=== PATIENT | female | born 1945 ===

== ENCOUNTER → 2020-01-03 12:50 | Outpatient (BNVA) | payer MEDICARE, SELFPAY | PROVIDERS: PCP Internal Medicine; Visit Provider Nurse Practitioner Family | DX: Z76.89 Persons encountering health services in other specified circumstances (principal) ==

== ENCOUNTER 2020-04-01 13:37 | Outpatient (REF) | payer MEDICARE, SELFPAY ==
[2020-04-01 14:48] LABS: Alanine Aminotransferase 14 U/L (0-31); Albumin Level 4.2 g/dL (3.5-5.0); Alkaline Phosphatase 107 U/L (39-117); Anion Gap 13 (12-20); Aspartate Amino Transferase 13 U/L (5-31); Bilirubin Total 0.5 mg/dL (0.0-1.0); Blood Urea Nitrogen 41 mg/dL (9-16); Calcium 8.8 mg/dL (8.4-10.2); Carbon Dioxide 25 mmol/L (22-29); Chloride 107 mmol/L (96-108); Cholesterol 135 mg/dL; Estimated Glomerular Filt Rate 29; Glucose Random 173 mg/dL (60-115); HDL Cholesterol 36 mg/dL; LDL Cholesterol Calculated 57 mg/dl; Potassium 5.2 mmol/L (3.3-5.1); Sodium 140 mmol/L (135-145); Total Protein 7.4 g/dL (6.5-8.0); Triglycerides 212 mg/dL
[2020-04-01 15:12] LABS: Estimated Average Glucose 143 mg/dL; Hemoglobin A1c % 6.6 %
== END 2020-04-01 13:38 | disposition home or self-care (01) ==
LOC: HO.LAB 13:37
PROVIDERS: PCP Internal Medicine; Visit Provider Internal Medicine
DX: E11.22 Type 2 diabetes mellitus with diabetic chronic kidney disease (principal); N18.9 Chronic kidney disease, unspecified; E78.2 Mixed hyperlipidemia; I15.1 Hypertension secondary to other renal disorders
CPT/HCPCS: 36415; 80053; 80061; 83036

== ENCOUNTER 2020-04-16 12:23 | Outpatient (REF) | payer MEDICARE, SELFPAY ==
--- NOTE | ~2020-04-16 | MM_ITS ---
EXAMINATION: MM SCREENING DIGITAL MAMMOGRAPHY, BILATERAL CLINICAL INFORMATION: Screening. Asymptomatic. The lifetime risk of breast cancer based on the Tyrer-Cuzick Model is 3%. COMPARISON: Mammography: 05/15/2018, 05/09/2017, 04/15/2016, 02/25/2015 TECHNIQUE: Digital mammography is performed in craniocaudal and mediolateral oblique views along with computer-aided detection (CAD). Additional right CC and right MLO views are provided. Exam is technically challenging, requiring 2 technologists for positioning. Patient in wheelchair. Exam tailored to patient capabilities. FINDINGS: The breasts are almost entirely fatty (ACR BI-RADS breast composition Category a). Background stromal and fibroglandular densities are stable. Probable dermal calcifications overlying upper right axilla and right axillary nodes similar to prior exams. No significant changes from prior studies. MM/MM screening mammo BI IMPRESSION: No mammographic evidence of malignancy. ASSESSMENT: BI-RADS 2: Benign RECOMMENDATION: Routine annual mammography screening. This patient's information was entered into a reminder system with a target due date for their next mammogram.
== END 2020-04-16 12:24 | disposition home or self-care (01) ==
LOC: HO.MAMMO 12:23
PROVIDERS: PCP Internal Medicine; Visit Provider Internal Medicine
DX: Z12.31 Encounter for screening mammogram for malignant neoplasm of breast (principal)
CPT/HCPCS: 77067

== ENCOUNTER 2020-06-17 11:20 | Outpatient (REF) | payer MEDICARE, SELFPAY ==
[2020-06-17 12:30] LABS: Estimated Average Glucose 148 mg/dL; Hemoglobin A1c % 6.8 %
[2020-06-17 12:38] LABS: Alanine Aminotransferase 11 U/L (0-31); Albumin Level 4.1 g/dL (3.5-5.0); Alkaline Phosphatase 103 U/L (39-117); Anion Gap 14 (12-20); Aspartate Amino Transferase 12 U/L (5-31); Bilirubin Total 0.4 mg/dL (0.0-1.0); Blood Urea Nitrogen 34 mg/dL (9-16); Calcium 8.9 mg/dL (8.4-10.2); Carbon Dioxide 23 mmol/L (22-29); Chloride 110 mmol/L (96-108); Estimated Glomerular Filt Rate 29; Glucose Random 160 mg/dL (60-115); Potassium 4.7 mmol/L (3.3-5.1); Sodium 142 mmol/L (135-145); Total Protein 7.1 g/dL (6.5-8.0)
== END 2020-06-17 11:21 | disposition home or self-care (01) ==
LOC: HO.LAB 11:20
PROVIDERS: Visit Provider Internal Medicine
DX: E11.22 Type 2 diabetes mellitus with diabetic chronic kidney disease (principal); I12.9 Hypertensive chronic kidney disease with stage 1 through stage 4 chronic kidney disease, or unspecified chronic kidney disease; N13.2 Hydronephrosis with renal and ureteral calculous obstruction; E78.2 Mixed hyperlipidemia
CPT/HCPCS: 36415; 80053; 83036

== ENCOUNTER → 2020-06-23 11:44 | Outpatient (BNVA) | payer MEDICARE, SELFPAY | PROVIDERS: PCP Internal Medicine; Visit Provider Urology | CPT/HCPCS: 99212 ==

== ENCOUNTER 2020-06-24 11:22 | Outpatient (REF) | payer MEDICARE, SELFPAY ==
[2020-06-24 12:29] LABS: Glucose Urine UA NEG (NEG); Leukocyte Esterase Urine 1+ (NEG); Nitrite Urine POS (NEG); PH 5.5 (5.0-8.0); Urine Blood NEG (NEG); Urine Ketones NEG (NEG); Urine Protein NEG (NEG-TRACE)
[2020-06-24 12:31] LABS: Appearance Urine HAZY; Color Urine YELLOW
[2020-06-24 13:08] LABS: Bacteria Urine 3+ /LPF; RBC Urine 0 /HPF (0); Squamous Epithelial Cell Urine 1+ /LPF
== END 2020-06-24 11:23 | disposition home or self-care (01) ==
LOC: HO.LNP 11:22
PROVIDERS: Visit Provider Urology
DX: R35.0 Frequency of micturition (principal)
CPT/HCPCS: 81001; 87086

== ENCOUNTER 2020-06-30 11:02 | Outpatient (REF) | payer MEDICARE, SELFPAY ==
[2020-06-30 11:19] LABS: Glucose Urine UA NEG (NEG); Leukocyte Esterase Urine 1+ (NEG); Nitrite Urine POS (NEG); Urine Blood NEG (NEG); Urine Ketones NEG (NEG); Urine Protein NEG (NEG-TRACE)
[2020-06-30 11:26] LABS: Appearance Urine HAZY; Color Urine YELLOW
[2020-06-30 11:47] LABS: Bacteria Urine 2+ /LPF; Mucus Urine TRACE /LPF; RBC Urine 0 /HPF (0); Squamous Epithelial Cell Urine TRACE /LPF
== END 2020-06-30 11:03 | disposition home or self-care (01) ==
LOC: HO.LNP 11:02
PROVIDERS: Visit Provider Urology
DX: R35.0 Frequency of micturition (principal)
CPT/HCPCS: 81001

== ENCOUNTER → 2020-07-09 10:25 | Outpatient (BNVA) | payer MEDICARE, SELFPAY | PROVIDERS: PCP Internal Medicine; Visit Provider Urology | DX: Z13.89 Encounter for screening for other disorder (principal) | CPT/HCPCS: 52000; 99212 ==

== ENCOUNTER 2020-08-25 13:31 | Outpatient (REF) | payer MEDICARE, SELFPAY ==
[2020-08-25 14:14] LABS: MANUAL DIFF FLAG NO
[2020-08-25 14:17] LABS: Basophils Percent Auto 0.3 % (0-2); Eosinophils Absolute Auto 0.1 X10*3/uL (0.0-0.4); Hematocrit 38.5 % (37-47); Hemoglobin 11.8 g/dl (12.0-16.0); Imm Gran Abs Auto 0.02 X10*3/uL (0.00-0.03); Imm Gran Pct Auto 0.3 % (0.0-0.4); Lymphocytes Absolute Auto 1.5 X10*3/uL (1.2-4.9); Lymphocytes Percent Auto 23.6 % (20-40); Mean Corpuscular HGB Conc 30.6 g/dl (31.0-35.0); Mean Corpuscular Hemoglobin 29.2 pg (27.0-33.0); Mean Corpuscular Volume 95.3 fL (80-98); Mean Platelet Volume 10.6 fL (9.4-12.3); Monocytes Absolute Auto 0.5 X10*3/uL (0.1-1.2); Monocytes Percent Auto 7.9 % (2-11); Neutrophils Absolute Auto 4.3 X10*3/uL (2.0-8.3); Neutrophils Percent Auto 65.9 % (45-73); Platelet Count 324 X10*3/uL (160-400); Red Blood Count 4.04 X10*6/uL (4.20-5.50); White Blood Count 6.5 X10*3/uL (4.8-10.8)
[2020-08-25 14:28] LABS: Estimated Average Glucose 163 mg/dL; Hemoglobin A1c % 7.3 %
[2020-08-25 14:40] LABS: Alanine Aminotransferase 15 U/L (0-31); Albumin Level 4.2 g/dL (3.5-5.0); Alkaline Phosphatase 123 U/L (39-117); Anion Gap 15 (12-20); Aspartate Amino Transferase 15 U/L (5-31); Bilirubin Total 0.4 mg/dL (0.0-1.0); Blood Urea Nitrogen 25 mg/dL (9-16); Calcium 9.5 mg/dL (8.4-10.2); Carbon Dioxide 27 mmol/L (22-29); Chloride 108 mmol/L (96-108); Estimated Glomerular Filt Rate 39; Glucose Random 164 mg/dL (60-115); Potassium 4.7 mmol/L (3.3-5.1); Sodium 145 mmol/L (135-145); Total Protein 7.5 g/dL (6.5-8.0)
== END 2020-08-25 13:32 | disposition home or self-care (01) ==
LOC: HO.LAB 13:31
PROVIDERS: PCP Internal Medicine; Visit Provider Internal Medicine
DX: E11.22 Type 2 diabetes mellitus with diabetic chronic kidney disease (principal); I12.9 Hypertensive chronic kidney disease with stage 1 through stage 4 chronic kidney disease, or unspecified chronic kidney disease; N18.32 Chronic kidney disease, stage 3b; E78.2 Mixed hyperlipidemia; G56.03 Carpal tunnel syndrome, bilateral upper limbs
CPT/HCPCS: 36415; 80053; 83036; 85025

== ENCOUNTER 2020-09-07 06:08 | Day surgery (SDC) | payer MEDICARE, MEDICAID, SELFPAY ==
[2020-08-24 10:39] VITALS: BMI 38.6
--- NOTE | 2020-09-02 11:56 | P.CONAN_ITS ---
Documented by User: Jenny Wang 09/02/20 11:58 HPI - Anesthesia Eval Consult details Narrative: 75yo F for Cystoscopy Botox Injection PCP cleared Cervical myelopathy - consider if intubating PMFSH Active Problems Active Problems: All Active Problems (Updated 08/24/20 @ 09:55 by Remedios Rodas) Frequency of micturition (Acute) Urgency incontinence (Acute) Past Medical History Medical History Anxiety and depression Arthritis Asthma Chronic pain Diabetes mellitus High cholesterol HTN (hypertension) Lateral malleolar fracture Limited mobility Myocardial infarction Urgency incontinence Family History Family History Father No problems noted. 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 If so, by whom?: No Are you DNR?: No Advance Directives: No Advance Directives Information Provided: No Advance Directives on File: No (? 2017) Recently lost weight without trying: No Eating poorly because of decreased appetite: No Nutrition Risks: No Nutritional Risk Patient : No Meds Allergies Allergy/AdvReac Type Severity Reaction Status Date / Time atorvastatin [ATORVASTATIN] Allergy Intermediate SWELLING Verified 08/24/20 09:36 morphine [MORPHINE] Allergy Intermediate RASH Verified 08/24/20 09:36 zolpidem [From AMBIEN] AdvReac Intermediate SLEEP WALKS Verified 08/24/20 09:36 Home Medications Medication Instructions Recorded Confirmed Last Taken Type amlodipine 2.5 mg tablet 2.5 mg PO DAILY 06/23/20 08/24/20 Unknown History metformin 850 mg tablet 850 mg PO BID 06/23/20 08/24/20 Unknown History quetiapine 100 mg tablet 100 mg PO BEDTIME 06/23/20 08/24/20 Unknown History albuterol sulfate [ProAir HFA] 1 inh INHALATION QID PRN 08/24/20 08/24/20 Unknown History fluticasone propionate [Flovent] 1 puff INHALATION BID 08/24/20 08/24/20 Unknown History gabapentin 600 mg PO BID 08/24/20 08/24/20 Unknown History glipizide 10 mg PO DAILY 08/24/20 08/24/20 Unknown History Exam Exam Date and Time: September 02, 2020 1156 Height,Weight and Vital Signs: Height 5 ft 3 in Weight 99 kg Pertinent Lab Results Pertinent Lab Results: Laboratory Tests 08/25/20 08/25/20 13:44 13:44 WBC 6.5 Hgb 11.8 L Hct 38.5 Plt Count 324 Sodium 145 Potassium 4.7 Chloride 108 Carbon Dioxide 27 BUN 25 H Creatinine 1.33 Assessment and Plan Assessment Anesthesia Assessment: Chart Reviewed Documented by User: Kerline Kwon 09/07/20 07:14 [facility] Past Medical History Medical History Anxiety and depression Arthritis Asthma Chronic pain Diabetes mellitus High cholesterol HTN (hypertension) Lateral malleolar fracture Limited mobility Myocardial infarction Urgency incontinence Family History Family History Father No problems noted. 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 If so, by whom?: No Are you DNR?: No Advance Directives: No Advance Directives Information Provided: No Advance Directives on File: No (? 2016) Recently lost weight without trying: No Eating poorly because of decreased appetite: No Nutrition Risks: No Nutritional Risk Patient : No Meds Allergies Allergy/AdvReac Type Severity Reaction Status Date / Time atorvastatin [ATORVASTATIN] Allergy Intermediate SWELLING Verified 08/24/20 09:36 morphine [MORPHINE] Allergy Intermediate RASH Verified 08/24/20 09:36 zolpidem [From AMBIEN] AdvReac Intermediate SLEEP WALKS Verified 08/24/20 09:36 Home Medications Medication Instructions Recorded Confirmed Last Taken Type amlodipine 2.5 mg tablet 2.5 mg PO DAILY 06/23/20 08/24/20 Unknown History metformin 850 mg tablet 850 mg PO BID 06/23/20 08/24/20 Unknown History quetiapine 100 mg tablet 100 mg PO BEDTIME 06/23/20 08/24/20 Unknown History albuterol sulfate [ProAir HFA] 1 inh INHALATION QID PRN 08/24/20 08/24/20 Unknown History fluticasone propionate [Flovent] 1 puff INHALATION BID 08/24/20 08/24/20 Unknown History gabapentin 600 mg PO BID 08/24/20 08/24/20 Unknown History glipizide 10 mg PO DAILY 08/24/20 08/24/20 Unknown History Exam Airway Mallampati Class: II TM Dist: >3cm Neck ROM: Full Assessment and Plan Assessment Anesthesia Assessment: Anesthesia Plan Discussed and Chart Reviewed Final Anesthetic Review NPO: Yes ASA Class: III Final Preanesthetic Review: No Changes in Pt Med Stat, Meds/Allgs Chart Reviewed, Consent Obtained/Reviewed and Anes Risks/Benef Reviewed Patient Risk: Intermediate Procedure Risk: Low Anesthetic Plan Anesthetic Plan: MAC: Disposition: Standard PACU
[2020-09-07 06:35] VITALS: BP 137/116; PULSE 62; RESP 18; TEMP 35.8; O2SAT 98
[2020-09-07 07:11] LABS: Glucose, Whole Blood 148 mg/dL (60-115)
--- NOTE | 2020-09-07 07:18 | MHC.SHP ---
Pre-Procedural Eval Section A Date of Service: 09/07/20 Section B Chief Complaint: Urge Incontinence Details of Present Illness: failed medical therapy Relevant Family History (Specify if Yes): No Relevant Social History: None Present Medications: see Short Stay Collaborative assessment Medical History: No relevant PMH History of Previous Operations: No relevant previous surgery Allergies: Allergies Allergy/AdvReac Type Severity Reaction Status Date / Time atorvastatin [ATORVASTATIN] Allergy Intermediate SWELLING Verified 08/24/20 09:36 morphine [MORPHINE] Allergy Intermediate RASH Verified 08/24/20 09:36 zolpidem [From AMBIEN] AdvReac Intermediate SLEEP WALKS Verified 08/24/20 09:36 Review of Systems Sugical H&P ROS: Negative: Constitution, Cardiovascular, Respiratory, Neurological, Psychiatric, Hem-Onc, Allergic/Immunologic, Gastrointestinal, Genitourinary, Musculoskeletal, Integumentary, Endocrine and Eyes/Ears/Nose/Throat Exam Surgical H&P Exam: Normal: HEENT, Normal: Heart, Normal: Lungs, Normal: Extremities, Normal: Abdomen, Normal: Skin and Normal: Neurological Plan Diagnosis/Plan: Unchanged (cysto Botox injection) I have reviewed the history and physical and performed a pertinent physical examination on my patient. No changes have occurred unless specified.
[2020-09-07] MEDS: Lactated Ringers 1,000 ML 50 ML IVCONT (07:24)
[2020-09-07] MEDS: levoFLOXacin 500 MG TABLET PO (07:24)
[2020-09-07 08:06] VITALS: BP 107/67; PULSE 68; RESP 14; TEMP 36.5; O2SAT 100
--- NOTE | 2020-09-07 08:08 | P.OP_ITS ---
Operative Note Operative Note Date of Service: 09/07/20 Narrative: PreOperative Diagnosis: Overactive bladder with failure of medications Post Operative Diagnosis: Overactive bladder with failure of medications Procedure: Cystoscopy with injection 100 units Botox intra detrusor muscle Surgeon: Dr Mayito Calhoun Anesthesia: Sedation Indications for procedure: Is a very pleasant 75-year-old female. Has persistent urgency and frequency. Has failed oral medications. At office cystoscopy has effective emptying with minimal urethral rotation on cough. For cystoscopy and Botox injection. Is aware of the risks and benefits particularly related to urinary retention and possible infection. Procedure: After informed consent was verified the patient was brought to the operating room and placed in a supine position. Anesthesia was administered per protocol. Cystoscopy performed with 22 Spanish cystoscope. Bladder was emptied of urine. Bladder was refilled. Using 100 units of Botox mixed in 10 cc of normal saline injections were placed at the back wall of the bladder. 0.5cc placed at each injection site. Injections were placed in a grid 5 across and for high. Injections were placed from the inferior to superior position. Trabeculations on the bladder wall with targeted for each injection site. Procedure was tolerated well. Patient was extubated and transferred in stable condition to the recovery area. Pathology: None Drains: None
[2020-09-07 08:11] VITALS: BP 157/84; PULSE 68; RESP 16; O2SAT 100
[2020-09-07 08:16] VITALS: BP 169/92; PULSE 70; O2SAT 100
[2020-09-07] MEDS: Acetaminophen 325 MG TABLET 650 MG PO (08:22)
[2020-09-07] MEDS: Phenazopyridine HCL 100 MG TABLET PO (08:23)
[2020-09-07 08:24] VITALS: BP 177/94; PULSE 79; RESP 16; O2SAT 99
[2020-09-07 08:39] VITALS: BP 107/67; PULSE 68; RESP 16; TEMP 36.5; O2SAT 99
== END 2020-09-07 09:00 | disposition home or self-care (01) ==
PROVIDERS: PCP Internal Medicine; Visit Provider Urology
PROC: 3E0K8GC Introduction of Other Therapeutic Substance into Genitourinary Tract, Via Natural or Artificial Opening Endoscopic (ICD-10-PCS; CPT 52287; principal; 2020-09-07 07:30)
DX: N39.41 Urge incontinence (principal); N32.81 Overactive bladder; I10 Essential (primary) hypertension; E11.9 Type 2 diabetes mellitus without complications; J45.909 Unspecified asthma, uncomplicated; I25.2 Old myocardial infarction; Z79.51 Long term (current) use of inhaled steroids; Z79.84 Long term (current) use of oral hypoglycemic drugs; Z79.899 Other long term (current) drug therapy; Z88.8 Allergy status to other drugs, medicaments and biological substances; Z87.891 Personal history of nicotine dependence; Z90.49 Acquired absence of other specified parts of digestive tract
CPT/HCPCS: 52287; 82947; J0585; J2250

== ENCOUNTER → 2020-09-22 12:46 | Outpatient (BNVA) | payer MEDICARE, SELFPAY | PROVIDERS: PCP Internal Medicine | DX: N39.41 Urge incontinence (principal); E11.9 Type 2 diabetes mellitus without complications; I10 Essential (primary) hypertension; E78.00 Pure hypercholesterolemia, unspecified; Z87.891 Personal history of nicotine dependence; Z99.3 Dependence on wheelchair; Z88.5 Allergy status to narcotic agent; Z88.8 Allergy status to other drugs, medicaments and biological substances | CPT/HCPCS: 51798; 99212 ==

== ENCOUNTER 2021-01-20 23:53 | Inpatient (IN) | payer MEDICARE, SELFPAY ==
--- NOTE | ~2021-01-20 | XR_ITS ---
EXAMINATION: XR BILATERAL HIPS WITH AP PELVIS CLINICAL INFORMATION: Multiple falls, weakness COMPARISON: None TECHNIQUE: AP and frog-leg lateral views of each hip and an AP view of the pelvis. FINDINGS: Alignment across the hips is anatomic with mild to moderate degenerative change bilaterally including acetabular spurring. No acute fracture is seen. Sacroiliac joints and pubic symphysis appear intact. Degenerative changes are noted in the lower lumbar spine. XR/XR hip BI w PEL1V IMPRESSION: No acute findings identified.
--- NOTE | ~2021-01-20 | CT_ITS ---
EXAMINATION: NONCONTRAST HEAD CT NONCONTRAST CERVICAL SPINE CT INDICATION INFORMATION: Multiple falls COMPARISON: 06/18/2018 TECHNIQUE: Separate noncontrast CT examinations of the head and cervical spine were performed. Coronal head CT images and coronal and sagittal cervical spine images were created at the technologist workstation. DLP: 753 mGy-cm DOSE LOWERING TECHNIQUES: This CT examination was performed using dose optimization techniques as appropriate, variously including the following: - Automated exposure control - Adjustment of mA and/or kV according to patient size (this includes techniques or standardized protocols for targeted exams were dose is matched to indication/reason for exam; i.e. extremities or head) - Use of iterative reconstruction technique FINDINGS: Head: Partially limited evaluation due to motion and streak artifact. There is no evidence of acute intracranial hemorrhage or territorial infarction. No abnormal mass-effect or midline shift is seen. Mehta to white matter differentiation is well preserved. No extra-axial fluid collections are identified. The ventricles are normal in size. There is no abnormal attenuation within the brain parenchyma. The osseous structures and soft tissues are normal. Partially opacified left mastoid tip air cells. The visualized portions of the paranasal sinuses are well-aerated. Cervical spine: There is degenerative change at the atlantodens articulation. Redemonstrated posterior spinal fusion hardware extending from C2-C6. Hardware appears intact. There is anatomic alignment of the vertebral bodies and posterior elements. Vertebral body heights are maintained. There is disc space narrowing throughout the cervical spine along with endplate osteophytes. No evidence of acute fracture. No prevertebral soft tissue swelling. Visualized portions of the lung apices are unremarkable. The thyroid gland is unremarkable. CT/CT cervical spine wo con IMPRESSION: 1. Head: Partially limited assessment due to artifact. No acute findings identified. 2. Cervical spine: No acute findings identified. Redemonstrated postoperative changes from spinal fusion.
[2021-01-21] VITALS (9 sets, daily range): BP systolic 101–173; BP diastolic 53–93; PULSE 52–112; RESP 15–20; TEMP 36.2–36.9; O2SAT 96–98; BMI 47.5
--- NOTE | 2021-01-21 | ECG_ITS ---
Test Reason : WEAKNESS Blood Pressure : / mmHG Vent. Rate : 107 BPM Atrial Rate : 000 BPM P-R Int : 000 ms QRS Dur : 084 ms QT Int : 314 ms P-R-T Axes : 000 028 037 degrees QTc Int : 419 ms Atrial fibrillation with rapid ventricular response Nonspecific T wave abnormality Abnormal ECG When compared with ECG of 10-JUN-2016 07:00, Atrial fibrillation has replaced Sinus rhythm Vent. rate has increased BY 43 BPM Referred By: Taty Thornton Electronically Signed By:Gilbert Chavarria
--- NOTE | 2021-01-21 00:27 | PC.NURSE ---
IV established, labs obtained, IVF infusing. POC reading ALEX x 2MD notified.
[2021-01-21 00:29] LABS: Glucose, Whole Blood > 600 mg/dL (60-115)
[2021-01-21 00:32] LABS: MANUAL DIFF FLAG NO
[2021-01-21 00:33] LABS: Basophils Percent Auto 0.4 % (0-2); Eosinophils Absolute Auto 0.1 X10*3/uL (0.0-0.4); Eosinophils Percent Auto 1.4 % (0-4); Hematocrit 39.9 % (37.0-47.0); Hemoglobin 12.8 g/dl (12.0-16.0); Imm Gran Abs Auto 0.02 X10*3/uL (0.00-0.03); Imm Gran Pct Auto 0.3 % (0.0-0.4); Lymphocytes Absolute Auto 1.1 X10*3/uL (1.2-4.9); Lymphocytes Percent Auto 13.7 % (20-40); Mean Corpuscular HGB Conc 32.1 g/dl (31.0-35.0); Mean Corpuscular Hemoglobin 28.7 pg (27.0-33.0); Mean Corpuscular Volume 89.5 fL (80.0-98.0); Mean Platelet Volume 11.3 fL (9.4-12.3); Monocytes Absolute Auto 0.6 X10*3/uL (0.1-1.2); Monocytes Percent Auto 7.5 % (2-11); Neutrophils Absolute Auto 6.1 x10*3/uL (2.0-8.3); Neutrophils Percent Auto 76.7 % (45-73); Platelet Count 265 X10*3/uL (160-400); Red Blood Count 4.46 X10*6/uL (4.20-5.50); Red Cell Distribution Width 13.9 % (11.0-16.0); White Blood Count 7.9 X10*3/uL (4.8-10.8)
--- NOTE | 2021-01-21 00:36 | ED.WEAKNESS ---
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 Family also reports increased lethargy and patient herself reports increased weakness and inability to adequately support herself on her legs. Patient states that she is not been good about taking her metformin and family endorses that patient had 3 high- carbohydrate drinks today. Related Data Home Medications Medication Instructions Recorded Confirmed amlodipine 2.5 mg tablet 2.5 mg PO DAILY 06/23/20 01/21/21 metformin 850 mg tablet 850 mg PO BID 06/23/20 01/21/21 quetiapine 100 mg tablet 100 mg PO BEDTIME 06/23/20 01/21/21 albuterol sulfate 90 mcg/actuation 1 inh INHALATION QID PRN 08/24/20 01/21/21 aerosol inhaler (ProAir HFA) fluticasone propionate 110 1 puff INHALATION BID 08/24/20 01/21/21 mcg/actuation HFA aerosol inhaler gabapentin 600 mg tablet 600 mg PO BID 08/24/20 01/21/21 glipizide 10 mg tablet 10 mg PO DAILY 08/24/20 01/21/21 aspirin 81 mg capsule 81 mg PO DAILY 01/21/21 01/21/21 lisinopril 20 1 tab PO DAILY 01/21/21 01/21/21 mg-hydrochlorothiazide 25 mg tablet Allergies Allergy/AdvReac Type Severity Reaction Status Date / Time atorvastatin [ATORVASTATIN] Allergy Intermediate SWELLING Verified 01/21/21 00:13 morphine [MORPHINE] Allergy Intermediate RASH Verified 01/21/21 00:13 zolpidem [From AMBIEN] AdvReac Intermediate SLEEP WALKS Verified 01/21/21 00:13 Review of Systems Review of Systems: Pertinent positives and negatives as stated in HPI 10 point review of systems is otherwise negative. PMFSH Past Medical History Source: nursing notes reviewed Medical History Anxiety and depression Arthritis Asthma Chronic pain Diabetes mellitus High cholesterol HTN (hypertension) Lateral malleolar fracture Limited mobility Myocardial infarction Urgency incontinence Surgical History H/O neck surgery History of cataract extraction History of heart artery stent Hx of cholecystectomy Hx of colonoscopy Family History Family History Father No problems noted. 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 GENERAL: Well developed, well nourished, in no acute distress. HEAD: Normocephalic/atraumatic EYES: PERRLA, EOMI OROPHARYNX: no oral lesions noted, posterior pharynx clear NECK: Supple, no adenopathy LUNGS: Normal breath sounds. No adventitious sounds or accessory muscle use. SpO2<96> CARDIOVASCULAR: Irregular and rhythm without noted murmurs, no JVD or lower extremity edema. ABDOMEN: Obese, Soft, non-tender, non-distended with bowel sounds. MUSCULOSKELETAL: No tenderness, deformities, or effusions noted on gross inspection. EXTREMITIES: No cyanosis, clubbing or edema. SKIN: Inspection of the skin reveals no rashes NEUROLOGIC: Alert and oriented x 4. Strength and sensation to light touch were grossly intact x 4, no pronator drift, strength although weakened is symmetrical, no focal deficits noted Course Course Course Narrative: 75-year-old female with history and clinical presentation consistent with suspected deconditioning, obvious hyperglycemia without evidence to suggest DKA, due to new atrial flutter and presenting symptoms will form CT scan of the head as well as imaging of the pelvis. [id number] score: 4. Patient has a history UTI and will evaluate for that as well as IV fluid resuscitation for hyperglycemia and trend point of care glucose values. Patient will be admitted for further evaluation of new onset atrial flutter with variable block of unknown duration. Review of remaining investigations positive for UTI for which patient received antibiotics, 2.5mg Lopressor were administered with good rate control and repeat EKG still demonstrates atrial fibrillation. Glucose continues to trend downward and patient will receive Lovenox for atrial fibrillation after discussion with inpatient hospitalist. Further of evaluation of patient's glucose levels demonstrates that she will require additional IVP insulin. This was discussed with both the inpatient hospitalist as well as with the auto air conditioning apprentice. Patient otherwise does not demonstrate evidence objectively or historically to support DKA or HHS. On re-evaluation patient is noted to have a point of care glucose of 304, re-discussed with auto air conditioning apprentice who agrees with admission to the floor. Reevaluation(s) Reevaluation #1: I discussed the case with the auto air conditioning apprentice who recommends to repeat 10 units of insulin IVP and re-evaluate in 1 hour. Time: 05:43 MDM - Weakness Lab Data Result diagrams: 01/21/21 00:25 01/21/21 05:02 Labs: Lab Results 01/21/21 01/21/21 01/21/21 Range/Units 00:00 00:25 00:25 WBC 7.9 (4.8-10.8) X10*3/uL RBC 4.46 (4.20-5.50) X10*6/uL Hgb 12.8 (12.0-16.0) g/dl Hct 39.9 (37.0-47.0) % MCV 89.5 (80.0-98.0) fL MCH 28.7 (27.0-33.0) pg MCHC 32.1 (31.0-35.0) g/dl RDW 13.9 (11.0-16.0) % Plt Count 265 (160-400) X10*3/uL MPV 11.3 (9.4-12.3) fL Immature Gran % (Auto) 0.3 (0.0-0.4) % Neut % (Auto) 76.7 H (45-73) % Lymph % (Auto) 13.7 L (20-40) % [place] % (Auto) 7.5 (2-11) % Eos % (Auto) 1.4 (0-4) % Baso % (Auto) 0.4 (0-2) % Lymph # (Auto) 1.1 L (1.2-4.9) X10*3/uL [place] # (Auto) 0.6 (0.1-1.2) X10*3/uL Eos # (Auto) 0.1 (0.0-0.4) X10*3/uL Baso # (Auto) 0.0 (0.0-0.2) X10*3/uL Abs Immat Gran (auto) 0.02 (0.00-0.03) X10*3/uL Absolute Neuts (auto) 6.1 (2.0-8.3) x10*3/uL Absolute Nucleated RBC 0.000 (0.0-0.012) X10*3/uL Nucleated RBC % (auto) 0.0 (0.0-0.2) /100WBC Sodium 126 L (135-145) mmol/L Potassium 5.1 (3.3-5.1) mmol/L Chloride 93 L (96-108) mmol/L Carbon Dioxide 19 L (22-29) mmol/L Anion Gap 19 (12-20) BUN 44 H (9-16) mg/dL Creatinine 2.78 H (0.5-1.4) mg/dL Estim Creat Clear Calc 21.9 Estimated GFR 17 POC Glucose > 600 H* (60-115) mg/dL Random Glucose 897 H* D (60-115) mg/dL Lactic Acid (0.5-2.0) mmol/L Calcium 8.8 D (8.4-10.2) mg/dL Total Bilirubin 0.3 (0.0-1.0) mg/dL AST 13 (5-31) U/L ALT 15 (0-31) U/L Alkaline Phosphatase 157 H D (39-117) U/L Troponin I High Sens (<3.5-17.0) ng/L B-Natriuretic Peptide (<100) pg/mL Total Protein 7.2 (6.5-8.0) g/dL Albumin 3.7 (3.5-5.0) g/dL Urine Color Urine Appearance Urine pH (5.0-8.0) Ur Specific [place] (1.005-1.025) Urine Protein (NEG-TRACE) MG/DL Urine Glucose (UA) (NEG) MG/DL Urine Ketones (NEG) MG/DL Urine Blood (NEG) Urine Nitrite (NEG) Ur Leukocyte Esterase (NEG) Urine RBC (0) /HPF Urine WBC (0-4) /HPF Ur Squamous Epith Cells /LPF Urine Bacteria /LPF Acetone, Qual Negative (Negative) COVID-19 (REE) (Negative) COVID-19 Clin Com 01/21/21 01/21/21 01/21/21 Range/Units 00:25 01:08 02:38 WBC (4.8-10.8) X10*3/uL RBC (4.20-5.50) X10*6/uL Hgb (12.0-16.0) g/dl Hct (37.0-47.0) % MCV (80.0-98.0) fL MCH (27.0-33.0) pg MCHC (31.0-35.0) g/dl RDW (11.0-16.0) % Plt Count (160-400) X10*3/uL MPV (9.4-12.3) fL Immature Gran % (Auto) (0.0-0.4) % Neut % (Auto) (45-73) % Lymph % (Auto) (20-40) % [place] % (Auto) (2-11) % Eos % (Auto) (0-4) % Baso % (Auto) (0-2) % Lymph # (Auto) (1.2-4.9) X10*3/uL [place] # (Auto) (0.1-1.2) X10*3/uL Eos # (Auto) (0.0-0.4) X10*3/uL Baso # (Auto) (0.0-0.2) X10*3/uL Abs Immat Gran (auto) (0.00-0.03) X10*3/uL Absolute Neuts (auto) (2.0-8.3) x10*3/uL Absolute Nucleated RBC (0.0-0.012) X10*3/uL Nucleated RBC % (auto) (0.0-0.2) /100WBC Sodium (135-145) mmol/L Potassium (3.3-5.1) mmol/L Chloride (96-108) mmol/L Carbon Dioxide (22-29) mmol/L Anion Gap (12-20) BUN (9-16) mg/dL Creatinine (0.5-1.4) mg/dL Estim Creat Clear Calc Estimated GFR POC Glucose (60-115) mg/dL Random Glucose (60-115) mg/dL Lactic Acid (0.5-2.0) mmol/L Calcium (8.4-10.2) mg/dL Total Bilirubin (0.0-1.0) mg/dL AST (5-31) U/L ALT (0-31) U/L Alkaline Phosphatase (39-117) U/L Troponin I High Sens 7.5 (<3.5-17.0) ng/L B-Natriuretic Peptide 31 (<100) pg/mL Total Protein (6.5-8.0) g/dL Albumin (3.5-5.0) g/dL Urine Color YELLOW Urine Appearance HAZY Urine pH 5.5 (5.0-8.0) Ur Specific [place] 1.010 (1.005-1.025) Urine Protein NEG (NEG-TRACE) MG/DL Urine Glucose (UA) >=1000 H (NEG) MG/DL Urine Ketones NEG (NEG) MG/DL Urine Blood TRACE (NEG) Urine Nitrite POS H (NEG) Ur Leukocyte Esterase 1+ H (NEG) Urine RBC 1-4 (0) /HPF Urine WBC 50-75 H (0-4) /HPF Ur Squamous Epith Cells 1+ /LPF Urine Bacteria 4+ /LPF Acetone, Qual (Negative) COVID-19 (REE) Negative (Negative) COVID-19 Clin Com See Note 01/21/21 01/21/21 01/21/21 Range/Units 02:57 03:12 03:59 WBC (4.8-10.8) X10*3/uL RBC (4.20-5.50) X10*6/uL Hgb (12.0-16.0) g/dl Hct (37.0-47.0) % MCV (80.0-98.0) fL MCH (27.0-33.0) pg MCHC (31.0-35.0) g/dl RDW (11.0-16.0) % Plt Count (160-400) X10*3/uL MPV (9.4-12.3) fL Immature Gran % (Auto) (0.0-0.4) % Neut % (Auto) (45-73) % Lymph % (Auto) (20-40) % [place] % (Auto) (2-11) % Eos % (Auto) (0-4) % Baso % (Auto) (0-2) % Lymph # (Auto) (1.2-4.9) X10*3/uL [place] # (Auto) (0.1-1.2) X10*3/uL Eos # (Auto) (0.0-0.4) X10*3/uL Baso # (Auto) (0.0-0.2) X10*3/uL Abs Immat Gran (auto) (0.00-0.03) X10*3/uL Absolute Neuts (auto) (2.0-8.3) x10*3/uL Absolute Nucleated RBC (0.0-0.012) X10*3/uL Nucleated RBC % (auto) (0.0-0.2) /100WBC Sodium 129 L (135-145) mmol/L Potassium 5.4 H (3.3-5.1) mmol/L Chloride 100 (96-108) mmol/L Carbon Dioxide 21 L (22-29) mmol/L Anion Gap 13 (12-20) BUN 40 H (9-16) mg/dL Creatinine 2.39 H (0.5-1.4) mg/dL Estim Creat Clear Calc 25.5 Estimated GFR 20 POC Glucose > 600 H* (60-115) mg/dL Random Glucose 734 H* (60-115) mg/dL Lactic Acid 1.6 (0.5-2.0) mmol/L Calcium 8.4 (8.4-10.2) mg/dL Total Bilirubin (0.0-1.0) mg/dL AST (5-31) U/L ALT (0-31) U/L Alkaline Phosphatase (39-117) U/L Troponin I High Sens (<3.5-17.0) ng/L B-Natriuretic Peptide (<100) pg/mL Total Protein (6.5-8.0) g/dL Albumin (3.5-5.0) g/dL Urine Color Urine Appearance Urine pH (5.0-8.0) Ur Specific [place] (1.005-1.025) Urine Protein (NEG-TRACE) MG/DL Urine Glucose (UA) (NEG) MG/DL Urine Ketones (NEG) MG/DL Urine Blood (NEG) Urine Nitrite (NEG) Ur Leukocyte Esterase (NEG) Urine RBC (0) /HPF Urine WBC (0-4) /HPF Ur Squamous Epith Cells /LPF Urine Bacteria /LPF Acetone, Qual (Negative) COVID-19 (REE) (Negative) COVID-19 Clin Com 01/21/21 01/21/21 01/21/21 Range/Units 04:07 05:00 05:02 WBC (4.8-10.8) X10*3/uL RBC (4.20-5.50) X10*6/uL Hgb (12.0-16.0) g/dl Hct (37.0-47.0) % MCV (80.0-98.0) fL MCH (27.0-33.0) pg MCHC (31.0-35.0) g/dl RDW (11.0-16.0) % Plt Count (160-400) X10*3/uL MPV (9.4-12.3) fL Immature Gran % (Auto) (0.0-0.4) % Neut % (Auto) (45-73) % Lymph % (Auto) (20-40) % [place] % (Auto) (2-11) % Eos % (Auto) (0-4) % Baso % (Auto) (0-2) % Lymph # (Auto) (1.2-4.9) X10*3/uL [place] # (Auto) (0.1-1.2) X10*3/uL Eos # (Auto) (0.0-0.4) X10*3/uL Baso # (Auto) (0.0-0.2) X10*3/uL Abs Immat Gran (auto) (0.00-0.03) X10*3/uL Absolute Neuts (auto) (2.0-8.3) x10*3/uL Absolute Nucleated RBC (0.0-0.012) X10*3/uL Nucleated RBC % (auto) (0.0-0.2) /100WBC Sodium 135 (135-145) mmol/L Potassium 4.4 (3.3-5.1) mmol/L Chloride 107 (96-108) mmol/L Carbon Dioxide 19 L (22-29) mmol/L Anion Gap 13 (12-20) BUN 37 H (9-16) mg/dL Creatinine 2.11 H (0.5-1.4) mg/dL Estim Creat Clear Calc 28.9 Estimated GFR 23 POC Glucose 545 H* 502 H* (60-115) mg/dL Random Glucose 589 H* (60-115) mg/dL Lactic Acid (0.5-2.0) mmol/L Calcium 8.0 L (8.4-10.2) mg/dL Total Bilirubin (0.0-1.0) mg/dL AST (5-31) U/L ALT (0-31) U/L Alkaline Phosphatase (39-117) U/L Troponin I High Sens (<3.5-17.0) ng/L B-Natriuretic Peptide (<100) pg/mL Total Protein (6.5-8.0) g/dL Albumin (3.5-5.0) g/dL Urine Color Urine Appearance Urine pH (5.0-8.0) Ur Specific [place] (1.005-1.025) Urine Protein (NEG-TRACE) MG/DL Urine Glucose (UA) (NEG) MG/DL Urine Ketones (NEG) MG/DL Urine Blood (NEG) Urine Nitrite (NEG) Ur Leukocyte Esterase (NEG) Urine RBC (0) /HPF Urine WBC (0-4) /HPF Ur Squamous Epith Cells /LPF Urine Bacteria /LPF Acetone, Qual (Negative) COVID-19 (REE) (Negative) COVID-19 Clin Com 01/21/21 Range/Units 07:35 WBC (4.8-10.8) X10*3/uL RBC (4.20-5.50) X10*6/uL Hgb (12.0-16.0) g/dl Hct (37.0-47.0) % MCV (80.0-98.0) fL MCH (27.0-33.0) pg MCHC (31.0-35.0) g/dl RDW (11.0-16.0) % Plt Count (160-400) X10*3/uL MPV (9.4-12.3) fL Immature Gran % (Auto) (0.0-0.4) % Neut % (Auto) (45-73) % Lymph % (Auto) (20-40) % [place] % (Auto) (2-11) % Eos % (Auto) (0-4) % Baso % (Auto) (0-2) % Lymph # (Auto) (1.2-4.9) X10*3/uL [place] # (Auto) (0.1-1.2) X10*3/uL Eos # (Auto) (0.0-0.4) X10*3/uL Baso # (Auto) (0.0-0.2) X10*3/uL Abs Immat Gran (auto) (0.00-0.03) X10*3/uL Absolute Neuts (auto) (2.0-8.3) x10*3/uL Absolute Nucleated RBC (0.0-0.012) X10*3/uL Nucleated RBC % (auto) (0.0-0.2) /100WBC Sodium (135-145) mmol/L Potassium (3.3-5.1) mmol/L Chloride (96-108) mmol/L Carbon Dioxide (22-29) mmol/L Anion Gap (12-20) BUN (9-16) mg/dL Creatinine (0.5-1.4) mg/dL Estim Creat Clear Calc Estimated GFR POC Glucose 304 H (60-115) mg/dL Random Glucose (60-115) mg/dL Lactic Acid (0.5-2.0) mmol/L Calcium (8.4-10.2) mg/dL Total Bilirubin (0.0-1.0) mg/dL AST (5-31) U/L ALT (0-31) U/L Alkaline Phosphatase (39-117) U/L Troponin I High Sens (<3.5-17.0) ng/L B-Natriuretic Peptide (<100) pg/mL Total Protein (6.5-8.0) g/dL Albumin (3.5-5.0) g/dL Urine Color Urine Appearance Urine pH (5.0-8.0) Ur Specific [place] (1.005-1.025) Urine Protein (NEG-TRACE) MG/DL Urine Glucose (UA) (NEG) MG/DL Urine Ketones (NEG) MG/DL Urine Blood (NEG) Urine Nitrite (NEG) Ur Leukocyte Esterase (NEG) Urine RBC (0) /HPF Urine WBC (0-4) /HPF Ur Squamous Epith Cells /LPF Urine Bacteria /LPF Acetone, Qual (Negative) COVID-19 (REE) (Negative) COVID-19 Clin Com ECG Data Attestation: I personally reviewed and interpreted this ECG as follows: Prior ECG tracings: available for review (06/10/2016) Interpretation: Atrial flutter with variable block, HR-107, QRS/QTC are within normal limits. 0433: Atrial fibrillation, HR-88, QRS/QTc wnl Critical Care Time Critical Care Time Critical Care Time: Yes Total Critical Care Time: 30 Attestation: I personally attest to this time spent taking care of the patient. Discharge Plan Discharge Clinical Impression: Hyperglycemia, Atrial flutter, LETHA (acute kidney injury), Multiple falls, Acute UTI Patient Disposition: Admitted As Inpatient
[2021-01-21 00:42] LABS: Acetone, serum QL Negative (Negative)
[2021-01-21] MEDS: 0.9 % Sodium Chloride 2,000 ML 999 ML IV ×2 (00:46→03:28)
[2021-01-21 00:54] LABS: Troponin-I High Sensitivity 7.5 ng/L (<3.5-17.0)
[2021-01-21 00:56] LABS: Alanine Aminotransferase 15 U/L (0-31); Albumin Level 3.7 g/dL (3.5-5.0); Alkaline Phosphatase 157 U/L (39-117); Anion Gap 19 (12-20); Aspartate Amino Transferase 13 U/L (5-31); Bilirubin Total 0.3 mg/dL (0.0-1.0); Blood Urea Nitrogen 44 mg/dL (9-16); Calcium 8.8 mg/dL (8.4-10.2); Carbon Dioxide 19 mmol/L (22-29); Chloride 93 mmol/L (96-108); Creatinine Clr Calc Pharmacy 21.9; Estimated Glomerular Filt Rate 17; Glucose Random 897 mg/dL (60-115); Potassium 5.1 mmol/L (3.3-5.1); Sodium 126 mmol/L (135-145); Total Protein 7.2 g/dL (6.5-8.0)
[2021-01-21 01:27] LABS: COVID-19 Test Negative (Negative); IDNOW Serial# 9DD0AD1C
--- NOTE | 2021-01-21 01:50 | PC.NURSE ---
PT having CT and xray performed at this time.
[2021-01-21 02:35] LABS: B Type Natriuretic Peptide 31 pg/mL (<100)
[2021-01-21 02:54] LABS: Appearance Urine HAZY; Color Urine YELLOW; Glucose Urine UA >=1000 MG/DL (NEG); Leukocyte Esterase Urine 1+ (NEG); Nitrite Urine POS (NEG); PH 5.5 (5.0-8.0); UACC Culture Trigger YES; Urine Blood TRACE (NEG); Urine Ketones NEG (NEG); Urine Protein NEG (NEG-TRACE)
[2021-01-21 03:00] LABS: Bacteria Urine 4+ /LPF; Squamous Epithelial Cell Urine 1+ /LPF; WBC Urine 50-75 /HPF (0-4)
[2021-01-21] MEDS: Metoprolol Tartrate 5 MG/5 ML VIAL 2.5 MG IVPUSH (03:27)
[2021-01-21] MEDS: Insulin Regular, Human 100 UNIT/ML 3 ML VIAL 12 UNIT IVPUSH (03:31)
[2021-01-21 03:46] LABS: Anion Gap 13 (12-20); Blood Urea Nitrogen 40 mg/dL (9-16); Calcium 8.4 mg/dL (8.4-10.2); Carbon Dioxide 21 mmol/L (22-29); Chloride 100 mmol/L (96-108); Creatinine Clr Calc Pharmacy 25.5; Estimated Glomerular Filt Rate 20; Potassium 5.4 mmol/L (3.3-5.1); Sodium 129 mmol/L (135-145)
[2021-01-21 03:57] LABS: Glucose Random 734 mg/dL (60-115)
[2021-01-21 04:08] LABS: Glucose, Whole Blood > 600 mg/dL (60-115)
[2021-01-21 04:11] LABS: Glucose, Whole Blood 545 mg/dL (60-115)
[2021-01-21 04:14] LABS: Lactic Acid 1.6 mmol/L (0.5-2.0)
[2021-01-21] MEDS: cefTRIAXone sodium 1 GM in 0.9 % Sodium Chloride 50 ML IV (04:18)
--- NOTE | 2021-01-21 04:27 | ECG_ITS ---
Test Reason : FALL Blood Pressure : / mmHG Vent. Rate : 088 BPM Atrial Rate : 000 BPM P-R Int : 000 ms QRS Dur : 076 ms QT Int : 382 ms P-R-T Axes : 000 037 069 degrees QTc Int : 462 ms Atrial fibrillation Nonspecific T wave abnormality Abnormal ECG When compared with ECG of 21-JAN-2021 00:50, No significant change was found Referred By: Taty Thornton Electronically Signed By:Gilbert Chavarria
[2021-01-21 05:05] LABS: Glucose, Whole Blood 502 mg/dL (60-115)
[2021-01-21] MEDS: Insulin Lispro 100 UNIT/ML 3 ML VIAL SUBCUT ×4 (05:27→21:41)
[2021-01-21 05:28] LABS: Anion Gap 13 (12-20); Blood Urea Nitrogen 37 mg/dL (9-16); Carbon Dioxide 19 mmol/L (22-29); Chloride 107 mmol/L (96-108); Creatinine Clr Calc Pharmacy 28.9; Estimated Glomerular Filt Rate 23; Glucose Random 589 mg/dL (60-115); Potassium 4.4 mmol/L (3.3-5.1); Sodium 135 mmol/L (135-145)
[2021-01-21] MEDS: Enoxaparin Sodium 120 MG/0.8 ML SYRINGE SUBCUT (06:23)
[2021-01-21] MEDS: Insulin Regular, Human 100 UNIT/ML 3 ML VIAL 10 UNIT IVPUSH (06:33)
--- NOTE | 2021-01-21 07:33 | PC.NURSE ---
Pt refusing bloodwork at this time. RN made aware.
[2021-01-21 07:38] LABS: Glucose, Whole Blood 304 mg/dL (60-115)
[2021-01-21 08:14] LABS: Glucose, Whole Blood > 600 mg/dL (60-115)
[2021-01-21 08:14] LABS: Glucose, Whole Blood > 600 mg/dL (60-115)
[2021-01-21] MEDS: Aspirin Enteric Coated 81 MG TABLET.DR PO (09:40)
[2021-01-21] MEDS: Gabapentin 600 MG TABLET PO ×2 (09:40→21:32)
--- NOTE | 2021-01-21 10:32 | PM.IMHP ---
History of Present Illness Date of Service: 01/21/21 Chief Complaint: Weakness and Falls This is a 75 yo F who is wheel chair bound with a PMH of DM, HTN, Urinary incontinence, Asthma, HLD, CAD s/p VA with stenting who presents to the hospital with complaints of multiple falls (3) over the last 1 week. Patient does speak some [place]i, but interperter services are used for the full history. She reports that has sustained 3 falls over the last 1 week, all of which have occurred in the same manner. She reports that she uses a power wheel chair and does transfer from chair to bed by herself. During this process, she frequently moves the wheel chair, by accident and ends up falling on her bottom. She denies any loss of consciousness. She denies any seizure type activity. She denies any current pain. In regards to her diabetes, she reports only being on oral treatment. She reports that she has not missed any doses of her metformin / glipizide. She does endorse however that she does not follow a diabetic diet and often has drinks with high sugar content. She also endorses chronic urinary incontinence, but more recently over the last several weeks she reports dysuria and cloudy urine. She denies any fevers or chills. Denies any flank pain. In the ED, her work up showed acute kidney injury (SCr 2.78) with a baseline around 1.3. Her blood glucose was 897 with a negative gap / acetone. She was also in new onset rapid a. fib and her UA was suggestive of UTI. A CT c-spine / head were negative for acute findings, as was hip/pelvic XR. She was given a dose of lovenox (for a. fib -- Chadsvasc score of 5), Multiple rounds of IV and sucbutaneous insulin, 2L IVF, 1 dose of rocephin , IV meotprolol. She had persistent hyperglycemia and LETHA and now will be admitted for further care. Review of Systems Review of Systems: negative except what is mentioned in the [facility] Medical History Anxiety and depression Arthritis Asthma Chronic pain Diabetes mellitus High cholesterol HTN (hypertension) Lateral malleolar fracture Limited mobility Myocardial infarction Urgency incontinence Family History Father No problems noted. Mother Diabetes High blood pressure Stomach cancer Surgical History H/O neck surgery History of cataract extraction History of heart artery stent Hx of cholecystectomy Hx of colonoscopy Social History Household Members: None Housing: Assisted Living Facility Are you a primary day care teacher to a significant other at home: No Do you presently have visiting nurse or other home services: Yes (ISAEL, SERGIO) Alcohol intake: current Alcohol intake frequency: does not drink Patient Tobacco Use Status: Former Tobacco user Quit Date: 2004 Tobacco use type: Cigarette Years Smoked: 30-40 years Second Hand Smoke Exposure: No Advance Directives: No Advance Directives Information Provided: No Meds Allergies Allergy/AdvReac Type Severity Reaction Status Date / Time atorvastatin [ATORVASTATIN] Allergy Intermediate SWELLING Verified 01/21/21 00:13 morphine [MORPHINE] Allergy Intermediate RASH Verified 01/21/21 00:13 zolpidem [From AMBIEN] AdvReac Intermediate SLEEP WALKS Verified 01/21/21 00:13 Active Medications: Current Medications Acetaminophen (Acetaminophen 325 Mg Tablet) 650 mg PO Q6H PRN PRN Reason: Pain, Mild (Pain Scale 1-3) Albuterol Sulfate (Albuterol Sulfate 90 Mcg 8 Gm Inhaler) 1 puff INHALE QID PRN PRN Reason: Wheezing Aspirin (Aspirin Enteric Coated 81 Mg Tablet.) 81 mg PO DAILY [facility] Last Admin: 01/21/21 09:40 Dose: 81 mg Documented by: Dextrose (Dextrose 50 % 25 Gm/50 Ml Vial) 25 gm IVPUSH Q15M PRN; Protocol PRN Reason: per Hypoglycemia Standing Ord. Gabapentin (Gabapentin 600 Mg Tablet) 600 mg PO BID [facility] Last Admin: 01/21/21 09:40 Dose: 600 mg Documented by: Glucose (Glucose Gel 15 Gm Gel..Gram.) 15 gm PO Q15M PRN; Protocol PRN Reason: per Hypoglycemia Standing Ord. Insulin Human Lispro (Insulin Lispro 100 Unit/Ml 3 Ml Vial) 0 unit SUBCUT QIDACHS [facility]; Protocol Sodium Chloride (0.9 % Sodium Chloride Flush 3 Ml Syringe) [facility] Home Medications Medication Instructions Recorded Confirmed Last Taken Type amlodipine 2.5 mg tablet 2.5 mg PO DAILY 06/23/20 01/21/21 Unknown History metformin 850 mg tablet 850 mg PO BID 06/23/20 01/21/21 01/19/21 10:00 History quetiapine 100 mg tablet 100 mg PO BEDTIME 06/23/20 01/21/21 Unknown History albuterol sulfate 90 mcg/actuation 1 inh INHALATION QID PRN 08/24/20 01/21/21 Unknown History aerosol inhaler (ProAir HFA) fluticasone propionate 110 1 puff INHALATION BID 08/24/20 01/21/21 01/20/21 13:00 History mcg/actuation HFA aerosol inhaler gabapentin 600 mg tablet 600 mg PO BID 08/24/20 01/21/21 01/20/21 09:00 History glipizide 10 mg tablet 10 mg PO DAILY 08/24/20 01/21/21 01/19/21 09:00 History aspirin 81 mg capsule 81 mg PO DAILY 01/21/21 01/21/21 Unknown History lisinopril 20 1 tab PO DAILY 01/21/21 01/21/21 Unknown History mg-hydrochlorothiazide 25 mg tablet Physical Exam Vital Signs and Narrative: Vital Signs: Last Vital Signs Temp 98.4 F 01/21/21 00:07 Pulse 81 01/21/21 06:18 Resp 15 01/21/21 06:18 BP 115/78 01/21/21 06:18 Pulse Ox 98 01/21/21 06:18 BMI result Body Mass Index 47.5 Const: Other: Constitutional - Awake and Alert, No apparent distress Eyes - PERRLA, EOMI Cardiovascular - S1S2, IRR, no LE edema or JVD Respiratory - Normal lung expansion, Normal respiratory effort, No respiratory distress, CTA bilaterally Gastrointestinal - NT / ND; +BS; No rebound or guarding - No CVA tenderness Extremities - no calf tenderness bilaterally, no swelling Musculoskeletal - Normal inspection Skin - Warm/Dry Neurological - Alert & oriented x3, No facial asymmetry, CN 2-12 in tact; B/L UE strenght NL; LLE 3/5; RLE 4/5 (unchanged per patient report) Psychological - Appropriate affect Results Labs CBC and Chem 7: 01/21/21 00:25 01/21/21 05:02 Labs: Laboratory Results - last 24 hr 01/21/21 01/21/21 01/21/21 00:00 00:01 00:25 MCV 89.5 MCH 28.7 MCHC 32.1 RDW 13.9 Plt Count 265 MPV 11.3 Immature Gran % (Auto) 0.3 Neut % (Auto) 76.7 H Lymph % (Auto) 13.7 L Faulk % (Auto) 7.5 Eos % (Auto) 1.4 Baso % (Auto) 0.4 Lymph # (Auto) 1.1 L Faulk # (Auto) 0.6 Eos # (Auto) 0.1 Baso # (Auto) 0.0 Abs Immat Gran (auto) 0.02 Absolute Neuts (auto) 6.1 Absolute Nucleated RBC 0.000 Nucleated RBC % (auto) 0.0 Anion Gap Estim Creat Clear Calc Estimated GFR POC Glucose > 600 H* > 600 H* Random Glucose Lactic Acid Calcium Total Bilirubin AST ALT Alkaline Phosphatase Troponin I High Sens B-Natriuretic Peptide Total Protein Albumin Urine Color Urine Appearance Urine pH Ur Specific [place] Urine Protein Urine Glucose (UA) Urine Ketones Urine Blood Urine Nitrite Ur Leukocyte Esterase Urine RBC Urine WBC Ur Squamous Epith Cells Urine Bacteria Acetone, Qual COVID-19 (REE) COVID-19 Clin Com 01/21/21 01/21/21 01/21/21 00:25 00:25 01:08 MCV MCH MCHC RDW Plt Count MPV Immature Gran % (Auto) Neut % (Auto) Lymph % (Auto) Faulk % (Auto) Eos % (Auto) Baso % (Auto) Lymph # (Auto) Faulk # (Auto) Eos # (Auto) Baso # (Auto) Abs Immat Gran (auto) Absolute Neuts (auto) Absolute Nucleated RBC Nucleated RBC % (auto) Anion Gap 19 Estim Creat Clear Calc 21.9 Estimated GFR 17 POC Glucose Random Glucose 897 H* D Lactic Acid Calcium 8.8 D Total Bilirubin 0.3 AST 13 ALT 15 Alkaline Phosphatase 157 H D Troponin I High Sens 7.5 B-Natriuretic Peptide 31 Total Protein 7.2 Albumin 3.7 Urine Color Urine Appearance Urine pH Ur Specific [place] Urine Protein Urine Glucose (UA) Urine Ketones Urine Blood Urine Nitrite Ur Leukocyte Esterase Urine RBC Urine WBC Ur Squamous Epith Cells Urine Bacteria Acetone, Qual Negative COVID-19 (REE) Negative COVID-19 Clin Com See Note 01/21/21 01/21/2101/21/21 02:38 02:57 02:58 MCV MCH MCHC RDW Plt Count MPV Immature Gran % (Auto) Neut % (Auto) Lymph % (Auto) Faulk % (Auto) Eos % (Auto) Baso % (Auto) Lymph # (Auto) Faulk # (Auto) Eos # (Auto) Baso # (Auto) Abs Immat Gran (auto) Absolute Neuts (auto) Absolute Nucleated RBC Nucleated RBC % (auto) Anion Gap Estim Creat Clear Calc Estimated GFR POC Glucose > 600 H* > 600 H* Random Glucose Lactic Acid Calcium Total Bilirubin AST ALT Alkaline Phosphatase Troponin I High Sens B-Natriuretic Peptide Total Protein Albumin Urine Color YELLOW Urine Appearance HAZY Urine pH 5.5 Ur Specific [place] 1.010 Urine Protein NEG Urine Glucose (UA) >=1000 H Urine Ketones NEG Urine Blood TRACE Urine Nitrite POS H Ur Leukocyte Esterase 1+ H Urine RBC 1-4 Urine WBC 50-75 H Ur Squamous Epith Cells 1+ Urine Bacteria 4+ Acetone, Qual COVID-19 (REE) COVID-19 [facility] 01/21/21 01/21/21 01/21/21 03:12 03:59 04:07 MCV MCH MCHC RDW Plt Count MPV Immature Gran % (Auto) Neut % (Auto) Lymph % (Auto) Faulk % (Auto) Eos % (Auto) Baso % (Auto) Lymph # (Auto) Faulk # (Auto) Eos # (Auto) Baso # (Auto) Abs Immat Gran (auto) Absolute Neuts (auto) Absolute Nucleated RBC Nucleated RBC % (auto) Anion Gap 13 Estim Creat Clear Calc 25.5 Estimated GFR 20 POC Glucose 545 H* Random Glucose 734 H* Lactic Acid 1.6 Calcium 8.4 Total Bilirubin AST ALT Alkaline Phosphatase Troponin I High Sens B-Natriuretic Peptide Total Protein Albumin Urine Color Urine Appearance Urine pH Ur Specific [place] Urine Protein Urine Glucose (UA) Urine Ketones Urine Blood Urine Nitrite Ur Leukocyte Esterase Urine RBC Urine WBC Ur Squamous Epith Cells Urine Bacteria Acetone, Qual COVID-19 (REE) COVID-19 Clin Com 01/21/21 01/21/21 01/21/21 05:00 05:02 07:35 MCV MCH MCHC RDW Plt Count MPV Immature Gran % (Auto) Neut % (Auto) Lymph % (Auto) Faulk % (Auto) Eos % (Auto) Baso % (Auto) Lymph # (Auto) Faulk # (Auto) Eos # (Auto) Baso # (Auto) Abs Immat Gran (auto) Absolute Neuts (auto) Absolute Nucleated RBC Nucleated RBC % (auto) Anion Gap 13 Estim Creat Clear Calc 28.9 Estimated GFR 23 POC Glucose 502 H* 304 H Random Glucose 589 H* Lactic Acid Calcium 8.0 L Total Bilirubin AST ALT Alkaline Phosphatase Troponin I High Sens B-Natriuretic Peptide Total Protein Albumin Urine Color Urine Appearance Urine pH Ur Specific [place] Urine Protein Urine Glucose (UA) Urine Ketones Urine Blood Urine Nitrite Ur Leukocyte Esterase Urine RBC Urine WBC Ur Squamous Epith Cells Urine Bacteria Acetone, Qual COVID-19 (REE) COVID-19 Clin Com Imaging Radiologist's Impressions: Impressions Cervical Spine CT 01/21/21 01:40 IMPRESSION: 1. Head: Partially limited assessment due to artifact. No acute findings identified. 2. Cervical spine: No acute findings identified. Redemonstrated postoperative changes from spinal fusion. Head CT 01/21/21 01:45 IMPRESSION: 1. Head: Partially limited assessment due to artifact. No acute findings identified. 2. Cervical spine: No acute findings identified. Redemonstrated postoperative changes from spinal fusion. Hip/Pelvis X-Ray 01/21/21 01:55 IMPRESSION: No acute findings identified. Assessment and Plan (1) LETHA (acute kidney injury): Status: Acute This is a 75 yo F with multiple medical problems who presents to the hospital after sustained mechanical falls over the last week. She is found to have LETHA, severe hyperglycemia, new onset a. fib and UTI. She will be admitted for further treatment. 1. Acute Kidney Injury Baseline SCr around 1.3, presented >2x elevation of 2.78 Likely pre-renal from dehydration secondary to severe hyperglycemia Received 2L IVF in the ED with minimal improvement in renal function; Continue LR @ 100 cc/hr Check CPK in light of her recent falls Monitor I/O If not improved by tomorrow, will check renal ultrasound / get nephrology on the case 2. Uncontrolled DM presented with POC >800; last chem shows glucose >500 Check POC now and QIDACHS Patient reports non-compliance with a diabetic diet Will check a HBA1C Hold oral meds 3. New-onset A. Fib initially rapid HR in the 120, but has responded to IV metoprolol start PO metoprolol this afternoon CHADSVASC score of 5 -- received 120mg of lovenox (1mg/kg); Start oral OAC tomorrow; D/w her and her daughter on the phone about risk v benefits. Both are in agreement to start anticoagulation 4. UTI UA positive and she reports dysuria / cloudy urine IV rocephin; follow culturews Patient does not have sepsis at this time 5. Hyponatremia (pseudo -- from hyperglycemia) and hyperK both improving monitor 6. CAD - s/p [facility] + Stenting continue asa / statin Betablocker to be added as above continue baseline meds once med rec completed and if appropriate. Full Code Quality Stroke Does the patient have a stroke diagnosis?: No VTE Prior VTE?: No VTE Risk Level:: Medical - moderate - high VTE Device Contraindication: Treatment Not Indicated VTE Drug Contraindication: N/A - Med Ordered
[2021-01-21 11:04] LABS: Hematocrit 37.9 % (37.0-47.0); Hemoglobin 12.3 g/dl (12.0-16.0); Mean Corpuscular HGB Conc 32.5 g/dl (31.0-35.0); Mean Corpuscular Hemoglobin 28.5 pg (27.0-33.0); Mean Corpuscular Volume 87.7 fL (80.0-98.0); Mean Platelet Volume 10.9 fL (9.4-12.3); Platelet Count 244 X10*3/uL (160-400); Red Blood Count 4.32 X10*6/uL (4.20-5.50); Red Cell Distribution Width 13.7 % (11.0-16.0); White Blood Count 8.7 X10*3/uL (4.8-10.8)
--- NOTE | 2021-01-21 11:15 | PHA.MEDREC ---
Pharmacy Consult ? Medication Reconciliation Pharmacy has completed the medication reconciliation.
[2021-01-21 11:19] LABS: Prothrombin Time 11.5 SEC (9.9-13.0)
[2021-01-21 11:22] LABS: Partial Thromboplastin Time 39.1 SEC (24.1-38.0)
[2021-01-21 11:45] LABS: Glucose, Whole Blood 341 mg/dL (60-115)
[2021-01-21] MEDS: Lactated Ringers 1,000 ML 100 ML IVCONT ×2 (12:44→22:05)
[2021-01-21 14:50] LABS: Estimated Average Glucose 266 mg/dL; Hemoglobin A1c % 10.9 %
[2021-01-21 17:57] LABS: Glucose, Whole Blood 410 mg/dL (60-115)
--- NOTE | 2021-01-21 18:18 | MHC.CM.PN ---
Addendum entered by Heidi Nieto 01/21/21 18:27: No referrals placed pending hospital course. Original Note: CM met with admitted patient with bed assignment pending. A&Ox3. air quality chemist used as pt is Citizen [place] speaking only. IMM reviewed and signed per protocol 01/21/21@ 1805. Copy given and to medical records. HCP on file. HCP Batool Woodard ([phone]). Pt lives alone.Has CRA services through [employer]/granddaughter. Pt is W/C bound and has an electric W/C. Also has DM supplies at home. Pt is fully vaccinated with IntooBR. PCP is Dr. Phelan. D/C plan is home with continued services and / VNA services for DM education/medication management. Pt will need BLS transportation home. CM to follow for d/c needs.
[2021-01-21 21:33] LABS: Glucose, Whole Blood 413 mg/dL (60-115)
[2021-01-21] MEDS: 0.9 % Sodium Chloride Flush 3 ML SYRINGE IVFLUSH (22:10)
[2021-01-21 22:27] LABS: Glucose, Whole Blood 418 mg/dL (60-115)
[2021-01-22] VITALS (7 sets, daily range): BP systolic 131–145; BP diastolic 82–101; PULSE 74–102; RESP 17–19; TEMP 36.2–37.2; O2SAT 97–99
--- NOTE | 2021-01-22 01:59 | CONS_ITS ---
DATE OF SERVICE: REASON FOR CONSULTATION: I was called to see this patient to assist in the management of acute kidney injury. HISTORY OF PRESENT ILLNESS: To summarize, Shweta is a 75-year-old woman with a history of longstanding diabetes mellitus, stage 3 chronic kidney disease, baseline creatinine is around 1.3 mg/dL. She has history of urinary incontinence. She comes to the hospital with a chief complaint of weakness and falls and she has had some weakness in her right leg. At the time of admission, she was found to have mild hyperkalemia with hyponatremia and uncontrolled blood sugars. Serum creatinine was more than 2.8. She was given IV fluids and the serum creatinine is slightly improved. The potassium was normalized. This consultation was requested for management of the chronic kidney disease as well. PAST MEDICAL HISTORY: Ongoing medical problems include history of obesity, asthma, anxiety, chronic back pain, diabetes mellitus, hypertension, chronic kidney disease stage 3, history of NC, urinary incontinence. FAMILY HISTORY: Noncontributory to this admission. SURGICAL HISTORY: Includes neck surgery, cataract extraction, coronary artery stent placement, cholecystectomy, and colonoscopy. SOCIAL HISTORY: Lives in assisted living. No history of smoking or alcohol abuse at present. History of smoking in the past. MEDICATIONS: At time of admission include gabapentin 600 mg b.i.d., aspirin, albuterol, acetaminophen, lisinopril/hydrochlorothiazide 20/25 one a day, glipizide, fluticasone, albuterol, metformin, amlodipine 2.5 mg. ALLERGIES: SHE IS ALLERGIC TO ATORVASTATIN, MORPHINE, AND ZOLPIDEM. REVIEW OF SYSTEMS: Positive for frequent falls. No headache, nausea, vomiting. No abdominal pain, diarrhea, constipation. No dysuria, urgency. She has incontinence. No fever. No rash. All other systems were reviewed and negative. Family was at the bedside. PHYSICAL EXAMINATION: GENERAL: On examination, Shweta is an elderly woman. She is obese, comfortable, not in any distress. NECK: Supple. No JVD. LUNGS: Air entry equal. No rales. HEART: S1, S2 heard. No gallop or rub. ABDOMEN: Soft, nontender. Bowel sounds heard. NEUROLOGIC: Alert, awake, oriented. No asterixis. EXTREMITIES: No significant edema. No rash. No clubbing. VITAL SIGNS: Blood pressure was 115/78, pulse is 81, temperature 98. LABORATORY DATA: Sodium 135, potassium 4.4, CO2 of 19, BUN 37, creatinine 2.1, blood sugar 589. Urinalysis showed glycosuria with nitrites, no rbc's in blood, no protein by dipstick. Hemoglobin 12.3, platelets 244, WBC 8.7. IMPRESSION: 1. A 75-year-old woman with diabetes mellitus, hypertension, and chronic kidney disease, presents with fall and acute kidney injury with hyperkalemia and uncontrolled diabetes mellitus with hyponatremia. 2. Acute kidney injury is most likely due to hypoperfusion from the use of AIME inhibitors and diuretic and in the setting of hyperglycemia. 3. Hyperkalemia due to acute kidney injury and use of AIME inhibitor. 4. Hyponatremia due to the combination of the use of hydrochlorothiazide, which decreases free water clearance. Also, she may have pseudohyponatremia due to elevated blood sugar as well. RECOMMENDATION: To hold lisinopril/hydrochlorothiazide for the time being, cautiously hydrated with normal saline. Optimize blood sugar. The potassium has normalized. We will monitor the potassium closely along with a total CO2, if the CO2 drops into 18, I would add sodium bicarbonate tablets. Serum sodium is normalized. The dose of gabapentin needs to be reduced. We will be happy to follow along with the team. Alberto Salgado MD BPA/MODL / [id number]
[2021-01-22] MEDS: cefTRIAXone sodium 1 GM in 0.9 % Sodium Chloride 50 ML IV (04:52)
[2021-01-22] MEDS: Acetaminophen 325 MG TABLET 650 MG PO ×2 (04:53→15:35)
[2021-01-22 06:22] LABS: Anion Gap 14 (12-20); Blood Urea Nitrogen 31 mg/dL (9-16); Calcium 9.1 mg/dL (8.4-10.2); Carbon Dioxide 19 mmol/L (22-29); Chloride 110 mmol/L (96-108); Creatinine Clr Calc Pharmacy 35.3; Estimated Glomerular Filt Rate 29; Glucose Random 370 mg/dL (60-115); Potassium 4.9 mmol/L (3.3-5.1); Sodium 138 mmol/L (135-145)
[2021-01-22] MEDS: Insulin Lispro 100 UNIT/ML 3 ML VIAL SUBCUT ×7 (06:29→20:51)
--- NOTE | 2021-01-22 06:29 | MHC.PIE ---
p; lab glucose 370 i; dr smith notified; new order give early dose humalog per ss now e; humalog 10u given per ss. will cont to monitor
[2021-01-22 07:28] LABS: Glucose, Whole Blood 342 mg/dL (60-115)
--- NOTE | 2021-01-22 07:30 | CA_ITS ---
Transthoracic Echocardiogram Patient (Last, First, Middle): Shweta Woodard, Gender: Female Date of : 1945 Age: 75 Procedure Date: 01/22/2021 Procedure Type: Transthoracic Echocardiogram Location: [facility] [place] Height: 157.48 cm Weight: 117.94 kg BSA: 2.14 m2 Heart Rate: bpm BP: 131 / 89 mmHg Surveyor Geophysical Prospecting: RAMAKRISHNA Referring MD: Aldo Mantilla MD Symptoms: new onset a. fib Study Quality: Fair Conclusions: - Normal left ventricular size and systolic function. - Normal right ventricular cavity size and systolic function. Findings Left Ventricle Normal left ventricular size and systolic function. There is mildly increased left ventricular wall thickness. The visually estimated ejection fraction is between 55-60%. There is no evidence of regional wall motion abnormalities. Diastolic function is indeterminate on the basis of available data. Right Ventricle Normal right ventricular cavity size and systolic function. Atria Both atria are normal in size. Aortic Valve There is a normal trileaflet aortic valve. There is no aortic valve stenosis. There is no aortic valve regurgitation. Mitral Valve Normal mitral valve structure and function. There is no mitral valve regurgitation. There is no mitral valve stenosis. Pulmonic Valve The pulmonic valve is likely normal. Tricuspid Valve Normal tricuspid valve structure and function. There is trace tricuspid valve regurgitation. Normal right atrial pressure. There is no evidence of pulmonary hypertension. Great Vessels All visible segments of the aorta are normal in size. The visualized portions of the pulmonary artery and branches are normal. Venous The inferior vena cava is normal in size and collapses greater than 50% with inspiration. Pericardium/Pleural There is no evidence of pericardial effusion. Measurements 2D Linear Measurements IVSd: 1.15 0.6-0.9/0.6-1.0 cm LVIDd: 4.30 3.9-5.3/4.2-5.9 cm LVIDd Index: 2.01 2.4-3.2/2.2-3.1 cm/m2 LVIDs: 3.32 2.0-3.6 cm LVPWd: 1.01 0.7-1.1 cm Ao Root: 3.10 2.1-3.5 cm LA Diam: 3.00 2.7-3.8/3.0-4.0 cm LAIDs Index: 1.40 1.5-2.3 cm/m2 LV Mass: 197.68 67-162/88-224 g LV Mass Index: 92.37 43-95/49-115 g/m2 LVOT Diam: 2.00 3.0+(-)1.3 cm 2D Systolic Function EF 4C: 44.90 >55% EF 2C: 49.20 >55% EF BiP: 45.70 >55% Aortic Valve AoV Pk Davey: 1.32 AoV Mn Davey: 0.96 AoV VTI: 0.20 AoV Pk Grad: 7.00 Aov Mn Grad: 4.00 WILLIE Cont.VTI: 2.56 LVOT LVOT Pk Davey: 0.90 LVOT Mn Davey: 0.59 LVOT VTI: 0.17 LVOT Pk Grad: 3.00 LVOT Mn Grad: 2.00 LVOT Diam: 2.00 LVOT Area: 3.14 Tricuspid Valve TR Pk Davey: 2.09 TR Pk Grad: 17.00 RA Press: 8.00 RVSP: 25.00 Great Vessels Aorta Ao Root-2D: 3.10 2.0-3.7 cm Ao Asc: 3.20 2.1-3.4 cm Updated in Other Vendor System with Status of Final Gilbert Chavarria MD electronically signed on 01/22/2021 10:49:19 PM with status of Final
[2021-01-22] MEDS: Aspirin Enteric Coated 81 MG TABLET.DR PO (09:27)
[2021-01-22] MEDS: Lactated Ringers 1,000 ML 100 ML IVCONT (09:27)
[2021-01-22] MEDS: Gabapentin 600 MG TABLET PO ×2 (09:27→20:50)
[2021-01-22] MEDS: Metoprolol Tartrate 25 MG TABLET PO ×3 (09:27→20:50)
[2021-01-22] MEDS: Insulin Glargine,Hum.rec.anlog 100 UNIT/ML 10 ML VIAL 15 UNIT SUBCUT (09:28)
--- NOTE | 2021-01-22 10:05 | P.PNIM_ITS ---
Subjective Subjective Date of Service: 01/22/21 Interval History: seen and examined this AM reports feeling less weak denies cp or sob, no palp Review of Systems negative except interval history Physical Exam Vital Signs: Vital Signs: Last Vital Signs Temp 98.1 F 01/22/21 07:18 Pulse 102 H 01/22/21 07:18 Resp 18 01/22/21 07:18 BP 145/92 H 01/22/21 07:18 Pulse Ox 98 01/22/21 07:18 BMI result Body Mass Index 47.5 Const: Other: General - no acute distress, appears comfortable Cardiovascular - irr, slightly tachycardic Lungs - normal respiratory effort, clear to auscultation bilaterally, no wheezing Abdomen - soft, nontender, no rebound or guarding Extremities - no edema bilaterally Neuro - awake and alert, no focal deficits Objective Data Active Medications Acetaminophen (Acetaminophen 325 Mg Tablet) 650 mg PO Q6H PRN PRN Reason: Pain, Mild (Pain Scale 1-3) Last Admin: 01/22/21 04:53 Dose: 650 mg Documented by: CASSANDRA Albuterol Sulfate (Albuterol Sulfate 90 Mcg 8 Gm Inhaler) 1 puff INHALE QID PRN PRN Reason: Wheezing Aspirin (Aspirin Enteric Coated 81 Mg Tablet.Dr) 81 mg PO DAILY [facility] Last Admin: 01/22/21 09:27 Dose: 81 mg Documented by: VIDHYA Dextrose (Dextrose 50 % 25 Gm/50 Ml Vial) 25 gm IVPUSH Q15M PRN; Protocol PRN Reason: per Hypoglycemia Standing Ord. Gabapentin (Gabapentin 600 Mg Tablet) 600 mg PO BID [facility] Last Admin: 01/22/21 09:27 Dose: 600 mg Documented by: VIDHYA Glucose (Glucose Gel 15 Gm Gel..Gram.) 15 gm PO Q15M PRN; Protocol PRN Reason: per Hypoglycemia Standing Ord. Lactated Ringer's (Lr) 1,000 mls @ 100 mls/hr IVCONT .Q10H [facility] Last Admin: 01/22/21 09:27 Dose: 100 mls/hr Documented by: VIDHYA Ceftriaxone Sodium 1 gm/ (Sodium Chloride) 50 mls @ 100 mls/hr IV Q24H [facility] Last Infusion: 01/22/21 05:30 Dose: 0 mls/hr Documented by: CASSANDRA Insulin Glargine (Insulin Glargine,Hum.Rec.Anlog 100 Unit/Ml 10 Ml Vial) 15 unit SUBCUT DAILY [facility] Last Admin: 01/22/21 09:28 Dose: 15 unit Documented by: VIDHYA Insulin Human Lispro (Insulin Lispro 100 Unit/Ml 3 Ml Vial) 0 unit SUBCUT QIDACHS [facility]; Protocol Last Admin: 01/22/21 06:29 Dose: 10 unit Documented by: CASSANDRA Insulin Human Lispro (Insulin Lispro 100 Unit/Ml 3 Ml Vial) 4 unit SUBCUT QIDACHS [facility]; Protocol Metoprolol Tartrate (Metoprolol Tartrate 25 Mg Tablet) 25 mg PO Q6H [facility]; P rotocol Last Admin: 01/22/21 09:27 Dose: 25 mg Documented by: VIDHYA Pharmacy Consult (Consult Rx Perform Med Rec) 1 each MISCELLANE ONCE PRN PRN Reason: Consult order Sodium Chloride (0.9 % Sodium Chloride Flush 3 Ml Syringe) 3 ml IVFLUSH QSHIFT [facility] Last Admin: 01/22/21 07:27 Dose: Not Given Documented by: VIDHYA Non-Admin Reason: IV Running Labs CBC & Chem 7: 01/21/21 10:57 01/22/21 05:21 Labs: Laboratory Results - last 24 hr 01/21/21 01/21/21 01/21/21 00:25 05:02 10:57 MCV 87.7 MCH 28.5 MCHC 32.5 RDW 13.7 Plt Count 244 MPV 10.9 Absolute Nucleated RBC 0.000 Nucleated RBC % (auto) 0.0 PT INR APTT Anion Gap Estim Creat Clear Calc Estimated GFR POC Glucose Random Glucose Estimat Average Glucose 266 Hemoglobin A1c % 10.9 Calcium Total Creatine Kinase 138 01/21/21 01/21/21 01/21/21 10:57 11:38 17:53 MCV MCH MCHC RDW Plt Count MPV Absolute Nucleated RBC Nucleated RBC % (auto) PT 11.5 INR 1.0 APTT 39.1 H Anion Gap Estim Creat Clear Calc Estimated GFR POC Glucose 341 H 410 H* Random Glucose Estimat Average Glucose Hemoglobin A1c % Calcium Total Creatine Kinase 01/21/21 01/21/21 01/22/21 21:29 22:08 05:21 MCV MCH MCHC RDW Plt Count MPV Absolute Nucleated RBC Nucleated RBC % (auto) PT INR APTT Anion Gap 14 Estim Creat Clear Calc 35.3 Estimated GFR 29 POC Glucose 413 H* 418 H* Random Glucose 370 H* Estimat Average Glucose Hemoglobin A1c % Calcium 9.1 D Total Creatine Kinase 01/22/21 07:13 MCV MCH MCHC RDW Plt Count MPV Absolute Nucleated RBC Nucleated RBC % (auto) PT INR APTT Anion Gap Estim Creat Clear Calc Estimated GFR POC Glucose 342 H Random Glucose Estimat Average Glucose Hemoglobin A1c % Calcium Total Creatine Kinase Microbiology Microbiology Results: Microbiology 01/21/21 03:59 Blood Culture - Preliminary Blood - Venous No growth after 24 hours. 01/21/21 03:59 Blood Culture - Preliminary Blood - Venous Prelim: GPC Gram Stain only Assessment and Plan (1) LETHA (acute kidney injury): Status: Acute Assessment and Plan: This is a 75 yo F with multiple medical problems who presents to the hospital a fter sustained mechanical falls over the last week. She is found to have LETHA, severe hyperglycemia, new onset a. fib and UTI. She will be admitted for further treatment. 1. Acute Kidney Injury on CKD3 Improving slowly hold IVF today, receive >5L already hold AIME / HCTZ 2. Uncontrolled DM remains uncontrolled with sugars >3-400 range continue sliding scale, add 4 units schduled + lantus 15 units daily on oral at home, but her A1C >10; may need insulin upon d/c 3. New-onset A. Fib rates remain 100+ on monitor metorpolol 25mg qid start oral anti-coagulation -- Eliquis 5mg bid 4. UTI rocephin urine pending blood cx - 1/2 positive (GPC) -- likely contaminant 5. Hyponatremia (pseudo? -- from hyperglycemia) and hyperK resolved 6. CAD - s/p [place] + Stenting continue asa / statin Beta-lanette to be added as above Full Code DVT pptx, Eliquis Quality Stroke Does the patient have a stroke diagnosis?: No VTE Prior VTE?: No VTE Risk Level:: Medical - moderate - high VTE Device Contraindication: Treatment Not Indicated VTE Drug Contraindication: N/A - Med Ordered
--- NOTE | 2021-01-22 10:56 | PM.PNNEP ---
Subjective Subjective Date of Service: 02/13/21 Interval history: Events noted Physical Exam Vital Signs: Vital Signs: Last Vital Signs Temp 98.1 F 01/22/21 07:18 Pulse 102 H 01/22/21 07:18 Resp 18 01/22/21 07:18 BP 145/92 H 01/22/21 07:18 Pulse Ox 98 01/22/21 07:18 BMI result Body Mass Index 47.5 Const: Other: General - no acute distress, appears comfortable Cardiovascular - irr, slightly tachycardic Lungs - normal respiratory effort, clear to auscultation bilaterally, no wheezing Abdomen - soft, nontender, no rebound or guarding Extremities - no edema bilaterally Neuro - awake and alert, no focal deficits Objective Data Labs CBC & Chem 7: 01/21/21 10:57 01/24/21 08:38 Labs: Laboratory Results - last 24 hr 01/21/21 01/21/21 01/21/21 00:25 05:02 10:57 WBC 8.7 RBC 4.32 Hgb 12.3 Hct 37.9 MCV 87.7 MCH 28.5 MCHC 32.5 RDW 13.7 Plt Count 244 MPV 10.9 Absolute Nucleated RBC 0.000 Nucleated RBC % (auto) 0.0 PT INR APTT Sodium Potassium Chloride Carbon Dioxide Anion Gap BUN Creatinine Estim Creat Clear Calc Estimated GFR POC Glucose Random Glucose Estimat Average Glucose 266 Hemoglobin A1c % 10.9 Calcium Total Creatine Kinase 138 01/21/21 01/21/21 01/21/21 10:57 11:38 17:53 WBC RBC Hgb Hct MCV MCH MCHC RDW Plt Count MPV Absolute Nucleated RBC Nucleated RBC % (auto) PT 11.5 INR 1.0 APTT 39.1 H Sodium Potassium Chloride Carbon Dioxide Anion Gap BUN Creatinine Estim Creat Clear Calc Estimated GFR POC Glucose 341 H 410 H* Random Glucose Estimat Average Glucose Hemoglobin A1c % Calcium Total Creatine Kinase 01/21/21 01/21/21 01/22/21 21:29 22:08 05:21 WBC RBC Hgb Hct MCV MCH MCHC RDW Plt Count MPV Absolute Nucleated RBC Nucleated RBC % (auto) PT INR APTT Sodium 138 Potassium 4.9 Chloride 110 H Carbon Dioxide 19 L Anion Gap 14 BUN 31 H Creatinine 1.73 H Estim Creat Clear Calc 35.3 Estimated GFR 29 POC Glucose 413 H* 418 H* Random Glucose 370 H* Estimat Average Glucose Hemoglobin A1c % Calcium 9.1 D Total Creatine Kinase 01/22/21 07:13 WBC RBC Hgb Hct MCV MCH MCHC RDW Plt Count MPV Absolute Nucleated RBC Nucleated RBC % (auto) PT INR APTT Sodium Potassium Chloride Carbon Dioxide Anion Gap BUN Creatinine Estim Creat Clear Calc Estimated GFR POC Glucose 342 H Random Glucose Estimat Average Glucose Hemoglobin A1c % Calcium Total Creatine Kinase Microbiology Microbiology Results: Microbiology 01/21/21 Unknown Urine Catheterized - [facility] Catheter Urine Culture - Preliminary Gram negative tanisha 01/21/21 03:59 Blood - Venous Blood Culture - Preliminary No growth after 24 hours. 01/21/21 03:59 Blood - Venous Blood Culture - Preliminary Prelim: GPC Gram Stain only Procedures Date of Service Date of Service: 01/22/21 Assessment & Plan Assessment and plan (1) LETHA (acute kidney injury): Status: Acute Assessment and Plan: LETHA superimposed on CKD Cr is trending down Keep I > O Optimize pl Glucose Pseudohyponatremia- resolving Continue to hold HCTZ K normalized Mild acidosis If tCO2 < 17, would add PO Bicarb Time Spent With Patient Time: Total time spent is greater than 50% in coordination of care (as documented) at patient's floor/unit and/or counseling patient: Time with patient: 15 - 24 minutes Progress Note: Quality Stroke Does the patient have a stroke diagnosis?: No
[2021-01-22 11:14] LABS: Glucose, Whole Blood 362 mg/dL (60-115)
[2021-01-22] MEDS: Apixaban 5 MG TABLET PO ×2 (11:48→20:50)
--- NOTE | 2021-01-22 13:49 | MHC.CLN ---
NUTRITION INCREASED CALORIES OF DIET TO 1500 KCAL. DIET=DIABETIC 1500 KCAL.
--- NOTE | 2021-01-22 14:02 | MHC.CM.PN ---
nurse care connector note electronic medical record reviewed. met with patient and her daughter/hcp herminia morirs [phone] she speaks Lebanese and her mother only speaks french , imm was given 01/21/21 while in the er health care proxy on file patient lives home alone .but family lives close by and takes turns visiting her throughout the day , she is active with [facility] 27 hours am weekly/19 hours weely nightime. patient has commode and wheelchair bound/electric wheelchair. she lives in handicap apartement. 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
[2021-01-22] MEDS: 0.9 % Sodium Chloride Flush 3 ML SYRINGE IVFLUSH ×2 (15:32→20:51)
[2021-01-22 15:59] LABS: Glucose, Whole Blood 244 mg/dL (60-115)
[2021-01-22 20:51] LABS: Glucose, Whole Blood 220 mg/dL (60-115)
[2021-01-23] VITALS (10 sets, daily range): BP systolic 119–174; BP diastolic 67–102; PULSE 66–82; RESP 16–18; TEMP 36–36.8; O2SAT 96–98
[2021-01-23] MEDS: Metoprolol Tartrate 25 MG TABLET PO ×4 (01:22→20:36)
[2021-01-23 01:32] LABS: Glucose, Whole Blood 208 mg/dL (60-115)
[2021-01-23] MEDS: cefTRIAXone sodium 1 GM in 0.9 % Sodium Chloride 50 ML IV (05:33)
[2021-01-23 07:56] LABS: Glucose, Whole Blood 258 mg/dL (60-115)
[2021-01-23] MEDS: Insulin Lispro 100 UNIT/ML 3 ML VIAL SUBCUT ×8 (08:23→20:36)
[2021-01-23] MEDS: Aspirin Enteric Coated 81 MG TABLET.DR PO (08:24)
[2021-01-23] MEDS: Gabapentin 600 MG TABLET PO ×2 (08:24→20:37)
[2021-01-23] MEDS: Apixaban 5 MG TABLET PO ×2 (08:24→20:37)
[2021-01-23] MEDS: polyethylene glycoL 3350 17 GM POWD.PACK PO (08:24)
[2021-01-23] MEDS: Insulin Glargine,Hum.rec.anlog 100 UNIT/ML 10 ML VIAL 15 UNIT SUBCUT (08:24)
[2021-01-23] MEDS: 0.9 % Sodium Chloride Flush 3 ML SYRINGE IVFLUSH ×3 (08:35→20:37)
--- NOTE | 2021-01-23 09:31 | HO.PM.IMPN ---
Subjective Subjective Date of Service: 01/23/21 Interval History: F/u LETHA, UTI--feels better Review of Systems no fever, no chills, no dysuria Physical Exam Vital Signs: Vital Signs: Last Vital Signs Temp 98.2 F 01/23/21 07:20 Pulse 71 01/23/21 07:20 Resp 18 01/23/21 07:20 BP 120/67 01/23/21 07:20 Pulse Ox 97 01/23/21 07:20 BMI result Body Mass Index 47.5 Const: Other: General: AO X 3, no acute distress Resp: CTA bilateral CVS: S1,S2,RRR GI: +BS, NT, no distention Skin: No rash Neuro: motor grossly intact Psych: appropriate affect Objective Data Active Medications Acetaminophen (Acetaminophen 325 Mg Tablet) 650 mg PO Q6H PRN PRN Reason: Pain, Mild (Pain Scale 1-3) Last Admin: 01/22/21 15:35 Dose: 650 mg Documented by: VIDHYA Albuterol Sulfate (Albuterol Sulfate 90 Mcg 8 Gm Inhaler) 1 puff INHALE QID PRN PRN Reason: Wheezing Apixaban (Apixaban 5 Mg Tablet) 5 mg PO BID [facility] Last Admin: 01/23/21 08:24 Dose: 5 mg Documented by: LASHAY Aspirin (Aspirin Enteric Coated 81 Mg Tablet.) 81 mg PO DAILY [facility] Last Admin: 01/23/21 08:24 Dose: 81 mg Documented by: LASHAY Dextrose (Dextrose 50 % 25 Gm/50 Ml Vial) 25 gm IVPUSH Q15M PRN; Protocol PRN Reason: per Hypoglycemia Standing Ord. Gabapentin (Gabapentin 600 Mg Tablet) 600 mg PO BID [facility] Last Admin: 01/23/21 08:24 Dose: 600 mg Documented by: LASHAY Glucose (Glucose Gel 15 Gm Gel..Gram.) 15 gm PO Q15M PRN; Protocol PRN Reason: per Hypoglycemia Standing Ord. Ceftriaxone Sodium 1 gm/ (Sodium Chloride) 50 mls @ 100 mls/hr IV Q24H [facility] Last Infusion: 01/23/21 06:22 Dose: 0 mls/hr Documented by: CHARLES Insulin Glargine (Insulin Glargine,Hum.Rec.Anlog 100 Unit/Ml 10 Ml Vial) 15 unit SUBCUT DAILY [facility] Last Admin: 01/23/21 08:24 Dose: 15 unit Documented by: LASHAY Insulin Human Lispro (Insulin Lispro 100 Unit/Ml 3 Ml Vial) 0 unit SUBCUT QIDACHS [facility]; Protocol Last Admin: 01/23/21 08:24 Dose: 6 unit Documented by: LASHAY Insulin Human Lispro (Insulin Lispro 100 Unit/Ml 3 Ml Vial) 4 unit SUBCUT QIDACHS [facility]; Protocol Last Admin: 01/23/21 08:23 Dose: 4 unit Documented by: LASHAY Metoprolol Tartrate (Metoprolol Tartrate 25 Mg Tablet) 25 mg PO Q6H [facility]; Protocol Last Admin: 01/23/21 08:24 Dose: 25 mg Documented by: LASHAY Pharmacy Consult (Consult Rx Perform Med Rec) 1 each MISCELLANE ONCE PRN PRN Reason: Consult order Polyethylene Glycol (Polyethylene Glycol 3350 17 Gm Powd.Pack) 17 gm PO DAILY [facility] Last Admin: 01/23/21 08:24 Dose: 17 gm Documented by: LASHAY Sodium Chloride (0.9 % Sodium Chloride Flush 3 Ml Syringe) 3 ml IVFLUSH QSHIFT [facility] Last Admin: 01/23/21 08:35 Dose: 3 ml Documented by: LASHAY Labs CBC & Chem 7: 01/21/21 10:57 01/22/21 05:21 Labs: Laboratory Results - last 24 hr 01/22/21 01/22/21 01/22/21 11:00 15:26 20:44 POC Glucose 362 H* 244 H 220 H 01/23/21 01/23/21 01:26 07:18 POC Glucose 208 H 258 H Microbiology Microbiology Results: Microbiology 01/21/21 Unknown Urine Culture - Preliminary Urine Catheterized - [facility] Catheter Klebsiella pneumoniae 01/21/21 03:59 Blood Culture - Preliminary Blood - Venous No growth after 48 hours. Assessment and Plan (1) Atrial flutter: Status: Acute (2) LETHA (acute kidney injury): Status: Acute (3) Multiple falls: Status: Acute Assessment and Plan: 75 yo F with multiple medical problems who presents to the hospital after sustained mechanical falls over the last week. She is found to have LETHA, severe hyperglycemia, new onset a. fib and UTI. She will be admitted for further treatment. 1. Acute Kidney Injury on CKD3 Improving slowly, check labs today 2. Uncontrolled DM--better. remains uncontrolled with sugars >3-400 range continue sliding scale, add 4 units schduled + lantus 15 units daily on oral at home, but her A1C >10; may need insulin upon d/c 3. New-onset A. Fib--rate is controlled now. continue Metoprolol, and Eliquis for stroke prevention 4. UTI--culture = Klebsiela P., no sensitivity blood cx - 1/2 positive (GPC) -- likely contaminant 5. Hyponatremia (pseudo? -- from hyperglycemia) and hyperK resolved 6. CAD - s/p [place] + Stenting continue asa / statin Beta-lanette to be added as above Full Code DVT pptx, Eliquis possibly home later today Quality Stroke Does the patient have a stroke diagnosis?: No VTE Prior VTE?: No VTE Risk Level:: Medical - moderate - high VTE Device Contraindication: Treatment Not Indicated VTE Drug Contraindication: N/A - Med Ordered
--- NOTE | 2021-01-23 10:49 | PM.PNNEP ---
Subjective Subjective Date of Service: 02/16/21 Interval history: Events noted Physical Exam Vital Signs: Vital Signs: Last Vital Signs Temp 98.2 F 01/23/21 07:20 Pulse 71 01/23/21 07:20 Resp 18 01/23/21 07:20 BP 120/67 01/23/21 07:20 Pulse Ox 97 01/23/21 07:20 BMI result Body Mass Index 47.5 Const: Other: General - no acute distress, appears comfortable Cardiovascular - irr, slightly tachycardic Lungs - normal respiratory effort, clear to auscultation bilaterally, no wheezing Abdomen - soft, nontender, no rebound or guarding Extremities - no edema bilaterally Neuro - awake and alert, no focal deficits Objective Data Labs CBC & Chem 7: 01/21/21 10:57 01/24/21 08:38 Labs: Laboratory Results - last 24 hr 01/22/21 01/22/21 01/22/21 11:00 15:26 20:44 POC Glucose 362 H* 244 H 220 H 01/23/21 01/23/21 01:26 07:18 POC Glucose 208 H 258 H Microbiology Microbiology Results: Microbiology 01/21/21 Unknown Urine Catheterized - [facility] Catheter Urine Culture - Preliminary Klebsiella pneumoniae 01/21/21 03:59 Blood - Venous Blood Culture - Preliminary No growth after 48 hours. 01/21/21 03:59 Blood - Venous Blood Culture - Preliminary Prelim: GPC Gram Stain only Procedures Date of Service Date of Service: 01/23/21 Assessment & Plan Assessment and plan (1) LETHA (acute kidney injury): Status: Acute Assessment and Plan: LETHA superimposed on CKD Cr is trending down Keep I > O Optimize pl Glucose Pseudohyponatremia- resolving Continue to hold HCTZ K normalized Mild acidosis If tCO2 < 17, would add PO Bicarb OK to DC Shall arrange for OP follow up Time Spent With Patient Time: Total time spent is greater than 50% in coordination of care (as documented) at patient's floor/unit and/or counseling patient: Time with patient: 15 - 24 minutes Progress Note: Quality Stroke Does the patient have a stroke diagnosis?: No
[2021-01-23 11:31] LABS: Anion Gap 13 (12-20); Blood Urea Nitrogen 31 mg/dL (9-16); Calcium 8.9 mg/dL (8.4-10.2); Carbon Dioxide 22 mmol/L (22-29); Chloride 109 mmol/L (96-108); Creatinine Clr Calc Pharmacy 37.2; Estimated Glomerular Filt Rate 31; Glucose Random 331 mg/dL (60-115); Potassium 4.6 mmol/L (3.3-5.1); Sodium 139 mmol/L (135-145)
[2021-01-23 11:48] LABS: Glucose, Whole Blood 305 mg/dL (60-115)
[2021-01-23 16:05] LABS: Glucose, Whole Blood 242 mg/dL (60-115)
[2021-01-23 20:09] LABS: Glucose, Whole Blood 275 mg/dL (60-115)
[2021-01-24] VITALS (7 sets, daily range): BP systolic 119–169; BP diastolic 73–100; PULSE 57–80; RESP 16–18; TEMP 36.1–36.6; O2SAT 96–99
[2021-01-24] MEDS: Metoprolol Tartrate 25 MG TABLET PO ×3 (01:58→20:36)
[2021-01-24] MEDS: cefTRIAXone sodium 1 GM in 0.9 % Sodium Chloride 50 ML IV (05:39)
[2021-01-24 07:47] LABS: Glucose, Whole Blood 203 mg/dL (60-115)
[2021-01-24] MEDS: Insulin Glargine,Hum.rec.anlog 100 UNIT/ML 10 ML VIAL 15 UNIT SUBCUT (08:21)
[2021-01-24] MEDS: Aspirin Enteric Coated 81 MG TABLET.DR PO (08:22)
[2021-01-24] MEDS: Insulin Lispro 100 UNIT/ML 3 ML VIAL SUBCUT ×8 (08:22→20:50)
[2021-01-24] MEDS: Apixaban 5 MG TABLET PO ×2 (08:25→20:37)
[2021-01-24] MEDS: 0.9 % Sodium Chloride Flush 3 ML SYRINGE IVFLUSH ×3 (08:26→20:38)
[2021-01-24] MEDS: polyethylene glycoL 3350 17 GM POWD.PACK PO (08:26)
[2021-01-24 09:05] LABS: Anion Gap 14 (12-20); Blood Urea Nitrogen 32 mg/dL (9-16); Calcium 9.1 mg/dL (8.4-10.2); Carbon Dioxide 23 mmol/L (22-29); Chloride 108 mmol/L (96-108); Creatinine Clr Calc Pharmacy 39.6; Estimated Glomerular Filt Rate 33; Glucose Random 226 mg/dL (60-115); Potassium 4.8 mmol/L (3.3-5.1); Sodium 140 mmol/L (135-145)
--- NOTE | 2021-01-24 09:07 | P.PNIM_ITS ---
Subjective Subjective Date of Service: 01/24/21 Interval History: Seen in f/u for UTI, reports not feeling well, Urine culture is showing ESBL + Klebsiela Review of Systems no fever, no chills, no dysuria Physical Exam Vital Signs: Vital Signs: Last Vital Signs Temp 97.9 F 01/24/21 07:21 Pulse 73 01/24/21 07:21 Resp 18 01/24/21 07:21 BP 169/78 H 01/24/21 07:21 Pulse Ox 96 01/24/21 07:21 BMI result Body Mass Index 47.5 Const: Other: General - no acute distress, appears comfortable Cardiovascular - irr, slightly tachycardic Lungs - normal respiratory effort, clear to auscultation bilaterally, no wheezing Abdomen - soft, nontender, no rebound or guarding Extremities - no edema bilaterally Neuro - awake and alert, no focal deficits Objective Data Active Medications Acetaminophen (Acetaminophen 325 Mg Tablet) 650 mg PO Q6H PRN PRN Reason: Pain, Mild (Pain Scale 1-3) Last Admin: 01/22/21 15:35 Dose: 650 mg Documented by: VIDHYA Albuterol Sulfate (Albuterol Sulfate 90 Mcg 8 Gm Inhaler) 1 puff INHALE QID PRN PRN Reason: Wheezing Apixaban (Apixaban 5 Mg Tablet) [address] [facility] Last Admin: 01/24/21 08:25 Dose: 5 mg Documented by: LASHAY Aspirin (Aspirin Enteric Coated 81 Mg Tablet.) [address] [facility] Last Admin: 01/24/21 08:22 Dose: 81 mg Documented by: LASHAY Dextrose (Dextrose 50 % 25 Gm/50 Ml Vial) 25 gm IVPUSH Q15M PRN; Protocol PRN Reason: per Hypoglycemia Standing Ord. Gabapentin (Gabapentin 600 Mg Tablet) [address] [facility] Last Admin: 01/23/21 20:37 Dose: 600 mg Documented by: CHARLES Glucose (Glucose Gel 15 Gm Gel..Gram.) 15 gm PO Q15M PRN; Protocol PRN Reason: per Hypoglycemia Standing Ord. Ceftriaxone Sodium 1 gm/ (Sodium Chloride) 50 mls @ 100 mls/hr IV Q24H [facility] Last Infusion: 01/24/21 06:11 Dose: 0 mls/hr Documented by: CHARLES Insulin Glargine (Insulin Glargine,Hum.Rec.Anlog 100 Unit/Ml 10 Ml Vial) [address] [facility] Last Admin: 01/24/21 08:21 Dose: 15 unit Documented by: LASHAY Insulin Human Lispro (Insulin Lispro 100 Unit/Ml 3 Ml Vial) [address] [facility]; Protocol Last Admin: 01/24/21 08:22 Dose: 4 unit Documented by: LASHAY Insulin Human Lispro (Insulin Lispro 100 Unit/Ml 3 Ml Vial) [address] [facility]; Protocol Last Admin: 01/24/21 08:23 Dose: 4 unit Documented by: LASHAY Metoprolol Tartrate (Metoprolol Tartrate 25 Mg Tablet) [address] [facility]; Protocol Last Admin: 01/24/21 08:25 Dose: 25 mg Documented by: LASHAY Pharmacy Consult (Consult Rx Perform Med Rec) 1 each MISCELLANE ONCE PRN PRN Reason: Consult order Polyethylene Glycol (Polyethylene Glycol 3350 17 Gm Powd.Pack) [address] [facility] Last Admin: 01/24/21 08:26 Dose: 17 gm Documented by: LASHAY Sodium Chloride (0.9 % Sodium Chloride Flush 3 Ml Syringe) [address] [facility] Last Admin: 01/24/21 08:26 Dose: 3 ml Documented by: LASHAY Labs CBC & Chem 7: 01/21/21 10:57 01/24/21 08:38 Labs: Laboratory Results - last 24 hr 01/23/21 01/23/21 01/23/21 11:00 11:17 15:42 Anion Gap 13 Estim Creat Clear Calc 37.2 Estimated GFR 31 POC Glucose 305 H 242 H Random Glucose 331 H Calcium 8.9 01/23/21 01/24/21 01/24/21 20:01 07:18 08:38 Anion Gap 14 Estim Creat Clear Calc 39.6 Estimated GFR 33 POC Glucose 275 H 203 H Random Glucose 226 H Calcium 9.1 Microbiology Microbiology Results: Microbiology 01/21/21 Unknown Urine Culture - Final Urine Catheterized - [facility] Catheter Klebsiella pneumoniae 01/21/21 03:59 Blood Culture - Final Blood - Venous Coag negative Staphylococcus 01/21/21 03:59 Blood Culture - Preliminary Blood - Venous No growth after 48 hours. Assessment and Plan (1) Atrial flutter: Status: Acute (2) LETHA (acute kidney injury): Status: Acute (3) Multiple falls: Status: Acute Assessment and Plan: 75 yo F with multiple medical problems who presents to the hospital after sustained mechanical falls over the last week. She is found to have LETHA, severe hyperglycemia, new onset a. fib and UTI. She will be admitted for further treatment. 1. Acute Kidney Injury on CKD3 creatinine continue to improve 2. Uncontrolled DM--better. remains uncontrolled with sugars >3-400 range continue sliding scale, add 4 units schduled + lantus 15 units daily on oral at home, but her A1C >10; may need insulin upon d/c 3. New-onset A. Fib--rate is controlled now. continue Metoprolol, and Eliquis for stroke prevention 4. UTI--culture = Klebsiela P., ESBL + -Change Abx to Ertapenem blood cx - 1/2 positive (GPC) coag neg staph-- likely contaminant 5. Hyponatremia (pseudo? -- from hyperglycemia) and hyperK resolved 6. CAD - s/p [place] + Stenting continue asa / statin Beta-lanette to be added as above Full Code DVT pptx, Eliquis possibly home later today Quality Stroke Does the patient have a stroke diagnosis?: No VTE Prior VTE?: No VTE Risk Level:: Medical - moderate - high VTE Device Contraindication: Treatment Not Indicated VTE Drug Contraindication: N/A - Med Ordered
[2021-01-24] MEDS: Gabapentin 600 MG TABLET PO ×2 (09:17→20:37)
--- NOTE | 2021-01-24 11:40 | PM.PNNEP ---
Subjective Subjective Date of Service: 01/24/21 Interval history: Seen in f/u for UTI, reports not feeling well, Urine culture is showing ESBL + Klebsiela Physical Exam Vital Signs: Vital Signs: Last Vital Signs Temp 97.7 F 01/24/21 11:26 Pulse 57 01/24/21 11:26 Resp 18 01/24/21 11:26 BP 119/76 01/24/21 11:26 Pulse Ox 99 01/24/21 11:26 BMI result Body Mass Index 47.5 Const: Other: General - no acute distress, appears comfortable Cardiovascular - irr, slightly tachycardic Lungs - normal respiratory effort, clear to auscultation bilaterally, no wheezing Abdomen - soft, nontender, no rebound or guarding Extremities - no edema bilaterally Neuro - awake and alert, no focal deficits Objective Data Labs CBC & Chem 7: 01/21/21 10:57 01/24/21 08:38 Labs: Laboratory Results - last 24 hr 01/23/21 01/23/21 01/23/21 11:17 15:42 20:01 Sodium Potassium Chloride Carbon Dioxide Anion Gap BUN Creatinine Estim Creat Clear Calc Estimated GFR POC Glucose 305 H 242 H 275 H Random Glucose Calcium 01/24/21 01/24/21 07:18 08:38 Sodium 140 Potassium 4.8 Chloride 108 Carbon Dioxide 23 Anion Gap 14 BUN 32 H Creatinine 1.54 H Estim Creat Clear Calc 39.6 Estimated GFR 33 POC Glucose 203 H Random Glucose 226 H Calcium 9.1 Microbiology Microbiology Results: Microbiology 01/21/21 Unknown Urine Catheterized - [facility] Catheter Urine Culture - Final Klebsiella pneumoniae 01/21/21 03:59 Blood - Venous Blood Culture - Final Coag negative Staphylococcus 01/21/21 03:59 Blood - Venous Blood Culture - Preliminary No growth after 48 hours. Procedures Date of Service Date of Service: 01/24/21 Assessment & Plan Assessment and plan (1) LETHA (acute kidney injury): Status: Acute Assessment and Plan: LETHA superimposed on CKD Cr is trending down Keep I > O Optimize pl Glucose Pseudohyponatremia- resolved Continue to hold HCTZ K normalized Mild acidosis - resolved OK to DC Shall arrange for OP follow up Time Spent With Patient Time: Total time spent is greater than 50% in coordination of care (as documented) at patient's floor/unit and/or counseling patient: Progress Note: Quality Stroke Does the patient have a stroke diagnosis?: No
[2021-01-24 11:53] LABS: Glucose, Whole Blood 217 mg/dL (60-115)
--- NOTE | 2021-01-24 14:13 | HE.PHANOTE ---
approved continuing doses of meropenem. Jennifer Corado PharmD BCPS
[2021-01-24 16:09] LABS: Glucose, Whole Blood 171 mg/dL (60-115)
[2021-01-24 20:28] LABS: Glucose, Whole Blood 199 mg/dL (60-115)
[2021-01-24] MEDS: Acetaminophen 325 MG TABLET 650 MG PO (20:36)
[2021-01-25] VITALS (9 sets, daily range): BP systolic 115–179; BP diastolic 66–86; PULSE 58–82; RESP 17–20; TEMP 36.3–37; O2SAT 96–100
[2021-01-25 07:29] LABS: Glucose, Whole Blood 191 mg/dL (60-115)
[2021-01-25] MEDS: Insulin Lispro 100 UNIT/ML 3 ML VIAL SUBCUT ×7 (07:43→21:21)
[2021-01-25] MEDS: Aspirin Enteric Coated 81 MG TABLET.DR PO (07:43)
[2021-01-25] MEDS: 0.9 % Sodium Chloride Flush 3 ML SYRINGE IVFLUSH ×2 (07:44→15:41)
[2021-01-25] MEDS: Metoprolol Tartrate 25 MG TABLET PO ×3 (07:44→21:20)
[2021-01-25] MEDS: Apixaban 5 MG TABLET PO ×2 (07:44→21:20)
[2021-01-25] MEDS: Gabapentin 600 MG TABLET PO ×2 (07:44→21:20)
[2021-01-25] MEDS: lisinopriL 20 MG TABLET PO (08:35)
[2021-01-25] MEDS: hydroCHLOROthiazide 25 MG TABLET PO (08:35)
[2021-01-25] MEDS: glipiZIDE XL 2.5 MG TAB.ER.24 PO (08:35)
[2021-01-25] MEDS: Insulin Glargine,Hum.rec.anlog 100 UNIT/ML 10 ML VIAL 15 UNIT SUBCUT (08:36)
[2021-01-25] MEDS: FLUoxetine HCl 20 MG CAPSULE PO (08:36)
--- NOTE | 2021-01-25 10:09 | P.PNIM_ITS ---
Subjective Subjective Date of Service: 01/25/21 Interval History: Seen in f/u for ESBL +, resistant UTI, feels better Review of Systems no fever, no chills, no dysuria Physical Exam Vital Signs: Vital Signs: Last Vital Signs Temp 97.8 F 01/25/21 07:12 Pulse 82 01/25/21 07:12 Resp 20 01/25/21 07:12 BP 172/86 H 01/25/21 07:12 Pulse Ox 96 01/25/21 07:12 BMI result Body Mass Index 47.5 Const: Other: General - no acute distress, appears comfortable Cardiovascular - irr, slightly tachycardic Lungs - normal respiratory effort, clear to auscultation bilaterally, no wheezing Abdomen - soft, nontender, no rebound or guarding Extremities - no edema bilaterally Neuro - awake and alert, no focal deficits Objective Data Active Medications Acetaminophen (Acetaminophen 325 Mg Tablet) 650 mg PO Q6H PRN PRN Reason: Pain, Mild (Pain Scale 1-3) Last Admin: 01/24/21 20:36 Dose: 650 mg Documented by: CHARLES Albuterol Sulfate (Albuterol Sulfate 90 Mcg 8 Gm Inhaler) 1 puff INHALE QID PRN PRN Reason: Wheezing Apixaban (Apixaban 5 Mg Tablet) 5 mg PO BID [facility] Last Admin: 01/25/21 07:44 Dose: 5 mg Documented by: VIDHYA Aspirin (Aspirin Enteric Coated 81 Mg Tablet.Dr) 81 mg PO DAILY [facility] Last Admin: 01/25/21 07:43 Dose: 81 mg Documented by: VIDHYA Dextrose (Dextrose 50 % 25 Gm/50 Ml Vial) 25 gm IVPUSH Q15M PRN; Protocol PRN Reason: per Hypoglycemia Standing Ord. Fluoxetine HCl (Fluoxetine Hcl 20 Mg Capsule) 20 mg PO DAILY [facility] Last Admin: 01/25/21 08:36 Dose: 20 mg Documented by: JOSE Fluticasone Propionate (Fluticasone Propionate 100 Mcg Blst.W.Dev) 1 puff INHALE RBID [facility] Gabapentin (Gabapentin 600 Mg Tablet) 600 mg PO BID [facility] Last Admin: 01/25/21 07:44 Dose: 600 mg Documented by: VIDHYA Glipizide (Glipizide Xl 2.5 Mg Tab.Er.24) 2.5 mg PO DAILY [facility] Last Admin: 01/25/21 08:35 Dose: 2.5 mg Documented by: JOSE Glucose (Glucose Gel 15 Gm Gel..Gram.) 15 gm PO Q15M PRN; Protocol PRN Reason: per Hypoglycemia Standing Ord. Hydrochlorothiazide (Hydrochlorothiazide 25 Mg Tablet) 25 mg PO DAILY [facility] Last Admin: 01/25/21 08:35 Dose: 25 mg Documented by: JOSE Meropenem 1 gm/ Sodium (Chloride) 100 mls @ 100 mls/hr IV Q12H [facility] Last Infusion: 01/24/21 23:50 Dose: 0 mls/hr Documented by: ODRISMalka Insulin Glargine (Insulin Glargine,Hum.Rec.Anlog 100 Unit/Ml 10 Ml Vial) 15 unit SUBCUT DAILY [facility] Last Admin: 01/25/21 08:36 Dose: 15 unit Documented by: JOSE Insulin Human Lispro (Insulin Lispro 100 Unit/Ml 3 Ml Vial) 0 unit SUBCUT QIDAS [facility]; Protocol Last Admin: 01/25/21 07:43 Dose: 2 unit Documented by: VIDHYA Insulin Human Lispro (Insulin Lispro 100 Unit/Ml 3 Ml Vial) 4 unit SUBCUT QIDAS [facility]; Protocol Last Admin: 01/25/21 07:43 Dose: 4 unit Documented by: VIDHYA Lisinopril (Lisinopril 20 Mg Tablet) 20 mg PO DAILY [facility] Last Admin: 01/25/21 08:35 Dose: 20 mg Documented by: JOSE Metoprolol Tartrate (Metoprolol Tartrate 25 Mg Tablet) 25 mg PO Q6H [facility]; Protocol Last Admin: 01/25/21 07:44 Dose: 25 mg Documented by: VIDHYA Pharmacy Consult (Consult Rx Perform Med Rec) 1 each MISCELLANE ONCE PRN PRN Reason: Consult order Polyethylene Glycol (Polyethylene Glycol 3350 17 Gm Powd.Pack) 17 gm PO DAILY [facility] Last Admin: 01/24/21 08:26 Dose: 17 gm Documented by: LASHAY Sodium Chloride (0.9 % Sodium Chloride Flush 3 Ml Syringe) 3 ml IVFLUSH QSHIFT [facility] Last Admin: 01/25/21 07:44 Dose: 3 ml Documented by: VIDHYA Labs CBC & Chem 7: 01/21/21 10:57 01/24/21 08:38 Labs: Laboratory Results - last 24 hr 01/24/21 01/24/21 01/24/21 11:25 16:02 20:20 POC Glucose 217 H 171 H 199 H 01/25/21 07:10 POC Glucose 191 H Microbiology Microbiology Results: Microbiology 01/21/21 Unknown Urine Culture - Final Urine Catheterized - [facility] Catheter Klebsiella pneumoniae Assessment and Plan (1) Multiple falls: Status: Acute Assessment and Plan: 75 yo F with multiple medical problems who presents to the hospital after sustained mechanical falls over the last week. She is found to have LETHA, severe hyperglycemia, new onset a. fib and UTI. She will be admitted for further treatment. 1. Acute Kidney Injury on CKD3 creatinine continue to improve, Cr back to baseline 2.Diabetes--better controlled FBS 191, increase Lantus to 20, SSI and 4 unts of pre meal insulin A1C > 10, probably need insulin at home if can administer 3. New-onset A. Fib--rate is controlled now. continue Metoprolol, and Eliquis for stroke prevention 4. UTI--culture = Klebsiela P., ESBL + -Change Abx to Meropenem, ID consult blood cx - 1/2 positive (GPC) coag neg staph-- likely contaminant 5. Hyponatremia (pseudo? -- from hyperglycemia) and hyperK resolved 6. CAD - s/p AL + Stenting continue asa / statin Beta-lanette to be added as above Full Code DVT pptx, Eliquis Dispo: pending ID advise on Abx choice and duration and might need a mid line or picc line Quality Stroke Does the patient have a stroke diagnosis?: No VTE Prior VTE?: No VTE Risk Level:: Medical - moderate - high VTE Device Contraindication: Treatment Not Indicated VTE Drug Contraindication: N/A - Med Ordered
[2021-01-25 11:36] LABS: Glucose, Whole Blood 233 mg/dL (60-115)
--- NOTE | 2021-01-25 11:40 | MHC.CM.PN ---
Addendum entered by Harriett Bhagat RN 01/25/21 15:07: CM MET W/PT AND SPOKE W/DTR EDY MARCUS [phone] OVER FACE TIME, PT AND DTR HAD NO PREFERENCES FOR [facility] OR [facility] AND ARE AGREEABLE TO REFERRALS, [facility] ALREADY FOLLOWING AND REFERRAL SENT TO [facility], REPEAT BC'S TO BE DRAWN TODAY AND ANTIC PICC/MID LINE TO BE PLACED MONDAY AFTERNOON AT [facility]. CM WILL CONT TO FOLLOW D/C NEEDS. Original Note: EMR REVIEWED, PER HOSPITALIST PT WILL HAVE NEED ID CONSULT AND IV ABX AT HOME, PT DOES WANT TO D/C HOME AND NOT TO STR.
[2021-01-25 16:46] LABS: Glucose, Whole Blood 136 mg/dL (60-115)
--- NOTE | 2021-01-25 17:03 | HO.MIDLINE_ITS ---
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 Using ultrasound guidance, [RIGHT BASILIC] vein access was obtained ON FIRST ATTEMPT BY THIS RN. A SINGLE LUMEN, NON-PASV ([id number]) MIDLINE WAS POSITIONED. The procedure was performed in [RM. 272]. Ultrasound was used to document vein patency and for needle entry. A formal ultrasound picture was recorded. [employer] has released the line for use and it is currently dressed with a StatLock, Tegaderm, and CHG disc. Verification has been performed for blood return and line patency. Arm Circumference: [37CM] Equipment: [Dymant POWERGLIDE PRO MIDLINE] Catheter Type: [SINGLE LUMEN,NON-PASV, ([id number]] Lot #: [[id number]]
--- NOTE | 2021-01-25 17:03 | PM.PNNEP ---
Subjective Subjective Date of Service: 01/25/21 Interval history: Seen in f/u for ESBL +, LETHA on CKD , resistant UTI; Feels improved Physical Exam Vital Signs: Vital Signs: Last Vital Signs Temp 98.2 F 01/25/21 15:38 Pulse 64 01/25/21 15:38 Resp 18 01/25/21 15:38 BP 115/77 01/25/21 15:38 Pulse Ox 97 01/25/21 15:38 BMI result Body Mass Index 47.5 Const: General: comfortable Eyes: EOM: EOMs intact bilaterally Neck: Neck: Yes supple Resp: Auscultation: diminished lung sounds Cardio: Jugular venous distension: no JVD GI: Palpation (GI): Soft to palpation Neuro: General: moves all extremities Objective Data Labs CBC & Chem 7: 01/21/21 10:57 01/24/21 08:38 Labs: Laboratory Results - last 24 hr 01/24/21 01/25/21 01/25/21 20:20 07:10 11:15 POC Glucose 199 H 191 H 233 H 01/25/21 15:43 POC Glucose 136 H Microbiology Microbiology Results: Microbiology 01/21/21 Unknown Urine Catheterized - [facility] Catheter Urine Culture - Final Klebsiella pneumoniae 01/21/21 03:59 Blood - Venous Blood Culture - Final Coag negative Staphylococcus 01/21/21 03:59 Blood - Venous Blood Culture - Preliminary No growth after 48 hours. Procedures Date of Service Date of Service: 01/25/21 Assessment & Plan Assessment and plan (1) LETHA (acute kidney injury): Status: Acute Assessment and Plan: LETHA superimposed on CKD Renal functions improved to baseline Continue current supportive care Can have PICC line if needed Shall arrange for OP follow up Time Spent With Patient Time: Total time spent is greater than 50% in coordination of care (as documented) at patient's floor/unit and/or counseling patient: Progress Note: Quality Stroke Does the patient have a stroke diagnosis?: No
[2021-01-25] MEDS: Fluticasone Propionate 100 MCG BLST.W.DEV 1 PUFF INHALE (20:08)
[2021-01-25 20:21] LABS: Glucose, Whole Blood 308 mg/dL (60-115)
[2021-01-26] VITALS: BP 128/61; PULSE 57; RESP 17; TEMP 36.9; O2SAT 96
[2021-01-26 04:00] VITALS: BP 163/91; PULSE 66; RESP 17; TEMP 36.3; O2SAT 96
[2021-01-26 07:12] VITALS: BP 120/65; PULSE 65; RESP 17; TEMP 36.6; O2SAT 99
[2021-01-26 07:49] LABS: Glucose, Whole Blood 175 mg/dL (60-115)
[2021-01-26] MEDS: glipiZIDE XL 2.5 MG TAB.ER.24 PO (08:20)
[2021-01-26] MEDS: hydroCHLOROthiazide 25 MG TABLET PO (08:20)
[2021-01-26] MEDS: Gabapentin 600 MG TABLET PO (08:20)
[2021-01-26] MEDS: Metoprolol Tartrate 25 MG TABLET PO ×2 (08:20→14:06)
[2021-01-26] MEDS: Aspirin Enteric Coated 81 MG TABLET.DR PO (08:20)
[2021-01-26] MEDS: Apixaban 5 MG TABLET PO (08:20)
[2021-01-26] MEDS: lisinopriL 20 MG TABLET PO (08:20)
[2021-01-26] MEDS: FLUoxetine HCl 20 MG CAPSULE PO (08:20)
[2021-01-26] MEDS: polyethylene glycoL 3350 17 GM POWD.PACK PO (08:21)
[2021-01-26] MEDS: Insulin Lispro 100 UNIT/ML 3 ML VIAL SUBCUT ×4 (08:21→11:40)
[2021-01-26] MEDS: 0.9 % Sodium Chloride Flush 3 ML SYRINGE IVFLUSH ×2 (08:22→15:32)
[2021-01-26] MEDS: Insulin Glargine,Hum.rec.anlog 100 UNIT/ML 10 ML VIAL 15 UNIT SUBCUT (09:58)
[2021-01-26 11:24] VITALS: BP 125/90; PULSE 59; RESP 18; TEMP 36.3; O2SAT 97
[2021-01-26 11:31] LABS: Glucose, Whole Blood 173 mg/dL (60-115)
--- NOTE | 2021-01-26 11:47 | PM.PNNEP ---
Subjective Subjective Date of Service: 01/26/21 Interval history: Seen in f/u for ESBL +, LETHA on CKD , resistant UTI; Feels improved Physical Exam Vital Signs: Vital Signs: Last Vital Signs Temp 97.4 F 01/26/21 11:24 Pulse 59 01/26/21 11:24 Resp 18 01/26/21 11:24 BP 125/90 H 01/26/21 11:24 Pulse Ox 97 01/26/21 11:24 BMI result Body Mass Index 47.5 Const: General: no acute distress Eyes: EOM: EOMs intact bilaterally Neck: Neck: Yes supple Resp: Auscultation: diminished lung sounds Cardio: Rate: regular rate GI: Palpation (GI): Soft to palpation Neuro: General: moves all extremities Objective Data Labs CBC & Chem 7: 01/21/21 10:57 01/24/21 08:38 Labs: Laboratory Results - last 24 hr 01/25/21 01/25/21 01/26/21 15:43 20:02 07:10 POC Glucose 136 H 308 H 175 H 01/26/21 11:24 POC Glucose 173 H Microbiology Microbiology Results: Microbiology 01/21/21 03:59 Blood - Venous Blood Culture - Final No growth after 5 days. 01/21/21 Unknown Urine Catheterized - [facility] Catheter Urine Culture - Final Klebsiella pneumoniae 01/21/21 03:59 Blood - Venous Blood Culture - Final Coag negative Staphylococcus Procedures Date of Service Date of Service: 01/26/21 Assessment & Plan Assessment and plan (1) LETHA (acute kidney injury): Status: Acute Assessment and Plan: LETHA superimposed on CKD Renal functions improved to baseline/stable Continue current supportive care Can have PICC line if needed Shall arrange for OP follow up when D/Abel Time Spent With Patient Time: Total time spent is greater than 50% in coordination of care (as documented) at patient's floor/unit and/or counseling patient: Progress Note: Quality Stroke Does the patient have a stroke diagnosis?: No
--- NOTE | 2021-01-26 11:54 | HO.PM.IMPN ---
Subjective Subjective Date of Service: 01/26/21 Interval History: bacteremia Review of Systems Denies any chest pain shortness of breath or fever or chills or abdominal pain Physical Exam Vital Signs: Vital Signs: Last Vital Signs Temp 97.4 F 01/26/21 11:24 Pulse 59 01/26/21 11:24 Resp 18 01/26/21 11:24 BP 125/90 H 01/26/21 11:24 Pulse Ox 97 01/26/21 11:24 BMI result Body Mass Index 47.5 Objective Data Active Medications Acetaminophen (Acetaminophen 325 Mg Tablet) 650 mg PO Q6H PRN PRN Reason: Pain, Mild (Pain Scale 1-3) Last Admin: 01/24/21 20:36 Dose: 650 mg Documented by: CHARLES Albuterol Sulfate (Albuterol Sulfate 90 Mcg 8 Gm Inhaler) 1 puff INHALE QID PRN PRN Reason: Wheezing Apixaban (Apixaban 5 Mg Tablet) 5 mg PO BID [facility]CLUDE 234 BEDS AT THE [facility] Last Admin: 01/26/21 08:20 Dose: 5 mg Documented by: CARMELLA Aspirin (Aspirin Enteric Coated 81 Mg Tablet.Dr) 81 mg PO DAILY [facility]S [facility]CLUDE 234 BEDS AT THE [facility] Last Admin: 01/26/21 08:20 Dose: 81 mg Documented by: CARMELLA Dextrose (Dextrose 50 % 25 Gm/50 Ml Vial) 25 gm IVPUSH Q15M PRN; Protocol PRN Reason: per Hypoglycemia Standing Ord. Fluoxetine HCl (Fluoxetine Hcl 20 Mg Capsule) 20 mg PO DAILY [facility]CLUDE 234 BEDS AT THE [facility] Last Admin: 01/26/21 08:20 Dose: 20 mg Documented by: CARMELLA Fluticasone Propionate (Fluticasone Propionate 100 Mcg Blst.W.Dev) 1 puff INHALE RBID COUNTS INCLUDE 234 BEDS AT THE [facility] Last Admin: 01/26/21 08:10 Dose: Not Given Documented by: ULRICC Non-Admin Reason: Patient Refused Gabapentin (Gabapentin 600 Mg Tablet) 600 mg PO BID [facility]S [facility]CLUDE 234 BEDS AT THE [facility] Last Admin: 01/26/21 08:20 Dose: 600 mg Documented by: CARMELLA Glipizide (Glipizide Xl 2.5 Mg Tab.Er.24) 2.5 mg PO DAILY [facility]CLUDE 234 BEDS AT THE [facility] Last Admin: 01/26/21 08:20 Dose: 2.5 mg Documented by: CARMELLA Glucose (Glucose Gel 15 Gm Gel..Gram.) 15 gm PO Q15M PRN; Protocol PRN Reason: per Hypoglycemia Standing Ord. Hydrochlorothiazide (Hydrochlorothiazide 25 Mg Tablet) 25 mg PO DAILY [facility]CLUDE 234 BEDS AT [facility] Last Admin: 01/26/21 08:20 Dose: 25 mg Documented by: CARMELLA Meropenem 1 gm/ Sodium (Chloride) 100 mls @ 100 mls/hr IV Q12H [facility]S [facility]CLUDE 234 BEDS AT THE [facility] Last Admin: 01/26/21 11:39 Dose: 100 mls/hr Documented by: CARMELLA Insulin Glargine (Insulin Glargine,Hum.Rec.Anlog 100 Unit/Ml 10 Ml Vial) 15 unit SUBCUT DAILY [facility]CLUDE 234 BEDS AT THE [facility] Last Admin: 01/26/21 09:58 Dose: 15 unit Documented by: CARMELLA Insulin Human Lispro (Insulin Lispro 100 Unit/Ml 3 Ml Vial) 0 unit SUBCUT QIDAS COUNTS INCLUDE 234 BEDS AT THE [facility]; Protocol Last Admin: 01/26/21 11:39 Dose: 2 unit Documented by: CARMELLA Insulin Human Lispro (Insulin Lispro 100 Unit/Ml 3 Ml Vial) 4 unit SUBCUT QIDACHS COUNTS INCLUDE 234 BEDS AT THE [facility]; Protocol Last Admin: 01/26/21 11:40 Dose: 4 unit Documented by: CARMELLA Lisinopril (Lisinopril 20 Mg Tablet) 20 mg PO DAILY [facility]CLUDE 234 BEDS AT [facility] Last Admin: 01/26/21 08:20 Dose: 20 mg Documented by: CARMELLA Metoprolol Tartrate (Metoprolol Tartrate 25 Mg Tablet) 25 mg PO Q6H [facility]S [facility]CLUDE 234 BEDS AT [facility]; Protocol Last Admin: 01/26/21 08:20 Dose: 25 mg Documented by: CARMELLA Pharmacy Consult (Consult Rx Perform Med Rec) 1 each MISCELLANE ONCE PRN PRN Reason: Consult order Polyethylene Glycol (Polyethylene Glycol 3350 17 Gm Powd.Pack) 17 gm PO DAILY [facility]S INCLUDE 234 BEDS AT THE [facility] Last Admin: 01/26/21 08:21 Dose: 17 gm Documented by: CARMELLA Sodium Chloride (0.9 % Sodium Chloride Flush 3 Ml Syringe) 3 ml IVFLUSH QSHIFT COUNTS INCLUDE 234 BEDS AT THE [facility] Last Admin: 01/26/21 08:22 Dose: 3 ml Documented by: CARMELLA Labs CBC & Chem 7: 01/21/21 10:57 01/24/21 08:38 Labs: Laboratory Results - last 24 hr 01/25/21 01/25/21 01/26/21 15:43 20:02 07:10 POC Glucose 136 H 308 H 175 H 01/26/21 11:24 POC Glucose 173 H Microbiology Microbiology Results: Microbiology 01/21/21 03:59 Blood Culture - Final Blood - Venous No growth after 5 days. Assessment and Plan Assessment and Plan: 75 yo F with multiple medical problems who presents to the hospital after sustained mechanical falls over the last week. She is found to have LETHA, severe hyperglycemia, new onset a. fib and UTI. She will be admitted for further treatment. 1. Acute Kidney Injury on CKD3 ?creatinine continue to improve, Cr back to baseline 2.Diabetes--better controlled FBS 191, increase Lantus to 20, SSI and 4 unts of pre meal insulin A1C > 10, probably need insulin at home if can administer 3. New-onset A. Fib--rate is controlled now. continue Metoprolol, and Eliquis for stroke prevention 4. UTI--culture = Klebsiela P., ESBL + on meropenem 01/24, ID consult blood cx - 1/2 positive (GPC) coag neg staph-- likely contaminant 5. Hyponatremia (pseudo? -- from hyperglycemia) and hyperK resolved 6. 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 Quality Stroke Does the patient have a stroke diagnosis?: No VTE Prior VTE?: No VTE Risk Level:: Medical - moderate - high VTE Device Contraindication: Treatment Not Indicated VTE Drug Contraindication: N/A - Med Ordered
--- NOTE | 2021-01-26 12:56 | W.PM.IDCN ---
History of Present Illness Data of Consult Service Date: 01/25/21 Requesting physician: Tavon Daigle Primary Care Provider: Unknown Physician HPI Reason for consult: dyuria She presents to hospital with weakness post falls at home. She has dysuria as well as some pelvic discomfort She has been eating. She has ESBL Klebsiella in urine Review of Systems Review of Systems: Yes all other systems are reviewed and are negative PMFSH Past Medical History Medical History Anxiety and depression Arthritis Asthma Chronic pain Diabetes mellitus High cholesterol HTN (hypertension) Lateral malleolar fracture Limited mobility Myocardial infarction Urgency incontinence Family History Family History Father No problems noted. Mother Diabetes High blood pressure Stomach cancer Surgical History Surgical History H/O neck surgery History of cataract extraction History of heart artery stent Hx of cholecystectomy Hx of colonoscopy Social History Social History Household Members: Family Housing: Apartment Are you a primary spiritual care coordinator to a significant other at home: No Do you presently have visiting nurse or other home services: Yes (granddaughter (cleaning machine operator), nursing services) Alcohol intake: current Alcohol intake frequency: does not drink Patient Tobacco Use Status: Former Tobacco user Quit Date: 2004 Tobacco use type: Cigarette Years Smoked: 30-40 years Second Hand Smoke Exposure: No service: No Current occupational status: disabled Meds Allergies Allergy/AdvReac Type Severity Reaction Status Date / Time atorvastatin [ATORVASTATIN] Allergy Intermediate SWELLING Verified 01/21/21 00:13 morphine [MORPHINE] Allergy Intermediate RASH Verified 01/21/21 00:13 zolpidem [From AMBIEN] AdvReac Intermediate SLEEP WALKS Verified 01/21/21 00:13 Active Medications: Current Medications Acetaminophen (Acetaminophen 325 Mg Tablet) 650 mg PO Q6H PRN PRN Reason: Pain, Mild (Pain Scale 1-3) Last Admin: 01/24/21 20:36 Dose: 650 mg Documented by: Albuterol Sulfate (Albuterol Sulfate 90 Mcg 8 Gm Inhaler) 1 puff INHALE QID PRN PRN Reason: Wheezing Apixaban (Apixaban 5 Mg Tablet) 5 mg PO BID [facility] Last Admin: 01/26/21 08:20 Dose: 5 mg Documented by: Aspirin (Aspirin Enteric Coated 81 Mg Tablet.) 81 mg PO DAILY [facility] Last Admin: 01/26/21 08:20 Dose: 81 mg Documented by: Dextrose (Dextrose 50 % 25 Gm/50 Ml Vial) 25 gm IVPUSH Q15M PRN; Protocol PRN Reason: per Hypoglycemia Standing Ord. Fluoxetine HCl (Fluoxetine Hcl 20 Mg Capsule) 20 mg PO DAILY [facility] Last Admin: 01/26/21 08:20 Dose: 20 mg Documented by: Fluticasone Propionate (Fluticasone Propionate 100 Mcg Blst.W.Dev) 1 puff INHALE RBID [facility] Last Admin: 01/26/21 08:10 Dose: Not Given Documented by: Gabapentin (Gabapentin 600 Mg Tablet) 600 mg PO BID [facility] Last Admin: 01/26/21 08:20 Dose: 600 mg Documented by: Glipizide (Glipizide Xl 2.5 Mg Tab.Er.24) 2.5 mg PO DAILY [facility] Last Admin: 01/26/21 08:20 Dose: 2.5 mg Documented by: Glucose (Glucose Gel 15 Gm Gel..Gram.) 15 gm PO Q15M PRN; Protocol PRN Reason: per Hypoglycemia Standing Ord. Hydrochlorothiazide (Hydrochlorothiazide 25 Mg Tablet) 25 mg PO DAILY [facility] Last Admin: 01/26/21 08:20 Dose: 25 mg Documented by: Meropenem 1 gm/ Sodium (Chloride) 100 mls @ 100 mls/hr IV Q12H [facility] Last Admin: 01/26/21 11:39 Dose: 100 mls/hr Documented by: Insulin Glargine (Insulin Glargine,Hum.Rec.Anlog 100 Unit/Ml 10 Ml Vial) 15 unit SUBCUT DAILY [facility] Last Admin: 01/26/21 09:58 Dose: 15 unit Documented by: Insulin Human Lispro (Insulin Lispro 100 Unit/Ml 3 Ml Vial) 0 unit SUBCUT QIDACHS [facility]; Protocol Last Admin: 01/26/21 11:39 Dose: 2 unit Documented by: Insulin Human Lispro (Insulin Lispro 100 Unit/Ml 3 Ml Vial) 4 unit SUBCUT QIDACHS [facility]; Protocol Last Admin: 01/26/21 11:40 Dose: 4 unit Documented by: Lisinopril (Lisinopril 20 Mg Tablet) 20 mg PO DAILY [facility] Last Admin: 01/26/21 08:20 Dose: 20 mg Documented by: Metoprolol Tartrate (Metoprolol Tartrate 25 Mg Tablet) 25 mg PO Q6H [facility]; Protocol Last Admin: 01/26/21 08:20 Dose: 25 mg Documented by: Pharmacy Consult (Consult Rx Perform Med Rec) 1 each MISCELLANE ONCE PRN PRN Reason: Consult order Polyethylene Glycol (Polyethylene Glycol 3350 17 Gm Powd.Pack) 17 gm PO DAILY [facility] Last Admin: 01/26/21 08:21 Dose: 17 gm Documented by: Sodium Chloride (0.9 % Sodium Chloride Flush 3 Ml Syringe) 3 ml IVFLUSH QSHIFT [facility] Last Admin: 01/26/21 08:22 Dose: 3 ml Documented by: Home Medications Medication Instructions Recorded Confirmed Last Taken Type amlodipine 2.5 mg tablet 2.5 mg PO DAILY 06/23/20 01/21/21 Unknown History metformin 850 mg tablet 850 mg PO BID 06/23/20 01/21/21 01/19/21 10:00 History quetiapine 100 mg tablet 100 mg PO BEDTIME 06/23/20 01/21/21 Unknown History albuterol sulfate 90 mcg/actuation 1 inh INHALATION QID PRN 08/24/20 01/21/21 Unknown History aerosol inhaler (ProAir HFA) fluticasone propionate 110 1 puff INHALATION BID 08/24/20 01/21/21 01/20/21 13:00 History mcg/actuation HFA aerosol inhaler gabapentin 600 mg tablet 600 mg PO BID 08/24/20 01/21/21 01/20/21 09:00 History aspirin 81 mg capsule 81 mg PO DAILY 01/21/21 01/21/21 Unknown History fluoxetine 20 mg capsule 1 cap PO DAILY 01/21/21 01/21/21 Unknown History glipizide 2.5 mg tablet, extended 1 tab PO DAILY 01/21/21 01/21/21 01/19/21 History release 24 hr lisinopril 20 1 tab PO DAILY 01/21/21 01/21/21 Unknown History mg-hydrochlorothiazide 25 mg tablet Physical Exam Vital Signs: Vital Signs: Last Vital Signs Temp 97.4 F 01/26/21 11:24 Pulse 59 01/26/21 11:24 Resp 18 01/26/21 11:24 BP 125/90 H 01/26/21 11:24 Pulse Ox 97 01/26/21 11:24 BMI result Body Mass Index 47.5 Const: General: cooperative Eyes: General: appearance normal, both eyes and all related structures Resp: Effort & Inspection: normal respiratory effort Cardio: Rate: regular rate Rhythm: regular rhythm GI: Palpation (GI): Soft to palpation and nontender : General: Yes no CVA tenderness Back/Spine/Pelvis: Back: no CVA tenderness Skin: General skin exam: no rashes or lesions noted Extrem: General: Yes normal to inspection Results Labs CBC & Chem 7: 01/21/21 10:57 01/24/21 08:38 Microbiology Microbiology Results: Microbiology 01/21/21 03:59 Blood - Venous Blood Culture - Final No growth after 5 days. 01/21/21 Unknown Urine Catheterized - Solis Catheter Urine Culture - Final Klebsiella pneumoniae 01/21/21 03:59 Blood - Venous Blood Culture - Final Coag negative Staphylococcus Assessment and Plan (1) Multiple falls: Status: Acute (2) Acute UTI: Status: Acute ESBL Klebsiella She was symptomatic and there are limited antibacterial options Would give 10 days Ertapenem .5 g daily total Midline may be used
--- NOTE | 2021-01-26 13:11 | P.CDIC_ITS ---
CDI Concurrent Query Documentation Clarification: PHYSICIAN'S DOCUMENTATION REQUEST Date of Query: 01/26/21 1311 Patient Name: Shweta Woodard Admit Date: 01/21/21 Dear Doctor, A review of the medical record indicates additional documentation may be needed. Please review below and update the documentation accordingly. Clinical Indicators: Height: [] 5'2 Weight: [] 117.934 kg BMI: [] 47.6 Other Clinical Notes Supporting Significance of the BMI: Risk Factors/Clinical Indicators/Treatments If possible, please provide an associated diagnosis related to the abnormal BMI, such as: For a BMI >= 40: * Overweight * Obesity * Due to excess calories * Drug induced * Due to other cause * Severe or Morbid Obesity * With alveolar hypoventilation * Without alveolar hypoventilation Or: * BMI is not significant * Other (please specify) * Unable to determine Use of terms such as suspected, likely, concern for, or probable (associated with a specific diagnosis that is being evaluated, monitored, or treated as if it exists) are acceptable and can be coded in the inpatient setting, when documented at the time of discharge. Thank you, Blossom Klien RN Extension: [phone] Please use your independent medical judgment in providing your response. THIS QUERY IS PART OF THE PERMANENT MEDICAL RECORD Provider Response: Other Other Diagnosis: morbid obesity
--- NOTE | 2021-01-26 14:28 | P.DS_ITS ---
DS: Providers Provider Date of Service: 01/26/21 Date of admission: 01/21/21 09:58 Primary care physician: Unknown Physician Consults: 01/21/21 04:21 Consult to Nephrology Routine Consulting Provider: Piter Novoa Reason for consultation: LETHA 01/24/21 09:59 Consult to Infectious Diseases Routine Consulting Provider: Vicky Gant Reason for consultation: esbl+ organism Has provider been notified: Yes 01/25/21 07:32 Consult to Infectious Diseases Routine Consulting Provider: Vicky Gant Reason for consultation: resistant ESBL klebsiela in urine DS: Diagnosis Discharge Diagnosis (1) Multiple falls: Status: Acute (2) Acute UTI: Status: Acute (3) Hyperglycemia: Status: Acute DS: Summary Hospital Course Hospital Course: 75 yo F who is wheel chair bound with a PMH of DM, HTN, Urinary incontinence, Asthma, HLD, CAD s/p AR with stenting who presents to the hospital with complaints of multiple falls (3) over the last 1 week. Patient does speak some Italian, but interperter services are used for the full history. She reports that has sustained 3 falls over the last 1 week, all of which have occurred in the same manner. She reports that she uses a power wheel chair and does transfer from chair to bed by herself. During this process, she frequently moves the wheel chair, by accident and ends up falling on her bottom. She denies any loss of consciousness. She denies any seizure type activity. She denies any current pain. In regards to her diabetes, she reports only being on oral treatment. She reports that she has not missed any doses of her metformin / glipizide. She does endorse however that she does not follow a diabetic diet and often has drinks with high sugar content. She also endorses chronic urinary incontinence, but more recently over the last several weeks she reports dysuria and cloudy urine. She denies any fevers or chills. Denies any flank pain. In the ED, her work up showed acute kidney injury (SCr 2.78) with a baseline around 1.3. Her blood glucose was 897 with a negative gap / acetone. She was also in new onset rapid a. fib and her UA was suggestive of UTI. A CT c-spine / head were negative for acute findings, as was hip/pelvic XR. She was given a dose of lovenox (for a. fib -- Chadsvasc score of 5), Multiple rounds of IV and sucbutaneous insulin, 2L IVF, 1 dose of rocephin , IV meotprolol. She had persistent hyperglycemia and LETHA and now will be admitted for further care. Hospital course: patient came to the hospital because of fall and has found to have LETHA, AFib and UTI and patient also had uncontrolled diabetes mellitus:: dm:Patient was started on Lantus for diabetic control-seems fs in range 170- 200's -continue lantus and home meds. new AFib : on metoprolol and added Eliquis. UTI- found to have ESBL ( resistant bacteria)- PICC line placed patient will need ertapenem iv - please complete the course of antibiotic, monitor CBC, BMP, LFT while on antibiotics. blood cx - 1/2 positive (GPC) coag neg staph-- likely contaminant. letha improved With IV hydration and UTI And hyperglycemia management: his renal function seems to be near baseline, monitor BMP outpatient with PCP and further management outpatient as per PCP and Nephro. Above management discussed with the patient in detail length she understand and in agreement with the above plan, time spent 50 minutes and 50% time spent on counseling. Significant findings: As above. Procedures performed: None. Treatment and response: As above. Complications: None. Time Spent with Patient Time attestation: Total time spent providing and/or coordinating discharge services: Discharge coordination time: Greater than 30 minutes Quality: Stroke Does the patient have a stroke diagnosis?: No Physical Exam Vital Signs: Vital Signs: Last Vital Signs Temp 97.4 F 01/26/21 11:24 Pulse 59 01/26/21 11:24 Resp 18 01/26/21 11:24 BP 125/90 H 01/26/21 11:24 Pulse Ox 97 01/26/21 11:24 BMI result Body Mass Index 47.5 Physical exam: Appearance: Alert.? Oriented X3.? not in distress.? Eyes: Pupils equal, round and reactive to light.? Sclera nonicteric.? ENT: Pharynx normal.? Moist mucous membranes. cvs: rrr, [id number] , no murmur res: clear to auscultation ,no rhonchii or wheezing abd: no rebound or guarding ,nt, bs present. ext pulses present , no cyanosis ,Gait well balanced well coordinated. neuro: axo3 , nonfocal. DS: Data Data Completed and Pending Labs on day of discharge: Laboratory Results - last 24 hr 01/25/21 01/25/21 01/26/21 15:43 20:02 07:10 POC Glucose 136 H 308 H 175 H 01/26/21 11:24 POC Glucose 173 H Additional Comments Additional comments: ?01/21/21 03:59 Blood Culture - Final ?Blood - Venous ?? No growth after 5 days. hip xray:IMPRESSION: No acute findings identified. Ct head:IMPRESSION: 1.? Head: Partially limited assessment due to artifact. No acute findings identified. 2.? Cervical spine: No acute findings identified. Redemonstrated postoperative changes from spinal fusion. Discharge Plan Discharge Patient Disposition: Home Health Service Discharge Diagnosis: esbl uti, uncontrolled diabetes, LETHA on ckd, new onset AFib. Referrals: [facility] [Other] - 1 Day ([facility] WILL DELIVER IV ANTIBIOTICS, PLEASE CALL [phone] WITH ANY CONCERNS. ) [facility] [Outside] - 1 Day (IV ANTIBIOTIC/ PICC LINE MANAGEMENT. ) Physician,Unknown J [Primary Care Provider] - 1 Week Discharge Medications: New ertapenem [Invanz] 1 gram Recon Soln 0.5 g IV DAILY Qty: 9 RF: 0 Eliquis 5 mg Tablet 5 mg PO BID Qty: 60 RF: 0 Lantus Solostar U-100 Insulin 100 unit/mL (3 mL) insulin pen 15 unit subcut QAM Qty: 15 RF: 0 metoprolol tartrate 25 mg Tablet 50 mg PO BID Qty: 60 RF: 0 insulin lispro [Humalog KwikPen Insulin] 100 unit/mL insulin pen 2 unit subcut TID Qty: 15 RF: 0 (DME) lancets [FreeStyle Lancets] 28 gauge misc See Rx Instructions .ROUTE .MEDSUPPLY Qty: 100 RF: 0 (DME) FreeStyle Lite Strips Strip See Rx Instructions .Route Qty: 100 RF: 0 (DME) pen needle, diabetic [Pen Needle] 32 gauge x 5/32 needle See Rx Instructions .Route Qty: 50 RF: 0 alcohol swabs [Alcohol Pads] Pads, Medicated 1 pad topical TID-QID PRN (Reason: dm) Qty: 100 RF: 0 Continued gabapentin 600 mg Tablet 600 mg PO BID RF: 0 albuterol sulfate [ProAir HFA] 90 mcg/actuation Hfa Aerosol Inhaler 1 inh INHALATION QID PRN (Reason: Wheezing) RF: 0 fluticasone propionate 110 mcg/actuation Hfa Aerosol Inhaler 1 puff INHALATION BID RF: 0 lisinopril-hydrochlorothiazide 20-25 mg tablet 1 tab PO DAILY RF: 0 aspirin 81 mg Capsule 81 mg PO DAILY RF: 0 fluoxetine 20 mg capsule 1 cap PO DAILY RF: 0 glipizide 2.5 mg tablet extended release 24 hr 1 tab PO DAILY RF: 0 Discontinued amlodipine 2.5 mg tablet 2.5 mg PO DAILY RF: 0 Discharge Orders: Discharge Order (Routine); Ordered 01/26/21 Ordered By: Thiago Garcia Diet: advance to usual diet Activity on Discharge: As tolerated Stand Alone Forms: Patient Portal Discharge page Care Plan Goals: patient came to the hospital because of fall and has found to have LETHA, AFib and UTI and patient also had uncontrolled diabetes mellitus:: Patient was started on Lantus for diabetic control, also AFib : on metoprolol and added Eliquis. UTI- found to have ESBL ( resistant bacteria)- PICC line placed patient will need ertapenem iv - please complete the course of antibiotic, monitor CBC, BMP, LFT while on antibiotics. blood cx - 1/2 positive (GPC) coag neg staph-- likely contaminant. Health Concerns: as above. Plan of Treatment: as above. Assessment: as above. Discharge Date/Time: 01/26/21 16:20
--- NOTE | 2021-01-26 14:43 | MHC.CM.PN ---
PT DISCHARGING HOME W/HVNA FOR NEW ELIQUIS, NEW INSULIN AND IV ABX, PT HAS [facility] FOR IV ABX, FAMILY AT BEDSIDE AND WILL TRANSPORT.
[2021-01-26] MEDS: Ertapenem Sodium 0.5 GM in 0.9 % Sodium Chloride 50 ML IV (15:29)
--- NOTE | 2021-01-26 15:38 | W.MHC.F2F ---
Service Date Service Date: 01/26/21 Encounter Date of encounter: 01/26/21 Encounter: KOKO, AFib and UTI and patient also had uncontrolled diabetes mellitus Reasons for Services Reason for senior living: administration of IV, SQ, or IM injection, diabetic teaching, monitoring of unstable blood sugar, medication management, medication treatment and teach disease management MD Overseeing Care: Janet Phelan Homebound: Leaving the home is medically contraindicated at this time without the asist of a device and/or another person due th the listed conditions above and below. Homebound supporting statement: patient had multiple comorbidities, Koko on CKD, Uncontrolled diabetes, UTI, new onset AFib, will be on long-term IV antibiotic, need help to going to appointments. Certification: Based on the above findings, I certify that this patient is confined to the home and needs intermittent senior living care, physical therapy and/or speech therapy, or continues to need occupational therapy. The patient is under my care, and I have initiated the establishment of the plan of care. The patient will be followed by a physician who will periodically review the plan of care.
== END 2021-01-26 16:20 | disposition home health service (06) | DRG 683 ==
LOC: HO.ED 01-21 08:06 → HO.EDOVER 01-21 10:32 → HO.S3 01-21 19:10
PROVIDERS: Internal Medicine; Student in an Organized Health Care Education/Training Program; Admitting Provider Family Medicine; Emergency Provider Emergency Medicine; PCP Internal Medicine; Visit Provider Internal Medicine
DX: N17.9 Acute kidney failure, unspecified (principal); N39.0 Urinary tract infection, site not specified; Z16.12 Extended spectrum beta lactamase (ESBL) resistance; Z68.42 Body mass index [BMI] 45.0-49.9, adult; I12.9 Hypertensive chronic kidney disease with stage 1 through stage 4 chronic kidney disease, or unspecified chronic kidney disease; N18.30 Chronic kidney disease, stage 3 unspecified; E11.22 Type 2 diabetes mellitus with diabetic chronic kidney disease; E11.65 Type 2 diabetes mellitus with hyperglycemia; R29.6 Repeated falls; Z91.81 History of falling; Z20.822 Contact with and (suspected) exposure to COVID-19; Z23 Encounter for immunization; Z99.3 Dependence on wheelchair; E86.0 Dehydration; I48.91 Unspecified atrial fibrillation; B96.1 Klebsiella pneumoniae [K. pneumoniae] as the cause of diseases classified elsewhere; E66.01 Morbid (severe) obesity due to excess calories; I25.10 Atherosclerotic heart disease of native coronary artery without angina pectoris; I25.2 Old myocardial infarction; Z87.891 Personal history of nicotine dependence; Z91.14 Patient's other noncompliance with medication regimen; Z88.5 Allergy status to narcotic agent; Z79.51 Long term (current) use of inhaled steroids; Z79.01 Long term (current) use of anticoagulants; Z79.899 Other long term (current) drug therapy
CPT/HCPCS: 36410; 36415; 70450; 72125; 73521; 80048; 80053; 81001; 82009; 82550; 82947; 83036; 83605; 83880; 84484; 85025; 85027; 85610; 85730; 87040; 87086; 87088; 87147; 87186; 87205; 87635; 90686; 93005; 93306; 96361; 96365; 96372; 96375; 96376; 99285; J0696; J1335; J1650; J2185

== ENCOUNTER 2021-02-01 14:33 | Outpatient (REF) | payer MEDICARE, SELFPAY ==
[2021-02-01 14:37] LABS: MANUAL DIFF FLAG NO
[2021-02-01 14:41] LABS: Basophils Percent Auto 0.5 % (0-2); Eosinophils Absolute Auto 0.2 X10*3/uL (0.0-0.4); Eosinophils Percent Auto 2.3 % (0-4); Hematocrit 38.4 % (37.0-47.0); Hemoglobin 11.6 g/dl (12.0-16.0); Imm Gran Abs Auto 0.02 X10*3/uL (0.00-0.03); Imm Gran Pct Auto 0.3 % (0.0-0.4); Lymphocytes Absolute Auto 2.3 X10*3/uL (1.2-4.9); Lymphocytes Percent Auto 29.3 % (20-40); Mean Corpuscular HGB Conc 30.2 g/dl (31.0-35.0); Mean Corpuscular Hemoglobin 28.6 pg (27.0-33.0); Mean Corpuscular Volume 94.6 fL (80.0-98.0); Mean Platelet Volume 11.7 fL (9.4-12.3); Monocytes Absolute Auto 0.6 X10*3/uL (0.1-1.2); Monocytes Percent Auto 7.3 % (2-11); Neutrophils Absolute Auto 4.8 x10*3/uL (2.0-8.3); Neutrophils Percent Auto 60.3 % (45-73); Platelet Count 361 X10*3/uL (160-400); Red Blood Count 4.06 X10*6/uL (4.20-5.50); Red Cell Distribution Width 14.5 % (11.0-16.0); White Blood Count 7.9 X10*3/uL (4.8-10.8)
[2021-02-01 15:25] LABS: Alanine Aminotransferase 20 U/L (0-31); Albumin Level 3.5 g/dL (3.5-5.0); Alkaline Phosphatase 101 U/L (39-117); Anion Gap 15 (12-20); Aspartate Amino Transferase 17 U/L (5-31); Bilirubin Direct < 0.2 mg/dL (0.0-0.5); Bilirubin Total 0.3 mg/dL (0.0-1.0); Blood Urea Nitrogen 52 mg/dL (9-16); Calcium 8.6 mg/dL (8.4-10.2); Carbon Dioxide 24 mmol/L (22-29); Chloride 106 mmol/L (96-108); Estimated Glomerular Filt Rate 13; Glucose Random 181 mg/dL (60-115); Sodium 140 mmol/L (135-145); Total Protein 6.7 g/dL (6.5-8.0)
== END 2021-02-01 14:34 | disposition home or self-care (01) ==
LOC: HO.LNP 14:33
PROVIDERS: Visit Provider Internal Medicine
DX: N39.0 Urinary tract infection, site not specified (principal); B96.1 Klebsiella pneumoniae [K. pneumoniae] as the cause of diseases classified elsewhere; Z79.2 Long term (current) use of antibiotics
CPT/HCPCS: 80048; 80076; 85025

== ENCOUNTER 2021-03-09 11:24 | Outpatient (REF) | payer MEDICARE, SELFPAY ==
[2021-03-09 11:57] LABS: MANUAL DIFF FLAG NO
[2021-03-09 12:20] LABS: Basophils Percent Auto 0.5 % (0-2); Eosinophils Absolute Auto 0.2 X10*3/uL (0.0-0.4); Eosinophils Percent Auto 2.6 % (0-4); Hematocrit 39.3 % (37.0-47.0); Hemoglobin 12.1 g/dl (12.0-16.0); Imm Gran Abs Auto 0.01 X10*3/uL (0.00-0.03); Imm Gran Pct Auto 0.2 % (0.0-0.4); Lymphocytes Percent Auto 29.5 % (20-40); Mean Corpuscular HGB Conc 30.8 g/dl (31.0-35.0); Mean Corpuscular Hemoglobin 28.8 pg (27.0-33.0); Mean Corpuscular Volume 93.6 fL (80.0-98.0); Mean Platelet Volume 10.8 fL (9.4-12.3); Monocytes Absolute Auto 0.5 X10*3/uL (0.1-1.2); Monocytes Percent Auto 7.3 % (2-11); Neutrophils Percent Auto 59.9 % (45-73); Platelet Count 294 X10*3/uL (160-400); Red Cell Distribution Width 13.5 % (11.0-16.0); White Blood Count 6.6 X10*3/uL (4.8-10.8)
[2021-03-09 12:30] LABS: Estimated Average Glucose 192 mg/dL; Hemoglobin A1c % 8.3 %
[2021-03-09 12:53] LABS: Alanine Aminotransferase 14 U/L (0-31); Albumin Level 3.9 g/dL (3.5-5.0); Alkaline Phosphatase 90 U/L (39-117); Anion Gap 14 (12-20); Aspartate Amino Transferase 14 U/L (5-31); Bilirubin Total 0.3 mg/dL (0.0-1.0); Blood Urea Nitrogen 47 mg/dL (9-16); Calcium 9.1 mg/dL (8.4-10.2); Carbon Dioxide 22 mmol/L (22-29); Chloride 111 mmol/L (96-108); Cholesterol 231 mg/dL; Estimated Glomerular Filt Rate 24; Glucose Random 114 mg/dL (60-115); HDL Cholesterol 30 mg/dL; LDL Cholesterol Calculated 157 mg/dl; Potassium 4.5 mmol/L (3.3-5.1); Sodium 142 mmol/L (135-145); Total Protein 7.1 g/dL (6.5-8.0); Triglycerides 224 mg/dL
== END 2021-03-09 11:25 | disposition home or self-care (01) ==
LOC: HO.LAB 11:24
PROVIDERS: PCP Internal Medicine; Visit Provider Internal Medicine
DX: Z00.01 Encounter for general adult medical examination with abnormal findings (principal); E11.29 Type 2 diabetes mellitus with other diabetic kidney complication; E78.00 Pure hypercholesterolemia, unspecified; H81.399 Other peripheral vertigo, unspecified ear; M50.03 Cervical disc disorder with myelopathy, cervicothoracic region
CPT/HCPCS: 36415; 80053; 80061; 83036; 85025

== ENCOUNTER → 2021-03-24 12:49 | Outpatient (BNVA) | payer MEDICARE, SELFPAY | PROVIDERS: Visit Provider Urology | DX: N39.41 Urge incontinence (principal); N39.0 Urinary tract infection, site not specified; R35.0 Frequency of micturition | CPT/HCPCS: 51798; 99212 ==

== ENCOUNTER 2021-04-19 09:08 | Day surgery (SDC) | payer MEDICARE, SELFPAY ==
[2021-04-19 09:46] VITALS: BP 112/54; PULSE 86; RESP 19; TEMP 36.1; O2SAT 96; BMI 40.0
[2021-04-19 09:54] LABS: Glucose, Whole Blood 128 mg/dL (60-115)
--- NOTE | 2021-04-19 10:20 | P.HPSUR_ITS ---
Pre-Procedural Eval Section A Date of Service: 04/19/21 The patient is an INPATIENT: No Changes since office visit: No Cold of Flu in the past 2 weeks, No New Medical Problems, No Changes in Medication and No Patient answered all questions The History & Physical has been completed within 30 days and I have reviewed it.: No Section B Chief Complaint: urge incontinence Details of Present Illness: overactive bladder non responsive to oral medications Relevant Family History (Specify if Yes): No Relevant Social History: None Present Medications: see Short Stay Collaborative assessment Medical History: No relevant PMH History of Previous Operations: No relevant previous surgery Allergies: Allergies Allergy/AdvReac Type Severity Reaction Status Date / Time atorvastatin [ATORVASTATIN] Allergy Intermediate SWELLING Verified 04/13/21 15:29 morphine [MORPHINE] Allergy Intermediate RASH Verified 04/13/21 15:29 zolpidem [From AMBIEN] AdvReac Intermediate SLEEP WALKS Verified 04/13/21 15:29 Review of Systems Sugical H&P ROS: Negative: Constitution, Cardiovascular, Respiratory, Neurological, Psychiatric, Hem-Onc, Allergic/Immunologic, Gastrointestinal, Gen itourinary, Musculoskeletal, Integumentary, Endocrine and Eyes/Ears/Nose/Throat Exam Surgical H&P Exam: Normal: HEENT, Normal: Heart, Normal: Lungs, Normal: Extremities, Normal: Abdomen, Normal: Skin and Normal: Neurological Plan Diagnosis/Plan: Unchanged ( Botox bladder injections) I have reviewed the history and physical and performed a pertinent physical examination on my patient. No changes have occurred unless specified.
--- NOTE | 2021-04-19 11:30 | P.CONAN_ITS ---
HPI - Anesthesia Eval Consult details Narrative: 75yo female patient for Cystoscopy, botox injection PMFSH Active Problems Active Problems: All Active Problems (Updated 04/13/21 @ 15:35 by Remedios Rodas RN) Frequency of micturition (Acute) LETHA (acute kidney injury) (Acute) Acute UTI (Acute) Chronic UTI (urinary tract infection) (Acute) Urgency incontinence (Acute) Eliquis- last dose 04/18/21 H/o aflutter/afib Past Medical History Medical History Anxiety and depression Arthritis Asthma Atrial flutter Chronic pain Diabetes mellitus High cholesterol HTN (hypertension) Hyperglycemia Lateral malleolar fracture Limited mobility Multiple falls Myocardial infarction On anticoagulant therapy On beta lanette at home Urgency incontinence Family History Family History Father No problems noted. Mother Diabetes High blood pressure Stomach cancer Family history of problems with anesthesia: No Surgical History Surgical History H/O neck surgery History of cataract extraction History of cystoscopy History of heart artery stent Hx of cholecystectomy Hx of colonoscopy History of Problems with Anesthesia: No Social History Social History Household Members: Family Housing: Apartment Are you a primary inpatient care manager rn to a significant other at home: No Do you presently have visiting nurse or other home services: Yes (granddaughter (patient manager), nursing services) Alcohol intake: current Alcohol intake frequency: does not drink Patient Tobacco Use Status: Former Tobacco user Quit Date: 2004 Tobacco use type: Cigarette Years Smoked: 30-40 years Second Hand Smoke Exposure: No Use of substances other than those prescribed or required for medical reasons: No Are you DNR?: No Advance Directives: No Advance Directives Information Provided: Yes Nutrition Risks: No Nutritional Risk service: No Current occupational status: disabled Meds Allergies Allergy/AdvReac Type Severity Reaction Status Date / Time atorvastatin [ATORVASTATIN] Allergy Intermediate SWELLING Verified 04/13/21 15:29 morphine [MORPHINE] Allergy Intermediate RASH Verified 04/13/21 15:29 zolpidem [From AMBIEN] AdvReac Intermediate SLEEP WALKS Verified 04/13/21 15:29 Active Medications: Current Medications Botulinum Toxin Type A (Onabotulinumtoxina 100 Unit Vial) 100 unit INTRADETRU ONCE ONE Stop: 04/19/21 11:31 Home Medications Medication Instructions Recorded Confirmed Last Taken Type metformin 850 mg tablet 850 mg PO BID 06/23/20 04/13/21 01/19/21 10:00 History quetiapine 100 mg tablet 100 mg PO BEDTIME 06/23/20 04/13/21 Unknown History albuterol sulfate 90 mcg/actuation 1 inh INHALATION QID PRN 08/24/20 04/13/21 Unknown History aerosol inhaler (ProAir HFA) fluticasone propionate 110 1 puff INHALATION BID 08/24/20 04/13/21 01/20/21 13:00 History mcg/actuation HFA aerosol inhaler gabapentin 600 mg tablet 600 mg PO BID 08/24/20 04/13/21 01/20/21 09:00 History aspirin 81 mg capsule 81 mg PO DAILY 01/21/21 04/13/21 04/15/21 History fluoxetine 20 mg capsule 1 cap PO DAILY 01/21/21 04/13/21 Unknown History glipizide 2.5 mg tablet, extended 1 tab PO DAILY 01/21/21 04/13/21 01/19/21 History release 24 hr lisinopril 20 1 tab PO DAILY 01/21/21 04/13/21 Unknown History mg-hydrochlorothiazide 25 mg tablet lancing device with lancets kit #1 ea 03/24/21 Unknown History ([employer] Delica Lanc Device) Exam Exam Date and Time: April 19, 2021 1130 Height,Weight and Vital Signs: Height 5 ft 3 in Weight 102.512 kg Last Vital Signs Temp 97 F 04/19/21 09:46 Pulse 86 04/19/21 09:46 Resp 19 04/19/21 09:46 BP 112/54 L 04/19/21 09:46 Pulse Ox 96 04/19/21 09:46 Pertinent Lab Results Pertinent Lab Results: Laboratory Tests 04/19/21 09:50 POC Glucose 128 H Narrative Narrative: Procedure Date:? 01/22/2021 Procedure Type:? Transthoracic Echocardiogram Symptoms:? new onset a. fib ? Conclusions: - Normal left ventricular size and systolic function.? - Normal right ventricular cavity size and systolic function.? ? Findings Left Ventricle Normal left ventricular size and systolic function. There is mildly increased left ventricular wall thickness.? The visually estimated ejection fraction is between 55-60%.? There is no evidence of regional wall motion abnormalities. Diastolic function is indeterminate on the basis of available data. Airway Mallampati Class: III TM Dist: >3cm Neck ROM: Full Heart: RRR Lungs: CTAB Assessment and Plan Assessment Anesthesia Assessment: Anesthesia Plan Discussed and Chart Reviewed Final Anesthetic Review Family History of Problems with Anesthesia: No History of Problems with Anesthesia: No NPO: Yes ASA Class: III Final Preanesthetic Review: No Changes in Pt Med Stat, Meds/Allgs Chart Reviewed, Consent Obtained/Reviewed and Anes Risks/Benef Reviewed Patient Risk: Intermediate Procedure Risk: Low Assessment/Block/Sedation in SS: Assess/Block/Sedation-SS Anesthetic Plan Anesthetic Plan: GA and MAC: Disposition: Standard PACU
[2021-04-19] MEDS: 0.9 % Sodium Chloride 1,000 ML 50 ML IVCONT (11:38)
--- NOTE | 2021-04-19 12:22 | W.PM.OPN ---
Operative Note Operative Note Date of Service: 04/19/21 Narrative: PreOperative Diagnosis: Overactive bladder with failure of medications Post Operative Diagnosis: Overactive bladder with failure of medications Procedure: Cystoscopy with injection 100 units Botox intra detrusor muscle Surgeon: Dr Mayito Calhoun Anesthesia: Sedation Indications for procedure: Is a very pleasant 75-year-old female. Has persistent urgency and frequency. Has failed oral medications. At office cystoscopy has effective emptying with minimal urethral rotation on cough. For cystoscopy and Botox injection. Is aware of the risks and benefits particularly related to urinary retention and possible infection. - prior ESBL urinary tract infection. Gentamicin given as perioperative control. poorly controlled diabetes HbA1c 8.3 Procedure: After informed consent was verified the patient was brought to the operating room and placed in a supine position. Anesthesia was administered per protocol. Cystoscopy performed with 22 [place] cystoscope. Bladder was emptied of urine. Bladder was refilled. Using 100 units of Botox mixed in 10 cc of normal saline injections were placed at the back wall of the bladder. 0.5cc placed at each injection site. Injections were placed in a grid 5 across and for high. Injections were placed from the inferior to superior position. Trabeculations on the bladder wall with targeted for each injection site. Procedure was tolerated well. Patient was extubated and transferred in stable condition to the recovery area. Pathology: None Drains: None
[2021-04-19 12:27] VITALS: BP 110/65; PULSE 67; RESP 14; TEMP 36.3; O2SAT 97
[2021-04-19] MEDS: Gentamicin Sulfate/NaCl 80 MG/100 ML PIGGYBACK 100 MG IV (12:30)
[2021-04-19 12:32] VITALS: BP 118/40; PULSE 60; RESP 16; O2SAT 97
[2021-04-19] MEDS: Acetaminophen 325 MG TABLET 650 MG PO (12:33)
[2021-04-19] MEDS: Phenazopyridine HCL 100 MG TABLET PO (12:33)
[2021-04-19 12:37] VITALS: BP 114/64; PULSE 60; RESP 17; O2SAT 97
[2021-04-19 12:42] VITALS: BP 108/62; PULSE 62; RESP 16; O2SAT 97
[2021-04-19 12:57] VITALS: BP 114/48; PULSE 57; RESP 16; O2SAT 97
== END 2021-04-19 13:20 | disposition home or self-care (01) ==
PROVIDERS: PCP Internal Medicine; Visit Provider Urology
PROC: 3E0K8GC Introduction of Other Therapeutic Substance into Genitourinary Tract, Via Natural or Artificial Opening Endoscopic (ICD-10-PCS; CPT 52287; principal; 2021-04-19 11:20)
DX: N39.41 Urge incontinence (principal); R35.0 Frequency of micturition; N39.0 Urinary tract infection, site not specified; N32.81 Overactive bladder; N36.2 Urethral caruncle; N95.2 Postmenopausal atrophic vaginitis; J45.909 Unspecified asthma, uncomplicated; I48.92 Unspecified atrial flutter; I10 Essential (primary) hypertension; E78.00 Pure hypercholesterolemia, unspecified; E11.9 Type 2 diabetes mellitus without complications; Z79.4 Long term (current) use of insulin; Z79.01 Long term (current) use of anticoagulants; Z79.899 Other long term (current) drug therapy; Z88.0 Allergy status to penicillin; Z91.81 History of falling; Z90.49 Acquired absence of other specified parts of digestive tract; Z87.891 Personal history of nicotine dependence
CPT/HCPCS: 52287; 82947; J0585; J1580; J1956; J3010

== ENCOUNTER 2021-04-28 14:23 | Outpatient (REF) | payer MEDICARE, SELFPAY ==
--- NOTE | ~2021-04-28 | MM_ITS ---
EXAMINATION: MM SCREENING DIGITAL BREAST TOMOSYNTHESIS, BILATERAL CLINICAL INFORMATION: Screening. Asymptomatic. The lifetime risk of breast cancer based on the Tyrer-Cuzick Model is 5%. COMPARISON: Mammography: 04/16/2020, 05/15/2018, 05/09/2017 TECHNIQUE: Digital breast tomosynthesis is performed in both the craniocaudal and mediolateral oblique views along with computer-aided detection (CAD). Synthesized 2D images are generated from the tomosynthesis. Additional left MLO x2 and additional right MLO views are provided. FINDINGS: The breasts are almost entirely fatty (ACR BI-RADS breast composition Category a). There are no significant masses, abnormal calcifications, or other abnormalities. Parenchymal pattern is similar to prior studies. No developing density or architectural abnormality. There are MM/MM tomosynthesis screening BI IMPRESSION: No mammographic evidence of malignancy. ASSESSMENT: BI-RADS 1: Negative RECOMMENDATION: Routine annual mammography screening. This patient's information was entered into a reminder system with a target due date for their next mammogram.
== END 2021-04-28 14:24 | disposition home or self-care (01) ==
LOC: HO.MAMMO 14:23
PROVIDERS: PCP Internal Medicine; Visit Provider Internal Medicine
DX: Z12.31 Encounter for screening mammogram for malignant neoplasm of breast (principal)
CPT/HCPCS: 77063; 77067

== ENCOUNTER 2021-05-05 19:11 | Emergency (ER) | payer MEDICARE, SELFPAY ==
[2021-05-05 19:46] VITALS: BP 135/88; PULSE 59; RESP 19; TEMP 36.1; O2SAT 95; BMI 36.4
[2021-05-05 20:04] LABS: MANUAL DIFF FLAG NO
[2021-05-05 20:07] LABS: Basophils Absolute Auto 0.1 X10*3/uL (0.0-0.2); Basophils Percent Auto 0.5 % (0-2); Eosinophils Absolute Auto 0.2 X10*3/uL (0.0-0.4); Eosinophils Percent Auto 1.5 % (0-4); Hematocrit 40.6 % (37.0-47.0); Imm Gran Abs Auto 0.05 X10*3/uL (0.00-0.03); Imm Gran Pct Auto 0.5 % (0.0-0.4); Lymphocytes Absolute Auto 1.8 X10*3/uL (1.2-4.9); Mean Corpuscular Hemoglobin 29.1 pg (27.0-33.0); Mean Corpuscular Volume 90.8 fL (80.0-98.0); Mean Platelet Volume 10.4 fL (9.4-12.3); Monocytes Percent Auto 9.7 % (2-11); Neutrophils Absolute Auto 7.5 x10*3/uL (2.0-8.3); Neutrophils Percent Auto 70.8 % (45-73); Platelet Count 331 X10*3/uL (160-400); Red Blood Count 4.47 X10*6/uL (4.20-5.50); Red Cell Distribution Width 13.4 % (11.0-16.0); White Blood Count 10.6 X10*3/uL (4.8-10.8)
[2021-05-05 20:20] LABS: Anion Gap 15 (12-20); Blood Urea Nitrogen 34 mg/dL (9-16); Calcium 8.9 mg/dL (8.4-10.2); Carbon Dioxide 24 mmol/L (22-29); Chloride 107 mmol/L (96-108); Creatinine Clr Calc Pharmacy 35.6; Estimated Glomerular Filt Rate 31; Glucose Fasting 107 mg/dL (60-99); Potassium 4.7 mmol/L (3.3-5.1); Sodium 141 mmol/L (135-145)
[2021-05-05 22:30] LABS: Appearance Urine CLOUDY; Color Urine YELLOW; Glucose Urine UA NEG (NEG); Leukocyte Esterase Urine 3+ (NEG); Nitrite Urine NEG (NEG); Specific Gravity - Urine 1.025 (1.005-1.025); UACC Culture Trigger YES; Urine Blood TRACE (NEG); Urine Ketones 5 MG/DL (NEG); Urine Protein NEG (NEG-TRACE)
[2021-05-05 22:41] LABS: Bacteria Urine 1+ /LPF; RBC Urine 0-2 /HPF (0); Squamous Epithelial Cell Urine 1+ /LPF
--- NOTE | 2021-05-05 22:49 | ED.GENADULT ---
HPI - General Adult General Chief complaint: Back Pain/Injury Stated complaint: kidney pain Time Seen by Provider: 05/05/21 22:05 Source: patient Mode of arrival: wheelchair Limitations: no limitations History of Present Illness HPI narrative: Patient comes to the emergency room complaining of 2 days of bilateral back pain, cloudy urine, dysuria. Denies hematuria. Patient denies fever or chills. Denies nausea vomiting or diarrhea. Related Data Home Medications Medication Instructions Recorded Confirmed metformin 850 mg tablet 850 mg PO BID 06/23/20 04/13/21 quetiapine 100 mg tablet 100 mg PO BEDTIME 06/23/20 04/13/21 albuterol sulfate 90 mcg/actuation 1 inh INHALATION QID PRN 08/24/20 04/13/21 aerosol inhaler (ProAir HFA) fluticasone propionate 110 1 puff INHALATION BID 08/24/20 04/13/21 mcg/actuation HFA aerosol inhaler gabapentin 600 mg tablet 600 mg PO BID 08/24/20 04/13/21 aspirin 81 mg capsule 81 mg PO DAILY 01/21/21 04/13/21 fluoxetine 20 mg capsule 1 cap PO DAILY 01/21/21 04/13/21 glipizide 2.5 mg tablet, extended 1 tab PO DAILY 01/21/21 04/13/21 release 24 hr lisinopril 20 1 tab PO DAILY 01/21/21 04/13/21 mg-hydrochlorothiazide 25 mg tablet lancing device with lancets kit #1 ea 03/24/21 (Rebituch Delica Lanc Device) Previous Rx's Medication Instructions Recorded alcohol swabs (Alcohol Pads) 1 pad TOPICAL TID-QID PRN #100 ea 01/26/21 apixaban 5 mg tablet (Eliquis) 5 mg PO BID #60 tab 01/26/21 blood sugar diagnostic (FreeStyle #100 ea 01/26/21 Lite Strips) ertapenem 1 gram solution for 0.5 g IV DAILY #9 ea 01/26/21 injection (Invanz) insulin glargine 100 unit/mL (3 15 unit (0.15 mL) SUBCUT QAM #15 ml 01/26/21 mL) subcutaneous pen (Lantus Solostar U-100 Insulin) insulin lispro 100 unit/mL 2 unit (0.02 mL) SUBCUT TID #15 ml 01/26/21 subcutaneous pen (Humalog KwikPen (U-100) Insulin) lancets 28 gauge (FreeStyle #100 ea 01/26/21 Lancets) metoprolol tartrate 25 mg tablet 50 mg PO BID #60 tab 01/26/21 pen needle, diabetic 32 gauge x #50 ea 01/26/21 (Pen Needle) estradiol See Rx Instructions .ROUTE 3XW 30 03/24/21 Days #42.5 g sulfamethoxazole 800 1 tab PO BID 5 Days #10 tab 03/24/21 mg-trimethoprim 160 mg tablet (Bactrim DS) methenamine hippurate 1 gram 1 g PO ONCE 90 Days #90 tab 04/19/21 tablet (Hiprex) cefpodoxime 200 mg tablet 200 mg PO BID 10 Days #20 tab 05/05/21 phenazopyridine 100 mg tablet 100 mg PO TID #6 tab 05/05/21 Allergies Allergy/AdvReac Type Severity Reaction Status Date / Time atorvastatin [ATORVASTATIN] Allergy Intermediate SWELLING Verified 04/13/21 15:29 morphine [MORPHINE] Allergy Intermediate RASH Verified 04/13/21 15:29 zolpidem [From AMBIEN] AdvReac Intermediate SLEEP WALKS Verified 04/13/21 15:29 Review of Systems Review of Systems: Constitutional : No Weight loss, No Fever, No Chills, No Night Sweats, No Fatigue, No Malaise ENT/Mouth : No Hearing loss, No Ear Pain, No Nasal Congestion, No Sinus Pain, No Hoarseness, No sore throat, No Rhinorrhea, No Swallowing Difficulty Eyes: No Eye Pain, No Swelling, No Redness, No Foreign Body, No Discharge, No Vision Changes Cardiovascular : No Chest Pain, No SOB, No Dyspnea on Exertion, No Orthopnea, No Edema, No Palpitations Respiratory : No Cough, No Sputum, No Wheezing, No Smoke Exposure, No Dyspnea Gastrointestinal : No Nausea, No Vomiting, No Diarrhea, No Constipation, No abdominal Pain, No Hematochezia, No Melena Genitourinary : no irregular bleeding, complaining of dysuria and cloudy urine, complaining also of Urinary Frequency, No Hematuria, No Urinary Incontinence, No Urgency, complaining of mild bilateral Flank Pain, No Urinary Flow Changes, No Hesitancy Musculoskeletal : No joint pain, No Myalgias, No Joint Swelling Skin : No Skin Lesions, No rash Neuro : No Weakness, No Numbness, No Paresthesias, No Loss of Consciousness, No Dizziness, No Headache Psych : No Anxiety/Panic, No Depression, No SI/HI/AH/VH, No Social Issues, Heme/Lymph: No Bruising, No Bleeding,No Lymphadenopathy Endocrine : No Polyuria, No Polydipsia, No Temperature Intolerance [facility] Past Medical History Medical History Anxiety and depression Arthritis Asthma Atrial flutter Chronic pain Diabetes mellitus High cholesterol HTN (hypertension) Hyperglycemia Lateral malleolar fracture Limited mobility Multiple falls Myocardial infarction On anticoagulant therapy On beta lanette at home Urgency incontinence Surgical History H/O neck surgery History of cataract extraction History of cystoscopy History of heart artery stent Hx of cholecystectomy Hx of colonoscopy Family History Family History Father No problems noted. Mother Diabetes High blood pressure Stomach cancer Social History Social History Household Members: Family Housing: Apartment Are you a primary skin care specialist to a significant other at home: No Do you presently have visiting nurse or other home services: Yes (granddaughter (licensed practical nurse instructor), nursing services) Alcohol intake: current Alcohol intake frequency: does not drink Patient Tobacco Use Status: Former Tobacco user Quit Date: 2004 Tobacco use type: Cigarette Years Smoked: 30-40 years Second Hand Smoke Exposure: No Advance Directives: No Advance Directives Information Provided: Yes service: No Current occupational status: disabled Physical Exam ED Vital Signs: Vital Signs - 24 hr 05/05/21 19:46 Temperature 97 F Pulse Rate 59 Respiratory Rate 19 Blood Pressure 135/88 Pulse Oximetry 95 BMI result Body Mass Index 36.4 Const Other: Appearance: Alert. Oriented X3. No acute distress. Well-appearing Eyes: Pupils equal, round and reactive to light. ENT: Pharynx normal. Neck: Normal inspection. Neck supple. No lymph nodes noted. No crepitus CVS: Normal heart rate and rhythm. Pulses normal. Normal S1 and S2 Respiratory: No respiratory distress. Breath sounds normal. No Wheezing. No rales Abdomen: Soft and nontender. No rigidity. No distention. Back: Pain in the upper, middle and lower back, also CVA (diffuse back pain) Skin: Skin warm and dry. Normal skin color. Normal skin turgor. Extremities: No lower extremity edema. No Lacerations. No Rash Neuro: Oriented X 3. No motor deficit. No sensory deficit. Moving all extremities. No slurred speech. CN 2 through 12 grossly intact Psych: calm, cooperative, normal affect Course Course Course Narrative: Patient's physical exam is inconclusive, patient has diffuse back pain which is chronic, occasionally seems to have CVA tenderness. Given the patient has a UTI, will go ahead and treat for pyelonephritis. Patient is well-appearing, no fever or chills, no white blood cell count elevation, normal blood pressure. At this time, sepsis is not suspected. Patient was given 1 dose of IM ceftriaxone with lidocaine in the emergency room. Patient will continue p.o. treatment at home. I discussed with the patient that if she does not have any symptomatic improvement within the next 24 hours or if she has any new symptoms, she needs to return to the emergency room and likely be admitted Patient's creatinine is 1.64, which is a baseline Medical Decision Making Lab Data Result diagrams: 05/05/21 20:00 05/05/21 20:00 Labs: Lab Results 05/05/21 05/05/21 05/05/21 Range/Units 20:00 20:00 22:16 WBC 10.6 (4.8-10.8) X10*3/uL RBC 4.47 (4.20-5.50) X10*6/uL Hgb 13.0 (12.0-16.0) g/dl Hct 40.6 (37.0-47.0) % MCV 90.8 (80.0-98.0) fL MCH 29.1 (27.0-33.0) pg MCHC 32.0 (31.0-35.0) g/dl RDW 13.4 (11.0-16.0) % Plt Count 331 (160-400) X10*3/uL MPV 10.4 (9.4-12.3) fL Immature Gran % (Auto) 0.5 H (0.0-0.4) % Neut % (Auto) 70.8 (45-73) % Lymph % (Auto) 17.0 L (20-40) % [place] % (Auto) 9.7 (2-11) % Eos % (Auto) 1.5 (0-4) % Baso % (Auto) 0.5 (0-2) % Lymph # (Auto) 1.8 (1.2-4.9) X10*3/uL [place] # (Auto) 1.0 (0.1-1.2) X10*3/uL Eos # (Auto) 0.2 (0.0-0.4) X10*3/uL Baso # (Auto) 0.1 (0.0-0.2) X10*3/uL Abs Immat Gran (auto) 0.05 H (0.00-0.03) X10*3/uL Absolute Neuts (auto) 7.5 (2.0-8.3) x10*3/uL Absolute Nucleated RBC 0.000 (0.0-0.012) X10*3/uL Nucleated RBC % (auto) 0.0 (0.0-0.2) /100WBC Sodium 141 (135-145) mmol/L Potassium 4.7 (3.3-5.1) mmol/L Chloride 107 (96-108) mmol/L Carbon Dioxide 24 (22-29) mmol/L Anion Gap 15 (12-20) BUN 34 H (9-16) mg/dL Creatinine 1.64 H (0.5-1.4) mg/dL Estim Creat Clear Calc 35.6 Estimated GFR 31 Fasting Glucose 107 H (60-99) mg/dL Calcium 8.9 (8.4-10.2) mg/dL Urine Color YELLOW Urine Appearance CLOUDY Urine pH 6.0 (5.0-8.0) Ur Specific [place] 1.025 (1.005-1.025) Urine Protein NEG (NEG-TRACE) MG/DL Urine Glucose (UA) NEG (NEG) MG/DL Urine Ketones 5 (NEG) MG/DL Urine Blood TRACE (NEG) Urine Nitrite NEG (NEG) Ur Leukocyte Esterase 3+ H (NEG) Urine RBC 0-2 (0) /HPF Urine WBC 15-29 H (0-4) /HPF Ur Squamous Epith Cells 1+ /LPF Urine Bacteria 1+ /LPF Urine Yeast 2+ /HPF Discharge Plan Discharge Clinical Impression: Pyelonephritis Patient Disposition: Home, Self-Care Instructions: Kidney Infection (ED) Additional Instructions: Please follow-up with your primary care physician tomorrow. If you have any worsening or new symptoms, please return to the emergency room or call 911 Prescriptions: New cefpodoxime 200 mg tablet 200 mg PO BID 10 Days Qty: 20 0RF Rx Instructions: must administer with a meal/food phenazopyridine 100 mg tablet 100 mg PO TID Qty: 6 0RF No Action gabapentin 600 mg Tablet 600 mg PO BID 0RF albuterol sulfate [ProAir HFA] 90 mcg/actuation Hfa Aerosol Inhaler 1 inh INHALATION QID PRN (Reason: Wheezing) 0RF fluticasone propionate 110 mcg/actuation Hfa Aerosol Inhaler 1 puff INHALATION BID 0RF lisinopril-hydrochlorothiazide 20-25 mg tablet 1 tab PO DAILY 0RF aspirin 81 mg Capsule 81 mg PO DAILY 0RF fluoxetine 20 mg capsule 1 cap PO DAILY 0RF glipizide 2.5 mg tablet extended release 24 hr 1 tab PO DAILY 0RF ertapenem [Invanz] 1 gram Recon Soln 0.5 g IV DAILY Qty: 9 0RF Eliquis 5 mg Tablet 5 mg PO BID Qty: 60 0RF Lantus Solostar U-100 Insulin 100 unit/mL (3 mL) insulin pen 15 unit subcut QAM Qty: 15 0RF metoprolol tartrate 25 mg Tablet 50 mg PO BID Qty: 60 0RF Protocol: Hold for SBP/HR < HOLD for SBP < : 90 HOLD for HR < : 60 insulin lispro [Humalog KwikPen Insulin] 100 unit/mL insulin pen 2 unit subcut TID Qty: 15 0RF (DME) lancets [FreeStyle Lancets] 28 gauge misc See Rx Instructions .ROUTE .MEDSUPPLY Qty: 100 0RF Rx Instructions: As directed (DME) FreeStyle Lite Strips Strip See Rx Instructions .Route Qty: 100 0RF Rx Instructions: As directed (DME) pen needle, diabetic [Pen Needle] 32 gauge x 5/32 needle See Rx Instructions .Route Qty: 50 0RF Rx Instructions: As directed alcohol swabs [Alcohol Pads] Pads, Medicated 1 pad topical TID-QID PRN (Reason: dm) Qty: 100 0RF methenamine hippurate [Hiprex] 1 gram tablet 1 g PO ONCE 90 Days Qty: 90 1RF (DME) lancing device with lancets [[employer] Lanc Device] Kit See Rx Instructions ea .ROUTE .MEDSUPPLY Qty: 1 0RF Rx Instructions: As directed estradiol 0.01 % (0.1 mg/gram) cream See Rx Instructions .Route 3XW 30 Days Qty: 42.5 2RF Rx Instructions: pea-sized to urethra 3 times a week sulfamethoxazole-trimethoprim [Bactrim DS] 800-160 mg tablet 1 tab PO BID 5 Days Qty: 10 0RF Rx Instructions: Start medication 2 days before procedure and carry on for 2 days after procedure metformin 850 mg tablet 850 mg PO BID 0RF Hold Instructions: Resume on 02/02/21. Please repeat BMP before starting metformin. quetiapine 100 mg tablet 100 mg PO BEDTIME 0RF
[2021-05-05] MEDS: cefTRIAXone sodium 1 GM, Lidocaine HCl 1 % MPF 2.1 ML IM (22:58)
[2021-05-05] MEDS: Phenazopyridine HCL 100 MG TABLET PO (22:59)
== END 2021-05-05 23:06 | disposition home or self-care (01) ==
PROVIDERS: Emergency Provider Emergency Medicine
DX: N10 Acute pyelonephritis (principal); M54.50 Low back pain, unspecified; F17.210 Nicotine dependence, cigarettes, uncomplicated; Z71.6 Tobacco abuse counseling; Z79.899 Other long term (current) drug therapy
CPT/HCPCS: 36415; 80048; 81001; 85025; 87086; 87088; 96372; 99283; 99284; J0696

== ENCOUNTER → 2021-06-14 08:31 | Day surgery (SDC) | payer OTHER, SELFPAY ==
[2021-06-08 14:54] VITALS: BMI 38.7
--- NOTE | 2021-06-11 08:33 | HO.ANESPROP2 ---
Documented by User: Jenny Wang NP 06/11/21 08:36 HPI - Anesthesia Eval Consult details Narrative: 75yo F for Colonoscopy Eliquis for afib/flutter s/p cysto botox 04/2021 with TIVA PMFSH Active Problems Active Problems: All Active Problems (Updated 05/06/21 @ 00:01 by Background Daemon) Frequency of micturition (Acute) LETHA (acute kidney injury) (Acute) Acute UTI (Acute) Chronic UTI (urinary tract infection) (Acute) Urgency incontinence (Acute) Past Medical History Medical History Anxiety and depression Arthritis Asthma Atrial flutter Chronic pain Diabetes mellitus High cholesterol HTN (hypertension) Hyperglycemia Lateral malleolar fracture Limited mobility Multiple falls Myocardial infarction On anticoagulant therapy On beta lanette at home Urgency incontinence Family History Family History Father No problems noted. Mother Diabetes High blood pressure Stomach cancer Family history of problems with anesthesia: No Surgical History Surgical History H/O neck surgery History of cataract extraction History of cystoscopy History of heart artery stent Hx of cholecystectomy Hx of colonoscopy History of Problems with Anesthesia: No Social History Social History Household Members: Family Housing: Apartment Are you a primary field care advocate to a significant other at home: No Do you presently have visiting nurse or other home services: Yes ([employer] days 10-2 and nights 11-2) Alcohol intake: current Alcohol intake frequency: does not drink Patient Tobacco Use Status: Former Tobacco user Quit Date: 2004 Tobacco use type: Cigarette Years Smoked: 30-40 years Second Hand Smoke Exposure: No Have you been hit, kicked, punched, or otherwise hurt by someone within the past year? If so, by whom?: No Are you DNR?: No Advance Directives: No Advance Directives Information Provided: Yes Advance Directives on File: No service: No Current occupational status: disabled Meds Allergies Allergy/AdvReac Type Severity Reaction Status Date / Time atorvastatin [ATORVASTATIN] Allergy Intermediate SWELLING Verified 06/08/21 14:52 morphine [MORPHINE] Allergy Intermediate RASH Verified 06/08/21 14:52 zolpidem [From AMBIEN] AdvReac Intermediate SLEEP WALKS Verified 06/08/21 14:52 Home Medications Medication Instructions Recorded Confirmed Last Taken Type metformin 850 mg tablet 850 mg PO BID 06/23/20 04/13/21 01/19/21 10:00 History quetiapine 100 mg tablet 100 mg PO BEDTIME 06/23/20 06/08/21 Unknown History albuterol sulfate 90 mcg/actuation 1 inh INHALATION QID PRN 08/24/20 06/08/21 Unknown History aerosol inhaler (ProAir HFA) fluticasone propionate 110 1 puff INHALATION BID 08/24/20 06/08/21 01/20/21 13:00 History mcg/actuation HFA aerosol inhaler gabapentin 600 mg tablet 600 mg PO BID 08/24/20 06/08/21 01/20/21 09:00 History aspirin 81 mg capsule 81 mg PO DAILY 01/21/21 06/08/21 04/15/21 History fluoxetine 20 mg capsule 1 cap PO DAILY 01/21/21 06/08/21 Unknown History glipizide 2.5 mg tablet, extended 1 tab PO DAILY 01/21/21 06/08/21 01/19/21 History release 24 hr lisinopril 20 1 tab PO DAILY 01/21/21 06/08/21 Unknown History mg-hydrochlorothiazide 25 mg tablet lancing device with lancets kit #1 ea 03/24/21 Unknown History ([employer] DelCS-Keys Lanc Device) Exam Exam Date and Time: June 11, 2021 0833 Height,Weight and Vital Signs: Height 5 ft 3 in Weight 99.337 kg Narrative Narrative: EKG 01/2021 Vent. Rate : 088 BPM ? ? Atrial Rate : 000 BPM ?? P-R Int : 000 ms? QRS Dur : 076 ms ? ? QT Int : 382 ms ? ? ? P-R-T Axes : 000 037 069 degrees ?? QTc Int : 462 ms ? Atrial fibrillation Nonspecific T wave abnormality Abnormal ECG When compared with ECG of 21-JAN-2021 00:50, No significant change was found ECHO 01/2021 Conclusions: - Normal left ventricular size and systolic function.? - Normal right ventricular cavity size and systolic function.? ? Assessment and Plan Assessment Anesthesia Assessment: Chart Reviewed Final Anesthetic Review Family History of Problems with Anesthesia: No History of Problems with Anesthesia: No Documented by User: Eric العراقي MD 06/14/21 08:54 PMF Past Medical History Medical History Anxiety and depression Arthritis Asthma Atrial flutter Chronic pain Diabetes mellitus High cholesterol HTN (hypertension) Hyperglycemia Lateral malleolar fracture Limited mobility Multiple falls Myocardial infarction On anticoagulant therapy On beta lanette at home Urgency incontinence Family History Family History Father No problems noted. Mother Diabetes High blood pressure Stomach cancer Surgical History Surgical History H/O neck surgery History of cataract extraction History of cystoscopy History of heart artery stent Hx of cholecystectomy Hx of colonoscopy Social History Social History Household Members: Family Housing: Apartment Are you a primary field care advocate to a significant other at home: No Do you presently have visiting nurse or other home services: Yes ([employer] days 10-2 and nights 11-2) Alcohol intake: current Alcohol intake frequency: does not drink Patient Tobacco Use Status: Former Tobacco user Quit Date: 2004 Tobacco use type: Cigarette Years Smoked: 30-40 years Second Hand Smoke Exposure: No Have you been hit, kicked, punched, or otherwise hurt by someone within the past year? If so, by whom?: No Are you DNR?: No Advance Directives: No Advance Directives Information Provided: Yes Advance Directives on File: No service: No Current occupational status: disabled Meds Allergies Allergy/AdvReac Type Severity Reaction Status Date / Time atorvastatin [ATORVASTATIN] Allergy Intermediate SWELLING Verified 06/08/21 14:52 morphine [MORPHINE] Allergy Intermediate RASH Verified 06/08/21 14:52 zolpidem [From AMBIEN] AdvReac Intermediate SLEEP WALKS Verified 06/08/21 14:52 Home Medications Medication Instructions Recorded Confirmed Last Taken Type metformin 850 mg tablet 850 mg PO BID 06/23/20 04/13/21 01/19/21 10:00 History quetiapine 100 mg tablet 100 mg PO BEDTIME 06/23/20 06/08/21 Unknown History albuterol sulfate 90 mcg/actuation 1 inh INHALATION QID PRN 08/24/20 06/08/21 Unknown History aerosol inhaler (ProAir HFA) fluticasone propionate 110 1 puff INHALATION BID 08/24/20 06/08/21 01/20/21 13:00 History mcg/actuation HFA aerosol inhaler gabapentin 600 mg tablet 600 mg PO BID 08/24/20 06/08/21 01/20/21 09:00 History aspirin 81 mg capsule 81 mg PO DAILY 01/21/21 06/08/21 04/15/21 History fluoxetine 20 mg capsule 1 cap PO DAILY 01/21/21 06/08/21 Unknown History glipizide 2.5 mg tablet, extended 1 tab PO DAILY 01/21/21 06/08/21 01/19/21 History release 24 hr lisinopril 20 1 tab PO DAILY 01/21/21 06/08/21 Unknown History mg-hydrochlorothiazide 25 mg tablet lancing device with lancets kit #1 ea 03/24/21 Unknown History ([employer] DelCS-Keys Lanc Device) Exam Airway Mallampati Class: III TM Dist: >3cm Neck ROM: Full Loose/Missing/Broken Teeth: Yes (missing all upper teeth aand all lower back teeth) Heart: [id number] Lungs: cta b/l Assessment and Plan Assessment Anesthesia Assessment: Anesthesia Plan Discussed Final Anesthetic Review NPO: Yes ASA Class: III Final Preanesthetic Review: No Changes in Pt Med Stat, Meds/Allgs Chart Reviewed, Consent Obtained/Reviewed and Anes Risks/Benef Reviewed Patient Risk: Intermediate Procedure Risk: Intermediate Assessment/Block/Sedation in SS: Assess/Block/Sedation-SS Anesthetic Plan Anesthetic Plan: MAC: and Agree w/ Assess. and Plan Disposition: Standard PACU
[2021-06-14 08:47] VITALS: BP 134/63; PULSE 81; RESP 16; TEMP 36.1; O2SAT 97
[2021-06-14] MEDS: Lactated Ringers 1,000 ML 100 ML IVCONT (08:58)
[2021-06-14 09:01] LABS: Glucose, Whole Blood 130 mg/dL (60-115)
--- NOTE | 2021-06-14 09:21 | PC.NURSE ---
Addendum entered by Elizabeth Quiles RN 06/14/21 10:09: pt transported to ER with all belongings. Dr. Reis on phone with pt daughter. Report given to EDELMIRA Barlow RN. Addendum entered by Elizabeth Quiles RN 06/14/21 09:47: 12 lead EKG showing AFIB RVR. Dr العراقي gave MD report to ER. pt being transfered to ER for AFIB RVR rate control. Original Note: pt noted to have NSR with HR 80's upon arrival initial assessment. this rn noticed alarm on tele monitor showing increased HR 120-150's AFIB. pt has hx of AFIB on Eliquis held for 3 days per patient. pt resting comfortable in stretcher denies any chest pain, palpitations or light headedness/dizziness. pt states i feel fine . Dr. العراقي notified orders received for 12 lead EKG.
--- NOTE | 2021-06-14 09:25 | ECG_ITS ---
Test Reason : rhythm check Blood Pressure : / mmHG Vent. Rate : 129 BPM Atrial Rate : 000 BPM P-R Int : 000 ms QRS Dur : 066 ms QT Int : 298 ms P-R-T Axes : 000 041 -40 degrees QTc Int : 436 ms Atrial fibrillation with rapid ventricular response Nonspecific ST and T wave abnormality Abnormal ECG When compared with ECG of 21-JAN-2021 04:33, Non-specific change in ST segment in Inferior leads ST now depressed in Anterior leads Nonspecific T wave abnormality no longer evident in Lateral leads Referred By: Eric العراقي Electronically Signed By:LALIT RODRIGUEZ MD
== END ==
PROVIDERS: Visit Provider Internal Medicine
DX: Z12.11 Encounter for screening for malignant neoplasm of colon (principal); Z53.09 Procedure and treatment not carried out because of other contraindication; R94.31 Abnormal electrocardiogram [ECG] [EKG]; E11.9 Type 2 diabetes mellitus without complications; Z79.4 Long term (current) use of insulin
CPT/HCPCS: 82947; 93005

== ENCOUNTER 2021-06-14 10:08 | Emergency (ER) | payer OTHER, SELFPAY ==
--- NOTE | ~2021-06-14 | XR_ITS ---
EXAMINATION: XR CHEST CLINICAL INFORMATION: Atrial fibrillation COMPARISON: Previous chest x-ray June 2018 TECHNIQUE: Frontal view of the chest was obtained. FINDINGS: The cardiac silhouette is enlarged but stable. Hilar and mediastinal contours are unremarkable. The lungs are clear. There is no pleural effusion or pneumothorax. There are degenerative changes of the spine. There are postsurgical changes to the cervical spine. XR/XR chest 1V IMPRESSION: Stable enlargement of the cardiac silhouette. No evidence for acute disease in the chest.
[2021-06-14 10:10] VITALS: BP 125/73; PULSE 110; RESP 18; TEMP 37.1; O2SAT 100; BMI 48.4
--- NOTE | 2021-06-14 10:32 | ED_ITS ---
HPI - Arrhythmia/Palpitations General Chief Complaint: Arrhythmia/Palpitations Stated Complaint: Afib Time Seen by Provider: 06/14/21 10:24 Source: patient Mode of arrival: wheelchair Limitations: no limitations History of Present Illness HPI narrative: Patient comes to the emergency room from short-stay surgery. Patient was supposed to have a colonoscopy today. They sent the patient to the emergency room because patient was in AFib with RVR. Patient states that she is asymptomatic, patient does not have any palpitations, no shortness of breath, no chest pain. Patient states that she has not taking any of her medications for the last 3 days because she was instructed to do so by GI according to the heraclio ent. Patient usually takes metoprolol. Related Data Home Medications Medication Instructions Recorded Confirmed metformin 850 mg tablet 850 mg PO BID 06/23/20 04/13/21 quetiapine 100 mg tablet 100 mg PO BEDTIME 06/23/20 06/08/21 albuterol sulfate 90 mcg/actuation 1 inh INHALATION QID PRN 08/24/20 06/08/21 aerosol inhaler (ProAir HFA) fluticasone propionate 110 1 puff INHALATION BID 08/24/20 06/08/21 mcg/actuation HFA aerosol inhaler gabapentin 600 mg tablet 600 mg PO BID 08/24/20 06/08/21 aspirin 81 mg capsule 81 mg PO DAILY 01/21/21 06/08/21 fluoxetine 20 mg capsule 1 cap PO DAILY 01/21/21 06/08/21 glipizide 2.5 mg tablet, extended 1 tab PO DAILY 01/21/21 06/08/21 release 24 hr lisinopril 20 1 tab PO DAILY 01/21/21 06/08/21 mg-hydrochlorothiazide 25 mg tablet lancing device with lancets kit #1 ea 03/24/21 ([employer] Lanc Device) Previous Rx's Medication Instructions Recorded alcohol swabs (Alcohol Pads) 1 pad TOPICAL TID-QID PRN #100 ea 01/26/21 apixaban 5 mg tablet (Eliquis) 5 mg PO BID #60 tab 01/26/21 blood sugar diagnostic (FreeStyle #100 ea 01/26/21 Lite Strips) ertapenem 1 gram solution for 0.5 g IV DAILY #9 ea 01/26/21 injection (Invanz) insulin glargine 100 unit/mL (3 15 unit (0.15 mL) SUBCUT QAM #15 ml 01/26/21 mL) subcutaneous pen (Lantus Solostar U-100 Insulin) insulin lispro 100 unit/mL 2 unit (0.02 mL) SUBCUT TID #15 ml 01/26/21 subcutaneous pen (Humalog KwikPen (U-100) Insulin) lancets 28 gauge (FreeStyle #100 ea 01/26/21 Lancets) metoprolol tartrate 25 mg tablet 50 mg PO BID #60 tab 01/26/21 pen needle, diabetic 32 gauge x #50 ea 01/26/21 (Pen Needle) estradiol See Rx Instructions .ROUTE 3XW 30 03/24/21 Days #42.5 g sulfamethoxazole 800 1 tab PO BID 5 Days #10 tab 03/24/21 mg-trimethoprim 160 mg tablet (Bactrim DS) methenamine hippurate 1 gram 1 g PO ONCE 90 Days #90 tab 04/19/21 tablet (Hiprex) cefpodoxime 200 mg tablet 200 mg PO BID 10 Days #20 tab 05/05/21 phenazopyridine 100 mg tablet 100 mg PO TID #6 tab 05/05/21 Allergies Allergy/AdvReac Type Severity Reaction Status Date / Time atorvastatin [ATORVASTATIN] Allergy Intermediate SWELLING Verified 06/08/21 14:52 morphine [MORPHINE] Allergy Intermediate RASH Verified 06/08/21 14:52 zolpidem [From AMBIEN] AdvReac Intermediate SLEEP WALKS Verified 06/08/21 14:52 Review of Systems Review of Systems: Constitutional : No Weight loss, No Fever, No Chills, No Night Sweats, No Fatigue, No Malaise ENT/Mouth : No Hearing loss, No Ear Pain, No Nasal Congestion, No Sinus Pain, No Hoarseness, No sore throat, No Rhinorrhea, No Swallowing Difficulty Eyes: No Eye Pain, No Swelling, No Redness, No Foreign Body, No Discharge, No Vision Changes Cardiovascular : No Chest Pain, No SOB, No Dyspnea on Exertion, No Orthopnea, No Edema, No Palpitations Respiratory : No Cough, No Sputum, No Wheezing, No Smoke Exposure, No Dyspnea Gastrointestinal : No Nausea, No Vomiting, No Diarrhea, No Constipation, No abdominal Pain, No Hematochezia, No Melena Genitourinary : no irregular bleeding, No Dysuria, No Urinary Frequency, No Hematuria, No Urinary Incontinence, No Urgency, No Flank Pain, No Urinary Flow Changes, No Hesitancy Musculoskeletal : No joint pain, No Myalgias, No Joint Swelling Skin : No Skin Lesions, No rash Neuro : No Weakness, No Numbness, No Paresthesias, No Loss of Consciousness, No Dizziness, No Headache Psych : No Anxiety/Panic, No Depression, No SI/HI/AH/VH, No Social Issues, Heme/Lymph: No Bruising, No Bleeding,No Lymphadenopathy Endocrine : No Polyuria, No Polydipsia, No Temperature Intolerance [facility] Past Medical History Medical History Anxiety and depression Arthritis Asthma Atrial flutter Chronic pain Diabetes mellitus High cholesterol HTN (hypertension) Hyperglycemia Lateral malleolar fracture Limited mobility Multiple falls Myocardial infarction On anticoagulant therapy On beta lanette at home Urgency incontinence Surgical History H/O neck surgery History of cataract extraction History of cystoscopy History of heart artery stent Hx of cholecystectomy Hx of colonoscopy Family History Family History Father No problems noted. Mother Diabetes High blood pressure Stomach cancer Social History Social History Household Members: Family Housing: Apartment Are you a primary campground caretaker to a significant other at home: No Do you presently have visiting nurse or other home services: Yes ([employer] days 10- 2 and nights 11-2) Alcohol intake: current Alcohol intake frequency: does not drink Patient Tobacco Use Status: Former Tobacco user Quit Date: 2004 Tobacco use type: Cigarette Years Smoked: 30-40 years Second Hand Smoke Exposure: No Advance Directives: No Advance Directives Information Provided: No service: No Current occupational status: disabled Physical Exam Vital Signs: Vital Signs: Last Vital Signs Temp 97.8 F 06/14/21 12:58 Pulse 71 06/14/21 12:58 Resp 14 06/14/21 12:58 BP 160/64 H 06/14/21 12:58 Pulse Ox 97 06/14/21 12:58 BMI result Body Mass Index 48.4 Const: Other: Appearance: Alert. Oriented X3. No acute distress. Well appearing Eyes: Pupils equal, round and reactive to light. ENT: Pharynx normal. Neck: Normal inspection. Neck supple. No lymph nodes noted. No crepitus CVS: Irregularly regular, heart rate approximately 110, Pulses normal. Normal S1 and S2 Respiratory: No respiratory distress. Breath sounds normal. No Wheezing. No rales Abdomen: Soft and nontender. No rigidity. No distention. Skin: Skin warm and dry. Normal skin color. Normal skin turgor. Extremities: No lower extremity edema. No Lacerations. No Rash Neuro: Oriented X 3. No motor deficit. No sensory deficit. Moving all extremities. No slurred speech. CN 2 through 12 grossly intact Psych: calm, cooperative, normal affect Course Course Course Narrative: Patient has been metoprolol for 3 days. Patient will be given 2.5 mg of IV metoprolol. Labs pending. Patient is asymptomatic Patient's heart rate improved to 71, blood pressure 160/64. Troponin x2 negative. Patient is asymptomatic, has good p.o. intake. Patient asked to restart taking her normal medications. She needs to reschedule her colonoscopy with GI. MDM - Arrhythmia/Palpitations Lab Data Result diagrams: 06/14/21 10:47 06/14/21 10:47 Labs: Lab Results 06/14/21 06/14/21 06/14/21 Range/Units 10:47 10:47 10:47 WBC 9.7 (4.8-10.8) X10*3/uL RBC 4.50 (4.20-5.50) X10*6/uL Hgb 12.8 (12.0-16.0) g/dl Hct 41.1 (37.0-47.0) % MCV 91.3 (80.0-98.0) fL MCH 28.4 (27.0-33.0) pg MCHC 31.1 (31.0-35.0) g/dl RDW 13.6 (11.0-16.0) % Plt Count 334 (160-400) X10*3/uL MPV 10.0 (9.4-12.3) fL Immature Gran % (Auto) 0.3 (0.0-0.4) % Neut % (Auto) 72.6 (45-73) % Lymph % (Auto) 16.7 L (20-40) % Griggs % (Auto) 8.7 (2-11) % Eos % (Auto) 1.4 (0-4) % Baso % (Auto) 0.3 (0-2) % Lymph # (Auto) 1.6 (1.2-4.9) X10*3/uL Griggs # (Auto) 0.9 (0.1-1.2) X10*3/uL Eos # (Auto) 0.1 (0.0-0.4) X10*3/uL Baso # (Auto) 0.0 (0.0-0.2) X10*3/uL Abs Immat Gran (auto) 0.03 (0.00-0.03) X10*3/uL Absolute Neuts (auto) 7.1 (2.0-8.3) x10*3/uL Absolute Nucleated RBC 0.000 (0.0-0.012) X10*3/uL Nucleated RBC % (auto) 0.0 (0.0-0.2) /100WBC Sodium 143 (135-145) mmol/L Potassium 4.4 (3.3-5.1) mmol/L Chloride 110 H (96-108) mmol/L Carbon Dioxide 23 (22-29) mmol/L Anion Gap 14 (12-20) BUN 23 H (9-16) mg/dL Creatinine 1.52 H (0.5-1.4) mg/dL Estim Creat Clear Calc 36.1 Estimated GFR 34 Random Glucose 115 (60-115) mg/dL Calcium 9.0 (8.4-10.2) mg/dL Total Bilirubin 0.8 (0.0-1.0) mg/dL Direct Bilirubin 0.2 (0.0-0.5) mg/dL AST 13 (5-31) U/L ALT 12 (0-31) U/L Alkaline Phosphatase 104 (39-117) U/L Troponin I High Sens 17.6 H D (<3.5-17.0) ng/L B-Natriuretic Peptide 311 H (<100) pg/mL Total Protein 7.2 (6.5-8.0) g/dL Albumin 3.7 (3.5-5.0) g/dL 05/02/22 Range/Units 13:02 WBC (4.8-10.8) X10*3/uL RBC (4.20-5.50) X10*6/uL Hgb (12.0-16.0) g/dl Hct (37.0-47.0) % MCV (80.0-98.0) fL MCH (27.0-33.0) pg MCHC (31.0-35.0) g/dl RDW (11.0-16.0) % Plt Count (160-400) X10*3/uL MPV (9.4-12.3) fL Immature Gran % (Auto) (0.0-0.4) % Neut % (Auto) (45-73) % Lymph % (Auto) (20-40) % Griggs % (Auto) (2-11) % Eos % (Auto) (0-4) % Baso % (Auto) (0-2) % Lymph # (Auto) (1.2-4.9) X10*3/uL Griggs # (Auto) (0.1-1.2) X10*3/uL Eos # (Auto) (0.0-0.4) X10*3/uL Baso # (Auto) (0.0-0.2) X10*3/uL Abs Immat Gran (auto) (0.00-0.03) X10*3/uL Absolute Neuts (auto) (2.0-8.3) x10*3/uL Absolute Nucleated RBC (0.0-0.012) X10*3/uL Nucleated RBC % (auto) (0.0-0.2) /100WBC Sodium (135-145) mmol/L Potassium (3.3-5.1) mmol/L Chloride (96-108) mmol/L Carbon Dioxide (22-29) mmol/L Anion Gap (12-20) BUN (9-16) mg/dL Creatinine (0.5-1.4) mg/dL Estim Creat Clear Calc Estimated GFR Random Glucose (60-115) mg/dL Calcium (8.4-10.2) mg/dL Total Bilirubin (0.0-1.0) mg/dL Direct Bilirubin (0.0-0.5) mg/dL AST (5-31) U/L ALT (0-31) U/L Alkaline Phosphatase (39-117) U/L Troponin I High Sens 14.6 (<3.5-17.0) ng/L B-Natriuretic Peptide (<100) pg/mL Total Protein (6.5-8.0) g/dL Albumin (3.5-5.0) g/dL Imaging Data Chest x-ray: Radiologist's impression: The cardiac silhouette is enlarged but stable. Hilar and mediastinal contours are unremarkable. The lungs are clear. There is no pleural effusion or pneumothorax. There are degenerative changes of the spine. There are postsurgical changes to the cervical spine. XR/XR chest 1V IMPRESSION: Stable enlargement of the cardiac silhouette. No evidence for acute disease in the chest. Discharge Plan Discharge Clinical Impression: Atrial fibrillation with RVR Patient Disposition: Home, Self-Care Instructions: A-fib (Atrial Fibrillation) (ED) Additional Instructions: Please follow-up with your primary care physician tomorrow. 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 If you have any worsening or new symptoms, please return to the emergency room or call 911 Prescriptions: No Action gabapentin 600 mg Tablet 600 mg PO BID 0RF albuterol sulfate [ProAir HFA] 90 mcg/actuation Hfa Aerosol Inhaler 1 inh INHALATION QID PRN (Reason: Wheezing) 0RF fluticasone propionate 110 mcg/actuation Hfa Aerosol Inhaler 1 puff INHALATION BID 0RF cefpodoxime 200 mg tablet 200 mg PO BID 10 Days Qty: 20 0RF Rx Instructions: must administer with a meal/food phenazopyridine 100 mg tablet 100 mg PO TID Qty: 6 0RF lisinopril-hydrochlorothiazide 20-25 mg tablet 1 tab PO DAILY 0RF aspirin 81 mg Capsule 81 mg PO DAILY 0RF fluoxetine 20 mg capsule 1 cap PO DAILY 0RF glipizide 2.5 mg tablet extended release 24 hr 1 tab PO DAILY 0RF ertapenem [Invanz] 1 gram Recon Soln 0.5 g IV DAILY Qty: 9 0RF Eliquis 5 mg Tablet 5 mg PO BID Qty: 60 0RF Lantus Solostar U-100 Insulin 100 unit/mL (3 mL) insulin pen 15 unit subcut QAM Qty: 15 0RF metoprolol tartrate 25 mg Tablet 50 mg PO BID Qty: 60 0RF Protocol: Hold for SBP/HR < HOLD for SBP < : 90 HOLD for HR < : 60 insulin lispro [Humalog KwikPen Insulin] 100 unit/mL insulin pen 2 unit subcut TID Qty: 15 0RF (DME) lancets [FreeStyle Lancets] 28 gauge misc See Rx Instructions .ROUTE .MEDSUPPLY Qty: 100 0RF Rx Instructions: As directed (DME) FreeStyle Lite Strips Strip See Rx Instructions .Route Qty: 100 0RF Rx Instructions: As directed (DME) pen needle, diabetic [Pen Needle] 32 gauge x 5/32 needle See Rx Instructions .Route Qty: 50 0RF Rx Instructions: As directed alcohol swabs [Alcohol Pads] Pads, Medicated 1 pad topical TID-QID PRN (Reason: dm) Qty: 100 0RF methenamine hippurate [Hiprex] 1 gram tablet 1 g PO ONCE 90 Days Qty: 90 1RF (DME) lancing device with lancets [[employer] Lanc Device] Kit See Rx Instructions ea .ROUTE .MEDSUPPLY Qty: 1 0RF Rx Instructions: As directed estradiol 0.01 % (0.1 mg/gram) cream See Rx Instructions .Route 3XW 30 Days Qty: 42.5 2RF Rx Instructions: pea-sized to urethra 3 times a week sulfamethoxazole-trimethoprim [Bactrim DS] 800-160 mg tablet 1 tab PO BID 5 Days Qty: 10 0RF Rx Instructions: Start medication 2 days before procedure and carry on for 2 days after procedure metformin 850 mg tablet 850 mg PO BID 0RF Hold Instructions: Resume on 02/02/21. Please repeat BMP before starting metformin. quetiapine 100 mg tablet 100 mg PO BEDTIME 0RF
[2021-06-14] MEDS: Metoprolol Tartrate 5 MG/5 ML VIAL 2.5 MG IVPUSH (10:48)
[2021-06-14 10:53] LABS: MANUAL DIFF FLAG NO
[2021-06-14 10:58] LABS: Basophils Percent Auto 0.3 % (0-2); Eosinophils Absolute Auto 0.1 X10*3/uL (0.0-0.4); Eosinophils Percent Auto 1.4 % (0-4); Hematocrit 41.1 % (37.0-47.0); Hemoglobin 12.8 g/dl (12.0-16.0); Imm Gran Abs Auto 0.03 X10*3/uL (0.00-0.03); Imm Gran Pct Auto 0.3 % (0.0-0.4); Lymphocytes Absolute Auto 1.6 X10*3/uL (1.2-4.9); Lymphocytes Percent Auto 16.7 % (20-40); Mean Corpuscular HGB Conc 31.1 g/dl (31.0-35.0); Mean Corpuscular Hemoglobin 28.4 pg (27.0-33.0); Mean Corpuscular Volume 91.3 fL (80.0-98.0); Monocytes Absolute Auto 0.9 X10*3/uL (0.1-1.2); Monocytes Percent Auto 8.7 % (2-11); Neutrophils Absolute Auto 7.1 x10*3/uL (2.0-8.3); Neutrophils Percent Auto 72.6 % (45-73); Platelet Count 334 X10*3/uL (160-400); Red Cell Distribution Width 13.6 % (11.0-16.0); White Blood Count 9.7 X10*3/uL (4.8-10.8)
[2021-06-14 11:11] LABS: Alanine Aminotransferase 12 U/L (0-31); Albumin Level 3.7 g/dL (3.5-5.0); Alkaline Phosphatase 104 U/L (39-117); Anion Gap 14 (12-20); Aspartate Amino Transferase 13 U/L (5-31); Bilirubin Direct 0.2 mg/dL (0.0-0.5); Bilirubin Total 0.8 mg/dL (0.0-1.0); Blood Urea Nitrogen 23 mg/dL (9-16); Carbon Dioxide 23 mmol/L (22-29); Chloride 110 mmol/L (96-108); Creatinine Clr Calc Pharmacy 36.1; Estimated Glomerular Filt Rate 34; Glucose Random 115 mg/dL (60-115); Potassium 4.4 mmol/L (3.3-5.1); Sodium 143 mmol/L (135-145); Total Protein 7.2 g/dL (6.5-8.0)
[2021-06-14 11:15] LABS: B Type Natriuretic Peptide 311 pg/mL (<100); Troponin-I High Sensitivity 17.6 ng/L (<3.5-17.0)
[2021-06-14 11:29] VITALS: BP 142/74; PULSE 67; RESP 15; TEMP 36.7; O2SAT 98
[2021-06-14 12:58] VITALS: BP 160/64; PULSE 71; RESP 14; TEMP 36.6; O2SAT 97
[2021-06-14 13:39] LABS: Troponin-I High Sensitivity 14.6 ng/L (<3.5-17.0)
--- NOTE | 2021-06-14 14:18 | ECG_ITS ---
Test Reason : ARRHYTHMIA Blood Pressure : / mmHG Vent. Rate : 115 BPM Atrial Rate : 000 BPM P-R Int : 000 ms QRS Dur : 066 ms QT Int : 344 ms P-R-T Axes : 000 036 -18 degrees QTc Int : 475 ms Atrial fibrillation with rapid ventricular response Low voltage QRS Nonspecific ST and T wave abnormality Abnormal ECG When compared to the previous EKG of No significant changes seen Referred By: Sunshine Quiroz Electronically Signed By:LALIT RODRIGUEZ MD
== END 2021-06-14 14:22 | disposition home or self-care (01) ==
PROVIDERS: Emergency Provider Emergency Medicine
DX: I48.20 Chronic atrial fibrillation, unspecified (principal); R00.2 Palpitations; E11.9 Type 2 diabetes mellitus without complications; R06.02 Shortness of breath; Z79.4 Long term (current) use of insulin; Z79.899 Other long term (current) drug therapy; Z87.891 Personal history of nicotine dependence; Z79.01 Long term (current) use of anticoagulants; Z79.82 Long term (current) use of aspirin
CPT/HCPCS: 36415; 71045; 80048; 80076; 83880; 84484; 85025; 93005; 96374; 99284

== ENCOUNTER 2021-07-15 10:42 | Inpatient (IN) | payer OTHER, SELFPAY ==
[2021-07-15] VITALS (15 sets, daily range): BP systolic 71–147; BP diastolic 20–104; PULSE 61–116; RESP 16–20; TEMP 36.4–36.8; O2SAT 96–98; BMI 35.5
--- NOTE | ~2021-07-15 | CT_ITS ---
EXAMINATION: CT HEAD WITHOUT CONTRAST CLINICAL INFORMATION: Sudden onset dizziness extremity weakness right upper extremity weakness COMPARISON: CT head from 01/21/2021 TECHNIQUE: Contiguous axial imaging was performed from the skull base to vertex without intravenous administration of contrast. This CT examination was performed using dose optimization techniques as appropriate, variously including the following: *Automated exposure control *Adjustment of mA and/or kV according to patient size (this includes techniques or standardized protocols for targeted exams where dose is matched to indication/reason for exam; i.e. extremities or head) *Use of iterative reconstruction technique DLP: 1415 mGy-cm FINDINGS: There is no evidence of acute intracranial hemorrhage or territorial infarction. Chronic white matter small vessel ischemic changes. No abnormal mass effect or midline shift is seen. Mehta to white matter differentiation is well preserved. No extra-axial fluid collections are identified. The ventricles are normal in size. There is no abnormal attenuation within the brain parenchyma. The osseous structures and soft tissues are normal. The mastoid air cells and visualized portions of the paranasal sinuses are well aerated. CT/CT cervical spine wo con IMPRESSION: 1. No acute intracranial pathology. 2. Chronic white matter small vessel ischemic changes. EXAMINATION: Noncontrast CT scan of the cervical spine. INDICATION: Sudden onset dizziness extremity weakness right upper extremity weakness COMPARISON: CT cervical spine from 01/21/2021 TECHNIQUE: Helical, multidetector axial images were obtained from the occiput to the upper thorax. Coronal and sagittal reformats of the cervical spine were provided for interpretation. DLP: 1415 mGy-cm FINDINGS: No acute fractures or dislocations of the cervical spine are seen. Status post posterior spinal fusion of C2-C6 with intact spinal hardware. Straightening of normal cervical curvature. Ossification along the posterior spinous ligament. Moderate multilevel degenerative changes. Anatomic alignment and positioning of the vertebral bodies and posterior elements is noted. The atlantoaxial joint and craniovertebral articulations are normal without evidence of subluxation. There is no prevertebral soft tissue swelling. The thyroid gland and visualized portions of the lung apices and mediastinum are unremarkable. IMPRESSION: 1. No acute visible fracture or dislocation. 2. Status post posterior spinal fusion of C2-C6 with intact spinal hardware. 3. Straightening of normal cervical curvature. 4. Ossification along the posterior spinous ligament. 5. Moderate multilevel degenerative changes.
--- NOTE | ~2021-07-15 | XR_ITS ---
EXAMINATION: XR CHEST CLINICAL INFORMATION: Chest pain COMPARISON: 06/14/2021 TECHNIQUE: Frontal view of the chest was obtained. FINDINGS: The lungs are well expanded. There is no focal consolidation, edema, or effusion. No pneumothorax. The cardiomediastinal silhouette is within normal limits. No acute osseous abnormality. Degenerative changes of the shoulders. XR/XR chest 1V IMPRESSION: The visualized lungs are clear.
--- NOTE | ~2021-07-15 | XR_ITS ---
EXAMINATION: XR SHOULDER, RIGHT CLINICAL INFORMATION: Right shoulder pain with decreased range of motion COMPARISON: None TECHNIQUE: Three views of the right shoulder. FINDINGS: No fracture or dislocation. The glenohumeral joint is well aligned with mild degenerative change. Moderate hypertrophic degenerative changes of the acromioclavicular joint with subacromial spurring. The visualized lung is clear. The visualized ribs are intact. Partially visualized cervical fusion hardware. XR/XR shoulder RT min 2V IMPRESSION: No acute abnormality. Degenerative changes.
--- NOTE | ~2021-07-15 | US_ITS ---
EXAMINATION: US RETROPERITONEAL LIMITED (RENAL ONLY) CLINICAL INFORMATION: LETHA. COMPARISON: None TECHNIQUE: Multiple 2-D grayscale and color Doppler ultrasound images of the kidneys were obtained. FINDINGS: RIGHT KIDNEY: 11.7 x 6.0 x 5.4 cm (SAG x AP x TRV). Mild to moderate right hydronephrosis. A circumscribed hypoechoic partially exophytic lesion is seen in the upper pole measuring 4.7 x 4.3 x 4.0 cm. Color Doppler showed no abnormal vascular flow. LEFT KIDNEY: 10.7 x 6.1 x 4.8 cm (SAG x AP x TRV). Mild to moderate left hydronephrosis. Small interpolar hypoechoic interpolar focus measures 1.5 cm. Color Doppler showed no abnormal vascular flow. US/US renal BI IMPRESSION: 1. Mild to moderate hydronephrosis bilaterally. A causative abnormality is not identified on this study. 2. Hypoechoic foci in the kidneys bilaterally are nonspecific but demonstrate overall benign features. These could represent cysts. Given these findings, a CT urogram is recommended.
--- NOTE | 2021-07-15 11:34 | ECG_ITS ---
Test Reason : CHEST PAIN Blood Pressure : / mmHG Vent. Rate : 111 BPM Atrial Rate : 000 BPM P-R Int : 000 ms QRS Dur : 084 ms QT Int : 342 ms P-R-T Axes : 000 028 -09 degrees QTc Int : 465 ms Atrial fibrillation with rapid ventricular response Low voltage QRS Nonspecific T wave abnormality Abnormal ECG When compared with ECG of 14-JUN-2021 10:23, No significant change was found Referred By: Cass Pollack Electronically Signed By:LALIT RODRIGUEZ MD
--- NOTE | 2021-07-15 11:41 | ED_ITS ---
HPI - General Adult General Chief complaint: General Medical Stated complaint: WEAKNESS,R SHOULDER PAIN,NO INJURY Time Seen by Provider: 07/15/21 11:07 Source: patient, family and EMS Mode of arrival: EMS History of Present Illness HPI narrative: 76-year-old female wheelchair-bound with past medical history of anxiety, depression, asthma, AFib on Eliquis, diabetes, hyperlipidemia, hypertension, [place], brought in by ambulance for sudden onset room spinning dizziness around 9AM. Patient reports associated right neck and RUE pain/tingling, CP, SOB, bilateral LE weakness and slowed speech. Daughter reports chronic LE weakness however wor sen baseline. Denies falls/injury or trauma, vision change/loss, headache, abdominal pain, nausea/vomiting/diarrhea Patient is poor historian Onset (ago): hour(s) Related Data Home Medications Medication Instructions Recorded Confirmed albuterol sulfate 90 mcg/actuation 1 inh INHALATION QID PRN 08/24/20 07/15/21 aerosol inhaler (ProAir HFA) fluticasone propionate 110 1 puff INHALATION BID 08/24/20 07/15/21 mcg/actuation HFA aerosol inhaler gabapentin 600 mg tablet 600 mg PO BEDTIME 08/24/20 07/15/21 aspirin 81 mg capsule 81 mg PO DAILY 01/21/21 07/15/21 fluoxetine 20 mg capsule 1 cap PO DAILY 01/21/21 07/15/21 lisinopril 20 1 tab PO DAILY 01/21/21 07/15/21 mg-hydrochlorothiazide 25 mg tablet lancing device with lancets kit #1 ea 03/24/21 07/15/21 (Oneuch Delica Lanc Device) acetaminophen 325 mg tablet 650 mg PO Q6H PRN 07/15/21 07/15/21 gabapentin 400 mg capsule 1 cap PO TID 07/15/21 07/15/21 ibuprofen 200 mg tablet 400 mg PO Q6H PRN 07/15/21 07/15/21 insulin lispro 100 unit/mL 8 unit SUBCUT TIDAC 07/15/21 07/15/21 subcutaneous pen (Humalog KwikPen (U-100) Insulin) metoprolol tartrate 25 mg tablet 25 mg PO BID 07/15/21 07/15/21 quetiapine 300 mg tablet 300 mg PO BEDTIME 07/15/21 07/15/21 venlafaxine 37.5 mg 1 cap PO DAILY 07/15/21 07/15/21 capsule,extended release 24 hr venlafaxine 75 mg capsule,extended 1 cap PO DAILY 07/15/21 07/15/21 release 24 hr Previous Rx's Medication Instructions Recorded apixaban 5 mg tablet (Eliquis) 5 mg PO BID #60 tab 01/26/21 blood sugar diagnostic (FreeStyle #100 ea 01/26/21 Lite Strips) lancets 28 gauge (FreeStyle #100 ea 01/26/21 Lancets) pen needle, diabetic 32 gauge x #50 ea 01/26/2132 (Pen Needle) estradiol See Rx Instructions .ROUTE 3XW 30 03/24/21 Days #42.5 g methenamine hippurate 1 gram 1 g PO ONCE 90 Days #90 tab 04/19/21 tablet (Hiprex) Allergies Allergy/AdvReac Type Severity Reaction Status Date / Time atorvastatin [ATORVASTATIN] Allergy Intermediate SWELLING Verified 06/08/21 14:52 morphine [MORPHINE] Allergy Intermediate RASH Verified 06/08/21 14:52 zolpidem [From AMBIEN] AdvReac Intermediate SLEEP WALKS Verified 06/08/21 14:52 Review of Systems Review of Systems: Constitutional: No Fever, No Chills,No Fatigue, No Malaise ENT/Mouth:No Ear Pain, No Nasal Congestion, No Sinus Pain, No sore throat, No Rhinorrhea, No Swallowing Difficulty Eyes: No Eye Pain, No Swelling, No Redness, No Vision Changes Cardiovascular: + Chest Pain, + SOB, No Dyspnea on Exertion, No Orthopnea, No Edema, No Palpitations Respiratory: No Cough, No Sputum, No Dyspnea Gastrointestinal: No Nausea, No Vomiting, No Diarrhea, No Constipation, No Abdominal pain Genitourinary:No Dysuria, No Urinary Frequency, No Hematuria, No Urinary Incontinence/retention, No Urgency, No Flank Pain Musculoskeletal: + joint pain, No Myalgias, No Joint Swelling Skin: No Skin Lesions, No rash Neuro: + Weakness, No Numbness, + Paresthesias, No Loss of Consciousness, + Dizziness, No Headache Yes all other systems are reviewed and are negative Neurologic: Reports Abnormal speech present PMFSH Past Medical History Attestation statement: The following information was validated with the patient. Medical History Anxiety and depression Arthritis Asthma Atrial flutter Chronic pain Diabetes mellitus High cholesterol HTN (hypertension) Hyperglycemia Lateral malleolar fracture Limited mobility Multiple falls Myocardial infarction On anticoagulant therapy On beta lanette at home Urgency incontinence Surgical History H/O neck surgery History of cataract extraction History of cystoscopy History of heart artery stent Hx of cholecystectomy Hx of colonoscopy Family History Family History Father No problems noted. 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) Alcohol intake: current Alcohol intake frequency: does not drink Patient Tobacco Use Status: Former Tobacco user Quit Date: 2004 Tobacco use type: Cigarette Years Smoked: 30-40 years Second Hand Smoke Exposure: No Advance Directives: No Advance Directives Information Provided: No service: No Current occupational status: disabled Physical Exam ED Vital Signs: Vital Signs - 24 hr 07/15/21 11:03 07/15/21 12:35 07/15/21 12:53 Temperature 98 F Pulse Rate 112 H 116 H 100 Respiratory Rate 17 19 17 Blood Pressure 122/104 H 91/64 107/80 Pulse Oximetry 97 97 98 07/15/21 13:03 07/15/21 13:05 07/15/21 13:30 Temperature Pulse Rate 95 99 66 Respiratory Rate 17 Blood Pressure 96/68 106/75 121/68 Pulse Oximetry BMI result Body Mass Index 35.5 Const General: cooperative and no acute distress Orientation/consciousness: patient oriented x3 Limitations: no limitations HENMT Head: Yes normal to inspection and Yes atraumatic Ears: hearing grossly normal bilaterally General nose exam: Normal external nose present Face and sinus: Yes normal facial exam Mouth: Normal oral and palatal mucosa present Throat: Yes posterior oropharynx normal and Yes tonsils normal Eyes General: appearance normal, both eyes and all related structures Pupils: Equal, round and reactive pupils present EOM: EOMs intact bilaterally Neck Other: No midline cervical spinous tenderness. Right-sided paraspinal and right-sided trapezius muscle tenderness to palpation. Limited ROM of neck secondary to pain Neck: Yes normal visual inspection and Yes no meningeal signs Chest Chest palpation & inspection: normal inspection of the chest Resp Effort & Inspection: normal respiratory effort and no respiratory distress Auscultation: clear to auscultation bilaterally, no rales, no rhonchi and no wheezes Cardio Rate: regular rate and tachycardic Rhythm: abnormal rhythm Heart sounds: S1 normal heart sound present and S2 normal heart sound present GI Inspection: Yes normal to inspection Palpation (GI): Soft to palpation, nontender, no guarding and not rigid General: Yes no CVA tenderness Back/Spine/Pelvis Back: no CVA tenderness Skin Rashes: no rashes Wounds: no wounds Neuro Other: Slight weakness appreciated to RUE (most likely related to pain) +bilateral LE weakness/decresed ROM daughter reports this is acute on chronic/worse than baseline) General: patient oriented x3, tone normal, no meningeal signs and CN's II-XI intact bilaterally Cranial nerves: Yes Equal, round and reactive pupils present, Yes Bilaterally intact EOM present and Yes Nystagmus not present Speech: Abnormal speech present other (slowed) Gait exam (Neuro): Normal gait present Extrem Other: + right shoulder tender to palpation. Decreased ROM 2nd pain. Neurovascular intact distally. General: Yes normal to inspection Course Course Course Narrative: XR shoulder RT min 2V IMPRESSION: No acute abnormality. Degenerative changes. XR chest 1V IMPRESSION: The visualized lungs are clear. -mild leukocytosis of 11.3, + acute on chronic renal failure with a BUN of 69, creatinine of 3.68 >> likely from dehydration which suspected this is also contributing to dizziness -glucose is 211, no anion gap. Initial troponin 11.9 (has had elevated priors) > will obtain [address] head/brain wo con IMPRESSION: 1.? No acute intracranial pathology. 2.? Chronic white matter small vessel ischemic changes. CT cervical spine wo con IMPRESSION: 1.? No acute visible fracture or dislocation. 2.? Status post posterior spinal fusion of C2-C6 with intact spinal hardware. 3.? Straightening of normal cervical curvature. 4.? Ossification along the posterior spinous ligament. 5.? Moderate multilevel degenerative changes. -1249--heart rate bouncing between 103-113, BP soft > holding IV metoprolol at this time until can increase BP -1329--patient now in normal sinus rhythm, BP stable, heart rate in the 60s will obtain repeat EKG > patient admitted for further management Reevaluation(s) Reevaluation #1: Will repeat EKG normal sinus rhythm at a rate of 73. Pr interval 154. QTC 456. Low-voltage QRS. No STEMI Time: 13:35 Medical Decision Making MDM Narrative Medical decision making narrative: 76-year-old female wheelchair-bound with past medical history of anxiety, depression, asthma, AFib on Eliquis, diabetes, hyperlipidemia, hypertension, [place], brought in by ambulance for sudden onset room spinning dizziness around 9AM. Patient is poor historian. Patient reports associated right neck and RUE pain/tingling, CP, SOB, bilateral LE weakness and slowed speech. On exam hypertensive, tachycardic, EKG showing AFib w/RVR, lungs CTA, no midline cervical tenderness, right-sided paraspinal and right shoulder tenderness noted with decreased ROM to our UE secondary to pain/? Weakness. Bilateral LE weakness noted (acute on chronic). Concern for CVA vs ACS vs BPPV vs orthostasis vs metabolic/infectious etiologies. Lower concern for large vessel cervical occlusion/cervical dissection. Low concern for severe sepsis, tachycardia from arrhythmia Patient is not a candidate for tPA as is already on Eliquis Plan: EKG, labs, UA, CXR, head/C-spine CT, orthostatics, anticipated admission Medical Records Medical records reviewed: Yes I reviewed the patient's medical records. Lab Data Lab results reviewed: Yes I reviewed the patient's lab results. Result diagrams: 07/15/21 11:53 07/15/21 11:53 Labs: Lab Results 07/15/21 07/15/21 07/15/21 Range/Units 11:53 11:53 11:53 WBC 11.3 H (4.8-10.8) X10*3/uL RBC 4.81 (4.20-5.50) X10*6/uL Hgb 13.6 (12.0-16.0) g/dl Hct 43.8 (37.0-47.0) % MCV 91.1 (80.0-98.0) fL MCH 28.3 (27.0-33.0) pg MCHC 31.1 (31.0-35.0) g/dl RDW 13.7 (11.0-16.0) % Plt Count 319 (160-400) X10*3/uL MPV 10.4 (9.4-12.3) fL Immature Gran % (Auto) 0.4 (0.0-0.4) % Neut % (Auto) 73.8 H (45-73) % Lymph % (Auto) 17.4 L (20-40) % Glades % (Auto) 7.4 (2-11) % Eos % (Auto) 0.6 (0-4) % Baso % (Auto) 0.4 (0-2) % Lymph # (Auto) 2.0 (1.2-4.9) X10*3/uL Glades # (Auto) 0.8 (0.1-1.2) X10*3/uL Eos # (Auto) 0.1 (0.0-0.4) X10*3/uL Baso # (Auto) 0.1 (0.0-0.2) X10*3/uL Abs Immat Gran (auto) 0.05 H (0.00-0.03) X10*3/uL Absolute Neuts (auto) 8.3 (2.0-8.3) x10*3/uL Absolute Nucleated RBC 0.000 (0.0-0.012) X10*3/uL Nucleated RBC % (auto) 0.0 (0.0-0.2) /100WBC PT 15.5 H (9.9-13.0) SEC INR 1.4 H (0.9-1.1) APTT 39.9 H (24.1-38.0) SEC Sodium 139 (135-145) mmol/L Potassium 4.8 (3.3-5.1) mmol/L Chloride 104 (96-108) mmol/L Carbon Dioxide 21 L (22-29) mmol/L Anion Gap 19 (12-20) BUN 69 H D (9-16) mg/dL Creatinine 3.68 H (0.5-1.4) mg/dL Estim Creat Clear Calc 16.0 Estimated GFR 12 Random Glucose 211 H (60-115) mg/dL Calcium 8.7 (8.4-10.2) mg/dL Magnesium 2.5 (1.6-2.6) mg/dL Total Bilirubin 0.5 (0.0-1.0) mg/dL Direct Bilirubin 0.2 (0.0-0.5) mg/dL AST 9 (5-31) U/L ALT 10 (0-31) U/L Alkaline Phosphatase 95 (39-117) U/L Troponin I High Sens (<3.5-17.0) ng/L Total Protein 8.0 (6.5-8.0) g/dL Albumin 3.9 (3.5-5.0) g/dL COVID-19 (REE) (Negative) COVID-19 Clin Com 07/15/21 07/15/21 Range/Units 11:53 11:53 WBC (4.8-10.8) X10*3/uL RBC (4.20-5.50) X10*6/uL Hgb (12.0-16.0) g/dl Hct (37.0-47.0) % MCV (80.0-98.0) fL MCH (27.0-33.0) pg MCHC (31.0-35.0) g/dl RDW (11.0-16.0) % Plt Count (160-400) X10*3/uL MPV (9.4-12.3) fL Immature Gran % (Auto) (0.0-0.4) % Neut % (Auto) (45-73) % Lymph % (Auto) (20-40) % Glades % (Auto) (2-11) % Eos % (Auto) (0-4) % Baso % (Auto) (0-2) % Lymph # (Auto) (1.2-4.9) X10*3/uL Glades # (Auto) (0.1-1.2) X10*3/uL Eos # (Auto) (0.0-0.4) X10*3/uL Baso # (Auto) (0.0-0.2) X10*3/uL Abs Immat Gran (auto) (0.00-0.03) X10*3/uL Absolute Neuts (auto) (2.0-8.3) x10*3/uL Absolute Nucleated RBC (0.0-0.012) X10*3/uL Nucleated RBC % (auto) (0.0-0.2) /100WBC PT (9.9-13.0) SEC INR (0.9-1.1) APTT (24.1-38.0) SEC Sodium (135-145) mmol/L Potassium (3.3-5.1) mmol/L Chloride (96-108) mmol/L Carbon Dioxide (22-29) mmol/L Anion Gap (12-20) BUN (9-16) mg/dL Creatinine (0.5-1.4) mg/dL Estim Creat Clear Calc Estimated GFR Random Glucose (60-115) mg/dL Calcium (8.4-10.2) mg/dL Magnesium (1.6-2.6) mg/dL Total Bilirubin (0.0-1.0) mg/dL Direct Bilirubin (0.0-0.5) mg/dL AST (5-31) U/L ALT (0-31) U/L Alkaline Phosphatase (39-117) U/L Troponin I High Sens 11.9 (<3.5-17.0) ng/L Total Protein (6.5-8.0) g/dL Albumin (3.5-5.0) g/dL COVID-19 (REE) Negative (Negative) COVID-19 Clin Com See Note ECG Data Attestation: I personally reviewed and interpreted this ECG as follows: Prior ECG tracings: available for review Interpretation: EKG showing AFib with RVR at a rate of 111. QTC 465. No STEMI. Discharge Plan Discharge Clinical Impression: LETHA (acute kidney injury) Patient Disposition: Admitted As Inpatient
[2021-07-15 12:00] LABS: MANUAL DIFF FLAG NO
[2021-07-15 12:03] LABS: Basophils Absolute Auto 0.1 X10*3/uL (0.0-0.2); Basophils Percent Auto 0.4 % (0-2); Eosinophils Absolute Auto 0.1 X10*3/uL (0.0-0.4); Eosinophils Percent Auto 0.6 % (0-4); Hematocrit 43.8 % (37.0-47.0); Hemoglobin 13.6 g/dl (12.0-16.0); Imm Gran Abs Auto 0.05 X10*3/uL (0.00-0.03); Imm Gran Pct Auto 0.4 % (0.0-0.4); Lymphocytes Percent Auto 17.4 % (20-40); Mean Corpuscular HGB Conc 31.1 g/dl (31.0-35.0); Mean Corpuscular Hemoglobin 28.3 pg (27.0-33.0); Mean Corpuscular Volume 91.1 fL (80.0-98.0); Mean Platelet Volume 10.4 fL (9.4-12.3); Monocytes Absolute Auto 0.8 X10*3/uL (0.1-1.2); Monocytes Percent Auto 7.4 % (2-11); Neutrophils Absolute Auto 8.3 x10*3/uL (2.0-8.3); Neutrophils Percent Auto 73.8 % (45-73); Platelet Count 319 X10*3/uL (160-400); Red Blood Count 4.81 X10*6/uL (4.20-5.50); Red Cell Distribution Width 13.7 % (11.0-16.0); White Blood Count 11.3 X10*3/uL (4.8-10.8)
[2021-07-15 12:06] LABS: INTERNATIONAL NORM RATIO 1.4 (0.9-1.1); Prothrombin Time 15.5 SEC (9.9-13.0)
[2021-07-15 12:09] LABS: Partial Thromboplastin Time 39.9 SEC (24.1-38.0)
[2021-07-15] MEDS: 0.9 % Sodium Chloride 1,000 ML 999 ML IV ×2 (12:09→15:53)
[2021-07-15 12:23] LABS: Troponin-I High Sensitivity 11.9 ng/L (<3.5-17.0)
[2021-07-15 12:25] LABS: COVID-19 Test Negative (Negative); IDNOW Serial# 9DB6401D
[2021-07-15 12:26] LABS: Alanine Aminotransferase 10 U/L (0-31); Albumin Level 3.9 g/dL (3.5-5.0); Alkaline Phosphatase 95 U/L (39-117); Anion Gap 19 (12-20); Aspartate Amino Transferase 9 U/L (5-31); Bilirubin Direct 0.2 mg/dL (0.0-0.5); Bilirubin Total 0.5 mg/dL (0.0-1.0); Blood Urea Nitrogen 69 mg/dL (9-16); Calcium 8.7 mg/dL (8.4-10.2); Carbon Dioxide 21 mmol/L (22-29); Chloride 104 mmol/L (96-108); Estimated Glomerular Filt Rate 12; Glucose Random 211 mg/dL (60-115); Magnesium 2.5 mg/dL (1.6-2.6); Potassium 4.8 mmol/L (3.3-5.1); Sodium 139 mmol/L (135-145)
[2021-07-15] MEDS: Meclizine HCl 25 MG TABLET PO (12:34)
--- NOTE | 2021-07-15 12:37 | PC.NURSE ---
passed swallow eval, medicated as ordered, lopressor held due to bp, basilia aware, afib on monitor, nad
--- NOTE | 2021-07-15 12:41 | PHA.MEDREC ---
Pharmacy Consult ? Medication Reconciliation Pharmacy has completed the medication reconciliation. Patient reports taking Trulicity at home however there is no claim history. She reports she no longer takes Lantus. She reports using Humalog 8 units TID. She no longer takes any PO diabetes medications include metformin and glipizide. Patient also reported using venlafaxine PRN, however I left in the medication list as MARY CARMEN daily how it is prescribed. Azalea Fisher, PharmD
--- NOTE | 2021-07-15 13:29 | ECG_ITS ---
Test Reason : CHEST PAIN Blood Pressure : / mmHG Vent. Rate : 073 BPM Atrial Rate : 073 BPM P-R Int : 154 ms QRS Dur : 072 ms QT Int : 414 ms P-R-T Axes : 066 020 009 degrees QTc Int : 456 ms Normal sinus rhythm Low voltage QRS Nonspecific T wave abnormality Abnormal ECG When compared with ECG of 15-JUL-2021 11:08, Sinus rhythm has replaced Atrial fibrillation Vent. rate has decreased BY 38 BPM Nonspecific T wave abnormality now evident in Lateral leads Referred By: Cass Pollack Electronically Signed By:LALIT RODRIGUEZ MD
--- NOTE | 2021-07-15 14:30 | P.HPHOSP_ITS ---
History of Present Illness Date of Service: 07/15/21 Attending physician on admission: Kimberly Luu Chief Complaint: Dizziness 76-year-old female wheelchair-bound due to chronic lower extremity weakness with past medical history of atrial fibrillation on Eliquis, diabetes mellitus on insulin, hyperlipidemia, hypertension, chronic kidney disease, coronary artery disease woke up this morning was doing fine border tried helping her from wheelchair to the bathroom when she developed significant dizziness and felt as if she is standing and going to fall down daughter reassured that you are sitting but since patient continued to have feeling of dizziness and falling down daughter called the EMS, patient also complaned of right sided neck pain with radiation to right anterior chest and right upper extremity without recent fall or excessive use, she denied associated speech impairment no vision loss no headache, no associated nausea vomiting diarrhea, no urinary symptoms of urgency and frequency on arrival to the emergency room patient was noted to be in transient AFib with RVR and spontaneously converted to normal sinus rhythm without treatment patient orthostatic studies are within normal range, she was noted to have few low blood pressure readings, oxygenation is stable 98% on room air, initial ekg showed atrial fibrillation with ventricular rate in 1 teens, repeat EKG showed normal sinus rhythm, troponin normal , WBC 11.3 stable hemoglobin hematocrit and platelet count, creatinine 3.68, with last creatinine 06/14/2021 of 1.52 patient received 2 L of IV fluid in the emergency room currently feeling better denies dizziness, right arm and neck pain has also significantly improved patient will be admitted to [facility] for close monitoring and treatment of acute on chronic kidney disease stage 3. Review of Systems Review of Systems: General no headache , dizziness resolved, no fever chills. CVS no chest pain, no palpitation. Respiratory no cough, no sob. Gastrointestinal no nausea no vomiting, no abdominal pain no urinary urgency, no frequency chronic incontinence wear diapers Musculoskeletal chronic lower extremity weakness Yes all other systems are reviewed and are negative [facility] Medical History (Updated 07/15/21 @ 14:42 by Kimberly Luu MD) Anxiety and depression Arthritis Asthma Atrial flutter Chronic kidney disease, stage 3 Chronic pain Diabetes mellitus High cholesterol HTN (hypertension) Hyperglycemia Lateral malleolar fracture Limited mobility Multiple falls Myocardial infarction On anticoagulant therapy On beta lanette at home Urgency incontinence Family History Father No problems noted. Mother Diabetes High blood pressure Stomach cancer Surgical History H/O neck surgery History of cataract extraction History of cystoscopy History of heart artery stent Hx of cholecystectomy Hx of colonoscopy Social History Household Members: Family Housing: Apartment Are you a primary health care attorney to a significant other at home: No Do you presently have visiting nurse or other home services: Yes ([employer] days 10- 2 and nights 11-2) Alcohol intake: current Alcohol intake frequency: does not drink Patient Tobacco Use Status: Former Tobacco user Quit Date: 2004 Tobacco use type: Cigarette Years Smoked: 30-40 years Second Hand Smoke Exposure: No Advance Directives: No Advance Directives Information Provided: No service: No Current occupational status: disabled Meds Allergies Allergy/AdvReac Type Severity Reaction Status Date / Time atorvastatin [ATORVASTATIN] Allergy Intermediate SWELLING Verified 06/08/21 14:52 morphine [MORPHINE] Allergy Intermediate RASH Verified 06/08/21 14:52 zolpidem [From AMBIEN] AdvReac Intermediate SLEEP WALKS Verified 06/08/21 14:52 Active Medications: Current Medications Albuterol Sulfate (Albuterol Sulfate 90 Mcg 8 Gm Inhaler) 1 puff INHALE QID PRN PRN Reason: Wheezing Apixaban (Apixaban 5 Mg Tablet) 5 mg PO BID [facility] Aspirin (Aspirin Enteric Coated 81 Mg Tablet.Dr) 81 mg PO DAILY [facility] Fluoxetine HCl (Fluoxetine Hcl 20 Mg Capsule) 20 mg PO DAILY [facility] Fluticasone Propionate (Fluticasone Propionate 100 Mcg Blst.W.Dev) 1 puff INHALE RBID [facility] Gabapentin (Gabapentin 400 Mg Capsule) 400 mg PO TID [facility] Gabapentin (Gabapentin 600 Mg Tablet) 600 mg PO BEDTIME [facility] Metoprolol Tartrate (Metoprolol Tartrate 25 Mg Tablet) 25 mg PO BID [facility]; Protocol Pharmacy Consult (Consult Rx Perform Med Rec) 1 each MISCELLANE ONCE PRN PRN Reason: Consult order Quetiapine Fumarate (Quetiapine Fumarate 300 Mg Tablet) 300 mg PO BEDTIME [facility] Venlafaxine HCl (Venlafaxine Hcl Er 37.5 Mg Cap.Er.24h) 37.5 mg PO DAILY [facility] Venlafaxine HCl (Venlafaxine Hcl Er 75 Mg Cap.Er.24h) 75 mg PO DAILY [facility] Home Medications Medication Instructions Recorded Confirmed Last Taken Type albuterol sulfate 90 mcg/actuation 1 inh INHALATION QID PRN 08/24/20 07/15/21 07/14/21 History aerosol inhaler (ProAir HFA) fluticasone propionate 110 1 puff INHALATION BID 08/24/20 07/15/21 07/14/21 History mcg/actuation HFA aerosol inhaler gabapentin 600 mg tablet 600 mg PO BEDTIME 08/24/20 07/15/21 07/14/21 History aspirin 81 mg capsule 81 mg PO DAILY 01/21/21 07/15/21 07/14/21 History fluoxetine 20 mg capsule 1 cap PO DAILY 01/21/21 07/15/21 07/14/21 History lisinopril 20 1 tab PO DAILY 01/21/21 07/15/21 07/14/21 History mg-hydrochlorothiazide 25 mg tablet lancing device with lancets kit #1 ea 03/24/21 07/15/21 Unknown History (OneTouch Delica Lanc Device) acetaminophen 325 mg tablet 650 mg PO Q6H PRN 07/15/21 07/15/21 Unknown History gabapentin 400 mg capsule 1 cap PO TID 07/15/21 07/15/21 07/14/21 History ibuprofen 200 mg tablet 400 mg PO Q6H PRN 07/15/21 07/15/21 Unknown History insulin lispro 100 unit/mL 8 unit SUBCUT TIDAC 07/15/21 07/15/21 07/14/21 History subcutaneous pen (Humalog KwikPen (U-100) Insulin) metoprolol tartrate 25 mg tablet 25 mg PO BID 07/15/21 07/15/21 07/14/21 History quetiapine 300 mg tablet 300 mg PO BEDTIME 07/15/21 07/15/21 07/14/21 History venlafaxine 37.5 mg 1 cap PO DAILY 07/15/21 07/15/21 07/14/21 History capsule,extended release 24 hr venlafaxine 75 mg capsule,extended 1 cap PO DAILY 07/15/21 07/15/21 07/14/21 History release 24 hr Physical Exam Vital Signs and Narrative: Vital Signs: Last Vital Signs Temp 98 F 07/15/21 11:03 Pulse 66 07/15/21 13:30 Resp 17 07/15/21 13:30 BP 121/68 07/15/21 13:30 Pulse Ox 98 07/15/21 12:53 BMI result Body Mass Index 35.5 Const: Other: Constitutional - A wake and Alert, No apparent distress Eyes -? PERRLA, E ANAMARIA Neck no JVD Ca rdiovascular -?reg ular rate rhythm Respiratory - christine r to auscultation, Normal respirator y effort, No respi ratory distress Ga strointestinal -no n tender bowel sherine nds audible,No [place] ound or guarding G U - No CVA tendern ess Extremities - no calf tenderness bilaterally, no s welling Musculoske letal - right shou lder normal examin ation, no bruise l imited range of mo tion due to pain S kin - Warm/Dry Erik rological -? Alert & oriented x3,B/L UE strenght NL; l ower extremity 4/5 (unchanged per pa tient report) Psyc hological - Approp riate affect Results Labs CBC and Chem 7: 07/15/21 11:53 07/15/21 11:53 Labs: Laboratory Results - last 24 hr 07/15/21 07/15/21 07/15/21 11:53 11:53 11:53 MCV 91.1 MCH 28.3 MCHC 31.1 RDW 13.7 Plt Count 319 MPV 10.4 Immature Gran % (Auto) 0.4 Neut % (Auto) 73.8 H Lymph % (Auto) 17.4 L Russell % (Auto) 7.4 Eos % (Auto) 0.6 Baso % (Auto) 0.4 Lymph # (Auto) 2.0 Russell # (Auto) 0.8 Eos # (Auto) 0.1 Baso # (Auto) 0.1 Abs Immat Gran (auto) 0.05 H Absolute Neuts (auto) 8.3 Absolute Nucleated RBC 0.000 Nucleated RBC % (auto) 0.0 PT 15.5 H INR 1.4 H APTT 39.9 H Anion Gap 19 Estim Creat Clear Calc 16.0 Estimated GFR 12 Random Glucose 211 H Calcium 8.7 Magnesium 2.5 Total Bilirubin 0.5 Direct Bilirubin 0.2 AST 9 ALT 10 Alkaline Phosphatase 95 Troponin I High Sens Total Protein 8.0 Albumin 3.9 COVID-19 (REE) COVID-19 Clin Com 07/15/21 07/15/21 11:53 11:53 MCV MCH MCHC RDW Plt Count MPV Immature Gran % (Auto) Neut % (Auto) Lymph % (Auto) Russell % (Auto) Eos % (Auto) Baso % (Auto) Lymph # (Auto) Russell # (Auto) Eos # (Auto) Baso # (Auto) Abs Immat Gran (auto) Absolute Neuts (auto) Absolute Nucleated RBC Nucleated RBC % (auto) PT INR APTT Anion Gap Estim Creat Clear Calc Estimated GFR Random Glucose Calcium Magnesium Total Bilirubin Direct Bilirubin AST ALT Alkaline Phosphatase Troponin I High Sens 11.9 Total Protein Albumin COVID-19 (REE) Negative COVID-19 Clin Com See Note Imaging Radiologist's Impressions: Impressions Chest X-Ray 07/15/21 12:05 IMPRESSION: The visualized lungs are clear. Shoulder X-Ray 07/15/21 12:05 IMPRESSION: No acute abnormality. Degenerative changes. Cervical Spine CT 07/15/21 12:11 IMPRESSION: 1. No acute intracranial pathology. 2. Chronic white matter small vessel ischemic changes. EXAMINATION: Noncontrast CT scan of the cervical spine. INDICATION: Sudden onset dizziness extremity weakness right upper extremity weakness COMPARISON: CT cervical spine from 01/21/2021 TECHNIQUE: Helical, multidetector axial images were obtained from the occiput to the upper thorax. Coronal and sagittal reformats of the cervical spine were provided for interpretation. DLP: 1415 mGy-cm FINDINGS: No acute fractures or dislocations of the cervical spine are seen. Status post posterior spinal fusion of C2-C6 with intact spinal hardware. Straightening of normal cervical curvature. Ossification along the posterior spinous ligament. Moderate multilevel degenerative changes. Anatomic alignment and positioning of the vertebral bodies and posterior elements is noted. The atlantoaxial joint and craniovertebral articulations are normal without evidence of subluxation. There is no prevertebral soft tissue swelling. The thyroid gland and visualized portions of the lung apices and mediastinum are unremarkable. IMPRESSION: 1. No acute visible fracture or dislocation. 2. Status post posterior spinal fusion of C2-C6 with intact spinal hardware. 3. Straightening of normal cervical curvature. 4. Ossification along the posterior spinous ligament. 5. Moderate multilevel degenerative changes. Head CT 07/15/21 12:11 IMPRESSION: 1. No acute intracranial pathology. 2. Chronic white matter small vessel ischemic changes. EXAMINATION: Noncontrast CT scan of the cervical spine. INDICATION: Sudden onset dizziness extremity weakness right upper extremity weakness COMPARISON: CT cervical spine from 01/21/2021 TECHNIQUE: Helical, multidetector axial images were obtained from the occiput to the upper thorax. Coronal and sagittal reformats of the cervical spine were provided for interpretation. DLP: 1415 mGy-cm FINDINGS: No acute fractures or dislocations of the cervical spine are seen. Status post posterior spinal fusion of C2-C6 with intact spinal hardware. Straightening of normal cervical curvature. Ossification along the posterior spinous ligament. Moderate multilevel degenerative changes. Anatomic alignment and positioning of the vertebral bodies and posterior elements is noted. The atlantoaxial joint and craniovertebral articulations are normal without evidence of subluxation. There is no prevertebral soft tissue swelling. The thyroid gland and visualized portions of the lung apices and mediastinum are unremarkable. IMPRESSION: 1. No acute visible fracture or dislocation. 2. Status post posterior spinal fusion of C2-C6 with intact spinal hardware. 3. Straightening of normal cervical curvature. 4. Ossification along the posterior spinous ligament. 5. Moderate multilevel degenerative changes. Assessment and Plan (1) LETHA (acute kidney injury): Status: Acute (2) Dizziness: Status: Acute Plan 75 yo F with multiple medical problems who presents to the hospital after sustained mechanical falls over the last week. She is found to have LETHA, severe hyperglycemia, new onset a. fib and UTI. She will be admitted for further treatment. # Acute Kidney Injury Baseline SCr around 1.52, presented with creatinine of 3.68 Likely related to use of NSAIDs and combination of lisinopril/hydrochlorothiazide/low blood pressure, no acute fluid loss Received 2L IVF in the ED Continue LR @ 100 cc/hr Hold nephrotoxins, hold lisinopril and hydrochlorothiazide Follow BMP, history of urinary incontinence, obtain renal ultrasound rule out obstruction obtain nephrology consult /Monitor I/O # Paroxysmal atrial fibrillation initially rapid HR in the 100 range spontaneously converted to normal sinus rhythm Tele monitor,if recurrent obtain cardiology consult Continue metoprolol and Eliquis chads vascular score of 5 # dizziness resolved likely due to hypotension, AFib RVR orthostatic studies benign follow clinical course, CT head showed no acute intracranial pathology Chronic lower extremity weakness wheelchair-bound # right sided neck right shoulder and arm pain and tingling CT cervical spine showed no acute visible fractures or dislocation is status post spinal fusion C2 through C6 with intact spinal hardware Pain significantly improved use Tylenol as needed. # diabetes mellitus on pre meal insulin, blood sugar 211, will place on diabetic diet insulin sliding scale and follow blood sugars. #. CAD - s/p MA + Stenting No left-sided chest pain, normal troponin, EKG showed no ischemic change continue asa / statin and beta-lanette # depression continue home medication venlafaxine and Seroquel # code status Full Code # DVT prophylaxis on Eliquis Patient will need two in-patient night hospitalization due to acute on chronic kidney disease stage 3 , dizziness, AFib with RVR requiring further workup and treatment. Quality Stroke Does the patient have a stroke diagnosis?: No VTE Prior VTE?: No VTE Risk Level:: Medical - moderate - high VTE Device Contraindication: Treatment Not Indicated VTE Drug Contraindication: N/A - Med Ordered
[2021-07-15 15:11] LABS: Troponin-I High Sensitivity 9.7 ng/L (<3.5-17.0)
[2021-07-15] MEDS: Gabapentin 400 MG CAPSULE PO ×2 (15:58→20:06)
[2021-07-15 16:43] LABS: Glucose, Whole Blood 215 mg/dL (60-115)
[2021-07-15 17:41] LABS: Appearance Urine CLOUDY; Color Urine YELLOW; Glucose Urine UA NEG (NEG); Leukocyte Esterase Urine 3+ (NEG); Nitrite Urine NEG (NEG); UACC Culture Trigger YES; Urine Blood 2+ (NEG); Urine Ketones NEG (NEG); Urine Protein 1+ MG/DL (NEG-TRACE)
--- NOTE | 2021-07-15 17:49 | PC.NURSE ---
Patient alert and oriented x 3. Uzbek speaking patient. Patient does not walk, wheel chair bound. Patient denies any chest pain, sob, and dizziness. Patient bladder scanned for 492cc in bladder. Patient did not have the urge to void Dr. Luu notified and ordered a Solis catheter after renal ultrasound. Solis placed yellow cloudy urine. Urine culture sent. Called [facility]en to give report being transferred to overflow room 10.
[2021-07-15 17:50] LABS: Bacteria Urine 4+ /LPF; Squamous Epithelial Cell Urine 1+ /LPF
[2021-07-15] MEDS: Lactated Ringers 1,000 ML 80 ML IVCONT (18:42)
[2021-07-15] MEDS: cefTRIAXone sodium 1 GM in 0.9 % Sodium Chloride 50 ML IV (18:46)
[2021-07-15] MEDS: Gabapentin 600 MG TABLET PO (20:06)
[2021-07-15] MEDS: QUEtiapine Fumarate 300 MG TABLET PO (20:06)
[2021-07-15] MEDS: Apixaban 5 MG TABLET PO (20:06)
[2021-07-15 20:12] LABS: Glucose, Whole Blood 201 mg/dL (60-115)
[2021-07-15] MEDS: Insulin Lispro 100 UNIT/ML 3 ML VIAL SUBCUT (20:23)
[2021-07-15] MEDS: Metoprolol Tartrate 25 MG TABLET PO (21:38)
[2021-07-15] MEDS: 0.9 % Sodium Chloride Flush 3 ML SYRINGE IVFLUSH (23:56)
[2021-07-16] VITALS (7 sets, daily range): BP systolic 112–129; BP diastolic 57–92; PULSE 62–77; RESP 17–20; TEMP 36.2–37; O2SAT 92–99
[2021-07-16 06:29] LABS: Anion Gap 16 (12-20); Blood Urea Nitrogen 66 mg/dL (9-16); Calcium 8.4 mg/dL (8.4-10.2); Carbon Dioxide 20 mmol/L (22-29); Chloride 109 mmol/L (96-108); Creatinine Clr Calc Pharmacy 23.8; Estimated Glomerular Filt Rate 19; Glucose Random 166 mg/dL (60-115); Potassium 4.8 mmol/L (3.3-5.1); Sodium 140 mmol/L (135-145)
[2021-07-16 07:41] LABS: Glucose, Whole Blood 155 mg/dL (60-115)
[2021-07-16] MEDS: Insulin Lispro 100 UNIT/ML 3 ML VIAL SUBCUT ×3 (09:07→21:24)
[2021-07-16] MEDS: Metoprolol Tartrate 25 MG TABLET PO ×2 (09:10→21:24)
[2021-07-16] MEDS: FLUoxetine HCl 20 MG CAPSULE PO (09:10)
[2021-07-16] MEDS: Apixaban 5 MG TABLET PO ×2 (09:10→21:24)
[2021-07-16] MEDS: Venlafaxine HCl ER 75 MG CAP.ER.24H PO (09:10)
[2021-07-16] MEDS: Gabapentin 400 MG CAPSULE PO ×3 (09:10→21:24)
[2021-07-16] MEDS: Lactated Ringers 1,000 ML 80 ML IVCONT (09:11)
[2021-07-16] MEDS: Venlafaxine HCl ER 37.5 MG CAP.ER.24H PO (09:11)
[2021-07-16] MEDS: Aspirin Enteric Coated 81 MG TABLET.DR PO (09:11)
--- NOTE | 2021-07-16 10:09 | MHC.CM.PN ---
CM ATTEMPTED TO MEET W/PT HOWEVER PT SOUNDLY SLEEPING, CM TO REVISIT LATER IN SHIFT.
[2021-07-16 11:29] LABS: Glucose, Whole Blood 196 mg/dL (60-115)
--- NOTE | 2021-07-16 12:01 | P.PNIM_ITS ---
Subjective Subjective Date of Service: 07/16/21 Interval History: Feeling better this morning, has chronic urinary frequency and urgency being followed by Dr. Calhoun as outpatient, denies dizziness, no fevers, no chills, no other acute issues overnight Solis catheter with clear urine. Review of Systems [employer] no headache no dizziness CVS no chest pain, no palpitation Respiratory no cough, no sputum production Review of Systems: Yes all other systems are reviewed and are negative Physical Exam Vital Signs: Vital Signs: Last Vital Signs Temp 97.1 F 07/16/21 11:14 Pulse 62 07/16/21 11:14 Resp 18 07/16/21 11:14 BP 123/57 L 07/16/21 11:14 Pulse Ox 92 07/16/21 11:14 BMI result Body Mass Index 35.5 Const: Other: General awake alert x3,no acute distress. Neck no JVD. CVS regular rate rhythm, Respiratory lungs clear to auscultation, no respiratory distress, no wheeze, no rhonchi. Gastrointestinal abdomen soft, nontender, bowel sounds audible Extremities no edema. Back no CVA tenderness Neuro nonfocal Skin no rash Psych appropriate affect Objective Data Active Medications Acetaminophen (Acetaminophen 325 Mg Tablet) 650 mg PO Q6H PRN PRN Reason: Pain, Mild (Pain Scale 1-3) Albuterol Sulfate (Albuterol Sulfate 90 Mcg 8 Gm Inhaler) 1 puff INHALE QID PRN PRN Reason: Wheezing Apixaban (Apixaban 5 Mg Tablet) 5 mg PO BID [facility] Last Admin: 07/16/21 09:10 Dose: 5 mg Documented by: CARMELLA Aspirin (Aspirin Enteric Coated 81 Mg Tablet.) 81 mg PO DAILY [facility] Last Admin: 07/16/21 09:11 Dose: 81 mg Documented by: CARMELLA Dextrose (Dextrose 50 % 25 Gm/50 Ml Syringe) 25 gm IVPUSH Q15M PRN; Protocol PRN Reason: per Hypoglycemia Standing Ord. Fluoxetine HCl (Fluoxetine Hcl 20 Mg Capsule) 20 mg PO DAILY [facility] Last Admin: 07/16/21 09:10 Dose: 20 mg Documented by: CARMELLA Fluticasone Propionate (Fluticasone Propionate 100 Mcg Blst.W.Dev) 1 puff INH JORDY RBID [facility] Last Admin: 07/16/21 07:56 Dose: Not Given Documented by: LIV Non-Admin Reason: Med Not Available Gabapentin (Gabapentin 400 Mg Capsule) 400 mg PO TID [facility] Last Admin: 07/16/21 09:10 Dose: 400 mg Documented by: CARMELLA Gabapentin (Gabapentin 600 Mg Tablet) 600 mg PO BEDTIME [facility] Last Admin: 07/15/21 20:06 Dose: 600 mg Documented by: RUFINA Glucose (Glucose Gel 15 Gm Gel..Gram.) 15 gm PO Q15M PRN; Protocol PRN Reason: per Hypoglycemia Standing Ord. Ceftriaxone Sodium 1 gm/ (Sodium Chloride) 50 mls @ 100 mls/hr IV Q24H [facility] Last Infusion: 07/15/21 20:06 Dose: 0 mls/hr Documented by: RUFINA Lactated Ringer's (Lr) 1,000 mls @ 80 mls/hr IVCONT .[id number] [facility] Last Admin: 07/16/21 09:11 Dose: 80 mls/hr Documented by: CARMELLA Insulin Human Lispro (Insulin Lispro 100 Unit/Ml 3 Ml Vial) 0 unit SUBCUT QIDACHS [facility]; Protocol Last Admin: 07/16/21 11:41 Dose: 2 unit Documented by: CARMELLA Melatonin (Melatonin 3 Mg Tablet) 3 mg PO BEDTIME PRN PRN Reason: Insomnia Metoprolol Tartrate (Metoprolol Tartrate 25 Mg Tablet) 25 mg PO BID [facility]; Protocol Last Admin: 07/16/21 09:10 Dose: 25 mg Documented by: CARMELLA Ondansetron HCl (Ondansetron Hcl 4 Mg/2 Ml Vial) 4 mg IVPUSH Q8H PRN PRN Reason: Nausea and Vomiting Pharmacy Consult (Consult Rx Perform Med Rec) 1 each MISCELLANE ONCE PRN PRN Reason: Consult order Quetiapine Fumarate (Quetiapine Fumarate 300 Mg Tablet) 300 mg PO BEDTIME [facility] Last Admin: 07/15/21 20:06 Dose: 300 mg Documented by: RUFINA Sodium Chloride (0.9 % Sodium Chloride Flush 3 Ml Syringe) 3 ml IVFLUSH QSHIFT [facility] Last Admin: 07/16/21 09:10 Dose: Not Given Documented by: CARMELLA Non-Admin Reason: IV Running Venlafaxine HCl (Venlafaxine Hcl Er 37.5 Mg Cap.Er.24h) 37.5 mg PO DAILY [facility] Last Admin: 07/16/21 09:11 Dose: 37.5 mg Documented by: CARMELLA Venlafaxine HCl (Venlafaxine Hcl Er 75 Mg Cap.Er.24h) 75 mg PO DAILY [facility] Last Admin: 07/16/21 09:10 Dose: 75 mg Documented by: CARMELLA Labs CBC & Chem 7: 07/15/21 11:53 07/16/21 05:49 Labs: Laboratory Results - last 24 hr 07/15/21 07/15/21 07/15/21 11:53 11:53 11:53 MCV 91.1 MCH 28.3 MCHC 31.1 RDW 13.7 Plt Count 319 MPV 10.4 Immature Gran % (Auto) 0.4 Neut % (Auto) 73.8 H Lymph % (Auto) 17.4 L Oliver % (Auto) 7.4 Eos % (Auto) 0.6 Baso % (Auto) 0.4 Lymph # (Auto) 2.0 Oliver # (Auto) 0.8 Eos # (Auto) 0.1 Baso # (Auto) 0.1 Abs Immat Gran (auto) 0.05 H Absolute Neuts (auto) 8.3 Absolute Nucleated RBC 0.000 Nucleated RBC % (auto) 0.0 PT 15.5 H INR 1.4 H APTT 39.9 H Anion Gap 19 Estim Creat Clear Calc 16.0 Estimated GFR 12 POC Glucose Random Glucose 211 H Calcium 8.7 Magnesium 2.5 Total Bilirubin 0.5 Direct Bilirubin 0.2 AST 9 ALT 10 Alkaline Phosphatase 95 Troponin I High Sens Total Protein 8.0 Albumin 3.9 Urine Color Urine Appearance Urine pH Ur Specific [place] Urine Protein Urine Glucose (UA) Urine Ketones Urine Blood Urine Nitrite Ur Leukocyte Esterase Urine RBC Urine WBC Ur Squamous Epith Cells Urine Bacteria COVID-19 (REE) COVID-19 Clin Com 07/15/21 07/15/21 07/15/21 11:53 11:53 14:45 MCV MCH MCHC RDW Plt Count MPV Immature Gran % (Auto) Neut % (Auto) Lymph % (Auto) Oliver % (Auto) Eos % (Auto) Baso % (Auto) Lymph # (Auto) Oliver # (Auto) Eos # (Auto) Baso # (Auto) Abs Immat Gran (auto) Absolute Neuts (auto) Absolute Nucleated RBC Nucleated RBC % (auto) PT INR APTT Anion Gap Estim Creat Clear Calc Estimated GFR POC Glucose Random Glucose Calcium Magnesium Total Bilirubin Direct Bilirubin AST ALT Alkaline Phosphatase Troponin I High Sens 11.9 9.7 Total Protein Albumin Urine Color Urine Appearance Urine pH Ur Specific [place] Urine Protein Urine Glucose (UA) Urine Ketones Urine Blood Urine Nitrite Ur Leukocyte Esterase Urine RBC Urine WBC Ur Squamous Epith Cells Urine Bacteria COVID-19 (REE) Negative COVID-19 Clin Com See Note 07/15/21 07/15/21 07/15/21 16:28 17:31 20:09 MCV MCH MCHC RDW Plt Count MPV Immature Gran % (Auto) Neut % (Auto) Lymph % (Auto) Oliver % (Auto) Eos % (Auto) Baso % (Auto) Lymph # (Auto) Oliver # (Auto) Eos # (Auto) Baso # (Auto) Abs Immat Gran (auto) Absolute Neuts (auto) Absolute Nucleated RBC Nucleated RBC % (auto) PT INR APTT Anion Gap Estim Creat Clear Calc Estimated GFR POC Glucose 215 H 201 H Random Glucose Calcium Magnesium Total Bilirubin Direct Bilirubin AST ALT Alkaline Phosphatase Troponin I High Sens Total Protein Albumin Urine Color YELLOW Urine Appearance CLOUDY Urine pH 6.0 Ur Specific [place] 1.020 Urine Protein 1+ H Urine Glucose (UA) NEG Urine Ketones NEG Urine Blood 2+ H Urine Nitrite NEG Ur Leukocyte Esterase 3+ H Urine RBC 5-9 H Urine WBC 76-150 H Ur Squamous Epith Cells 1+ Urine Bacteria 4+ COVID-19 (REE) COVID-19 Clin Com 07/16/21 07/16/21 07/16/21 05:49 07:16 11:18 MCV MCH MCHC RDW Plt Count MPV Immature Gran % (Auto) Neut % (Auto) Lymph % (Auto) [place] % (Auto) Eos % (Auto) Baso % (Auto) Lymph # (Auto) Oliver # (Auto) Eos # (Auto) Baso # (Auto) Abs Immat Gran (auto) Absolute Neuts (auto) Absolute Nucleated RBC Nucleated RBC % (auto) PT INR APTT Anion Gap 16 Estim Creat Clear Calc 23.8 Estimated GFR 19 POC Glucose 155 H 196 H Random Glucose 166 H Calcium 8.4 Magnesium Total Bilirubin Direct Bilirubin AST ALT Alkaline Phosphatase Troponin I High Sens Total Protein Albumin Urine Color Urine Appearance Urine pH Ur Specific [place] Urine Protein Urine Glucose (UA) Urine Ketones Urine Blood Urine Nitrite Ur Leukocyte Esterase Urine RBC Urine WBC Ur Squamous Epith Cells Urine Bacteria COVID-19 (REE) COVID-19 Clin Com Microbiology Microbiology Results: Microbiology 07/15/21 17:43 Urine Culture - Preliminary Urine Catheterized - Solis Catheter Gram negative tanisha Assessment and Plan (1) Dizziness: Status: Acute (2) LETHA (acute kidney injury): Status: Acute (3) Acute UTI: Status: Acute Plan 75 yo F with multiple medical problems who presents to the hospital after an episode of dizziness, right neck , right anterior chest and arm pain she is found to have LETHA, severe hyperglycemia, new onset a. fib and UTI. She will be admitted for further treatment. # Acute on chronic kidney disease stage 3 Improving, creatinine down from 3.68 to 2.47, baseline creatinine 1.5 Likely related to renal obstruction, Renal ultrasound showed bilateral hydronephrosis/recent use of NSAIDs, on lisinopril and hydrochlorothiazide Solis catheter placed bladder scan 492 Will DC IV fluid continue Solis catheter at [place] Hold nephrotoxins, hold lisinopril and hydrochlorothiazide Follow BMP, obtain nephrology and Uro consult # UTI Noted to have significant urinary retention with difficulty voiding UA sig nificantly positive urine culture growing Gram-negative rods continue IV ceftriaxone follow final urine culture # Paroxysmal atrial fibrillation initially rapid HR in the 100 range spontaneously converted to normal sinus rhythm Continue metoprolol and Eliquis chads vascular score of 5, no recurrent episodes # dizziness resolved likely due to hypotension, AFib RVR, and UTI ?orthostatic studies benign follow clinical course, CT head showed no acute intracranial pathology ?Chronic lower extremity weakness wheelchair-bound # right sided neck right shoulder and arm pain and tingling CT cervical spine showed no acute visible fractures or dislocation is status post spinal fusion C2 through C6 with intact spinal hardware Pain improved use Tylenol as needed. # diabetes mellitus on pre meal insulin, blood sugar < 200, continue diabetic diet, insulin sliding scale and follow blood sugars. #. CAD - s/p VT + Stenting No left-sided chest pain, normal troponin, EKG showed no ischemic change continue asa / statin and beta-lanette # depression continue home medication venlafaxine and Seroquel # obesity weight reduction recommended # code status? Full Code # DVT prophylaxis on Eliquis Patient will need continued inpatient hospitalization due to acute on chronic kidney disease stage 3 , urinary retention, waiting for nephrology and Urology follow up . Quality Stroke Does the patient have a stroke diagnosis?: No VTE Prior VTE?: No VTE Risk Level:: Medical - moderate - high VTE Device Contraindication: Treatment Not Indicated VTE Drug Contraindication: N/A - Med Ordered
[2021-07-16 16:03] LABS: Glucose, Whole Blood 121 mg/dL (60-115)
--- NOTE | 2021-07-16 16:42 | PM.PNNEP ---
Subjective Subjective Date of Service: 07/16/21 Physical Exam Vital Signs: Vital Signs: Last Vital Signs Temp 97.1 F 07/16/21 11:14 Pulse 62 07/16/21 11:14 Resp 18 07/16/21 11:14 BP 123/57 L 07/16/21 11:14 Pulse Ox 92 07/16/21 11:14 BMI result Body Mass Index 35.5 Objective Data Labs CBC & Chem 7: 07/15/21 11:53 07/16/21 05:49 Labs: Laboratory Results - last 24 hr 07/15/21 07/15/21 07/15/21 16:28 17:31 20:09 Sodium Potassium Chloride Carbon Dioxide Anion Gap BUN Creatinine Estim Creat Clear Calc Estimated GFR POC Glucose 215 H 201 H Random Glucose Calcium Urine Color YELLOW Urine Appearance CLOUDY Urine pH 6.0 Ur Specific [place] 1.020 Urine Protein 1+ H Urine Glucose (UA) NEG Urine Ketones NEG Urine Blood 2+ H Urine Nitrite NEG Ur Leukocyte Esterase 3+ H Urine RBC 5-9 H Urine WBC 76-150 H Ur Squamous Epith Cells 1+ Urine Bacteria 4+ 07/16/21 07/16/21 07/16/21 05:49 07:16 11:18 Sodium 140 Potassium 4.8 Chloride 109 H Carbon Dioxide 20 L Anion Gap 16 BUN 66 H Creatinine 2.47 H Estim Creat Clear Calc 23.8 Estimated GFR 19 POC Glucose 155 H 196 H Random Glucose 166 H Calcium 8.4 Urine Color Urine Appearance Urine pH Ur Specific [place] Urine Protein Urine Glucose (UA) Urine Ketones Urine Blood Urine Nitrite Ur Leukocyte Esterase Urine RBC Urine WBC Ur Squamous Epith Cells Urine Bacteria 07/16/21 15:57 Sodium Potassium Chloride Carbon Dioxide Anion Gap BUN Creatinine Estim Creat Clear Calc Estimated GFR POC Glucose 121 H Random Glucose Calcium Urine Color Urine Appearance Urine pH Ur Specific [place] Urine Protein Urine Glucose (UA) Urine Ketones Urine Blood Urine Nitrite Ur Leukocyte Esterase Urine RBC Urine WBC Ur Squamous Epith Cells Urine Bacteria Microbiology Microbiology Results: Microbiology 07/15/21 17:43 Urine Catheterized - Solis Catheter Urine Culture - Preliminary Gram negative tanisha Assessment & Plan Time Spent With Patient Time: Total time spent is greater than 50% in coordination of care (as documented) at patient's floor/unit and/or counseling patient: Progress Note: Quality Stroke Does the patient have a stroke diagnosis?: No
--- NOTE | 2021-07-16 16:43 | PM.CNNEP ---
History of Present Illness Reason for Consult Consult date: 07/16/21 Reason for consult: LETHA Chief Complaint Chief complaint: Acute on chronic Kidney Disease Stage I History of Present Illness Narrative: 76-year-old female with past medical history of atrial fibrillation on Eliquis, diabetes mellitus on insulin, hyperlipidemia, hypertension, chronic kidney disease, and coronary artery disease who presented to [facility] for dizziness, near fall, and right sided neck pain with radiation the chest. In the ED, the patient was noted to be in transient AFib with RVR and spontaneously converted to normal sinus rhythm without treatment patient orthostatic studies are within normal range, she was noted to have few low blood pressure readings, oxygenation is stable 98% on room air, initial ekg showed atrial fibrillation with ventricular rate in 1 teens, repeat EKG showed normal sinus rhythm, troponin normal , WBC 11.3 stable hemoglobin hematocrit and platelet count, creatinine 3.68, with last creatinine 06/14/2021 of 1.52 patient received 2 L of IV fluid. ROS otherwise negative. Review of Systems Constitutional: Reports as per [facility] Past Medical History Medical History (Updated 07/15/21 @ 14:42 by Kimberly Luu MD) Anxiety and depression Arthritis Asthma Atrial flutter Chronic kidney disease, stage 3 Chronic pain Diabetes mellitus High cholesterol HTN (hypertension) Hyperglycemia Lateral malleolar fracture Limited mobility Multiple falls Myocardial infarction On anticoagulant therapy On beta lanette at home Urgency incontinence Family History Family History Father No problems noted. Mother Diabetes High blood pressure Stomach cancer Surgical History Surgical History H/O neck surgery History of cataract extraction History of cystoscopy History of heart artery stent Hx of cholecystectomy Hx of colonoscopy Social History Social History Household Members: None Housing: Apartment Are you a primary date night caregiver to a significant other at home: No Do you presently have visiting nurse or other home services: Yes Alcohol intake: current Alcohol intake frequency: does not drink Patient Tobacco Use Status: Former Tobacco user Quit Date: 2004 Tobacco use type: Cigarette Years Smoked: 30-40 years Second Hand Smoke Exposure: No service: No Current occupational status: disabled Meds Allergies Allergy/AdvReac Type Severity Reaction Status Date / Time atorvastatin [ATORVASTATIN] Allergy Intermediate SWELLING Verified 06/08/21 14:52 morphine [MORPHINE] Allergy Intermediate RASH Verified 06/08/21 14:52 zolpidem [From AMBIEN] AdvReac Intermediate SLEEP WALKS Verified 06/08/21 14:52 Active Medications: Current Medications Acetaminophen (Acetaminophen 325 Mg Tablet) 650 mg PO Q6H PRN PRN Reason: Pain, Mild (Pain Scale 1-3) Albuterol Sulfate (Albuterol Sulfate 90 Mcg 8 Gm Inhaler) 1 puff INHALE QID PRN PRN Reason: Wheezing Apixaban (Apixaban 5 Mg Tablet) 5 mg PO BID [facility] Last Admin: 07/16/21 09:10 Dose: 5 mg Documented by: Aspirin (Aspirin Enteric Coated 81 Mg Tablet.) 81 mg PO DAILY [facility] Last Admin: 07/16/21 09:11 Dose: 81 mg Documented by: Dextrose (Dextrose 50 % 25 Gm/50 Ml Syringe) 25 gm IVPUSH Q15M PRN; Protocol PRN Reason: per Hypoglycemia Standing Ord. Fluoxetine HCl (Fluoxetine Hcl 20 Mg Capsule) 20 mg PO DAILY [facility] Last Admin: 07/16/21 09:10 Dose: 20 mg Documented by: Fluticasone Propionate (Fluticasone Propionate 100 Mcg Blst.W.Dev) 1 puff INHALE RBID [facility] Last Admin: 07/16/21 07:56 Dose: Not Given Documented by: Gabapentin (Gabapentin 400 Mg Capsule) 400 mg PO TID [facility] Last Admin: 07/16/21 14:45 Dose: 400 mg Documented by: Gabapentin (Gabapentin 600 Mg Tablet) 600 mg PO BEDTIME [facility] Last Admin: 07/15/21 20:06 Dose: 600 mg Documented by: Glucose (Glucose Gel 15 Gm Gel..Gram.) 15 gm PO Q15M PRN; Protocol PRN Reason: per Hypoglycemia Standing Ord. Ceftriaxone Sodium 1 gm/ (Sodium Chloride) 50 mls @ 100 mls/hr IV Q24H [facility] Last Infusion: 07/15/21 20:06 Dose: Infused Documented by: Insulin Human Lispro (Insulin Lispro 100 Unit/Ml 3 Ml Vial) 0 unit SUBCUT QIDACHS [facility]; Protocol Last Admin: 07/16/21 11:41 Dose: 2 unit Documented by: Melatonin (Melatonin 3 Mg Tablet) 3 mg PO BEDTIME PRN PRN Reason: Insomnia Metoprolol Tartrate (Metoprolol Tartrate 25 Mg Tablet) 25 mg PO BID [facility]; Protocol Last Admin: 07/16/21 09:10 Dose: 25 mg Documented by: Ondansetron HCl (Ondansetron Hcl 4 Mg/2 Ml Vial) 4 mg IVPUSH Q8H PRN PRN Reason: Nausea and Vomiting Pharmacy Consult (Consult Rx Perform Med Rec) 1 each MISCELLANE ONCE PRN PRN Reason: Consult order Quetiapine Fumarate (Quetiapine Fumarate 300 Mg Tablet) 300 mg PO BEDTIME [facility] Last Admin: 07/15/21 20:06 Dose: 300 mg Documented by: Sodium Chloride (0.9 % Sodium Chloride Flush 3 Ml Syringe) 3 ml IVFLUSH QSHIFT [facility] Last Admin: 07/16/21 09:10 Dose: Not Given Documented by: Venlafaxine HCl (Venlafaxine Hcl Er 37.5 Mg Cap.Er.24h) 37.5 mg PO DAILY [facility] Last Admin: 07/16/21 09:11 Dose: 37.5 mg Documented by: Venlafaxine HCl (Venlafaxine Hcl Er 75 Mg Cap.Er.24h) 75 mg PO DAILY [facility] Last Admin: 07/16/21 09:10 Dose: 75 mg Documented by: Home Medications Medication Instructions Recorded Confirmed Last Taken Type albuterol sulfate 90 mcg/actuation 1 inh INHALATION QID PRN 08/24/20 07/15/21 07/14/21 History aerosol inhaler (ProAir HFA) fluticasone propionate 110 1 puff INHALATION BID 08/24/20 07/15/21 07/14/21 History mcg/actuation HFA aerosol inhaler gabapentin 600 mg tablet 600 mg PO BEDTIME 08/24/20 07/15/21 07/14/21 History aspirin 81 mg capsule 81 mg PO DAILY 01/21/21 07/15/21 07/14/21 History fluoxetine 20 mg capsule 1 cap PO DAILY 01/21/21 07/15/21 07/14/21 History lisinopril 20 1 tab PO DAILY 01/21/21 07/15/21 07/14/21 History mg-hydrochlorothiazide 25 mg tablet lancing device with lancets kit #1 ea 03/24/21 07/15/21 Unknown [facility] acetaminophen 325 mg tablet 650 mg PO Q6H PRN 07/15/21 07/15/21 Unknown History gabapentin 400 mg capsule 1 cap PO TID 07/15/21 07/15/21 07/14/21 History ibuprofen 200 mg tablet 400 mg PO Q6H PRN 07/15/21 07/15/21 Unknown History insulin lispro 100 unit/mL 8 unit SUBCUT TIDAC 07/15/21 07/15/21 07/14/21 History subcutaneous pen (Humalog KwikPen (U-100) Insulin) metoprolol tartrate 25 mg tablet 25 mg PO BID 07/15/21 07/15/21 07/14/21 History quetiapine 300 mg tablet 300 mg PO BEDTIME 07/15/21 07/15/21 07/14/21 History venlafaxine 37.5 mg 1 cap PO DAILY 07/15/21 07/15/21 07/14/21 History capsule,extended release 24 hr venlafaxine 75 mg capsule,extended 1 cap PO DAILY 07/15/21 07/15/21 07/14/21 History release 24 hr Physical Exam Vital Signs: Last Vital Signs Temp 97.1 F 07/16/21 11:14 Pulse 62 07/16/21 11:14 Resp 18 07/16/21 11:14 BP 123/57 L 07/16/21 11:14 Pulse Ox 92 07/16/21 11:14 BMI result Body Mass Index 35.5 Const General: no acute distress HEENT Head: Yes normocephalic Neck Neck: Yes no JVD Resp Auscultation: clear to auscultation bilaterally Cardio Jugular venous distension: no JVD Rate: regular rate Rhythm: regular rhythm Heart sounds: S1 normal heart sound present and S2 normal heart sound present GI Auscultation: normal bowel sounds Neuro General: tone normal and moves all extremities Extrem General: Yes no clubbing, cyanosis or edema Results Lab Results Result Diagrams: 07/15/21 11:53 07/16/21 05:49 Lab results: Chemistry 07/15/21 07/16/21 11:53 05:49 Sodium 139 140 Potassium 4.8 4.8 Carbon Dioxide 21 L 20 L BUN 69 H D 66 H Creatinine 3.68 H 2.47 H Calcium 8.7 8.4 Hematology 07/15/21 11:53 WBC 11.3 H Hgb 13.6 Plt Count 319 Urinalysis 07/15/21 17:31 Urine Color YELLOW Urine Appearance CLOUDY Urine pH 6.0 Ur Specific [place] 1.020 Urine Protein 1+ H Urine Glucose (UA) NEG Urine Ketones NEG Urine Blood 2+ H Urine Nitrite NEG Ur Leukocyte Esterase 3+ H Urine RBC 5-9 H Urine WBC 76-150 H Ur Squamous Epith Cells 1+ Assessment and Plan (1) LETHA (acute kidney injury): Status: Acute Plan #) LETHA, non-oliguric CKD at BL likely ~ 1.5-1.6 mg/dL Noted improvement. Urine studies added. Monitor uop. bladder scan q shift for retention Reported 5 days of nsaid use along with lisinopril-hctz combination pill. Renal US with mild to mod hydro b/l Suggest Urology be made aware. May be able to follow as outpatient. Avoidance of acei/arb, nsaids, IV contrast, renal dosing abx Nephrology will follow along with you. Thank you for this consult. Procedures Date of Service Date of Service: 07/16/21
[2021-07-16] MEDS: 0.9 % Sodium Chloride Flush 3 ML SYRINGE IVFLUSH (16:49)
[2021-07-16] MEDS: cefTRIAXone sodium 1 GM in 0.9 % Sodium Chloride 50 ML IV (19:35)
[2021-07-16] MEDS: Albuterol Sulfate 90 MCG 8 GM INHALER 1 PUFF INHALE (20:21)
[2021-07-16] MEDS: Fluticasone Propionate 100 MCG BLST.W.DEV 1 PUFF INHALE (20:21)
[2021-07-16 20:34] LABS: Glucose, Whole Blood 151 mg/dL (60-115)
[2021-07-16] MEDS: Gabapentin 600 MG TABLET PO (21:24)
[2021-07-16] MEDS: QUEtiapine Fumarate 300 MG TABLET PO (21:24)
[2021-07-17] VITALS (7 sets, daily range): BP systolic 100–133; BP diastolic 56–77; PULSE 57–89; RESP 17–19; TEMP 36.1–37; O2SAT 96–98
[2021-07-17] MEDS: 0.9 % Sodium Chloride Flush 3 ML SYRINGE IVFLUSH ×3 (01:03→16:50)
[2021-07-17 06:08] LABS: Hematocrit 35.2 % (37.0-47.0); Hemoglobin 10.8 g/dl (12.0-16.0); Mean Corpuscular HGB Conc 30.7 g/dl (31.0-35.0); Mean Corpuscular Hemoglobin 28.4 pg (27.0-33.0); Mean Corpuscular Volume 92.6 fL (80.0-98.0); Mean Platelet Volume 10.9 fL (9.4-12.3); Platelet Count 294 X10*3/uL (160-400); Red Cell Distribution Width 13.9 % (11.0-16.0); White Blood Count 8.7 X10*3/uL (4.8-10.8)
[2021-07-17 06:42] LABS: Anion Gap 15 (12-20); Blood Urea Nitrogen 65 mg/dL (9-16); Calcium 8.3 mg/dL (8.4-10.2); Carbon Dioxide 20 mmol/L (22-29); Chloride 109 mmol/L (96-108); Creatinine Clr Calc Pharmacy 28.8; Estimated Glomerular Filt Rate 24; Glucose Random 164 mg/dL (60-115); Potassium 5.1 mmol/L (3.3-5.1); Sodium 139 mmol/L (135-145)
[2021-07-17] MEDS: Fluticasone Propionate 100 MCG BLST.W.DEV 1 PUFF INHALE ×2 (07:51→20:43)
[2021-07-17] MEDS: Albuterol Sulfate 90 MCG 8 GM INHALER 1 PUFF INHALE (07:52)
[2021-07-17 07:53] LABS: Glucose, Whole Blood 141 mg/dL (60-115)
--- NOTE | 2021-07-17 09:48 | MHC.CM.PN ---
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 PT REPORTS SHE WOUYLD LIKE A NEW VNA AND USED TO HAVE ONE BUT THEY NO LONGER COME TO SEE HER. PFIZER X2, PCP IS [facility] AND PT GIVEN EDUCATIOON ON HCP HOWEVER IS CURRENTLY DECLINING SHE IS UNABLE TO DECIDE ON WHICH OF HER CHILDREN/GCHILDEN SHE WOULD CHOSE. D/C PLAN: HOME W/NEW VNA AND RESUMP OF FAMILY SUPPORT AND [employer] [facility] HRS, PT REPORTS FAMILY CAN TRANSPORT
[2021-07-17] MEDS: Venlafaxine HCl ER 75 MG CAP.ER.24H PO (10:24)
[2021-07-17] MEDS: Gabapentin 400 MG CAPSULE PO ×3 (10:24→21:11)
[2021-07-17] MEDS: Venlafaxine HCl ER 37.5 MG CAP.ER.24H PO (10:24)
[2021-07-17] MEDS: FLUoxetine HCl 20 MG CAPSULE PO (10:24)
[2021-07-17] MEDS: Metoprolol Tartrate 25 MG TABLET PO ×2 (10:24→21:11)
[2021-07-17] MEDS: Aspirin Enteric Coated 81 MG TABLET.DR PO (10:24)
[2021-07-17 11:36] LABS: Glucose, Whole Blood 138 mg/dL (60-115)
--- NOTE | 2021-07-17 12:44 | HO.PM.IMPN ---
Subjective Subjective Date of Service: 07/18/21 Interval History: feeling better denies dizziness, no fevers, no chills denies epigastric pain, no hematemesis, no melena, Belcher catheter with clear urine no acute issues overnight, noted to have drop in hematocrit this morning from 43.8-35.2 patient asymptomatic with no chest pain, no shortness of breath, no palpitation Review of Systems Review of Systems: Yes all other systems are reviewed and are negative Physical Exam Vital Signs: Vital Signs: Last Vital Signs Temp 97.0 F 07/17/21 07:39 Pulse 74 07/17/21 07:53 Resp 18 07/17/21 07:53 BP 131/69 07/17/21 07:39 Pulse Ox 98 07/17/21 07:39 BMI result Body Mass Index 35.5 Const: Other: General awake alert x3,no acute distress.? Neck? no JVD. CVS? regular rate rhythm, Respiratory lungs clear to auscultation, no respiratory distress, no wheeze, no rhonchi. Gastrointestinal abdomen soft, obese, nontender, bowel sounds audible Extremities no? edema. Back no CVA tenderness Neuro nonfocal Skin no rash Psych appropriate affect Objective Data Active Medications Acetaminophen (Acetaminophen 325 Mg Tablet) 650 mg PO Q6H PRN PRN Reason: Pain, Mild (Pain Scale 1-3) Albuterol Sulfate (Albuterol Sulfate 90 Mcg 8 Gm Inhaler) 1 puff INHALE QID PRN PRN Reason: Wheezing Last Admin: 07/17/21 07:52 Dose: 1 puff Documented by: LIV Aspirin (Aspirin Enteric Coated 81 Mg Tablet.) 81 mg PO DAILY [facility] Last Admin: 07/17/21 10:24 Dose: 81 mg Documented by: CARMELLA Dextrose (Dextrose 50 % 25 Gm/50 Ml Syringe) 25 gm IVPUSH Q15M PRN; Protocol PRN Reason: per Hypoglycemia Standing Ord. Fluoxetine HCl (Fluoxetine Hcl 20 Mg Capsule) 20 mg PO DAILY [facility] Last Admin: 07/17/21 10:24 Dose: 20 mg Documented by: CARMELLA Fluticasone Propionate (Fluticasone Propionate 100 Mcg Blst.W.Dev) 1 puff INHALE RBID [facility] Last Admin: 07/17/21 07:51 Dose: 1 puff Documented by: LIV Gabapentin (Gabapentin 400 Mg Capsule) 400 mg PO TID [facility] Last Admin: 07/17/21 10:24 Dose: 400 mg Documented by: CARMELLA Gabapentin (Gabapentin 600 Mg Tablet) 600 mg PO BEDTIME [facility] Last Admin: 07/16/21 21:24 Dose: 600 mg Documented by: PUMA Glucose (Glucose Gel 15 Gm Gel..Gram.) 15 gm PO Q15M PRN; Protocol PRN Reason: per Hypoglycemia Standing Ord. Ceftriaxone Sodium 1 gm/ (Sodium Chloride) 50 mls @ 100 mls/hr IV Q24H [facility] Last Infusion: 07/16/21 20:52 Dose: 0 mls/hr Documented by: PUMA Insulin Human Lispro (Insulin Lispro 100 Unit/Ml 3 Ml Vial) 0 unit SUBCUT QIDACHS [facility]; Protocol Last Admin: 07/17/21 12:01 Dose: Not Given Documented by: CARMELLA Non-Admin Reason: No Insulin Coverage Melatonin (Melatonin 3 Mg Tablet) 3 mg PO BEDTIME PRN PRN Reason: Insomnia Metoprolol Tartrate (Metoprolol Tartrate 25 Mg Tablet) 25 mg PO BID [facility]; Protocol Last Admin: 07/17/21 10:24 Dose: 25 mg Documented by: CARMELLA Ondansetron HCl (Ondansetron Hcl 4 Mg/2 Ml Vial) 4 mg IVPUSH Q8H PRN PRN Reason: Nausea and Vomiting Pharmacy Consult (Consult Rx Perform Med Rec) 1 each MISCELLANE ONCE PRN PRN Reason: Consult order Quetiapine Fumarate (Quetiapine Fumarate 300 Mg Tablet) 300 mg PO BEDTIME [facility] Last Admin: 07/16/21 21:24 Dose: 300 mg Documented by: PUMA Sodium Chloride (0.9 % Sodium Chloride Flush 3 Ml Syringe) 3 ml IVFLUSH QSHIFT [facility] Last Admin: 07/17/21 10:25 Dose: 3 ml Documented by: CARMELLA Venlafaxine HCl (Venlafaxine Hcl Er 37.5 Mg Cap.Er.24h) 37.5 mg PO DAILY [facility] Last Admin: 07/17/21 10:24 Dose: 37.5 mg Documented by: CARMELLA Venlafaxine HCl (Venlafaxine Hcl Er 75 Mg Cap.Er.24h) 75 mg PO DAILY [facility] Last Admin: 07/17/21 10:24 Dose: 75 mg Documented by: CARMELLA Labs CBC & Chem 7: 07/17/21 13:04 07/17/21 05:01 Labs: Laboratory Results - last 24 hr 07/16/21 07/16/21 07/17/21 15:57 20:27 05:01 MCV 92.6 MCH 28.4 MCHC 30.7 L RDW 13.9 Plt Count 294 MPV 10.9 Absolute Nucleated RBC 0.000 Nucleated RBC % (auto) 0.0 Anion Gap Estim Creat Clear Calc Estimated GFR POC Glucose 121 H 151 H Random Glucose Calcium 07/17/21 07/17/21 07/17/21 05:01 07:40 11:27 MCV MCH MCHC RDW Plt Count MPV Absolute Nucleated RBC Nucleated RBC % (auto) Anion Gap 15 Estim Creat Clear Calc 28.8 Estimated GFR 24 POC Glucose 141 H 138 H Random Glucose 164 H Calcium 8.3 L Microbiology Microbiology Results: Microbiology 07/15/21 17:43 Urine Culture - Final Urine Catheterized - Belcher Catheter Escherichia coli Assessment and Plan (1) Dizziness: Status: Acute (2) LETHA (acute kidney injury): Status: Acute (3) Acute UTI: Status: Acute Plan 75 yo F with multiple medical problems who presents to the hospital after an episode of dizziness, right neck , right anterior chest and arm pain she is found to have LETHA, severe hyperglycemia, new onset a. fib and UTI. She will be admitted for further treatment. # Acute on chronic kidney disease stage 3 Improving, creatinine down from 3.68 to 2.04, baseline creatinine 1.5 Likely related to renal obstruction,use of nsiad and arb , since Renal ultrasound showed bilateral hydronephrosis and elevated bladder scan,belcher placed dc NSAIDs, /dc lisinopril and hydrochlorothiazide added flomax Follow BMP, Nephro note appreciated, outpatient urology follow-up patient noted to have drop in hematocrit, no hematemesis or melena noted,no significant drop since baseline 38,likely dilutional will repeat CBC, check stool guaiacs further workup depending on repeat labs. # UTI UA significantly positive urine culture grew E coli sensitive to ceftriaxone day 3/7, ESBL negative, continue IV ceftriaxone and change to by mouth Ceftin 2.5 mg b.i.d. for total 7 days # Paroxysmal atrial fibrillation initially rapid HR in the 100 range spontaneously converted to normal sinus rhythm Continue metoprolol and Eliquis chads vascular score of 5, no recurrent episodes # dizziness resolved likely due to hypotension, AFib RVR, and UTI ?orthostatic studies benign follow clinical course, CT head showed no acute intracranial pathology ?Chronic lower extremity weakness wheelchair-bound # right sided neck right shoulder and arm pain and tingling CT cervical spine showed no acute visible fractures or dislocation is status post spinal fusion C2 through C6 with intact spinal hardware Pain improved use Tylenol as needed. # diabetes mellitus on pre meal insulin, blood sugar < 200, continue diabetic diet, insulin sliding scale and follow blood sugars. #. CAD - s/p DE + Stenting No left-sided chest pain, normal troponin, EKG showed no ischemic change continue asa / statin and beta-lanette # depression continue home medication venlafaxine and Seroquel # obesity weight reduction recommended # code status? Full Code # DVT prophylaxis on Eliquis Patient will need continued inpatient hospitalization due to acute on chronic kidney disease stage 3 , urinary retention, drop in hematocrit requiring further workup and treatment, Quality Stroke Does the patient have a stroke diagnosis?: No VTE Prior VTE?: No VTE Risk Level:: Medical - moderate - high VTE Device Contraindication: Treatment Not Indicated VTE Drug Contraindication: N/A - Med Ordered
[2021-07-17 13:18] LABS: Hematocrit 36.6 % (37.0-47.0); Mean Corpuscular HGB Conc 30.1 g/dl (31.0-35.0); Mean Corpuscular Hemoglobin 28.6 pg (27.0-33.0); Mean Corpuscular Volume 95.1 fL (80.0-98.0); Mean Platelet Volume 10.5 fL (9.4-12.3); Platelet Count 303 X10*3/uL (160-400); Red Blood Count 3.85 X10*6/uL (4.20-5.50)
[2021-07-17] MEDS: Lactulose 20 GM/30 ML SOLUTION 10 GM PO (13:58)
[2021-07-17 16:16] LABS: Glucose, Whole Blood 104 mg/dL (60-115)
[2021-07-17] MEDS: cefTRIAXone sodium 1 GM in 0.9 % Sodium Chloride 50 ML IV (17:47)
[2021-07-17 20:14] LABS: Glucose, Whole Blood 151 mg/dL (60-115)
--- NOTE | 2021-07-17 20:14 | P.PNNP_ITS ---
Subjective Subjective Date of Service: 07/17/21 Interval history: CHart Reviewed. events noted. Physical Exam Vital Signs: Vital Signs: Last Vital Signs Temp 98.3 F 07/17/21 19:12 Pulse 67 07/17/21 19:12 Resp 18 07/17/21 19:12 BP 133/60 07/17/21 19:12 Pulse Ox 98 07/17/21 19:12 BMI result Body Mass Index 35.5 Const: General: comfortable and no acute distress Orientation/con sciousness: patient oriented x3 HEENT: Head: Yes normocephalic Neck: Neck: Yes no JVD Resp: Auscultation: clear to auscultation bilaterally Cardio: Jugular venous distension: no JVD Rate: regular rate Rhythm: regular rhythm Heart sounds: S1 normal heart sound present and S2 normal heart sound present GI: Percussion: Yes normal to percussion Auscultation: normal bowel sounds Neuro: General: patient oriented x3 Extrem: General: Yes no joint enlargement and Yes no clubbing, cyanosis or edema Objective Data Labs CBC & Chem 7: 07/17/21 13:04 07/17/21 05:01 Labs: Laboratory Results - last 24 hr 07/16/21 07/17/21 07/17/21 20:27 05:01 05:01 WBC 8.7 RBC 3.80 L D Hgb 10.8 L D Hct 35.2 L MCV 92.6 MCH 28.4 MCHC 30.7 L RDW 13.9 Plt Count 294 MPV 10.9 Absolute Nucleated RBC 0.000 Nucleated RBC % (auto) 0.0 Sodium 139 Potassium 5.1 Chloride 109 H Carbon Dioxide 20 L Anion Gap 15 BUN 65 H Creatinine 2.04 H Estim Creat Clear Calc 28.8 Estimated GFR 24 POC Glucose 151 H Random Glucose 164 H Calcium 8.3 L 07/17/21 07/17/21 07/17/21 07:40 11:27 13:04 WBC 8.0 RBC 3.85 L Hgb 11.0 L Hct 36.6 L MCV 95.1 MCH 28.6 MCHC 30.1 L RDW 14.0 Plt Count 303 MPV 10.5 Absolute Nucleated RBC 0.000 Nucleated RBC % (auto) 0.0 Sodium Potassium Chloride Carbon Dioxide Anion Gap BUN Creatinine Estim Creat Clear Calc Estimated GFR POC Glucose 141 H 138 H Random Glucose Calcium 07/17/21 16:07 WBC RBC Hgb Hct MCV MCH MCHC RDW Plt Count MPV Absolute Nucleated RBC Nucleated RBC % (auto) Sodium Potassium Chloride Carbon Dioxide Anion Gap BUN Creatinine Estim Creat Clear Calc Estimated GFR POC Glucose 104 Random Glucose Calcium Microbiology Microbiology Results: Microbiology 07/15/21 17:43 Urine Catheterized - [facility]is Catheter Urine Culture - Final Escherichia coli Procedures Date of Service Date of Service: 07/17/21 Assessment & Plan Assessment and plan (1) LETHA (acute kidney injury): Status: Acute Plan #) LETHA, non-oliguric CKD at BL likely ~ 1.5-1.6 mg/dL S-Cr continues to improve. Monitor uop. bladder scan q shift for retention Reported 5 days of nsaid use along with lisinopril-hctz combination pill. Renal US with mild to mod hydro b/l Avoidance of acei/arb, nsaids, IV contrast, renal dosing abx Nephrology will follow along with you. Thank you for this consult. Time Spent With Patient Time: Total time spent is greater than 50% in coordination of care (as documented) at patient's floor/unit and/or counseling patient: Progress Note: Quality Stroke Does the patient have a stroke diagnosis?: No
[2021-07-17] MEDS: Insulin Lispro 100 UNIT/ML 3 ML VIAL SUBCUT (21:10)
[2021-07-17] MEDS: QUEtiapine Fumarate 300 MG TABLET PO (21:11)
[2021-07-17] MEDS: Gabapentin 600 MG TABLET PO (21:11)
[2021-07-18] MEDS: 0.9 % Sodium Chloride Flush 3 ML SYRINGE IVFLUSH ×2 (00:11→08:07)
[2021-07-18 03:38] VITALS: BP 105/60; PULSE 68; RESP 17; TEMP 36.3; O2SAT 98
[2021-07-18] MEDS: Fluticasone Propionate 100 MCG BLST.W.DEV 1 PUFF INHALE (07:27)
[2021-07-18 07:28] VITALS: BP 108/62; PULSE 56; RESP 20; TEMP 36.4; O2SAT 98
[2021-07-18 07:41] LABS: Glucose, Whole Blood 134 mg/dL (60-115)
[2021-07-18] MEDS: FLUoxetine HCl 20 MG CAPSULE PO (08:06)
[2021-07-18] MEDS: Metoprolol Tartrate 25 MG TABLET PO (08:06)
[2021-07-18] MEDS: Aspirin Enteric Coated 81 MG TABLET.DR PO (08:07)
[2021-07-18] MEDS: Gabapentin 400 MG CAPSULE PO (08:07)
[2021-07-18] MEDS: Venlafaxine HCl ER 37.5 MG CAP.ER.24H PO (08:07)
[2021-07-18] MEDS: Docusate Sodium 100 MG CAPSULE 200 MG PO (08:07)
[2021-07-18] MEDS: Venlafaxine HCl ER 75 MG CAP.ER.24H PO (08:07)
--- NOTE | 2021-07-18 09:58 | P.DS_ITS ---
DS: Providers Provider Date of Service: 07/18/21 Date of admission: 07/15/21 14:28 Primary care physician: Unknown Physician Consults: 07/16/21 07:46 Consult to Nephrology Routine Consulting Provider: Wesley Contreras Reason for consultation: letha on ckd stage 3 Has provider been notified: No 07/16/21 10:25 Consult to Urology Routine Consulting Provider: Mayito Calhoun Reason for consultation: b/l hydronephrosis/retention Has provider been notified: No DS: Diagnosis Discharge Diagnosis (1) Dizziness: Status: Acute (2) LETHA (acute kidney injury): Status: Acute (3) Acute UTI: Status: Acute DS: Summary Hospital Course Hospital Course: history of presenting illness Chief Complaint: Dizziness 76-year-old female wheelchair-bound due to chronic lower extremity weakness with past medical history of atrial fibrillation on Eliquis, diabetes mellitus on insulin, hyperlipidemia, hypertension, chronic kidney disease, coronary artery disease woke up this morning was doing fine border tried helping her from wheelchair to the bathroom when she developed significant dizziness and felt as if she is standing and going to fall down daughter reassured that you are sitting but since patient continued to have feeling of dizziness and falling down daughter called the EMS, patient also complaned of right sided neck pain with radiation to right anterior chest and right upper extremity without recent fall or excessive use, she denied associated speech impairment no vision loss no headache, no associated nausea vomiting diarrhea, no urinary symptoms of urgency and frequency on arrival to the emergency room patient was noted to be in transient AFib with RVR and spontaneously converted to normal sinus rhythm without treatment patient orthostatic studies are within normal range, she was noted to have few low blood pressure readings, oxygenation is stable? 98% on room air, initial ekg showed atrial fibrillation with ventricular rate in 1 teens, repeat EKG showed normal sinus rhythm, troponin? normal , WBC 11.3 stable hemoglobin hematocrit and platelet count, creatinine 3.68, with last creatinine 06/14/2021 of 1.52 patient received 2 L of IV fluid in the emergency room currently feeling better denies dizziness, right arm and neck pain has also significantly improved patient will be admitted to [facility] for close monitoring and treatment of acute on chronic kidney disease stage 3. hospital course 75 yo F with multiple medical problems who presents to the hospital after an episode of dizziness, right neck , right anterior chest and arm pain she is found to have LETHA, severe hyperglycemia, new onset a. fib and UTI. She will be admitted for further treatment. # Acute on chronic kidney disease stage 3, patient noted to have creatinine of 3.68 on admission with baseline creatinine 1.5, letha likely related to renal obstruction,use of nsiad and arb ,? since Renal ultrasound showed bilateral hydronephrosis and elevated bladder scan,belcher placed and patient started on Flomax, NSAIDs, lisinopril and hydrochlorothiazide were discontinued creatinine is trending down patient seen by Nephrology they agree with above treatment plan patient has been instructed to continue Belcher catheter for 2 weeks and have outpatient follow-up with Dr. Calhoun, noted to have mild drop in hematocrit likel y dilutional, recommend outpatient CBC and BMP follow up in 1 week, recommend Nephrology follow-up in 1-2 weeks # UTI patient presented with weakness and nausea had no urinary symptoms however noted to significantly positive UA, urine culture? grew E coli ESBL negative,sensitive to cephalosporin patient treated with IV ceftriaxone now being discharged on mouth Ceftin 2.5 mg b.i.d. for total 7 days # Paroxysmal atrial fibrillation initially rapid HR in the 100 range spontaneously converted to normal sinus rhythm,Continue metoprolol and Eliquis chads vascular score of 5, no recurrent episodes # dizziness ?resolved likely due to hypotension, AFib RVR, and UTI,?orthostatic studies benign follow clinical course, CT head showed no acute intracranial pathology,?Chronic lower extremity weakness wheelchair-bound # right sided neck right shoulder and arm pain and tingling CT cervical spine showed no acute visible fractures or dislocation is status post spinal fusion C2 through C6 with intact spinal hardware Pain improved use Tylenol as needed. # diabetes mellitus on pre meal insulin, blood sugar < 200, continue diabetic diet, #. CAD - s/p ID + Stenting No left-sided chest pain, normal troponin, EKG showed no ischemic change continue asa / statin and beta-lanette # depression continue home medication venlafaxine and Seroquel # obesity weight reduction recommended Time Spent with Patient Time attestation: Total time spent providing and/or coordinating discharge services: Discharge coordination time: Greater than 30 minutes Quality: Safe Use of Opioids Does Pt have an Active Cancer Diagnosis on the Problem List?: No Quality: Stroke Does the patient have a stroke diagnosis?: No Physical Exam Vital Signs: Vital Signs: Last Vital Signs Temp 97.5 F 07/18/21 07:28 Pulse 56 07/18/21 07:28 Resp 20 07/18/21 07:28 BP 108/62 07/18/21 07:28 Pulse Ox 98 07/18/21 07:28 BMI result Body Mass Index 35.5 Const: Other: General awake alert x3,no acute distress.? Neck? no JVD. CVS? regular rate rhythm, Respiratory lungs clear to auscultation, no respiratory distress, no wheeze, no rhonchi. Gastrointestinal abdomen soft, obese, nontender, bowel sounds audible Extremities no? edema. Back no CVA tenderness Neuro nonfocal Skin no rash Psych appropriate affect DS: Data Data Completed and Pending Completed studies during hospitalization [Text1]: Procedures Insertion of Infusion Device into Right Basilic Vein, Percutaneous Approach (01/21/21) Labs on day of discharge: Laboratory Results - last 24 hr 07/17/21 07/17/21 07/17/21 11:27 13:04 16:07 WBC 8.0 RBC 3.85 L Hgb 11.0 L Hct 36.6 L MCV 95.1 MCH 28.6 MCHC 30.1 L RDW 14.0 Plt Count 303 MPV 10.5 Absolute Nucleated RBC 0.000 Nucleated RBC % (auto) 0.0 POC Glucose 138 H 104 07/17/21 07/18/21 20:06 07:26 WBC RBC Hgb Hct MCV MCH MCHC RDW Plt Count MPV Absolute Nucleated RBC Nucleated RBC % (auto) POC Glucose 151 H 134 H Discharge Plan Discharge Patient Disposition: Home Health Service Discharge Diagnosis: Urinary tract infection acute on chronic kidney disease stage 3 dizziness right anterior chest and neck pain Referrals: Physician,Unknown J [Primary Care Provider] - 1 Week Discharge Medications: New tamsulosin 0.4 mg Capsule 0.4 mg PO DAILY Qty: 30 0RF cefuroxime axetil 250 mg tablet 250 mg PO BID Qty: 7 0RF Continued gabapentin 600 mg Tablet 600 mg PO BEDTIME 0RF albuterol sulfate [ProAir HFA] 90 mcg/actuation Hfa Aerosol Inhaler 1 inh INHALATION QID PRN (Reason: Wheezing) 0RF fluticasone propionate 110 mcg/actuation Hfa Aerosol Inhaler 1 puff INHALATION BID 0RF venlafaxine 37.5 mg capsule,extended release 24hr 1 cap PO DAILY 0RF venlafaxine 75 mg capsule,extended release 24hr 1 cap PO DAILY 0RF quetiapine 300 mg tablet 300 mg PO BEDTIME 0RF gabapentin 400 mg capsule 1 cap PO TID 0RF Rx Instructions: take pm dose with 600 mg tablet metoprolol tartrate 25 mg tablet 25 mg PO BID 0RF Protocol: Hold for SBP/HR < HOLD for SBP < : 90 HOLD for HR < : 60 acetaminophen 325 mg Tablet 650 mg PO Q6H PRN (Reason: Pain) 0RF aspirin 81 mg Capsule 81 mg PO DAILY 0RF fluoxetine 20 mg capsule 1 cap PO DAILY 0RF Eliquis 5 mg Tablet 5 mg PO BID Qty: 60 0RF (DME) lancets [FreeStyle Lancets] 28 gauge misc See Rx Instructions .ROUTE .MEDSUPPLY Qty: 100 0RF Rx Instructions: As directed (DME) FreeStyle Lite Strips Strip See Rx Instructions .Route Qty: 100 0RF Rx Instructions: As directed (DME) pen needle, diabetic [Pen Needle] 32 gauge x 5/32 needle See Rx Instructions .Route Qty: 50 0RF Rx Instructions: As directed methenamine hippurate [Hiprex] 1 gram tablet 1 g PO ONCE 90 Days Qty: 90 1RF (DME) lancing device with lancets [BodBot Lanc Device] Kit See Rx Instructions ea .ROUTE .MEDSUPPLY Qty: 1 0RF Rx Instructions: As directed estradiol 0.01 % (0.1 mg/gram) cream See Rx Instructions .Route 3XW 30 Days Qty: 42.5 2RF Rx Instructions: pea-sized to urethra 3 times a week Changed insulin lispro [Humalog KwikPen Insulin] 100 unit/mL insulin pen 6 unit subcut TIDAC Qty: 0 0RF Discontinued ibuprofen 200 mg Tablet 400 mg PO Q6H PRN (Reason: Pain) 0RF lisinopril-hydrochlorothiazide 20-25 mg tablet 1 tab PO DAILY 0RF Discharge Orders: Discharge Order (Routine); Ordered 07/18/21 Ordered By: Kimberly Luu Diet: diabetic diet Activity on Discharge: As tolerated Stand Alone Forms: Patient Portal Discharge page Other Ambulatory Orders: Basic Metabolic Panel Fasting (Routine) Timeframe: 1 Week Facility: [facility] - Location: Laboratory Ordered By: Kimberly Luu Complete Blood Count no Diff (Routine) Timeframe: 1 Week Facility: [facility] - Location: Laboratory Ordered By: Kimberly Luu Care Plan Goals: acute kidney injury, creatinine improving do not use Advil Motrin or NSAIDs stop using lisinopril, take Ceftin twice daily as prescribed for urine infection continue Belcher catheter and follow-up with Dr. Calhoun check BMP and CBC in 1 week Health Concerns: diabetes mellitus follow diabetic diet dose of insulin reduced to 6 units pre meals Plan of Treatment: outpatient follow-up with urologist Dr. Calhoun in 2 weeks, call to make appointment follow up with primary care physician in 1-2 weeks, follow up with primary Manager Gaming Assessment: as per discharge summary
[2021-07-18] MEDS: Tamsulosin HCL 0.4 MG CAPSULE PO (10:05)
[2021-07-18] MEDS: Apixaban 5 MG TABLET PO (10:06)
[2021-07-18 10:29] LABS: Anion Gap 16 (12-20); Blood Urea Nitrogen 64 mg/dL (9-16); Calcium 8.4 mg/dL (8.4-10.2); Carbon Dioxide 21 mmol/L (22-29); Chloride 109 mmol/L (96-108); Creatinine Clr Calc Pharmacy 30.8; Estimated Glomerular Filt Rate 26; Glucose Random 187 mg/dL (60-115); Potassium 4.8 mmol/L (3.3-5.1); Sodium 141 mmol/L (135-145)
== END 2021-07-18 11:30 | disposition home health service (06) | DRG 309 ==
LOC: HO.ED 13:32 → HO.EDOVER 14:35 → HO.S3 22:22
PROVIDERS: Physician Assistant; Admitting Provider Hospitalist; Emergency Provider Emergency Medicine; PCP Internal Medicine; Visit Provider Hospitalist
DX: I48.0 Paroxysmal atrial fibrillation (principal); N17.9 Acute kidney failure, unspecified; N39.0 Urinary tract infection, site not specified; N13.6 Pyonephrosis; I12.9 Hypertensive chronic kidney disease with stage 1 through stage 4 chronic kidney disease, or unspecified chronic kidney disease; N18.30 Chronic kidney disease, stage 3 unspecified; E11.22 Type 2 diabetes mellitus with diabetic chronic kidney disease; F41.9 Anxiety disorder, unspecified; F32.A Depression, unspecified; J45.909 Unspecified asthma, uncomplicated; E66.9 Obesity, unspecified; Z68.35 Body mass index [BMI] 35.0-35.9, adult; Z95.5 Presence of coronary angioplasty implant and graft; Z99.3 Dependence on wheelchair; I25.10 Atherosclerotic heart disease of native coronary artery without angina pectoris; E11.65 Type 2 diabetes mellitus with hyperglycemia; R33.9 Retention of urine, unspecified; Z20.822 Contact with and (suspected) exposure to COVID-19; I25.2 Old myocardial infarction; Z88.5 Allergy status to narcotic agent; Z88.8 Allergy status to other drugs, medicaments and biological substances; Z79.4 Long term (current) use of insulin; Z79.01 Long term (current) use of anticoagulants; Z79.82 Long term (current) use of aspirin; Z79.899 Other long term (current) drug therapy
CPT/HCPCS: 36415; 70450; 71045; 72125; 73030; 76775; 80048; 80076; 81001; 82947; 83735; 84484; 85025; 85027; 85610; 85730; 87086; 87088; 87186; 87635; 93005; 94640; 96360; 96361; 99285; C1758; J0696

== ENCOUNTER 2021-07-28 12:19 | Outpatient (REF) | payer OTHER, SELFPAY ==
[2021-07-28 13:51] LABS: Hematocrit 40.3 % (37.0-47.0); Hemoglobin 12.1 g/dl (12.0-16.0); Mean Corpuscular Hemoglobin 28.1 pg (27.0-33.0); Mean Corpuscular Volume 93.5 fL (80.0-98.0); Platelet Count 353 X10*3/uL (160-400); Red Blood Count 4.31 X10*6/uL (4.20-5.50); Red Cell Distribution Width 13.4 % (11.0-16.0); White Blood Count 7.4 X10*3/uL (4.8-10.8)
[2021-07-28 14:20] LABS: Anion Gap 13 (12-20); Blood Urea Nitrogen 33 mg/dL (9-16); Calcium 8.7 mg/dL (8.4-10.2); Carbon Dioxide 25 mmol/L (22-29); Chloride 107 mmol/L (96-108); Estimated Glomerular Filt Rate 33; Glucose Random 198 mg/dL (60-115); Potassium 5.2 mmol/L (3.3-5.1); Sodium 140 mmol/L (135-145)
== END 2021-07-28 12:20 | disposition home or self-care (01) ==
LOC: HO.HMGCLNP 12:19
PROVIDERS: Visit Provider Internal Medicine
DX: N17.9 Acute kidney failure, unspecified (principal); R42 Dizziness and giddiness
CPT/HCPCS: 80048; 85027

== ENCOUNTER → 2021-09-29 10:37 | Outpatient (BNVA) | payer OTHER, SELFPAY | PROVIDERS: PCP Internal Medicine; Referring Provider Internal Medicine; Visit Provider Internal Medicine | DX: I48.0 Paroxysmal atrial fibrillation (principal); E11.8 Type 2 diabetes mellitus with unspecified complications; I25.2 Old myocardial infarction; Z79.01 Long term (current) use of anticoagulants; Z79.899 Other long term (current) drug therapy | CPT/HCPCS: 99202 ==

== ENCOUNTER 2021-10-06 13:31 | Outpatient (REF) | payer OTHER, SELFPAY ==
[2021-10-06 13:55] LABS: MANUAL DIFF FLAG NO
[2021-10-06 15:07] LABS: Basophils Percent Auto 0.3 % (0-2); Eosinophils Absolute Auto 0.2 X10*3/uL (0.0-0.4); Eosinophils Percent Auto 1.5 % (0-4); Hematocrit 34.4 % (37.0-47.0); Hemoglobin 10.5 g/dl (12.0-16.0); Imm Gran Abs Auto 0.08 X10*3/uL (0.00-0.03); Imm Gran Pct Auto 0.7 % (0.0-0.4); Mean Corpuscular HGB Conc 30.5 g/dl (31.0-35.0); Mean Corpuscular Hemoglobin 27.2 pg (27.0-33.0); Mean Corpuscular Volume 89.1 fL (80.0-98.0); Mean Platelet Volume 10.3 fL (9.4-12.3); Monocytes Absolute Auto 0.6 X10*3/uL (0.1-1.2); Monocytes Percent Auto 5.2 % (2-11); Neutrophils Absolute Auto 8.8 x10*3/uL (2.0-8.3); Neutrophils Percent Auto 75.3 % (45-73); Platelet Count 488 X10*3/uL (160-400); Red Blood Count 3.86 X10*6/uL (4.20-5.50); Red Cell Distribution Width 14.1 % (11.0-16.0); White Blood Count 11.7 X10*3/uL (4.8-10.8)
[2021-10-06 16:59] LABS: Albumin Level 3.4 g/dL (3.5-5.0); Anion Gap 22 (12-20); Blood Urea Nitrogen 75 mg/dL (9-16); Calcium 8.1 mg/dL (8.4-10.2); Carbon Dioxide 17 mmol/L (22-29); Chloride 105 mmol/L (96-108); Estimated Glomerular Filt Rate 9; Magnesium 2.2 mg/dL (1.6-2.6); Potassium 5.3 mmol/L (3.3-5.1); Sodium 139 mmol/L (135-145)
[2021-10-07 16:13] LABS: Calcium (PTHI) 8.1 mg/dL (8.6-10.4); PTHI 251 pg/mL (16-77)
== END 2021-10-06 13:32 | disposition home or self-care (01) ==
LOC: HO.LAB 13:31
PROVIDERS: Absent Provider Internal Medicine; PCP Internal Medicine; Visit Provider Internal Medicine Nephrology
DX: I12.9 Hypertensive chronic kidney disease with stage 1 through stage 4 chronic kidney disease, or unspecified chronic kidney disease (principal); N18.32 Chronic kidney disease, stage 3b; E11.22 Type 2 diabetes mellitus with diabetic chronic kidney disease; R80.1 Persistent proteinuria, unspecified
CPT/HCPCS: 36415; 80051; 82040; 82306; 82310; 82565; 83735; 83970; 84100; 84520; 85025

== ENCOUNTER 2021-10-07 15:09 | Emergency (ER) | payer OTHER, SELFPAY ==
[2021-10-07 15:40] VITALS: BP 110/51; PULSE 54; RESP 16; TEMP 37; O2SAT 98; BMI 36.6
== END 2021-10-07 17:53 | disposition left against medical advice (07) ==
PROVIDERS: Emergency Provider Emergency Medicine; PCP Internal Medicine
DX: R94.4 Abnormal results of kidney function studies (principal)
CPT/HCPCS: 99281

== ENCOUNTER 2021-10-11 11:30 | Inpatient (IN) | payer OTHER, SELFPAY ==
--- NOTE | ~2021-10-11 | CT_ITS ---
EXAMINATION: CT ABDOMEN AND PELVIS WITHOUT CONTRAST CLINICAL INFORMATION: fozia r/o obstructive . COMPARISON: 06/09/2016. TECHNIQUE: Multidetector volumetric imaging was performed from the superior aspect of the liver through the pubic symphysis without contrast per renal stone protocol. Sagittal and coronal reformatted images were obtained on the technologist workstation. This CT examination was performed using dose optimization techniques as appropriate, variously including the following: *Automated exposure control *Adjustment of mA and/or kV according to patient size (this includes techniques or standardized protocols for targeted exams where dose is matched to indication/reason for exam; i.e. extremities or head) *Use of iterative reconstruction technique DLP: 883 mGy-cm. FINDINGS: LUNG BASES: Mild dependent airspace changes likely due to atelectasis LIVER, GALLBLADDER, BILIARY TREE: The non-contrast liver is normal in size, shape, and attenuation. No focal hepatic lesion or biliary ductal dilatation is present. Gallbladder surgically absent PANCREAS: Unremarkable. SPLEEN: Unremarkable. ADRENAL GLANDS: Unremarkable. KIDNEYS AND URETERS: Bilateral hydronephrosis and hydroureter is seen within both tortuous dilated ureters extending up to the bladder. No renal or ureteric calculi. There is also a 4.7 cm partially exophytic cyst off of the lateral midpole of the right kidney. BLADDER: There is mild diffuse bladder wall thickening which could be seen in the setting of underlying cystitis or possibly neurogenic bladder. Correlation with urinalysis would be recommended. GASTROINTESTINAL TRACT: Moderate amount of stool seen throughout the colon. No colonic wall thickening or pericolonic inflammatory changes. Visualized small bowel unremarkable. Stomach is decompressed. ABDOMINAL WALL: No significant hernia is appreciated. LYMPHOVASCULAR STRUCTURES: Vascular calcification within the aorta iliac system. No bulky adenopathy. PELVIC VISCERA: Likely tiny amount of nonspecific air within the vaginal fornix OSSEUS STRUCTURES: Degenerative changes in the spine CT/CT abdomen pelvis wo con IMPRESSION: Bilateral hydronephrosis and hydroureter. The tortuous dilated ureters are extending up to a mildly distended bladder. Bladder demonstrates diffuse wall thickening for the degree of distention. Underlying cystitis could have this appearance. Neurogenic bladder possible as well. Correlation with urinalysis recommended..
[2021-10-11 12:01] VITALS: BP 109/58; PULSE 95; RESP 18; TEMP 36.9; O2SAT 97; BMI 38.7
[2021-10-11 12:18] LABS: MANUAL DIFF FLAG NO
[2021-10-11 12:20] LABS: Basophils Absolute Auto 0.1 X10*3/uL (0.0-0.2); Basophils Percent Auto 0.5 % (0-2); Eosinophils Absolute Auto 0.2 X10*3/uL (0.0-0.4); Eosinophils Percent Auto 1.9 % (0-4); Hemoglobin 11.1 g/dl (12.0-16.0); Imm Gran Abs Auto 0.04 X10*3/uL (0.00-0.03); Imm Gran Pct Auto 0.4 % (0.0-0.4); Lymphocytes Absolute Auto 1.6 X10*3/uL (1.2-4.9); Lymphocytes Percent Auto 16.7 % (20-40); Mean Corpuscular HGB Conc 30.8 g/dl (31.0-35.0); Mean Corpuscular Hemoglobin 27.5 pg (27.0-33.0); Mean Corpuscular Volume 89.3 fL (80.0-98.0); Mean Platelet Volume 9.9 fL (9.4-12.3); Monocytes Absolute Auto 0.9 X10*3/uL (0.1-1.2); Monocytes Percent Auto 9.8 % (2-11); Neutrophils Absolute Auto 6.6 x10*3/uL (2.0-8.3); Neutrophils Percent Auto 70.7 % (45-73); Platelet Count 484 X10*3/uL (160-400); Red Blood Count 4.03 X10*6/uL (4.20-5.50); White Blood Count 9.3 X10*3/uL (4.8-10.8)
[2021-10-11 12:33] LABS: COVID-19 Test Negative (Negative); IDNOW Serial# 16C4AD1C
[2021-10-11 12:39] LABS: Alanine Aminotransferase 8 U/L (0-31); Albumin Level 3.6 g/dL (3.5-5.0); Alkaline Phosphatase 95 U/L (39-117); Anion Gap 19 (12-20); Aspartate Amino Transferase 9 U/L (5-31); Bilirubin Direct 0.2 mg/dL (0.0-0.5); Bilirubin Total 0.4 mg/dL (0.0-1.0); Blood Urea Nitrogen 71 mg/dL (9-16); Calcium 8.5 mg/dL (8.4-10.2); Carbon Dioxide 19 mmol/L (22-29); Chloride 110 mmol/L (96-108); Creatinine Clr Calc Pharmacy 17.4; Estimated Glomerular Filt Rate 14; Glucose Random 170 mg/dL (60-115); Potassium 4.8 mmol/L (3.3-5.1); Sodium 143 mmol/L (135-145); Total Protein 8.2 g/dL (6.5-8.0)
--- NOTE | 2021-10-11 17:03 | ED_ITS ---
HPI - Abdominal Pain General Chief Complaint: Abdominal Pain Stated Complaint: Acute kidney inj sent by Time Seen by Provider: 10/11/21 14:50 Source: patient and family Mode of arrival: ambulatory History of Present Illness HPI narrative: Patient is 76 years old with history of chronic leg weakness, atrial fibrillation on Eliquis, diabetes on insulin, hyperlipidemia, hypertension, his coronary disease, CKD stage 3 sent by PCP for worsening of the renal functions. Patient been feeling weak does not have any taste feels tired had labs done on 10/06 which shows BUN/creatinine of 75/4.74 previous one on 07/28 was 33/1.5. Patient denies any use of NSAID or any new medication no abdominal pain feel nauseated no vomiting or diarrhea feels constipated Related Data Home Medications Medication Instructions Recorded Confirmed aspirin 81 mg capsule 81 mg PO DAILY 01/21/21 10/11/21 lancing device with lancets kit #1 ea 03/24/21 09/29/21 ([employer] Lancing Device kit) metoprolol tartrate 25 mg tablet 25 mg PO BID 07/15/21 10/11/21 quetiapine 300 mg tablet 150 mg PO BEDTIME PRN Insomnia 07/15/21 10/11/21 venlafaxine 37.5 mg 37.5 mg PO DAILY 09/29/21 10/11/21 capsule,extended release 24 hr gabapentin 400 mg capsule 1 cap PO TID 10/11/21 10/11/21 gabapentin 600 mg tablet 1 tab PO BEDTIME 10/11/21 10/11/21 insulin glargine 100 unit/mL (3 15 unit subcut BEDTIME 10/11/21 10/11/21 mL) subcutaneous pen (Lantus Solostar U-100 Insulin) lisinopril 20 1 tab PO DAILY 10/11/21 10/11/21 mg-hydrochlorothiazide 25 mg tablet Previous Rx's Medication Instructions Recorded apixaban 5 mg tablet (Eliquis) 5 mg PO BID #60 tabs 01/26/21 blood sugar diagnostic (FreeStyle #100 ea 01/26/21 Lite Strips) lancets 28 gauge (FreeStyle #100 ea 01/26/21 Lancets) pen needle, diabetic 32 gauge x #50 ea 01/26/21 (Pen Needle) estradiol 0.01% (0.1 mg/gram) See Rx Instructions .Route 3XW 30 03/24/21 vaginal cream days #42.5 grams insulin lispro 100 unit/mL 6 unit (0.06 mL) subcut TIDAC #0 mL 07/18/21 subcutaneous pen (Humalog KwikPen (U-100) Insulin) Allergies Allergy/AdvReac Type Severity Reaction Status Date / Time atorvastatin [ATORVASTATIN] Allergy Intermediate SWELLING Verified 09/29/21 11:00 morphine [MORPHINE] Allergy Intermediate RASH Verified 09/29/21 11:00 zolpidem [From AMBIEN] AdvReac Intermediate SLEEP WALKS Verified 09/29/21 11:00 Review of Systems Review of Systems Yes all other systems are reviewed and are negative PMFSH Past Medical History Medical History Anxiety and depression Arthritis Asthma Atrial flutter Chronic kidney disease, stage 3 Chronic pain Diabetes mellitus High cholesterol HTN (hypertension) Hyperglycemia Lateral malleolar fracture Limited mobility Multiple falls Myocardial infarction On anticoagulant therapy On beta lanette at home Urgency incontinence Surgical History H/O neck surgery History of cataract extraction History of cystoscopy History of heart artery stent Hx of cholecystectomy Hx of colonoscopy Family History Family History Father No problems noted. Mother Diabetes High blood pressure Stomach cancer Social History Social History Household Members: None Housing: Apartment Are you a primary critical care nurse specialist to a significant other at home: No Do you presently have visiting nurse or other home services: Yes Alcohol intake: current Alcohol intake frequency: does not drink Patient Tobacco Use Status: Former Tobacco user Quit Date: 2004 Tobacco use type: Cigarette Years Smoked: 30-40 years Second Hand Smoke Exposure: No Use of substances other than those prescribed or required for medical reasons: No Are you made to feel afraid or neglected: No Advance Directives: No Advance Directives Information Provided: No Advance Directives on File: No Do you have thoughts of harming others: None Do you have a plan to hurt others: No Plan Recently lost weight without trying: No Nutrition Risks: No Nutritional Risk Patient : No : No Poor oral hygiene: No service: No Current occupational status: disabled Physical Exam ED Vital Signs: Vital Signs - 24 hr 10/11/21 12:01 10/11/21 17:21 10/11/21 19:52 Temperature 98.5 F 97.9 F 97.9 F Pulse Rate 95 50 64 Respiratory Rate 18 16 Blood Pressure 109/58 L 92/55 L 130/101 H Pulse Oximetry 97 97 99 Oxygen Delivery Method Room Air Room Air Room Air BMI result Body Mass Index 38.7 Appearance: Alert. Oriented X3. No acute distress. Eyes: PERRLA, No Nystagmus pallor++ ENT: Pharynx normal. Oral Mucosa moist Neck: Normal inspection. Neck supple. CVS: Normal heart rate and rhythm. Pulses normal. Respiratory: No respiratory distress. Equal air entry bilateral, no whee zing/rales/rhonchi Abdomen: Soft and nontender. Bowel sounds are present, no mass palpable, no CVA tenderness Skin: Skin warm and dry. Normal skin color. Normal skin turgor. Extremities: No lower extremity edema. No calf tenderness Neuro: Oriented X 3. No motor deficit. No sensory deficit.No cerebellar signs , cranial nerves II-XII intact MDM - Abdominal Pain MDM Narrative Medical decision making narrative: Patient's LETHA etiology not very clear likely prerenal will admit patient for IV hydration watched closely BUN/creatinine also patient has UTI has bilateral hydronephrosis but bladder is not distended will give patient IV Rocephin patient has no signs of sepsis Medical Records Attestation: I reviewed the patient's medical records. Lab Data Attestation: I reviewed the patient's lab results. Result diagrams: 10/11/21 12:13 10/11/21 12:13 Labs: Lab Results 10/11/21 10/11/21 10/11/21 Range/Units 12:13 12:13 12:13 WBC 9.3 (4.8-10.8) X10*3/uL RBC 4.03 L (4.20-5.50) X10*6/uL Hgb 11.1 L (12.0-16.0) g/dl Hct 36.0 L (37.0-47.0) % MCV 89.3 (80.0-98.0) fL MCH 27.5 (27.0-33.0) pg MCHC 30.8 L (31.0-35.0) g/dl RDW 14.0 (11.0-16.0) % Plt Count 484 H (160-400) X10*3/uL MPV 9.9 (9.4-12.3) fL Immature Gran % (Auto) 0.4 (0.0-0.4) % Neut % (Auto) 70.7 (45-73) % Lymph % (Auto) 16.7 L (20-40) % [place] % (Auto) 9.8 (2-11) % Eos % (Auto) 1.9 (0-4) % Baso % (Auto) 0.5 (0-2) % Lymph # (Auto) 1.6 (1.2-4.9) X10*3/uL [place] # (Auto) 0.9 (0.1-1.2) X10*3/uL Eos # (Auto) 0.2 (0.0-0.4) X10*3/uL Baso # (Auto) 0.1 (0.0-0.2) X10*3/uL Abs Immat Gran (auto) 0.04 H (0.00-0.03) X10*3/uL Absolute Neuts (auto) 6.6 (2.0-8.3) x10*3/uL Absolute Nucleated RBC 0.000 (0.0-0.012) X10*3/uL Nucleated RBC % (auto) 0.0 (0.0-0.2) /100WBC Sodium 143 (135-145) mmol/L Potassium 4.8 (3.3-5.1) mmol/L Chloride 110 H (96-108) mmol/L Carbon Dioxide 19 L (22-29) mmol/L Anion Gap 19 (12-20) BUN 71 H (9-16) mg/dL Creatinine 3.17 H (0.5-1.4) mg/dL Estim Creat Clear Calc 17.4 Estimated GFR 14 Random Glucose 170 H (60-115) mg/dL Calcium 8.5 (8.4-10.2) mg/dL Total Bilirubin 0.4 (0.0-1.0) mg/dL Direct Bilirubin 0.2 (0.0-0.5) mg/dL AST 9 (5-31) U/L ALT 8 (0-31) U/L Alkaline Phosphatase 95 (39-117) U/L Total Protein 8.2 H (6.5-8.0) g/dL Albumin 3.6 (3.5-5.0) g/dL Urine Color Urine Appearance Urine pH (5.0-8.0) Ur Specific [place] (1.005-1.025) Urine Protein (Neg-Trace) mg/dL Urine Glucose (UA) (Negative) mg/dL Urine Ketones (Negative) mg/dL Urine Blood (Negative) Urine Nitrite (Negative) Ur Leukocyte Esterase (Negative) Urine RBC (0-2) /HPF Urine WBC (0-5) /HPF Ur Squamous Epith Cells (0-2) /HPF Urine Bacteria (None Seen) Hyaline Casts (0-2) /LPF COVID-19 (REE) Negative (Negative) COVID-19 Clin Com See Note 10/11/21 Range/Units 17:05 WBC (4.8-10.8) X10*3/uL RBC (4.20-5.50) X10*6/uL Hgb (12.0-16.0) g/dl Hct (37.0-47.0) % MCV (80.0-98.0) fL MCH (27.0-33.0) pg MCHC (31.0-35.0) g/dl RDW (11.0-16.0) % Plt Count (160-400) X10*3/uL MPV (9.4-12.3) fL Immature Gran % (Auto) (0.0-0.4) % Neut % (Auto) (45-73) % Lymph % (Auto) (20-40) % [place] % (Auto) (2-11) % Eos % (Auto) (0-4) % Baso % (Auto) (0-2) % Lymph # (Auto) (1.2-4.9) X10*3/uL [place] # (Auto) (0.1-1.2) X10*3/uL Eos # (Auto) (0.0-0.4) X10*3/uL Baso # (Auto) (0.0-0.2) X10*3/uL Abs Immat Gran (auto) (0.00-0.03) X10*3/uL Absolute Neuts (auto) (2.0-8.3) x10*3/uL Absolute Nucleated RBC (0.0-0.012) X10*3/uL Nucleated RBC % (auto) (0.0-0.2) /100WBC Sodium (135-145) mmol/L Potassium (3.3-5.1) mmol/L Chloride (96-108) mmol/L Carbon Dioxide (22-29) mmol/L Anion Gap (12-20) BUN (9-16) mg/dL Creatinine (0.5-1.4) mg/dL Estim Creat Clear Calc Estimated GFR Random Glucose (60-115) mg/dL Calcium (8.4-10.2) mg/dL Total Bilirubin (0.0-1.0) mg/dL Direct Bilirubin (0.0-0.5) mg/dL AST (5-31) U/L ALT (0-31) U/L Alkaline Phosphatase (39-117) U/L Total Protein (6.5-8.0) g/dL Albumin (3.5-5.0) g/dL Urine Color Yellow Urine Appearance Turbid Urine pH 8.0 (5.0-8.0) Ur Specific [place] 1.010 (1.005-1.025) Urine Protein 100 (2+) H (Neg-Trace) mg/dL Urine Glucose (UA) Negative (Negative) mg/dL Urine Ketones Negative (Negative) mg/dL Urine Blood Moderate (2+) H (Negative) Urine Nitrite Negative (Negative) Ur Leukocyte Esterase Large (3+) H (Negative) Urine RBC 6-10 H (0-2) /HPF Urine WBC >50 H (0-5) /HPF Ur Squamous Epith Cells 0-2 (0-2) /HPF Urine Bacteria 4+ (None Seen) Hyaline Casts 3-5 (0-2) /LPF COVID-19 (REE) (Negative) COVID-19 Clin Com Discharge Plan Discharge Clinical Impression: Acute UTI, LETHA (acute kidney injury) Patient Disposition: Admitted As Inpatient Discharge Date/Time: 10/12/21 00:24
[2021-10-11 17:18] LABS: Appearance Urine Turbid; Color Urine Yellow; Glucose Urine UA Negative (Negative); Leukocyte Esterase Urine Large (3+) (Negative); Nitrite Urine Negative (Negative); Urine Blood Moderate (2+) (Negative); Urine Ketones Negative (Negative); Urine Protein 100 (2+) mg/dL (Neg-Trace)
[2021-10-11 17:21] VITALS: BP 92/55; PULSE 50; RESP 16; TEMP 36.6; O2SAT 97
[2021-10-11 17:23] LABS: Bacteria Urine 4+ (None Seen); Squamous Epithelial Cell Urine 0-2 /HPF (0-2); UACC Culture Trigger YES; WBC Urine >50 /HPF (0-5)
--- NOTE | 2021-10-11 18:40 | PHA.MEDREC ---
Pharmacy Consult ? Medication Reconciliation Pharmacy has completed the medication reconciliation. Spoke to patient and family
[2021-10-11] MEDS: 0.9 % Sodium Chloride 1,000 ML 999 ML IV (18:45)
[2021-10-11 19:52] VITALS: BP 130/101; PULSE 64; TEMP 36.6; O2SAT 99
--- NOTE | 2021-10-11 20:59 | PC.NURSE ---
verbal order per hospitalist low potassium diet. pt may eat.
--- NOTE | 2021-10-11 21:23 | PM.IMHP ---
History of Present Illness Date of Service: 10/11/21 Chief Complaint: Right flank pain 76-year-old female with a past medical history of hypertension, hyperlipidemia, diabetes, CAD, CKD, chronic bilateral leg weakness, history of cervical spine [id number]; urge incontinence, anxiety, depression, arthritis, chronic pain syndrome; presented to the hospital today with a chief complaint of abdominal pain. Patient reported that she has been having right flank pain for the past 4-5 days. Mentions that she has pain on urination. Denies any blood in the urine. Denies any fever chills cough or sputum production. Mentioned that she had seen her PCP who did routine labs and noted to have elevated creatinine subsequent lasted to go to the ER for further evaluation. Mentions that she has limited mobility, wheelchair bound-attributes to her cervical spine surgery. Denies any chest pain or palpitations. Denies any nausea vomiting or diarrhea. Review of all other systems is negative except mentioned above ER course: Per ER team patient noted to have abnormal urinalysis consistent UTI; creatinine elevated to 4.7 compared to her baseline of 1.5-1.9. CT abdomen showed hydronephrosis/hydroureter/distended bladder/cystitis. Ordered Solis catheter. Admitted to the hospital for further management PMFSH Medical History Anxiety and depression Arthritis Asthma Atrial flutter Chronic kidney disease, stage 3 Chronic pain Diabetes mellitus High cholesterol HTN (hypertension) Hyperglycemia Lateral malleolar fracture Limited mobility Multiple falls Myocardial infarction On anticoagulant therapy On beta lanette at home Urgency incontinence Family History Father No problems noted. Mother Diabetes High blood pressure Stomach cancer Surgical History H/O neck surgery History of cataract extraction History of cystoscopy History of heart artery stent Hx of cholecystectomy Hx of colonoscopy Social History Household Members: None Housing: Apartment Are you a primary director of patient care to a significant other at home: No Do you presently have visiting nurse or other home services: Yes Alcohol intake: current Alcohol intake frequency: does not drink Patient Tobacco Use Status: Former Tobacco user Quit Date: 2004 Tobacco use type: Cigarette Years Smoked: 30-40 years Second Hand Smoke Exposure: No Advance Directives: No Advance Directives Information Provided: No service: No Current occupational status: disabled Meds Allergies Allergy/AdvReac Type Severity Reaction Status Date / Time atorvastatin [ATORVASTATIN] Allergy Intermediate SWELLING Verified 09/29/21 11:00 morphine [MORPHINE] Allergy Intermediate RASH Verified 09/29/21 11:00 zolpidem [From AMBIEN] AdvReac Intermediate SLEEP WALKS Verified 09/29/21 11:00 Active Medications: Current Medications Acetaminophen (Acetaminophen 325 Mg Tablet) 650 mg PO Q6H PRN PRN Reason: Pain, Mild (Pain Scale 1-3) Apixaban (Apixaban 5 Mg Tablet) 5 mg PO BID REPLACED BY [facility] Aspirin (Aspirin Enteric Coated 81 Mg Tablet.Dr) 81 mg PO DAILY REPLACED BY [facility] Dextrose (Dextrose 50 % 25 Gm/50 Ml Syringe) 25 gm IVPUSH Q15M PRN; Protocol PRN Reason: per Hypoglycemia Standing Ord. Gabapentin (Gabapentin 300 Mg Capsule) 300 mg PO TID REPLACED BY [facility] Glucose (Glucose Gel 15 Gm Gel..Gram.) 15 gm PO Q15M PRN; Protocol PRN Reason: per Hypoglycemia Standing Ord. Heparin Sodium (Porcine) (Heparin Sodium,Porcine 5,000 Unit/Ml Vial) 5,000 unit SUBCUT Q8H REPLACED BY [facility] Hydromorphone HCl (Hydromorphone Hcl 0.5 Mg/0.5 Ml Syringe) 0.5 mg IVPUSH Q4H PRN; Protocol PRN Reason: Pain, Severe (Pain Scale 7-10) Sodium Chloride (Ns) 1,000 mls @ 100 mls/hr IVCONT .Q10H REPLACED BY [facility] Ceftriaxone Sodium 1 gm/ (Sodium Chloride) 50 mls @ 100 mls/hr IV Q24H REPLACED BY [facility] Insulin Human Lispro (Insulin Lispro 100 Unit/Ml 3 Ml Vial) 0 unit SUBCUT QIDACHS REPLACED BY [facility]; Protocol Melatonin (Melatonin 3 Mg Tablet) 6 mg PO BEDTIME PRN PRN Reason: Insomnia Metoprolol Tartrate (Metoprolol Tartrate 25 Mg Tablet) 25 mg PO BID REPLACED BY [facility]; Protocol Quetiapine Fumarate (Quetiapine Fumarate 50 Mg Tablet) 150 mg PO BEDTIME PRN PRN Reason: Insomnia Senna (Sennosides 8.6 Mg Tablet) 17.2 mg PO BEDTIME PRN PRN Reason: Constipation Sodium Chloride (0.9 % Sodium Chloride Flush 3 Ml Syringe) 3 ml IVFLUSH QSHIFT MARY CARMEN Venlafaxine HCl (Venlafaxine Hcl Er 37.5 Mg Cap.Er.24h) mg PO DAILY REPLACED BY [facility] Home Medications Medication Instructions Recorded Confirmed Last Taken Type aspirin 81 mg capsule 81 mg PO DAILY 01/21/21 10/11/21 10/11/21 History lancing device with lancets kit #1 ea 03/24/21 09/29/21 Unknown History [facility]) metoprolol tartrate 25 mg tablet 25 mg PO BID 07/15/21 10/11/21 10/11/21 History quetiapine 300 mg tablet 150 mg PO BEDTIME PRN Insomnia 07/15/21 10/11/21 10/11/21 History venlafaxine 37.5 mg 37.5 mg PO DAILY 09/29/21 10/11/21 10/11/21 History capsule,extended release 24 hr gabapentin 400 mg capsule 1 cap PO TID 10/11/21 10/11/21 10/11/21 History gabapentin 600 mg tablet 1 tab PO BEDTIME 10/11/21 10/11/21 10/10/21 History insulin glargine 100 unit/mL (3 15 unit subcut BEDTIME 10/11/21 10/11/21 10/10/21 History mL) subcutaneous pen (Lantus Solostar U-100 Insulin) lisinopril 20 1 tab PO DAILY 10/11/21 10/11/21 10/11/21 History mg-hydrochlorothiazide 25 mg tablet Physical Exam Vital Signs and Narrative: Vital Signs: Last Vital Signs Temp 97.9 F 10/11/21 19:52 Pulse 64 10/11/21 19:52 Resp 16 10/11/21 17:21 BP 130/101 H 10/11/21 19:52 Pulse Ox 99 10/11/21 19:52 O2 Del Method 10/11/21 19:52 BMI result Body Mass Index 38.7 Gen: Appears be in no acute distress HEENT: NCAT, Moist mucosa. Pulmonary: Vesicular breath sounds, fair air entry CVS: Normal S1-S2 Abdomen: BS+, Soft, tender in the right flank, CVA tenderness positive on the right side Extremities: Warm well perfused Neuro: Alert and awake. Results Labs CBC and Chem 7: 10/11/21 12:13 10/11/21 12:13 Labs: Laboratory Results - last 24 hr 10/11/21 10/11/21 10/11/21 12:13 12:13 12:13 MCV 89.3 MCH 27.5 MCHC 30.8 L RDW 14.0 Plt Count 484 H MPV 9.9 Immature Gran % (Auto) 0.4 Neut % (Auto) 70.7 Lymph % (Auto) 16.7 L [place] % (Auto) 9.8 Eos % (Auto) 1.9 Baso % (Auto) 0.5 Lymph # (Auto) 1.6 [place] # (Auto) 0.9 Eos # (Auto) 0.2 Baso # (Auto) 0.1 Abs Immat Gran (auto) 0.04 H Absolute Neuts (auto) 6.6 Absolute Nucleated RBC 0.000 Nucleated RBC % (auto) 0.0 Anion Gap 19 Estim Creat Clear Calc 17.4 Estimated GFR 14 Random Glucose 170 H Calcium 8.5 Total Bilirubin 0.4 Direct Bilirubin 0.2 AST 9 ALT 8 Alkaline Phosphatase 95 Total Protein 8.2 H Albumin 3.6 Urine Color Urine Appearance Urine pH Ur Specific [place] Urine Protein Urine Glucose (UA) Urine Ketones Urine Blood Urine Nitrite Ur Leukocyte Esterase Urine RBC Urine WBC Ur Squamous Epith Cells Urine Bacteria Hyaline Casts COVID-19 (REE) Negative COVID-19 Clin Com See Note 10/11/21 17:05 MCV MCH MCHC RDW Plt Count MPV Immature Gran % (Auto) Neut % (Auto) Lymph % (Auto) [place] % (Auto) Eos % (Auto) Baso % (Auto) Lymph # (Auto) [place] # (Auto) Eos # (Auto) Baso # (Auto) Abs Immat Gran (auto) Absolute Neuts (auto) Absolute Nucleated RBC Nucleated RBC % (auto) Anion Gap Estim Creat Clear Calc Estimated GFR Random Glucose Calcium Total Bilirubin Direct Bilirubin AST ALT Alkaline Phosphatase Total Protein Albumin Urine Color Yellow Urine Appearance Turbid Urine pH 8.0 Ur Specific [place] 1.010 Urine Protein 100 (2+) H Urine Glucose (UA) Negative Urine Ketones Negative Urine Blood Moderate (2+) H Urine Nitrite Negative Ur Leukocyte Esterase Large (3+) H Urine RBC 6-10 H Urine WBC >50 H Ur Squamous Epith Cells 0-2 Urine Bacteria 4+ Hyaline Casts 3-5 COVID-19 (REE) COVID-19 Clin Com Imaging Radiologist's Impressions: Impressions Abdomen/Pelvis CT 10/11/21 20:34 IMPRESSION: Bilateral hydronephrosis and hydroureter. The tortuous dilated ureters are extending up to a mildly distended bladder. Bladder demonstrates diffuse wall thickening for the degree of distention. Underlying cystitis could have this appearance. Neurogenic bladder possible as well. Correlation with urinalysis recommended.. Assessment and Plan (1) Type 2 diabetes mellitus with unspecified complications: Status: Acute (2) Acute UTI: Status: Acute (3) Hydronephrosis: Status: Acute (4) LETHA (acute kidney injury): Status: Acute Plan 76-year-old female with a past medical history of hypertension, hyperlipidemia, diabetes, CAD, CKD, chronic bilateral leg weakness, history of cervical spine [id number]; urge incontinence, anxiety, depression, arthritis, chronic pain syndrome; presented to the hospital today with a chief complaint of abdominal pain. Noted to have following conditions UTI: Concern for pyelonephritis. Continue ceftriaxone. Follow up cultures. Hydronephrosis/hydroureter/distended bladder: Patient has a history of neurogenic bladder. Will request for Solis catheter to placed. Urology consult LETHA: Likely postrenal. Solis catheter placed. Avoid nephrotoxins. Renally dose home medications. Nephrology consult. Patient's baseline creatinine is around 1.5-1.9. Chronic medical conditions: History of neuropathy: Patient's home gabapentin reduced to 300 mg t.i.d..(patient was on gabapentin 4 mg t.i.d. plus gabapentin 600 mg at bedtime.) History of diabetes: Hold home insulin regimen for now. Insulin sliding scale for now. History of CAD: Continue home aspirin History of AFib: Continue home Eliquis. Rate controlled. Continue metoprolol History of depression: Continue home Seroquel, venlafaxine DVT prophylaxis: Patient on Eliquis Code status: Full code Quality Stroke Does the patient have a stroke diagnosis?: No VTE Prior VTE?: No VTE Risk Level:: Medical - moderate - high VTE Device Contraindication: Treatment Not Indicated VTE Drug Contraindication: N/A - Med Ordered
--- NOTE | 2021-10-11 22:16 | MHC.CM.PN ---
Pt sleeping with covers over head. Unable to meet with patient at this time for CM D/C planning. CM will follow when pt awake.
[2021-10-11] MEDS: 0.9 % Sodium Chloride 1,000 ML 100 ML IVCONT (22:47)
[2021-10-11] MEDS: cefTRIAXone sodium 1 GM in 0.9 % Sodium Chloride 50 ML IV (22:47)
[2021-10-11 23:48] VITALS: BP 129/103; PULSE 69; RESP 16; TEMP 36.5; O2SAT 99
--- NOTE | 2021-10-11 23:55 | PC.NURSE ---
Patient incontinent urine. cleaned up, linen changed, clothing changed
--- NOTE | 2021-10-11 23:59 | PC.NURSE ---
Report to Surekha VELA prior to transfer to floor
[2021-10-12] VITALS (8 sets, daily range): BP systolic 129–184; BP diastolic 58–92; PULSE 58–105; RESP 16–18; TEMP 36–37; O2SAT 96–100; BMI 38.7
[2021-10-12] MEDS: Metoprolol Tartrate 25 MG TABLET PO ×2 (04:19→19:45)
[2021-10-12] MEDS: HYDROmorphone HCl 0.5 MG/0.5 ML SYRINGE IVPUSH ×2 (04:20→15:24)
[2021-10-12] MEDS: Acetaminophen 325 MG TABLET 650 MG PO (04:20)
[2021-10-12 06:27] LABS: MANUAL DIFF FLAG NO
[2021-10-12 06:33] LABS: Basophils Absolute Auto 0.1 X10*3/uL (0.0-0.2); Basophils Percent Auto 0.5 % (0-2); Eosinophils Absolute Auto 0.2 X10*3/uL (0.0-0.4); Eosinophils Percent Auto 1.3 % (0-4); Hematocrit 36.8 % (37.0-47.0); Hemoglobin 11.2 g/dl (12.0-16.0); Imm Gran Abs Auto 0.05 X10*3/uL (0.00-0.03); Imm Gran Pct Auto 0.4 % (0.0-0.4); Lymphocytes Absolute Auto 1.3 X10*3/uL (1.2-4.9); Lymphocytes Percent Auto 11.1 % (20-40); Mean Corpuscular HGB Conc 30.4 g/dl (31.0-35.0); Mean Corpuscular Hemoglobin 27.6 pg (27.0-33.0); Mean Corpuscular Volume 90.6 fL (80.0-98.0); Mean Platelet Volume 10.5 fL (9.4-12.3); Monocytes Percent Auto 8.7 % (2-11); Neutrophils Absolute Auto 8.8 x10*3/uL (2.0-8.3); Platelet Count 482 X10*3/uL (160-400); Red Blood Count 4.06 X10*6/uL (4.20-5.50); White Blood Count 11.3 X10*3/uL (4.8-10.8)
[2021-10-12 06:45] LABS: Anion Gap 17 (12-20); Blood Urea Nitrogen 61 mg/dL (9-16); Calcium 8.3 mg/dL (8.4-10.2); Carbon Dioxide 19 mmol/L (22-29); Chloride 111 mmol/L (96-108); Creatinine Clr Calc Pharmacy 21.2; Estimated Glomerular Filt Rate 18; Glucose Random 194 mg/dL (60-115); Potassium 5.1 mmol/L (3.3-5.1); Sodium 142 mmol/L (135-145)
[2021-10-12 07:35] LABS: Glucose, Whole Blood 170 mg/dL (60-115)
[2021-10-12] MEDS: Venlafaxine HCl ER 37.5 MG CAP.ER.24H PO (09:20)
[2021-10-12] MEDS: Apixaban 5 MG TABLET PO ×2 (09:20→19:45)
[2021-10-12] MEDS: Gabapentin 300 MG CAPSULE PO ×3 (09:20→19:45)
[2021-10-12] MEDS: Aspirin Enteric Coated 81 MG TABLET.DR PO (09:20)
[2021-10-12] MEDS: Insulin Lispro 100 UNIT/ML 3 ML VIAL SUBCUT ×2 (09:21→11:53)
[2021-10-12] MEDS: 0.9 % Sodium Chloride 1,000 ML 100 ML IVCONT ×2 (09:22→19:30)
[2021-10-12 11:29] LABS: Glucose, Whole Blood 221 mg/dL (60-115)
--- NOTE | 2021-10-12 11:47 | MHC.CM.PN ---
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 SHE RECEIVES 18 HOURS WEEKLY FOR DAY/EVENING AND 14 WEEKLY NIGHT HOURS. SHE AMBULATES WITH A POWER CHAIR. ALFREDO NORMAN'D X2 ABDULAZIZ, PCP: LENNY BASILIO, WILL GO HOME USING HER POWERCHAIR WITH FINISH[employer] TAILOR APPRENTICE SUPERVISION. PT EDUCATED ON HCP, DECLINED TO COMPLETE ON AT THIS TIME. D/C PLAN: HOME RESUME FINISHER TAILOR APPRENTICE SERVICES
--- NOTE | 2021-10-12 14:53 | P.PNIM_ITS ---
Subjective Subjective Date of Service: 10/12/21 Interval History: Feels tired, abdominal discomfort and dysuria resolved, tolerating diet no nausea no vomiting or diarrhea, no fevers no chills, granddaughter at bedside inform the patient Solis catheter was removed by Urology at that time she was doing fine with no urinary urgency frequency and had no voiding issues up until few days ago. Review of Systems Review of Systems: Yes all other systems are reviewed and are negative Physical Exam Vital Signs: Vital Signs: Last Vital Signs Temp 96.8 F 10/12/21 11:39 Pulse 60 10/12/21 11:39 Resp 16 10/12/21 11:39 BP 146/65 H 10/12/21 11:39 Pulse Ox 96 10/12/21 11:39 O2 Del Method 10/12/21 11:39 BMI result Body Mass Index 38.7 Const: Other: General awake alert x3,no acute distress.? Neck? no JVD. CVS? regular rate rhythm, Respiratory lungs clear to auscultation, no respiratory distress, no wheeze, no rhonchi. Gastrointestinal abdomen soft, obese, nontender, bowel sounds audible Extremities no? edema. Back no CVA tenderness Neuro nonfocal Skin no rash Psych appropriate affect Objective Data Active Medications Acetaminophen (Acetaminophen 325 Mg Tablet) 650 mg PO Q6H PRN PRN Reason: Pain, Mild (Pain Scale 1-3) Last Admin: 10/12/21 04:20 Dose: 650 mg Documented By: CLARA Apixaban (Apixaban 5 Mg Tablet) 5 mg PO BID [facility] Last Admin: 10/12/21 09:20 Dose: 5 mg Documented By: AQUILES Aspirin (Aspirin Enteric Coated 81 Mg Tablet.) 81 mg PO DAILY [facility] Last Admin: 10/12/21 09:20 Dose: 81 mg Documented By: AQUILES Dextrose (Dextrose 50 % 25 Gm/50 Ml Syringe) 25 gm IVPUSH Q15M PRN; Protocol PRN Reason: per Hypoglycemia Standing Ord. Gabapentin (Gabapentin 300 Mg Capsule) 300 mg PO TID [facility] Last Admin: 10/12/21 09:20 Dose: 300 mg Documented By: AQUILES Glucose (Glucose Gel 15 Gm Gel..Gram.) 15 gm PO Q15M PRN; Protocol PRN Reason: per Hypoglycemia Standing Ord. Hydromorphone HCl (Hydromorphone Hcl 0.5 Mg/0.5 Ml Syringe) 0.5 mg IVPUSH Q4H PRN; Protocol PRN Reason: Pain, Severe (Pain Scale 7-10) Last Admin: 10/12/21 04:20 Dose: 0.5 mg Documented By: CLARA Sodium Chloride (Ns) 1,000 mls @ 100 mls/hr IVCONT .Q10H [facility] Last Admin: 10/12/21 09:22 Dose: 100 mls/hr Documented By: AQUILES Ceftriaxone Sodium 1 gm/ (Sodium Chloride) 50 mls @ 100 mls/hr IV Q24H [facility] Last Infusion: 10/11/21 23:22 Dose: 0 mls/hr Documented By: LUCA Insulin Human Lispro (Insulin Lispro 100 Unit/Ml 3 Ml Vial) 0 unit SUBCUT QIDACHS [facility]; Protocol Last Admin: 10/12/21 11:53 Dose: 4 unit Documented By: AQUILES Melatonin (Melatonin 3 Mg Tablet) 6 mg PO BEDTIME PRN PRN Reason: Insomnia Metoprolol Tartrate (Metoprolol Tartrate 25 Mg Tablet) 25 mg PO BID [facility]; Protocol Last Admin: 10/12/21 04:19 Dose: 25 mg Documented By: CLARA Quetiapine Fumarate (Quetiapine Fumarate 50 Mg Tablet) 150 mg PO BEDTIME PRN PRN Reason: Insomnia Senna (Sennosides 8.6 Mg Tablet) 17.2 mg PO BEDTIME PRN PRN Reason: Constipation Sodium Chloride (0.9 % Sodium Chloride Flush 3 Ml Syringe) 3 ml IVFLUSH QSHIFT [facility] Last Admin: 10/12/21 09:21 Dose: Not Given Documented By: AQUILES Non-Admin Reason: IV Running Venlafaxine HCl (Venlafaxine Hcl Er 37.5 Mg Cap.Er.24h) 37.5 mg PO DAILY [facility] Last Admin: 10/12/21 09:20 Dose: 37.5 mg Documented By: AQUILES Labs CBC & Chem 7: 10/12/21 05:30 10/12/21 05:30 Labs: Laboratory Results - last 24 hr 10/11/21 10/12/21 10/12/21 17:05 05:30 05:30 MCV 90.6 MCH 27.6 MCHC 30.4 L RDW 14.0 Plt Count 482 H MPV 10.5 Immature Gran % (Auto) 0.4 Neut % (Auto) 78.0 H Lymph % (Auto) 11.1 L [place] % (Auto) 8.7 Eos % (Auto) 1.3 Baso % (Auto) 0.5 Lymph # (Auto) 1.3 [place] # (Auto) 1.0 Eos # (Auto) 0.2 Baso # (Auto) 0.1 Abs Immat Gran (auto) 0.05 H Absolute Neuts (auto) 8.8 H Absolute Nucleated RBC 0.000 Nucleated RBC % (auto) 0.0 Anion Gap 17 Estim Creat Clear Calc 21.2 Estimated GFR 18 POC Glucose Random Glucose 194 H Calcium 8.3 L Urine Color Yellow Urine Appearance Turbid Urine pH 8.0 Ur Specific Kevin 1.010 Urine Protein 100 (2+) H Urine Glucose (UA) Negative Urine Ketones Negative Urine Blood Moderate (2+) H Urine Nitrite Negative Ur Leukocyte Esterase Large (3+) H Urine RBC 6-10 H Urine WBC >50 H Ur Squamous Epith Cells 0-2 Urine Bacteria 4+ Hyaline Casts 3-5 10/12/21 10/12/21 07:30 11:17 MCV MCH MCHC RDW Plt Count MPV Immature Gran % (Auto) Neut % (Auto) Lymph % (Auto) [place] % (Auto) Eos % (Auto) Baso % (Auto) Lymph # (Auto) [place] # (Auto) Eos # (Auto) Baso # (Auto) Abs Immat Gran (auto) Absolute Neuts (auto) Absolute Nucleated RBC Nucleated RBC % (auto) Anion Gap Estim Creat Clear Calc Estimated GFR POC Glucose 170 H 221 H Random Glucose Calcium Urine Color Urine Appearance Urine pH Ur Specific Kevin Urine Protein Urine Glucose (UA) Urine Ketones Urine Blood Urine Nitrite Ur Leukocyte Esterase Urine RBC Urine WBC Ur Squamous Epith Cells Urine Bacteria Hyaline Casts Microbiology Microbiology Results: Microbiology 10/11/21 18:09 Urine Culture - Preliminary Urine clean catch - Urine medina top Gram negative tanisha Assessment and Plan (1) LETHA (acute kidney injury): Status: Acute (2) Hydronephrosis: Status: Acute (3) History of myocardial infarction: Status: Acute (4) Type 2 diabetes mellitus with unspecified complications: Status: Acute (5) Paroxysmal atrial fibrillation: Status: Acute Plan 76-year-old female with a past medical history of hypertension, hyperlipidemia, diabetes, CAD, CKD, chronic bilateral leg weakness, history of cervical spine [id number]; urge incontinence, anxiety, depression, arthritis, chronic pain syndrome; presented to the hospital today with a chief complaint of abdominal pain and dysuria.? Acute UTI:? And no fevers chills no evidence of sepsis, continue IV ceftriaxone, urine culture growing Gram-negative tanisha, will follow final urine culture cultures. Bilateral Hydronephrosis/hydroureter/distended bladder:? Patient has a history of neurogenic bladder, recently seen by Urology and Solis catheter removed,.? Will request for Solis catheter to placed.? Urology consult LETHA: Likely postrenal , however renal function improving without Solis catheter, will continue to follow if renal function remains elevated will place Solis catheter, avoid nephrotoxins.? Renally dose home medications.? Patient's baseline creatinine is around 1.5-1.9. Await nephro and urology input, question need treatment for neurogenic bladder Chronic medical conditions: History of neuropathy:? Patient's home gabapentin reduced to 300 mg t.i.d. History of diabetes:? Hold home insulin regimen for now, continue Insulin sliding scale and diabetic diet History of CAD: Continue home aspirin, statin and beta-lanette History of paroxysmal AFib: Continue home Eliquis, chads vascular score of 5,rate controlled,continue metoprolol. History of depression:? Continue home Seroquel, and venlafaxine DVT prophylaxis:?Eliquis Code status: Full code Patient will need continued inpatient hospitalization for acute renal injury requiring further workup as well as acute UTI on IV antibiotic Quality Stroke Does the patient have a stroke diagnosis?: No VTE Prior VTE?: No VTE Risk Level:: Medical - moderate - high VTE Device Contraindication: Treatment Not Indicated VTE Drug Contraindication: N/A - Med Ordered
[2021-10-12 15:29] LABS: Glucose, Whole Blood 157 mg/dL (60-115)
--- NOTE | 2021-10-12 19:03 | P.CONNP_ITS ---
History of Present Illness Reason for Consult Consult date: 10/12/21 Reason for consult: LETHA Chief Complaint Chief complaint: UTI History of Present Illness Narrative: 76-year-old female with CKD, chronic bilateral leg weakness presented to the hospital with abdominal pain.?she has been having right flank pain for the past 4-5 days.? Mentions that she has pain on urination.? Denies any blood in the urine.? Denies any fever chills cough or sputum production.?PCP who did routine labs and noted to have elevated creatinine subsequent lasted to go to the ER for further evaluation.?Denies any nausea vomiting or diarrhea.? Nephrology has been consulted to assist in her clinical care during her current hospital stay Review of Systems Review of Systems Yes all other systems are reviewed and are negative PMFSH Past Medical History Medical History Anxiety and depression Arthritis Asthma Atrial flutter Chronic kidney disease, stage 3 Chronic pain Diabetes mellitus High cholesterol HTN (hypertension) Hyperglycemia Lateral malleolar fracture Limited mobility Multiple falls Myocardial infarction On anticoagulant therapy On beta lanette at home Urgency incontinence Family History Family History Father No problems noted. Mother Diabetes High blood pressure Stomach cancer Surgical History Surgical History H/O neck surgery History of cataract extraction History of cystoscopy History of heart artery stent Hx of cholecystectomy Hx of colonoscopy Social History Social History Household Members: None Housing: Apartment Are you a primary disabilities caregiver to a significant other at home: No Do you presently have visiting nurse or other home services: Yes Alcohol intake: current Alcohol intake frequency: does not drink Patient Tobacco Use Status: Former Tobacco user Quit Date: 2004 Tobacco use type: Cigarette Years Smoked: 30-40 years Second Hand Smoke Exposure: No Use of substances other than those prescribed or required for medical reasons: No Are you made to feel afraid or neglected: No Advance Directives: No Advance Directives Information Provided: No Advance Directives on File: No Do you have thoughts of harming others: None Do you have a plan to hurt others: No Plan Recently lost weight without trying: No Nutrition Risks: No Nutritional Risk Patient : No : No Poor oral hygiene: No service: No Current occupational status: disabled Meds Allergies Allergy/AdvReac Type Severity Reaction Status Date / Time atorvastatin [ATORVASTATIN] Allergy Intermediate SWELLING Verified 09/29/21 11:00 morphine [MORPHINE] Allergy Intermediate RASH Verified 09/29/21 11:00 zolpidem [From AMBIEN] AdvReac Intermediate SLEEP WALKS Verified 09/29/21 11:00 Active Medications: Current Medications Acetaminophen (Acetaminophen 325 Mg Tablet) 650 mg PO Q6H PRN PRN Reason: Pain, Mild (Pain Scale 1-3) Last Admin: 10/12/21 04:20 Dose: 650 mg Apixaban (Apixaban 5 Mg Tablet) 5 mg PO BID [facility] Last Admin: 10/12/21 09:20 Dose: 5 mg Aspirin (Aspirin Enteric Coated 81 Mg Tablet.Dr) 81 mg PO DAILY [facility] Last Admin: 10/12/21 09:20 Dose: 81 mg Dextrose (Dextrose 50 % 25 Gm/50 Ml Syringe) 25 gm IVPUSH Q15M PRN; Protocol PRN Reason: per Hypoglycemia Standing Ord. Gabapentin (Gabapentin 300 Mg Capsule) 300 mg PO TID [facility] Last Admin: 10/12/21 15:24 Dose: 300 mg Glucose (Glucose Gel 15 Gm Gel..Gram.) 15 gm PO Q15M PRN; Protocol PRN Reason: per Hypoglycemia Standing Ord. Hydromorphone HCl (Hydromorphone Hcl 0.5 Mg/0.5 Ml Syringe) 0.5 mg IVPUSH Q4H PRN; Protocol PRN Reason: Pain, Severe (Pain Scale 7-10) Last Admin: 10/12/21 15:24 Dose: 0.5 mg Sodium Chloride (Ns) 1,000 mls @ 100 mls/hr IVCONT .Q10H [facility] Last Admin: 10/12/21 09:22 Dose: 100 mls/hr Ceftriaxone Sodium 1 gm/ (Sodium Chloride) 50 mls @ 100 mls/hr IV Q24H [facility] Last Infusion: 10/11/21 23:22 Dose: Infused Insulin Human Lispro (Insulin Lispro 100 Unit/Ml 3 Ml Vial) 0 unit SUBCUT QIDACHS [facility]; Protocol Last Admin: 10/12/21 17:19 Dose: Not Given Melatonin (Melatonin 3 Mg Tablet) 6 mg PO BEDTIME PRN PRN Reason: Insomnia Metoprolol Tartrate (Metoprolol Tartrate 25 Mg Tablet) 25 mg PO BID [facility]; Protocol Last Admin: 10/12/21 04:19 Dose: 25 mg Quetiapine Fumarate (Quetiapine Fumarate 50 Mg Tablet) 150 mg PO BEDTIME PRN PRN Reason: Insomnia Senna (Sennosides 8.6 Mg Tablet) 17.2 mg PO BEDTIME PRN PRN Reason: Constipation Sodium Chloride (0.9 % Sodium Chloride Flush 3 Ml Syringe) 3 ml IVFLUSH QSHIFT [facility] Last Admin: 10/12/21 15:25 Dose: Not Given Venlafaxine HCl (Venlafaxine Hcl Er 37.5 Mg Cap.Er.24h) 37.5 mg PO DAILY [facility] Last Admin: 10/12/21 09:20 Dose: 37.5 mg Home Medications Medication Instructions Recorded Confirmed Last Taken Type aspirin 81 mg capsule 81 mg PO DAILY 01/21/21 10/11/21 10/11/21 History lancing device with lancets kit #1 ea 03/24/21 09/29/21 Unknown History ([facility] Lancing Device kit) metoprolol tartrate 25 mg tablet 25 mg PO BID 07/15/21 10/11/21 10/11/21 History quetiapine 300 mg tablet 150 mg PO BEDTIME PRN Insomnia 07/15/21 10/11/21 10/11/21 History venlafaxine 37.5 mg 37.5 mg PO DAILY 09/29/21 10/11/21 10/11/21 History capsule,extended release 24 hr gabapentin 400 mg capsule 1 cap PO TID 10/11/21 10/11/21 10/11/21 History gabapentin 600 mg tablet 1 tab PO BEDTIME 10/11/21 10/11/21 10/10/21 History insulin glargine 100 unit/mL (3 15 unit subcut BEDTIME 10/11/21 10/11/21 2 History mL) subcutaneous pen (Lantus Solostar U-100 Insulin) lisinopril 20 1 tab PO DAILY 10/11/21 10/11/21 10/11/21 History mg-hydrochlorothiazide 25 mg tablet Physical Exam Vital Signs: Last Vital Signs Temp 97.8 F 10/12/21 15:26 Pulse 64 10/12/21 15:26 Resp 18 10/12/21 15:26 BP 152/62 H 10/12/21 15:26 Pulse Ox 96 10/12/21 15:26 O2 Del Method 10/12/21 15:26 BMI result Body Mass Index 38.7 Const General: no acute distress Eyes EOM: EOMs intact bilaterally Neck Neck: Yes supple Resp Auscultation: diminished lung sounds Cardio Rate: regular rate GI Palpation (GI): Soft to palpation Skin General skin exam: no rashes or lesions noted Results Lab Results Result Diagrams: 10/12/21 05:30 10/12/21 05:30 Lab results: Chemistry 10/11/21 10/12/21 12:13 05:30 Sodium 143 142 Potassium 4.8 5.1 Carbon Dioxide 19 L 19 L BUN 71 H 61 H Creatinine 3.17 H 2.62 H Calcium 8.5 8.3 L Hematology 10/11/21 10/12/21 12:13 05:30 WBC 9.3 11.3 H Hgb 11.1 L 11.2 L Plt Count 484 H 482 H Urinalysis 10/11/21 17:05 Urine Color Yellow Urine Appearance Turbid Urine pH 8.0 Ur Specific [place] 1.010 Urine Protein 100 (2+) H Urine Glucose (UA) Negative Urine Ketones Negative Urine Blood Moderate (2+) H Urine Nitrite Negative Ur Leukocyte Esterase Large (3+) H Urine RBC 6-10 H Urine WBC >50 H Ur Squamous Epith Cells 0-2 Hyaline Casts 3-5 Assessment and Plan (1) LETHA (acute kidney injury): Status: Acute Plan LETHA multifactorial- Has B/L hydro + increased cytokines from sepsis Urology consult; Urine drained. Renal function improving Getting antibiotics; Has CKD 3 b at baseline Continue current supportive care for now; Labs AM Procedures Date of Service Date of Service: 10/12/21
[2021-10-12 19:29] LABS: Glucose, Whole Blood 145 mg/dL (60-115)
--- NOTE | 2021-10-12 19:56 | PC.NURSE ---
Per Dr Jones and Dr Luu, belcher catheter reinserted at 1745 for urinary retention and overflow incontinence. Belcher drained initially about 400ml of milky urine with white sediment, noted to be slighly pink at first. made aware.
[2021-10-12] MEDS: cefTRIAXone sodium 1 GM in 0.9 % Sodium Chloride 50 ML IV (21:39)
[2021-10-12] MEDS: 0.9 % Sodium Chloride Flush 3 ML SYRINGE IVFLUSH (21:44)
[2021-10-13 03:36] VITALS: BP 162/68; PULSE 67; RESP 18; TEMP 36.6; O2SAT 96
[2021-10-13 06:47] LABS: Hematocrit 34.9 % (37.0-47.0); Hemoglobin 10.4 g/dl (12.0-16.0); Mean Corpuscular HGB Conc 29.8 g/dl (31.0-35.0); Mean Corpuscular Hemoglobin 27.7 pg (27.0-33.0); Mean Corpuscular Volume 93.1 fL (80.0-98.0); Mean Platelet Volume 11.7 fL (9.4-12.3); Platelet Count 269 X10*3/uL (160-400); Red Blood Count 3.75 X10*6/uL (4.20-5.50); Red Cell Distribution Width 14.2 % (11.0-16.0); White Blood Count 7.5 X10*3/uL (4.8-10.8)
[2021-10-13 07:08] VITALS: BP 163/75; PULSE 76; RESP 18; TEMP 37.1; O2SAT 97
[2021-10-13 07:30] LABS: Glucose, Whole Blood 130 mg/dL (60-115)
[2021-10-13] MEDS: Gabapentin 300 MG CAPSULE PO ×3 (08:29→22:13)
[2021-10-13] MEDS: Venlafaxine HCl ER 37.5 MG CAP.ER.24H PO (08:29)
[2021-10-13] MEDS: Apixaban 5 MG TABLET PO ×2 (08:29→22:13)
[2021-10-13] MEDS: Metoprolol Tartrate 25 MG TABLET PO ×2 (08:29→22:13)
[2021-10-13] MEDS: Aspirin Enteric Coated 81 MG TABLET.DR PO (08:29)
[2021-10-13] MEDS: 0.9 % Sodium Chloride Flush 3 ML SYRINGE IVFLUSH ×3 (08:30→23:34)
[2021-10-13] MEDS: 0.9 % Sodium Chloride 1,000 ML 100 ML IVCONT (08:35)
[2021-10-13 09:13] LABS: Anion Gap 14 (12-20); Blood Urea Nitrogen 50 mg/dL (9-16); Calcium 8.2 mg/dL (8.4-10.2); Carbon Dioxide 20 mmol/L (22-29); Chloride 114 mmol/L (96-108); Creatinine Clr Calc Pharmacy 25.8; Estimated Glomerular Filt Rate 23; Glucose Random 148 mg/dL (60-115); Potassium 5.1 mmol/L (3.3-5.1); Sodium 143 mmol/L (135-145)
--- NOTE | 2021-10-13 09:59 | HO.PM.IMPN ---
Subjective Subjective Date of Service: 10/13/21 Interval History: Offers no acute complaints denies abdominal pain, denies nausea, vomiting, no urinary symptoms, Solis catheter with clear yellow urine, no acute overnight events. History obtained via wood heel flap trimmer Review of Systems [employer] no headache no dizziness CVS no chest pain GI no nausea, no vomiting Review of Systems: Yes all other systems are reviewed and are negative Physical Exam Vital Signs: Vital Signs: Last Vital Signs Temp 98.8 F 10/13/21 07:08 Pulse 76 10/13/21 07:08 Resp 18 10/13/21 07:08 BP 163/75 H 10/13/21 07:08 Pulse Ox 97 10/13/21 07:08 O2 Del Method 10/13/21 07:08 BMI result Body Mass Index 38.7 Const: Other: General awake alert x3,no acute distress.? Neck? no JVD. CVS? regular rate rhythm, Respiratory lungs clear to auscultation, no respiratory distress, no wheeze, no rhonchi. Gastrointestinal abdomen soft, obese, nontender, bowel sounds audible Extremities no? edema. Back no CVA tenderness Neuro nonfocal Skin no rash Psych appropriate affect Objective Data Active Medications Acetaminophen (Acetaminophen 325 Mg Tablet) 650 mg PO Q6H PRN PRN Reason: Pain, Mild (Pain Scale 1-3) Last Admin: 10/12/21 04:20 Dose: 650 mg Documented By: CLARA Apixaban (Apixaban 5 Mg Tablet) 5 mg PO BID [facility] Last Admin: 10/13/21 08:29 Dose: 5 mg Documented By: JOSIE Aspirin (Aspirin Enteric Coated 81 Mg Tablet.) 81 mg PO DAILY [facility] Last Admin: 10/13/21 08:29 Dose: 81 mg Documented By: JOSIE Dextrose (Dextrose 50 % 25 Gm/50 Ml Syringe) 25 gm IVPUSH Q15M PRN; Protocol PRN Reason: per Hypoglycemia Standing Ord. Gabapentin (Gabapentin 300 Mg Capsule) 300 mg PO TID [facility] Last Admin: 10/13/21 08:29 Dose: 300 mg Documented By: JOSIE Glucose (Glucose Gel 15 Gm Gel..Gram.) 15 gm PO Q15M PRN; Protocol PRN Reason: per Hypoglycemia Standing Ord. Hydromorphone HCl (Hydromorphone Hcl 0.5 Mg/0.5 Ml Syringe) 0.5 mg IVPUSH Q4H PRN; Protocol PRN Reason: Pain, Severe (Pain Scale 7-10) Last Admin: 10/12/21 15:24 Dose: 0.5 mg Documented By: AQUILES Sodium Chloride (Ns) 1,000 mls @ 100 mls/hr IVCONT .Q10H [facility] Last Admin: 10/13/21 08:35 Dose: 100 mls/hr Documented By: JOSIE Ceftriaxone Sodium 1 gm/ (Sodium Chloride) 50 mls @ 100 mls/hr IV Q24H [facility] Last Infusion: 10/12/21 22:09 Dose: 0 mls/hr Documented By: PARAS Insulin Human Lispro (Insulin Lispro 100 Unit/Ml 3 Ml Vial) 0 unit SUBCUT QIDACHS [facility]; Protocol Last Admin: 10/13/21 07:56 Dose: Not Given Documented By: JOSIE Non-Admin Reason: No Insulin Coverage Melatonin (Melatonin 3 Mg Tablet) 6 mg PO BEDTIME PRN PRN Reason: Insomnia Metoprolol Tartrate (Metoprolol Tartrate 25 Mg Tablet) 25 mg PO BID [facility]; Protocol Last Admin: 10/13/21 08:29 Dose: 25 mg Documented By: JOSIE Quetiapine Fumarate (Quetiapine Fumarate 50 Mg Tablet) 150 mg PO BEDTIME PRN PRN Reason: Insomnia Senna (Sennosides 8.6 Mg Tablet) 17.2 mg PO BEDTIME PRN PRN Reason: Constipation Sodium Chloride (0.9 % Sodium Chloride Flush 3 Ml Syringe) 3 ml IVFLUSH QSHIFT [facility] Last Admin: 10/13/21 08:30 Dose: 3 ml Documented By: JOSIE Venlafaxine HCl (Venlafaxine Hcl Er 37.5 Mg Cap.Er.24h) 37.5 mg PO DAILY [facility] Last Admin: 10/13/21 08:29 Dose: 37.5 mg Documented By: JOSIE Labs CBC & Chem 7: 10/13/21 05:34 10/13/21 08:09 Labs: Laboratory Results - last 24 hr 10/12/21 10/12/21 10/12/21 11:17 15:15 19:22 MCV MCH MCHC RDW Plt Count MPV Absolute Nucleated RBC Nucleated RBC % (auto) Anion Gap Estim Creat Clear Calc Estimated GFR POC Glucose 221 H 157 H 145 H Random Glucose Calcium 10/13/21 10/13/21 10/13/21 05:34 07:11 08:09 MCV 93.1 MCH 27.7 MCHC 29.8 L RDW 14.2 Plt Count 269 D MPV 11.7 Absolute Nucleated RBC 0.000 Nucleated RBC % (auto) 0.0 Anion Gap 14 Estim Creat Clear Calc 25.8 Estimated GFR 23 POC Glucose 130 H Random Glucose 148 H Calcium 8.2 L Microbiology Microbiology Results: Microbiology 10/11/21 18:09 Urine Culture - Final Urine clean catch - Urine medina top Pluralibacter gergoviae Assessment and Plan (1) LETHA (acute kidney injury): Status: Acute (2) Hydronephrosis: Status: Acute (3) History of myocardial infarction: Status: Acute (4) Type 2 diabetes mellitus with unspecified complications: Status: Acute (5) Paroxysmal atrial fibrillation: Status: Acute Plan 76-year-old female with a past medical history of hypertension, hyperlipidemia, diabetes, CAD, CKD, chronic bilateral leg weakness, history of cervical spine [id number]; urge incontinence, anxiety, depression, arthritis, chronic pain syndrome; presented to the hospital today with a chief complaint of abdominal pain and dysuria.? Acute UTI:? Feeling better no overnight fevers chills, continue IV ceftriaxone day 2, urine culture growing Gram-negative rods Bilateral Hydronephrosis/hydroureter/distended bladder:? Patient has a history of neurogenic bladder, recently seen by Urology as outpatient and Solis catheter was removed. Solis catheter replaced now, creatinine trending down, seen by Urology, will discuss further treatment plan with uro. LETHA: Likely postrenal and due to infection, will DC IV fluid creat trending down, 2.4 today,, continue Solis catheter,avoid nephrotoxins.? Renally dose home medications.? Patient's baseline creatinine is around 1.5-1.9. Being followed by Urology and Nephrology Chronic medical conditions: History of neuropathy:? Dose of gabapentin reduced to 300 mg t.i.d. History of diabetes:? Stable blood sugars, continue Insulin sliding scale and diabetic diet History of CAD: No chest pain, no shortness of breath, Continue aspirin, statin and beta-lanette History of paroxysmal AFib: Continue home Eliquis, chads vascular score of 5,continue metoprolol. History of depression:? Continue home Seroquel, and venlafaxine DVT prophylaxis:?Eliquis Code status: Full code Patient will need continued inpatient hospitalization for acute renal injury requiring further workup as well as acute UTI on IV antibiotic Quality Stroke Does the patient have a stroke diagnosis?: No VTE Prior VTE?: No VTE Risk Level:: Medical - moderate - high VTE Device Contraindication: Treatment Not Indicated VTE Drug Contraindication: N/A - Med Ordered
[2021-10-13 10:42] VITALS: BP 153/70; PULSE 60; RESP 18; TEMP 36.9; O2SAT 98
[2021-10-13 11:13] LABS: Glucose, Whole Blood 160 mg/dL (60-115)
--- NOTE | 2021-10-13 13:50 | MHC.CM.PN ---
PER ROUNDS DISCUSSION, PATIENT IS NOT YET MEDICALLY READY FOR DISCHARGE TODAY R/T ACUTE RENAL INJURY REQUIRING FURTHER TESTING; ALSO ACUTE UTI REQUIRING IV ANTIBIOTICS. 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 CM WILL CONTINUE TO FOLLOW FOR DISCHARG NEEDS.
--- NOTE | 2021-10-13 14:54 | PM.PNNEP ---
Subjective Subjective Date of Service: 10/13/21 Interval history: Seen AM. No new complaints Physical Exam Vital Signs: Vital Signs: Last Vital Signs Temp 98.5 F 10/13/21 10:42 Pulse 60 10/13/21 10:42 Resp 18 10/13/21 10:42 BP 153/70 H 10/13/21 10:42 Pulse Ox 98 10/13/21 10:42 O2 Del Method 10/13/21 10:42 BMI result Body Mass Index 38.7 Const: General: comfortable Orientation/consciousness: patient oriented x3 Eyes: EOM: EOMs intact bilaterally Neck: Neck: Yes supple Resp: Auscultation: diminished lung sounds Cardio: Rate: regular rate GI: Palpation (GI): Soft to palpation Neuro: General: patient oriented x3 Objective Data Labs CBC & Chem 7: 10/13/21 05:34 10/13/21 08:09 Labs: Laboratory Results - last 24 hr 10/12/21 10/12/21 10/13/21 15:15 19:22 05:34 WBC 7.5 RBC 3.75 L Hgb 10.4 L Hct 34.9 L MCV 93.1 MCH 27.7 MCHC 29.8 L RDW 14.2 Plt Count 269 D MPV 11.7 Absolute Nucleated RBC 0.000 Nucleated RBC % (auto) 0.0 Sodium Potassium Chloride Carbon Dioxide Anion Gap BUN Creatinine Estim Creat Clear Calc Estimated GFR POC Glucose 157 H 145 H Random Glucose Calcium 10/13/21 10/13/21 10/13/21 07:11 08:09 10:52 WBC RBC Hgb Hct MCV MCH MCHC RDW Plt Count MPV Absolute Nucleated RBC Nucleated RBC % (auto) Sodium 143 Potassium 5.1 Chloride 114 H Carbon Dioxide 20 L Anion Gap 14 BUN 50 H Creatinine 2.14 H Estim Creat Clear Calc 25.8 Estimated GFR 23 POC Glucose 130 H 160 H Random Glucose 148 H Calcium 8.2 L Microbiology Microbiology Results: Microbiology 10/11/21 18:09 Urine clean catch - Urine medina top Urine Culture - Final Pluralibacter gergoviae Procedures Date of Service Date of Service: 10/13/21 Assessment & Plan Assessment and plan (1) LETHA (acute kidney injury): Status: Acute Assessment and Plan: LETHA multifactorial- Has B/L hydro + increased cytokines from sepsis Urine drained. Renal function improving Getting antibiotics; Has CKD 3 b at baseline Continue current supportive care for now; Labs AM Time Spent With Patient Time: Total time spent is greater than 50% in coordination of care (as documented) at patient's floor/unit and/or counseling patient: Progress Note: Quality Stroke Does the patient have a stroke diagnosis?: No
[2021-10-13 15:37] VITALS: BP 169/76; PULSE 60; RESP 18; TEMP 36.1; O2SAT 97
[2021-10-13 16:13] LABS: Glucose, Whole Blood 130 mg/dL (60-115)
[2021-10-13 20:00] VITALS: BP 142/67; PULSE 68; RESP 18; TEMP 36.4; O2SAT 98
[2021-10-13 20:43] LABS: Glucose, Whole Blood 131 mg/dL (60-115)
[2021-10-13] MEDS: cefTRIAXone sodium 1 GM in 0.9 % Sodium Chloride 50 ML IV (22:13)
[2021-10-13 23:43] VITALS: BP 134/87; PULSE 95; RESP 16; TEMP 37.2; O2SAT 95
[2021-10-14 03:15] VITALS: BP 145/92; PULSE 60; RESP 14; TEMP 37.1; O2SAT 96
[2021-10-14] MEDS: Acetaminophen 325 MG TABLET 650 MG PO (03:42)
[2021-10-14 07:19] VITALS: BP 156/80; PULSE 93; RESP 17; TEMP 36.6; O2SAT 92
[2021-10-14 07:21] LABS: Anion Gap 15 (12-20); Blood Urea Nitrogen 45 mg/dL (9-16); Calcium 8.5 mg/dL (8.4-10.2); Carbon Dioxide 20 mmol/L (22-29); Chloride 113 mmol/L (96-108); Creatinine Clr Calc Pharmacy 28.2; Estimated Glomerular Filt Rate 25; Glucose Random 156 mg/dL (60-115); Potassium 5.1 mmol/L (3.3-5.1); Sodium 143 mmol/L (135-145)
[2021-10-14 07:21] LABS: Glucose, Whole Blood 196 mg/dL (60-115)
[2021-10-14] MEDS: 0.9 % Sodium Chloride Flush 3 ML SYRINGE IVFLUSH ×2 (07:39→16:13)
[2021-10-14] MEDS: Insulin Lispro 100 UNIT/ML 3 ML VIAL SUBCUT ×3 (07:39→16:13)
[2021-10-14] MEDS: Aspirin Enteric Coated 81 MG TABLET.DR PO (07:40)
[2021-10-14] MEDS: Metoprolol Tartrate 25 MG TABLET PO (07:40)
[2021-10-14] MEDS: Apixaban 5 MG TABLET PO (07:40)
[2021-10-14] MEDS: Venlafaxine HCl ER 37.5 MG CAP.ER.24H PO (07:40)
[2021-10-14] MEDS: Gabapentin 300 MG CAPSULE PO ×2 (07:40→16:12)
--- NOTE | 2021-10-14 08:45 | P.CNUR_ITS ---
History of Present Illness Consult details Consult date: 10/14/21 Narrative: Consulting plan hydronephrosis Shweta is Armenian-speaking female well known to Urology Prior Botox for overactive bladder Appears to have had urinary retention with physiologic bilateral hydronephrosis Recommend Solis catheter Creatinine at presentation 4.7 Has fallen with catheter May use catheter plug in order to improve management Catheter should be removed by Urology Review of Systems Constitutional: Constitutional: Reports as per HPI and Reports no additional constitutional complaints Cardiovascular: Cardiovascular: Reports as per HPI and Reports no additional cardiovascular complaints Respiratory: Respiratory: Reports as per HPI and Reports no additional respiratory complaints Gastrointestinal: Gastrointestinal: Reports as per HPI and Reports no additional gastrointestinal complaints Genitourinary: Genitourinary: Reports as per HPI Musculoskeletal: Musculoskeletal: Reports no additional musculoskeletal complaints and Reports as per HPI Neurologic: Reports system reviewed and no additional complaints, except as documented and Reports as per HPI PMF Past Medical History Medical History Anxiety and depression Arthritis Asthma Atrial flutter Chronic kidney disease, stage 3 Chronic pain Diabetes mellitus High cholesterol HTN (hypertension) Hyperglycemia Lateral malleolar fracture Limited mobility Multiple falls Myocardial infarction On anticoagulant therapy On beta lanette at home Urgency incontinence Family History Family History Father No problems noted. Mother Diabetes High blood pressure Stomach cancer Surgical History Surgical History H/O neck surgery History of cataract extraction History of cystoscopy History of heart artery stent Hx of cholecystectomy Hx of colonoscopy Social History Social History Household Members: None Housing: Apartment Are you a primary director critical care to a significant other at home: No Do you presently have visiting nurse or other home services: Yes Alcohol intake: current Alcohol intake frequency: does not drink Patient Tobacco Use Status: Former Tobacco user Quit Date: 2004 Tobacco use type: Cigarette Years Smoked: 30-40 years Second Hand Smoke Exposure: No Use of substances other than those prescribed or required for medical reasons: No Currently Displaying Signs/Symptoms of Drug Intoxication Withdrawal: No Are you made to feel afraid or neglected: No Advance Directives: No Advance Directives Information Provided: No Advance Directives on File: No Do you have thoughts of harming others: None Do you have a plan to hurt others: No Plan Recently lost weight without trying: No Nutrition Risks: No Nutritional Risk Patient : No : No Poor oral hygiene: No service: No Current occupational status: disabled Meds Allergies Allergy/AdvReac Type Severity Reaction Status Date / Time atorvastatin [ATORVASTATIN] Allergy Intermediate SWELLING Verified 09/29/21 11:00 morphine [MORPHINE] Allergy Intermediate RASH Verified 09/29/21 11:00 zolpidem [From AMBIEN] AdvReac Intermediate SLEEP WALKS Verified 09/29/21 11:00 Active Medications: Current Medications Acetaminophen (Acetaminophen 325 Mg Tablet) 650 mg PO Q6H PRN PRN Reason: Pain, Mild (Pain Scale 1-3) Last Admin: 10/14/21 03:42 Dose: 650 mg Apixaban (Apixaban 5 Mg Tablet) 5 mg PO BID [facility] Last Admin: 10/14/21 07:40 Dose: 5 mg Aspirin (Aspirin Enteric Coated 81 Mg Tablet.) 81 mg PO DAILY [facility] Last Admin: 10/14/21 07:40 Dose: 81 mg Dextrose (Dextrose 50 % 25 Gm/50 Ml Syringe) 25 gm IVPUSH Q15M PRN; Protocol PRN Reason: per Hypoglycemia Standing Ord. Gabapentin (Gabapentin 300 Mg Capsule) 300 mg PO TID [facility] Last Admin: 10/14/21 07:40 Dose: 300 mg Glucose (Glucose Gel 15 Gm Gel..Gram.) 15 gm PO Q15M PRN; Protocol PRN Reason: per Hypoglycemia Standing Ord. Ceftriaxone Sodium 1 gm/ (Sodium Chloride) 50 mls @ 100 mls/hr IV Q24H [facility] Last Infusion: 10/13/21 22:49 Dose: Infused Insulin Human Lispro (Insulin Lispro 100 Unit/Ml 3 Ml Vial) 0 unit SUBCUT QIDACHS [facility]; Protocol Last Admin: 10/14/21 07:39 Dose: 2 unit Melatonin (Melatonin 3 Mg Tablet) 6 mg PO BEDTIME PRN PRN Reason: Insomnia Metoprolol Tartrate (Metoprolol Tartrate 25 Mg Tablet) 25 mg PO BID [facility]; Protocol Last Admin: 10/14/21 07:40 Dose: 25 mg Quetiapine Fumarate (Quetiapine Fumarate 50 Mg Tablet) 150 mg PO BEDTIME PRN PRN Reason: Insomnia Senna (Sennosides 8.6 Mg Tablet) 17.2 mg PO BEDTIME PRN PRN Reason: Constipation Sodium Chloride (0.9 % Sodium Chloride Flush 3 Ml Syringe) 3 ml IVFLUSH QSHIFT [facility] Last Admin: 10/14/21 07:39 Dose: 3 ml Venlafaxine HCl (Venlafaxine Hcl Er 37.5 Mg Cap.Er.24h) 37.5 mg PO DAILY [facility] Last Admin: 10/14/21 07:40 Dose: 37.5 mg Home Medications Medication Instructions Recorded Confirmed Last Taken Type aspirin 81 mg capsule 81 mg PO DAILY 01/21/21 10/11/21 10/11/21 History lancing device with lancets kit #1 ea 03/24/21 09/29/21 Unknown [facility] metoprolol tartrate 25 mg tablet 25 mg PO BID 07/15/21 10/11/21 10/11/21 History quetiapine 300 mg tablet 150 mg PO BEDTIME PRN Insomnia 07/15/21 10/11/21 10/11/21 History venlafaxine 37.5 mg 37.5 mg PO DAILY 09/29/21 10/11/21 10/11/21 History capsule,extended release 24 hr gabapentin 400 mg capsule 1 cap PO TID 10/11/21 10/11/21 10/11/21 History gabapentin 600 mg tablet 1 tab PO BEDTIME 10/11/21 10/11/21 10/10/21 History insulin glargine 100 unit/mL (3 15 unit subcut BEDTIME 10/11/21 10/11/21 2 History mL) subcutaneous pen (Lantus Solostar U-100 Insulin) lisinopril 20 1 tab PO DAILY 10/11/21 10/11/21 10/11/21 History mg-hydrochlorothiazide 25 mg tablet Physical Exam Vital Signs: Vital Signs: Last Vital Signs Temp 97.8 F 10/14/21 07:19 Pulse 93 10/14/21 07:19 Resp 17 10/14/21 07:19 BP 156/80 H 10/14/21 07:19 Pulse Ox 92 10/14/21 07:19 O2 Del Method 10/14/21 07:19 BMI result Body Mass Index 38.7 Const: General: cooperative, healthy appearing, comfortable and no acute distress Orientation/consciousness: patient oriented x3 HEENT: Face and sinus: Yes normal facial exam Mouth: moist mucous membranes Neck: Neck: Yes normal visual inspection, Yes full ROM and Yes trachea midline Chest: Chest palpation & inspection: normal inspection of the chest Resp: Effort & Inspection: normal respiratory effort, able to speak in complete sentences and no respiratory distress GI: Inspection: Yes normal to inspection Back/Spine/Pelvis: Cervical Spine: normal cervical lordosis Thoracic/Lumbar Spine: thoracic and lumbar spine normal to inspection Skin: General skin exam: no rashes or lesions noted Neuro: General: patient oriented x3, tone normal and moves all extremities Extrem: General: Yes normal to inspection and Yes capillary refill normal Results Labs Result diagrams: 10/13/21 05:34 10/14/21 05:58 Labs: Abnormal lab results 10/13/21 10/13/21 10/13/21 Range/Units 08:09 10:52 15:45 Chloride 114 H (96-108) mmol/L Carbon Dioxide 20 L (22-29) mmol/L BUN 50 H (9-16) mg/dL Creatinine 2.14 H (0.5-1.4) mg/dL POC Glucose 160 H 130 H (60-115) mg/dL Random Glucose 148 H (60-115) mg/dL Calcium 8.2 L (8.4-10.2) mg/dL 10/13/21 10/14/21 10/14/21 Range/Units 20:27 05:58 07:10 Chloride 113 H (96-108) mmol/L Carbon Dioxide 20 L (22-29) mmol/L BUN 45 H (9-16) mg/dL Creatinine 1.96 H (0.5-1.4) mg/dL POC Glucose 131 H 196 H (60-115) mg/dL Random Glucose 156 H (60-115) mg/dL Calcium (8.4-10.2) mg/dL BMP 10/13/21 10/14/21 08:09 05:58 Sodium 143 143 Potassium 5.1 5.1 Chloride 114 H 113 H Carbon Dioxide 20 L 20 L BUN 50 H 45 H Creatinine 2.14 H 1.96 H Calcium 8.2 L 8.5 Urine 10/11/21 Range/Units 17:05 Urine Color Yellow Urine Appearance Turbid Urine pH 8.0 (5.0-8.0) Ur Specific [place] 1.010 (1.005-1.025) Urine Protein 100 (2+) H (Neg-Trace) mg/dL Urine Glucose (UA) Negative (Negative) mg/dL All other labs normal. Assessment and Plan (1) Hydronephrosis: Status: Acute (2) Urinary retention with incomplete bladder emptying: Status: Acute Plan Solis catheter in place with catheter cap Procedures Date of Service Date of Service: 10/12/21
[2021-10-14 11:14] VITALS: BP 134/78; PULSE 80; RESP 18; TEMP 36.2; O2SAT 97
--- NOTE | 2021-10-14 11:18 | PM.PNNEP ---
Subjective Subjective Date of Service: 10/14/21 Interval history: Renal function improving. Urology seen. No new complaints Physical Exam Vital Signs: Vital Signs: Last Vital Signs Temp 97.2 F 10/14/21 11:14 Pulse 80 10/14/21 11:14 Resp 18 10/14/21 11:14 BP 134/78 10/14/21 11:14 Pulse Ox 97 10/14/21 11:14 O2 Del Method 10/14/21 11:14 BMI result Body Mass Index 38.7 Const: General: comfortable Orientation/consciousness: patient oriented x3 Eyes: EOM: EOMs intact bilaterally Neck: Neck: Yes supple Resp: Auscultation: diminished lung sounds Cardio: Rate: regular rate GI: Palpation (GI): Soft to palpation Neuro: General: patient oriented x3 Objective Data Labs CBC & Chem 7: 10/13/21 05:34 10/14/21 05:58 Labs: Laboratory Results - last 24 hr 10/13/21 10/13/21 10/14/21 15:45 20:27 05:58 Sodium 143 Potassium 5.1 Chloride 113 H Carbon Dioxide 20 L Anion Gap 15 BUN 45 H Creatinine 1.96 H Estim Creat Clear Calc 28.2 Estimated GFR 25 POC Glucose 130 H 131 H Random Glucose 156 H Calcium 8.5 10/14/21 07:10 Sodium Potassium Chloride Carbon Dioxide Anion Gap BUN Creatinine Estim Creat Clear Calc Estimated GFR POC Glucose 196 H Random Glucose Calcium Microbiology Microbiology Results: Microbiology 10/11/21 18:09 Urine clean catch - Urine medina top Urine Culture - Final Pluralibacter gergoviae Procedures Date of Service Date of Service: 10/14/21 Assessment & Plan Assessment and plan (1) LETHA (acute kidney injury): Status: Acute Assessment and Plan: LETHA multifactorial- Has B/L hydro + increased cytokines from sepsis Urine drained. Renal function improving Getting antibiotics; Has CKD 3 b at baseline Continue current supportive care for now Time Spent With Patient Time: Total time spent is greater than 50% in coordination of care (as documented) at patient's floor/unit and/or counseling patient: Progress Note: Quality Stroke Does the patient have a stroke diagnosis?: No
[2021-10-14 11:30] LABS: Glucose, Whole Blood 159 mg/dL (60-115)
[2021-10-14 15:37] VITALS: BP 133/80; PULSE 82; RESP 19; TEMP 36.1; O2SAT 98
[2021-10-14 16:01] LABS: Glucose, Whole Blood 216 mg/dL (60-115)
--- NOTE | 2021-10-14 16:09 | P.DS_ITS ---
DS: Providers Provider Date of Service: 10/14/21 Date of admission: 10/11/21 21:18 Primary care physician: Janet Phelan MD Consults: 10/11/21 21:17 Consult to Nephrology Routine Consulting Provider: Piter Novoa Reason for consultation: LETHA 10/11/21 21:23 Consult to Urology Routine Consulting Provider: Mayito Lopez Reason for consultation: Hydronephrosis/hydroureter/UTI DS: Diagnosis Discharge Diagnosis (1) LETHA (acute kidney injury): Status: Acute DS: Summary Hospital Course Hospital Course: Date of Service: 10/11/21 Chief Complaint: Right flank pain 76-year-old female with a past medical history of hypertension, hyperlipidemia, diabetes, CAD, CKD, chronic bilateral leg weakness, history of cervical spine [id number]; urge incontinence, anxiety, depression, arthritis, chronic pain syndrome; presented to the hospital today with a chief complaint of abdominal pain.? Patient reported that she has been having right flank pain for the past 4-5 days.? Mentions that she has pain on urination.? Denies any blood in the urine.? Denies any fever chills cough or sputum production.? Mentioned that she had seen her PCP who did routine labs and noted to have elevated creatinine subsequent lasted to go to the ER for further evaluation.? Mentions that she has limited mobility, wheelchair bound-attributes to her cervical spine surgery.? Denies any chest pain or palpitations.? Denies any nausea vomiting or diarrhea.? Review of all other systems is negative except mentioned above ER course: Per ER team patient noted to have abnormal urinalysis consistent UTI; creatinine elevated to 4.7 compared to her baseline of 1.5-1.9.? CT abdomen showed hydronephrosis/hydroureter/distended bladder/cystitis.? Ordered Solis catheter.? Admitted to the hospital for further management Hospital course 76-year-old female with a past medical history of hypertension, hyperlipidemia, diabetes, CAD, CKD, chronic bilateral leg weakness, history of cervical spine [id number]; urge incontinence, anxiety, depression, arthritis, chronic pain syndrome; presented to the hospital today with a chief complaint of abdominal pain and dysuria and diagnosed to have acute kidney injury with bilateral hydronephrosis/hydroureter and distended bladder Solis catheter was replaced, gradually creatinine trended down patient was evaluated by Urology they recommend to discharge patient home with Solis catheter with outpatient urology follow up, patient was also diagnosed to have UTI urine culture grew pluralibacter gregoviae patient treated with IV ceftriaxone, now being disch arged home on by mouth ceftriaxone?. Chronic medical conditions: History of neuropathy:? Continue gabapentin History of diabetes:? Stable blood sugars, continue Insulin sliding scale and diabetic diet History of CAD:Continue aspirin, statin and beta-lanette History of paroxysmal AFib: Continue home Eliquis, chads vascular score of 5,continue metoprolol. History of depression:? Continue Seroquel, and venlafaxine Time Spent with Patient Time attestation: Total time spent providing and/or coordinating discharge services: Discharge coordination time: Greater than 30 minutes Quality: Safe Use of Opioids Does Pt have an Active Cancer Diagnosis on the Problem List?: No Quality: Stroke Does the patient have a stroke diagnosis?: No Physical Exam Vital Signs: Vital Signs: Last Vital Signs Temp 97.0 F 10/14/21 15:37 Pulse 82 10/14/21 15:37 Resp 19 10/14/21 15:37 BP 133/80 10/14/21 15:37 Pulse Ox 98 10/14/21 15:37 O2 Del Method 10/14/21 15:37 BMI result Body Mass Index 38.7 Const: Other: General awake alert x3,no acute distress.? Neck? no JVD. CVS? regular rate rhythm, Respiratory lungs clear to auscultation, no respiratory distress, no wheeze, no rhonchi. Gastrointestinal abdomen soft, obese, nontender, bowel sounds audible Extremities no? edema. Back no CVA tenderness Neuro nonfocal Skin no rash Psych appropriate affect DS: Data Data Completed and Pending Completed studies during hospitalization [Text1]: Procedures Insertion of Infusion Device into Right Basilic Vein, Percutaneous Approach (11/03) Labs on day of discharge: Laboratory Results - last 24 hr 10/13/21 10/13/21 10/14/21 15:45 20:27 05:58 Sodium 143 Potassium 5.1 Chloride 113 H Carbon Dioxide 20 L Anion Gap 15 BUN 45 H Creatinine 1.96 H Estim Creat Clear Calc 28.2 Estimated GFR 25 POC Glucose 130 H 131 H Random Glucose 156 H Calcium 8.5 10/14/21 10/14/2110/14/22 07:10 11:16 15:40 Sodium Potassium Chloride Carbon Dioxide Anion Gap BUN Creatinine Estim Creat Clear Calc Estimated GFR POC Glucose 196 H 159 H 216 H Random Glucose Calcium Discharge Plan Discharge Patient Disposition: Home Health Service Discharge Diagnosis: Acute on chronic kidney disease stage 3 UTI Bilateral hydronephrosis/hydroureter Diabetes mellitus on insulin Referrals: Brittney KIRKLAND [Outside] - 1 Week Janet Phelan MD [Primary Care Provider] - 1 Week Discharge Medications: New cefuroxime axetil 250 mg Tablet 250 mg PO Q12H Qty: 14 0RF amlodipine [Norvasc] 5 mg tablet 5 mg PO DAILY Qty: 30 0RF Continued quetiapine 300 mg tablet 150 mg PO BEDTIME PRN (Reason: Insomnia) Rx Instructions: MRX1 metoprolol tartrate 25 mg tablet 25 mg PO BID Protocol: Hold for SBP/HR < HOLD for SBP < : 90 HOLD for HR < : 60 insulin lispro [Humalog KwikPen Insulin] 100 unit/mL insulin pen 6 unit subcut TIDAC Qty: 0 0RF venlafaxine 37.5 mg capsule,extended release 24hr 37.5 mg PO DAILY gabapentin 600 mg tablet 1 tab PO BEDTIME Rx Instructions: TOTAL NIGHT DOSE 1000 gabapentin 400 mg capsule 1 cap PO TID Rx Instructions: BEDTIME TOTAL DOSE 1000MG insulin glargine [Lantus Solostar U-100 Insulin] 100 unit/mL (3 mL) insulin pen 15 unit subcut BEDTIME aspirin 81 mg Capsule 81 mg PO DAILY Eliquis 5 mg Tablet 5 mg PO BID Qty: 60 0RF (DME) lancets [FreeStyle Lancets] 28 gauge misc See Rx Instructions .ROUTE .MEDSUPPLY Qty: 100 0RF Rx Instructions: As directed (DME) FreeStyle Lite Strips Strip See Rx Instructions .Route Qty: 100 0RF Rx Instructions: As directed (DME) pen needle, diabetic [Pen Needle] 32 gauge x 5/32 needle See Rx Instructions .Route Qty: 50 0RF Rx Instructions: As directed (DME) lancing device with lancets [SoStupid.comTouch Delica Lanc Device] Kit See Rx Instructions .ROUTE .MEDSUPPLY Qty: 1 Rx Instructions: As directed estradiol 0.01 % (0.1 mg/gram) cream See Rx Instructions .Route 3XW 30 Days Qty: 42.5 2RF Rx Instructions: pea-sized to urethra 3 times a week Discontinued lisinopril-hydrochlorothiazide 20-25 mg tablet 1 tab PO DAILY Discharge Orders: Discharge Order (Routine); Ordered 10/14/21 Ordered By: Kimberly Luu Diet: Diabetic diet Activity on Discharge: As tolerated Stand Alone Forms: Patient Portal Discharge page Other Ambulatory Orders: Basic Metabolic Panel (Routine) Timeframe: [id number] Facility: [facility] - Location: Laboratory Ordered By: Kimberly Luu Care Plan Goals: Continue Solis catheter to be removed by Urology, follow diabetic diet, May flush Solis cath with 60 cc sterile water as needed for increased sediment or blockage may change Solis cath as needed with size of Solis in case it get dislodge and routine every 4 weeks Health Concerns: stop lisinopril/hydrochlorothiazide take Norvasc 5 mg daily for hypertension Plan of Treatment: Outpatient follow-up with Dr. Mayito lopez on 11/11 at 09:00 voiding trial Follow-up with Nephrology in 1-2 weeks, call to make appointment Assessment: As per discharge summary Discharge Date/Time: 10/14/21 17:16
--- NOTE | 2021-10-14 16:09 | MHC.CM.PN ---
PATIENT HAS BEEN MEDICALLY CLEARED FOR DISCHARGE TODAY; DISCHARGE DISPOSITION IS HOME WITH SERVICES/ [facility] WILL PROVIDE CARE. PATIENT WILL SECURE TRANSPORTATION HOME.
--- NOTE | 2021-10-14 16:11 | W.MHC.F2F ---
Service Date Service Date: 10/14/21 Encounter Date of encounter: 10/14/21 Reasons for Services Signs and symptoms assessed: Solis catheter/urinary retention UTI/blood pressure monitor Reason for senior care: diabetic teaching and GI/ assessment Homebound: Leaving the home is medically contraindicated at this time without the asist of a device and/or another person due th the listed conditions above and below. Reason homebound: bedbound/chairbound Certification: Based on the above findings, I certify that this patient is confined to the home and needs intermittent senior care care, physical therapy and/or speech therapy, or continues to need occupational therapy. The patient is under my care, and I have initiated the establishment of the plan of care. The patient will be followed by a physician who will periodically review the plan of care.
== END 2021-10-14 17:16 | disposition home health service (06) | DRG 690 ==
LOC: HO.ED 17:05 → HO.EDOVER 21:32 → HO.S3 23:35 → HO.IMC 10-14 16:08 → HO.S3 10-14 16:18
PROVIDERS: Admitting Provider Hospitalist; Emergency Provider Internal Medicine; PCP Internal Medicine; Visit Provider Hospitalist
DX: N13.6 Pyonephrosis (principal); N17.9 Acute kidney failure, unspecified; F41.9 Anxiety disorder, unspecified; F32.A Depression, unspecified; I12.9 Hypertensive chronic kidney disease with stage 1 through stage 4 chronic kidney disease, or unspecified chronic kidney disease; E11.22 Type 2 diabetes mellitus with diabetic chronic kidney disease; I48.0 Paroxysmal atrial fibrillation; N18.32 Chronic kidney disease, stage 3b; E11.40 Type 2 diabetes mellitus with diabetic neuropathy, unspecified; N31.9 Neuromuscular dysfunction of bladder, unspecified; E78.5 Hyperlipidemia, unspecified; M19.90 Unspecified osteoarthritis, unspecified site; R33.9 Retention of urine, unspecified; G89.4 Chronic pain syndrome; I25.10 Atherosclerotic heart disease of native coronary artery without angina pectoris; Z20.822 Contact with and (suspected) exposure to COVID-19; Z99.3 Dependence on wheelchair; I25.2 Old myocardial infarction; Z87.891 Personal history of nicotine dependence; Z88.5 Allergy status to narcotic agent; Z88.8 Allergy status to other drugs, medicaments and biological substances; Z79.4 Long term (current) use of insulin; Z79.01 Long term (current) use of anticoagulants; Z79.82 Long term (current) use of aspirin; Z79.899 Other long term (current) drug therapy
CPT/HCPCS: 36415; 74176; 80048; 80053; 81001; 82248; 82947; 85025; 85027; 87086; 87088; 87186; 87635; 99285; C1758; J0696; J1170

== ENCOUNTER → 2021-10-19 09:24 | Outpatient (REF) | payer OTHER, SELFPAY ==
--- NOTE | ~2021-10-19 | NM_ITS ---
Lexiscan Myocardial perfusion study Indication: Chest pain, assess for coronary disease and ischemia Technique: The patient was brought in for a Lexiscan perfusion study on 10/19/2021 and was injected 0.4 mg of Lexiscan intravenously. Within a minute of this injection 35 mCi of sestamibi was given intravenously. Images were obtained using the SPECT gamma camera interlaced with the gating device. Images were obtained in supine position. Resting perfusion study was performed on 10/21/2021. Patient was administered 35 mCi of sestamibi intravenously at rest. Images were then obtained in supine position. Total DLP 141mGy-cm. Images were processed with the software and compared side to side in short axis, horizontal long axis and vertical long axis views. Findings: Raw acquisition reviewed. The stress perfusion study showed diminished tracer uptake along the lateral wall; basal anterior wall as well as basal anteroseptal wall. There is improvement with CT attenuation correction and hence could all be from soft tissue attenuation artifact. The gated study shows normal LV systolic function with calculated LVEF of 62%. LV cavity is normal in size. The gated study shows normal wall thickening and contraction of segments. Resting study shows no significant perfusion abnormality. Gating at rest reveals normal wall motion with ejection fraction at 66%. The findings are consistent with reversible perfusion defect in the lateral wall; basal anterior, basal anteroseptal wall. Improvement with CT attenuation correction suggestive of diaphragmatic attenuation artifact NM/NM cardiolite stress test Impression: 1. Myocardial perfusion imaging study shows no clear evidence of any ischemia or infarction. Likely normal myocardial perfusion. 2. Gated LVEF is 62% during stress and 66% during rest. 3. Transient ischemic dilatation not present. EKG component of the test reported separately.
--- NOTE | 2021-10-19 09:26 | HM_ITS ---
conclusion: 1. Patient was monitored for total period of 3 days and 11 hours 2. Baseline rhythm is normal sinus rhythm with average heart of 61 beats per minute 3. Intermittent episodes of atrial fibrillation with longest episode lasting 13 hours and 50 minutes, with a total burden of 21%. However there is noted artifact during some portion of the time min she is recorded to be in atrial fibrillation. 4. Frequent short episodes of supra tachycardia with longest episode lasting 5 beats 5. Total of 8959 PACs accounting for 2.77% of total beats accounting for frequent PACs 6. No patient reported events MTDD
--- NOTE | 2021-10-19 09:26 | CA_ITS ---
Acquisition Time: 2021-10-19 09:53:31 Total Exercise Time: 00:02:00 Test Indications: Chest Pain Medications: Protocol: LEXISCAN Max HR: 077 BPM 52% of Pred: 146 BPM Max BP: 112/060 mmHG Max Work Load: 1.0 METS Pharmacological stress test with Lexiscan injection, while sitting and kicking her legs, withreport of fatigue, without anginal symptoms, with isolated PACs, in trigeminy and bigeminy pattern, with normotensive response to injection, with nondiagnostic EKG for ischemia. In recovery she reported significant fatigue that was treated with Aminophylline 75mg IVP to revese Lexiscan with resolution of symptom. Nuclear images pending. Test reviewed with Dr Chavarria Referred By: Mitchell Monterroso Overread By: RODOLFO SHEIKH
== END ==
LOC: HO.CARD 09:24
PROVIDERS: Visit Provider Internal Medicine
DX: I25.2 Old myocardial infarction (principal); I48.0 Paroxysmal atrial fibrillation; R00.2 Palpitations; E11.8 Type 2 diabetes mellitus with unspecified complications
CPT/HCPCS: 78452; 93017; 93242; A9500; J0280; J2785

== ENCOUNTER 2021-10-20 15:22 | Outpatient (REF) | payer OTHER, SELFPAY ==
[2021-10-20 15:53] LABS: Anion Gap 16 (12-20); Blood Urea Nitrogen 46 mg/dL (9-16); Calcium 8.4 mg/dL (8.4-10.2); Carbon Dioxide 22 mmol/L (22-29); Chloride 109 mmol/L (96-108); Estimated Glomerular Filt Rate 20; Glucose Random 209 mg/dL (60-115); Potassium 4.8 mmol/L (3.3-5.1); Sodium 142 mmol/L (135-145)
== END 2021-10-20 15:23 | disposition home or self-care (01) ==
LOC: HO.HVNA 15:22
PROVIDERS: Visit Provider Internal Medicine
DX: N39.0 Urinary tract infection, site not specified (principal)
CPT/HCPCS: 36415; 80048

== ENCOUNTER 2021-11-03 09:21 | Day surgery (SDC) | payer OTHER, SELFPAY ==
[2021-10-29 14:47] VITALS: BMI 38.9
[2021-11-03 09:50] LABS: Glucose, Whole Blood 113 mg/dL (60-115)
[2021-11-03 09:56] VITALS: BP 131/89; PULSE 79; RESP 16; TEMP 36.3; O2SAT 98
--- NOTE | 2021-11-03 10:46 | P.CONAN_ITS ---
HPI - Anesthesia Eval Consult details Narrative: colonoscopy [facility] Active Problems Active Problems: All Active Problems (Updated 10/22/21 @ 00:03 by Background Landon) Urinary retention with incomplete bladder emptying (Acute) Frequency of micturition (Acute) Acute UTI (Acute) Chronic UTI (urinary tract infection) (Acute) Urgency incontinence (Acute) Past Medical History Medical History Anxiety and depression Arthritis Asthma Atrial flutter Chronic kidney disease, stage 3 Chronic pain Diabetes mellitus High cholesterol HTN (hypertension) Hyperglycemia Lateral malleolar fracture Limited mobility Multiple falls Myocardial infarction On anticoagulant therapy On beta lanette at home Urgency incontinence Family History Family History Father No problems noted. Mother Diabetes High blood pressure Stomach cancer Family history of problems with anesthesia: No Surgical History Surgical History H/O neck surgery History of cataract extraction History of cystoscopy History of heart artery stent Hx of cholecystectomy Hx of colonoscopy History of Problems with Anesthesia: No Social History Social History Household Members: None Housing: Apartment Are you a primary rn care transition to a significant other at home: No Do you presently have visiting nurse or other home services: Yes ([employer] daily) Alcohol intake: current Alcohol intake frequency: does not drink Patient Tobacco Use Status: Former Tobacco user Quit Date: 2005 Tobacco use type: Cigarette Years Smoked: 30-40 years Second Hand Smoke Exposure: No Have you been hit, kicked, punched, or otherwise hurt by someone within the past year? If so, by whom?: No Are you DNR?: No Advance Directives: No Advance Directives Information Provided: Yes Advance Directives on File: No Recently lost weight without trying: No service: No Current occupational status: disabled Meds Allergies Allergy/AdvReac Type Severity Reaction Status Date / Time atorvastatin [ATORVASTATIN] Allergy Intermediate SWELLING Verified 11/03/21 09:34 morphine [MORPHINE] Allergy Intermediate RASH Verified 11/03/21 09:34 zolpidem [From AMBIEN] AdvReac Intermediate SLEEP WALKS Verified 11/03/21 09:34 Active Medications: Current Medications Sodium Biphosphate/Sodium Phosphate (Sodium Phosphate,Box Elder-Dibasic 133 Ml Enema) 133 ml [place] ONCE PRN PRN Reason: Poor Colonoscopy Prep Results Home Medications Medication Instructions Recorded Confirmed Last Taken Type aspirin 81 mg capsule 81 mg PO DAILY 01/21/21 11/03/21 10/29/21 History lancing device with lancets kit #1 ea 03/24/21 09/29/21 Unknown History ([facility] Lancing [facility]) metoprolol tartrate 25 mg tablet 25 mg PO BID 07/15/21 10/29/21 11/03/21 08:15 History quetiapine 300 mg tablet 150 mg PO BEDTIME PRN Insomnia 07/15/21 10/29/21 10/11/21 History venlafaxine 37.5 mg 37.5 mg PO DAILY 09/29/21 10/29/21 10/11/21 History capsule,extended release 24 hr gabapentin 400 mg capsule 1 cap PO TID 10/11/21 10/11/21 10/11/21 History gabapentin 600 mg tablet 1 tab PO BEDTIME 10/11/21 10/29/21 10/10/21 History insulin glargine 100 unit/mL (3 15 unit subcut BEDTIME 10/11/21 11/03/21 11/02/21 19:00 History mL) subcutaneous pen (Lantus Solostar U-100 Insulin) duloxetine 30 mg capsule,delayed 1 cap PO DAILY 10/29/21 10/29/21 11/03/21 08:15 History release lisinopril 20 1 tab PO DAILY 10/29/21 10/29/21 Unknown History mg-hydrochlorothiazide 25 mg tablet Exam Exam Date and Time: November 03, 2021 1046 Height,Weight and Vital Signs: Height 5 ft 3 in Weight 99.79 kg Last Vital Signs Temp 97.3 F 11/03/21 09:56 Pulse 79 11/03/21 09:56 Resp 16 11/03/21 09:56 BP 131/89 11/03/21 09:56 Pulse Ox 98 11/03/21 09:56 O2 Del Method 11/03/21 09:56 Pertinent Lab Results Pertinent Lab Results: Laboratory Tests 11/03/21 09:46 POC Glucose 113 Airway Mallampati Class: II TM Dist: <=3cm Neck ROM: Full Partial: Upper Loose/Missing/Broken Teeth: Yes Heart: ok Lungs: ok Assessment and Plan Final Anesthetic Review Family History of Problems with Anesthesia: No History of Problems with Anesthesia: No NPO: Yes ASA Class: IV Final Preanesthetic Review: No Changes in Pt Med Stat, Meds/Allgs Chart Reviewed, Consent Obtained/Reviewed and Anes Risks/Benef Reviewed Patient Risk: High Procedure Risk: Low Anesthetic Plan Anesthetic Plan: MAC: and Agree w/ Assess. and Plan Disposition: Standard PACU
[2021-11-03] MEDS: Lactated Ringers 1,000 ML 100 ML IVCONT (10:54)
[2021-11-03 12:00] VITALS: BP 128/68; PULSE 62; RESP 16; TEMP 37.1; O2SAT 98
--- NOTE | 2021-11-03 12:01 | P.BOP_ITS ---
Brief Operative Note Date of Service: 11/03/21 Pre-op diagnosis: Screening Post-op diagnosis: other (Diverticulosis, Limited prep) Procedure: Colonoscopy to the cecum Surgeon: Gamal Reis Anesthesia: MAC Was an Mechanism Inspector used for this Procedure?: No Estimated blood loss (mL): 0 Pathology: none sent Condition: stable Disposition: PACU
[2021-11-03 12:15] VITALS: BP 144/79; PULSE 54; RESP 16; O2SAT 98
[2021-11-03 12:28] VITALS: BP 153/75; PULSE 54; RESP 16; TEMP 36.8; O2SAT 98
--- NOTE | 2021-11-05 09:25 | OP_ITS ---
SURGEON: Gamal Reis MD INDICATIONS: The patient presents for followup of personal history of tubular adenoma of the colon and colorectal cancer screening. Full consent has been obtained from her for that, including risks of bleeding and perforation. PREOPERATIVE DIAGNOSIS: Colorectal cancer screening and personal history of tubular adenoma of the colon. POSTOPERATIVE DIAGNOSIS: PROCEDURE PERFORMED: Colonoscopy to the cecum. ESTIMATED BLOOD LOSS: COMPLICATIONS: ANESTHESIA: Monitored anesthesia care. ASSISTANTS: SPECIMENS: POSTOPERATIVE DIAGNOSES: Colorectal cancer screening and personal history of tubular adenoma of the colon, diverticulosis, internal hemorrhoids, limited prep. DESCRIPTION OF PROCEDURE: The patient was placed in the left lateral decubitus position. The digital rectal exam revealed no abnormalities. The Olympus video pediatric colonoscope was entered into the rectum and advanced to the cecum. Advancement to the cecum was difficult due to a poor prep despite her having done the two-day preparation. There was a lot of liquid dark stool and some solid stool as well. However, once in the cecum, I did identify a cecal pouch with appendiceal orifice and a normal-appearing ileocecal valve. The cecum was actually well visualized and appeared normal. The scope was then slowly withdrawn assessing all mucosal surfaces carefully. Preparation was quite limited in various parts of the colon. I did spend considerable time trying to find her previously placed submucosal ink ac in the transverse colon from the site of her previous polypectomy, but due to the poor prep, I was not able to see them. I did not see any sign of residual polyp either, but obviously with a poor prep, things could have been missed. I did not visualize any polyps, colitis, nor angiodysplasia. There was a mild amount of sigmoid diverticulosis. In the rectum, the scope was retroflexed visualizing internal hemorrhoids, but no other pathology. The rectal mucosa was visualized and appeared normal. Scope was straightened and withdrawn from the patient. She tolerated the procedure well and was returned to the recovery area in stable condition. IMPRESSION: 1. Diverticulosis. 2. Internal hemorrhoids. 3. Limited prep. PLAN: At this point, given her age and medical issues, and the difficulty with the bowel prep in obtaining a good clean out despite having done a 2 day prep, I would be inclined to hold off on any further colonoscopies and observe things. She was advised to resume her Eliquis and aspirin today. She will be seen in followup in the office to review this with her family as well. MD MICAELA Ferguson/HERIBERTO / [id number]
== END 2021-11-03 13:51 | disposition home or self-care (01) ==
PROVIDERS: PCP Internal Medicine; Visit Provider Internal Medicine
PROC: 0DJD8ZZ Inspection of Lower Intestinal Tract, Via Natural or Artificial Opening Endoscopic (ICD-10-PCS; CPT 45378; principal; 2021-11-03 10:40)
DX: Z12.11 Encounter for screening for malignant neoplasm of colon (principal); Z86.010 Personal history of colon polyps; Z80.0 Family history of malignant neoplasm of digestive organs; K57.30 Diverticulosis of large intestine without perforation or abscess without bleeding; K64.8 Other hemorrhoids; K59.00 Constipation, unspecified; I48.91 Unspecified atrial fibrillation; E11.22 Type 2 diabetes mellitus with diabetic chronic kidney disease; I12.9 Hypertensive chronic kidney disease with stage 1 through stage 4 chronic kidney disease, or unspecified chronic kidney disease; N18.30 Chronic kidney disease, stage 3 unspecified; I25.10 Atherosclerotic heart disease of native coronary artery without angina pectoris; Z79.4 Long term (current) use of insulin; Z79.01 Long term (current) use of anticoagulants; Z79.82 Long term (current) use of aspirin; Z88.8 Allergy status to other drugs, medicaments and biological substances; Z90.49 Acquired absence of other specified parts of digestive tract; Z79.899 Other long term (current) drug therapy; Z87.891 Personal history of nicotine dependence
CPT/HCPCS: G0105; 82947

== ENCOUNTER → 2021-11-11 08:34 | Outpatient (BNVA) | payer OTHER, SELFPAY | PROVIDERS: PCP Internal Medicine; Visit Provider Urology | DX: R33.9 Retention of urine, unspecified (principal) | CPT/HCPCS: 51798 ==

== ENCOUNTER 2021-11-23 09:45 | Outpatient (REF) | payer OTHER, SELFPAY ==
[2021-11-23 10:11] LABS: MANUAL DIFF FLAG NO
[2021-11-23 10:33] LABS: Basophils Absolute Auto 0.1 X10*3/uL (0.0-0.2); Basophils Percent Auto 0.7 % (0-2); Eosinophils Absolute Auto 0.2 X10*3/uL (0.0-0.4); Eosinophils Percent Auto 2.7 % (0-4); Hematocrit 35.2 % (37.0-47.0); Hemoglobin 10.9 g/dl (12.0-16.0); Imm Gran Abs Auto 0.04 X10*3/uL (0.00-0.03); Imm Gran Pct Auto 0.5 % (0.0-0.4); Lymphocytes Absolute Auto 2.2 X10*3/uL (1.2-4.9); Mean Corpuscular Hemoglobin 28.7 pg (27.0-33.0); Mean Corpuscular Volume 92.6 fL (80.0-98.0); Mean Platelet Volume 10.7 fL (9.4-12.3); Monocytes Absolute Auto 0.6 X10*3/uL (0.1-1.2); Monocytes Percent Auto 6.8 % (2-11); Neutrophils Absolute Auto 5.6 x10*3/uL (2.0-8.3); Neutrophils Percent Auto 64.3 % (45-73); Platelet Count 336 X10*3/uL (160-400); Red Cell Distribution Width 14.9 % (11.0-16.0); White Blood Count 8.6 X10*3/uL (4.8-10.8)
[2021-11-23 11:14] LABS: Albumin Level 3.5 g/dL (3.5-5.0); Anion Gap 15 (12-20); Blood Urea Nitrogen 28 mg/dL (9-16); Calcium 8.3 mg/dL (8.4-10.2); Carbon Dioxide 21 mmol/L (22-29); Chloride 110 mmol/L (96-108); Estimated Glomerular Filt Rate 30; Magnesium 1.9 mg/dL (1.6-2.6); Phosphorus 3.3 mg/dL (2.7-4.5); Potassium 4.8 mmol/L (3.3-5.1); Sodium 141 mmol/L (135-145)
[2021-11-23 11:53] LABS: Appearance Urine Turbid; Color Urine Yellow; Glucose Urine UA Negative (Negative); Leukocyte Esterase Urine Large (3+) (Negative); Nitrite Urine Negative (Negative); Specific Gravity - Urine 1.015 (1.005-1.025); UMIC TRIGGER UA YES; Urine Blood Large (3+) (Negative); Urine Ketones Negative (Negative); Urine Protein 100 (2+) mg/dL (Neg-Trace)
[2021-11-23 12:10] LABS: Bacteria Urine 4+ (None Seen); RBC Urine >20 /HPF (0-2); WBC Clumps Urine Present; WBC Urine >50 /HPF (0-5)
[2021-11-23 12:15] LABS: Creatinine Urine 70.91 mg/dL; Protein/Creatinine Ratio, Ur 1.26 (<0.2); Total Protein Urine Random 89 mg/dL (<12)
[2021-11-24 11:32] LABS: Calcium (PTHI) 8.3 mg/dL (8.6-10.4); PTHI 129 pg/mL (16-77)
== END 2021-11-23 09:46 | disposition home or self-care (01) ==
LOC: HO.LAB 09:45
PROVIDERS: PCP Internal Medicine; Visit Provider Internal Medicine Nephrology
DX: I12.9 Hypertensive chronic kidney disease with stage 1 through stage 4 chronic kidney disease, or unspecified chronic kidney disease (principal); E11.22 Type 2 diabetes mellitus with diabetic chronic kidney disease; N18.4 Chronic kidney disease, stage 4 (severe); R80.1 Persistent proteinuria, unspecified
CPT/HCPCS: 36415; 80051; 81001; 82040; 82310; 82565; 83735; 83970; 84100; 84156; 84520; 85025; 87086

== ENCOUNTER → 2021-11-30 13:31 | Outpatient (BNVA) | payer OTHER, SELFPAY | PROVIDERS: PCP Internal Medicine; Referring Provider Internal Medicine; Visit Provider Nurse Practitioner Family | DX: I48.0 Paroxysmal atrial fibrillation (principal); I25.2 Old myocardial infarction; I10 Essential (primary) hypertension; E78.00 Pure hypercholesterolemia, unspecified | CPT/HCPCS: 99212 ==

== ENCOUNTER 2021-12-20 13:10 | Outpatient (REF) | payer OTHER, SELFPAY ==
[2021-12-20 15:01] LABS: Appearance Urine Turbid; Color Urine Yellow; Glucose Urine UA Negative (Negative); Leukocyte Esterase Urine Large (3+) (Negative); Nitrite Urine Positive (Negative); Specific Gravity - Urine 1.015 (1.005-1.025); UMIC TRIGGER UA YES; Urine Blood Moderate (2+) (Negative); Urine Ketones Negative (Negative); Urine Protein 100 (2+) mg/dL (Neg-Trace)
[2021-12-20 15:04] LABS: Bacteria Urine 4+ (None Seen); WBC Urine >50 /HPF (0-5)
== END 2021-12-20 13:11 | disposition home or self-care (01) ==
LOC: HO.LAB 13:10
PROVIDERS: PCP Internal Medicine; Visit Provider Urology
DX: N39.0 Urinary tract infection, site not specified (principal)
CPT/HCPCS: 81001; 87086; 87088; 87186

== ENCOUNTER → 2021-12-24 09:48 | Outpatient (BNVA) | payer OTHER, SELFPAY | PROVIDERS: PCP Internal Medicine; Visit Provider Urology | DX: N39.0 Urinary tract infection, site not specified (principal) | CPT/HCPCS: Q3014 ==

== ENCOUNTER 2022-01-11 08:49 | Inpatient (IN) | payer OTHER, SELFPAY ==
[2022-01-11] VITALS (8 sets, daily range): BP systolic 96–134; BP diastolic 40–81; PULSE 54–67; RESP 11–20; TEMP 35.8–35.9; O2SAT 96–99; BMI 37.8
--- NOTE | ~2022-01-11 | XR_ITS ---
EXAMINATION: BILATERAL KNEE AND CHEST WITH RIBS CLINICAL INFORMATION: Fall. Pain COMPARISON: None TECHNIQUE: 4 views each knee. Chest with bilateral RIBS 4 views. FINDINGS: Left knee: There is loss of medial and patellofemoral compartment joint space with periarticular spurring. No abnormal joint effusion seen. There are no loose bodies. There is no acute fracture or dislocation seen. The soft tissues are normal. Right knee: There is mild loss of tricompartment joint space with mild periarticular spurring. Mild suprapatellar joint effusion seen. There are no loose bodies or bony erosive changes. No acute fracture or dislocation. Chest with bilateral RIBS: The lungs are hypoexpanded but clear. The heart size and perivascular is normal. Multiple views of bilateral ribs reveal no visible acute fracture or lytic process. There is moderate spondylosis seen throughout dorsal spine. There are surgical sutures in the right upper quadrant from previous intervention. XR/XR knee RT 4V IMPRESSION: Degenerative arthritic changes bilateral knee. There is mild suprapatellar joint effusion right knee. No visible acute fracture or dislocation in either knee. Unremarkable chest exam. There is no visible rib fracture on either side.
--- NOTE | ~2022-01-11 | XR_ITS ---
EXAMINATION: BILATERAL KNEE AND CHEST WITH RIBS CLINICAL INFORMATION: Fall. Pain COMPARISON: None TECHNIQUE: 4 views each knee. Chest with bilateral RIBS 4 views. FINDINGS: Left knee: There is loss of medial and patellofemoral compartment joint space with periarticular spurring. No abnormal joint effusion seen. There are no loose bodies. There is no acute fracture or dislocation seen. The soft tissues are normal. Right knee: There is mild loss of tricompartment joint space with mild periarticular spurring. Mild suprapatellar joint effusion seen. There are no loose bodies or bony erosive changes. No acute fracture or dislocation. Chest with bilateral RIBS: The lungs are hypoexpanded but clear. The heart size and perivascular is normal. Multiple views of bilateral ribs reveal no visible acute fracture or lytic process. There is moderate spondylosis seen throughout dorsal spine. There are surgical sutures in the right upper quadrant from previous intervention. XR/XR knee LT 4V IMPRESSION: Degenerative arthritic changes bilateral knee. There is mild suprapatellar joint effusion right knee. No visible acute fracture or dislocation in either knee. Unremarkable chest exam. There is no visible rib fracture on either side.
--- NOTE | ~2022-01-11 | CT_ITS ---
EXAMINATION: CT ABDOMEN AND PELVIS WITHOUT CONTRAST CLINICAL INFORMATION: Acute on chronic kidney injury. Hydronephrosis/obstruction. COMPARISON: CT abdomen pelvis 10/11/2021 TECHNIQUE: Multidetector volumetric imaging was performed from the superior aspect of the liver through the pubic symphysis. Sagittal and coronal reformatted images were obtained on the technologist's workstation. This CT examination was performed using dose optimization techniques as appropriate, variously including the following: *Automated exposure control *Adjustment of mA and/or kV according to patient size (this includes techniques or standardized protocols for targeted exams where dose is matched to indication/reason for exam; i.e. extremities or head) *Use of iterative reconstruction technique DLP: 1004 mGy-cm FINDINGS: LUNG BASES: Minimal bibasilar atelectasis. Extensive three-vessel coronary artery vascular calcifications. LIVER, GALLBLADDER, AND BILIARY TREE: The liver is normal in size, shape, and attenuation. No focal hepatic lesion or biliary ductal dilatation is present. Status post cholecystectomy. PANCREAS: Unremarkable. SPLEEN: Unremarkable. ADRENAL GLANDS: Unremarkable. KIDNEYS AND URETERS: Moderate left and mild to moderate right hydronephrosis and bilateral ureterectasis to the level of the UVJ. The degree of hydronephrosis. Sella improved since prior 20 11/02/2021. No radiodense urinary tract calculi. 4.8 cm benign-appearing right upper pole exophytic renal cyst. Unchanged small subcentimeter exophytic left mid pole renal lesion, likely small cyst but too small to reliably characterize. No perinephric collections. BLADDER: Diffusely thick-walled. Limited distention. GASTROINTESTINAL TRACT: No dilated bowel loops. No bowel wall thickening. Moderate amount of formed stool within the colon. Normal and axilla. A couple small lipoma is noted and portion of duodenum measuring approximately 1 cm in size, unchanged. No ascites or free air. ABDOMINAL WALL: Small fat-containing umbilical hernia. LYMPH NODES: No lymphadenopathy. VASCULAR: Normal caliber abdominal aorta. Moderate vascular calcifications. PELVIC VISCERA: Unremarkable. Gynecologic structures are grossly unremarkable limited assessment. No free pelvic fluid. OSSEOUS STRUCTURES: No acute fracture or suspicious osseous lesion. Multilevel degenerative disc disease in lumbar facet arthrosis. CT/CT abdomen pelvis wo IV con IMPRESSION: 1. Bilateral hydroureteronephrosis as above. The degree of hydronephrosis. Overall improved since 10/11/2021. 2. Diffusely thick-walled urinary bladder. Correlate clinically with signs or symptoms of cystitis or chronic bladder dysfunction. 3. No radiodense urinary tract calculi. 4. Additional ancillary findings, as described.
--- NOTE | ~2022-01-11 | XR_ITS ---
EXAMINATION: BILATERAL KNEE AND CHEST WITH RIBS CLINICAL INFORMATION: Fall. Pain COMPARISON: None TECHNIQUE: 4 views each knee. Chest with bilateral RIBS 4 views. FINDINGS: Left knee: There is loss of medial and patellofemoral compartment joint space with periarticular spurring. No abnormal joint effusion seen. There are no loose bodies. There is no acute fracture or dislocation seen. The soft tissues are normal. Right knee: There is mild loss of tricompartment joint space with mild periarticular spurring. Mild suprapatellar joint effusion seen. There are no loose bodies or bony erosive changes. No acute fracture or dislocation. Chest with bilateral RIBS: The lungs are hypoexpanded but clear. The heart size and perivascular is normal. Multiple views of bilateral ribs reveal no visible acute fracture or lytic process. There is moderate spondylosis seen throughout dorsal spine. There are surgical sutures in the right upper quadrant from previous intervention. XR/XR ribs BI min 4V w CXR1V IMPRESSION: Degenerative arthritic changes bilateral knee. There is mild suprapatellar joint effusion right knee. No visible acute fracture or dislocation in either knee. Unremarkable chest exam. There is no visible rib fracture on either side.
--- NOTE | ~2022-01-11 | CT_ITS ---
EXAMINATION: CT BRAIN AND CT CERVICAL SPINE WITHOUT CONTRAST. CLINICAL INFORMATION: Fall. COMPARISON: None TECHNIQUE: 5 mm thin axial and reformatted 2 mm thin sagittal and coronal images of brain were obtained without contrast. Subsequently 3 mm thin axial and reformatted 2 mm thin sagittal and coronal images of cervical spine were obtained. DLP [id number] examination was performed using dose optimization technique as appropriate, variously including the following: Automated exposure control Adjustment of MA and/or KV according to patient size(this includes techniques or standardized protocols for targeted exams where dose is matched to indication/reason for exam; extremities or head. Use of iterative reconstruction techniques. FINDINGS: Brain: There is no acute intra-axial, extra-axial bleed, masses, collection or midline shift. There is no acute infarction evolution. There is no edema. The lateral ventricles are symmetrical in size and configurations without enlargement. Bone windows reveal no calvarial abnormality. Bilateral paranasal sinuses and mastoid air cells are well-aerated. There is no scalp soft tissue abnormality. Bilateral paranasal sinuses and mastoid air cells are well-aerated. Cervical spine: There is mild straightening of cervical lordosis. There are large posterior bony/osteophyte/posterior ligament ossification extending from C2 through C6 vertebra causing spinal canal stenosis. These vertebral levels are fused posteriorly with bilateral lamina screws and interconnecting rods and partial laminectomies for expansion of spinal canal. No focal or discrete fracture or lytic process seen. Mild degenerative changes of C1-C2 disc level and mild ventral spondylosis mid to lower spine is noted. No acute fractures seen. The prevertebral soft tissues are normal. The lung apices are clear CT/CT cervical spine wo IV con IMPRESSION: No acute intracranial process seen. Partial laminectomy from C2 through C6 vertebra stabilized with bilateral posterior hardware. There is a large osteophyte posterior ossification calcification from C2 to C6 vertebra causing spinal canal stenosis. There is no acute fracture or subluxation seen.
--- NOTE | 2022-01-11 09:12 | ED.GENADULT ---
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 Patient complaining of bilateral knee pain. Per patient had ? fall 2 days ago, has been slurring speech x2 days which is increasingly worse with also noted confusion and leaning on right side. patient reports mild headache and right-sided rib pain. Denies fever, vision change, CP/ SOB, abdominal pain, nausea/ vomiting, pedal edema. Onset (ago): day(s) Related Data Home Medications Medication Instructions Recorded Confirmed aspirin 81 mg capsule 81 mg PO DAILY 01/21/21 11/30/21 lancing device with lancets kit #1 ea 03/24/21 11/30/21 (Healthy Humans Lancing Device kit) metoprolol tartrate 25 mg tablet 25 mg PO BID 07/15/21 11/30/21 quetiapine 300 mg tablet 150 mg PO BEDTIME PRN Insomnia 07/15/21 11/30/21 venlafaxine 37.5 mg 37.5 mg PO DAILY 09/29/21 11/30/21 capsule,extended release 24 hr insulin glargine 100 unit/mL (3 15 unit subcut BEDTIME 10/11/21 01/11/22 mL) subcutaneous pen (Lantus Solostar U-100 Insulin) lisinopril 20 1 tab PO DAILY 10/29/21 11/30/21 mg-hydrochlorothiazide 25 mg tablet albuterol sulfate 90 mcg/actuation 2 puff inhalation QID PRN 11/30/21 11/30/21 aerosol inhaler duloxetine 30 mg capsule,delayed 30 mg PO DAILY 11/30/21 11/30/21 release ferrous sulfate 325 mg (65 mg 325 mg PO DAILY 11/30/21 11/30/21 iron) tablet fluoxetine 20 mg capsule 20 mg PO DAILY 11/30/21 11/30/21 gabapentin 400 mg capsule 400 mg PO TID 11/30/21 11/30/21 ciprofloxacin 0.3 %-dexamethasone 4 drp otic (ears) BID 01/11/22 0.1 % ear drops,suspension gabapentin 600 mg tablet 1 tab PO BEDTIME 01/11/22 sulfamethoxazole 800 1 tab PO BID 01/11/22 01/11/22 mg-trimethoprim 160 mg tablet Previous Rx's Medication Instructions Recorded apixaban 5 mg tablet (Eliquis) 5 mg PO BID #60 tabs 01/26/21 blood sugar diagnostic (FreeStyle #100 ea 01/26/21 Lite Strips) lancets 28 gauge (FreeStyle #100 ea 01/26/21 Lancets) pen needle, diabetic 32 gauge x #50 ea 01/26/21 (Pen Needle) insulin lispro 100 unit/mL 6 unit (0.06 mL) subcut TIDAC #0 mL 07/18/21 subcutaneous pen (Humalog KwikPen (U-100) Insulin) amlodipine 5 mg tablet (Norvasc) 5 mg PO DAILY #30 tabs 10/14/21 estradiol 0.01% (0.1 mg/gram) See Rx Instructions .Route 3XW 30 12/24/21 vaginal cream days #42.5 grams ezetimibe 10 mg tablet 10 mg PO DAILY #90 tabs 12/24/21 Allergies Allergy/AdvReac Type Severity Reaction Status Date / Time atorvastatin [ATORVASTATIN] Allergy Intermediate SWELLING Verified 11/30/21 14:19 morphine [MORPHINE] Allergy Intermediate RASH Verified 11/30/21 14:19 zolpidem [From AMBIEN] AdvReac Intermediate SLEEP WALKS Verified 11/30/21 14:19 Review of Systems Review of Systems: Constitutional: No Fever, No Chills, No Fatigue, No Malaise ENT/Mouth: No Ear Pain, No sore throat, No Rhinorrhea, No Swallowing Difficulty Eyes: No Eye Pain, No Swelling, No Redness, No Vision Changes Cardiovascular: No Chest Pain, No SOB, No Edema, No Palpitations Respiratory: No Cough, No Sputum, No Wheezing, No Smoke Exposure, No Dyspnea Gastrointestinal: No Nausea, No Vomiting, No Diarrhea, No Constipation, No Abdominal pain Genitourinary: No Dysuria, No Urinary Frequency, No Hematuria, No Urinary Incontinence/retention, No Flank Pain Musculoskeletal: + joint pain, No Myalgias, No Joint Swelling Skin: No Skin Lesions, No rash Neuro: No Weakness, No Numbness, No Paresthesias, No Loss of Consciousness, No Dizziness, + Headache, +confusion, +slurred speech Yes all other systems are reviewed and are negative Constitutional: Constitutional: Reports as per HPI Neurologic: Reports Abnormal speech present (slow) [facility] Past Medical History Attestation statement: The following information was validated with the patient. Medical History Anxiety and depression Arthritis Asthma Atrial flutter Chronic kidney disease, stage 3 Chronic pain Diabetes mellitus High cholesterol History of myocardial infarction HTN (hypertension) Hyperglycemia Lateral malleolar fracture Limited mobility Multiple falls Myocardial infarction On anticoagulant therapy On beta lanette at home Paroxysmal atrial fibrillation Type 2 diabetes mellitus with unspecified complications Urgency incontinence Surgical History H/O neck surgery History of cataract extraction History of cystoscopy History of heart artery stent Hx of cholecystectomy Hx of colonoscopy Family History Family History Father No problems noted. Mother Diabetes High blood pressure Stomach cancer Social History Social History Household Members: None Housing: Apartment Are you a primary transition of care specialist to a significant other at home: No Do you presently have visiting nurse or other home services: Yes ([employer] daily) Alcohol intake: current Alcohol intake frequency: does not drink Patient Tobacco Use Status: Former Tobacco user Quit Date: 2005 Tobacco use type: Cigarette Years Smoked: 30-40 years Smoked in Last 30 Days: No Second Hand Smoke Exposure: No Use of substances other than those prescribed or required for medical reasons: No Advance Directives: No Advance Directives Information Provided: Yes service: No Current occupational status: disabled Physical Exam ED Vital Signs: Vital Signs - 24 hr 01/11/22 09:07 01/11/22 11:11 01/11/22 12:07 Temperature 96.4 F L Pulse Rate 67 59 54 Respiratory Rate 18 20 11 L Blood Pressure 119/56 L 118/50 L 106/46 L Pulse Oximetry 97 97 99 Oxygen Delivery Method Room Air Room Air Room Air 01/11/22 13:30 01/11/22 16:21 Temperature Pulse Rate 58 57 Respiratory Rate 13 12 Blood Pressure 113/61 118/55 L Pulse Oximetry 99 98 Oxygen Delivery Method Room Air Room Air BMI result Body Mass Index 37.8 Const Other: +slurred speech General: cooperative, no acute distress, alert and awake Orientation/consciousness: patient oriented x3 Limitations: no limitations HENMT Head: Yes normal to inspection, Yes atraumatic, No Roman's sign and No raccoon eyes Ears: hearing grossly normal bilaterally General nose exam: Normal external nose present Face and sinus: Yes normal facial exam Throat: Yes posterior oropharynx normal, Yes tonsils normal and Yes uvula midline Eyes General: appearance normal, both eyes and all related structures Pupils: Equal, round and reactive pupils present EOM: EOMs intact bilaterally Neck Other: No midline cervical spinous tenderness Neck: Yes normal visual inspection and Yes no meningeal signs Chest Other: + right posterior lateral chest wall Chest palpation & inspection: normal inspection of the chest, no crepitus and tenderness Resp Effort & Inspection: normal respiratory effort and no respiratory distress Auscultation: clear to auscultation bilaterally, no crackles, no rales, no rhonchi and no wheezes Cardio Rate: regular rate Heart sounds: S1 normal heart sound present and S2 normal heart sound present GI Inspection: Yes normal to inspection Palpation (GI): Soft to palpation, nontender, no guarding and not rigid General: Yes no CVA tenderness Back/Spine/Pelvis Other: No midline thoracic/lumbar spinous tenderness/step-off or deformity Back: no CVA tenderness Skin Rashes: no rashes Wounds: no wounds Neuro General: patient oriented x3, tone normal, moves all extremities, no meningeal signs and CN's II-XI intact bilaterally Cranial nerves: Yes Equal, round and reactive pupils present Speech: Abnormal speech present (slow) slurred Gait exam (Neuro): Normal gait present Motor exam (neuro): 5/5 motor strength present throughout, Pronator motor function not present and no tremor noted Romberg Test: Negative Extrem Other: + bilateral knees without noted deformity, both tender to palpation, ROM to lower extremities chronically inhibited. Pulses intact General: Yes normal to inspection Course Course Course Narrative: -1200--No leukocytosis. H&H stable. Potassium elevated to 7.6. No EKG changes > lokelma, IV calcium, and albuterol ordered. - LETHA on CKD with a BUN of 76 and creatinine of 5.2. CPK 1210. Still low suspicion for severe sepsis, no evidence of infection at this time, will bladder scan to rule out retention and obtain CT AP - initial troponin 7.2 > will obtain 3 hour repeat -1223-- When bladder scan attempted patient was actively urinating, urine sick and odorous, suspect infection. Will straight cath for UA and initiate Rocephin IV empirically. Still low suspicion for severe sepsis -1311-- UA appears chronically infected. Is also contaminated. XR knee LT 4V/XR knee RT 4V/XR ribs BI min 4V w CXR1V IMPRESSION: Degenerative arthritic changes bilateral knee. There is mild suprapatellar joint effusion right knee. No visible acute fracture or dislocation in either knee. ? Unremarkable chest exam. ? There is no visible rib fracture on either side. CT head/brain wo IV con/CT cervical spine wo IV con IMPRESSION: No acute intracranial process seen. ? Partial laminectomy from C2 through C6 vertebra stabilized with bilateral posterior hardware. There is a large osteophyte posterior ossification calcification from C2 to C6 vertebra causing spinal canal stenosis. There is no acute fracture or subluxation seen.? 1511--CT abdomen pelvis wo IV con IMPRESSION: 1.? Bilateral hydroureteronephrosis as above. The degree of hydronephrosis. Overall improved since 10/11/2021. 2.? Diffusely thick-walled urinary bladder. Correlate clinically with signs or symptoms of cystitis or chronic bladder dysfunction. 3.? No radiodense urinary tract calculi. 4.? Additional ancillary findings, as described. >> will place Solis catheter -1540-- repeat BMP with mild improvement of potassium to 6.5 and LETHA with a BUN of 71 and creatinine of 4.81. Nephrology paged [phone]-- spoke with Nephrology, Dr. Zavaleta recommended another round of Lokelma, insulin/ dextrose, albuterol, and repeat potassium in 2 hours. Patient admitted for further management Medications Administered Discontinued Medications Generic Name Dose Route Start Last Admin Trade Name Freq PRN Reason Stop Dose Admin Albuterol Sulfate 2.5 mg/ 5 mg 01/11/22 11:57 01/11/22 12:43 Albuterol Sulfate 2.5 mg INHALE 01/11/22 11:58 5 mg ONCE ONE Administration Sodium Chloride 1,000 mls @ 999 mls/hr 01/11/22 12:00 01/11/22 14:25 Ns IV 01/11/22 13:00 Infused .Q1H1M MARY CARMEN Infusion Calcium Gluconate 1 gm in 50 mls @ 50 mls/hr 01/11/22 11:57 01/11/22 13:28 Calcium Gluconate IV 01/11/22 12:56 Infused ONCE ONE Infusion Ceftriaxone Sodium 1 gm/ 50 mls @ 100 mls/hr 01/11/22 12:22 01/11/22 14:25 Sodium Chloride IV 01/11/22 12:51 Infused ONCE ONE Infusion Sodium Chloride 1,000 mls @ 999 mls/hr 01/11/22 13:15 01/11/22 14:25 Ns IV 01/11/22 14:15 999 mls/hr .Q1H1M MARY CARMEN Administration Insulin Human Lispro 5 unit 01/11/22 15:35 01/11/22 16:10 Insulin Lispro 100 Unit/Ml 3 Ml Vial SUBCUT 01/11/22 15:36 5 unit ONCE ONE Administration Sodium Zirconium Cyclosilicate 10 gm 01/11/22 11:57 01/11/22 12:08 Sodium Zirconium Cyclosilicate 10 Gm Powd.Pack PO 01/11/22 11:58 10 gm ONCE ONE Administration Medical Decision Making MDM Narrative Medical decision making narrative: 76-year-old female with a past medical history of chronic leg weakness wheelchair-bound, AFib on Eliquis, diabetes on insulin, HLD, HTN, CAD, CKD, 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 Patient complaining of bilateral knee pain. Per patient had ? fall 2 days ago, has been slurring speech x2 days which is increasingly worse with also noted confusion and leaning on right side. on exam vital signs stable, NAD, nontoxic appearing, physical exam as above with noted starts close speech, A&O x3, bilateral knee and right rib tenderness, abdomen soft/nontender. Concern for subacute CVA vs ICH vs fracture vs metabolic/infectious etiology plan: EKG, labs, UA, CXR, head/ C-spine CT, anticipated admission Medical Records Medical records reviewed: Yes I reviewed the patient's medical records. Lab Data Lab results reviewed: Yes I reviewed the patient's lab results. Result diagrams: 01/11/22 11:08 01/11/22 14:55 Labs: Lab Results 01/11/22 01/11/22 01/11/22 Range/Units 10:03 11:08 11:08 WBC 9.1 (4.8-10.8) X10*3/uL RBC 3.79 L (4.20-5.50) X10*6/uL Hgb 10.8 L (12.0-16.0) g/dl Hct 35.8 L (37.0-47.0) % MCV 94.5 (80.0-98.0) fL MCH 28.5 (27.0-33.0) pg MCHC 30.2 L (31.0-35.0) g/dl RDW 15.7 (11.0-16.0) % Plt Count 352 (160-400) X10*3/uL MPV 9.7 (9.4-12.3) fL Immature Gran % (Auto) 0.4 (0.0-0.4) % Neut % (Auto) 66.3 (45-73) % Lymph % (Auto) 20.0 (20-40) % Forest % (Auto) 9.7 (2-11) % Eos % (Auto) 3.3 (0-4) % Baso % (Auto) 0.3 (0-2) % Lymph # (Auto) 1.8 (1.2-4.9) X10*3/uL Forest # (Auto) 0.9 (0.1-1.2) X10*3/uL Eos # (Auto) 0.3 (0.0-0.4) X10*3/uL Baso # (Auto) 0.0 (0.0-0.2) X10*3/uL Abs Immat Gran (auto) 0.04 H (0.00-0.03) X10*3/uL Absolute Neuts (auto) 6.0 (2.0-8.3) x10*3/uL Absolute Nucleated RBC 0.000 (0.0-0.012) X10*3/uL Nucleated RBC % (auto) 0.0 (0.0-0.2) /100WBC PT (10.0-13.1) SEC INR (0.9-1.1) APTT (26.0-36.4) SEC Sodium 138 (135-145) mmol/L Potassium 7.6 H* D (3.3-5.1) mmol/L Chloride 109 H (96-108) mmol/L Carbon Dioxide 17 L (22-29) mmol/L Anion Gap 20 (12-20) BUN 76 H D (9-16) mg/dL Creatinine 5.20 H* (0.5-1.4) mg/dL Estim Creat Clear Calc 10.9 Estimated GFR 8 POC Glucose 152 H (60-115) mg/dL Random Glucose 168 H (60-115) mg/dL Calcium 8.3 L (8.4-10.2) mg/dL Magnesium 2.5 (1.6-2.6) mg/dL Total Bilirubin 0.3 (0.0-1.0) mg/dL Direct Bilirubin < 0.2 (0.0-0.5) mg/dL AST 19 D (5-31) U/L ALT 10 (0-31) U/L Alkaline Phosphatase 109 (39-117) U/L Total Creatine Kinase (26-140) U/L Troponin I High Sens (<3.5-17.0) ng/L B-Natriuretic Peptide (<100) pg/mL Total Protein 7.9 (6.5-8.0) g/dL Albumin 3.6 (3.5-5.0) g/dL Urine Color Urine Appearance Urine pH (5.0-9.0) Ur Specific Sandy (1.005-1.025) Urine Protein (Neg-Trace) mg/dL Urine Glucose (UA) (Negative) mg/dL Urine Ketones (Negative) mg/dL Urine Blood (Negative) Urine Nitrite (Negative) Ur Leukocyte Esterase (Negative) Urine RBC (0-2) /HPF Urine WBC (0-5) /HPF Ur Squamous Epith Cells (0-2) /HPF Urine Bacteria (None Seen) Hyaline Casts (0-2) /LPF COVID-19 (REE) (Negative) COVID-19 Clin Com Influenza Type A (ANGEL) (Negative) Influenza Type B (ANGEL) (Negative) Influenza A & B Note 01/11/22 01/11/22 01/11/22 Range/Units 11:08 11:08 11:08 WBC (4.8-10.8) X10*3/uL RBC (4.20-5.50) X10*6/uL Hgb (12.0-16.0) g/dl Hct (37.0-47.0) % MCV (80.0-98.0) fL MCH (27.0-33.0) pg MCHC (31.0-35.0) g/dl RDW (11.0-16.0) % Plt Count (160-400) X10*3/uL MPV (9.4-12.3) fL Immature Gran % (Auto) (0.0-0.4) % Neut % (Auto) (45-73) % Lymph % (Auto) (20-40) % Forest % (Auto) (2-11) % Eos % (Auto) (0-4) % Baso % (Auto) (0-2) % Lymph # (Auto) (1.2-4.9) X10*3/uL Forest # (Auto) (0.1-1.2) X10*3/uL Eos # (Auto) (0.0-0.4) X10*3/uL Baso # (Auto) (0.0-0.2) X10*3/uL Abs Immat Gran (auto) (0.00-0.03) X10*3/uL Absolute Neuts (auto) (2.0-8.3) x10*3/uL Absolute Nucleated RBC (0.0-0.012) X10*3/uL Nucleated RBC % (auto) (0.0-0.2) /100WBC PT 18.9 H (10.0-13.1) SEC INR 1.6 H (0.9-1.1) APTT 37.6 H (26.0-36.4) SEC Sodium (135-145) mmol/L Potassium (3.3-5.1) mmol/L Chloride (96-108) mmol/L Carbon Dioxide (22-29) mmol/L Anion Gap (12-20) BUN (9-16) mg/dL Creatinine (0.5-1.4) mg/dL Estim Creat Clear Calc Estimated GFR POC Glucose (60-115) mg/dL Random Glucose (60-115) mg/dL Calcium (8.4-10.2) mg/dL Magnesium (1.6-2.6) mg/dL Total Bilirubin (0.0-1.0) mg/dL Direct Bilirubin (0.0-0.5) mg/dL AST (5-31) U/L ALT (0-31) U/L Alkaline Phosphatase (39-117) U/L Total Creatine Kinase (26-140) U/L Troponin I High Sens 7.2 (<3.5-17.0) ng/L B-Natriuretic Peptide 91 (<100) pg/mL Total Protein (6.5-8.0) g/dL Albumin (3.5-5.0) g/dL Urine Color Urine Appearance Urine pH (5.0-9.0) Ur Specific Sandy (1.005-1.025) Urine Protein (Neg-Trace) mg/dL Urine Glucose (UA) (Negative) mg/dL Urine Ketones (Negative) mg/dL Urine Blood (Negative) Urine Nitrite (Negative) Ur Leukocyte Esterase (Negative) Urine RBC (0-2) /HPF Urine WBC (0-5) /HPF Ur Squamous Epith Cells (0-2) /HPF Urine Bacteria (None Seen) Hyaline Casts (0-2) /LPF COVID-19 (REE) (Negative) COVID-19 Clin Com Influenza Type A (ANGEL) (Negative) Influenza Type B (ANGEL) (Negative) Influenza A & B Note 01/11/22 01/11/22 01/11/22 Range/Units 11:08 11:08 11:08 WBC (4.8-10.8) X10*3/uL RBC (4.20-5.50) X10*6/uL Hgb (12.0-16.0) g/dl Hct (37.0-47.0) % MCV (80.0-98.0) fL MCH (27.0-33.0) pg MCHC (31.0-35.0) g/dl RDW (11.0-16.0) % Plt Count (160-400) X10*3/uL MPV (9.4-12.3) fL Immature Gran % (Auto) (0.0-0.4) % Neut % (Auto) (45-73) % Lymph % (Auto) (20-40) % Forest % (Auto) (2-11) % Eos % (Auto) (0-4) % Baso % (Auto) (0-2) % Lymph # (Auto) (1.2-4.9) X10*3/uL Forest # (Auto) (0.1-1.2) X10*3/uL Eos # (Auto) (0.0-0.4) X10*3/uL Baso # (Auto) (0.0-0.2) X10*3/uL Abs Immat Gran (auto) (0.00-0.03) X10*3/uL Absolute Neuts (auto) (2.0-8.3) x10*3/uL Absolute Nucleated RBC (0.0-0.012) X10*3/uL Nucleated RBC % (auto) (0.0-0.2) /100WBC PT (10.0-13.1) SEC INR (0.9-1.1) APTT (26.0-36.4) SEC Sodium (135-145) mmol/L Potassium (3.3-5.1) mmol/L Chloride (96-108) mmol/L Carbon Dioxide (22-29) mmol/L Anion Gap (12-20) BUN (9-16) mg/dL Creatinine (0.5-1.4) mg/dL Estim Creat Clear Calc Estimated GFR POC Glucose (60-115) mg/dL Random Glucose (60-115) mg/dL Calcium (8.4-10.2) mg/dL Magnesium (1.6-2.6) mg/dL Total Bilirubin (0.0-1.0) mg/dL Direct Bilirubin (0.0-0.5) mg/dL AST (5-31) U/L ALT (0-31) U/L Alkaline Phosphatase (39-117) U/L Total Creatine Kinase 1210 H D (26-140) U/L Troponin I High Sens (<3.5-17.0) ng/L B-Natriuretic Peptide (<100) pg/mL Total Protein (6.5-8.0) g/dL Albumin (3.5-5.0) g/dL Urine Color Urine Appearance Urine pH (5.0-9.0) Ur Specific Sandy (1.005-1.025) Urine Protein (Neg-Trace) mg/dL Urine Glucose (UA) (Negative) mg/dL Urine Ketones (Negative) mg/dL Urine Blood (Negative) Urine Nitrite (Negative) Ur Leukocyte Esterase (Negative) Urine RBC (0-2) /HPF Urine WBC (0-5) /HPF Ur Squamous Epith Cells (0-2) /HPF Urine Bacteria (None Seen) Hyaline Casts (0-2) /LPF COVID-19 (REE) Negative (Negative) COVID-19 Clin Com See Note Influenza Type A (ANGEL) Negative (Negative) Influenza Type B (ANGEL) Negative (Negative) Influenza A & B Note See Note 01/11/22 01/11/22 01/11/22 Range/Units 12:37 14:55 14:55 WBC (4.8-10.8) X10*3/uL RBC (4.20-5.50) X10*6/uL Hgb (12.0-16.0) g/dl Hct (37.0-47.0) % MCV (80.0-98.0) fL MCH (27.0-33.0) pg MCHC (31.0-35.0) g/dl RDW (11.0-16.0) % Plt Count (160-400) X10*3/uL MPV (9.4-12.3) fL Immature Gran % (Auto) (0.0-0.4) % Neut % (Auto) (45-73) % Lymph % (Auto) (20-40) % Forest % (Auto) (2-11) % Eos % (Auto) (0-4) % Baso % (Auto) (0-2) % Lymph # (Auto) (1.2-4.9) X10*3/uL Forest # (Auto) (0.1-1.2) X10*3/uL Eos # (Auto) (0.0-0.4) X10*3/uL Baso # (Auto) (0.0-0.2) X10*3/uL Abs Immat Gran (auto) (0.00-0.03) X10*3/uL Absolute Neuts (auto) (2.0-8.3) x10*3/uL Absolute Nucleated RBC (0.0-0.012) X10*3/uL Nucleated RBC % (auto) (0.0-0.2) /100WBC PT (10.0-13.1) SEC INR (0.9-1.1) APTT (26.0-36.4) SEC Sodium 137 (135-145) mmol/L Potassium 6.5 H* (3.3-5.1) mmol/L Chloride 110 H (96-108) mmol/L Carbon Dioxide 18 L (22-29) mmol/L Anion Gap 16 (12-20) BUN 71 H (9-16) mg/dL Creatinine 4.81 H* (0.5-1.4) mg/dL Estim Creat Clear Calc 11.7 Estimated GFR 9 POC Glucose (60-115) mg/dL Random Glucose 146 H (60-115) mg/dL Calcium 8.1 L (8.4-10.2) mg/dL Magnesium (1.6-2.6) mg/dL Total Bilirubin (0.0-1.0) mg/dL Direct Bilirubin (0.0-0.5) mg/dL AST (5-31) U/L ALT (0-31) U/L Alkaline Phosphatase (39-117) U/L Total Creatine Kinase (26-140) U/L Troponin I High Sens 8.2 (<3.5-17.0) ng/L B-Natriuretic Peptide (<100) pg/mL Total Protein (6.5-8.0) g/dL Albumin (3.5-5.0) g/dL Urine Color Dark Yellow Urine Appearance Turbid Urine pH 7.0 (5.0-9.0) Ur Specific Sandy 1.020 (1.005-1.025) Urine Protein 300 (3+) H (Neg-Trace) mg/dL Urine Glucose (UA) Negative (Negative) mg/dL Urine Ketones Negative (Negative) mg/dL Urine Blood Moderate (2+) H (Negative) Urine Nitrite Negative (Negative) Ur Leukocyte Esterase Large (3+) H (Negative) Urine RBC 11-20 H (0-2) /HPF Urine WBC >50 H (0-5) /HPF Ur Squamous Epith Cells 6-10 (0-2) /HPF Urine Bacteria 4+ (None Seen) Hyaline Casts 0-2 (0-2) /LPF COVID-19 (REE) (Negative) COVID-19 Clin Com Influenza Type A (ANGEL) (Negative) Influenza Type B (ANGEL) (Negative) Influenza A & B Note 01/11/22 Range/Units 15:42 WBC (4.8-10.8) X10*3/uL RBC (4.20-5.50) X10*6/uL Hgb (12.0-16.0) g/dl Hct (37.0-47.0) % MCV (80.0-98.0) fL MCH (27.0-33.0) pg MCHC (31.0-35.0) g/dl RDW (11.0-16.0) % Plt Count (160-400) X10*3/uL MPV (9.4-12.3) fL Immature Gran % (Auto) (0.0-0.4) % Neut % (Auto) (45-73) % Lymph % (Auto) (20-40) % Forest % (Auto) (2-11) % Eos % (Auto) (0-4) % Baso % (Auto) (0-2) % Lymph # (Auto) (1.2-4.9) X10*3/uL Forest # (Auto) (0.1-1.2) X10*3/uL Eos # (Auto) (0.0-0.4) X10*3/uL Baso # (Auto) (0.0-0.2) X10*3/uL Abs Immat Gran (auto) (0.00-0.03) X10*3/uL Absolute Neuts (auto) (2.0-8.3) x10*3/uL Absolute Nucleated RBC (0.0-0.012) X10*3/uL Nucleated RBC % (auto) (0.0-0.2) /100WBC PT (10.0-13.1) SEC INR (0.9-1.1) APTT (26.0-36.4) SEC Sodium (135-145) mmol/L Potassium (3.3-5.1) mmol/L Chloride (96-108) mmol/L Carbon Dioxide (22-29) mmol/L Anion Gap (12-20) BUN (9-16) mg/dL Creatinine (0.5-1.4) mg/dL Estim Creat Clear Calc Estimated GFR POC Glucose 131 H (60-115) mg/dL Random Glucose (60-115) mg/dL Calcium (8.4-10.2) mg/dL Magnesium (1.6-2.6) mg/dL Total Bilirubin (0.0-1.0) mg/dL Direct Bilirubin (0.0-0.5) mg/dL AST (5-31) U/L ALT (0-31) U/L Alkaline Phosphatase (39-117) U/L Total Creatine Kinase (26-140) U/L Troponin I High Sens (<3.5-17.0) ng/L B-Natriuretic Peptide (<100) pg/mL Total Protein (6.5-8.0) g/dL Albumin (3.5-5.0) g/dL Urine Color Urine Appearance Urine pH (5.0-9.0) Ur Specific Sandy (1.005-1.025) Urine Protein (Neg-Trace) mg/dL Urine Glucose (UA) (Negative) mg/dL Urine Ketones (Negative) mg/dL Urine Blood (Negative) Urine Nitrite (Negative) Ur Leukocyte Esterase (Negative) Urine RBC (0-2) /HPF Urine WBC (0-5) /HPF Ur Squamous Epith Cells (0-2) /HPF Urine Bacteria (None Seen) Hyaline Casts (0-2) /LPF COVID-19 (REE) (Negative) COVID-19 Clin Com Influenza Type A (ANGEL) (Negative) Influenza Type B (ANGEL) (Negative) Influenza A & B Note ECG Data Attestation: I personally reviewed and interpreted this ECG as follows: Interpretation: EKG normal sinus rhythm at a rate of 60. Low-voltage QRS. QTC 456. No STEMI. Critical Care Time Critical Care Time Critical Care Time: Yes Total Critical Care Time: 45 Attestation: I have personally provided critical care time exclusive of time spent on separately billable procedures. Time includes review of lab data, radiology results, discussion with consultants, and monitoring for potential decompensation. Intervention performed as documented. Discharge Plan Discharge Clinical Impression: Acute kidney injury superimposed on CKD, Acute hyperkalemia, Acute UTI, Hydroureteronephrosis Patient Disposition: Admitted As Inpatient
--- NOTE | 2022-01-11 09:34 | ECG_ITS ---
Test Reason : FALL Blood Pressure : / mmHG Vent. Rate : 060 BPM Atrial Rate : 060 BPM P-R Int : 166 ms QRS Dur : 076 ms QT Int : 456 ms P-R-T Axes : 030 033 048 degrees QTc Int : 456 ms Normal sinus rhythm Low voltage QRS QT has lengthened Borderline ECG When compared with ECG of 15-JUL-2021 13:25, Nonspecific T wave abnormality no longer evident in Inferior leads Nonspecific T wave abnormality no longer evident in Anterolateral leads Referred By: Cass Pollack Electronically Signed By:SILVA MOYA MD
--- NOTE | 2022-01-11 09:45 | PC.NURSE ---
pt reports that this morning she was getting out of bed and her legs got weak and she fell. she reports hitting her head, no loc. she stated that her 9y old grandson witnessed her fall. c/o full body ache, denies headache/dizziness. information obtained via staff auditor.
[2022-01-11 10:06] LABS: Glucose, Whole Blood 152 mg/dL (60-115)
--- NOTE | 2022-01-11 11:14 | PC.NURSE ---
Daughter reports pt had fall 2 days ago and found on floor this morning. Worsening weakness, drowsiness with slurred speech over past week. Pt noted with weakness on exam to upper right side and slurred speech. Sinus liya on tele. Breathing even/unlabored. Skin normal for ethnicity, warm and dry. IV established, labs sent. Awaits CT scan.
[2022-01-11 11:16] LABS: MANUAL DIFF FLAG NO
[2022-01-11 11:17] LABS: Basophils Percent Auto 0.3 % (0-2); Eosinophils Absolute Auto 0.3 X10*3/uL (0.0-0.4); Eosinophils Percent Auto 3.3 % (0-4); Hematocrit 35.8 % (37.0-47.0); Hemoglobin 10.8 g/dl (12.0-16.0); Imm Gran Abs Auto 0.04 X10*3/uL (0.00-0.03); Imm Gran Pct Auto 0.4 % (0.0-0.4); Lymphocytes Absolute Auto 1.8 X10*3/uL (1.2-4.9); Mean Corpuscular HGB Conc 30.2 g/dl (31.0-35.0); Mean Corpuscular Hemoglobin 28.5 pg (27.0-33.0); Mean Corpuscular Volume 94.5 fL (80.0-98.0); Mean Platelet Volume 9.7 fL (9.4-12.3); Monocytes Absolute Auto 0.9 X10*3/uL (0.1-1.2); Monocytes Percent Auto 9.7 % (2-11); Neutrophils Percent Auto 66.3 % (45-73); Platelet Count 352 X10*3/uL (160-400); Red Blood Count 3.79 X10*6/uL (4.20-5.50); Red Cell Distribution Width 15.7 % (11.0-16.0); White Blood Count 9.1 X10*3/uL (4.8-10.8)
[2022-01-11 11:22] LABS: INTERNATIONAL NORM RATIO 1.6 (0.9-1.1); Prothrombin Time 18.9 SEC (10.0-13.1)
[2022-01-11 11:25] LABS: Partial Thromboplastin Time 37.6 SEC (26.0-36.4)
[2022-01-11 11:37] LABS: COVID-19 Test Negative (Negative); IDNOW Serial# 16C4AD1C; IDNOW Serial# 9DB6401D; Influenza A Negative (Negative); Influenza B2 Negative (Negative)
[2022-01-11 11:39] LABS: B Type Natriuretic Peptide 91 pg/mL (<100); Troponin-I High Sensitivity 7.2 ng/L (<3.5-17.0)
[2022-01-11 11:48] LABS: Alanine Aminotransferase 10 U/L (0-31); Albumin Level 3.6 g/dL (3.5-5.0); Alkaline Phosphatase 109 U/L (39-117); Anion Gap 20 (12-20); Aspartate Amino Transferase 19 U/L (5-31); Bilirubin Direct < 0.2 mg/dL (0.0-0.5); Bilirubin Total 0.3 mg/dL (0.0-1.0); Blood Urea Nitrogen 76 mg/dL (9-16); Calcium 8.3 mg/dL (8.4-10.2); Carbon Dioxide 17 mmol/L (22-29); Chloride 109 mmol/L (96-108); Creatinine Clr Calc Pharmacy 10.9; Estimated Glomerular Filt Rate 8; Glucose Random 168 mg/dL (60-115); Magnesium 2.5 mg/dL (1.6-2.6); Potassium 7.6 mmol/L (3.3-5.1); Sodium 138 mmol/L (135-145); Total Protein 7.9 g/dL (6.5-8.0)
[2022-01-11] MEDS: Sodium Zirconium Cyclosilicate 10 GM POWD.PACK PO ×2 (12:08→16:57)
[2022-01-11] MEDS: Calcium Gluconate/NaCl,Iso-Osm 1 GM/50 ML PLAST..BAG IV (12:09)
[2022-01-11] MEDS: 0.9 % Sodium Chloride 1,000 ML 999 ML IV ×2 (12:10→14:25)
[2022-01-11 12:43] LABS: Appearance Urine Turbid; Color Urine Dark Yellow; Glucose Urine UA Negative (Negative); Leukocyte Esterase Urine Large (3+) (Negative); Nitrite Urine Negative (Negative); UMIC TRIGGER UACC YES; Urine Blood Moderate (2+) (Negative); Urine Ketones Negative (Negative); Urine Protein 300 (3+) mg/dL (Neg-Trace)
[2022-01-11] MEDS: Albuterol Sulfate 2.5 MG, Albuterol Sulfate (0.083%) 2.5 MG 5 MG INHALE ×2 (12:43→17:59)
[2022-01-11 13:06] LABS: Bacteria Urine 4+ (None Seen); Hyaline Casts Urine 0-2 /LPF (0-2); UACC Culture Trigger YES; WBC Urine >50 /HPF (0-5)
[2022-01-11] MEDS: cefTRIAXone sodium 1 GM in 0.9 % Sodium Chloride 50 ML IV (13:29)
[2022-01-11 15:35] LABS: Anion Gap 16 (12-20); Blood Urea Nitrogen 71 mg/dL (9-16); Calcium 8.1 mg/dL (8.4-10.2); Carbon Dioxide 18 mmol/L (22-29); Chloride 110 mmol/L (96-108); Creatinine Clr Calc Pharmacy 11.7; Estimated Glomerular Filt Rate 9; Glucose Random 146 mg/dL (60-115); Potassium 6.5 mmol/L (3.3-5.1); Sodium 137 mmol/L (135-145)
[2022-01-11 15:37] LABS: Troponin-I High Sensitivity 8.2 ng/L (<3.5-17.0)
[2022-01-11 15:46] LABS: Glucose, Whole Blood 131 mg/dL (60-115)
[2022-01-11] MEDS: Insulin Lispro 100 UNIT/ML 3 ML VIAL SUBCUT ×3 (16:10→21:02)
[2022-01-11] MEDS: Dextrose 50 % 25 GM/50 ML SYRINGE IVPUSH (16:57)
--- NOTE | 2022-01-11 17:00 | PC.NURSE ---
Pt given multiple meds for K+ shift as charted. Solis inserted per order per Cass CHERRY, urine dark,odorous and thick. Pt appears more alert than on arrival but continues to fall asleep easily. Dr Luu at bedside for evaluation. Apple juice initially given with Humalog 5 units, second dose, Dextrose amp given as ordered. IV positional, fluids continue to infuse
--- NOTE | 2022-01-11 17:35 | PM.IMHP ---
History of Present Illness Date of Service: 01/11/22 Attending physician on admission: Kimberly Luu Chief Complaint: fall/ confusion 76-year-old female patient with past medical history significant for hypertension, hyperlipidemia, diabetes mellitus on insulin, coronary artery disease, chronic bilateral leg weakness on motorized chair, history of cervical spine surgery, history of anxiety depression, chronic pain syndrome, history of chronic kidney disease with history of bilateral hydronephrosis / hydroureter and distended bladder recently discharged from [facility] on October 14 after being treated for obstructive uropathy was discharged home on indwelling Solis catheter however had a follow-up with Dr. Calhoun Solis catheter was removed patient was given 1 week course of Bactrim on 12/27 for possible UTI, patient was brought into [facility] since she fell from motorized chair when she was trying to move from bed to chair daughter denies any head injury, patient has been noted to be confused with thick speech in last few days, she has had few falls in last couple weeks, patient denies fever chills she denies chest pain, no shortness of breath no cough, no headache, no dizziness, no nausea no vomiting no abdominal pain no diarrhea patient denies urinary urgency or frequency, workup in the emergency room showed a normal CT head, C-spine x-ray showed partial laminectomy from C2 through C6 vertebra large osteophyte C2-C6 vertebra causing spinal canal stenosis no acute fractures, CT abdomen and pelvis showed bilateral hydroureteronephrosis improved from before, diffusely thick-walled urinary bladder, no radiodense urinary tract calculi labs showed potassium of 7.6, creatinine 5.2 with recent creatinine of 1.67 on November 23, UA grossly positive, patient received IV fluid, IV antibiotic, Lokelma, DC 50 and insulin potassium improved to 6.5 patient is now being admitted to [facility] due to acute on chronic renal failure, hyperkalemia, and mental status change. Review of Systems Review of Systems: General no headache, 5no dizziness no fever chills. CVS no chest pain, no palpitation. Respiratory no cough no sob. Gastrointestinal no nausea no vomiting, no abdominal pain Yes all other systems are reviewed and are negative PMFSH Medical History Anxiety and depression Arthritis Asthma Atrial flutter Chronic kidney disease, stage 3 Chronic pain Diabetes mellitus High cholesterol History of myocardial infarction HTN (hypertension) Hyperglycemia Lateral malleolar fracture Limited mobility Multiple falls Myocardial infarction On anticoagulant therapy On beta lanette at home Paroxysmal atrial fibrillation Type 2 diabetes mellitus with unspecified complications Urgency incontinence Family History Father No problems noted. Mother Diabetes High blood pressure Stomach cancer Surgical History H/O neck surgery History of cataract extraction History of cystoscopy History of heart artery stent Hx of cholecystectomy Hx of colonoscopy Social History Household Members: None Housing: Apartment Are you a primary managed care analyst to a significant other at home: No Do you presently have visiting nurse or other home services: Yes Alcohol intake: current Alcohol intake frequency: does not drink Patient Tobacco Use Status: Former Tobacco user Quit Date: 2005 Tobacco use type: Cigarette Years Smoked: 30-40 years Smoked in Last 30 Days: No Second Hand Smoke Exposure: No Use of substances other than those prescribed or required for medical reasons: No Have you been hit, kicked, punched, or otherwise hurt by someone within the past year? If so, by whom?: No Do you feel safe in your current relationship?: No Is there a partner from a previous relationship who is making you feel unsafe now?: No Are you made to feel afraid or neglected: No Advance Directives: No Advance Directives Information Provided: Yes Do you have thoughts of harming others: None Do you have a plan to hurt others: No Plan Recently lost weight without trying: No Eating poorly because of decreased appetite: No Nutrition Risks: No Nutritional Risk Patient : No : No Poor oral hygiene: No service: No Current occupational status: disabled Meds Allergies Allergy/AdvReac Type Severity Reaction Status Date / Time atorvastatin [ATORVASTATIN] Allergy Intermediate SWELLING Verified 11/30/21 14:19 morphine [MORPHINE] Allergy Intermediate RASH Verified 11/30/21 14:19 zolpidem [From AMBIEN] AdvReac Intermediate SLEEP WALKS Verified 11/30/21 14:19 Active Medications: Current Medications Acetaminophen (Acetaminophen 325 Mg Tablet) 650 mg PO Q6H PRN PRN Reason: Pain, Mild (Pain Scale 1-3) Dextrose (Dextrose 50 % 25 Gm/50 Ml Syringe) 25 gm IVPUSH Q15M PRN; Protocol PRN Reason: per Hypoglycemia Standing Ord. Glucose (Glucose Gel 15 Gm Gel..Gram.) 15 gm PO Q15M PRN; Protocol PRN Reason: per Hypoglycemia Standing Ord. Sodium Chloride (Ns) 1,000 mls @ 100 mls/hr IVCONT .Q10H [facility] Insulin Human Lispro (Insulin Lispro 100 Unit/Ml 3 Ml Vial) 0 unit SUBCUT QIDACHS [facility]; Protocol Ondansetron HCl (Ondansetron Hcl 4 Mg/2 Ml Vial) 4 mg IVPUSH Q8H PRN PRN Reason: Nausea and Vomiting Pharmacy Consult (Consult Rx Perform Med Rec) 1 each MISCELLANE ONCE PRN PRN Reason: Consult order Sodium Chloride (0.9 % Sodium Chloride Flush 3 Ml Syringe) 3 ml IVFLUSH QSHIFT [facility] Home Medications Medication Instructions Recorded Confirmed Last Taken Type aspirin 81 mg capsule 81 mg PO DAILY 01/21/21 11/30/21 10/29/21 History lancing device with lancets kit #1 ea 03/24/21 11/30/21 Unknown History (Jiglu Lancing Device kit) metoprolol tartrate 25 mg tablet 25 mg PO BID 07/15/21 01/11/22 11/03/21 08:15 History quetiapine 300 mg tablet 150 mg PO BEDTIME PRN Insomnia 07/15/21 01/11/22 10/11/21 History insulin glargine 100 unit/mL (3 15 unit subcut BEDTIME 10/11/21 01/11/22 01/10/22 History mL) subcutaneous pen (Lantus Solostar U-100 Insulin) lisinopril 20 1 tab PO DAILY 10/29/21 11/30/21 Unknown History mg-hydrochlorothiazide 25 mg tablet albuterol sulfate 90 mcg/actuation 2 puff inhalation QID PRN 11/30/21 01/11/22 Unknown History aerosol inhaler Respiratory Distress duloxetine 30 mg capsule,delayed 30 mg PO DAILY 11/30/21 11/30/21 Unknown History release ferrous sulfate 325 mg (65 mg 325 mg PO DAILY 11/30/21 11/30/21 Unknown History iron) tablet fluoxetine 20 mg capsule 20 mg PO DAILY 11/30/21 01/11/22 Unknown History gabapentin 400 mg capsule 400 mg PO TID 11/30/21 01/11/22 Unknown History ciprofloxacin 0.3 %-dexamethasone 4 drp otic (ears) BID 01/11/22 Unknown History 0.1 % ear drops,suspension gabapentin 600 mg tablet 1 tab PO BEDTIME 01/11/22 01/11/22 Unknown History sulfamethoxazole 800 1 tab PO BID 01/11/22 01/11/22 01/11/22 History mg-trimethoprim 160 mg tablet Physical Exam Vital Signs and Narrative: Vital Signs: Last Vital Signs Temp 96.4 F L 01/11/22 09:07 Pulse 57 01/11/22 16:21 Resp 12 01/11/22 16:21 BP 118/55 L 01/11/22 16:21 Pulse Ox 98 01/11/22 16:21 O2 Del Method 01/11/22 16:21 BMI result Body Mass Index 37.8 Const: Other: General awake alert x3,no acute distress. HEENT pupil equal round reactive to light and accommodation anicteric sclera? Neck? no JVD. CVS? regular rate rhythm, Respiratory lungs clear to auscultation, no respiratory distress, no wheeze, no rhonchi. Gastrointestinal abdomen soft, obese, nontender, bowel sounds audible Extremities no? edema. Back no CVA tenderness Neuro nonfocal, thick speech, patient awake alert x3 answering questions appropriately, face symmetrical, decrease sensation and strength lower extremity chronic, no pronator drift Skin no rash Psych appropriate affect Results Labs CBC and Chem 7: 01/11/22 11:08 01/12/22 07:50 Labs: Laboratory Results - last 24 hr 01/11/22 01/11/22 01/11/22 10:03 11:08 11:08 MCV 94.5 MCH 28.5 MCHC 30.2 L RDW 15.7 Plt Count 352 MPV 9.7 Immature Gran % (Auto) 0.4 Neut % (Auto) 66.3 Lymph % (Auto) 20.0 [place] % (Auto) 9.7 Eos % (Auto) 3.3 Baso % (Auto) 0.3 Lymph # (Auto) 1.8 [place] # (Auto) 0.9 Eos # (Auto) 0.3 Baso # (Auto) 0.0 Abs Immat Gran (auto) 0.04 H Absolute Neuts (auto) 6.0 Absolute Nucleated RBC 0.000 Nucleated RBC % (auto) 0.0 PT INR APTT Anion Gap 20 Estim Creat Clear Calc 10.9 Estimated GFR 8 POC Glucose 152 H Random Glucose 168 H Calcium 8.3 L Magnesium 2.5 Total Bilirubin 0.3 Direct Bilirubin < 0.2 AST 19 D ALT 10 Alkaline Phosphatase 109 Total Creatine Kinase Troponin I High Sens B-Natriuretic Peptide Total Protein 7.9 Albumin 3.6 Urine Color Urine Appearance Urine pH Ur Specific [place] Urine Protein Urine Glucose (UA) Urine Ketones Urine Blood Urine Nitrite Ur Leukocyte Esterase Urine RBC Urine WBC Ur Squamous Epith Cells Urine Bacteria Hyaline Casts COVID-19 (REE) COVID-19 Clin Com Influenza Type A (ANGEL) Influenza Type B (ANGEL) Influenza A & B Note 01/11/22 01/11/22 01/11/22 11:08 11:08 11:08 MCV MCH MCHC RDW Plt Count MPV Immature Gran % (Auto) Neut % (Auto) Lymph % (Auto) [place] % (Auto) Eos % (Auto) Baso % (Auto) Lymph # (Auto) [place] # (Auto) Eos # (Auto) Baso # (Auto) Abs Immat Gran (auto) Absolute Neuts (auto) Absolute Nucleated RBC Nucleated RBC % (auto) PT 18.9 H INR 1.6 H APTT 37.6 H Anion Gap Estim Creat Clear Calc Estimated GFR POC Glucose Random Glucose Calcium Magnesium Total Bilirubin Direct Bilirubin AST ALT Alkaline Phosphatase Total Creatine Kinase Troponin I High Sens 7.2 B-Natriuretic Peptide 91 Total Protein Albumin Urine Color Urine Appearance Urine pH Ur Specific [place] Urine Protein Urine Glucose (UA) Urine Ketones Urine Blood Urine Nitrite Ur Leukocyte Esterase Urine RBC Urine WBC Ur Squamous Epith Cells Urine Bacteria Hyaline Casts COVID-19 (REE) COVID-19 Clin Com Influenza Type A (ANGEL) Influenza Type B (ANGEL) Influenza A & B Note 01/11/22 01/11/22 01/11/22 11:08 11:08 11:08 MCV MCH MCHC RDW Plt Count MPV Immature Gran % (Auto) Neut % (Auto) Lymph % (Auto) [place] % (Auto) Eos % (Auto) Baso % (Auto) Lymph # (Auto) [place] # (Auto) Eos # (Auto) Baso # (Auto) Abs Immat Gran (auto) Absolute Neuts (auto) Absolute Nucleated RBC Nucleated RBC % (auto) PT INR APTT Anion Gap Estim Creat Clear Calc Estimated GFR POC Glucose Random Glucose Calcium Magnesium Total Bilirubin Direct Bilirubin AST ALT Alkaline Phosphatase Total Creatine Kinase 1210 H D Troponin I High Sens B-Natriuretic Peptide Total Protein Albumin Urine Color Urine Appearance Urine pH Ur Specific [place] Urine Protein Urine Glucose (UA) Urine Ketones Urine Blood Urine Nitrite Ur Leukocyte Esterase Urine RBC Urine WBC Ur Squamous Epith Cells Urine Bacteria Hyaline Casts COVID-19 (REE) Negative COVID-19 Clin Com See Note Influenza Type A (ANGEL) Negative Influenza Type B (ANGEL) Negative Influenza A & B Note See Note 01/11/22 01/11/22 01/11/22 12:37 14:55 14:55 MCV MCH MCHC RDW Plt Count MPV Immature Gran % (Auto) Neut % (Auto) Lymph % (Auto) [place] % (Auto) Eos % (Auto) Baso % (Auto) Lymph # (Auto) [place] # (Auto) Eos # (Auto) Baso # (Auto) Abs Immat Gran (auto) Absolute Neuts (auto) Absolute Nucleated RBC Nucleated RBC % (auto) PT INR APTT Anion Gap 16 Estim Creat Clear Calc 11.7 Estimated GFR 9 POC Glucose Random Glucose 146 H Calcium 8.1 L Magnesium Total Bilirubin Direct Bilirubin AST ALT Alkaline Phosphatase Total Creatine Kinase Troponin I High Sens 8.2 B-Natriuretic Peptide Total Protein Albumin Urine Color Dark Yellow Urine Appearance Turbid Urine pH 7.0 Ur Specific [place] 1.020 Urine Protein 300 (3+) H Urine Glucose (UA) Negative Urine Ketones Negative Urine Blood Moderate (2+) H Urine Nitrite Negative Ur Leukocyte Esterase Large (3+) H Urine RBC 11-20 H Urine WBC >50 H Ur Squamous Epith Cells 6-10 Urine Bacteria 4+ Hyaline Casts 0-2 COVID-19 (REE) COVID-19 Clin Com Influenza Type A (ANGEL) Influenza Type B (ANGEL) Influenza A & B Note 01/11/22 15:42 MCV MCH MCHC RDW Plt Count MPV Immature Gran % (Auto) Neut % (Auto) Lymph % (Auto) [place] % (Auto) Eos % (Auto) Baso % (Auto) Lymph # (Auto) [place] # (Auto) Eos # (Auto) Baso # (Auto) Abs Immat Gran (auto) Absolute Neuts (auto) Absolute Nucleated RBC Nucleated RBC % (auto) PT INR APTT Anion Gap Estim Creat Clear Calc Estimated GFR POC Glucose 131 H Random Glucose Calcium Magnesium Total Bilirubin Direct Bilirubin AST ALT Alkaline Phosphatase Total Creatine Kinase Troponin I High Sens B-Natriuretic Peptide Total Protein Albumin Urine Color Urine Appearance Urine pH Ur Specific [place] Urine Protein Urine Glucose (UA) Urine Ketones Urine Blood Urine Nitrite Ur Leukocyte Esterase Urine RBC Urine WBC Ur Squamous Epith Cells Urine Bacteria Hyaline Casts COVID-19 (REE) COVID-19 Clin Com Influenza Type A (ANGEL) Influenza Type B (ANGEL) Influenza A & B Note Imaging Radiologist's Impressions: Impressions Knee X-Ray 01/11/22 10:22 IMPRESSION: Degenerative arthritic changes bilateral knee. There is mild suprapatellar joint effusion right knee. No visible acute fracture or dislocation in either knee. Unremarkable chest exam. There is no visible rib fracture on either side. Knee X-Ray 01/11/22 10:22 IMPRESSION: Degenerative arthritic changes bilateral knee. There is mild suprapatellar joint effusion right knee. No visible acute fracture or dislocation in either knee. Unremarkable chest exam. There is no visible rib fracture on either side. Ribs w/Chest X-Ray 01/11/22 10:30 IMPRESSION: Degenerative arthritic changes bilateral knee. There is mild suprapatellar joint effusion right knee. No visible acute fracture or dislocation in either knee. Unremarkable chest exam. There is no visible rib fracture on either side. Cervical Spine CT 01/11/22 11:33 IMPRESSION: No acute intracranial process seen. Partial laminectomy from C2 through C6 vertebra stabilized with bilateral posterior hardware. There is a large osteophyte posterior ossification calcification from C2 to C6 vertebra causing spinal canal stenosis. There is no acute fracture or subluxation seen. Head CT 01/11/22 11:33 IMPRESSION: No acute intracranial process seen. Partial laminectomy from C2 through C6 vertebra stabilized with bilateral posterior hardware. There is a large osteophyte posterior ossification calcification from C2 to C6 vertebra causing spinal canal stenosis. There is no acute fracture or subluxation seen. Abdomen/Pelvis CT 01/11/22 14:15 IMPRESSION: 1. Bilateral hydroureteronephrosis as above. The degree of hydronephrosis. Overall improved since 10/11/2021. 2. Diffusely thick-walled urinary bladder. Correlate clinically with signs or symptoms of cystitis or chronic bladder dysfunction. 3. No radiodense urinary tract calculi. 4. Additional ancillary findings, as described. Assessment and Plan (1) Acute kidney injury superimposed on CKD: Status: Acute (2) Acute hyperkalemia: Status: Acute (3) HTN (hypertension): Status: Acute (4) Acute UTI: Status: Acute Plan 76-year-old female patient with a past medical history of hypertension, hyperlipidemia, diabetes, CAD, CKD, chronic bilateral leg weakness, history of cervical spine [id number]; urge incontinence, anxiety, depression, arthritis, chronic pain syndrome; presented to the hospital today after mechanical fall, also with confusion and speech impairment of few days duration. acute toxic metabolic encephalopathy likely due do acute kidney injury, hyperkalemia and possible UTI CT head negative confusion resolved answering questions appropriately/ thick speech likely due to Neurontin will treat infection and correct electrolyte abnormality,all meds renally dose acute on chronic kidney disease stage 3 with hyperkalemia likely due to recent use of Bactrim,juan and due to obstructive uropathy continue IV fluid, Solis catheter, hold nephrotoxins including lisinopril received multiple doses of Lokelma, insulin with D50 and calcium gluconate in ED repeat Lokelma follow BMP consult Nephrology mechanical fall patient is wheelchair-bound acute UTI follow urine culture , IV ceftriaxone elevated CPK likely due to recurrent fall will treat with IV fluids and follow CK History of neuropathy: will resume Neurontin renally dosed? History of diabetes on insulin will place on Insulin sliding scale and diabetic diet History of CAD: Continue home aspirin, statin and beta-lanette History of paroxysmal AFib: Continue home Eliquis, chads vascular score of 5,rate controlled,continue metoprolol. History of depression:?will resume home meds Seroquel, and venlafaxine DVT prophylaxis:?Eliquis Code status: Full code Patient will need 2 night inpatient stay for acute renal injury requiring IV fluids and frequent lab monitoring. Quality Stroke Does the patient have a stroke diagnosis?: No VTE Prior VTE?: No VTE Risk Level:: Medical - moderate - high VTE Device Contraindication: Treatment Not Indicated VTE Drug Contraindication: N/A - Med Ordered
[2022-01-11 17:51] LABS: Glucose, Whole Blood 233 mg/dL (60-115)
[2022-01-11] MEDS: 0.9 % Sodium Chloride 1,000 ML 100 ML IVCONT (18:13)
[2022-01-11 19:53] LABS: Anion Gap 17 (12-20); Blood Urea Nitrogen 70 mg/dL (9-16); Calcium 7.9 mg/dL (8.4-10.2); Carbon Dioxide 16 mmol/L (22-29); Chloride 112 mmol/L (96-108); Creatinine Clr Calc Pharmacy 12.2; Estimated Glomerular Filt Rate 9; Glucose Random 202 mg/dL (60-115); Potassium 5.3 mmol/L (3.3-5.1); Sodium 140 mmol/L (135-145)
--- NOTE | 2022-01-11 20:24 | PHA.MEDREC ---
MED REC COMPLETE, TALKED TO PATIENTS DAUGHTER AND SHE SAYS THE ONLY MEDS THE PATIENT IS ACTUALLY TAKING ARE THE BOTTLES SHE HAD ON HER. I CONFIRMED ALL THESE MEDS. THERE IS MORE MEDICATION THAT WAS RECENTLY FILLED FOR PATIENT IT IS UNCLEAR WHY SHE IS NOT TAKING THESE Pharmacy Consult ? Medication Reconciliation Pharmacy has completed the medication reconciliation.
[2022-01-11 20:57] LABS: Glucose, Whole Blood 171 mg/dL (60-115)
[2022-01-12] MEDS: 0.9 % Sodium Chloride Flush 3 ML SYRINGE IVFLUSH ×3 (00:21→20:16)
[2022-01-12] MEDS: Acetaminophen 325 MG TABLET 650 MG PO (00:26)
[2022-01-12 04:00] VITALS: BP 140/60; PULSE 64; RESP 20; TEMP 35.8; O2SAT 99
[2022-01-12] MEDS: 0.9 % Sodium Chloride 1,000 ML 100 ML IVCONT ×2 (06:25→17:10)
[2022-01-12 07:39] LABS: Glucose, Whole Blood 141 mg/dL (60-115)
[2022-01-12 07:54] VITALS: BP 138/66; PULSE 67; RESP 16; TEMP 36; O2SAT 99
[2022-01-12] MEDS: FLUoxetine HCl 20 MG CAPSULE PO (08:43)
[2022-01-12] MEDS: Metoprolol Tartrate 25 MG TABLET PO ×2 (08:43→20:14)
[2022-01-12] MEDS: Apixaban 5 MG TABLET PO (08:43)
[2022-01-12 09:13] LABS: Blood Urea Nitrogen 68 mg/dL (9-16); Calcium 8.1 mg/dL (8.4-10.2); Glucose Random 154 mg/dL (60-115)
[2022-01-12 09:15] LABS: Anion Gap 20 (12-20); Carbon Dioxide 17 mmol/L (22-29); Chloride 111 mmol/L (96-108); Creatinine Clr Calc Pharmacy 13.4; Estimated Glomerular Filt Rate 10; Potassium 6.5 mmol/L (3.3-5.1); Sodium 141 mmol/L (135-145)
[2022-01-12] MEDS: Sodium Zirconium Cyclosilicate 10 GM POWD.PACK PO ×3 (11:07→18:35)
[2022-01-12 11:24] VITALS: BP 149/63; PULSE 62; RESP 12; TEMP 35.9; O2SAT 98
[2022-01-12 11:34] LABS: Glucose, Whole Blood 149 mg/dL (60-115)
--- NOTE | 2022-01-12 11:39 | P.CONNP_ITS ---
History of Present Illness Reason for Consult Consult date: 01/12/22 Reason for consult: hyperkalemia Chief Complaint Chief complaint: SLIDE OOB,LEG/NECK/HEAD PAIN,+CCOLLAR History of Present Illness Narrative: 76-year-old female patient with past medical history significant for hypertension, hyperlipidemia, diabetes mellitus on insulin, coronary artery disease, chronic bilateral leg weakness on motorized chair, history of cervical spine surgery, history of anxiety depression, chronic pain syndrome, history of chronic kidney disease with history of bilateral hydronephrosis / hydroureter and distended bladder recently discharged from [facility] on October 14 after being treated for obstructive uropathy was discharged home on indwelling Rodriguez catheter however had a follow-up with Dr. Calhoun Rodriguez catheter was removed patient was given 1 week course of Bactrim on 12/27 for possible UTI, patient wa s brought into [facility] since she fell from motorized chair when she was trying to move from bed to chair? daughter denies any head injury, patient has been noted to be confused with thick speech in last few days, she has had few falls in last couple weeks, patient denies fever chills she denies chest pain, no shortness of breath no cough, no headache, no dizziness, no nausea no vomiting no abdominal pain no diarrhea patient denies urinary urgency or frequency, workup in the emergency room showed a normal CT head, C-spine x-ray showed partial laminectomy from C2 through C6 vertebra large osteophyte C2-C6 vertebra causing spinal canal stenosis no acute fractures, CT abdomen and pelvis showed bilateral hydroureteronephrosis improved from before, diffusely thick- walled urinary bladder, no radiodense urinary tract calculi labs showed potassium of 7.6, creatinine 5.2 with recent creatinine of 1.67 on November 23, UA grossly positive, patient? received IV fluid, IV antibiotic, Lokelma, DC 50 and insulin? potassium improved to 6.5 patient is now being admitted to [facility] due to acute on chronic renal failure, hyperkalemia,? and mental status change. She was given Bactrim as out patient Hyperkalemia was treated medically in ER Review of Systems Review of Systems General no headache, 5no dizziness no fever chills. CVS no chest pain, no palpitation. Respiratory no cough no sob. Gastrointestinal no nausea no vomiting, no abdominal pain Yes all other systems are reviewed and are negative Constitutional: Reports as per HPI Reports Abnormal speech present (slow) [facility] Past Medical History Medical History Anxiety and depression Arthritis Asthma Atrial flutter Chronic kidney disease, stage 3 Chronic pain Diabetes mellitus High cholesterol History of myocardial infarction HTN (hypertension) Hyperglycemia Lateral malleolar fracture Limited mobility Multiple falls Myocardial infarction On anticoagulant therapy On beta lanette at home Paroxysmal atrial fibrillation Type 2 diabetes mellitus with unspecified complications Urgency incontinence Family History Family History Father No problems noted. Mother Diabetes High blood pressure Stomach cancer Surgical History Surgical History H/O neck surgery History of cataract extraction History of cystoscopy History of heart artery stent Hx of cholecystectomy Hx of colonoscopy Social History Social History Household Members: None Housing: Apartment Are you a primary critical care cns to a significant other at home: No Do you presently have visiting nurse or other home services: Yes Alcohol intake: current Alcohol intake frequency: does not drink Patient Tobacco Use Status: Former Tobacco user Quit Date: 2005 Tobacco use type: Cigarette Years Smoked: 30-40 years Smoked in Last 30 Days: No Second Hand Smoke Exposure: No Use of substances other than those prescribed or required for medical reasons: No Currently Displaying Signs/Symptoms of Drug Intoxication Withdrawal: No Have you been hit, kicked, punched, or otherwise hurt by someone within the past year? If so, by whom?: No Do you feel safe in your current relationship?: No Is there a partner from a previous relationship who is making you feel unsafe now?: No Are you made to feel afraid or neglected: No Advance Directives: No Advance Directives Information Provided: Yes Do you have thoughts of harming others: None Do you have a plan to hurt others: No Plan Recently lost weight without trying: No Eating poorly because of decreased appetite: No Nutrition Risks: No Nutritional Risk Patient : No : No Poor oral hygiene: No service: No Current occupational status: disabled Meds Allergies Allergy/AdvReac Type Severity Reaction Status Date / Time atorvastatin [ATORVASTATIN] Allergy Intermediate SWELLING Verified 11/30/21 14:19 morphine [MORPHINE] Allergy Intermediate RASH Verified 11/30/21 14:19 zolpidem [From AMBIEN] AdvReac Intermediate SLEEP WALKS Verified 11/30/21 14:19 Active Medications: Current Medications Acetaminophen (Acetaminophen 325 Mg Tablet) 650 mg PO Q6H PRN PRN Reason: Pain, Mild (Pain Scale 1-3) Last Admin: 01/12/22 00:26 Dose: 650 mg Albuterol Sulfate (Albuterol Sulfate 90 Mcg 8 Gm Inhaler) 2 puff INHALE RQID PRN PRN Reason: Respiratory Distress Apixaban (Apixaban 5 Mg Tablet) 5 mg PO BID [facility] Last Admin: 01/12/22 08:43 Dose: 5 mg Dextrose (Dextrose 50 % 25 Gm/50 Ml Syringe) 25 gm IVPUSH Q15M PRN; Protocol PRN Reason: per Hypoglycemia Standing Ord. Fluoxetine HCl (Fluoxetine Hcl 20 Mg Capsule) 20 mg PO DAILY [facility] Last Admin: 01/12/22 08:43 Dose: 20 mg Glucose (Glucose Gel 15 Gm Gel..Gram.) 15 gm PO Q15M PRN; Protocol PRN Reason: per Hypoglycemia Standing Ord. Sodium Chloride (Ns) 1,000 mls @ 100 mls/hr IVCONT .Q10H [facility] Last Admin: 01/12/22 06:25 Dose: 100 mls/hr Ceftriaxone Sodium 1 gm/ (Sodium Chloride) 50 mls @ 100 mls/hr IV Q24H [facility] Insulin Human Lispro (Insulin Lispro 100 Unit/Ml 3 Ml Vial) 0 unit SUBCUT QIDACHS [facility]; Protocol Last Admin: 01/12/22 08:36 Dose: Not Given Metoprolol Tartrate (Metoprolol Tartrate 25 Mg Tablet) 25 mg PO BID [facility]; P rotocol Last Admin: 01/12/22 08:43 Dose: 25 mg Ondansetron HCl (Ondansetron Hcl 4 Mg/2 Ml Vial) 4 mg IVPUSH Q8H PRN PRN Reason: Nausea and Vomiting Pharmacy Consult (Consult Rx Perform Med Rec) 1 each MISCELLANE ONCE PRN PRN Reason: Consult order Quetiapine Fumarate (Quetiapine Fumarate 50 Mg Tablet) 150 mg PO BEDTIME PRN PRN Reason: Insomnia Sodium Chloride (0.9 % Sodium Chloride Flush 3 Ml Syringe) 3 ml IVFLUSH QSHIFT [facility] Last Admin: 01/12/22 08:44 Dose: 3 ml Home Medications Medication Instructions Recorded Confirmed Last Taken Type aspirin 81 mg capsule 81 mg PO DAILY 01/21/21 11/30/21 10/29/21 History lancing device with lancets kit #1 ea 03/24/21 11/30/21 Unknown History (Fabian Jonas Lancing Device kit) metoprolol tartrate 25 mg tablet 25 mg PO BID 07/15/21 01/11/22 11/03/21 08:15 History quetiapine 300 mg tablet 150 mg PO BEDTIME PRN Insomnia 07/15/21 01/11/22 10/11/21 History insulin glargine 100 unit/mL (3 15 unit subcut BEDTIME 10/11/21 01/11/22 01/10/22 History mL) subcutaneous pen (Lantus Solostar U-100 Insulin) lisinopril 20 1 tab PO DAILY 10/29/21 11/30/21 Unknown History mg-hydrochlorothiazide 25 mg tablet albuterol sulfate 90 mcg/actuation 2 puff inhalation QID PRN 11/30/21 01/11/22 Unknown History aerosol inhaler Respiratory Distress duloxetine 30 mg capsule,delayed 30 mg PO DAILY 11/30/21 11/30/21 Unknown History release ferrous sulfate 325 mg (65 mg 325 mg PO DAILY 11/30/21 11/30/21 Unknown History iron) tablet fluoxetine 20 mg capsule 20 mg PO DAILY 11/30/21 01/11/22 Unknown History gabapentin 400 mg capsule 400 mg PO TID 11/30/21 01/11/22 Unknown History ciprofloxacin 0.3 %-dexamethasone 4 drp otic (ears) BID 01/11/22 Unknown History 0.1 % ear drops,suspension gabapentin 600 mg tablet 1 tab PO BEDTIME 01/11/22 01/11/22 Unknown History sulfamethoxazole 800 1 tab PO BID 01/11/22 01/11/22 01/11/22 History mg-trimethoprim 160 mg tablet Physical Exam Vital Signs: Last Vital Signs Temp 96.7 F L 01/12/22 11:24 Pulse 62 01/12/22 11:24 Resp 12 01/12/22 11:24 BP 149/63 H 01/12/22 11:24 Pulse Ox 98 01/12/22 11:24 O2 Del Method 01/12/22 11:24 BMI result Body Mass Index 37.8 Const Other: General awake alert x3,no acute distress. HEENT pupil equal round reactive to light and accommodation anicteric sclera? Neck? no JVD. CVS? regular rate rhythm, Respiratory lungs clear to auscultation, no respiratory distress, no wheeze, no rhonchi. Gastrointestinal abdomen soft, obese, nontender, bowel sounds audible Extremities no? edema. Back no CVA tenderness Neuro nonfocal, thick speech, patient awake alert x3 answering questions appropriately, face symmetrical, decrease sensation and strength lower extremity chronic, no pronator drift Skin no rash Psych appropriate affect General: cooperative, healthy appearing, no acute distress, alert and awake Orientation/consciousness: patient oriented x3 Limitations: no limitations HEENT Head: Yes normal to inspection, Yes atraumatic, No Roman's sign and No raccoon eyes Ears: hearing grossly normal bilaterally General nose exam: Normal external nose present Face and sinus: Yes normal facial exam Throat: Yes posterior oropharynx normal, Yes tonsils normal and Yes uvula midline Eyes General: appearance normal, both eyes and all related structures Pupils: Equal, round and reactive pupils present EOM: EOMs intact bilaterally Neck Neck: Yes normal visual inspection and Yes no meningeal signs Chest Chest palpation & inspection: normal inspection of the chest, no crepitus and tenderness Resp Effort & Inspection: normal respiratory effort and no respiratory distress Auscultation: clear to auscultation bilaterally, no crackles, no rales, no rhonchi and no wheezes Cardio Rate: regular rate Heart sounds: S1 normal heart sound present and S2 normal heart sound present GI Inspection: Yes normal to inspection Palpation (GI): Soft to palpation, nontender, no guarding and not rigid General: Yes no CVA tenderness Back/Spine/Pelvis Back: no CVA tenderness Skin Rashes: no rashes Wounds: no wounds Neuro General: patient oriented x3, tone normal, moves all extremities, no meningeal signs and CN's II-XI intact bilaterally Cranial nerves: Yes Equal, round and reactive pupils present Speech: Abnormal speech present (slow) slurred Gait exam (Neuro): Normal gait present Motor exam (neuro): 5/5 motor strength present throughout, Pronator motor function not present and no tremor noted Romberg Test: Negative Extrem General: Yes normal to inspection Results Lab Results Result Diagrams: 01/11/22 11:08 01/13/22 06:02 Lab results: Chemistry 01/11/22 01/11/22 01/11/22 11:08 14:55 19:14 Sodium 138 137 140 Potassium 7.6 H* D 6.5 H* 5.3 H Carbon Dioxide 17 L 18 L 16 L BUN 76 H D 71 H 70 H Creatinine 5.20 H* 4.81 H* 4.61 H* Calcium 8.3 L 8.1 L 7.9 L 01/12/22 07:50 Sodium 141 Potassium 6.5 H* D Carbon Dioxide 17 L BUN 68 H Creatinine 4.21 H* Calcium 8.1 L Hematology 01/11/22 11:08 WBC 9.1 Hgb 10.8 L Plt Count 352 Urinalysis 01/11/22 12:37 Urine Color Dark Yellow Urine Appearance Turbid Urine pH 7.0 Ur Specific Hartley 1.020 Urine Protein 300 (3+) H Urine Glucose (UA) Negative Urine Ketones Negative Urine Blood Moderate (2+) H Urine Nitrite Negative Ur Leukocyte Esterase Large (3+) H Urine RBC 11-20 H Urine WBC >50 H Ur Squamous Epith Cells 6-10 Hyaline Casts 0-2 Assessment and Plan (1) Acute kidney injury superimposed on CKD: Status: Acute (2) Acute hyperkalemia: Status: Acute (3) HTN (hypertension): Status: Acute (4) Acute UTI: Status: Acute Plan LETHA superimposed on CKD Severe Hyperkalemia Hyperkalemia due to Use of Bactrim in a setting of severe CKD No EKG changes Treat medically with Lokelma Keep RODRIGUEZ Keep I > O Avoid bactrim Lisinopril No indication for dialysis unless K is resistant to medical treatment Mild Rhabdo - elevated CPK likely due to recurrent fall will treat with IV fluids and follow CK Procedures Date of Service Date of Service: 01/12/22
--- NOTE | 2022-01-12 13:02 | MHC.CM.PN ---
pt lives alone has heat treatment technician and an rn that visits thru her ins she has her own ride home
--- NOTE | 2022-01-12 13:16 | HO.PM.IMPN ---
Subjective Subjective Date of Service: 01/12/22 Interval History: patient feeling better this morning is speech is clear, denies chest pain, no lightheadedness, no dizziness, denies nausea, vomiting, or abdominal pain, no acute issues overnight, receiving IV fluid tolerating diet. Review of Systems Review of Systems: Yes all other systems are reviewed and are negative Physical Exam Vital Signs: Vital Signs: Last Vital Signs Temp 96.7 F L 01/12/22 11:24 Pulse 62 01/12/22 11:24 Resp 12 01/12/22 11:24 BP 149/63 H 01/12/22 11:24 Pulse Ox 98 01/12/22 11:24 O2 Del Method 01/12/22 11:24 BMI result Body Mass Index 37.8 Const: Other: General awake alert x3,no acute distress.? Neck? no JVD. CVS? regular rate rhythm, Respiratory lungs clear to auscultation, no respiratory distress, no wheeze, no rhonchi. Gastrointestinal abdomen soft, obese, nontender, bowel sounds audible Extremities no edema. Skin no rash neuro clear speech, cranial nerve 2-12 intact Psych appropriate affect Objective Data Active Medications Acetaminophen (Acetaminophen 325 Mg Tablet) 650 mg PO Q6H PRN PRN Reason: Pain, Mild (Pain Scale 1-3) Last Admin: 01/12/22 00:26 Dose: 650 mg Documented By: BALDEMAR Albuterol Sulfate (Albuterol Sulfate 90 Mcg 8 Gm Inhaler) 2 puff INHALE RQID PRN PRN Reason: Respiratory Distress Apixaban (Apixaban 5 Mg Tablet) 5 mg PO BID [facility] Last Admin: 01/12/22 08:43 Dose: 5 mg Documented By: JAYRO Dextrose (Dextrose 50 % 25 Gm/50 Ml Syringe) 25 gm IVPUSH Q15M PRN; Protocol PRN Reason: per Hypoglycemia Standing Ord. Fluoxetine HCl (Fluoxetine Hcl 20 Mg Capsule) 20 mg PO DAILY [facility] Last Admin: 01/12/22 08:43 Dose: 20 mg Documented By: JAYRO Glucose (Glucose Gel 15 Gm Gel..Gram.) 15 gm PO Q15M PRN; Protocol PRN Reason: per Hypoglycemia Standing Ord. Sodium Chloride (Ns) 1,000 mls @ 100 mls/hr IVCONT .Q10H [facility] Last Admin: 01/12/22 06:25 Dose: 100 mls/hr Documented By: BALDEMAR Ceftriaxone Sodium 1 gm/ (Sodium Chloride) 50 mls @ 100 mls/hr IV Q24H [facility] Insulin Human Lispro (Insulin Lispro 100 Unit/Ml 3 Ml Vial) 0 unit SUBCUT QIDACHS [facility]; Protocol Last Admin: 01/12/22 13:10 Dose: Not Given Documented By: JAYRO Non-Admin Reason: No Insulin Coverage Metoprolol Tartrate (Metoprolol Tartrate 25 Mg Tablet) 25 mg PO BID [facility]; Protocol Last Admin: 01/12/22 08:43 Dose: 25 mg Documented By: JAYRO Ondansetron HCl (Ondansetron Hcl 4 Mg/2 Ml Vial) 4 mg IVPUSH Q8H PRN PRN Reason: Nausea and Vomiting Pharmacy Consult (Consult Rx Perform Med Rec) 1 each MISCELLANE ONCE PRN PRN Reason: Consult order Quetiapine Fumarate (Quetiapine Fumarate 50 Mg Tablet) 150 mg PO BEDTIME PRN PRN Reason: Insomnia Sodium Chloride (0.9 % Sodium Chloride Flush 3 Ml Syringe) 3 ml IVFLUSH QSHIFT [facility] Last Admin: 01/12/22 08:44 Dose: 3 ml Documented By: JARYO Labs CBC & Chem 7: 01/11/22 11:08 01/12/22 07:50 Labs: Laboratory Results - last 24 hr 01/11/22 01/11/22 01/11/22 14:55 14:55 15:42 Anion Gap 16 Estim Creat Clear Calc 11.7 Estimated GFR 9 POC Glucose 131 H Random Glucose 146 H Calcium 8.1 L Total Creatine Kinase Troponin I High Sens 8.2 01/11/22 01/11/22 01/11/22 17:47 19:14 20:52 Anion Gap 17 Estim Creat Clear Calc 12.2 Estimated GFR 9 POC Glucose 233 H 171 H Random Glucose 202 H Calcium 7.9 L Total Creatine Kinase Troponin I High Sens 01/12/22 01/12/22 01/12/22 07:32 07:50 11:23 Anion Gap 20 Estim Creat Clear Calc 13.4 Estimated GFR 10 POC Glucose 141 H 149 H Random Glucose 154 H Calcium 8.1 L Total Creatine Kinase 2552 H Troponin I High Sens Microbiology Microbiology Results: Microbiology 01/11/22 00:00 Urine Culture - Preliminary Urine clean catch - Urine medina top Gram negative tanisha Assessment and Plan (1) Acute kidney injury superimposed on CKD: Status: Acute (2) Acute hyperkalemia: Status: Acute Plan 76-year-old female patient with a past medical history of hypertension, hyperlipidemia, diabetes, CAD, CKD, chronic bilateral leg weakness, history of cervical spine [id number]; urge incontinence, anxiety, depression, arthritis, chronic pain syndrome; presented to the hospital today? after mechanical fall, also with confusion and speech impairment of few days duration. ?acute toxic metabolic encephalopathy likely due do acute kidney injury, hyperkalemia and possible UTI resolved, speech normalized ?CT head negative ?treat infection and correct? electrolyte abnormality,all meds renally dose ?acute on chronic kidney disease stage 3 with hyperkalemia ?likely due to recent use of Bactrim,juan and due to obstructive uropathy ?continue IV fluid, Solis catheter, hold nephrotoxins including lisinopril ?potassium remains elevated 6.5 today,?repeat Lokelvt follow BMP case discussed Dr. Salgado he agrees with above management ?mechanical fall patient is wheelchair-bound ?acute UTI ?IV ceftriaxone day 2, urine culture growing Gram-negative rods ? elevated CPK likely due to recurrent fall CK bumped to 2552 cont. IV fluids and follow CK History of neuropathy: will resume Neurontin renally dosed?, patient is on high dose of Neurontin at home likely causing side effects with underlying renal disease History of diabetes on insulin? blood sugars stable, continue Insulin sliding scale and diabetic diet History of CAD: Continue home aspirin, zetia and beta-lanette History of paroxysmal AFib: Continue home Eliquis, chads vascular score of 5,rate controlled,continue metoprolol. History of depression:?will resume home meds Seroquel, and fluoxetein DVT prophylaxis:?Eliquis Code status: Full code Patient will need? continued inpatient stay for acute renal injury? requiring IV fluids and frequent lab monitoring. Quality Stroke Does the patient have a stroke diagnosis?: No VTE Prior VTE?: No VTE Risk Level:: Medical - moderate - high VTE Device Contraindication: Treatment Not Indicated VTE Drug Contraindication: N/A - Med Ordered
[2022-01-12] MEDS: cefTRIAXone sodium 1 GM in 0.9 % Sodium Chloride 50 ML IV (14:12)
[2022-01-12 15:42] VITALS: BP 136/80; PULSE 62; RESP 17; TEMP 36.5; O2SAT 99
[2022-01-12 16:32] LABS: Glucose, Whole Blood 104 mg/dL (60-115)
[2022-01-12 17:49] LABS: Anion Gap 15 (12-20); Blood Urea Nitrogen 61 mg/dL (9-16); Calcium 7.9 mg/dL (8.4-10.2); Carbon Dioxide 20 mmol/L (22-29); Chloride 111 mmol/L (96-108); Creatinine Clr Calc Pharmacy 16.2; Estimated Glomerular Filt Rate 13; Glucose Random 120 mg/dL (60-115); Potassium 6.4 mmol/L (3.3-5.1); Sodium 140 mmol/L (135-145)
[2022-01-12 20:00] VITALS: BP 173/82; PULSE 65; RESP 17; TEMP 36.3; O2SAT 96
[2022-01-12] MEDS: Gabapentin 300 MG CAPSULE PO (20:14)
[2022-01-12 20:45] LABS: Glucose, Whole Blood 124 mg/dL (60-115)
[2022-01-12 23:04] VITALS: BP 157/76; PULSE 63; RESP 17; TEMP 36.1; O2SAT 96
[2022-01-13 03:23] VITALS: BP 153/82; PULSE 70; RESP 20; TEMP 36.4; O2SAT 96
[2022-01-13] MEDS: 0.9 % Sodium Chloride 1,000 ML 100 ML IVCONT (04:47)
[2022-01-13 07:08] VITALS: BP 145/82; PULSE 66; RESP 17; TEMP 36.2; O2SAT 97
[2022-01-13 07:32] LABS: Anion Gap 13 (12-20); Blood Urea Nitrogen 57 mg/dL (9-16); Calcium 8.1 mg/dL (8.4-10.2); Carbon Dioxide 19 mmol/L (22-29); Chloride 113 mmol/L (96-108); Creatinine Clr Calc Pharmacy 20.7; Estimated Glomerular Filt Rate 17; Glucose Random 120 mg/dL (60-115); Potassium 5.7 mmol/L (3.3-5.1); Sodium 139 mmol/L (135-145)
[2022-01-13 07:37] LABS: Glucose, Whole Blood 112 mg/dL (60-115)
[2022-01-13] MEDS: Acetaminophen 325 MG TABLET 650 MG PO (08:05)
[2022-01-13] MEDS: FLUoxetine HCl 20 MG CAPSULE PO (08:05)
[2022-01-13] MEDS: 0.9 % Sodium Chloride Flush 3 ML SYRINGE IVFLUSH ×2 (08:07→21:21)
[2022-01-13] MEDS: Metoprolol Tartrate 25 MG TABLET PO ×2 (08:07→20:12)
[2022-01-13 10:49] VITALS: BP 140/82; PULSE 77; RESP 17; TEMP 36.6; O2SAT 97
[2022-01-13 11:12] LABS: Glucose, Whole Blood 127 mg/dL (60-115)
--- NOTE | 2022-01-13 11:17 | PM.PNNEP ---
Subjective Subjective Date of Service: 01/24/22 Interval history: Events noted Feels better Physical Exam Vital Signs: Vital Signs: Last Vital Signs Temp 97.8 F 01/13/22 10:49 Pulse 77 01/13/22 10:49 Resp 17 01/13/22 10:49 BP 140/82 H 01/13/22 10:49 Pulse Ox 97 01/13/22 10:49 O2 Del Method 01/13/22 10:49 BMI result Body Mass Index 37.8 Const: Other: General awake alert x3,no acute distress. HEENT pupil equal round reactive to light and accommodation anicteric sclera? Neck? no JVD. CVS? regular rate rhythm, Respiratory lungs clear to auscultation, no respiratory distress, no wheeze, no rhonchi. Gastrointestinal abdomen soft, obese, nontender, bowel sounds audible Extremities no? edema. Back no CVA tenderness Neuro nonfocal, thick speech, patient awake alert x3 answering questions appropriately, face symmetrical, decrease sensation and strength lower extremity chronic, no pronator drift Skin no rash Psych appropriate affect Objective Data Labs CBC & Chem 7: 01/14/22 05:53 01/15/22 06:14 Labs: Laboratory Results - last 24 hr 01/12/22 01/12/22 01/12/22 11:23 16:24 17:04 Sodium 140 Potassium 6.4 H* Chloride 111 H Carbon Dioxide 20 L Anion Gap 15 BUN 61 H Creatinine 3.48 H Estim Creat Clear Calc 16.2 Estimated GFR 13 POC Glucose 149 H 104 Random Glucose 120 H Calcium 7.9 L 01/12/22 01/13/22 01/13/22 20:33 06:02 07:12 Sodium 139 Potassium 5.7 H Chloride 113 H Carbon Dioxide 19 L Anion Gap 13 BUN 57 H Creatinine 2.73 H Estim Creat Clear Calc 20.7 Estimated GFR 17 POC Glucose 124 H 112 Random Glucose 120 H Calcium 8.1 L 01/13/22 11:00 Sodium Potassium Chloride Carbon Dioxide Anion Gap BUN Creatinine Estim Creat Clear Calc Estimated GFR POC Glucose 127 H Random Glucose Calcium Microbiology Microbiology Results: Microbiology 01/11/22 00:00 Urine clean catch - Urine [facility] top Urine Culture - Preliminary Citrobacter freundii Procedures Date of Service Date of Service: 01/13/22 Assessment & Plan Assessment and plan (1) Acute kidney injury superimposed on CKD: Status: Resolved (2) Acute hyperkalemia: Status: Acute (3) HTN (hypertension): Status: Inactive (4) Acute UTI: Status: Acute Plan LETHA superimposed on CKD Severe Hyperkalemia Hyperkalemia due to Use of Bactrim in a setting of severe CKD No EKG changes Treat medically with Lokelma Added another dose of Lokelma today Keep RODRIGUEZ Keep I > O Avoid bactrim Lisinopril No indication for dialysis unless K is resistant to medical treatment Mild Rhabdo - elevated CPK likely due to recurrent fall will treat with IV fluids and follow CK LETHA - resolving Cr 4.21 down to 2.73 Keep I > O Time Spent With Patient Time: Total time spent is greater than 50% in coordination of care (as documented) at patient's floor/unit and/or counseling patient: Progress Note: Quality Stroke Does the patient have a stroke diagnosis?: No
[2022-01-13] MEDS: Sodium Zirconium Cyclosilicate 10 GM POWD.PACK PO (11:47)
--- NOTE | 2022-01-13 11:53 | HO.PM.IMPN ---
Subjective Subjective Date of Service: 01/13/22 Interval History: Complaining of right leg pain since last night, otherwise offers no other complaints of chest pain shortness of breath, no fevers no chills during conversation noted to have spasm right lower leg patient screamed with pain but that went away within couple minutes, tolerating diet no nausea no vomiting no abdominal pain, no diarrhea. Review of Systems Review of Systems: Yes all other systems are reviewed and are negative Physical Exam Vital Signs: Vital Signs: Last Vital Signs Temp 97.8 F 01/13/22 10:49 Pulse 77 01/13/22 10:49 Resp 17 01/13/22 10:49 BP 140/82 H 01/13/22 10:49 Pulse Ox 97 01/13/22 10:49 O2 Del Method 01/13/22 10:49 BMI result Body Mass Index 37.8 Const: Other: General awake alert x3,no acute distress.? Neck? no JVD. CVS? regular rate rhythm, Respiratory lungs clear to auscultation, no respiratory distress, no wheeze, no rhonchi. Gastrointestinal abdomen soft, obese, nontender, bowel sounds audible Extremities no edema. Skin no rash neuro clear speech, cranial nerve 2-12 intact, lower extremities decreased strength bilaterally Psych appropriate affect Objective Data Active Medications Acetaminophen (Acetaminophen 325 Mg Tablet) 650 mg PO Q6H PRN PRN Reason: Pain, Mild (Pain Scale 1-3) Last Admin: 01/13/22 08:05 Dose: 650 mg Documented By: SOCORRO Albuterol Sulfate (Albuterol Sulfate 90 Mcg 8 Gm Inhaler) 2 puff INHALE RQID PRN PRN Reason: Respiratory Distress Apixaban (Apixaban 5 Mg Tablet) 5 mg PO BID [facility] Last Admin: 01/12/22 08:43 Dose: 5 mg Documented By: JAYRO Dextrose (Dextrose 50 % 25 Gm/50 Ml Syringe) 25 gm IVPUSH Q15M PRN; Protocol PRN Reason: per Hypoglycemia Standing Ord. Fluoxetine HCl (Fluoxetine Hcl 20 Mg Capsule) 20 mg PO DAILY [facility] Last Admin: 01/13/22 08:05 Dose: 20 mg Documented By: SOCORRO Gabapentin (Gabapentin 300 Mg Capsule) 300 mg PO BEDTIME [facility] Last Admin: 01/12/22 20:14 Dose: 300 mg Documented By: HO.KIRBYKA Glucose (Glucose Gel 15 Gm Gel..Gram.) 15 gm PO Q15M PRN; Protocol PRN Reason: per Hypoglycemia Standing Ord. Sodium Chloride (Ns) 1,000 mls @ 100 mls/hr IVCONT .Q10H [facility] Last Admin: 01/13/22 08:10 Dose: Not Given Documented By: SOCORRO Non-Admin Reason: IV Running Ceftriaxone Sodium 1 gm/ (Sodium Chloride) 50 mls @ 100 mls/hr IV Q24H [facility] Last Infusion: 01/12/22 14:42 Dose: 100 mls/hr Documented By: FOSTEKR Insulin Human Lispro (Insulin Lispro 100 Unit/Ml 3 Ml Vial) 0 unit SUBCUT QIDACHS [facility]; Protocol Last Admin: 01/13/22 11:30 Dose: Not Given Documented By: SOCORRO Non-Admin Reason: No Insulin Coverage Metoprolol Tartrate (Metoprolol Tartrate 25 Mg Tablet) 25 mg PO BID [facility]; Protocol Last Admin: 01/13/22 08:07 Dose: 25 mg Documented By: SOCORRO Ondansetron HCl (Ondansetron Hcl 4 Mg/2 Ml Vial) 4 mg IVPUSH Q8H PRN PRN Reason: Nausea and Vomiting Pharmacy Consult (Consult Rx Perform Med Rec) 1 each MISCELLANE ONCE PRN PRN Reason: Consult order Quetiapine Fumarate (Quetiapine Fumarate 50 Mg Tablet) 150 mg PO BEDTIME PRN PRN Reason: Insomnia Sodium Chloride (0.9 % Sodium Chloride Flush 3 Ml Syringe) 3 ml IVFLUSH QSHIFT [facility] Last Admin: 01/13/22 08:07 Dose: 3 ml Documented By: SOCORRO Labs CBC & Chem 7: 01/11/22 11:08 01/13/22 06:02 Labs: Laboratory Results - last 24 hr 01/12/22 01/12/22 01/12/22 16:24 17:04 20:33 Anion Gap 15 Estim Creat Clear Calc 16.2 Estimated GFR 13 POC Glucose 104 124 H Random Glucose 120 H Calcium 7.9 L 01/13/22 01/13/22 01/13/22 06:02 07:12 11:00 Anion Gap 13 Estim Creat Clear Calc 20.7 Estimated GFR 17 POC Glucose 112 127 H Random Glucose 120 H Calcium 8.1 L Microbiology Microbiology Results: Microbiology 01/11/22 00:00 Urine Culture - Preliminary Urine clean catch - Urine [facility] top Citrobacter freundii Assessment and Plan (1) Acute kidney injury superimposed on CKD: Status: Acute (2) Acute hyperkalemia: Status: Acute Plan 76-year-old female patient with a past medical history of hypertension, hyperlipidemia, diabetes, CAD, CKD, chronic bilateral leg weakness, history of cervical spine [id number]; urge incontinence, anxiety, depression, arthritis, chronic pain syndrome; presented to the hospital today? after mechanical fall, also with confusion and speech impairment of few days duration. ?acute toxic metabolic encephalopathy likely due do acute kidney injury, hyperkalemia and possible UTI resolved, speech normalized ?CT head negative. Or ?treat infection and correct? electrolyte abnormality,all meds renally dose ?acute on chronic kidney disease stage 3 with hyperkalemia ?likely due to recent use of Bactrim,juan and due to obstructive uropathy ?continue IV fluid, Solis catheter, hold nephrotoxins including lisinopril /hctz ? Patient not taking it at home. ?potassium improved to 5.7 today,?repeat Lokelma 10 mg x 1 follow BMP case discussed Dr. Salgado he agrees with above management ?mechanical fall patient is wheelchair-bound ?acute UTI ?IV ceftriaxone day 3, urine culture grew Citrobacter greater than 100,000 follow sensitivities elevated CPK likely due to recurrent [place] 25[place] cont. IV fluids and follow CK History of neuropathy: Placed on Neurontin renally dosed?, patient is on high dose of Neurontin at home likely causing side effects with underlying renal disease History of diabetes on insulin? blood sugars stable, continue Insulin sliding scale and diabetic diet History of CAD: Continue beta-lanette, patient has script of zetia and aspirin but not taking it at home. History of paroxysmal AFib: Continue home Eliquis, chads vascular score of 5,rate controlled,continue metoprolol. History of depression:?cont. home meds Seroquel prn, and fluoxetine DVT prophylaxis:?Eliquis Code status: Full code Patient will need? continued inpatient stay for acute renal injury? requiring IV fluids and frequent lab monitoring. Quality Stroke Does the patient have a stroke diagnosis?: No VTE Prior VTE?: No VTE Risk Level:: Medical - moderate - high VTE Device Contraindication: Treatment Not Indicated VTE Drug Contraindication: N/A - Med Ordered
[2022-01-13] MEDS: cefTRIAXone sodium 1 GM in 0.9 % Sodium Chloride 50 ML IV (14:18)
[2022-01-13 15:30] VITALS: BP 177/79; PULSE 60; RESP 17; TEMP 36.5; O2SAT 98
[2022-01-13 15:40] LABS: Glucose, Whole Blood 119 mg/dL (60-115)
[2022-01-13] MEDS: oxyCODONE HCl Immed Release 5 MG TABLET PO (15:53)
[2022-01-13 19:49] VITALS: BP 139/89; PULSE 66; RESP 17; TEMP 36.8; O2SAT 94
[2022-01-13 19:55] LABS: Glucose, Whole Blood 151 mg/dL (60-115)
[2022-01-13] MEDS: Gabapentin 300 MG CAPSULE PO (20:12)
[2022-01-13] MEDS: Insulin Lispro 100 UNIT/ML 3 ML VIAL SUBCUT (20:13)
[2022-01-13] MEDS: Nystatin Powder 15 GM BOTTLE 1 APPL TOPICAL (20:17)
[2022-01-13 23:34] VITALS: BP 198/84; PULSE 58; RESP 20; TEMP 36.1; O2SAT 99
[2022-01-14 03:12] VITALS: BP 154/78; PULSE 63; RESP 20; TEMP 36.2; O2SAT 96
[2022-01-14 06:22] LABS: Hematocrit 35.3 % (37.0-47.0); Hemoglobin 10.5 g/dl (12.0-16.0); Mean Corpuscular HGB Conc 29.7 g/dl (31.0-35.0); Mean Corpuscular Hemoglobin 28.3 pg (27.0-33.0); Mean Corpuscular Volume 95.1 fL (80.0-98.0); Mean Platelet Volume 9.9 fL (9.4-12.3); Platelet Count 344 X10*3/uL (160-400); Red Blood Count 3.71 X10*6/uL (4.20-5.50); Red Cell Distribution Width 15.5 % (11.0-16.0); White Blood Count 6.4 X10*3/uL (4.8-10.8)
[2022-01-14 06:37] LABS: Anion Gap 12 (12-20); Blood Urea Nitrogen 43 mg/dL (9-16); Calcium 8.2 mg/dL (8.4-10.2); Carbon Dioxide 20 mmol/L (22-29); Chloride 111 mmol/L (96-108); Creatinine Clr Calc Pharmacy 27.7; Estimated Glomerular Filt Rate 24; Glucose Random 112 mg/dL (60-115); Potassium 5.5 mmol/L (3.3-5.1); Sodium 137 mmol/L (135-145)
[2022-01-14 06:58] VITALS: BP 142/74; PULSE 66; RESP 17; TEMP 36.8; O2SAT 94
[2022-01-14 07:31] LABS: Glucose, Whole Blood 113 mg/dL (60-115)
[2022-01-14] MEDS: 0.9 % Sodium Chloride Flush 3 ML SYRINGE IVFLUSH ×3 (09:51→22:06)
[2022-01-14] MEDS: Sodium Zirconium Cyclosilicate 10 GM POWD.PACK PO (09:51)
[2022-01-14] MEDS: FLUoxetine HCl 20 MG CAPSULE PO (09:51)
[2022-01-14] MEDS: Acetaminophen 325 MG TABLET 650 MG PO (09:54)
[2022-01-14] MEDS: amLODIPine Besylate 5 MG TABLET PO (09:55)
[2022-01-14] MEDS: Metoprolol Tartrate 25 MG TABLET PO ×2 (09:55→22:00)
[2022-01-14] MEDS: Nystatin Powder 15 GM BOTTLE 1 APPL TOPICAL ×2 (10:02→22:08)
[2022-01-14 11:11] VITALS: BP 138/78; PULSE 75; RESP 16; TEMP 36.7; O2SAT 96
[2022-01-14 11:25] LABS: Glucose, Whole Blood 128 mg/dL (60-115)
--- NOTE | 2022-01-14 12:48 | P.PNIM_ITS ---
Subjective Subjective Date of Service: 01/14/22 Interval History: complaining of bilateral shoulder pain and stiffness, also complaining of right leg pain, all symptoms after her fall, no confusion, denies fever chills no other acute issues, tolerating by mouth no nausea no vomiting no abdominal pain, no diarrhea. Review of Systems respiratory no cough, no shortness of breath CVS no chest pain, no palpitation Skin right lower extremity bruises Review of Systems: Yes all other systems are reviewed and are negative Physical Exam Vital Signs: Vital Signs: Last Vital Signs Temp 98.0 F 01/14/22 11:11 Pulse 75 01/14/22 11:11 Resp 16 01/14/22 11:11 BP 138/78 01/14/22 11:11 Pulse Ox 96 01/14/22 11:11 O2 Del Method 01/14/22 11:11 BMI result Body Mass Index 37.8 Const: Other: General awake alert x3,no acute distress.? Neck? no JVD. CVS? regular rate rhythm, Respiratory lungs clear to auscultation, no respiratory distress, no wheeze, no rhonchi. Gastrointestinal abdomen soft, obese, nontender, bowel sounds audible Extremities no? edema/ right lower extremity ecchymosis noticeable today. Back no CVA tenderness Neuro nonfocal, speech clear both shoulders good range of motion but limited due to pain Psych appropriate affect Objective Data Active Medications Acetaminophen (Acetaminophen 325 Mg Tablet) 650 mg PO Q6H PRN PRN Reason: Pain, Mild (Pain Scale 1-3) Last Admin: 01/14/22 09:54 Dose: 650 mg Documented By: JAYRO Albuterol Sulfate (Albuterol Sulfate 90 Mcg 8 Gm Inhaler) 2 puff INHALE RQID PRN PRN Reason: Respiratory Distress Amlodipine Besylate (Amlodipine Besylate 5 Mg Tablet) 5 mg PO DAILY [facility]; Protocol Last Admin: 01/14/22 09:55 Dose: 5 mg Documented By: JAYRO Apixaban (Apixaban 5 Mg Tablet) 5 mg PO BID [facility] Last Admin: 01/12/22 08:43 Dose: 5 mg Documented By: JAYRO Dextrose (Dextrose 50 % 25 Gm/50 Ml Syringe) 25 gm IVPUSH Q15M PRN; Protocol PRN Reason: per Hypoglycemia Standing Ord. Fluoxetine HCl (Fluoxetine Hcl 20 Mg Capsule) 20 mg PO DAILY [facility] Last Admin: 01/14/22 09:51 Dose: 20 mg Documented By: JAYRO Gabapentin (Gabapentin 300 Mg Capsule) 300 mg PO BEDTIME [facility] Last Admin: 01/13/22 20:12 Dose: 300 mg Documented By: PAVITHRA Glucose (Glucose Gel 15 Gm Gel..Gram.) 15 gm PO Q15M PRN; Protocol PRN Reason: per Hypoglycemia Standing Ord. Ceftriaxone Sodium 1 gm/ (Sodium Chloride) 50 mls @ 100 mls/hr IV Q24H [facility] Last Infusion: 01/13/22 15:08 Dose: 0 mls/hr Documented By: SOCORRO Insulin Human Lispro (Insulin Lispro 100 Unit/Ml 3 Ml Vial) 0 unit SUBCUT QIDACHS [facility]; Protocol Last Admin: 01/14/22 11:29 Dose: Not Given Documented By: JAYRO Non-Admin Reason: No Insulin Coverage Metoprolol Tartrate (Metoprolol Tartrate 25 Mg Tablet) 25 mg PO BID [facility]; P rotocol Last Admin: 01/14/22 09:55 Dose: 25 mg Documented By: JAYRO Nystatin (Nystatin Powder 15 Gm Bottle) 1 appl TOPICAL BID [facility]; Protocol Last Admin: 01/14/22 10:02 Dose: 1 appl Documented By: JAYRO Ondansetron HCl (Ondansetron Hcl 4 Mg/2 Ml Vial) 4 mg IVPUSH Q8H PRN PRN Reason: Nausea and Vomiting Oxycodone HCl (Oxycodone Hcl Immed Release 5 Mg Tablet) 5 mg PO Q6H PRN PRN Reason: Pain, Severe (Pain Scale 7-10) Last Admin: 01/13/22 15:53 Dose: 5 mg Documented By: SOCORRO Pharmacy Consult (Consult Rx Perform Med Rec) 1 each MISCELLANE ONCE PRN PRN Reason: Consult order Quetiapine Fumarate (Quetiapine Fumarate 50 Mg Tablet) 150 mg PO BEDTIME PRN PRN Reason: Insomnia Sodium Chloride (0.9 % Sodium Chloride Flush 3 Ml Syringe) 3 ml IVFLUSH QSHIFT [facility] Last Admin: 01/14/22 09:51 Dose: 3 ml Documented By: JAYRO Labs CBC & Chem 7: 01/14/22 05:53 01/14/22 05:53 Labs: Laboratory Results - last 24 hr 01/13/22 01/13/22 01/14/22 15:36 19:52 05:53 MCV 95.1 MCH 28.3 MCHC 29.7 L RDW 15.5 Plt Count 344 MPV 9.9 Absolute Nucleated RBC 0.000 Nucleated RBC % (auto) 0.0 Anion Gap Estim Creat Clear Calc Estimated GFR POC Glucose 119 H 151 H Random Glucose Calcium 01/14/22 01/14/22 01/14/22 05:53 07:06 11:06 MCV MCH MCHC RDW Plt Count MPV Absolute Nucleated RBC Nucleated RBC % (auto) Anion Gap 12 Estim Creat Clear Calc 27.7 Estimated GFR 24 POC Glucose 113 128 H Random Glucose 112 Calcium 8.2 L Microbiology Microbiology Results: Microbiology 01/11/22 00:00 Urine Culture - Preliminary Urine clean catch - Urine [facility] top Citrobacter freundii Assessment and Plan (1) Acute kidney injury superimposed on CKD: Status: Acute (2) Acute hyperkalemia: Status: Acute Plan 76-year-old female patient with a past medical history of hypertension, hyperlipidemia, diabetes, CAD, CKD, chronic bilateral leg weakness, history of cervical spine [id number]; urge incontinence, anxiety, depression, arthritis, chronic pain syndrome; presented to the hospital today? after mechanical fall, also with confusion and speech impairment of few days duration. ?acute toxic metabolic encephalopathy likely due do acute kidney injury, hyperkalemia and possible UTI resolved, speech normalized ?CT head negative. ?treat infection and correct? electrolyte abnormality,all meds renally dose ?acute on chronic kidney disease stage 3 with hyperkalemia ?likely due to recent use of Bactrim,juan and due to obstructive uropathy ?on IV fluid, Solis catheter, hold nephrotoxins including lisinopril /hctz ? Patient not taking it at home. ?potassium improved to 5.5 today,?repeat Lokelma 10 mg x 1 follow BMP, creati nine improved to 2 close to baseline, will DC IV fluid case discussed Dr. Salgado he agrees with above management recommend outpatient follow-up with Urology ?mechanical fall patient is wheelchair-bound ?acute UTI ?IV ceftriaxone day 4, urine culture grew Citrobacter greater than 100,000 switch to by mouth Ceftin total 7 days since has Solis catheter elevated CPK likely due [place] [address] cont. IV fluids and follow CK History of neuropathy: Placed on Neurontin renally dosed?, patient is on high dose of Neurontin at home likely causing side effects with underlying renal dise ase History of diabetes on insulin? blood sugars stable, continue Insulin sliding scale and diabetic diet History of CAD: Continue beta-lanette, patient has script of zetia and aspirin but not taking it at home. History of paroxysmal AFib: Continue home Eliquis, chads vascular score of 5,rate controlled,continue metoprolol. hypertension added Norvasc since lisinopril was held blood pressure improved History of depression:?cont. home meds Seroquel prn, and fluoxetine DVT prophylaxis:?Eliquis Code status: Full code Patient will need? continued inpatient stay for acute renal injury? requiring IV fluids and frequent lab monitoring. Quality Stroke Does the patient have a stroke diagnosis?: No VTE Prior VTE?: No VTE Risk Level:: Medical - moderate - high VTE Device Contraindication: Treatment Not Indicated VTE Drug Contraindication: N/A - Med Ordered
--- NOTE | 2022-01-14 14:31 | P.CDIC_ITS ---
CDI Concurrent Query Documentation Clarification: PHYSICIAN'S DOCUMENTATION REQUEST Date of Query: 01/14/22 1431 Patient Name: Shewta Woodard Admit Date: 01/11/22 Dear Doctor, A review of the medical record indicates additional documentation may be needed. Please review below and update the documentation accordingly. Clinical Indicators: Is there a diagnosis that correlates with the findings below: Risk Factors/Clinical Indicators/Treatments BMI: 37.8 HEIGHT: 5ft 4in WEIGHT: 99.79kg Other indicators: - abdomen obese per provider notes -PMH: hyperlipidemia & HTN If possible, please provide an associated diagnosis related to the abnormal BMI, such as: BMI: * Obesity * Due to excess calories * Drug induced * Due to other cause * Severe or Morbid Obesity * With alveolar hypoventilation * Without alveolar hypoventilation Or: * BMI is not significant * Other (please specify) * Unable to determine Use of terms such as suspected, likely, concern for, or probable (associated with a specific diagnosis that is being evaluated, monitored, or treated as if it exists) are acceptable and can be coded in the inpatient setting, when documented at the time of discharge. Thank you, Miranda Gutierres MS, RN, CCRN Extension: [phone] Please use your independent medical judgment in providing your response. THIS QUERY IS PART OF THE PERMANENT MEDICAL RECORD Provider Response: Other Other Diagnosis: see note
--- NOTE | 2022-01-14 15:15 | MHC.CM.PN ---
per rounds pt not ready for dc will be here over the weekend
[2022-01-14 15:46] VITALS: BP 138/62; PULSE 57; RESP 18; TEMP 36.7; O2SAT 99
[2022-01-14 15:55] LABS: Glucose, Whole Blood 154 mg/dL (60-115)
--- NOTE | 2022-01-14 15:59 | PM.PNNEP ---
Subjective Subjective Date of Service: 02/04/22 Interval history: complaining of bilateral shoulder pain and stiffness, also complaining of right leg pain, all symptoms after her fall, no confusion, denies fever chills no other acute issues, tolerating by mouth no nausea no vomiting no abdominal pain, no diarrhea. Physical Exam Vital Signs: Vital Signs: Last Vital Signs Temp 98.0 F 01/14/22 15:46 Pulse 57 01/14/22 15:46 Resp 18 01/14/22 15:46 BP 138/62 01/14/22 15:46 Pulse Ox 99 01/14/22 15:46 O2 Del Method 01/14/22 15:46 BMI result Body Mass Index 37.8 Objective Data Labs CBC & Chem 7: 01/14/22 05:53 01/15/22 06:14 Labs: Laboratory Results - last 24 hr 01/13/22 01/14/22 01/14/22 19:52 05:53 05:53 WBC 6.4 RBC 3.71 L Hgb 10.5 L Hct 35.3 L MCV 95.1 MCH 28.3 MCHC 29.7 L RDW 15.5 Plt Count 344 MPV 9.9 Absolute Nucleated RBC 0.000 Nucleated RBC % (auto) 0.0 Sodium 137 Potassium 5.5 H Chloride 111 H Carbon Dioxide 20 L Anion Gap 12 BUN 43 H Creatinine 2.04 H Estim Creat Clear Calc 27.7 Estimated GFR 24 POC Glucose 151 H Random Glucose 112 Calcium 8.2 L 01/14/22 01/14/22 01/14/22 07:06 11:06 15:51 WBC RBC Hgb Hct MCV MCH MCHC RDW Plt Count MPV Absolute Nucleated RBC Nucleated RBC % (auto) Sodium Potassium Chloride Carbon Dioxide Anion Gap BUN Creatinine Estim Creat Clear Calc Estimated GFR POC Glucose 113 128 H 154 H Random Glucose Calcium Microbiology Microbiology Results: Microbiology 01/11/22 00:00 Urine clean catch - Urine [facility] top Urine Culture - Final Citrobacter freundii Procedures Date of Service Date of Service: 02/04/22 Assessment & Plan Assessment and plan (1) Acute kidney injury superimposed on CKD: Status: Resolved (2) Acute hyperkalemia: Status: Acute Plan LETHA superimposed on CKD Severe Hyperkalemia Hyperkalemia due to Use of Bactrim in a setting of severe CKD No EKG changes Treat medically with Lokelma Keep I > O Avoid bactrim Lisinopril ? Mild Rhabdo - elevated CPK LETHA - resolving Low K diet CAn be d/c'd I will arrange for out pt follow up Keep I > O Time Spent With Patient Time: Total time spent is greater than 50% in coordination of care (as documented) at patient's floor/unit and/or counseling patient: Progress Note: Quality Stroke Does the patient have a stroke diagnosis?: No
[2022-01-14] MEDS: Insulin Lispro 100 UNIT/ML 3 ML VIAL SUBCUT (16:25)
[2022-01-14 19:05] VITALS: BP 172/80; PULSE 62; RESP 14; TEMP 36.8; O2SAT 96
[2022-01-14 19:30] LABS: Glucose, Whole Blood 136 mg/dL (60-115)
[2022-01-14] MEDS: Gabapentin 300 MG CAPSULE PO (22:00)
[2022-01-14] MEDS: Apixaban 5 MG TABLET PO (22:00)
[2022-01-14 23:48] VITALS: BP 173/75; PULSE 63; RESP 14; TEMP 36.9; O2SAT 97
[2022-01-15] MEDS: Acetaminophen 325 MG TABLET 650 MG PO (02:52)
[2022-01-15 03:04] VITALS: BP 160/77; PULSE 58; RESP 16; TEMP 36.8; O2SAT 95
[2022-01-15 07:26] LABS: Glucose, Whole Blood 153 mg/dL (60-115)
[2022-01-15 07:45] VITALS: PULSE 64; RESP 20; TEMP 36.5
[2022-01-15 07:51] LABS: Anion Gap 11 (12-20); Blood Urea Nitrogen 34 mg/dL (9-16); Calcium 8.7 mg/dL (8.4-10.2); Carbon Dioxide 22 mmol/L (22-29); Chloride 111 mmol/L (96-108); Creatinine Clr Calc Pharmacy 34.5; Estimated Glomerular Filt Rate 31; Glucose Random 125 mg/dL (60-115); Potassium 5.3 mmol/L (3.3-5.1); Sodium 139 mmol/L (135-145)
[2022-01-15] MEDS: 0.9 % Sodium Chloride Flush 3 ML SYRINGE IVFLUSH (09:07)
[2022-01-15] MEDS: Insulin Lispro 100 UNIT/ML 3 ML VIAL SUBCUT (09:07)
[2022-01-15] MEDS: FLUoxetine HCl 20 MG CAPSULE PO (09:08)
[2022-01-15] MEDS: Apixaban 5 MG TABLET PO (09:08)
[2022-01-15] MEDS: amLODIPine Besylate 5 MG TABLET PO (09:08)
[2022-01-15] MEDS: Metoprolol Tartrate 25 MG TABLET PO (09:08)
[2022-01-15] MEDS: Sodium Zirconium Cyclosilicate 10 GM POWD.PACK PO (09:08)
[2022-01-15] MEDS: Nystatin Powder 15 GM BOTTLE 1 APPL TOPICAL (09:09)
[2022-01-15 11:09] LABS: Glucose, Whole Blood 133 mg/dL (60-115)
[2022-01-15 12:00] VITALS: PULSE 60; RESP 16; TEMP 36.7; O2SAT 98
--- NOTE | 2022-01-15 14:02 | PM.PNNEP ---
Subjective Subjective Date of Service: 01/15/22 Interval history: No major issues, tolerating by mouth no nausea no vomiting no abdominal pain, no diarrha. Physical Exam Vital Signs: Vital Signs: Last Vital Signs Temp 98.1 F 01/15/22 12:00 Pulse 60 01/15/22 12:00 Resp 16 01/15/22 12:00 BP 160/77 H 01/15/22 03:04 Pulse Ox 98 01/15/22 12:00 O2 Del Method 01/15/22 12:00 BMI result Body Mass Index 37.8 Const: General: cooperative and no acute distress HEENT: Head: Yes normal to inspection Mouth: Normal oral and palatal mucosa present Eyes: General: appearance normal, both eyes and all related structures Pupils: Equal, round and reactive pupils present Neck: Neck: Yes full ROM Resp: Effort & Inspection: normal respiratory effort Cardio: Jugular venous distension: no JVD Heart sounds: S1 normal heart sound present and S2 normal heart sound present GI: Inspection: Yes distended Palpation (GI): Soft to palpation Auscultation: normal bowel sounds Neuro: Cranial nerves: Yes Equal, round and reactive pupils present Extrem: General: Yes normal to inspection Objective Data Labs CBC & Chem 7: 01/14/22 05:53 01/15/22 06:14 Labs: Laboratory Results - last 24 hr 01/14/22 01/14/22 01/15/22 15:51 19:13 06:14 Sodium 139 Potassium 5.3 H Chloride 111 H Carbon Dioxide 22 Anion Gap 11 L BUN 34 H Creatinine 1.64 H Estim Creat Clear Calc 34.5 Estimated GFR 31 POC Glucose 154 H 136 H Random Glucose 125 H Calcium 8.7 D Total Creatine Kinase 673 H 01/15/22 01/15/22 07:16 10:56 Sodium Potassium Chloride Carbon Dioxide Anion Gap BUN Creatinine Estim Creat Clear Calc Estimated GFR POC Glucose 153 H 133 H Random Glucose Calcium Total Creatine Kinase Microbiology Microbiology Results: Microbiology 01/11/22 00:00 Urine clean catch - Urine [facility] top Urine Culture - Final Citrobacter freundii Procedures Date of Service Date of Service: 01/15/22 Assessment & Plan Assessment and plan (1) Acute kidney injury superimposed on CKD: Status: Acute (2) Acute hyperkalemia: Status: Acute Plan LETHA superimposed on CKD Severe Hyperkalemia Hyperkalemia due to Use of Bactrim in a setting of severe CKD No EKG changes Treat medically with Lokelma Keep I > O Avoid bactrim Lisinopril ? Mild Rhabdo - elevated CPK LETHA - resolving Low K diet CAn be d/c'd I will arrange for out pt follow up Keep I > O Time Spent With Patient Time: Total time spent is greater than 50% in coordination of care (as documented) at patient's floor/unit and/or counseling patient: Progress Note: Quality Stroke Does the patient have a stroke diagnosis?: No
--- NOTE | 2022-01-15 14:32 | P.DS_ITS ---
DS: Providers Provider Date of Service: 01/16/22 Date of admission: 01/11/22 17:28 Primary care physician: Janet Phelan MD Consults: 01/11/22 17:34 Consult to Nephrology Routine Consulting Provider: Wesley Contreras Reason for consultation: fozia/hyperkalemia Has provider been notified: No DS: Diagnosis Discharge Diagnosis (1) Acute kidney injury superimposed on CKD: Status: Acute (2) Acute hyperkalemia: Status: Acute DS: Summary Hospital Course Hospital Course: Date of Service: 01/11/22 Attending physician on admission: Kimberly Luu Chief Complaint:? fall/ confusion 76-year-old female patient with past medical history significant for hypertension, hyperlipidemia, diabetes mellitus on insulin, coronary artery disease, chronic bilateral leg weakness on motorized chair, history of cervical spine surgery, history of anxiety depression, chronic pain syndrome, history of chronic kidney disease with history of bilateral hydronephrosis / hydroureter and distended bladder recently discharged from [facility] on October 14 after being treated for obstructive uropathy was discharged home on indwelling Belcher catheter however had a follow-up with Dr. Calhoun Belcher catheter was removed patient was given 1 week course of Bactrim on 12/27 for possible UTI, patient was brought into [facility] since she fell from motorized chair when she was trying to move from bed to chair? daughter denies any head injury, patient has been noted to be confused with thick speech in last few days, she has had few falls in last couple weeks, patient denies fever chills she denies chest pain, no shortness of breath no cough, no headache, no dizziness, no nausea no vomiting no abdominal pain no diarrhea patient denies urinary urgency or frequency, workup in the emergency room showed a normal CT head, C-spine x-ray showed partial laminectomy from C2 through C6 vertebra large osteophyte C2-C6 vertebra causing spinal canal stenosis no acute fractures, CT abdomen and pelvis showed bilateral hydroureteronephrosis improved from before, diffusely thick- walled urinary bladder, no radiodense urinary tract calculi labs showed potassium of 7.6, creatinine 5.2 with recent creatinine of 1.67 on November 23, UA grossly positive, patient? received IV fluid, IV antibiotic, Lokelma, DC 50 and insulin? potassium improved to 6.5 patient is now being admitted to [facility] due to acute on chronic renal failure, hyperkalemia,? and mental status change. hospital course 76-year-old female patient with a past medical history of hypertension, hyp erlipidemia, diabetes, CAD, CKD, chronic bilateral leg weakness, history of cervical spine [id number]; urge incontinence, anxiety, depression, arthritis, chronic pain syndrome; presented to the hospital today? after mechanical fall, also with confusion and speech impairment of few days duration. ?acute toxic metabolic encephalopathy likely due do acute kidney injury, hyperkalemia and possible UTI,?resolved, speech normalized,?CT head negative.? ?acute on chronic kidney disease stage 3 with hyperkalemia ?likely due to recent use of Bactrim,juan and due to obstructive uropathy belcher cath recently removed, patient placed on Belcher catheter treated with IV fluids, lisinopril and hydrochlorothiazide were held, renal function improved to baseline, in regard to hyperkalemia patient treated with frequent dosages of Lokelma potassium down to 5.3 patient has been recommended low-potassium diet, lisinopril discontinued recommend outpatient follow-up with Nephrology repeat BMP next week. ?mechanical fall patient is wheelchair-bound, will arrange for home VNA and PT services to assist with [id number] transfers. ?acute UTI ?urine culture grew Citrobacter greater than 100,000? resistant to Ceftin therefore will discharge patient home on Levaquin 250 mg by mouth daily for 7 days. elevated CPK/ rhabdo likely due to recurrent falls, patient treated with IV fluid CPK improved. History of neuropathy:? Placed on Neurontin renally dosed?, patient is on high dose of Neurontin at home likely causing side effects with underlying renal disease recommend to review meds with PCP. History of diabetes on insulin? blood sugars stable, continue Insulin sliding scale and diabetic diet recommend to continue low-dose Lantus and Humalog at home. History of CAD: Continue? beta-lanette, patient has script of zetia and aspirin but ? not taking it at home, spoke with daughter she is not aware of patient's home meds. History of paroxysmal AFib: Continue home Eliquis, chads vascular score of 5,rate controlled,continue metoprolol. hypertension added Norvasc since lisinopril was held blood pressure improved, continue metoprolol and hydrochlorothiazide History of depression:?cont. home meds Seroquel prn, and fluoxetine Time Spent with Patient Time attestation: Total time spent providing and/or coordinating discharge services: Discharge coordination time: Greater than 30 minutes Quality: Safe Use of Opioids Does Pt have an Active Cancer Diagnosis on the Problem List?: No Quality: Stroke Does the patient have a stroke diagnosis?: No Physical Exam Vital Signs: Vital Signs: Last Vital Signs Temp 98.1 F 01/15/22 12:00 Pulse 60 01/15/22 12:00 Resp 16 01/15/22 12:00 BP 160/77 H 01/15/22 03:04 Pulse Ox 98 01/15/22 12:00 O2 Del Method 01/15/22 12:00 BMI result Body Mass Index 37.8 Const: Other: General awake alert x3,no acute distress.? Neck? no JVD. CVS? regular rate rhythm, Respiratory lungs clear to auscultation, no respiratory distress, no wheeze, no rhonchi. Gastrointestinal abdomen soft, obese, nontender, bowel sounds audible Extremities no? edema/ right lower extremity? ecchymosis mid leg and thigh Back no CVA tenderness Neuro nonfocal, speech clear both shoulders good range of motion but limited due to pain Psych appropriate affect DS: Data Data Completed and Pending Completed studies during hospitalization [Text1]: Procedures Insertion of Infusion Device into Right Basilic Vein, Percutaneous Approach (01/21/21) Labs on day of discharge: Laboratory Results - last 24 hr 01/14/22 01/14/22 01/15/22 15:51 19:13 06:14 Sodium 139 Potassium 5.3 H Chloride 111 H Carbon Dioxide 22 Anion Gap 11 L BUN 34 H Creatinine 1.64 H Estim Creat Clear Calc 34.5 Estimated GFR 31 POC Glucose 154 H 136 H Random Glucose 125 H Calcium 8.7 D Total Creatine Kinase 673 H 01/15/22 01/15/22 07:16 10:56 Sodium Potassium Chloride Carbon Dioxide Anion Gap BUN Creatinine Estim Creat Clear Calc Estimated GFR POC Glucose 153 H 133 H Random Glucose Calcium Total Creatine Kinase Discharge Plan Discharge Anticipated Discharge Date/Time: 01/15/22 13:56 Patient Disposition: Home Health Service Discharge Diagnosis: acute toxic metabolic encephalopathy acute on chronic kidney disease stage 3 hyperkalemia UTI elevated CPK Referrals: Brittney KIRKLAND [Outside] - 1 Week Janet Phelan MD [Primary Care Provider] - 1 Week Discharge Medications: New amlodipine 5 mg Tablet 5 mg PO DAILY Qty: 30 0RF Protocol: Hold for SBP< HOLD for SBP < : 90 levofloxacin 250 mg tablet 250 mg PO DAILY Qty: 7 0RF Continued ezetimibe 10 mg tablet 10 mg PO DAILY Qty: 90 3RF quetiapine 300 mg tablet 150 mg PO BEDTIME PRN (Reason: Insomnia) Rx Instructions: MRX1 metoprolol tartrate 25 mg tablet 25 mg PO BID Protocol: Hold for SBP/HR < HOLD for SBP < : 90 HOLD for HR < : 60 Eliquis 5 mg Tablet 5 mg PO BID Qty: 60 0RF (DME) lancets [FreeStyle Lancets] 28 gauge misc See Rx Instructions .ROUTE .MEDSUPPLY Qty: 100 0RF Rx Instructions: As directed (DME) FreeStyle Lite Strips Strip See Rx Instructions .Route Qty: 100 0RF Rx Instructions: As directed (DME) pen needle, diabetic [Pen Needle] 32 gauge x 5/32 needle See Rx Instructions .Route Qty: 50 0RF Rx Instructions: As directed duloxetine 30 mg capsule,delayed release(DR/EC) 30 mg PO DAILY gabapentin 600 mg tablet 1 tab PO BEDTIME (DME) lancing device with lancets [[employer] Delica Lanc Device] Kit See Rx Instructions .ROUTE .MEDSUPPLY Qty: 1 Rx Instructions: As directed fluoxetine 20 mg capsule 20 mg PO DAILY albuterol sulfate 90 mcg/actuation HFA aerosol inhaler 2 puff inhalation QID PRN (Reason: Respiratory Distress) ferrous sulfate 325 mg (65 mg iron) tablet 325 mg PO DAILY estradiol 0.01 % (0.1 mg/gram) cream See Rx Instructions .Route 3XW 30 Days Qty: 42.5 2RF Rx Instructions: pea-sized to urethra 3 times a week Changed insulin glargine [Lantus Solostar U-100 Insulin] 100 unit/mL (3 mL) insulin pen 10 unit subcut BEDTIME Qty: 15 0RF insulin lispro [Humalog KwikPen Insulin] 100 unit/mL insulin pen 4 unit subcut TIDAC Qty: 4 0RF Discontinued gabapentin 400 mg capsule 400 mg PO TID Rx Instructions: BEDTIME TOTAL DOSE 1000MG aspirin 81 mg Capsule 81 mg PO DAILY lisinopril-hydrochlorothiazide 20-25 mg tablet 1 tab PO DAILY ciprofloxacin-dexamethasone 0.3-0.1 % drops,suspension 4 drp otic (ears) BID sulfamethoxazole-trimethoprim 800-160 mg tablet 1 tab PO BID Rx Instructions: ORDERED 12/27/21 FOR 7 DAYS, PATIENT STILL HAS PILLS IN HER BOTTLE Discharge Orders: Discharge Order (Routine); Ordered 01/15/22 Ordered By: Kimberly Luu Diet: Diabetic diet Activity on Discharge: As tolerated Stand Alone Forms: Patient Portal Discharge page Other Ambulatory Orders: Basic Metabolic Panel (Routine) Timeframe: 3 Days Facility: [facility] - Location: Laboratory Ordered By: Kimberly Luu Care Plan Goals: acute kidney injury resolved take low-potassium diet, stop lisinopril and hydrochlorothiazide, stop Bactrim, stop aspirin take by mouth Levaquin 250 mg by mouth daily as prescribed you are being discharged home with VNA and PT services follow diabetic diet monitor blood sugars, if noted to have low blood sugars before meals to not take Humalog insulin stop gabapentin 400 mg t.i.d. continue Belcher catheter Health Concerns: take all medications as prescribed Plan of Treatment: outpatient follow-up with primary care physician, review all baseline medications, follow-up with Dr. Mayito Calhoun from Urology call to make an appointment in next 1-2 weeks, outpatient follow up with Nephrology Assessment: as above Discharge Date/Time: 01/15/22 16:41
[2022-01-15] MEDS: levoFLOXacin 500 MG TABLET PO (15:37)
--- NOTE | 2022-01-15 16:12 | MHC.CM.PN ---
Patient has been medically cleared for dc to home today, with services. A referral was made to [facility], who has been notified of today's dc. CM went to room 452 to deliver IMM and Patient had already left the hospital.
--- NOTE | 2022-01-15 16:37 | PC.NURSE ---
Pt d/c home, denies chest pain, headache, SOB or dizzness. Pt was accompany by her daughter and hospital staff. Pt use W/C to ambulate out of hospital. Pt took all her belonging.
== END 2022-01-15 16:41 | disposition home health service (06) | DRG 683 ==
LOC: HO.ED 12:25 → HO.EDOVER 17:48 → HO.IMC 19:38
PROVIDERS: Physician Assistant; Admitting Provider Hospitalist; Emergency Provider Emergency Medicine; PCP Internal Medicine; Visit Provider Hospitalist
DX: N17.9 Acute kidney failure, unspecified (principal); M62.82 Rhabdomyolysis; N13.6 Pyonephrosis; E11.42 Type 2 diabetes mellitus with diabetic polyneuropathy; I12.9 Hypertensive chronic kidney disease with stage 1 through stage 4 chronic kidney disease, or unspecified chronic kidney disease; N18.30 Chronic kidney disease, stage 3 unspecified; E11.22 Type 2 diabetes mellitus with diabetic chronic kidney disease; E78.00 Pure hypercholesterolemia, unspecified; I48.0 Paroxysmal atrial fibrillation; I25.10 Atherosclerotic heart disease of native coronary artery without angina pectoris; E87.5 Hyperkalemia; F32.A Depression, unspecified; R29.6 Repeated falls; T36.8X5A Adverse effect of other systemic antibiotics, initial encounter; Z91.81 History of falling; Z20.822 Contact with and (suspected) exposure to COVID-19; Z99.3 Dependence on wheelchair; Z87.891 Personal history of nicotine dependence; Z88.5 Allergy status to narcotic agent; Z79.4 Long term (current) use of insulin; Z79.01 Long term (current) use of anticoagulants; Z79.899 Other long term (current) drug therapy
CPT/HCPCS: 36415; 70450; 71111; 72125; 73564; 74176; 80048; 80076; 81001; 82550; 82947; 83735; 83880; 84484; 85025; 85027; 85610; 85730; 87086; 87088; 87186; 87502; 87635; 93005; 94640; 99285; C1758; J0610; J0696

== ENCOUNTER 2022-01-21 12:22 | Outpatient (REF) | payer OTHER, SELFPAY ==
[2022-01-21 13:53] LABS: Anion Gap 15 (12-20); Blood Urea Nitrogen 29 mg/dL (9-16); Calcium 9.1 mg/dL (8.4-10.2); Carbon Dioxide 21 mmol/L (22-29); Chloride 110 mmol/L (96-108); Estimated Glomerular Filt Rate 27; Glucose Random 178 mg/dL (60-115); Potassium 4.6 mmol/L (3.3-5.1); Sodium 141 mmol/L (135-145)
== END 2022-01-21 12:23 | disposition home or self-care (01) ==
LOC: HO.HVNA 12:22
PROVIDERS: Visit Provider Internal Medicine
DX: N17.9 Acute kidney failure, unspecified (principal)
CPT/HCPCS: 36415; 80048

== ENCOUNTER 2022-02-21 12:43 | Outpatient (REF) | payer OTHER, SELFPAY ==
--- NOTE | ~2022-02-21 | XR_ITS ---
EXAMINATION: XR SHOULDER, LEFT CLINICAL INFORMATION: Left shoulder pain status post fall. COMPARISON: None TECHNIQUE: AP external rotation, Grashey, scapular Y, and axillary views of the left shoulder. FINDINGS: Mild to moderate left glenohumeral and acromioclavicular degenerative joint changes are seen. Mild calcification is seen at the insertion of the rotator cuff at the greater tuberosity. The visualized left ribs are intact. The soft tissues are unremarkable. XR/XR shoulder LT min 2V IMPRESSION: Mild to moderate degenerative joint changes as detailed above without overt acute abnormality.
== END 2022-02-21 12:44 | disposition home or self-care (01) ==
LOC: HO.XRAY 12:43
PROVIDERS: PCP Internal Medicine; Visit Provider Internal Medicine
DX: M25.512 Pain in left shoulder (principal); Z91.81 History of falling
CPT/HCPCS: 73030

== ENCOUNTER → 2022-03-11 14:14 | Outpatient (BNVA) | payer OTHER, SELFPAY | PROVIDERS: PCP Internal Medicine; Visit Provider Nurse Practitioner Family | DX: R33.9 Retention of urine, unspecified (principal); R35.0 Frequency of micturition; N39.0 Urinary tract infection, site not specified; N39.42 Incontinence without sensory awareness | CPT/HCPCS: 99212 ==

== ENCOUNTER 2022-03-19 12:35 | Outpatient (REF) | payer OTHER, SELFPAY ==
[2022-03-19 12:44] LABS: Appearance Urine Clear; Color Urine Yellow; Glucose Urine UA Negative (Negative); Leukocyte Esterase Urine Moderate (2+) (Negative); Nitrite Urine Negative (Negative); Specific Gravity - Urine 1.015 (1.005-1.025); UMIC TRIGGER UA YES; Urine Blood Small (1+) (Negative); Urine Ketones Negative (Negative); Urine Protein 30 (1+) mg/dL (Neg-Trace)
[2022-03-19 13:09] LABS: Bacteria Urine Trace (None Seen); Hyaline Casts Urine 0-2 /LPF (0-2); Squamous Epithelial Cell Urine 0-2 /HPF (0-2); WBC Urine 21-50 /HPF (0-5)
== END 2022-03-19 12:36 | disposition home or self-care (01) ==
LOC: HO.HVNA 12:35
PROVIDERS: Hospitalist; Nurse Practitioner Family; Visit Provider Urology
DX: N31.9 Neuromuscular dysfunction of bladder, unspecified (principal); E78.00 Pure hypercholesterolemia, unspecified; I10 Essential (primary) hypertension; I25.2 Old myocardial infarction; N17.9 Acute kidney failure, unspecified; R42 Dizziness and giddiness
CPT/HCPCS: 81001; 87086

== ENCOUNTER 2022-04-10 00:28 | Inpatient (IN) | payer OTHER, SELFPAY ==
[2022-04-10] VITALS (37 sets, daily range): BP systolic 68–160; BP diastolic 23–76; PULSE 53–84; RESP 10–24; TEMP 34–36.1; O2SAT 95–100; BMI 31.7; BMI 44.0; BMI 45.9
--- NOTE | ~2022-04-10 | XR_ITS ---
EXAMINATION: XR CHEST CLINICAL INFORMATION: Orogastric tube COMPARISON: Chest radiograph earlier today at 1:29 PM TECHNIQUE: Frontal view of the chest was obtained. FINDINGS: An enteral tube is present with its tip in the stomach. The previously seen loop in the distal esophagus is no longer present. The ET tube is 4 cm above the stalin. Right IJ catheter with tip in proximal SVC. Left IJ catheter with tip at the innominate SVC junction. The heart is again noted to be enlarged. Bibasilar atelectasis is present. XR/XR chest 1V IMPRESSION: The enteral tube now has its tip in the stomach. Other tubes and catheters as described above.
--- NOTE | ~2022-04-10 | XR_ITS ---
EXAMINATION: XR chest 1V CLINICAL INFORMATION: Reason for Exam s/p philipp placement COMPARISON: Prior study same day earlier TECHNIQUE: XR chest 1V Tubes and lines: Endotracheal tube tip is about 3 cm from stalin. Gastric tube passing below the diaphragm, the tip excluded from film margin. There is another tube projecting over the mediastinum coming from the abdomen with its tip projecting over the mid esophagus. Right IJ central line catheter tip projecting over the SVC. Left IJ central line catheter tip projecting over the SVC. Lungs and pleura: Redemonstration of mild bibasilar atelectasis. Mild pulmonary interstitial opacification unchanged. Heart and mediastinum: Heart and mediastinum are widened however this is exaggerated by AP technique unchanged.. Bones/soft tissue: Skeletal structures included are normal for patient's age. XR/XR chest 1V IMPRESSION: * 1. Left IJ central line catheter tip projecting over the SVC. No pneumothorax. * 2. Endotracheal tube, gastric tube and left IJ central line catheter remain in place. * 3. Redemonstration of mild bibasilar atelectasis and mild pulmonary interstitial opacification. * 4. Widened mediastinum exaggerated by AP technique. * 5. There is a tube projecting over the lower mediastinum the tip of which at the level of mid esophagus, cannot entirely rule out the possibility that the gastric tube is looping in the stomach and reentering the esophagus. ATTENTION TO FOLLOW-UP X-RAY OF THE ABDOMEN RECOMMENDED. (Referring physician staff is being called, to be alerted of the above findings and recommendations.) AJ
--- NOTE | ~2022-04-10 | CT_ITS ---
EXAMINATION: CT ABDOMEN AND PELVIS WITHOUT CONTRAST CLINICAL INFORMATION: Diffuse abdominal pain COMPARISON: 01/11/2022 TECHNIQUE: Multidetector volumetric imaging was performed from the superior aspect of the liver through the pubic symphysis. Sagittal and coronal reformatted images were obtained on the technologist's workstation. This CT examination was performed using dose optimization techniques as appropriate, variously including the following: *Automated exposure control *Adjustment of mA and/or kV according to patient size (this includes techniques or standardized protocols for targeted exams where dose is matched to indication/reason for exam; i.e. extremities or head) *Use of iterative reconstruction technique DLP: 1760 mGy-cm FINDINGS: LUNG BASES: Mild subsegmental atelectasis. LIVER, GALLBLADDER, AND BILIARY TREE: The liver is normal in size, shape, and attenuation. No focal hepatic lesion or biliary ductal dilatation is identified. Patient is status post cholecystectomy. PANCREAS: Unremarkable. SPLEEN: Unremarkable. ADRENAL GLANDS: Unremarkable. KIDNEYS AND URETERS: No hydronephrosis or obstructing calculus bilaterally. Bilateral renal hypodensities measuring up to approximately 4.6 cm on the right, favoring cysts; no follow-up recommended. BLADDER: Decompressed with Solis catheter. GASTROINTESTINAL TRACT: No convincing evidence for bowel obstruction. Large amount of stool is present in the colon. No significant bowel wall thickening is seen. The appendix is unremarkable. No free fluid or free air is seen. ABDOMINAL WALL: No significant hernia is appreciated. Of note, the entire anterior abdominal wall is not able to be included on this exam due to patient body habitus. LYMPH NODES: Normal. VASCULAR: Moderate atherosclerotic calcification. PELVIC VISCERA: Patient is status post hysterectomy. OSSEOUS STRUCTURES: Degenerative changes are noted in the spine. CT/CT abdomen pelvis wo IV con IMPRESSION: Large amount of stool throughout the colon. No convincing evidence for bowel obstruction. Of note, the entire anterior abdominal wall is not able to be included on this exam due to patient body habitus.
--- NOTE | ~2022-04-10 | XR_ITS ---
EXAMINATION: CR CHEST CLINICAL INFORMATION: Central line placement. Second image after readjustment. COMPARISON: Chest x-ray dated 01/11/2022. TECHNIQUE: AP supine portable view of the chest was performed 10:43 AM with subsequent repeat AP supine portable view of the chest obtained at 10:46 AM and after readjustment. FINDINGS: On the initial image obtained, right mainstem intubation with the endotracheal tube is noted. On repeat view obtained after adjustment, the endotracheal tube tip projects approximately 3.7 cm above the level of the stalin. Enteric tube courses into the abdomen with tip not included. Mediastinal drain is seen in the midline extending to mid chest level. Right jugular central venous line is in the upper SVC. EKG leads overlie the chest. Low cervical spine fusion hardware partially included. Cardiomediastinal silhouette is enlarged and indistinct, partly related to technique and partly due to mild left basilar subsegmental atelectasis. There is some mild linear atelectasis in the right lung base. Central vascular congestion is noted. No overt pulmonary edema or pneumothorax. Multilevel moderate vertebral spondylosis in the thoracic and lumbar spine. XR/XR chest 1V IMPRESSION: 1. Endotracheal tube tip projects approximately 3.7 cm above the level of the stalin. 2. Enteric tube courses into the abdomen with tip not included. 3. Right jugular central venous line tip in upper SVC. 4. Mild bibasilar subsegmental atelectasis.
--- NOTE | 2022-04-10 00:44 | ECG_ITS ---
Test Reason : CHEST PAIN Blood Pressure : / mmHG Vent. Rate : 053 BPM Atrial Rate : 053 BPM P-R Int : 174 ms QRS Dur : 078 ms QT Int : 464 ms P-R-T Axes : 073 043 010 degrees QTc Int : 435 ms Sinus bradycardia with Premature atrial complexes Otherwise normal ECG When compared with ECG of 11-JAN-2022 10:47, Premature atrial complexes are now Present Referred By: Sunshine Quiroz Electronically Signed By:SHORTY BUSTILLOS
--- NOTE | 2022-04-10 00:54 | ED_ITS ---
HPI - Abdominal Pain General Chief Complaint: Abdominal Pain Stated Complaint: abd pain Time Seen by Provider: 04/10/22 00:34 Source: patient and EMS Mode of arrival: EMS Limitations: altered mental status and other (Patient's symptoms confused, altered) History of Present Illness HPI narrative: Patient comes to the emergency room complaining of bilateral lower quadrant pain. Patient states it has been going on for approximately 14 days. Patient denies fever chills. Patient called 911. Reviewing patient's Related Data Home Medications Medication Instructions Recorded Confirmed lancing device with lancets kit #1 ea 03/24/21 03/13/22 ([employer] Lancing Device kit) metoprolol tartrate 25 mg tablet 25 mg PO BID 07/15/21 03/13/22 quetiapine 300 mg tablet 150 mg PO BEDTIME PRN Insomnia 07/15/21 03/13/22 albuterol sulfate 90 mcg/actuation 2 puff inhalation QID PRN 11/30/21 03/13/22 aerosol inhaler Respiratory Distress duloxetine 30 mg capsule,delayed 30 mg PO DAILY 11/30/21 03/13/22 release ferrous sulfate 325 mg (65 mg 325 mg PO DAILY 11/30/21 03/13/22 iron) tablet fluoxetine 20 mg capsule 20 mg PO DAILY 11/30/21 03/13/22 gabapentin 600 mg tablet 1 tab PO BEDTIME 01/11/22 03/13/22 Previous Rx's Medication Instructions Recorded apixaban 5 mg tablet (Eliquis) 5 mg PO BID #60 tabs 01/26/21 blood sugar diagnostic (FreeStyle #100 ea 01/26/21 Lite Strips) lancets 28 gauge (FreeStyle #100 ea 01/26/21 Lancets) pen needle, diabetic 32 gauge x #50 ea 01/26/21 (Pen Needle) ezetimibe 10 mg tablet 10 mg PO DAILY #90 tabs 12/24/21 amlodipine 5 mg tablet 5 mg PO DAILY #30 tabs 01/15/22 insulin glargine 100 unit/mL (3 10 unit (0.1 mL) subcut BEDTIME 01/15/22 mL) subcutaneous pen (Lantus #15 mL Solostar U-100 Insulin) insulin lispro 100 unit/mL 4 unit (0.04 mL) subcut TIDAC #4 mL 01/15/22 subcutaneous pen (Humalog KwikPen (U-100) Insulin) levofloxacin 250 mg tablet 250 mg PO DAILY #7 tabs 01/15/22 sulfamethoxazole 800 1 tab PO BID UTI 7 days #14 tabs 03/21/22 mg-trimethoprim 160 mg tablet (Bactrim DS) sulfamethoxazole 800 1 tab PO .COMPLEX 30 days #30 tabs 03/23/22 mg-trimethoprim 160 mg tablet (Bactrim DS) Allergies Allergy/AdvReac Type Severity Reaction Status Date / Time atorvastatin [ATORVASTATIN] Allergy Intermediate SWELLING Verified 03/13/22 20:4 8 morphine [MORPHINE] Allergy Intermediate RASH Verified 03/13/22 20:48 zolpidem [From AMBIEN] AdvReac Intermediate SLEEP WALKS Verified 03/13/22 20:48 Review of Systems Review of Systems Patient complaining of bilateral lower quadrant pain. Patient unable to give much history due to current medical condition, encephalopathy. Yes Unobtainable due to mental condition PMFSH Past Medical History Medical History Anxiety and depression Arthritis Asthma Atrial flutter Chronic kidney disease, stage 3 Chronic pain Diabetes mellitus High cholesterol History of myocardial infarction HTN (hypertension) Hyperglycemia Lateral malleolar fracture Limited mobility Multiple falls Myocardial infarction On anticoagulant therapy On beta lanette at home Paroxysmal atrial fibrillation Type 2 diabetes mellitus with unspecified complications Urgency incontinence Surgical History H/O neck surgery History of cataract extraction History of cystoscopy History of heart artery stent Hx of cholecystectomy Hx of colonoscopy Family History Family History Father No problems noted. Mother Diabetes High blood pressure Stomach cancer Social History Social History Household Members: None Housing: Apartment Are you a primary child care team lead to a significant other at home: No Do you presently have visiting nurse or other home services: Yes Alcohol intake: current Alcohol intake frequency: does not drink Patient Tobacco Use Status: Former Tobacco user Quit Date: 2005 Tobacco use type: Cigarette Years Smoked: 30-40 years Smoked in Last 30 Days: No Second Hand Smoke Exposure: No Use of substances other than those prescribed or required for medical reasons: No Advance Directives: No service: No Current occupational status: disabled Physical Exam ED Vital Signs: Vital Signs - 24 hr 04/10/22 01:10 04/10/22 02:10 04/10/22 02:52 Temperature 95.6 F L Pulse Rate Respiratory Rate Blood Pressure 71/23 L 106/59 L 111/76 Pulse Oximetry Oxygen Delivery Method 04/10/22 03:10 04/10/22 02:10 04/10/22 02:52 Temperature Pulse Rate 53 59 Respiratory Rate Blood Pressure 108/54 L Pulse Oximetry Oxygen Delivery Method 04/10/22 03:10 04/10/22 04:13 04/10/22 04:54 Temperature 94.0 F L Pulse Rate 63 60 58 Respiratory Rate 10 L 13 Blood Pressure 111/57 L 93/53 L Pulse Oximetry 98 98 Oxygen Delivery Method Room Air Room Air BMI result Body Mass Index 31.7 Const Other: Appearance: Alert x1. Altered mental status Eyes: Pupils equal, round and reactive to light. ENT: Pharynx normal. Neck: Normal inspection. Neck supple. No lymph nodes noted. No crepitus CVS: Normal heart rate and rhythm. Pulses normal. Normal S1 and S2 Respiratory: No respiratory distress. Breath sounds normal. No Wheezing. No rales Abdomen: Soft , distended diffusely, tender to palpation in lower quadrants and suprapubic area, Solis catheter in place, has a foul UTI like smell Skin: Skin cold to touch Extremities: Bilateral pitting edema No Lacerations. No Rash Neuro: Oriented X 1. Moves all extremities, unable to participate in cranial nerve assessment Psych: calm, confused Course Course Course Narrative: -on initial vitals when the patient arrived, patient's rectal temperature 95.6 degrees. Blood pressure in the mid 70s. Patient known to be prone to UTIs, has chronic indwelling catheter. -patient being treated empirically for UTI, reviewing patient's microbiology/sensitivity charts, patient is sensitive to Levaquin, patient receiving 30 mL/kilogram based on an ideal weight of 55 kg, patient is obese -all of patient's labs and imaging are pending - Medical Decision Making Medical Decision Making MDM Narrative: -patient's EKG shows sinus bradycardia, heart rate 53, no ST segment depression or elevation, no T-wave inversion, no peak T-wave, QTC 435 -patient is likely bradycardic secondary to hypothermia -patient's rectal temperature 95.6, patient currently on a Danielle Hugger -patient has hyperkalemia, patient has history of previous episodes of hyperkalemia -patient receiving D50 , 50 mg, 10 units of insulin, calcium gluconate IV, Lokelma, albuterol lab -EKG does not show peaked T-waves -urinalysis is pending -patient already received fluids and Levaquin -CT scan does not show any acute obstruction -initial blood pressure 71/23, improved to 104 systolic after 1 L of IV fluids, rest of fluid still running. 03:02, blood pressure 111/76 -I discussed the patient with Dr. Garcia, patient being admitted -05:05, lactic acid improved to 4.9. -with respiratory to obtain an arterial blood gas. Unfortunately, they were unable to get the 1st time, patient states that she does not want to have him attempt a 2nd time. Differential Diagnosis Differential Diagnoses: The differential diagnosis associated with the presentation includes (UTI, sepsis, metabolic encephalopathy) Admission/Observation Consideration of admission/observation: Escalation of care including admission/observation considered Consult Healthcare Provider Management of the patient was discussed with: Hospitalist Lab Data MDM Lab Attestation statement: I reviewed the patient's lab results. 04/10/22 01:06 04/10/22 01:06 Labs: Lab Results 04/10/22 04/10/22 04/10/22 Range/Units 01:05 01:05 01:05 WBC (4.8-10.8) X10*3/uL RBC (4.20-5.50) X10*6/uL Hgb (12.0-16.0) g/dl Hct (37.0-47.0) % MCV (80.0-98.0) fL MCH (27.0-33.0) pg MCHC (31.0-35.0) g/dl RDW (11.0-16.0) % Plt Count (160-400) X10*3/uL MPV (9.4-12.3) fL Immature Gran % (Auto) (0.0-0.4) % Neut % (Auto) (45-73) % Lymph % (Auto) (20-40) % [place] % (Auto) (2-11) % Eos % (Auto) (0-4) % Baso % (Auto) (0-2) % Lymph # (Auto) (1.2-4.9) X10*3/uL [place] # (Auto) (0.1-1.2) X10*3/uL Eos # (Auto) (0.0-0.4) X10*3/uL Baso # (Auto) (0.0-0.2) X10*3/uL Abs Immat Gran (auto) (0.00-0.03) X10*3/uL Absolute Neuts (auto) (2.0-8.3) x10*3/uL Absolute Nucleated RBC (0.0-0.012) X10*3/uL Nucleated RBC % (auto) (0.0-0.2) /100WBC PT 17.6 H (10.0-13.1) SEC INR 1.5 H (0.9-1.1) Sodium (135-145) mmol/L Potassium (3.3-5.1) mmol/L Chloride (96-108) mmol/L Carbon Dioxide (22-29) mmol/L Anion Gap (12-20) BUN (9-16) mg/dL Creatinine (0.5-1.4) mg/dL Estim Creat Clear Calc Estimated GFR Random Glucose (60-115) mg/dL Lactic Acid 1.1 (0.5-2.0) mmol/L Calcium (8.4-10.2) mg/dL Total Bilirubin (0.0-1.0) mg/dL Direct Bilirubin (0.0-0.5) mg/dL AST (5-31) U/L ALT (0-31) U/L Alkaline Phosphatase (39-117) U/L Troponin I High Sens (<3.5-17.0) ng/L Total Protein (6.5-8.0) g/dL Albumin (3.5-5.0) g/dL Urine Color Urine Appearance Urine pH (5.0-9.0) Ur Specific [place] (1.005-1.025) Urine Protein (Neg-Trace) mg/dL Urine Glucose (UA) (Negative) mg/dL Urine Ketones (Negative) mg/dL Urine Blood (Negative) Urine Nitrite (Negative) Ur Leukocyte Esterase (Negative) Urine RBC (0-2) /HPF Urine WBC (0-5) /HPF Ur Squamous Epith Cells (0-2) /HPF Urine Bacteria (None Seen) Hyaline Casts (0-2) /LPF COVID-19 (REE) Negative (Negative) COVID-19 Clin Com See Note 04/10/22 04/10/22 04/10/22 Range/Units 01:06 01:06 01:06 WBC 6.5 (4.8-10.8) X10*3/uL RBC 3.38 L (4.20-5.50) X10*6/uL Hgb 9.9 L (12.0-16.0) g/dl Hct 32.7 L (37.0-47.0) % MCV 96.7 (80.0-98.0) fL MCH 29.3 (27.0-33.0) pg MCHC 30.3 L (31.0-35.0) g/dl RDW 16.2 H (11.0-16.0) % Plt Count 358 (160-400) X10*3/uL MPV 10.0 (9.4-12.3) fL Immature Gran % (Auto) 0.5 H (0.0-0.4) % Neut % (Auto) 75.2 H (45-73) % Lymph % (Auto) 15.5 L (20-40) % [place] % (Auto) 6.3 (2-11) % Eos % (Auto) 2.0 (0-4) % Baso % (Auto) 0.5 (0-2) % Lymph # (Auto) 1.0 L (1.2-4.9) X10*3/uL [place] # (Auto) 0.4 (0.1-1.2) X10*3/uL Eos # (Auto) 0.1 (0.0-0.4) X10*3/uL Baso # (Auto) 0.0 (0.0-0.2) X10*3/uL Abs Immat Gran (auto) 0.03 (0.00-0.03) X10*3/uL Absolute Neuts (auto) 4.9 (2.0-8.3) x10*3/uL Absolute Nucleated RBC 0.000 (0.0-0.012) X10*3/uL Nucleated RBC % (auto) 0.0 (0.0-0.2) /100WBC PT (10.0-13.1) SEC INR (0.9-1.1) Sodium 140 (135-145) mmol/L Potassium 7.1 H* D (3.3-5.1) mmol/L Chloride 112 H (96-108) mmol/L Carbon Dioxide 17 L (22-29) mmol/L Anion Gap 18 (12-20) BUN 72 H (9-16) mg/dL Creatinine 4.57 H* (0.5-1.4) mg/dL Estim Creat Clear Calc 11.3 Estimated GFR 9 Random Glucose 138 H (60-115) mg/dL Lactic Acid (0.5-2.0) mmol/L Calcium 7.6 L D (8.4-10.2) mg/dL Total Bilirubin 0.3 (0.0-1.0) mg/dL Direct Bilirubin < 0.2 (0.0-0.5) mg/dL AST 16 (5-31) U/L ALT 14 (0-31) U/L Alkaline Phosphatase 121 H (39-117) U/L Troponin I High Sens 6.1 (<3.5-17.0) ng/L Total Protein 7.6 (6.5-8.0) g/dL Albumin 4.0 (3.5-5.0) g/dL Urine Color Urine Appearance Urine pH (5.0-9.0) Ur Specific [place] (1.005-1.025) Urine Protein (Neg-Trace) mg/dL Urine Glucose (UA) (Negative) mg/dL Urine Ketones (Negative) mg/dL Urine Blood (Negative) Urine Nitrite (Negative) Ur Leukocyte Esterase (Negative) Urine RBC (0-2) /HPF Urine WBC (0-5) /HPF Ur Squamous Epith Cells (0-2) /HPF Urine Bacteria (None Seen) Hyaline Casts (0-2) /LPF COVID-19 (REE) (Negative) COVID-19 Clin Com 04/10/22 04/10/22 Range/Units 01:48 04:24 WBC (4.8-10.8) X10*3/uL RBC (4.20-5.50) X10*6/uL Hgb (12.0-16.0) g/dl Hct (37.0-47.0) % MCV (80.0-98.0) fL MCH (27.0-33.0) pg MCHC (31.0-35.0) g/dl RDW (11.0-16.0) % Plt Count (160-400) X10*3/uL MPV (9.4-12.3) fL Immature Gran % (Auto) (0.0-0.4) % Neut % (Auto) (45-73) % Lymph % (Auto) (20-40) % [place] % (Auto) (2-11) % Eos % (Auto) (0-4) % Baso % (Auto) (0-2) % Lymph # (Auto) (1.2-4.9) X10*3/uL [place] # (Auto) (0.1-1.2) X10*3/uL Eos # (Auto) (0.0-0.4) X10*3/uL Baso # (Auto) (0.0-0.2) X10*3/uL Abs Immat Gran (auto) (0.00-0.03) X10*3/uL Absolute Neuts (auto) (2.0-8.3) x10*3/uL Absolute Nucleated RBC (0.0-0.012) X10*3/uL Nucleated RBC % (auto) (0.0-0.2) /100WBC PT (10.0-13.1) SEC INR (0.9-1.1) Sodium 141 (135-145) mmol/L Potassium 6.6 H* (3.3-5.1) mmol/L Chloride 116 H (96-108) mmol/L Carbon Dioxide 15 L (22-29) mmol/L Anion Gap 17 (12-20) BUN 70 H (9-16) mg/dL Creatinine 4.29 H* (0.5-1.4) mg/dL Estim Creat Clear Calc 12.0 Estimated GFR 10 Random Glucose 165 H (60-115) mg/dL Lactic Acid (0.5-2.0) mmol/L Calcium 7.4 L (8.4-10.2) mg/dL Total Bilirubin (0.0-1.0) mg/dL Direct Bilirubin (0.0-0.5) mg/dL AST (5-31) U/L ALT (0-31) U/L Alkaline Phosphatase (39-117) U/L Troponin I High Sens (<3.5-17.0) ng/L Total Protein (6.5-8.0) g/dL Albumin (3.5-5.0) g/dL Urine Color Yellow Urine Appearance Turbid Urine pH 6.0 (5.0-9.0) Ur Specific [place] 1.020 (1.005-1.025) Urine Protein 100 (2+) H (Neg-Trace) mg/dL Urine Glucose (UA) Negative (Negative) mg/dL Urine Ketones Negative (Negative) mg/dL Urine Blood Large (3+) H (Negative) Urine Nitrite Negative (Negative) Ur Leukocyte Esterase Large (3+) H (Negative) Urine RBC >20 H (0-2) /HPF Urine WBC >50 H (0-5) /HPF Ur Squamous Epith Cells 6-10 (0-2) /HPF Urine Bacteria 4+ (None Seen) Hyaline Casts 11-20 (0-2) /LPF COVID-19 (REE) (Negative) COVID-19 Clin Com Independent Interpretation I performed an independent interpretation of an: CT Scan (By CT scan of the abdomen to position: Large amount of stool present, no air-fluid levels) Radiology Impression Discussion of test interpretation with radiology: I have reviewed the radiologist's reading. Radiologist Impression: FINDINGS: LUNG BASES: Mild subsegmental atelectasis.? LIVER, GALLBLADDER, AND BILIARY TREE: The liver is normal in size, shape, and attenuation. No focal hepatic lesion or biliary ductal dilatation is identified. Patient is status post cholecystectomy.? PANCREAS: Unremarkable.? SPLEEN: Unremarkable.? ADRENAL GLANDS: Unremarkable.? KIDNEYS AND URETERS: No hydronephrosis or obstructing calculus bilaterally. Bilateral renal hypodensities measuring up to approximately 4.6 cm on the right, favoring cysts; no follow-up recommended. BLADDER: Decompressed with Solis catheter.? GASTROINTESTINAL TRACT: No convincing evidence for bowel obstruction. Large amount of stool is present in the colon. No significant bowel wall thickening is seen. The appendix is unremarkable. No free fluid or free air is seen. ABDOMINAL WALL: No significant hernia is appreciated. Of note, the entire anterior abdominal wall is not able to be included on this exam due to patient body habitus. LYMPH NODES: Normal. VASCULAR: Moderate atherosclerotic calcification. PELVIC VISCERA: Patient is status post hysterectomy.? OSSEOUS STRUCTURES: Degenerative changes are noted in the spine.? CT/CT abdomen pelvis wo IV con IMPRESSION: Large amount of stool throughout the colon. No convincing evidence for bowel obstruction. Of note, the entire anterior abdominal wall is not able to be included on this exam due to patient body habitus. ? Medications Administered Discontinued Medications Generic Name Dose Route Start Last Admin Trade Name Freq PRN Reason Stop Dose Admin Acetaminophen 650 mg 04/10/22 02:16 04/10/22 03:27 Acetaminophen 325 Mg Tablet PO 04/10/22 02:17 Not Given ONCE ONE Acetaminophen 975 mg 04/10/22 02:30 04/10/22 02:34 Acetaminophen 325 Mg Tablet PO 04/10/22 02:31 975 mg ONCE ONE Administration Albuterol Sulfate 5 mg 04/10/22 01:39 04/10/22 02:08 Albuterol Sulfate (0.083%) 2.5 Mg/3 Ml Vial.Neb INHALE 04/10/22 01:40 5 mg ONCE ONE Administration Dextrose 50 gm 04/10/22 01:36 04/10/22 02:37 Dextrose 50 % 25 Gm/50 Ml Syringe IVPUSH 04/10/22 01:37 50 gm ONCE ONE Administration Sodium Chloride 1,000 mls @ 999 mls/hr 04/10/22 00:44 04/10/22 04:01 Ns IVCONT 04/10/22 01:44 Infused .Q1H1M ONE Infusion Sodium Chloride 1,000 mls @ 999 mls/hr 04/10/22 00:56 04/10/22 04:02 Ns IVCONT 04/10/22 01:56 Infused .Q1H1M ONE Infusion Levofloxacin 750 mg in 150 mls @ 100 mls/hr 04/10/22 00:57 04/10/22 03:27 Levaquin IV 04/10/22 02:26 Infused ONCE ONE Infusion Calcium Gluconate 2 gm in 100 mls @ 50 mls/hr 04/10/22 01:36 04/10/22 03:27 Calcium Gluconate IV 04/10/22 03:35 Infused ONCE ONE Infusion Insulin Human Regular 10 unit 04/10/22 01:36 04/10/22 02:32 Insulin Regular, Human 100 Unit/Ml 3 Ml Vial IVPUSH 04/10/22 01:37 10 unit ONCE ONE Administration Sodium Zirconium Cyclosilicate 10 gm 04/10/22 01:39 04/10/22 02:33 Sodium Zirconium Cyclosilicate 10 Gm Powd.Pack PO 04/10/22 01:40 10 gm ONCE ONE Administration Critical Care Time Critical Care Time Critical Care Time: Yes Total Critical Care Time: 75 Attestation: I have personally provided critical care time. Time includes review of lab data, radiology results, discussion with consultants, and monitoring for potential decompensation. Intervention performed as documented. Discharge Plan Discharge Clinical Impression: Encephalopathy, Acute UTI, Acute hyperkalemia, LETHA (acute kidney injury) Prescriptions: No Action ezetimibe 10 mg tablet 10 mg PO DAILY Qty: 90 3RF sulfamethoxazole-trimethoprim [Bactrim DS] 800-160 mg tablet 1 tab PO BID 7 Days Qty: 14 0RF sulfamethoxazole-trimethoprim [Bactrim DS] 800-160 mg tablet 1 tab PO .COMPLEX 30 Days Qty: 30 1RF Rx Instructions: 1 tab orally on days of catheter change; quetiapine 300 mg tablet 150 mg PO BEDTIME PRN (Reason: Insomnia) Rx Instructions: MRX1 metoprolol tartrate 25 mg tablet 25 mg PO BID Protocol: Hold for SBP/HR < HOLD for SBP < : 90 HOLD for HR < : 60 Eliquis 5 mg Tablet 5 mg PO BID Qty: 60 0RF (DME) lancets [FreeStyle Lancets] 28 gauge misc See Rx Instructions .ROUTE .MEDSUPPLY Qty: 100 0RF Rx Instructions: As directed (DME) FreeStyle Lite Strips Strip See Rx Instructions .Route Qty: 100 0RF Rx Instructions: As directed (DME) pen needle, diabetic [Pen Needle] 32 gauge x 5/32 needle See Rx Instructions .Route Qty: 50 0RF Rx Instructions: As directed duloxetine 30 mg capsule,delayed release(DR/EC) 30 mg PO DAILY gabapentin 600 mg tablet 1 tab PO BEDTIME amlodipine 5 mg Tablet 5 mg PO DAILY Qty: 30 0RF Protocol: Hold for SBP< HOLD for SBP < : 90 levofloxacin 250 mg tablet 250 mg PO DAILY Qty: 7 0RF insulin glargine [Lantus Solostar U-100 Insulin] 100 unit/mL (3 mL) insulin pen 10 unit subcut BEDTIME Qty: 15 0RF insulin lispro [Humalog KwikPen Insulin] 100 unit/mL insulin pen 4 unit subcut TIDAC Qty: 4 0RF (DME) lancing device with lancets [[employer] Lanc Device] Kit See Rx Instructions .ROUTE .MEDSUPPLY Qty: 1 Rx Instructions: As directed fluoxetine 20 mg capsule 20 mg PO DAILY albuterol sulfate 90 mcg/actuation HFA aerosol inhaler 2 puff inhalation QID PRN (Reason: Respiratory Distress) ferrous sulfate 325 mg (65 mg iron) tablet 325 mg PO DAILY
[2022-04-10] MEDS: levoFLOXacin/D5W 750 MG/150 ML PIGGYBACK 100 MG IV (01:09)
[2022-04-10] MEDS: 0.9 % Sodium Chloride 1,000 ML 999 ML IVCONT ×2 (01:09)
[2022-04-10 01:13] LABS: MANUAL DIFF FLAG NO
[2022-04-10 01:14] LABS: Basophils Percent Auto 0.5 % (0-2); Eosinophils Absolute Auto 0.1 X10*3/uL (0.0-0.4); Hematocrit 32.7 % (37.0-47.0); Hemoglobin 9.9 g/dl (12.0-16.0); Imm Gran Abs Auto 0.03 X10*3/uL (0.00-0.03); Imm Gran Pct Auto 0.5 % (0.0-0.4); Lymphocytes Percent Auto 15.5 % (20-40); Mean Corpuscular HGB Conc 30.3 g/dl (31.0-35.0); Mean Corpuscular Hemoglobin 29.3 pg (27.0-33.0); Mean Corpuscular Volume 96.7 fL (80.0-98.0); Monocytes Absolute Auto 0.4 X10*3/uL (0.1-1.2); Monocytes Percent Auto 6.3 % (2-11); Neutrophils Absolute Auto 4.9 x10*3/uL (2.0-8.3); Neutrophils Percent Auto 75.2 % (45-73); Platelet Count 358 X10*3/uL (160-400); Red Blood Count 3.38 X10*6/uL (4.20-5.50); Red Cell Distribution Width 16.2 % (11.0-16.0); White Blood Count 6.5 X10*3/uL (4.8-10.8)
[2022-04-10 01:19] LABS: INTERNATIONAL NORM RATIO 1.5 (0.9-1.1); Prothrombin Time 17.6 SEC (10.0-13.1)
[2022-04-10 01:26] LABS: COVID-19 Test Negative (Negative); IDNOW Serial# 6674DD1D; Lactic Acid 1.1 mmol/L (0.5-2.0)
[2022-04-10 01:35] LABS: Troponin-I High Sensitivity 6.1 ng/L (<3.5-17.0)
[2022-04-10 01:36] LABS: Alanine Aminotransferase 14 U/L (0-31); Alkaline Phosphatase 121 U/L (39-117); Anion Gap 18 (12-20); Aspartate Amino Transferase 16 U/L (5-31); Bilirubin Direct < 0.2 mg/dL (0.0-0.5); Bilirubin Total 0.3 mg/dL (0.0-1.0); Blood Urea Nitrogen 72 mg/dL (9-16); Calcium 7.6 mg/dL (8.4-10.2); Carbon Dioxide 17 mmol/L (22-29); Chloride 112 mmol/L (96-108); Creatinine Clr Calc Pharmacy 11.3; Estimated Glomerular Filt Rate 9; Glucose Random 138 mg/dL (60-115); Potassium 7.1 mmol/L (3.3-5.1); Sodium 140 mmol/L (135-145); Total Protein 7.6 g/dL (6.5-8.0)
[2022-04-10 01:54] LABS: Appearance Urine Turbid; Color Urine Yellow; Glucose Urine UA Negative (Negative); Leukocyte Esterase Urine Large (3+) (Negative); Nitrite Urine Negative (Negative); UMIC TRIGGER UACC YES; Urine Blood Large (3+) (Negative); Urine Ketones Negative (Negative); Urine Protein 100 (2+) mg/dL (Neg-Trace)
[2022-04-10 02:05] LABS: Bacteria Urine 4+ (None Seen); RBC Urine >20 /HPF (0-2); UACC Culture Trigger YES; WBC Urine >50 /HPF (0-5)
[2022-04-10] MEDS: Albuterol Sulfate (0.083%) 2.5 MG/3 ML VIAL.NEB 5 MG INHALE (02:08)
[2022-04-10] MEDS: Insulin Regular, Human 100 UNIT/ML 3 ML VIAL 10 UNIT IVPUSH (02:32)
[2022-04-10] MEDS: Calcium Gluconate/NaCl,Iso-Osm 2 GM/100 ML PLAST..BAG IV (02:33)
[2022-04-10] MEDS: Sodium Zirconium Cyclosilicate 10 GM POWD.PACK PO ×2 (02:33→06:37)
[2022-04-10] MEDS: Acetaminophen 325 MG TABLET 975 MG PO (02:34)
[2022-04-10] MEDS: Dextrose 50 % 25 GM/50 ML SYRINGE IVPUSH ×2 (02:37→05:28)
--- NOTE | 2022-04-10 03:29 | PC.NURSE ---
Pt arrived via EMS aox3. Speech is not clear. Unsure if unclear speech is at baseline. Answers questions appropriately. Rectal temp on arrival 95.6F with systolic BP 75. O2 sat 96% RA. Abd hard and distended. Pt reports abd pain that radiates up into the left chest/shoulder area. Pt arrived with belcher catheter in place. Dark, cloudy yellow urine with foul odor in urine collection bag noted. Sepsis protocol initiated. 20 G IV line established on the left AC. Cultures drawn and sent. Antibiotics and fluids started as ordered. Pt tolerated well with systolic BP improvement to 108. Second IV line established with 20G on R AC. Danielle huggers initiated. Pt transferred to a hospital bed to improve comfort. MD and respiratory at bedside. Will continue to monitor.
[2022-04-10 05:04] LABS: Anion Gap 17 (12-20); Blood Urea Nitrogen 70 mg/dL (9-16); Calcium 7.4 mg/dL (8.4-10.2); Carbon Dioxide 15 mmol/L (22-29); Chloride 116 mmol/L (96-108); Estimated Glomerular Filt Rate 10; Glucose Random 165 mg/dL (60-115); Potassium 6.6 mmol/L (3.3-5.1); Sodium 141 mmol/L (135-145)
[2022-04-10] MEDS: Albuterol Sulfate (0.083%) 2.5 MG/3 ML VIAL.NEB 10 MG INHALE (05:17)
[2022-04-10] MEDS: Insulin Regular, Human 100 UNIT/ML 3 ML VIAL IVPUSH (05:28)
--- NOTE | 2022-04-10 06:06 | PM.IMHP ---
History of Present Illness Date of Service: 04/10/22 [facility] Medical History Anxiety and depression Arthritis Asthma Atrial flutter Chronic kidney disease, stage 3 Chronic pain Diabetes mellitus High cholesterol History of myocardial infarction HTN (hypertension) Hyperglycemia Lateral malleolar fracture Limited mobility Multiple falls Myocardial infarction On anticoagulant therapy On beta lanette at home Paroxysmal atrial fibrillation Type 2 diabetes mellitus with unspecified complications Urgency incontinence Family History Father No problems noted. Mother Diabetes High blood pressure Stomach cancer Surgical History H/O neck surgery History of cataract extraction History of cystoscopy History of heart artery stent Hx of cholecystectomy Hx of colonoscopy Social History Household Members: None Housing: Apartment Are you a primary healthcare financial analyst to a significant other at home: No Do you presently have visiting nurse or other home services: Yes Alcohol intake: current Alcohol intake frequency: does not drink Patient Tobacco Use Status: Former Tobacco user Quit Date: 2005 Tobacco use type: Cigarette Years Smoked: 30-40 years Smoked in Last 30 Days: No Second Hand Smoke Exposure: No Use of substances other than those prescribed or required for medical reasons: No Advance Directives: No service: No Current occupational status: disabled Meds Allergies Allergy/AdvReac Type Severity Reaction Status Date / Time atorvastatin [ATORVASTATIN] Allergy Intermediate SWELLING Verified 03/13/22 20:48 morphine [MORPHINE] Allergy Intermediate RASH Verified 03/13/22 20:48 zolpidem [From AMBIEN] AdvReac Intermediate SLEEP WALKS Verified 03/13/22 20:48 Home Medications Medication Instructions Recorded Confirmed Last Taken Type lancing device with lancets kit #1 ea 03/24/21 03/13/22 Unknown History ([employer] Lancing Device kit) metoprolol tartrate 25 mg tablet 25 mg PO BID 07/15/21 03/13/22 11/03/21 08:15 History quetiapine 300 mg tablet 150 mg PO BEDTIME PRN Insomnia 07/15/21 03/13/22 10/11/21 History albuterol sulfate 90 mcg/actuation 2 puff inhalation QID PRN 11/30/21 03/13/22 Unknown History aerosol inhaler Respiratory Distress duloxetine 30 mg capsule,delayed 30 mg PO DAILY 11/30/21 03/13/22 Unknown History release ferrous sulfate 325 mg (65 mg 325 mg PO DAILY 11/30/21 03/13/22 Unknown History iron) tablet fluoxetine 20 mg capsule 20 mg PO DAILY 11/30/21 03/13/22 Unknown History gabapentin 600 mg tablet 1 tab PO BEDTIME 01/11/22 03/13/22 Unknown History Physical Exam Vital Signs and Narrative: Vital Signs: Last Vital Signs Temp 94.0 F L 04/10/22 04:13 Pulse 56 04/10/22 05:17 Resp 18 04/10/22 05:17 BP 93/53 L 04/10/22 04:54 Pulse Ox 98 04/10/22 04:54 O2 Del Method 04/10/22 04:54 BMI result Body Mass Index 31.7 Results Labs 04/10/22 01:06 04/10/22 04:24 Labs: Laboratory Results - last 24 hr 04/10/22 04/10/22 04/10/22 01:05 01:05 01:05 MCV MCH MCHC RDW Plt Count MPV Immature Gran % (Auto) Neut % (Auto) Lymph % (Auto) [place] % (Auto) Eos % (Auto) Baso % (Auto) Lymph # (Auto) [place] # (Auto) Eos # (Auto) Baso # (Auto) Abs Immat Gran (auto) Absolute Neuts (auto) Absolute Nucleated RBC Nucleated RBC % (auto) PT 17.6 H INR 1.5 H Anion Gap Estim Creat Clear Calc Estimated GFR Random Glucose Lactic Acid 1.1 Calcium Total Bilirubin Direct Bilirubin AST ALT Alkaline Phosphatase Troponin I High Sens Total Protein Albumin Urine Color Urine Appearance Urine pH Ur Specific [place] Urine Protein Urine Glucose (UA) Urine Ketones Urine Blood Urine Nitrite Ur Leukocyte Esterase Urine RBC Urine WBC Ur Squamous Epith Cells Urine Bacteria Hyaline Casts COVID-19 (REE) Negative COVID-19 Clin Com See Note 04/10/22 04/10/22 04/10/22 01:06 01:06 01:06 MCV 96.7 MCH 29.3 MCHC 30.3 L RDW 16.2 H Plt Count 358 MPV 10.0 Immature Gran % (Auto) 0.5 H Neut % (Auto) 75.2 H Lymph % (Auto) 15.5 L [place] % (Auto) 6.3 Eos % (Auto) 2.0 Baso % (Auto) 0.5 Lymph # (Auto) 1.0 L [place] # (Auto) 0.4 Eos # (Auto) 0.1 Baso # (Auto) 0.0 Abs Immat Gran (auto) 0.03 Absolute Neuts (auto) 4.9 Absolute Nucleated RBC 0.000 Nucleated RBC % (auto) 0.0 PT INR Anion Gap 18 Estim Creat Clear Calc 11.3 Estimated GFR 9 Random Glucose 138 H Lactic Acid Calcium 7.6 L D Total Bilirubin 0.3 Direct Bilirubin < 0.2 AST 16 ALT 14 Alkaline Phosphatase 121 H Troponin I High Sens 6.1 Total Protein 7.6 Albumin 4.0 Urine Color Urine Appearance Urine pH Ur Specific [place] Urine Protein Urine Glucose (UA) Urine Ketones Urine Blood Urine Nitrite Ur Leukocyte Esterase Urine RBC Urine WBC Ur Squamous Epith Cells Urine Bacteria Hyaline Casts COVID-19 (REE) COVID-19 [employer] Com 04/10/22 04/10/22 01:48 04:24 MCV MCH MCHC RDW Plt Count MPV Immature Gran % (Auto) Neut % (Auto) Lymph % (Auto) [place] % (Auto) Eos % (Auto) Baso % (Auto) Lymph # (Auto) [place] # (Auto) Eos # (Auto) Baso # (Auto) Abs Immat Gran (auto) Absolute Neuts (auto) Absolute Nucleated RBC Nucleated RBC % (auto) PT INR Anion Gap 17 Estim Creat Clear Calc 12.0 Estimated GFR 10 Random Glucose 165 H Lactic Acid Calcium 7.4 L Total Bilirubin Direct Bilirubin AST ALT Alkaline Phosphatase Troponin I High Sens Total Protein Albumin Urine Color Yellow Urine Appearance Turbid Urine pH 6.0 Ur Specific [place] 1.020 Urine Protein 100 (2+) H Urine Glucose (UA) Negative Urine Ketones Negative Urine Blood Large (3+) H Urine Nitrite Negative Ur Leukocyte Esterase Large (3+) H Urine RBC >20 H Urine WBC >50 H Ur Squamous Epith Cells 6-10 Urine Bacteria 4+ Hyaline Casts 11-20 COVID-19 (REE) COVID-19 Clin Com Imaging Radiologist's Impressions: Impressions Abdomen/Pelvis CT 04/10/22 01:42 IMPRESSION: Large amount of stool throughout the colon. No convincing evidence for bowel obstruction. Of note, the entire anterior abdominal wall is not able to be included on this exam due to patient body habitus. Assessment and Plan Time Spent With Patient Time: Total time managing care of this patient today ____ minutes. Quality VTE VTE Risk Level:: Medical - moderate - high VTE Device Contraindication: Treatment Not Indicated VTE Drug Contraindication: N/A - Med Ordered
[2022-04-10] MEDS: Lactated Ringers 1,000 ML 100 ML IVCONT (06:37)
--- NOTE | 2022-04-10 06:54 | PC.NURSE ---
Med req completed
[2022-04-10 07:57] LABS: Anion Gap 17 (12-20); Blood Urea Nitrogen 70 mg/dL (9-16); Calcium 7.2 mg/dL (8.4-10.2); Carbon Dioxide 14 mmol/L (22-29); Chloride 116 mmol/L (96-108); Creatinine Clr Calc Pharmacy 11.9; Estimated Glomerular Filt Rate 10; Glucose Random 135 mg/dL (60-115); Potassium 6.2 mmol/L (3.3-5.1); Sodium 141 mmol/L (135-145)
[2022-04-10] MEDS: 0.9 % Sodium Chloride Flush 3 ML SYRINGE IVFLUSH ×3 (08:21→23:14)
--- NOTE | 2022-04-10 08:26 | PC.NURSE ---
Pt is alert/oriented x 2. Changed into hospital attire. Rectal probe placed and core temp 96.6, bear hugger reapplied. Pt reports left arm pain with movement. NSR on tele. Breathing even/unlabored. Abd distended, denies pain. Solis with minimal output, bladder scanned to ensure placement, >36ml. Plan for VBGS as chemistry showing decreased C02. BP remains soft. Skin color normal for ethnicity, warm and dry.
[2022-04-10 09:31] LABS: Venous Blood Gas Refer to POC result
[2022-04-10 09:32] LABS: VBG Base Excess -13.3 mmol/L; VBG HCO3 13 mmol/L (22-26); VBG pCO2 34 mmHg; VBG pH 7.19 (7.32-7.43); VBG pO2 156 mmHg
[2022-04-10] MEDS: 0.9 % Sodium Chloride 2,517.45 ML 2517.45 ML IV (09:46)
[2022-04-10] MEDS: Ketamine HCl 500 MG/5 ML VIAL 335.66 MG IVPUSH (10:05)
--- NOTE | 2022-04-10 10:16 | MHC.EDTECH ---
0945 Went into patient room to draw labs. Per Doctor to hold of on Labs at that time, As he might Add on lab work.
[2022-04-10] MEDS: Norepinephrine Bitartrate/D5W 8 MG/250 ML PLAST..BAG 7.87 MG IV (10:40)
--- NOTE | 2022-04-10 11:09 | PM.CCHP ---
History of Present Illness Date of Service: 04/10/22 Chief Complaint: septic shock, acute respiratory failure 76-year-old lady with underlying history obesity, diabetes mellitus, CAD with prior myocardial infarction, a flutter on anticoagulation with Eliquis, urinary incontinence with multiple prior UTI's including with an ESBL producing organism, CKD stage 3 admitted on 04/10/2022 with 2 week history of worsening bilateral abdominal pain. On ER evaluation patient with acute renal failure, significant metabolic acidosis, with development of hypertension requiring initiation of vasopressor support and respiratory distress requiring intubation. Started on empiric antibiotics and Levophed and admitted to intensive care unit. CT abdomen/ pelvis with no evidence of bowel obstruction. Review of Systems Review of Systems: Yes unobtainable due to endotracheal tube, Unobtainable due to mental condition and Unobtainable due to mental status PMFSH Past Medical History Medical History (Updated 04/10/22 @ 11:14 by Mark Weathers MD) Anxiety and depression Arthritis Asthma Atrial flutter Chronic kidney disease, stage 3 Chronic pain Diabetes mellitus High cholesterol History of myocardial infarction HTN (hypertension) Hyperglycemia Lateral malleolar fracture Limited mobility Multiple falls Myocardial infarction On anticoagulant therapy On beta lanette at home Paroxysmal atrial fibrillation Type 2 diabetes mellitus with unspecified complications Urgency incontinence Family History Family History Father No problems noted. Mother Diabetes High blood pressure Stomach cancer Surgical History Surgical History H/O neck surgery History of cataract extraction History of cystoscopy History of heart artery stent Hx of cholecystectomy Hx of colonoscopy Social History Social History Household Members: None Housing: Apartment Are you a primary childbirth and infant care teacher to a significant other at home: No Do you presently have visiting nurse or other home services: Yes Alcohol intake: current Alcohol intake frequency: does not drink Patient Tobacco Use Status: Former Tobacco user Quit Date: 2005 Tobacco use type: Cigarette Years Smoked: 30-40 years Smoked in Last 30 Days: No Second Hand Smoke Exposure: No Use of substances other than those prescribed or required for medical reasons: No Advance Directives: No Nutrition Risks: No Nutritional Risk service: No Current occupational status: disabled Meds Allergies Allergy/AdvReac Type Severity Reaction Status Date / Time atorvastatin [ATORVASTATIN] Allergy Intermediate SWELLING Verified 03/13/22 20:48 morphine [MORPHINE] Allergy Intermediate RASH Verified 03/13/22 20:48 zolpidem [From AMBIEN] AdvReac Intermediate SLEEP WALKS Verified 03/13/22 20:48 Active Medications: Current Medications Chlorhexidine Gluconate (Chlorhexidine Gluc Oral Rinse 15 Ml Mouthwash) 15 ml BUCCAL Q8H MARY CARMEN Famotidine (Famotidine/Pf 20 Mg/2 Ml Vial) 20 mg IVPUSH DAILY [facility] Heparin Sodium (Porcine) (Heparin Sodium,Porcine 5,000 Unit/Ml Vial) 5,000 unit SUBCUT Q8H MARY CARMEN Norepinephrine Bitartrate (Levophed) 8 mg in 250 mls @ 0 mls/hr IV .Q0M [facility]; Protocol Last Admin: 04/10/22 10:40 Dose: 0.05 mcg/kg/min, 7.87 mls/hr Propofol (Diprivan) 1,000 mg in 100 mls @ 0 mls/hr IVCONT .Q0M [facility]; Protocol Meropenem 1 gm/ Sodium (Chloride) 100 mls @ 200 mls/hr IV ONCE ONE Stop: 04/10/22 11:29 Lactated Ringer's (Lr) 1,000 mls @ 999 mls/hr IV .Q1H1M MARY CARMEN Stop: 04/10/22 14:15 Ondansetron HCl (Ondansetron Hcl 4 Mg/2 Ml Vial) 4 mg IVPUSH Q8H PRN PRN Reason: Nausea and Vomiting Sodium Chloride (0.9 % Sodium Chloride Flush 3 Ml Syringe) 3 ml IVFLUSH QSHIFT [facility] Last Admin: 04/10/22 08:21 Dose: 3 ml Home Medications Medication Instructions Recorded Confirmed Last Taken Type lancing device with lancets kit #1 ea 03/24/21 03/13/22 Unknown History ([employer] Lancing Device kit) metoprolol tartrate 25 mg tablet 25 mg PO BID 07/15/21 04/10/22 11/03/21 08:15 History quetiapine 300 mg tablet 150 mg PO BEDTIME PRN Insomnia 07/15/21 04/10/22 10/11/21 History albuterol sulfate 90 mcg/actuation 2 puff inhalation QID PRN 11/30/21 04/10/22 Unknown History aerosol inhaler Respiratory Distress duloxetine 30 mg capsule,delayed 30 mg PO DAILY 11/30/21 04/10/22 Unknown History release ferrous sulfate 325 mg (65 mg 325 mg PO DAILY 11/30/21 04/10/22 Unknown History iron) tablet fluoxetine 20 mg capsule 20 mg PO DAILY 11/30/21 04/10/22 Unknown History gabapentin 600 mg tablet 1 tab PO BEDTIME 01/11/22 04/10/22 Unknown History lisinopril 20 1 tab PO DAILY 04/10/22 04/10/22 Unknown History mg-hydrochlorothiazide 25 mg tablet Physical Exam Vital Signs: Vital Signs: Last Vital Signs Temp 97.0 F 04/10/22 09:31 Pulse 60 04/10/22 10:40 Resp 12 04/10/22 09:23 BP 70/38 L 04/10/22 10:40 Pulse Ox 95 04/10/22 09:23 O2 Del Method 04/10/22 09:23 BMI result Body Mass Index 31.7 Const: General: no acute distress and other ( Sedated on the vent) Nutritional Appearance: obese Eyes: Sclerae: sclerae normal EOM: EOMs intact bilaterally Neck: Neck: Yes no lymphadenopathy, Yes trachea midline and Yes supple Resp: Auscultation: crackles ( mild bilateral) Cardio: Rate: regular rate Rhythm: regular rhythm Heart sounds: no gallops, no murmurs and no rubs GI: Palpation (GI): Soft to palpation Auscultation: normal bowel sounds Extrem: General: No clubbing, No cyanosis and Yes edema ( trace bilateral) Results Labs 04/10/22 01:06 04/10/22 06:26 Labs: Laboratory Results - last 24 hr 04/10/22 04/10/22 04/10/22 01:05 01:05 01:05 MCV MCH MCHC RDW Plt Count MPV Immature Gran % (Auto) Neut % (Auto) Lymph % (Auto) [place] % (Auto) Eos % (Auto) Baso % (Auto) Lymph # (Auto) [place] # (Auto) Eos # (Auto) Baso # (Auto) Abs Immat Gran (auto) Absolute Neuts (auto) Absolute Nucleated RBC Nucleated RBC % (auto) PT 17.6 H INR 1.5 H VBG pH VBG pCO2 VBG pO2 VBG HCO3 VBG O2 Saturation VBG Base Excess Anion Gap Estim Creat Clear Calc Estimated GFR Random Glucose Lactic Acid 1.1 Calcium Total Bilirubin Direct Bilirubin AST ALT Alkaline Phosphatase Troponin I High Sens Total Protein Albumin Urine Color Urine Appearance Urine pH Ur Specific [place] Urine Protein Urine Glucose (UA) Urine Ketones Urine Blood Urine Nitrite Ur Leukocyte Esterase Urine RBC Urine WBC Ur Squamous Epith Cells Urine Bacteria Hyaline Casts COVID-19 (REE) Negative COVID-19 Clin Com See Note 04/10/22 04/10/22 04/10/22 01:06 01:06 01:06 MCV 96.7 MCH 29.3 MCHC 30.3 L RDW 16.2 H Plt Count 358 MPV 10.0 Immature Gran % (Auto) 0.5 H Neut % (Auto) 75.2 H Lymph % (Auto) 15.5 L [place] % (Auto) 6.3 Eos % (Auto) 2.0 Baso % (Auto) 0.5 Lymph # (Auto) 1.0 L [place] # (Auto) 0.4 Eos # (Auto) 0.1 Baso # (Auto) 0.0 Abs Immat Gran (auto) 0.03 Absolute Neuts (auto) 4.9 Absolute Nucleated RBC 0.000 Nucleated RBC % (auto) 0.0 PT INR VBG pH VBG pCO2 VBG pO2 VBG HCO3 VBG O2 Saturation VBG Base Excess Anion Gap 18 Estim Creat Clear Calc 11.3 Estimated GFR 9 Random Glucose 138 H Lactic Acid Calcium 7.6 L D Total Bilirubin 0.3 Direct Bilirubin < 0.2 AST 16 ALT 14 Alkaline Phosphatase 121 H Troponin I High Sens 6.1 Total Protein 7.6 Albumin 4.0 Urine Color Urine Appearance Urine pH Ur Specific [place] Urine Protein Urine Glucose (UA) Urine Ketones Urine Blood Urine Nitrite Ur Leukocyte Esterase Urine RBC Urine WBC Ur Squamous Epith Cells Urine Bacteria Hyaline Casts COVID-19 (REE) COVID-19 Clin Com 04/10/22 04/10/22 04/10/22 01:48 04:24 06:26 MCV MCH MCHC RDW Plt Count MPV Immature Gran % (Auto) Neut % (Auto) Lymph % (Auto) [place] % (Auto) Eos % (Auto) Baso % (Auto) Lymph # (Auto) [place] # (Auto) Eos # (Auto) Baso # (Auto) Abs Immat Gran (auto) Absolute Neuts (auto) Absolute Nucleated RBC Nucleated RBC % (auto) PT INR VBG pH VBG pCO2 VBG pO2 VBG HCO3 VBG O2 Saturation VBG Base Excess Anion Gap 17 17 Estim Creat Clear Calc 12.0 11.9 Estimated GFR 10 10 Random Glucose 165 H 135 H Lactic Acid Calcium 7.4 L 7.2 L Total Bilirubin Direct Bilirubin AST ALT Alkaline Phosphatase Troponin I High Sens Total Protein Albumin Urine Color Yellow Urine Appearance Turbid Urine pH 6.0 Ur Specific [place] 1.020 Urine Protein 100 (2+) H Urine Glucose (UA) Negative Urine Ketones Negative Urine Blood Large (3+) H Urine Nitrite Negative Ur Leukocyte Esterase Large (3+) H Urine RBC >20 H Urine WBC >50 H Ur Squamous Epith Cells 6-10 Urine Bacteria 4+ Hyaline Casts 11-20 COVID-19 (REE) COVID-19 [employer] Com 04/10/22 09:19 MCV MCH MCHC RDW Plt Count MPV Immature Gran % (Auto) Neut % (Auto) Lymph % (Auto) [place] % (Auto) Eos % (Auto) Baso % (Auto) Lymph # (Auto) [place] # (Auto) Eos # (Auto) Baso # (Auto) Abs Immat Gran (auto) Absolute Neuts (auto) Absolute Nucleated RBC Nucleated RBC % (auto) PT INR VBG pH 7.19 L* VBG pCO2 34 VBG pO2 156 VBG HCO3 13 L VBG O2 Saturation 99.0 VBG Base Excess -13.3 Anion Gap Estim Creat Clear Calc Estimated GFR Random Glucose Lactic Acid Calcium Total Bilirubin Direct Bilirubin AST ALT Alkaline Phosphatase Troponin I High Sens Total Protein Albumin Urine Color Urine Appearance Urine pH Ur Specific [place] Urine Protein Urine Glucose (UA) Urine Ketones Urine Blood Urine Nitrite Ur Leukocyte Esterase Urine RBC Urine WBC Ur Squamous Epith Cells Urine Bacteria Hyaline Casts COVID-19 (REE) COVID-19 Clin Com Imaging Radiologist's Impressions: Impressions Abdomen/Pelvis CT 04/10/22 01:42 IMPRESSION: Large amount of stool throughout the colon. No convincing evidence for bowel obstruction. Of note, the entire anterior abdominal wall is not able to be included on this exam due to patient body habitus. Assessment and Plan (1) Septic shock: Status: Acute (2) Acute respiratory failure: Status: Acute (3) Encephalopathy: Status: Acute (4) Acute UTI: Status: Acute (5) LETHA (acute kidney injury): Status: Acute (6) Diabetes mellitus: Status: Acute (7) Atrial flutter: Status: Acute (8) Chronic kidney disease, stage 3: Status: Acute (9) CAD (coronary artery disease): Status: Acute Plan Assessment: 76-year-old lady admitted with septic shock and acute respiratory failure with acute renal failure and hyperkalemia, likely secondary to gram-negative acute UTI Plan: Neuro: metabolic encephalopathy secondary to septic shock Cardiac: septic shock requiring vasopressor support, continue to titrate off as tolerated. Underlying history of AFlutter on anticoagulation and coronary artery disease. Pulmonary: Acute respiratory failure secondary to septic shock now requiring ventilatory support, continue to titrate off as tolerated. Renal: Acute renal failure, likely secondary to septic shock. Continue to monitor renal indices and urine output. Hyperkalemia, improving. Continue to monitor electrolytes. Endo: No acute issues. Underlying diabetes mellitus. GI: CT abdomen/pelvis with no evidence of obstruction. No concern for bowel ischemia at this time, continue to monitor clinically. ID: Likely septic shock secondary to Gram-negative UTI based on prior culture results. Empirically covered with meropenem and vancomycin. Cultures are pending. Heme/Onc: No acute issues. Psych: No acute issues. Miscellaneous: No acute issues. Prophylaxis: Heparin, famotidine Diet: nothing by mouth Critical care time spent: 90 minutes Time Spent With Patient Time: Total time managing care of this patient today ____ minutes. Critical Care Time Critical Care Time (minutes): 90
[2022-04-10 11:26] LABS: MANUAL DIFF FLAG NO
[2022-04-10 11:27] LABS: Basophils Percent Auto 0.3 % (0-2); Eosinophils Percent Auto 0.2 % (0-4); Hematocrit 28.9 % (37.0-47.0); Hemoglobin 8.7 g/dl (12.0-16.0); Imm Gran Abs Auto 0.03 X10*3/uL (0.00-0.03); Imm Gran Pct Auto 0.5 % (0.0-0.4); Lymphocytes Absolute Auto 0.4 X10*3/uL (1.2-4.9); Lymphocytes Percent Auto 6.1 % (20-40); Mean Corpuscular HGB Conc 30.1 g/dl (31.0-35.0); Mean Corpuscular Hemoglobin 29.8 pg (27.0-33.0); Mean Platelet Volume 9.9 fL (9.4-12.3); Monocytes Absolute Auto 0.5 X10*3/uL (0.1-1.2); Monocytes Percent Auto 7.2 % (2-11); Neutrophils Absolute Auto 5.5 x10*3/uL (2.0-8.3); Neutrophils Percent Auto 85.7 % (45-73); Platelet Count 272 X10*3/uL (160-400); Red Blood Count 2.92 X10*6/uL (4.20-5.50); Red Cell Distribution Width 16.5 % (11.0-16.0); White Blood Count 6.4 X10*3/uL (4.8-10.8)
[2022-04-10] MEDS: Lactated Ringers 1,000 ML 999 ML IV ×3 (11:29→15:40)
[2022-04-10] MEDS: propofoL 1,000 MG/100 ML VIAL 15.11 MG IVCONT (11:38)
[2022-04-10] MEDS: Heparin Sodium,Porcine 5,000 UNIT/ML VIAL 5000 UNIT SUBCUT ×2 (11:40→19:43)
[2022-04-10 11:42] LABS: VBG Base Excess -15.2 mmol/L; VBG HCO3 12 mmol/L (22-26); VBG pCO2 35 mmHg; VBG pO2 65 mmHg
[2022-04-10] MEDS: Chlorhexidine Gluc Oral Rinse 15 ML MOUTHWASH BUCCAL ×2 (11:42→19:43)
[2022-04-10 11:44] LABS: Venous Blood Gas Refer to POC result
[2022-04-10 11:44] LABS: Lactic Acid 0.7 mmol/L (0.5-2.0)
[2022-04-10 11:48] LABS: VBG pH 7.14 (7.32-7.43)
--- NOTE | 2022-04-10 11:54 | PC.NURSE ---
CRITICAL LAB RESULT RECEIVED. PH VBG 7.14. POTASSIUM 6.7. CREATININE 4.16. PRIMARY RN LORI KELLY. RESULTS DOCUMENTED PER ORDER.
[2022-04-10 11:58] LABS: Anion Gap 16 (12-20); Blood Urea Nitrogen 64 mg/dL (9-16); Calcium 6.7 mg/dL (8.4-10.2); Carbon Dioxide 14 mmol/L (22-29); Chloride 117 mmol/L (96-108); Creatinine Clr Calc Pharmacy 14.8; Estimated Glomerular Filt Rate 10; Glucose Random 99 mg/dL (60-115); Potassium 6.7 mmol/L (3.3-5.1); Sodium 140 mmol/L (135-145)
[2022-04-10 12:00] LABS: Albumin Level 3.2 g/dL (3.5-5.0); Anion Gap 15 (12-20); Blood Urea Nitrogen 65 mg/dL (9-16); Calcium 6.7 mg/dL (8.4-10.2); Carbon Dioxide 14 mmol/L (22-29); Chloride 117 mmol/L (96-108); Creatinine Clr Calc Pharmacy 14.8; Estimated Glomerular Filt Rate 10; Glucose Random 101 mg/dL (60-115); Magnesium 1.9 mg/dL (1.6-2.6); Phosphorus 6.6 mg/dL (2.7-4.5); Potassium 6.7 mmol/L (3.3-5.1); Sodium 139 mmol/L (135-145)
[2022-04-10 12:02] LABS: Glucose, Whole Blood 113 mg/dL (60-115)
[2022-04-10 12:33] LABS: Glucose, Whole Blood 137 mg/dL (60-115)
--- NOTE | 2022-04-10 12:53 | MHC.CM.PN ---
Pt presently intubated in ICU and unable to participate in CM assessment: Review of EMR notes no HCP on file. Call placed to pt's two dtrs on file, [facility] and [facility]: messages left for a callback to discuss d/c needs and pt's functional level prior to [facility] admission. CM to await callback.
--- NOTE | 2022-04-10 13:39 | W.PM.CCHP ---
Procedures Date of Service Date of Service: 04/10/22 Central Line Placement Left IJ: Central Line Comments: Left internal jugular double-lumen central venous dialysis catheter emergently placed for hemodialysis under ultrasound guidance and usual sterile conditions with no immediate complications. Line position verified on chest x-ray.
[2022-04-10] MEDS: vancomycin HCL 1,000 MG, vancomycin HCL 750 MG in 0.9 % Sodium Chloride 500 ML 267.5 MG IV (13:41)
[2022-04-10] MEDS: Sodium Bicarbonate 8.4% 50 MEQ/50 ML VIAL 100 MEQ IVPUSH (13:41)
--- NOTE | 2022-04-10 14:00 | P.CONNP_ITS ---
History of Present Illness Reason for Consult Consult date: 04/10/22 Reason for consult: LETHA on CKD, hyperkalemia, acidosis Chief Complaint Chief complaint: septic shock, acute respiratory failure History of Present Illness Narrative: History obtained from MR as pt is intubated, obtunded. Griselda is a 76 yo woman with DM and CKD stage 4 with baseline creat about 2.5 mg/dl, with prior issues of bladder outflow obstruction leading to bilateral hydronephrosis and LETHA in the recent past. She presents now in septic shock with oliguric LETHA, hyperkalemia and lactic acidosis. Despite 6 L volume resuscitation she remains oliguric, acidemic and hyperkalemic. A mahurkur was placed by Dr. Weathers and the dialysis nurse is on her way in. For her HTN and CKD she had been managed on AIME I prior to admission. Pt does have hx of nephrolithiasis as well as ELIAS; she is followed by Dr. Calhoun. She undertook a CT of abdomen today as she had complained of abd pain: no cause of abd pain was identified and there was no hydronephrosis noted. Review of Systems Review of Systems Yes unobtainable due to endotracheal tube, Unobtainable due to mental condition and Unobtainable due to mental status PMFSH Past Medical History Medical History Anxiety and depression Arthritis Asthma Atrial flutter Chronic kidney disease, stage 3 Chronic pain Diabetes mellitus High cholesterol History of myocardial infarction HTN (hypertension) Hyperglycemia Lateral malleolar fracture Limited mobility Multiple falls Myocardial infarction On anticoagulant therapy On beta lanette at home Paroxysmal atrial fibrillation Type 2 diabetes mellitus with unspecified complications Urgency incontinence Family History Family History Father No problems noted. Mother Diabetes High blood pressure Stomach cancer Surgical History Surgical History H/O neck surgery History of cataract extraction History of cystoscopy History of heart artery stent Hx of cholecystectomy Hx of colonoscopy Social History Social History Household Members: None Housing: Apartment Are you a primary home health aide caregiver to a significant other at home: No Do you presently have visiting nurse or other home services: Yes Alcohol intake: current Alcohol intake frequency: does not drink Patient Tobacco Use Status: Former Tobacco user Quit Date: 2005 Tobacco use type: Cigarette Years Smoked: 30-40 years Second Hand Smoke Exposure: No service: No Current occupational status: disabled Meds Allergies Allergy/AdvReac Type Severity Reaction Status Date / Time atorvastatin [ATORVASTATIN] Allergy Intermediate SWELLING Verified 03/13/22 20:48 morphine [MORPHINE] Allergy Intermediate RASH Verified 03/13/22 20:48 zolpidem [From AMBIEN] AdvReac Intermediate SLEEP WALKS Verified 03/13/22 20:48 Active Medications: Current Medications Chlorhexidine Gluconate (Chlorhexidine Gluc Oral Rinse 15 Ml Mouthwash) 15 ml BUCCAL Q8H [facility] Last Admin: 04/10/22 11:42 Dose: 15 ml Famotidine (Famotidine/Pf 20 Mg/2 Ml Vial) 20 mg IVPUSH DAILY [facility] Heparin Sodium (Porcine) (Heparin Sodium,Porcine 5,000 Unit/Ml Vial) 5,000 unit SUBCUT Q8H [facility] Last Admin: 04/10/22 11:40 Dose: 5,000 unit Norepinephrine Bitartrate (Levophed) 8 mg in 250 mls @ 0 mls/hr IV .Q0M [facility]; Protocol Last Titration: 04/10/22 12:45 Dose: 0.03 mcg/kg/min, 4.72 mls/hr Propofol (Diprivan) 1,000 mg in 100 mls @ 0 mls/hr IVCONT .Q0M [facility]; Protocol Last Titration: 04/10/22 12:10 Dose: 50 mcg/kg/min, 25.18 mls/hr Lactated Ringer's (Lr) 1,000 mls @ 999 mls/hr IV .Q1H1M [facility] Stop: 04/10/22 14:15 Last Admin: 04/10/22 13:42 Dose: 999 mls/hr Insulin Human Lispro (Insulin Lispro 100 Unit/Ml 3 Ml Vial) 0 unit SUBCUT Q6H [facility]; Protocol Last Admin: 04/10/22 12:39 Dose: Not Given Lactulose (Lactulose 20 Gm/30 Ml Solution) 30 gm PO BID [facility] Ondansetron HCl (Ondansetron Hcl 4 Mg/2 Ml Vial) 4 mg IVPUSH Q8H PRN PRN Reason: Nausea and Vomiting Sodium Chloride (0.9 % Sodium Chloride Flush 3 Ml Syringe) 3 ml IVFLUSH QSHIFT [facility] Last Admin: 04/10/22 08:21 Dose: 3 ml Home Medications Medication Instructions Recorded Confirmed Last Taken Type lancing device with lancets kit #1 ea 03/24/21 03/13/22 Unknown History ([facility] Lancing Device kit) metoprolol tartrate 25 mg tablet 25 mg PO BID 07/15/21 04/10/22 11/03/21 08:15 History quetiapine 300 mg tablet 150 mg PO BEDTIME PRN Insomnia 07/15/21 04/10/22 10/11/21 History albuterol sulfate 90 mcg/actuation 2 puff inhalation QID PRN 11/30/21 04/10/22 Unknown History aerosol inhaler Respiratory Distress duloxetine 30 mg capsule,delayed 30 mg PO DAILY 11/30/21 04/10/22 Unknown History release ferrous sulfate 325 mg (65 mg 325 mg PO DAILY 11/30/21 04/10/22 Unknown History iron) tablet fluoxetine 20 mg capsule 20 mg PO DAILY 11/30/21 04/10/22 Unknown History gabapentin 600 mg tablet 1 tab PO BEDTIME 01/11/22 04/10/22 Unknown History lisinopril 20 1 tab PO DAILY 04/10/22 04/10/22 Unknown History mg-hydrochlorothiazide 25 mg tablet Physical Exam Vital Signs: Last Vital Signs Temp 96.3 F L 04/10/22 11:00 Pulse 78 04/10/22 13:00 Resp 24 H 04/10/22 13:00 BP 140/53 H 04/10/22 13:00 Pulse Ox 99 04/10/22 13:00 O2 Del Method 04/10/22 13:00 FiO2 30 04/10/22 13:00 BMI result Body Mass Index 44.0 Const Other: Pt intubated and appears comfortable she is morbidly obese General: no acute distress and other ( Sedated on the vent) Nutritional Appearance: obese HEENT Other: Benign Eyes Sclerae: sclerae normal EOM: EOMs intact bilaterally Neck Other: No JVD, L IJ mahurkur in place Neck: Yes no lymphadenopathy, Yes trachea midline and Yes supple Chest Other: no rales or rhonchi Resp Auscultation: crackles ( mild bilateral) Cardio Other: LUSB systolic murmur RRR Jugular venous distension: no JVD Rate: regular rate Rhythm: regular rhythm Heart sounds: no gallops, no murmurs and no rubs GI Other: Obese and distended abdomen with hypoactive bowel sounds, tympanitic Neuro Other: nonfocal but pt not cooperative Extrem Other: 1 plus pretib edema bilaterally General: No clubbing, No cyanosis and Yes edema ( trace bilateral) Results Lab Results 04/10/22 11:19 04/10/22 11:19 Lab results: Chemistry 04/10/22 04/10/22 04/10/22 01:06 04:24 06:26 Sodium 140 141 141 Potassium 7.1 H* D 6.6 H* 6.2 H* Carbon Dioxide 17 L 15 L 14 L BUN 72 H 70 H 70 H Creatinine 4.57 H* 4.29 H* 4.33 H* Calcium 7.6 L D 7.4 L 7.2 L Phosphorus 04/10/22 04/10/22 11:19 11:19 Sodium 140 139 Potassium 6.7 H* 6.7 H* Carbon Dioxide 14 L 14 L BUN 64 H 65 H Creatinine 4.16 H* 4.16 H* Calcium 6.7 L D 6.7 L Phosphorus 6.6 H Hematology 04/10/22 04/10/22 01:06 11:19 WBC 6.5 6.4 Hgb 9.9 L 8.7 L Plt Count 358 272 Urinalysis 04/10/22 01:48 Urine Color Yellow Urine Appearance Turbid Urine pH 6.0 Ur Specific [place] 1.020 Urine Protein 100 (2+) H Urine Glucose (UA) Negative Urine Ketones Negative Urine Blood Large (3+) H Urine Nitrite Negative Ur Leukocyte Esterase Large (3+) H Urine RBC >20 H Urine WBC >50 H Ur Squamous Epith Cells 6-10 Hyaline Casts 11-20 Assessment and Plan (1) LETHA (acute kidney injury): Status: Acute Pt with LETHA in the setting of apparent septic shock, likely urosepsis source given hx of urinary retention and abnormal UA; oliguric, acidemic, hyperkalemic. Proceeding with acute HD (2) Acute hyperkalemia: Status: Acute Due to transcell shift in the setting of acidosis and LETHA while on AIME I (3) Metabolic acidosis: Status: Acute Both AG and nonAG: likely AG due to LETHA and lactic acidosis: check lactic acid NonAG due to LETHA and pyelonephritis (4) CKD (chronic kidney disease) stage 4, GFR 15-29 ml/min: Status: Acute Hx of both DM II and obstructive nephropathy: likely both contributing to CKD etiology as well as prior bouts of LETHA with incomplete recovery (5) Septic shock: Status: Acute Plan Proceed with dialysis today to correct acidosis and hyperkalemia; will run even today Assess need for dialysis tomorrow and daily Track lactic acid Rule out ketosis/betahydroxybutyrare Broad spectrum antibiotics : await cultures Reduce levaquine to q 48 hr dosing for GFR<10 Avoid vanc toxicity Time Spent With Patient Time: Total time managing care of this patient today ____ minutes. Procedures Date of Service Date of Service: 04/10/22
[2022-04-10] MEDS: propofoL 1,000 MG/100 ML VIAL 25.18 MG IVCONT ×4 (14:05→22:24)
--- NOTE | 2022-04-10 16:51 | PHA.MEDREC ---
Pharmacy Consult ? Medication Reconciliation Pharmacy has completed the medication reconciliation. Patient was intubated before I could talk to them. Called daughter which confirmed medications. Patient's daughter Viktoriya states that ezetimibe was stopped per MD because the patient's cholesterol was fine . Called [facility] to find out sulfamethaxazole dosing days (on catheter change days), however they do not see that on their record and cannot attest to it due to the primary nurse that takes care of the patient being gone for the weekend. [facility] will call pharmacy back at later time after getting in touch with primary nurse. Patient's daughter does claim, however, that patient is on sulfamethaxazole for cather changes.
[2022-04-10 18:12] LABS: Glucose, Whole Blood 133 mg/dL (60-115)
[2022-04-10 20:03] LABS: VBG Base Excess -3.7 mmol/L; VBG HCO3 18 mmol/L (22-26); VBG pCO2 24 mmHg; VBG pH 7.48 (7.32-7.43); VBG pO2 168 mmHg
[2022-04-10 20:04] LABS: Venous Blood Gas Refer to POC result
[2022-04-10 20:16] LABS: Anion Gap 16 (12-20); Blood Urea Nitrogen 29 mg/dL (9-16); Calcium 7.5 mg/dL (8.4-10.2); Carbon Dioxide 19 mmol/L (22-29); Chloride 107 mmol/L (96-108); Creatinine Clr Calc Pharmacy 29.8; Estimated Glomerular Filt Rate 23; Glucose Random 113 mg/dL (60-115); Potassium 4.1 mmol/L (3.3-5.1); Sodium 138 mmol/L (135-145)
[2022-04-10] MEDS: Lactulose 20 GM/30 ML SOLUTION 30 GM PO (21:06)
[2022-04-10 23:14] LABS: Glucose, Whole Blood 106 mg/dL (60-115)
[2022-04-11] VITALS (36 sets, daily range): BP systolic 82–173; BP diastolic 46–116; PULSE 57–88; RESP 12–25; TEMP 34.8–36.9; O2SAT 93–99; BMI 46.9
[2022-04-11] MEDS: propofoL 1,000 MG/100 ML VIAL 25.18 MG IVCONT ×5 (00:57→11:00)
[2022-04-11] MEDS: Heparin Sodium,Porcine 5,000 UNIT/ML VIAL 5000 UNIT SUBCUT ×3 (03:08→20:00)
[2022-04-11] MEDS: Chlorhexidine Gluc Oral Rinse 15 ML MOUTHWASH BUCCAL ×2 (03:08→11:00)
[2022-04-11] MEDS: fentaNYL citrate/PF 100 MCG/2 ML VIAL 50 MCG IVPUSH (04:47)
[2022-04-11 05:03] LABS: VBG Base Excess 3.7 mmol/L; VBG HCO3 26 mmol/L (22-26); VBG pCO2 32 mmHg; VBG pH 7.51 (7.32-7.43); VBG pO2 39 mmHg
[2022-04-11 05:05] LABS: Venous Blood Gas Refer to POC result
[2022-04-11 05:08] LABS: Glucose, Whole Blood 82 mg/dL (60-115)
[2022-04-11 05:09] LABS: MANUAL DIFF FLAG NO
[2022-04-11 05:12] LABS: Basophils Percent Auto 0.3 % (0-2); Eosinophils Absolute Auto 0.1 X10*3/uL (0.0-0.4); Eosinophils Percent Auto 1.3 % (0-4); Hematocrit 26.2 % (37.0-47.0); Hemoglobin 8.4 g/dl (12.0-16.0); Imm Gran Abs Auto 0.02 X10*3/uL (0.00-0.03); Imm Gran Pct Auto 0.3 % (0.0-0.4); Lymphocytes Absolute Auto 1.5 X10*3/uL (1.2-4.9); Lymphocytes Percent Auto 24.3 % (20-40); Mean Corpuscular HGB Conc 32.1 g/dl (31.0-35.0); Mean Corpuscular Hemoglobin 29.3 pg (27.0-33.0); Mean Corpuscular Volume 91.3 fL (80.0-98.0); Monocytes Absolute Auto 0.6 X10*3/uL (0.1-1.2); Monocytes Percent Auto 9.8 % (2-11); Neutrophils Absolute Auto 3.8 x10*3/uL (2.0-8.3); Platelet Count 265 X10*3/uL (160-400); Red Blood Count 2.87 X10*6/uL (4.20-5.50)
[2022-04-11 05:29] LABS: Alanine Aminotransferase 20 U/L (0-31); Albumin Level 3.1 g/dL (3.5-5.0); Alkaline Phosphatase 115 U/L (39-117); Anion Gap 15 (12-20); Aspartate Amino Transferase 24 U/L (5-31); Bilirubin Total 0.3 mg/dL (0.0-1.0); Blood Urea Nitrogen 31 mg/dL (9-16); Calcium 7.7 mg/dL (8.4-10.2); Carbon Dioxide 20 mmol/L (22-29); Chloride 108 mmol/L (96-108); Creatinine Clr Calc Pharmacy 25.7; Estimated Glomerular Filt Rate 19; Glucose Random 81 mg/dL (60-115); Magnesium 1.7 mg/dL (1.6-2.6); Phosphorus 3.4 mg/dL (2.7-4.5); Potassium 4.7 mmol/L (3.3-5.1); Sodium 138 mmol/L (135-145); Total Protein 5.9 g/dL (6.5-8.0)
[2022-04-11] MEDS: Dextrose 50 % 25 GM/50 ML SYRINGE IVPUSH (05:55)
[2022-04-11 06:38] LABS: Glucose, Whole Blood 157 mg/dL (60-115)
[2022-04-11] MEDS: 0.9 % Sodium Chloride Flush 3 ML SYRINGE IVFLUSH ×3 (07:59→23:49)
[2022-04-11] MEDS: Famotidine/PF 20 MG/2 ML VIAL IVPUSH (07:59)
[2022-04-11] MEDS: Lactulose 20 GM/30 ML SOLUTION 30 GM PO (07:59)
--- NOTE | 2022-04-11 09:42 | PM.CCPN ---
Subjective Subjective Date of Service: 04/11/22 Interval History: 76-year-old lady with underlying history obesity, diabetes mellitus, CAD with prior myocardial infarction, a flutter on anticoagulation with Eliquis, urinary incontinence with multiple prior UTI's including with an ESBL producing organism, CKD stage 3 admitted on 04/10/2022 with 2 week history of worsening bilateral abdominal pain. On ER evaluation patient with acute renal failure, significant metabolic acidosis, with development of hypertension requiring initiation of vasopressor support and respiratory distress requiring intubation. Started on empiric antibiotics and Levophed and admitted to intensive care unit. CT abdomen/ pelvis with no evidence of bowel obstruction.Patient with worsening hyperkalemia and oliguria despite IV fluid challenge. Hemodialysis catheter placed and patient dialyzed With resolution of hyperkalemia and acidosis. No events overnight. Critical Care Time (minutes): 45 Physical Exam Vital Signs: Vital Signs: Last Vital Signs Temp 97.7 F 04/11/22 09:00 Pulse 70 04/11/22 09:00 Resp 25 H 04/11/22 09:00 BP 119/63 04/11/22 09:00 Pulse Ox 99 04/11/22 09:00 O2 Del Method 04/11/22 09:00 FiO2 30 04/11/22 09:00 BMI result Body Mass Index 46.9 Const: General: no acute distress and other ( Sedated on the vent) Nutritional Appearance: obese Eyes: Sclerae: sclerae normal EOM: EOMs intact bilaterally Neck: Neck: Yes no lymphadenopathy, Yes trachea midline and Yes supple Resp: Auscultation: clear to auscultation bilaterally Cardio: Rate: regular rate Rhythm: regular rhythm Heart sounds: no gallops, no murmurs and no rubs GI: Palpation (GI): Soft to palpation and Other GI palpation findings present ( Nontender) Auscultation: normal bowel sounds Extrem: General: No clubbing, No cyanosis and Yes edema ( trace bilateral) Objective Data Labs 04/11/22 04:44 04/11/22 04:44 Labs: Laboratory Results - last 24 hr 04/10/22 04/10/22 04/10/22 11:19 11:19 11:19 WBC 6.4 RBC 2.92 L Hgb 8.7 L Hct 28.9 L MCV 99.0 H MCH 29.8 MCHC 30.1 L RDW 16.5 H Plt Count 272 MPV 9.9 Immature Gran % (Auto) 0.5 H Neut % (Auto) 85.7 H Lymph % (Auto) 6.1 L [place] % (Auto) 7.2 Eos % (Auto) 0.2 Baso % (Auto) 0.3 Lymph # (Auto) 0.4 L [place] # (Auto) 0.5 Eos # (Auto) 0.0 Baso # (Auto) 0.0 Abs Immat Gran (auto) 0.03 Absolute Neuts (auto) 5.5 Absolute Nucleated RBC 0.000 Nucleated RBC % (auto) 0.0 VBG pH VBG pCO2 VBG pO2 VBG HCO3 VBG O2 Saturation VBG Base Excess Sodium 140 Potassium 6.7 H* Chloride 117 H Carbon Dioxide 14 L Anion Gap 16 BUN 64 H Creatinine 4.16 H* Estim Creat Clear Calc 14.8 Estimated GFR 10 POC Glucose Random Glucose 99 Lactic Acid 0.7 Calcium 6.7 L D Phosphorus Magnesium Total Bilirubin AST ALT Alkaline Phosphatase Total Protein Albumin 04/10/22 04/10/22 04/10/22 11:19 11:35 11:59 WBC RBC Hgb Hct MCV MCH MCHC RDW Plt Count MPV Immature Gran % (Auto) Neut % (Auto) Lymph % (Auto) [place] % (Auto) Eos % (Auto) Baso % (Auto) Lymph # (Auto) [place] # (Auto) Eos # (Auto) Baso # (Auto) Abs Immat Gran (auto) Absolute Neuts (auto) Absolute Nucleated RBC Nucleated RBC % (auto) VBG pH 7.14 L* VBG pCO2 35 VBG pO2 65 VBG HCO3 12 L VBG O2 Saturation 92.0 VBG Base Excess -15.2 Sodium 139 Potassium 6.7 H* Chloride 117 H Carbon Dioxide 14 L Anion Gap 15 BUN 65 H Creatinine 4.16 H* Estim Creat Clear Calc 14.8 Estimated GFR 10 POC Glucose 113 Random Glucose 101 Lactic Acid Calcium 6.7 L Phosphorus 6.6 H Magnesium 1.9 Total Bilirubin AST ALT Alkaline Phosphatase Total Protein Albumin 3.2 L 04/10/22 04/10/22 04/10/22 12:30 18:07 19:50 WBC RBC Hgb Hct MCV MCH MCHC RDW Plt Count MPV Immature Gran % (Auto) Neut % (Auto) Lymph % (Auto) [place] % (Auto) Eos % (Auto) Baso % (Auto) Lymph # (Auto) [place] # (Auto) Eos # (Auto) Baso # (Auto) Abs Immat Gran (auto) Absolute Neuts (auto) Absolute Nucleated RBC Nucleated RBC % (auto) VBG pH VBG pCO2 VBG pO2 VBG HCO3 VBG O2 Saturation VBG Base Excess Sodium 138 Potassium 4.1 D Chloride 107 Carbon Dioxide 19 L Anion Gap 16 BUN 29 H Creatinine 2.12 H Estim Creat Clear Calc 29.8 Estimated GFR 23 POC Glucose 137 H 133 H Random Glucose 113 Lactic Acid Calcium 7.5 L D Phosphorus Magnesium Total Bilirubin AST ALT Alkaline Phosphatase Total Protein Albumin 04/10/22 04/10/22 04/11/22 19:56 23:09 04:44 WBC 6.0 RBC 2.87 L Hgb 8.4 L Hct 26.2 L MCV 91.3 D MCH 29.3 MCHC 32.1 RDW 16.0 Plt Count 265 MPV 10.0 Immature Gran % (Auto) 0.3 Neut % (Auto) 64.0 Lymph % (Auto) 24.3 [place] % (Auto) 9.8 Eos % (Auto) 1.3 Baso % (Auto) 0.3 Lymph # (Auto) 1.5 [place] # (Auto) 0.6 Eos # (Auto) 0.1 Baso # (Auto) 0.0 Abs Immat Gran (auto) 0.02 Absolute Neuts (auto) 3.8 Absolute Nucleated RBC 0.000 Nucleated RBC % (auto) 0.0 VBG pH 7.48 H VBG pCO2 24 VBG pO2 168 VBG HCO3 18 L VBG O2 Saturation 99.0 VBG Base Excess -3.7 Sodium Potassium Chloride Carbon Dioxide Anion Gap BUN Creatinine Estim Creat Clear Calc Estimated GFR POC Glucose 106 Random Glucose Lactic Acid Calcium Phosphorus Magnesium Total Bilirubin AST ALT Alkaline Phosphatase Total Protein Albumin 04/11/22 04/11/22 04/11/22 04:44 04:56 05:04 WBC RBC Hgb Hct MCV MCH MCHC RDW Plt Count MPV Immature Gran % (Auto) Neut % (Auto) Lymph % (Auto) [place] % (Auto) Eos % (Auto) Baso % (Auto) Lymph # (Auto) [place] # (Auto) Eos # (Auto) Baso # (Auto) Abs Immat Gran (auto) Absolute Neuts (auto) Absolute Nucleated RBC Nucleated RBC % (auto) VBG pH 7.51 H VBG pCO2 32 VBG pO2 39 VBG HCO3 26 VBG O2 Saturation 69.0 VBG Base Excess 3.7 Sodium 138 Potassium 4.7 Chloride 108 Carbon Dioxide 20 L Anion Gap 15 BUN 31 H Creatinine 2.50 H Estim Creat Clear Calc 25.7 Estimated GFR 19 POC Glucose 82 Random Glucose 81 Lactic Acid Calcium 7.7 L Phosphorus 3.4 Magnesium 1.7 Total Bilirubin 0.3 AST 24 ALT 20 Alkaline Phosphatase 115 Total Protein 5.9 L Albumin 3.1 L 04/11/22 06:36 WBC RBC Hgb Hct MCV MCH MCHC RDW Plt Count MPV Immature Gran % (Auto) Neut % (Auto) Lymph % (Auto) [place] % (Auto) Eos % (Auto) Baso % (Auto) Lymph # (Auto) [place] # (Auto) Eos # (Auto) Baso # (Auto) Abs Immat Gran (auto) Absolute Neuts (auto) Absolute Nucleated RBC Nucleated RBC % (auto) VBG pH VBG pCO2 VBG pO2 VBG HCO3 VBG O2 Saturation VBG Base Excess Sodium Potassium Chloride Carbon Dioxide Anion Gap BUN Creatinine Estim Creat Clear Calc Estimated GFR POC Glucose 157 H Random Glucose Lactic Acid Calcium Phosphorus Magnesium Total Bilirubin AST ALT Alkaline Phosphatase Total Protein Albumin Microbiology Microbiology Results: Microbiology 04/10/22 Unknown Urine Catheterized - Solis Catheter Urine Culture - Preliminary Culture in progress. 04/10/22 01:05 Blood - Venous Blood Culture - Preliminary No growth after 24 hours. 04/10/22 00:55 Blood - Venous Blood Culture - Preliminary No growth after 24 hours. Progress Note: A&P Assessment and plan (1) CKD (chronic kidney disease) stage 4, GFR 15-29 ml/min: Status: Acute (2) Metabolic acidosis: Status: Acute (3) CAD (coronary artery disease): Status: Acute (4) LETHA (acute kidney injury): Status: Acute (5) Encephalopathy: Status: Acute (6) Acute respiratory failure: Status: Acute (7) Diabetes mellitus: Status: Acute (8) Atrial flutter: Status: Acute Plan Assessment: 76-year-old lady admitted with septic shock and acute respiratory failure with acute renal failure and hyperkalemia, likely secondary to gram-negative acute UTI Plan: Neuro: metabolic encephalopathy likely secondary to septic shock versus as acute renal failure Cardiac: septic shock requiring vasopressor support, continue to titrate off as tolerated. Underlying history of AFlutter on anticoagulation and coronary artery disease. Pulmonary: Acute respiratory failure secondary to septic shock now requiring ventilatory support, continue to titrate off as tolerated. Renal: Acute renal failure, likely secondary to septic shock. initiated on hemodialysis. Hyperkalemia and metabolic acidosis resolved. Nephrology service care appreciated. Continue to monitor renal indices and urine output. Endo: No acute issues. Underlying diabetes mellitus. GI: CT abdomen/pelvis with no evidence of obstruction. No concern for bowel ischemia at this time, continue to monitor clinically. Several bowel movements overnight. ID: Likely septic shock secondary to Gram-negative UTI based on prior culture results. Empirically covered with meropenem and vancomycin. Cultures are pending. Heme/Onc: No acute issues. Psych: No acute issues. Miscellaneous: No acute issues. Prophylaxis: Heparin, famotidine Diet: nothing by mouth Critical care time spent: 45 minutes Quality Stroke Does the patient have a stroke diagnosis?: No VTE Prior VTE?: No VTE Risk Level:: Medical - moderate - high VTE Device Contraindication: Treatment Not Indicated VTE Drug Contraindication: N/A - Med Ordered
--- NOTE | 2022-04-11 09:55 | P.CDIC_ITS ---
CDI Concurrent Query Documentation Clarification: PHYSICIAN'S DOCUMENTATION REQUEST Date of Query: 04/11/22 0955 Patient Name: Shweta Woodard Admit Date: 04/10/22 Dear Doctor, A review of the medical record indicates additional documentation may be needed. Please review below and update the documentation accordingly. Risk Factors/Clinical Indicators/Treatments Nursing notes Height and Weight - BMI 46.9 Extreme obesity Class III If possible, please provide an associated diagnosis related to the abnormal BMI, such as: For a BMI >= 40: * Obesity * Due to excess calories * Drug induced * Due to other cause * Severe or Morbid Obesity * With alveolar hypoventilation * Without alveolar hypoventilation Or: * BMI is not significant * Other (please specify) * Unable to determine Use of terms such as suspected, likely, concern for, or probable (associated with a specific diagnosis that is being evaluated, monitored, or treated as if it exists) are acceptable and can be coded in the inpatient setting, when documented at the time of discharge. Thank you, Ting Kennedy [facility], CDIS Extension: [phone] Please use your independent medical judgment in providing your response. THIS QUERY IS PART OF THE PERMANENT MEDICAL RECORD
--- NOTE | 2022-04-11 09:55 | MHC.CDI.CONC ---
CDI Concurrent Query Documentation Clarification: PHYSICIAN'S DOCUMENTATION REQUEST Date of Query: 04/11/22 0955 Patient Name: Shweta Woodard Admit Date: 04/10/22 Dear Doctor, A review of the medical record indicates additional documentation may be needed. Please review below and update the documentation accordingly. Risk Factors/Clinical Indicators/Treatments Nursing notes Height and Weight - BMI 46.9 Extreme obesity Class III If possible, please provide an associated diagnosis related to the abnormal BMI, such as: For a BMI >= 40: Obesity Due to excess calories Drug induced Due to other cause Severe or Morbid Obesity With alveolar hypoventilation Without alveolar hypoventilation Or: BMI is not significant Other (please specify) Unable to determine Use of terms such as suspected, likely, concern for, or probable (associated with a specific diagnosis that is being evaluated, monitored, or treated as if it exists) are acceptable and can be coded in the inpatient setting, when documented at the time of discharge. Thank you, Ting Kennedy [facility], CDIS Extension: [phone] Please use your independent medical judgment in providing your response. THIS QUERY IS PART OF THE PERMANENT MEDICAL RECORD
[2022-04-11 11:14] LABS: Glucose, Whole Blood 94 mg/dL (60-115)
--- NOTE | 2022-04-11 11:48 | P.CDIC_ITS ---
CDI Concurrent Query Documentation Clarification: PHYSICIAN'S DOCUMENTATION REQUEST Date of Query: 04/11/22 1149 Patient Name: Shweta Woodard Admit Date: 04/10/22 Dear Doctor, A review of the medical record indicates additional documentation may be needed. Please review below and update the documentation accordingly Risk Factors/Clinical Indicators/Treatments ED: 04/10 - Altered, patient has chronic indwelling belcher catheter. Patient has known to be prone to UTI's. IV fuids, Levaquin Please clarify the relationship between these conditions: Urinary tract infection due to/associated with chronic indwelling belcher catheter * Yes, [ ] is related to / associated with / due to [ ] * No, [ ] is not related to / associated with / due to [ ] * Unable to determine Use of terms such as suspected, likely, concern for, or probable (associated with a specific diagnosis that is being evaluated, monitored, or treated as if it exists) are acceptable and can be coded in the inpatient setting, when documented at the time of discharge. Thank you, Ting Kennedy [facility], CDIS Extension: [phone] Please use your independent medical judgment in providing your response. THIS QUERY IS PART OF THE PERMANENT MEDICAL RECORD Provider Response: Other ( UTI likely secondary to chronic Belcher, present on admission.) Other Diagnosis: UTI likely secondary to chronic Belcher , present on admission.
--- NOTE | 2022-04-11 12:05 | PM.PNNEP ---
Subjective Subjective Date of Service: 04/11/22 Interval history: Seen and examined, danni noted Currently on HD Physical Exam Vital Signs: Vital Signs: Last Vital Signs Temp 98.1 F 04/11/22 11:00 Pulse 79 04/11/22 11:02 Resp 13 04/11/22 11:00 BP 150/78 H 04/11/22 11:02 Pulse Ox 99 04/11/22 11:00 O2 Del Method 04/11/22 11:00 FiO2 30 04/11/22 11:57 BMI result Body Mass Index 46.9 Const: Other: Pt intubated and appears comfortable she is morbidly obese General: no acute distress and other ( Sedated on the vent) Nutritional Appearance: obese HEENT: Other: Benign Eyes: Sclerae: sclerae normal EOM: EOMs intact bilaterally Neck: Other: No JVD, L IJ mahurkur in place Neck: Yes no lymphadenopathy, Yes trachea midline and Yes supple Chest: Other: no rales or rhonchi Resp: Auscultation: crackles ( mild bilateral) Cardio: Other: LUSB systolic murmur RRR Jugular venous distension: no JVD Rate: regular rate Rhythm: regular rhythm Heart sounds: no gallops, no murmurs and no rubs GI: Other: Obese and distended abdomen with hypoactive bowel sounds, tympanitic Neuro: Other: nonfocal but pt not cooperative Extrem: Other: 1 plus pretib edema bilaterally General: No clubbing, No cyanosis and Yes edema ( trace bilateral) Objective Data Labs 04/11/22 04:44 04/11/22 04:44 Labs: Laboratory Results - last 24 hr 04/10/22 04/10/22 04/10/22 12:30 18:07 19:50 WBC RBC Hgb Hct MCV MCH MCHC RDW Plt Count MPV Immature Gran % (Auto) Neut % (Auto) Lymph % (Auto) [place] % (Auto) Eos % (Auto) Baso % (Auto) Lymph # (Auto) [place] # (Auto) Eos # (Auto) Baso # (Auto) Abs Immat Gran (auto) Absolute Neuts (auto) Absolute Nucleated RBC Nucleated RBC % (auto) VBG pH VBG pCO2 VBG pO2 VBG HCO3 VBG O2 Saturation VBG Base Excess Sodium 138 Potassium 4.1 D Chloride 107 Carbon Dioxide 19 L Anion Gap 16 BUN 29 H Creatinine 2.12 H Estim Creat Clear Calc 29.8 Estimated GFR 23 POC Glucose 137 H 133 H Random Glucose 113 Calcium 7.5 L D Phosphorus Magnesium Total Bilirubin AST ALT Alkaline Phosphatase Total Protein Albumin 04/10/22 04/10/22 04/11/22 19:56 23:09 04:44 WBC 6.0 RBC 2.87 L Hgb 8.4 L Hct 26.2 L MCV 91.3 D MCH 29.3 MCHC 32.1 RDW 16.0 Plt Count 265 MPV 10.0 Immature Gran % (Auto) 0.3 Neut % (Auto) 64.0 Lymph % (Auto) 24.3 [place] % (Auto) 9.8 Eos % (Auto) 1.3 Baso % (Auto) 0.3 Lymph # (Auto) 1.5 [place] # (Auto) 0.6 Eos # (Auto) 0.1 Baso # (Auto) 0.0 Abs Immat Gran (auto) 0.02 Absolute Neuts (auto) 3.8 Absolute Nucleated RBC 0.000 Nucleated RBC % (auto) 0.0 VBG pH 7.48 H VBG pCO2 24 VBG pO2 168 VBG HCO3 18 L VBG O2 Saturation 99.0 VBG Base Excess -3.7 Sodium Potassium Chloride Carbon Dioxide Anion Gap BUN Creatinine Estim Creat Clear Calc Estimated GFR POC Glucose 106 Random Glucose Calcium Phosphorus Magnesium Total Bilirubin AST ALT Alkaline Phosphatase Total Protein Albumin 04/11/22 04/11/22 04/11/22 04:44 04:56 05:04 WBC RBC Hgb Hct MCV MCH MCHC RDW Plt Count MPV Immature Gran % (Auto) Neut % (Auto) Lymph % (Auto) [place] % (Auto) Eos % (Auto) Baso % (Auto) Lymph # (Auto) [place] # (Auto) Eos # (Auto) Baso # (Auto) Abs Immat Gran (auto) Absolute Neuts (auto) Absolute Nucleated RBC Nucleated RBC % (auto) VBG pH 7.51 H VBG pCO2 32 VBG pO2 39 VBG HCO3 26 VBG O2 Saturation 69.0 VBG Base Excess 3.7 Sodium 138 Potassium 4.7 Chloride 108 Carbon Dioxide 20 L Anion Gap 15 BUN 31 H Creatinine 2.50 H Estim Creat Clear Calc 25.7 Estimated GFR 19 POC Glucose 82 Random Glucose 81 Calcium 7.7 L Phosphorus 3.4 Magnesium 1.7 Total Bilirubin 0.3 AST 24 ALT 20 Alkaline Phosphatase 115 Total Protein 5.9 L Albumin 3.1 L 04/11/22 04/11/22 06:36 11:11 WBC RBC Hgb Hct MCV MCH MCHC RDW Plt Count MPV Immature Gran % (Auto) Neut % (Auto) Lymph % (Auto) [place] % (Auto) Eos % (Auto) Baso % (Auto) Lymph # (Auto) [place] # (Auto) Eos # (Auto) Baso # (Auto) Abs Immat Gran (auto) Absolute Neuts (auto) Absolute Nucleated RBC Nucleated RBC % (auto) VBG pH VBG pCO2 VBG pO2 VBG HCO3 VBG O2 Saturation VBG Base Excess Sodium Potassium Chloride Carbon Dioxide Anion Gap BUN Creatinine Estim Creat Clear Calc Estimated GFR POC Glucose 157 H 94 Random Glucose Calcium Phosphorus Magnesium Total Bilirubin AST ALT Alkaline Phosphatase Total Protein Albumin Microbiology Microbiology Results: Microbiology 04/10/22 Unknown Urine Catheterized - [facility] Catheter Urine Culture - Preliminary Culture in progress. 04/10/22 01:05 Blood - Venous Blood Culture - Preliminary No growth after 24 hours. 04/10/22 00:55 Blood - Venous Blood Culture - Preliminary No growth after 24 hours. Procedures Date of Service Date of Service: 04/11/22 Assessment & Plan Assessment and plan (1) LETHA (acute kidney injury): Status: Acute Assessment and Plan: Pt with LETHA in the setting of apparent septic shock, likely urosepsis source given hx of urinary retention and abnormal UA; oliguric, acidemic, hyperkalemic. Proceeding with acute HD (2) Acute hyperkalemia: Status: Acute Assessment and Plan: Due to transcell shift in the setting of acidosis and LETHA while on AIME I (3) Metabolic acidosis: Status: Acute (4) CKD (chronic kidney disease) stage 4, GFR 15-29 ml/min: Status: Acute Assessment and Plan: Hx of both DM II and obstructive nephropathy: likely both contributing to CKD etiology as well as prior bouts of LETHA with incomplete recovery (5) Septic shock: Status: Acute Plan - Oliguric LETHA c/w sepsis asoc ATN with incr UOP - Sepsis - CKD 3: BSL SCr 2.0 range - recurrent LETHA events REC: HD today abd reassess tomorrow for ? need furhter MOLDER FITTING, avoid NToxins will follow w team D/W ICU team Time Spent With Patient Time: Total time managing care of this patient today ____ minutes. Progress Note: Quality Stroke Does the patient have a stroke diagnosis?: No
[2022-04-11] MEDS: vancomycin HCL 1,000 MG in 0.9 % Sodium Chloride 250 ML 270 MG IV (13:27)
[2022-04-11 16:10] LABS: Glucose, Whole Blood 104 mg/dL (60-115)
--- NOTE | 2022-04-11 16:38 | MHC.CM.PN ---
Spoke with pt's dtr Batool who states pt resides alone with 24/7 family support and [employer] hours. Pt has a w/c, walker and adaptive equipment in her apt. Batool states pt has a VNA for skilled weekly visits but cannot recall the agency name. She will inquire and call CM back. Batool requests BLS transport to home. HCP copy requested: Vax x2. CM to follow for d/c planning needs/changes.
[2022-04-11 19:59] LABS: Glucose, Whole Blood 102 mg/dL (60-115)
[2022-04-11 21:11] LABS: Glucose, Whole Blood 104 mg/dL (60-115)
[2022-04-12] VITALS (14 sets, daily range): BP systolic 93–152; BP diastolic 54–85; PULSE 88–122; RESP 9–35; TEMP 36.1–37.7; O2SAT 94–98; BMI 44.6
[2022-04-12] MEDS: QUEtiapine Fumarate 50 MG TABLET 150 MG PO (00:36)
[2022-04-12] MEDS: Heparin Sodium,Porcine 5,000 UNIT/ML VIAL 5000 UNIT SUBCUT (03:23)
--- NOTE | 2022-04-12 04:02 | PC.NURSE ---
Addendum entered by Raghu Mckeon RN 04/12/22 04:59: REVERTED TO NSR HR 94 5AM Original Note: CARE ASSUMED 23;15..AWAKE..ALERT..RESPIRATIONS EASY...RODRIGUEZ DRAINING 100-150 CC/HR SEDIMENTED URINE..C/O INABILITY TO SLEEP...SEROQUEL 150 MG PO X1 GIVEN PER ICU PA AFTER REVIEWING MED REC...NSR AT HS..REVERTED TO ATRIAL FIB HR 100'S-110'S..ASYMPTOMATIC...PMH PAROXYSMAL ATRIAL FIB..NO RX AT PRESENT PER PA UNLESS SUSTAINED HR 120'S-130'S..RESTFUL...NO COMPLAINTS
[2022-04-12 04:54] LABS: VBG Base Excess -3.3 mmol/L; VBG HCO3 21 mmol/L (22-26); VBG pCO2 35 mmHg; VBG pH 7.38 (7.32-7.43); VBG pO2 49 mmHg
[2022-04-12 04:56] LABS: Venous Blood Gas Refer to POC result
[2022-04-12 05:23] LABS: MANUAL DIFF FLAG NO
[2022-04-12 05:32] LABS: Basophils Percent Auto 0.5 % (0-2); Eosinophils Absolute Auto 0.2 X10*3/uL (0.0-0.4); Eosinophils Percent Auto 2.9 % (0-4); Hematocrit 28.5 % (37.0-47.0); Hemoglobin 9.1 g/dl (12.0-16.0); Imm Gran Abs Auto 0.02 X10*3/uL (0.00-0.03); Imm Gran Pct Auto 0.3 % (0.0-0.4); Lymphocytes Absolute Auto 1.8 X10*3/uL (1.2-4.9); Lymphocytes Percent Auto 27.5 % (20-40); Mean Corpuscular HGB Conc 31.9 g/dl (31.0-35.0); Mean Corpuscular Hemoglobin 29.8 pg (27.0-33.0); Mean Corpuscular Volume 93.4 fL (80.0-98.0); Mean Platelet Volume 10.4 fL (9.4-12.3); Monocytes Absolute Auto 0.9 X10*3/uL (0.1-1.2); Neutrophils Absolute Auto 3.6 x10*3/uL (2.0-8.3); Neutrophils Percent Auto 54.8 % (45-73); Platelet Count 254 X10*3/uL (160-400); Red Blood Count 3.05 X10*6/uL (4.20-5.50); Red Cell Distribution Width 16.1 % (11.0-16.0); White Blood Count 6.5 X10*3/uL (4.8-10.8)
[2022-04-12 05:46] LABS: Albumin Level 3.1 g/dL (3.5-5.0); Anion Gap 14 (12-20); Blood Urea Nitrogen 14 mg/dL (9-16); Carbon Dioxide 23 mmol/L (22-29); Chloride 105 mmol/L (96-108); Creatinine Clr Calc Pharmacy 37.1; Estimated Glomerular Filt Rate 30; Glucose Random 84 mg/dL (60-115); Magnesium 1.8 mg/dL (1.6-2.6); Phosphorus 3.8 mg/dL (2.7-4.5); Potassium 4.1 mmol/L (3.3-5.1); Sodium 138 mmol/L (135-145)
[2022-04-12 07:24] LABS: Glucose, Whole Blood 97 mg/dL (60-115)
[2022-04-12] MEDS: 0.9 % Sodium Chloride Flush 3 ML SYRINGE IVFLUSH ×2 (08:38→15:32)
--- NOTE | 2022-04-12 09:39 | PM.CCPN ---
Subjective Subjective Date of Service: 04/12/22 Interval History: 76-year-old lady with underlying history obesity, diabetes mellitus, CAD with prior myocardial infarction, a flutter on anticoagulation with Eliquis, urinary incontinence with multiple prior UTI's including with an ESBL producing organism, CKD stage 3 admitted on 04/10/2022 with 2 week history of worsening bilateral abdominal pain. On ER evaluation patient with acute renal failure, significant metabolic acidosis, with development of hypertension requiring initiation of vasopressor support and respiratory distress requiring intubation. Started on empiric antibiotics and Levophed and admitted to intensive care unit. CT abdomen/ pelvis with no evidence of bowel obstruction.Patient with worsening hyperkalemia and oliguria despite IV fluid challenge. Hemodialysis catheter placed and patient dialyzed with resolution of hyperkalemia and acidosis. extubated uneventfully on 04/11/2022. Urine output improving. No events overnight. Patient pulled out her hemodialysis catheter this a.m.. Critical Care Time (minutes): 0 Physical Exam Vital Signs: Vital Signs: Last Vital Signs Temp 97.0 F 04/12/22 08:00 Pulse 101 H 04/12/22 09:00 Resp 13 04/12/22 09:00 BP 123/67 04/12/22 09:00 Pulse Ox 97 04/12/22 09:00 O2 Del Method 04/12/22 09:00 O2 Flow Rate 1 04/11/22 14:00 FiO2 30 04/11/22 13:39 BMI result Body Mass Index 44.6 Const: General: no acute distress, alert and awake Eyes: Sclerae: sclerae normal EOM: EOMs intact bilaterally Neck: Neck: Yes no lymphadenopathy, Yes trachea midline and Yes supple Resp: Effort & Inspection: normal respiratory effort and no respiratory distress Auscultation: clear to auscultation bilaterally Cardio: Rate: regular rate Rhythm: regular rhythm Heart sounds: no gallops, no murmurs and no rubs GI: Palpation (GI): Soft to palpation and Other GI palpation findings present ( Nontender) Auscultation: normal bowel sounds Extrem: General: Yes no pedal edema, No clubbing and No cyanosis Objective Data Labs 04/12/22 04:50 04/12/22 04:50 Labs: Laboratory Results - last 24 hr 04/11/22 04/11/22 04/11/22 11:11 16:06 19:55 WBC RBC Hgb Hct MCV MCH MCHC RDW Plt Count MPV Immature Gran % (Auto) Neut % (Auto) Lymph % (Auto) [place] % (Auto) Eos % (Auto) Baso % (Auto) Lymph # (Auto) [place] # (Auto) Eos # (Auto) Baso # (Auto) Abs Immat Gran (auto) Absolute Neuts (auto) Absolute Nucleated RBC Nucleated RBC % (auto) VBG pH VBG pCO2 VBG pO2 VBG HCO3 VBG O2 Saturation VBG Base Excess Sodium Potassium Chloride Carbon Dioxide Anion Gap BUN Creatinine Estim Creat Clear Calc Estimated GFR POC Glucose 94 104 102 Random Glucose Calcium Phosphorus Magnesium Albumin 04/11/22 04/12/22 04/12/22 21:07 04:47 04:50 WBC RBC Hgb Hct MCV MCH MCHC RDW Plt Count MPV Immature Gran % (Auto) Neut % (Auto) Lymph % (Auto) [place] % (Auto) Eos % (Auto) Baso % (Auto) Lymph # (Auto) [place] # (Auto) Eos # (Auto) Baso # (Auto) Abs Immat Gran (auto) Absolute Neuts (auto) Absolute Nucleated RBC Nucleated RBC % (auto) VBG pH 7.38 VBG pCO2 35 VBG pO2 49 VBG HCO3 21 L VBG O2 Saturation 78.0 VBG Base Excess -3.3 Sodium 138 Potassium 4.1 Chloride 105 Carbon Dioxide 23 Anion Gap 14 BUN 14 Creatinine 1.68 H Estim Creat Clear Calc 37.1 Estimated GFR 30 POC Glucose 104 Random Glucose 84 Calcium 8.0 L Phosphorus 3.8 Magnesium 1.8 Albumin 3.1 L 04/12/22 04/12/22 04:50 07:22 WBC 6.5 RBC 3.05 L Hgb 9.1 L Hct 28.5 L MCV 93.4 MCH 29.8 MCHC 31.9 RDW 16.1 H Plt Count 254 MPV 10.4 Immature Gran % (Auto) 0.3 Neut % (Auto) 54.8 Lymph % (Auto) 27.5 [place] % (Auto) 14.0 H Eos % (Auto) 2.9 Baso % (Auto) 0.5 Lymph # (Auto) 1.8 [place] # (Auto) 0.9 Eos # (Auto) 0.2 Baso # (Auto) 0.0 Abs Immat Gran (auto) 0.02 Absolute Neuts (auto) 3.6 Absolute Nucleated RBC 0.000 Nucleated RBC % (auto) 0.0 VBG pH VBG pCO2 VBG pO2 VBG HCO3 VBG O2 Saturation VBG Base Excess Sodium Potassium Chloride Carbon Dioxide Anion Gap BUN Creatinine Estim Creat Clear Calc Estimated GFR POC Glucose 97 Random Glucose Calcium Phosphorus Magnesium Albumin Microbiology Microbiology Results: Microbiology 04/10/22 01:05 Blood - Venous Blood Culture - Preliminary No growth after 48 hours. 04/10/22 00:55 Blood - Venous Blood Culture - Preliminary No growth after 48 hours. 04/10/22 Unknown Urine Catheterized - [facility] Catheter Urine Culture - Preliminary Culture in progress. Progress Note: A&P Assessment and plan (1) CKD (chronic kidney disease) stage 4, GFR 15-29 ml/min: Status: Acute (2) CAD (coronary artery disease): Status: Acute (3) Diabetes mellitus: Status: Acute (4) Acute UTI: Status: Acute (5) History of myocardial infarction: Status: Acute (6) Atrial flutter: Status: Acute Plan Assessment: 76-year-old lady admitted with septic shock and acute respiratory failure with acute renal failure and hyperkalemia, likely secondary to gram-negative acute UTI Plan: Neuro: metabolic encephalopathy likely secondary to septic shock versus as acute renal failure , resolved. Cardiac: septic shock , resolved. Underlying history of AFlutter on anticoagulation and coronary artery disease. Pulmonary: Acute respiratory failure secondary to septic shock now requiring ventilatory support, resolved. Extubated 04/11/2022. Renal: Acute renal failure, likely secondary to septic shock/UTI. Initially required hemodialysis. Hyperkalemia and metabolic acidosis resolved. urine output improved. Nephrology service care appreciated. Continue to monitor renal indices and urine output. Endo: No acute issues. Underlying diabetes mellitus. GI: CT abdomen/pelvis with no evidence of obstruction. No concern for bowel ischemia at this time, continue to monitor clinically. Several bowel movements overnight. ID: Likely septic shock secondary to Gram-negative UTI based on prior culture results , resolved. Empirically covered with meropenem and vancomycin. Cultures are pending. Heme/Onc: No acute issues. Psych: No acute issues. Miscellaneous: No acute issues. Prophylaxis: Eliquis Diet: diabetic At this time patient is stable for transfer to telemetry [place]. Transfer discussed with Dr. Daigle. Quality Stroke Does the patient have a stroke diagnosis?: No VTE Prior VTE?: No VTE Risk Level:: Medical - moderate - high VTE Device Contraindication: Treatment Not Indicated VTE Drug Contraindication: N/A - Med Ordered
--- NOTE | 2022-04-12 09:49 | PM.EVENT ---
Event Note Date of Service: 04/26/22 Event Note: Patient being transfered out of ICU, transfer of care discused with Dr. Weathers, labs, meds vital reviewed A/P today per Dr Bermudez Time Spent With Patient Time: Total time managing care of this patient today ____ minutes.
[2022-04-12 11:19] LABS: Glucose, Whole Blood 104 mg/dL (60-115)
[2022-04-12 11:21] LABS: Vancomycin Random 14.6 mcg/mL (15-20)
[2022-04-12] MEDS: vancomycin HCL 1,000 MG in 0.9 % Sodium Chloride 250 ML 270 MG IV (12:10)
--- NOTE | 2022-04-12 14:49 | P.PNNP_ITS ---
Subjective Subjective Date of Service: 04/12/22 Interval history: Seen and examined, events noted Physical Exam Vital Signs: Vital Signs: Last Vital Signs Temp 97.0 F 04/12/22 08:00 Pulse 110 H 04/12/22 12:00 Resp 15 04/12/22 12:00 BP 101/57 L 04/12/22 12:00 Pulse Ox 97 04/12/22 12:00 O2 Del Method 04/12/22 09:00 O2 Flow Rate 1 04/11/22 14:00 FiO2 30 04/11/22 13:39 BMI result Body Mass Index 44.6 Const: Other: Pt intubated and appears comfortable she is morbidly obese General: no acute distress and other ( Sedated on the vent) Nutritional Appearance: obese HEENT: Other: Benign Eyes: Sclerae: sclerae normal EOM: EOMs intact bilaterally Neck: Other: No JVD, L IJ mahurkur in place Neck: Yes no lymphadenopathy, Yes trachea midline and Yes supple Chest: Other: no rales or rhonchi Resp: Auscultation: crackles ( mild bilateral) Cardio: Other: LUSB systolic murmur RRR Jugular venous distension: no JVD Rate: regular rate Rhythm: regular rhythm Heart sounds: no gallops, no murmurs and no rubs GI: Other: Obese and distended abdomen with hypoactive bowel sounds, tympanitic Neuro: Other: nonfocal but pt not cooperative Extrem: Other: 1 plus pretib edema bilaterally General: No clubbing, No cyanosis and Yes edema ( trace bilateral) Objective Data Labs 04/12/22 04:50 04/12/22 04:50 Labs: Laboratory Results - last 24 hr 04/11/22 04/11/22 04/11/22 16:06 19:55 21:07 WBC RBC Hgb Hct MCV MCH MCHC RDW Plt Count MPV Immature Gran % (Auto) Neut % (Auto) Lymph % (Auto) [place] % (Auto) Eos % (Auto) Baso % (Auto) Lymph # (Auto) [place] # (Auto) Eos # (Auto) Baso # (Auto) Abs Immat Gran (auto) Absolute Neuts (auto) Absolute Nucleated RBC Nucleated RBC % (auto) VBG pH VBG pCO2 VBG pO2 VBG HCO3 VBG O2 Saturation VBG Base Excess Sodium Potassium Chloride Carbon Dioxide Anion Gap BUN Creatinine Estim Creat Clear Calc Estimated GFR POC Glucose 104 102 104 Random Glucose Calcium Phosphorus Magnesium Albumin Random Vancomycin 04/12/22 04/12/22 04/12/22 04:47 04:50 04:50 WBC 6.5 RBC 3.05 L Hgb 9.1 L Hct 28.5 L MCV 93.4 MCH 29.8 MCHC 31.9 RDW 16.1 H Plt Count 254 MPV 10.4 Immature Gran % (Auto) 0.3 Neut % (Auto) 54.8 Lymph % (Auto) 27.5 [place] % (Auto) 14.0 H Eos % (Auto) 2.9 Baso % (Auto) 0.5 Lymph # (Auto) 1.8 [place] # (Auto) 0.9 Eos # (Auto) 0.2 Baso # (Auto) 0.0 Abs Immat Gran (auto) 0.02 Absolute Neuts (auto) 3.6 Absolute Nucleated RBC 0.000 Nucleated RBC % (auto) 0.0 VBG pH 7.38 VBG pCO2 35 VBG pO2 49 VBG HCO3 21 L VBG O2 Saturation 78.0 VBG Base Excess -3.3 Sodium 138 Potassium 4.1 Chloride 105 Carbon Dioxide 23 Anion Gap 14 BUN 14 Creatinine 1.68 H Estim Creat Clear Calc 37.1 Estimated GFR 30 POC Glucose Random Glucose 84 Calcium 8.0 L Phosphorus 3.8 Magnesium 1.8 Albumin 3.1 L Random Vancomycin 04/12/22 04/12/22 04/12/22 07:22 10:51 11:15 WBC RBC Hgb Hct MCV MCH MCHC RDW Plt Count MPV Immature Gran % (Auto) Neut % (Auto) Lymph % (Auto) [place] % (Auto) Eos % (Auto) Baso % (Auto) Lymph # (Auto) [place] # (Auto) Eos # (Auto) Baso # (Auto) Abs Immat Gran (auto) Absolute Neuts (auto) Absolute Nucleated RBC Nucleated RBC % (auto) VBG pH VBG pCO2 VBG pO2 VBG HCO3 VBG O2 Saturation VBG Base Excess Sodium Potassium Chloride Carbon Dioxide Anion Gap BUN Creatinine Estim Creat Clear Calc Estimated GFR POC Glucose 97 104 Random Glucose Calcium Phosphorus Magnesium Albumin Random Vancomycin 14.6 L Microbiology Microbiology Results: Microbiology 04/10/22 Unknown Urine Catheterized - [facility] Catheter Urine Culture - Preliminary Gram negative tanisha Enterococcus/Streptococcus sp 04/10/22 01:05 Blood - Venous Blood Culture - Preliminary No growth after 48 hours. 04/10/22 00:55 Blood - Venous Blood Culture - Preliminary No growth after 48 hours. Procedures Date of Service Date of Service: 04/12/22 Assessment & Plan Assessment and plan (1) LETHA (acute kidney injury): Status: Acute Assessment and Plan: Pt with LETHA in the setting of apparent septic shock, likely urosepsis source given hx of urinary retention and abnormal UA; oliguric, acidemic, hyperkalemic. Proceeding with acute HD (2) Acute hyperkalemia: Status: Acute Assessment and Plan: Due to transcell shift in the setting of acidosis and LETHA while on AIME I (3) Metabolic acidosis: Status: Acute (4) CKD (chronic kidney disease) stage 4, GFR 15-29 ml/min: Status: Acute Assessment and Plan: ry (5) Septic shock: Status: Acute Plan - Oliguric--> Non-Oliguric LETHA c/w sepsis asoc ATN with incr UOP; resolving LAST HD 04/11/22 - Sepsis - CKD 3: BSL SCr 2.0 range - recurrent LETHA events REC: cont to track UOP/renal func; no indication for RUG CUTTER HELPER today and hopefully will not need additional HD will follow w team D/W ICU team Time Spent With Patient Time: Total time managing care of this patient today ____ minutes. Progress Note: Quality Stroke Does the patient have a stroke diagnosis?: No
[2022-04-12 16:26] LABS: Glucose, Whole Blood 114 mg/dL (60-115)
[2022-04-12] MEDS: Apixaban 5 MG TABLET PO (20:21)
[2022-04-12 20:28] LABS: Glucose, Whole Blood 126 mg/dL (60-115)
[2022-04-13] VITALS (12 sets, daily range): BP systolic 102–177; BP diastolic 54–93; PULSE 71–88; RESP 11–18; TEMP 36.1–37; O2SAT 89–100; BMI 43.9
[2022-04-13] MEDS: QUEtiapine Fumarate 50 MG TABLET 150 MG PO ×2 (00:04→21:39)
[2022-04-13] MEDS: 0.9 % Sodium Chloride Flush 3 ML SYRINGE IVFLUSH ×3 (01:36→15:36)
--- NOTE | 2022-04-13 03:39 | PC.NURSE ---
Addendum entered by Hung Matt RN 04/13/22 04:54: burst of afib at 0453 with ratew 110's-120's, patient is asleep Original Note: Assumed care at 23:00. Patient denies complaints, is alert and oriented. Reports being sleepy, but asked for PRN seroquel, which was administered with good effect. Patient alert and oriented x4, moves all extremities. Vital signs unremarkable with exception of occasional drops in oxygen saturation that seem associated with brief periods of dry cough, when she is asleep and her oxygen saturation dropped to 87% on room air, so 2 LPM nasal cannula was re-applied to maintain oxygen saturations above 90% while patient is asleep. Patient continues to have moderately low urine outputs, from 100 ccs per hour down to 20 cc/hour. Patient also continues to have loose brown stools draining currently via rectal tube. Sinus rhythm with frequent PACs most of the night on telemetry with exception of a few brief episodes of afib with rate max around 102 BPM.
[2022-04-13 05:15] LABS: MANUAL DIFF FLAG NO
[2022-04-13 05:19] LABS: Basophils Percent Auto 0.7 % (0-2); Eosinophils Absolute Auto 0.2 X10*3/uL (0.0-0.4); Eosinophils Percent Auto 3.1 % (0-4); Hematocrit 29.8 % (37.0-47.0); Hemoglobin 9.2 g/dl (12.0-16.0); Imm Gran Abs Auto 0.03 X10*3/uL (0.00-0.03); Imm Gran Pct Auto 0.5 % (0.0-0.4); Lymphocytes Absolute Auto 1.9 X10*3/uL (1.2-4.9); Lymphocytes Percent Auto 32.6 % (20-40); Mean Corpuscular HGB Conc 30.9 g/dl (31.0-35.0); Mean Corpuscular Hemoglobin 29.8 pg (27.0-33.0); Mean Corpuscular Volume 96.4 fL (80.0-98.0); Mean Platelet Volume 9.8 fL (9.4-12.3); Monocytes Absolute Auto 0.8 X10*3/uL (0.1-1.2); Monocytes Percent Auto 14.6 % (2-11); Neutrophils Absolute Auto 2.8 x10*3/uL (2.0-8.3); Neutrophils Percent Auto 48.5 % (45-73); Platelet Count 250 X10*3/uL (160-400); Red Blood Count 3.09 X10*6/uL (4.20-5.50); White Blood Count 5.8 X10*3/uL (4.8-10.8)
[2022-04-13 05:36] LABS: Albumin Level 3.1 g/dL (3.5-5.0); Anion Gap 12 (12-20); Blood Urea Nitrogen 18 mg/dL (9-16); Calcium 8.1 mg/dL (8.4-10.2); Carbon Dioxide 25 mmol/L (22-29); Chloride 112 mmol/L (96-108); Estimated Glomerular Filt Rate 27; Glucose Random 99 mg/dL (60-115); Phosphorus 4.2 mg/dL (2.7-4.5); Sodium 145 mmol/L (135-145)
[2022-04-13] MEDS: Acetaminophen 325 MG TABLET 650 MG PO (06:02)
[2022-04-13] MEDS: Metoprolol Tartrate 25 MG TABLET PO ×2 (06:03→21:39)
[2022-04-13 07:37] LABS: Glucose, Whole Blood 104 mg/dL (60-115)
[2022-04-13] MEDS: Gabapentin 300 MG CAPSULE PO (08:46)
[2022-04-13] MEDS: Apixaban 5 MG TABLET PO ×2 (09:43→21:38)
[2022-04-13] MEDS: Ferrous Sulfate 324 MG TABLET.DR PO (09:43)
[2022-04-13] MEDS: FLUoxetine HCl 20 MG CAPSULE PO (09:43)
[2022-04-13] MEDS: DULoxetine HCl 30 MG CAPSULE.DR PO (09:43)
[2022-04-13 11:39] LABS: Glucose, Whole Blood 130 mg/dL (60-115)
--- NOTE | 2022-04-13 12:20 | HO.PM.IMPN ---
Subjective Subjective Date of Service: 04/13/22 Interval History: Seen in follow up for UTI with septic shock, LETHA Interval history: Renal function improving. Belcher catheter and rectal tube in place. Reports she has chronic belcher. She has no complaints Review of Systems Review of Systems: Yes all other systems are reviewed and are negative Physical Exam Vital Signs: Vital Signs: Last Vital Signs Temp 97.5 F 04/13/22 12:00 Pulse 71 04/13/22 12:00 Resp 12 04/13/22 12:00 BP 134/89 04/13/22 12:00 Pulse Ox 95 04/13/22 12:00 O2 Del Method 04/13/22 12:00 O2 Flow Rate 2 04/13/22 08:00 FiO2 30 04/11/22 13:39 BMI result Body Mass Index 43.9 Constitutional - Awake and Alert, No apparent distress Eyes - PERRLA, EOMI Cardiovascular - S1S2, RRR, No edema Respiratory - Normal lung expansion, Normal respiratory effort, No respiratory distress, CTA bilaterally Gastrointestinal - NT / ND; +BS; No rebound or guarding - No CVA tenderness Extremities - no calf tenderness bilaterally, no swelling Skin - Warm/Dry Neurological - Alert & oriented x3, CN II-XII in tact Psychological - Appropriate affect Objective Data Active Medications Acetaminophen (Acetaminophen 325 Mg Tablet) 650 mg PO Q6H PRN PRN Reason: Pain, Mild (Pain Scale 1-3) Last Admin: 04/13/22 06:02 Dose: 650 mg Documented By: CRICKET Albuterol Sulfate (Albuterol Sulfate 90 Mcg 8 Gm Inhaler) 2 puff INHALE QID PRN PRN Reason: Respiratory Distress Apixaban (Apixaban 5 Mg Tablet) 5 mg PO BID [facility] Last Admin: 04/13/22 09:43 Dose: 5 mg Documented By: CLARK Duloxetine HCl (Duloxetine Hcl 30 Mg Capsule.) 30 mg PO DAILY [facility] Last Admin: 04/13/22 09:43 Dose: 30 mg Documented By: CLARK Ferrous Sulfate (Ferrous Sulfate 324 Mg Tablet.) 324 mg PO DAILY [facility] Last Admin: 04/13/22 09:43 Dose: 324 mg Documented By: CLARK Fluoxetine HCl (Fluoxetine Hcl 20 Mg Capsule) 20 mg PO DAILY [facility] Last Admin: 04/13/22 09:43 Dose: 20 mg Documented By: CLARK Gabapentin (Gabapentin 400 Mg Capsule) 400 mg PO BEDTIME [facility] Gabapentin (Gabapentin 600 Mg Tablet) 600 mg PO BEDTIME [facility] Vancomycin HCl 1,000 mg/ (Sodium Chloride) 270 mls @ 270 mls/hr IV Q24H [facility] Last Infusion: 04/12/22 13:18 Dose: 0 mls/hr Documented By: CLARK Meropenem 1 gm/ Sodium (Chloride) 100 mls @ 200 mls/hr IV Q12H [facility] Last Infusion: 04/13/22 04:07 Dose: 0 mls/hr Documented By: CRICKET Insulin Human Lispro (Insulin Lispro 100 Unit/Ml 3 Ml Vial) 0 unit SUBCUT QIDACHS [facility]; Protocol Last Admin: 04/13/22 11:36 Dose: Not Given Documented By: CLARK Non-Admin Reason: No Insulin Coverage Metoprolol Tartrate (Metoprolol Tartrate 25 Mg Tablet) 25 mg PO BID [facility]; Protocol Ondansetron HCl (Ondansetron Hcl 4 Mg/2 Ml Vial) 4 mg IVPUSH Q8H PRN PRN Reason: Nausea and Vomiting Pharmacy Consult (Consult Rx Vancomycin Dosing) 1 each MISCELLANE DAILY PRN PRN Reason: Consult order Quetiapine Fumarate (Quetiapine Fumarate 50 Mg Tablet) 150 mg PO BEDTIME PRN PRN Reason: sleep Last Admin: 04/13/22 00:04 Dose: 150 mg Documented By: CRICKET Sodium Chloride (0.9 % Sodium Chloride Flush 3 Ml Syringe) 3 ml IVFLUSH QSHIFT [facility] Last Admin: 04/13/22 08:46 Dose: 3 ml Documented By: CLARK Labs 04/13/22 04:53 04/13/22 04:53 Labs: Laboratory Results - last 24 hr 04/12/22 04/12/22 04/13/22 16:19 20:24 04:53 MCV MCH MCHC RDW Plt Count MPV Immature Gran % (Auto) Neut % (Auto) Lymph % (Auto) [place] % (Auto) Eos % (Auto) Baso % (Auto) Lymph # (Auto) [place] # (Auto) Eos # (Auto) Baso # (Auto) Abs Immat Gran (auto) Absolute Neuts (auto) Absolute Nucleated RBC Nucleated RBC % (auto) Anion Gap 12 Estim Creat Clear Calc 34.0 Estimated GFR 27 POC Glucose 114 126 H Random Glucose 99 Calcium 8.1 L Phosphorus 4.2 Magnesium 2.0 Albumin 3.1 L 04/13/22 04/13/22 04/13/22 04:53 07:34 11:33 MCV 96.4 MCH 29.8 MCHC 30.9 L RDW 16.0 Plt Count 250 MPV 9.8 Immature Gran % (Auto) 0.5 H Neut % (Auto) 48.5 Lymph % (Auto) 32.6 [place] % (Auto) 14.6 H Eos % (Auto) 3.1 Baso % (Auto) 0.7 Lymph # (Auto) 1.9 [place] # (Auto) 0.8 Eos # (Auto) 0.2 Baso # (Auto) 0.0 Abs Immat Gran (auto) 0.03 Absolute Neuts (auto) 2.8 Absolute Nucleated RBC 0.000 Nucleated RBC % (auto) 0.0 Anion Gap Estim Creat Clear Calc Estimated GFR POC Glucose 104 130 H Random Glucose Calcium Phosphorus Magnesium Albumin Microbiology Microbiology Results: Microbiology 04/10/22 Unknown Urine Culture - Final Urine Catheterized - Belcher Catheter Enterobacter cloacae complex Enterococcus faecalis Assessment and Plan (1) Acute UTI: Status: Acute (2) Septic shock: Status: Acute (3) CKD (chronic kidney disease) stage 4, GFR 15-29 ml/min: Status: Acute (4) LETHA (acute kidney injury): Status: Acute Plan 76 year old female with history insulin dependent type 2 diabetes, CAD with prior myocardial infarction, paroxysmal atrial flutter on eliquis, urinary incontinence with recurrent UTI including with ESBL organism, chronic indwelling belcher catheter, and CKD stage 4 admitted to ICU on 04/10 for management of UTI with septic shock and acute renal failure. She was treated with vasopressors and required HD while on the unit. Renal function has improved and patient ripped out her HC catheter. However, renal function improving and no further HD advised by nephro who has been following case. She is being transitioned to hospitalist service for further management. #Septic shock- due to UTI- resolved -Monitor vitals #Acute UTI -UC grew enterobacter and enterococcus -Day 3 meropenam. Duration 7 days -Blood cultures negative #Acute kidney injury- resolved -Baseline CKD stage 4 -Creat baseline 1.6-1.85 -No longer requires HD, nephrology following -Follow BMP #Acute metabolic acidosis- related to acute renal failure- resolved # insulin-dependent type 2 diabetes-controlled -continue basal insulin -Humalog on sliding scale -diabetic diet -POC glucose # paroxysmal atrial flutter-rate controlled -continue Eliquis for rate control -metoprolol for rate control # CAD with history [place]/HLD -continue home meds #HTN- reasonably controlled -continue metoprolol -hold hctz/lisinopril #Morbid obesity- BMI 43 -weight loss efforts advised DVT prophylaxis- on eliquis Full code Patient requires ongoing inpatient stay for management acute UTI with septic shock and LETHA with improving creatinine, requiring close monitoring of vital signs to prevent decompensation Time Spent With Patient Time: Total time managing care of this patient today ____ minutes. Quality Stroke Does the patient have a stroke diagnosis?: No VTE Prior VTE?: No VTE Risk Level:: Medical - moderate - high VTE Device Contraindication: Treatment Not Indicated VTE Drug Contraindication: N/A - Med Ordered
[2022-04-13 12:38] LABS: Vancomycin Trough 17.1 mcg/mL (10.0-20.0)
[2022-04-13] MEDS: vancomycin HCL 1,000 MG in 0.9 % Sodium Chloride 250 ML 270 MG IV (12:59)
--- NOTE | 2022-04-13 16:36 | PM.PNNEP ---
Subjective Subjective Date of Service: 04/13/22 Interval history: Seen and examined, events noted Physical Exam Vital Signs: Vital Signs: Last Vital Signs Temp 97.5 F 04/13/22 12:00 Pulse 80 04/13/22 16:00 Resp 12 04/13/22 16:00 BP 143/81 H 04/13/22 16:00 Pulse Ox 98 04/13/22 16:00 O2 Del Method 04/13/22 16:00 O2 Flow Rate 2 04/13/22 08:00 FiO2 30 04/11/22 13:39 BMI result Body Mass Index 43.9 Const: Other: Pt intubated and appears comfortable she is morbidly obese General: no acute distress and other ( Sedated on the vent) Nutritional Appearance: obese HEENT: Other: Benign Eyes: Sclerae: sclerae normal EOM: EOMs intact bilaterally Neck: Other: No JVD, L IJ mahurkur in place Neck: Yes no lymphadenopathy, Yes trachea midline and Yes supple Chest: Other: no rales or rhonchi Resp: Auscultation: crackles ( mild bilateral) Cardio: Other: LUSB systolic murmur RRR Jugular venous distension: no JVD Rate: regular rate Rhythm: regular rhythm Heart sounds: no gallops, no murmurs and no rubs GI: Other: Obese and distended abdomen with hypoactive bowel sounds, tympanitic Neuro: Other: nonfocal but pt not cooperative Extrem: Other: 1 plus pretib edema bilaterally General: No clubbing, No cyanosis and Yes edema ( trace bilateral) Objective Data Labs 04/13/22 04:53 04/13/22 04:53 Labs: Laboratory Results - last 24 hr 04/12/22 04/13/22 04/13/22 20:24 04:53 04:53 WBC 5.8 RBC 3.09 L Hgb 9.2 L Hct 29.8 L MCV 96.4 MCH 29.8 MCHC 30.9 L RDW 16.0 Plt Count 250 MPV 9.8 Immature Gran % (Auto) 0.5 H Neut % (Auto) 48.5 Lymph % (Auto) 32.6 [place] % (Auto) 14.6 H Eos % (Auto) 3.1 Baso % (Auto) 0.7 Lymph # (Auto) 1.9 [place] # (Auto) 0.8 Eos # (Auto) 0.2 Baso # (Auto) 0.0 Abs Immat Gran (auto) 0.03 Absolute Neuts (auto) 2.8 Absolute Nucleated RBC 0.000 Nucleated RBC % (auto) 0.0 Sodium 145 Potassium 4.0 Chloride 112 H Carbon Dioxide 25 Anion Gap 12 BUN 18 H Creatinine 1.83 H Estim Creat Clear Calc 34.0 Estimated GFR 27 POC Glucose 126 H Random Glucose 99 Calcium 8.1 L Phosphorus 4.2 Magnesium 2.0 Albumin 3.1 L Vancomycin Trough 04/13/22 04/13/22 04/13/22 07:34 11:21 11:33 WBC RBC Hgb Hct MCV MCH MCHC RDW Plt Count MPV Immature Gran % (Auto) Neut % (Auto) Lymph % (Auto) [place] % (Auto) Eos % (Auto) Baso % (Auto) Lymph # (Auto) [place] # (Auto) Eos # (Auto) Baso # (Auto) Abs Immat Gran (auto) Absolute Neuts (auto) Absolute Nucleated RBC Nucleated RBC % (auto) Sodium Potassium Chloride Carbon Dioxide Anion Gap BUN Creatinine Estim Creat Clear Calc Estimated GFR POC Glucose 104 130 H Random Glucose Calcium Phosphorus Magnesium Albumin Vancomycin Trough 17.1 Microbiology Microbiology Results: Microbiology 04/10/22 Unknown Urine Catheterized - [facility] Catheter Urine Culture - Final Enterobacter cloacae complex Enterococcus faecalis 04/10/22 01:05 Blood - Venous Blood Culture - Preliminary No growth after 48 hours. 04/10/22 00:55 Blood - Venous Blood Culture - Preliminary No growth after 48 hours. Procedures Date of Service Date of Service: 04/13/22 Assessment & Plan Assessment and plan (1) LETHA (acute kidney injury): Status: Acute (2) Acute hyperkalemia: Status: Acute (3) Metabolic acidosis: Status: Acute (4) CKD (chronic kidney disease) stage 4, GFR 15-29 ml/min: Status: Acute Assessment and Plan: ry (5) Septic shock: Status: Acute Plan - Oliguric--> Non-Oliguric LETHA c/w sepsis asoc ATN with incr UOP; resolving LAST HD 04/11/22 - Sepsis - CKD 3: BSL SCr 2.0 range - recurrent LETHA events REC: no new recs for now; cont to track UOP/renal func; no indication for [employer] today and hopefully will not need additional HD will follow w team D/W ICU team Time Spent With Patient Time: Total time managing care of this patient today ____ minutes. Progress Note: Quality Stroke Does the patient have a stroke diagnosis?: No
[2022-04-13 17:17] LABS: Glucose, Whole Blood 111 mg/dL (60-115)
[2022-04-13 21:09] LABS: Glucose, Whole Blood 102 mg/dL (60-115)
[2022-04-13] MEDS: Gabapentin 600 MG TABLET PO (21:39)
[2022-04-13] MEDS: Gabapentin 400 MG CAPSULE PO (21:39)
[2022-04-14] VITALS (8 sets, daily range): BP systolic 99–166; BP diastolic 45–93; PULSE 57–69; RESP 12–20; TEMP 36.2–37.1; O2SAT 96–99; BMI 44.0
[2022-04-14] MEDS: 0.9 % Sodium Chloride Flush 3 ML SYRINGE IVFLUSH ×4 (00:15→21:12)
[2022-04-14 05:09] LABS: MANUAL DIFF FLAG NO
[2022-04-14 05:13] LABS: Basophils Percent Auto 0.5 % (0-2); Eosinophils Absolute Auto 0.3 X10*3/uL (0.0-0.4); Eosinophils Percent Auto 4.1 % (0-4); Hematocrit 28.9 % (37.0-47.0); Imm Gran Abs Auto 0.03 X10*3/uL (0.00-0.03); Imm Gran Pct Auto 0.5 % (0.0-0.4); Lymphocytes Absolute Auto 2.1 X10*3/uL (1.2-4.9); Lymphocytes Percent Auto 32.2 % (20-40); Mean Corpuscular HGB Conc 31.1 g/dl (31.0-35.0); Mean Corpuscular Hemoglobin 30.1 pg (27.0-33.0); Mean Corpuscular Volume 96.7 fL (80.0-98.0); Mean Platelet Volume 9.7 fL (9.4-12.3); Monocytes Absolute Auto 0.8 X10*3/uL (0.1-1.2); Monocytes Percent Auto 11.3 % (2-11); Neutrophils Absolute Auto 3.4 x10*3/uL (2.0-8.3); Neutrophils Percent Auto 51.4 % (45-73); Platelet Count 259 X10*3/uL (160-400); Red Blood Count 2.99 X10*6/uL (4.20-5.50); Red Cell Distribution Width 15.9 % (11.0-16.0); White Blood Count 6.6 X10*3/uL (4.8-10.8)
[2022-04-14 05:29] LABS: Anion Gap 14 (12-20); Blood Urea Nitrogen 23 mg/dL (9-16); Calcium 8.1 mg/dL (8.4-10.2); Carbon Dioxide 22 mmol/L (22-29); Chloride 112 mmol/L (96-108); Creatinine Clr Calc Pharmacy 41.4; Estimated Glomerular Filt Rate 34; Glucose Random 93 mg/dL (60-115); Potassium 4.5 mmol/L (3.3-5.1); Sodium 143 mmol/L (135-145)
[2022-04-14 07:31] LABS: Glucose, Whole Blood 102 mg/dL (60-115)
[2022-04-14] MEDS: Apixaban 5 MG TABLET PO ×2 (09:24→21:09)
[2022-04-14] MEDS: DULoxetine HCl 30 MG CAPSULE.DR PO (09:24)
[2022-04-14] MEDS: Metoprolol Tartrate 25 MG TABLET PO ×2 (09:25→21:09)
[2022-04-14] MEDS: Ferrous Sulfate 324 MG TABLET.DR PO (09:26)
[2022-04-14] MEDS: FLUoxetine HCl 20 MG CAPSULE PO (09:26)
[2022-04-14 11:24] LABS: Glucose, Whole Blood 122 mg/dL (60-115)
--- NOTE | 2022-04-14 12:47 | PC.NURSE ---
Rectal tube removed at 1245.
[2022-04-14] MEDS: vancomycin HCL 1,000 MG in 0.9 % Sodium Chloride 250 ML 270 MG IV (13:10)
[2022-04-14 16:05] LABS: Glucose, Whole Blood 119 mg/dL (60-115)
--- NOTE | 2022-04-14 16:45 | P.PNIM_ITS ---
Subjective Subjective Date of Service: 04/14/22 Interval History: resting comfortably offers no acute complaints tolerating diet no nausea no vomiting, no abdominal pain, no diarrhea, Belcher catheter with clear urine, denies urinary urgency, or dysuria, no fever chills no overnight events. Review of Systems Review of Systems: Yes all other systems are reviewed and are negative Physical Exam Vital Signs: Vital Signs: Last Vital Signs Temp 98.6 F 04/14/22 15:36 Pulse 61 04/14/22 15:36 Resp 18 04/14/22 15:36 BP 154/77 H 04/14/22 15:36 Pulse Ox 99 04/14/22 15:36 O2 Del Method 04/14/22 15:36 O2 Flow Rate 2 04/13/22 08:00 FiO2 30 04/11/22 13:39 BMI result Body Mass Index 44.0 Const: Other: General awake aler t x3,no acute dist ress.? Neck? no JV D. CVS? regular ra te rhythm, Respira tory lungs clear t o auscultation, no respiratory distr ess, no wheeze, no rhonchi. Gastroin testinal abdomen s oft, obese, nonten hcar, bowel sounds audible Rectal tub e with no signific ant stool Extremit ies no? edema Back no CVA tenderness Neuro nonfocal, s peech clear Psych appropriate affect Objective Data Active Medications Acetaminophen (Acetaminophen 325 Mg Tablet) 650 mg PO Q6H PRN PRN Reason: Pain, Mild (Pain Scale 1-3) Last Admin: 04/13/22 06:02 Dose: 650 mg Documented By: CRICKET Albuterol Sulfate (Albuterol Sulfate 90 Mcg 8 Gm Inhaler) 2 puff INHALE QID PRN PRN Reason: Respiratory Distress Apixaban (Apixaban 5 Mg Tablet) 5 mg PO BID [facility] Last Admin: 04/14/22 09:24 Dose: 5 mg Documented By: AMINA Duloxetine HCl (Duloxetine Hcl 30 Mg Capsule.) 30 mg PO DAILY [facility] Last Admin: 04/14/22 09:24 Dose: 30 mg Documented By: AMINA Ferrous Sulfate (Ferrous Sulfate 324 Mg Tablet.) 324 mg PO DAILY [facility] Last Admin: 04/14/22 09:26 Dose: 324 mg Documented By: AMINA Fluoxetine HCl (Fluoxetine Hcl 20 Mg Capsule) 20 mg PO DAILY [facility] Last Admin: 04/14/22 09:26 Dose: 20 mg Documented By: AMINA Gabapentin (Gabapentin 400 Mg Capsule) 400 mg PO BEDTIME [facility] Last Admin: 04/13/22 21:39 Dose: 400 mg Documented By: CAS Gabapentin (Gabapentin 600 Mg Tablet) 600 mg PO BEDTIME [facility] Last Admin: 04/13/22 21:39 Dose: 600 mg Documented By: CAS Vancomycin HCl 1,000 mg/ (Sodium Chloride) 270 mls @ 270 mls/hr IV Q24H [facility] Last Infusion: 04/14/22 14:23 Dose: 0 mls/hr Documented By: AMINA Meropenem 1 gm/ Sodium (Chloride) 100 mls @ 200 mls/hr IV Q12H [facility] Last Infusion: 04/14/22 16:39 Dose: 0 mls/hr Documented By: AMINA Insulin Human Lispro (Insulin Lispro 100 Unit/Ml 3 Ml Vial) 0 unit SUBCUT QIDACHS [facility]; Protocol Last Admin: 04/14/22 16:17 Dose: Not Given Documented By: AMINA Non-Admin Reason: No Insulin Coverage Metoprolol Tartrate (Metoprolol Tartrate 25 Mg Tablet) 25 mg PO BID [facility]; Protocol Last Admin: 04/14/22 09:25 Dose: 25 mg Documented By: AMINA Ondansetron HCl (Ondansetron Hcl 4 Mg/2 Ml Vial) 4 mg IVPUSH Q8H PRN PRN Reason: Nausea and Vomiting Pharmacy Consult (Consult Rx Vancomycin Dosing) 1 each MISCELLANE DAILY PRN PRN Reason: Consult order Quetiapine Fumarate (Quetiapine Fumarate 50 Mg Tablet) 150 mg PO BEDTIME PRN PRN Reason: sleep Last Admin: 04/13/22 21:39 Dose: 150 mg Documented By: CAS Sodium Chloride (0.9 % Sodium Chloride Flush 3 Ml Syringe) 3 ml IVFLUSH QSHIFT [facility] Last Admin: 04/14/22 15:58 Dose: 3 ml Documented By: AMINA Labs 04/14/22 04:57 04/14/22 04:57 Labs: Laboratory Results - last 24 hr 04/13/22 04/13/22 04/14/22 16:39 21:06 04:57 MCV MCH MCHC RDW Plt Count MPV Immature Gran % (Auto) Neut % (Auto) Lymph % (Auto) [place] % (Auto) Eos % (Auto) Baso % (Auto) Lymph # (Auto) [place] # (Auto) Eos # (Auto) Baso # (Auto) Abs Immat Gran (auto) Absolute Neuts (auto) Absolute Nucleated RBC Nucleated RBC % (auto) Anion Gap 14 Estim Creat Clear Calc 41.4 Estimated GFR 34 POC Glucose 111 102 Random Glucose 93 Calcium 8.1 L 04/14/22 04/14/22 04/14/22 04:57 07:26 11:19 MCV 96.7 MCH 30.1 MCHC 31.1 RDW 15.9 Plt Count 259 MPV 9.7 Immature Gran % (Auto) 0.5 H Neut % (Auto) 51.4 Lymph % (Auto) 32.2 [place] % (Auto) 11.3 H Eos % (Auto) 4.1 H Baso % (Auto) 0.5 Lymph # (Auto) 2.1 [place] # (Auto) 0.8 Eos # (Auto) 0.3 Baso # (Auto) 0.0 Abs Immat Gran (auto) 0.03 Absolute Neuts (auto) 3.4 Absolute Nucleated RBC 0.000 Nucleated RBC % (auto) 0.0 Anion Gap Estim Creat Clear Calc Estimated GFR POC Glucose 102 122 H Random Glucose Calcium 04/14/22 15:38 MCV MCH MCHC RDW Plt Count MPV Immature Gran % (Auto) Neut % (Auto) Lymph % (Auto) [place] % (Auto) Eos % (Auto) Baso % (Auto) Lymph # (Auto) [place] # (Auto) Eos # (Auto) Baso # (Auto) Abs Immat Gran (auto) Absolute Neuts (auto) Absolute Nucleated RBC Nucleated RBC % (auto) Anion Gap Estim Creat Clear Calc Estimated GFR POC Glucose 119 H Random Glucose Calcium Assessment and Plan (1) Acute UTI: Status: Acute (2) Septic shock: Status: Acute (3) CKD (chronic kidney disease) stage 4, GFR 15-29 ml/min: Status: Acute (4) LETHA (acute kidney injury): Status: Acute Plan 76 year old female with history insulin dependent type 2 diabetes, CAD with prior myocardial infarction, paroxysmal atrial flutter on eliquis, urinary incontinence with recurrent UTI including with ESBL organism, chronic indwelling belcher catheter, and CKD stage 4 admitted to ICU on 04/10 for management of UTI with septic shock and acute renal failure. She was treated with vasopressors and required HD while on the unit. Renal function has improved and patient ripped out her HC catheter. However, renal function improving and no further HD advised by nephro who has been following case. She is being transitioned to hospitalist service for further management. #Septic shock- due to UTI- resolved - no diarrhea will DC rectal tube,Monitor vitals #Acute UTI -UC grew enterobacter and enterococcus -Day 4 meropenam. Blood cultures negative, will discuss with ID regarding choice and duration of antibiotics #Acute kidney injury- resolved -Baseline CKD stage 4 -Creat baseline 1.6-1.85 -No longer requires HD, nephrology following -Follow BMP #Acute metabolic acidosis- related to acute renal failure- resolved # insulin-dependent type 2 diabetes-controlled -continue basal insulin -Humalog on sliding scale -diabetic diet -POC glucose # paroxysmal atrial flutter-rate controlled -continue Eliquis for rate control -metoprolol for rate control # CAD with history [place]/HLD -continue home meds #HTN- reasonably controlled -continue metoprolol -hold hctz/lisinopril #Morbid obesity- BMI 43 -weight loss efforts advised DVT prophylaxis- on eliquis Full code Patient requires ongoing inpatient stay for management acute UTI with septic shock and LETHA with improving creatinine, requiring close monitoring of vital signs to prevent decompensation Time Spent With Patient Time: Total time managing care of this patient today ____ minutes. Quality Stroke Does the patient have a stroke diagnosis?: No VTE Prior VTE?: No VTE Risk Level:: Medical - moderate - high VTE Device Contraindication: Treatment Not Indicated VTE Drug Contraindication: N/A - Med Ordered
--- NOTE | 2022-04-14 19:54 | P.PNNP_ITS ---
Subjective Subjective Date of Service: 04/14/22 Interval history: Seen and examined, events noted Physical Exam Vital Signs: Vital Signs: Last Vital Signs Temp 98.6 F 04/14/22 19:50 Pulse 68 04/14/22 19:50 Resp 18 04/14/22 19:50 BP 154/93 H 04/14/22 19:50 Pulse Ox 98 04/14/22 19:50 O2 Del Method 04/14/22 19:50 O2 Flow Rate 2 04/13/22 08:00 FiO2 30 04/11/22 13:39 BMI result Body Mass Index 44.0 Const: Other: Pt intubated and appears comfortable she is morbidly obese General: no acute distress and other ( Sedated on the vent) Nutritional Appearance: obese HEENT: Other: Benign Eyes: Sclerae: sclerae normal EOM: EOMs intact bilaterally Neck: Other: No JVD, L IJ mahurkur in place Neck: Yes no lymphadenopathy, Yes trachea midline and Yes supple Chest: Other: no rales or rhonchi Resp: Auscultation: crackles ( mild bilateral) Cardio: Other: LUSB systolic murmur RRR Jugular venous distension: no JVD Rate: regular rate Rhythm: regular rhythm Heart sounds: no gallops, no murmurs and no rubs GI: Other: Obese and distended abdomen with hypoactive bowel sounds, tympanitic Neuro: Other: nonfocal but pt not cooperative Extrem: Other: 1 plus pretib edema bilaterally General: No clubbing, No cyanosis and Yes edema ( trace bilateral) Objective Data Labs 04/14/22 04:57 04/14/22 04:57 Labs: Laboratory Results - last 24 hr 04/13/22 04/14/22 04/14/22 21:06 04:57 04:57 WBC 6.6 RBC 2.99 L Hgb 9.0 L Hct 28.9 L MCV 96.7 MCH 30.1 MCHC 31.1 RDW 15.9 Plt Count 259 MPV 9.7 Immature Gran % (Auto) 0.5 H Neut % (Auto) 51.4 Lymph % (Auto) 32.2 [place] % (Auto) 11.3 H Eos % (Auto) 4.1 H Baso % (Auto) 0.5 Lymph # (Auto) 2.1 [place] # (Auto) 0.8 Eos # (Auto) 0.3 Baso # (Auto) 0.0 Abs Immat Gran (auto) 0.03 Absolute Neuts (auto) 3.4 Absolute Nucleated RBC 0.000 Nucleated RBC % (auto) 0.0 Sodium 143 Potassium 4.5 Chloride 112 H Carbon Dioxide 22 Anion Gap 14 BUN 23 H Creatinine 1.49 H Estim Creat Clear Calc 41.4 Estimated GFR 34 POC Glucose 102 Random Glucose 93 Calcium 8.1 L 04/14/22 04/14/22 04/14/22 07:26 11:19 15:38 WBC RBC Hgb Hct MCV MCH MCHC RDW Plt Count MPV Immature Gran % (Auto) Neut % (Auto) Lymph % (Auto) [place] % (Auto) Eos % (Auto) Baso % (Auto) Lymph # (Auto) [place] # (Auto) Eos # (Auto) Baso # (Auto) Abs Immat Gran (auto) Absolute Neuts (auto) Absolute Nucleated RBC Nucleated RBC % (auto) Sodium Potassium Chloride Carbon Dioxide Anion Gap BUN Creatinine Estim Creat Clear Calc Estimated GFR POC Glucose 102 122 H 119 H Random Glucose Calcium Microbiology Microbiology Results: Microbiology 04/10/22 Unknown Urine Catheterized - [facility] Catheter Urine Culture - Final Enterobacter cloacae complex Enterococcus faecalis 04/10/22 01:05 Blood - Venous Blood Culture - Preliminary No growth after 48 hours. 04/10/22 00:55 Blood - Venous Blood Culture - Preliminary No growth after 48 hours. Procedures Date of Service Date of Service: 04/14/22 Assessment & Plan Assessment and plan (1) LETHA (acute kidney injury): Status: Acute (2) Acute hyperkalemia: Status: Acute (3) Metabolic acidosis: Status: Acute (4) CKD (chronic kidney disease) stage 4, GFR 15-29 ml/min: Status: Acute Assessment and Plan: ry (5) Septic shock: Status: Acute Plan - Oliguric--> Non-Oliguric LETHA c/w sepsis asoc ATN with incr UOP; resolving LAST HD 04/11/22 - Sepsis - CKD 3: BSL SCr 2.0 range - recurrent LETHA events REC: no new recs for now; cont to track UOP/renal func; will need f/u as outpt after d/c ( I will arrange) will follow w team D/W ICU team Time Spent With Patient Time: Total time managing care of this patient today ____ minutes. Progress Note: Quality Stroke Does the patient have a stroke diagnosis?: No
[2022-04-14 20:06] LABS: Glucose, Whole Blood 133 mg/dL (60-115)
[2022-04-15] MEDS: QUEtiapine Fumarate 50 MG TABLET 150 MG PO (00:27)
[2022-04-15 03:48] VITALS: BP 146/82; PULSE 74; RESP 20; TEMP 36.5; O2SAT 98
[2022-04-15 06:44] LABS: Creatinine Clr Calc Pharmacy 47.9; Estimated Glomerular Filt Rate 40
[2022-04-15 07:34] LABS: Glucose, Whole Blood 98 mg/dL (60-115)
[2022-04-15 08:00] VITALS: BP 136/79; PULSE 91; RESP 22; TEMP 36.6; O2SAT 96
[2022-04-15] MEDS: Metoprolol Tartrate 25 MG TABLET PO (08:28)
[2022-04-15] MEDS: DULoxetine HCl 30 MG CAPSULE.DR PO (08:28)
[2022-04-15] MEDS: FLUoxetine HCl 20 MG CAPSULE PO (08:28)
[2022-04-15] MEDS: Apixaban 5 MG TABLET PO (08:28)
[2022-04-15] MEDS: Ferrous Sulfate 324 MG TABLET.DR PO (08:28)
[2022-04-15] MEDS: 0.9 % Sodium Chloride Flush 3 ML SYRINGE IVFLUSH (08:29)
[2022-04-15 11:05] LABS: Glucose, Whole Blood 92 mg/dL (60-115)
[2022-04-15 12:00] VITALS: BP 128/80; PULSE 81; RESP 20; TEMP 36.6; O2SAT 98
--- NOTE | 2022-04-15 12:22 | HE.PHANOTE ---
RE JIMMIE TROUGH WAS 21 TODAY. WILL LOWER DOSE AND START THIS EVENING AT 2300 TO GIVE PATIENT TIME TO CLEAR. PATIENT MIGHT BE DOSE DUMPING SINCE THEY WERE NOT IN THE OBESE MODEL. NEXT RANDOM DUE 04/16 @2100
--- NOTE | 2022-04-15 14:14 | PM.DS ---
DS: Providers Provider Date of Service: 04/15/22 Date of admission: 04/10/22 11:00 Primary care physician: Janet Phelan MD Consults: 04/10/22 13:21 Consult to Nephrology Stat Consulting Provider: [facility] Reason for consultation: LETHA, hyperkalemia, metabolic acidosis, oliguria, ?HD Has provider been notified: No 04/14/22 11:44 Consult to Infectious Diseases Routine Consulting Provider: Vicky Gant Reason for consultation: uti with sepsis Has provider been notified: No DS: Diagnosis Discharge Diagnosis (1) LETHA (acute kidney injury): Status: Acute (2) Acute hyperkalemia: Status: Acute (3) Metabolic acidosis: Status: Acute (4) CKD (chronic kidney disease) stage 4, GFR 15-29 ml/min: Status: Acute (5) Septic shock: Status: Acute DS: Summary Hospital Course Hospital Course: Date of Service: 04/10/22 Chief Complaint:? septic shock, acute respiratory failure 76-year-old lady with underlying history obesity, diabetes mellitus, CAD with prior myocardial infarction, a flutter on anticoagulation with Eliquis, urinary incontinence with multiple prior UTI's including with an ESBL producing organism, CKD stage 3 admitted on 04/10/2022 with 2 week history of worsening bilateral abdominal pain.? On ER evaluation patient with acute renal failure, significant metabolic acidosis, with development of hypertension requiring initiation of vasopressor support and respiratory distress requiring intubation.? Started on empiric antibiotics and Levophed and admitted to intensive care unit.? CT abdomen/ pelvis with no evidence of bowel obstruction. 76 year old female with history insulin dependent type 2 diabetes, CAD with prior myocardial infarction, paroxysmal atrial flutter on eliquis, urinary incontinence with recurrent UTI including with ESBL organism, chronic indwelling belcher catheter, and CKD stage 4 admitted to ICU on 04/10 for management of UTI with septic shock and acute renal failure. She was treated with vasopressors and required HD while on the unit. Renal function improved and patient ripped out her HD catheter,since renal function improved no further HD advised by nephro who followed patient closely she was subsequently transitioned to hospitalist service #Septic shock- due to UTI- resolved,UC grew enterobacter and enterococcus patient is being discharged home on by mouth Levaquin for 7 more days, blood cultures are negative, patient treated in-house with IV vanco and IV meropenem for 5 days. #Acute kidney injury on chronic kidney disease stage 4, LETHA due to sepsis associated ATN, patient required hemodialysis, renal function subsequently improved, creatinine at baseline will avoid nephrotoxins #Acute metabolic acidosis- related to acute renal failure- resolved # insulin-dependent type 2 diabetes- blood sugars well controlled recommend to hold Lantus and pre meal insulin and follow blood sugar closely if noted to have elevated blood sugars above 150 resume home medication continue diabetic diet #paroxysmal atrial flutter-rate controlled continue Eliquis and metoprolol. # In regard to coronary artery disease, hyperlipidemia and hypertension recommend to continue all home medication except hydrochlorothiazide and lisinopril has been discontinued #Morbid obesity- BMI 43 -weight loss efforts advised Time Spent with Patient Time attestation: Total time managing care of this patient today ____ minutes. Discharge coordination time: Greater than 30 minutes Quality: Safe Use of Opioids Does Pt have an Active Cancer Diagnosis on the Problem List?: No Quality: Stroke Does the patient have a stroke diagnosis?: No Physical Exam Vital Signs: Vital Signs: Last Vital Signs Temp 97.9 F 04/15/22 12:00 Pulse 81 04/15/22 12:00 Resp 20 04/15/22 12:00 BP 128/80 04/15/22 12:00 Pulse Ox 98 04/15/22 12:00 O2 Del Method 04/15/22 12:00 O2 Flow Rate 2 04/13/22 08:00 FiO2 30 04/11/22 13:39 BMI result Body Mass Index 44.0 Const: Other: General awake aler t x3,no acute dist ress.? Neck? no JV D. CVS? regular ra te rhythm, Respira tory lungs clear t o auscultation, no respiratory distr ess, no wheeze, no rhonchi. Gastroin testinal abdomen s oft, obese, non te nder, bowel sounds audible Extremiti es no? edema Back no CVA tenderness Neuro non focal, s peech clear Psych appropriate affect Belcher clear urine DS: Data Data Completed and Pending Completed studies during hospitalization [Text1]: Procedures Insertion of Infusion Device into Right Basilic Vein, Percutaneous Approach (01/21/21) Labs on day of discharge: Laboratory Results - last 24 hr 04/14/22 04/14/22 04/15/22 15:38 19:48 05:52 Creatinine 1.29 Estim Creat Clear Calc 47.9 Estimated GFR 40 POC Glucose 119 H 133 H Vancomycin Trough 04/15/22 04/15/22 04/15/22 07:30 10:58 11:21 Creatinine Estim Creat Clear Calc Estimated GFR POC Glucose 98 92 Vancomycin Trough 21.0 H Discharge Plan Discharge Anticipated Discharge Date/Time: 04/15/22 14:03 Patient Disposition: Home Health Service Discharge Diagnosis: septic shock due to UTI acute kidney injury acute metabolic acidosis Referrals: Janet Phelan MD [Primary Care Provider] - 1 Week Discharge Medications: New levofloxacin 750 mg tablet 750 mg PO Q48H 7 Days Qty: 4 0RF Continued sulfamethoxazole-trimethoprim [Bactrim DS] 800-160 mg tablet 1 tab PO .COMPLEX 30 Days Qty: 30 1RF Rx Instructions: 1 tab orally on days of catheter change; quetiapine 300 mg tablet 150 mg PO BEDTIME PRN (Reason: Insomnia) Rx Instructions: MRX1 metoprolol tartrate 25 mg tablet 25 mg PO BID Protocol: Hold for SBP/HR < HOLD for SBP < : 90 HOLD for HR < : 60 gabapentin 400 mg capsule 1 cap PO BEDTIME Eliquis 5 mg Tablet 5 mg PO BID Qty: 60 0RF (DME) lancets [FreeStyle Lancets] 28 gauge misc See Rx Instructions .ROUTE .MEDSUPPLY Qty: 100 0RF Rx Instructions: As directed (DME) FreeStyle Lite Strips Strip See Rx Instructions .Route Qty: 100 0RF Rx Instructions: As directed (DME) pen needle, diabetic [Pen Needle] 32 gauge x 5/32 needle See Rx Instructions .Route Qty: 50 0RF Rx Instructions: As directed duloxetine 30 mg capsule,delayed release(DR/EC) 30 mg PO DAILY gabapentin 600 mg tablet 1 tab PO BEDTIME amlodipine 5 mg Tablet 5 mg PO DAILY Qty: 30 0RF Protocol: Hold for SBP< HOLD for SBP < : 90 (DME) lancing device with lancets [Tivityuch Delica Lanc Device] Kit See Rx Instructions .ROUTE .MEDSUPPLY Qty: 1 Rx Instructions: As directed fluoxetine 20 mg capsule 20 mg PO DAILY albuterol sulfate 90 mcg/actuation HFA aerosol inhaler 2 puff inhalation QID PRN (Reason: Respiratory Distress) ferrous sulfate 325 mg (65 mg iron) tablet 325 mg PO DAILY Discontinued lisinopril-hydrochlorothiazide 20-25 mg tablet 1 tab PO DAILY insulin glargine [Lantus Solostar U-100 Insulin] 100 unit/mL (3 mL) insulin pen 10 unit subcut BEDTIME Qty: 15 0RF insulin lispro [Humalog KwikPen Insulin] 100 unit/mL insulin pen 4 unit subcut TIDAC Qty: 4 0RF Discharge Orders: Discharge Order (Routine); Ordered 04/15/22 Ordered By: Kimberly Luu Diet: Diabetic diet Activity on Discharge: As tolerated Stand Alone Forms: Patient Portal Discharge page Care Plan Goals: take Levaquin 750 mg every other day starting tomorrow for 1 week total 4 tablets given noted to have stable blood sugars therefore hold Lantus and pre meal insulin if noted to have blood sugars above 150 resume insulin Health Concerns: diabetic diet, take all medications as prescribed, Belcher catheter change every 30 days Plan of Treatment: outpatient follow-up with primary care physician, [employer]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 Contreras call for appointment Assessment: as above
--- NOTE | 2022-04-15 14:53 | MHC.CM.PN ---
pt to be dcd today at 4 to her home at [address] [place] [address] with miladis
[2022-04-15 15:44] VITALS: BP 163/73; PULSE 64; RESP 19; TEMP 36.6; O2SAT 98
--- NOTE | 2022-04-15 15:46 | W.PM.IDCN ---
History of Present Illness Data of Consult Service Date: 04/15/22 Requesting physician: Kimberly Luu Primary Care Provider: MD TRAVIS [place] Reason for consult: septic shock She presents with confusion and agitation She has some confusion now. She has multiple organisms including enterococcus urine. Review of Systems Review of Systems: Yes Unobtainable due to mental condition PMFSH Past Medical History Medical History Anxiety and depression Arthritis Asthma Atrial flutter Chronic kidney disease, stage 3 Chronic pain CKD (chronic kidney disease) stage 4, GFR 15-29 ml/min Diabetes mellitus High cholesterol History of myocardial infarction HTN (hypertension) Hyperglycemia Lateral malleolar fracture Limited mobility Multiple falls Myocardial infarction On anticoagulant therapy On beta lanette at home Paroxysmal atrial fibrillation Type 2 diabetes mellitus with unspecified complications Urgency incontinence Family History Family History Father No problems noted. Mother Diabetes High blood pressure Stomach cancer Family history: reviewed and not pertinent Surgical History Surgical History H/O neck surgery History of cataract extraction History of cystoscopy History of heart artery stent Hx of cholecystectomy Hx of colonoscopy Social History Social History Household Members: Unknown / Unable to assess Housing: Unknown / Unable to assess Are you a primary healthcare consultant to a significant other at home: No Unable to assess alcohol history related to: Unable to respond and Unknown Alcohol intake: current Alcohol intake frequency: does not drink Patient Tobacco Use Status: Former Tobacco user Quit Date: 2005 Tobacco use type: Cigarette Years Smoked: 30-40 years Smoked in Last 30 Days: No Second Hand Smoke Exposure: No Use of substances other than those prescribed or required for medical reasons: Unknown Substance Use Type: Unknown Last Used Substance: Unknown Currently Displaying Signs/Symptoms of Drug Intoxication Withdrawal: No Advance Directives: No Nutrition Risks: No Nutritional Risk Patient : No : No service: No Current occupational status: disabled Meds Allergies Allergy/AdvReac Type Severity Reaction Status Date / Time atorvastatin [ATORVASTATIN] Allergy Intermediate SWELLING Verified 03/13/22 20:48 morphine [MORPHINE] Allergy Intermediate RASH Verified 03/13/22 20:48 zolpidem [From AMBIEN] AdvReac Intermediate SLEEP WALKS Verified 03/13/22 20:48 Active Medications: Current Medications Acetaminophen (Acetaminophen 325 Mg Tablet) 650 mg PO Q6H PRN PRN Reason: Pain, Mild (Pain Scale 1-3) Last Admin: 04/13/22 06:02 Dose: 650 mg Albuterol Sulfate (Albuterol Sulfate 90 Mcg 8 Gm Inhaler) 2 puff INHALE QID PRN PRN Reason: Respiratory Distress Apixaban (Apixaban 5 Mg Tablet) 5 mg PO BID [facility] Last Admin: 04/15/22 08:28 Dose: 5 mg Duloxetine HCl (Duloxetine Hcl 30 Mg Capsule.) 30 mg PO DAILY [facility] Last Admin: 04/15/22 08:28 Dose: 30 mg Ferrous Sulfate (Ferrous Sulfate 324 Mg Tablet.) 324 mg PO DAILY [facility] Last Admin: 04/15/22 08:28 Dose: 324 mg Fluoxetine HCl (Fluoxetine Hcl 20 Mg Capsule) 20 mg PO DAILY [facility] Last Admin: 04/15/22 08:28 Dose: 20 mg Gabapentin (Gabapentin 400 Mg Capsule) 400 mg PO BEDTIME [facility] Last Admin: 04/14/22 21:18 Dose: Not Given Gabapentin (Gabapentin 600 Mg Tablet) 600 mg PO BEDTIME [facility] Last Admin: 04/14/22 21:16 Dose: Not Given Meropenem 1 gm/ Sodium (Chloride) 100 mls @ 200 mls/hr IV Q12H [facility] Last Infusion: 04/15/22 05:51 Dose: Infused Vancomycin HCl 750 mg/ Sodium (Chloride) 265 mls @ 265 mls/hr IV Q24H [facility] Insulin Human Lispro (Insulin Lispro 100 Unit/Ml 3 Ml Vial) 0 unit SUBCUT QIDACHS [facility]; Protocol Last Admin: 04/15/22 12:34 Dose: Not Given Metoprolol Tartrate (Metoprolol Tartrate 25 Mg Tablet) 25 mg PO BID [facility]; Protocol Last Admin: 04/15/22 08:28 Dose: 25 mg Ondansetron HCl (Ondansetron Hcl 4 Mg/2 Ml Vial) 4 mg IVPUSH Q8H PRN PRN Reason: Nausea and Vomiting Pharmacy Consult (Consult Rx Vancomycin Dosing) 1 each MISCELLANE DAILY PRN PRN Reason: Consult order Quetiapine Fumarate (Quetiapine Fumarate 50 Mg Tablet) 150 mg PO BEDTIME PRN PRN Reason: sleep Last Admin: 04/15/22 00:27 Dose: 150 mg Sodium Chloride (0.9 % Sodium Chloride Flush 3 Ml Syringe) 3 ml IVFLUSH [facility] Last Admin: 04/15/22 08:29 Dose: 3 ml Home Medications Medication Instructions Recorded Confirmed Last Taken Type lancing device with lancets kit #1 ea 03/24/21 03/13/22 Unknown [facility] metoprolol tartrate 25 mg tablet 25 mg PO BID 07/15/21 04/10/22 11/03/21 08:15 History quetiapine 300 mg tablet 150 mg PO BEDTIME PRN Insomnia 07/15/21 04/10/22 10/11/21 History albuterol sulfate 90 mcg/actuation 2 puff inhalation QID PRN 11/30/21 04/10/22 Unknown History aerosol inhaler Respiratory Distress duloxetine 30 mg capsule,delayed 30 mg PO DAILY 11/30/21 04/10/22 Unknown History release ferrous sulfate 325 mg (65 mg 325 mg PO DAILY 11/30/21 04/10/22 Unknown History iron) tablet fluoxetine 20 mg capsule 20 mg PO DAILY 11/30/21 04/10/22 Unknown History gabapentin 600 mg tablet 1 tab PO BEDTIME 01/11/22 04/10/22 Unknown History gabapentin 400 mg capsule 1 cap PO BEDTIME 04/10/22 04/10/22 Unknown History Physical Exam Vital Signs: Vital Signs: Last Vital Signs Temp 97.8 F 04/15/22 15:44 Pulse 64 04/15/22 15:44 Resp 19 04/15/22 15:44 BP 163/73 H 04/15/22 15:44 Pulse Ox 98 04/15/22 15:44 O2 Del Method 04/15/22 15:44 O2 Flow Rate 2 04/13/22 08:00 FiO2 30 04/11/22 13:39 BMI result Body Mass Index 44.0 Const: General: cooperative HEENT: Head: Yes normal to inspection Face and sinus: Yes normal facial exam Mouth: Normal oral and palatal mucosa present Teeth and gingiva: dentition normal Eyes: General: appearance normal, both eyes and all related structures Pupils: Equal, round and reactive pupils present Resp: Effort & Inspection: normal respiratory effort Cardio: Rate: regular rate Rhythm: regular rhythm GI: Palpation (GI): Soft to palpation and nontender : General: Yes no CVA tenderness Back/Spine/Pelvis: Back: no CVA tenderness Skin: General skin exam: no rashes or lesions noted Neuro: General: moves all extremities Cranial nerves: Yes Equal, round and reactive pupils present Extrem: General: Yes normal to inspection Psych: Other: confused Results Labs 04/14/22 04:57 04/15/22 05:52 Labs: BMP 04/15/22 05:52 Creatinine 1.29 Microbiology Microbiology Results: Microbiology 04/10/22 01:05 Blood - Venous Blood Culture - Final No growth after 5 days. 04/10/22 00:55 Blood - Venous Blood Culture - Final No growth after 5 days. 04/10/22 Unknown Urine Catheterized - [facility] Catheter Urine Culture - Final Enterobacter cloacae complex Enterococcus faecalis Assessment and Plan (1) Acute respiratory failure: Status: Acute (2) Septic shock: Status: Acute She has some urinary organisms worth treating. She is feeling better This is cause of symptoms Plan Finish with Levaquin for one week,renal dose adjust 250. Time Spent With Patient Time: Total time managing care of this patient today ____ minutes.
[2022-04-15 16:53] LABS: Glucose, Whole Blood 104 mg/dL (60-115)
--- NOTE | 2022-04-15 17:54 | PM.PNNEP ---
Subjective Subjective Date of Service: 04/15/22 Interval history: Seen and examined, events noted Physical Exam Vital Signs: Vital Signs: Last Vital Signs Temp 97.8 F 04/15/22 15:44 Pulse 64 04/15/22 15:44 Resp 19 04/15/22 15:44 BP 163/73 H 04/15/22 15:44 Pulse Ox 98 04/15/22 15:44 O2 Del Method 04/15/22 15:44 O2 Flow Rate 2 04/13/22 08:00 FiO2 30 04/11/22 13:39 BMI result Body Mass Index 44.0 Const: Other: Pt intubated and appears comfortable she is morbidly obese General: no acute distress and other ( Sedated on the vent) Nutritional Appearance: obese HEENT: Other: Benign Eyes: Sclerae: sclerae normal EOM: EOMs intact bilaterally Neck: Other: No JVD, L IJ mahurkur in place Neck: Yes no lymphadenopathy, Yes trachea midline and Yes supple Chest: Other: no rales or rhonchi Resp: Auscultation: crackles ( mild bilateral) Cardio: Other: LUSB systolic murmur RRR Jugular venous distension: no JVD Rate: regular rate Rhythm: regular rhythm Heart sounds: no gallops, no murmurs and no rubs GI: Other: Obese and distended abdomen with hypoactive bowel sounds, tympanitic Neuro: Other: nonfocal but pt not cooperative Extrem: Other: 1 plus pretib edema bilaterally General: No clubbing, No cyanosis and Yes edema ( trace bilateral) Objective Data Labs 04/14/22 04:57 04/15/22 05:52 Labs: Laboratory Results - last 24 hr 04/14/22 04/15/22 04/15/22 19:48 05:52 07:30 Creatinine 1.29 Estim Creat Clear Calc 47.9 Estimated GFR 40 POC Glucose 133 H 98 Vancomycin Trough 04/15/22 04/15/22 04/15/22 10:58 11:21 15:46 Creatinine Estim Creat Clear Calc Estimated GFR POC Glucose 92 104 Vancomycin Trough 21.0 H Microbiology Microbiology Results: Microbiology 04/10/22 01:05 Blood - Venous Blood Culture - Final No growth after 5 days. 04/10/22 00:55 Blood - Venous Blood Culture - Final No growth after 5 days. 04/10/22 Unknown Urine Catheterized - Solis Catheter Urine Culture - Final Enterobacter cloacae complex Enterococcus faecalis Procedures Date of Service Date of Service: 04/15/22 Assessment & Plan Assessment and plan (1) LETHA (acute kidney injury): Status: Acute (2) Acute hyperkalemia: Status: Acute (3) Metabolic acidosis: Status: Acute (4) CKD (chronic kidney disease) stage 4, GFR 15-29 ml/min: Status: Acute Assessment and Plan: ry (5) Septic shock: Status: Acute Plan - Oliguric--> Non-Oliguric LETHA c/w sepsis asoc ATN with incr UOP; resolving LAST HD 04/11/22 - Sepsis - CKD 3: Scr now lower then in the past - recurrent LETHA events REC: no new recs for now; cont to track UOP/renal func; will need f/u as outpt after d/c ( I will arrange) will follow w team D/W ICU team Time Spent With Patient Time: Total time managing care of this patient today ____ minutes. Progress Note: Quality Stroke Does the patient have a stroke diagnosis?: No
== END 2022-04-15 19:18 | disposition home health service (06) | DRG 698 ==
LOC: HO.ED 02:33 → HO.EDOVER 11:17 → HO.ICU 11:36 → HO.IMC 04-14 05:26
PROVIDERS: Emergency Medicine; Hospitalist; Internal Medicine; Physician Assistant; Registered Nurse Community Health; Admitting Provider Internal Medicine Pulmonary Disease; Emergency Provider Emergency Medicine; PCP Internal Medicine; Visit Provider Hospitalist
DX: T83.511A Infection and inflammatory reaction due to indwelling urethral catheter, initial encounter (principal); A41.9 Sepsis, unspecified organism; R65.21 Severe sepsis with septic shock; G93.41 Metabolic encephalopathy; N17.0 Acute kidney failure with tubular necrosis; J96.00 Acute respiratory failure, unspecified whether with hypoxia or hypercapnia; I48.92 Unspecified atrial flutter; Z68.41 Body mass index [BMI] 40.0-44.9, adult; N18.4 Chronic kidney disease, stage 4 (severe); N39.0 Urinary tract infection, site not specified; I12.9 Hypertensive chronic kidney disease with stage 1 through stage 4 chronic kidney disease, or unspecified chronic kidney disease; I25.10 Atherosclerotic heart disease of native coronary artery without angina pectoris; E11.22 Type 2 diabetes mellitus with diabetic chronic kidney disease; E66.01 Morbid (severe) obesity due to excess calories; E87.5 Hyperkalemia; B95.2 Enterococcus as the cause of diseases classified elsewhere; N32.0 Bladder-neck obstruction; Z20.822 Contact with and (suspected) exposure to COVID-19; Z87.440 Personal history of urinary (tract) infections; I25.2 Old myocardial infarction; Z87.891 Personal history of nicotine dependence; Z88.5 Allergy status to narcotic agent; Z88.8 Allergy status to other drugs, medicaments and biological substances; Z79.01 Long term (current) use of anticoagulants; Z79.899 Other long term (current) drug therapy
CPT/HCPCS: 36415; 71045; 74176; 80048; 80053; 80076; 80202; 81001; 82040; 82565; 82803; 82947; 83605; 83735; 84100; 84484; 85025; 85610; 87040; 87086; 87088; 87186; 87635; 90999; 93005; 94002; 94003; 94640; 99285; C1758; J0611; J1643; J1956; J2185; J2250; J3010; J3370

== ENCOUNTER 2022-05-02 11:33 | Outpatient (REF) | payer OTHER, SELFPAY ==
[2022-05-02 11:53] LABS: MANUAL DIFF FLAG NO
[2022-05-02 12:16] LABS: Basophils Percent Auto 0.5 % (0-2); Eosinophils Absolute Auto 0.3 X10*3/uL (0.0-0.4); Eosinophils Percent Auto 3.8 % (0-4); Hematocrit 30.7 % (37.0-47.0); Hemoglobin 9.3 g/dl (12.0-16.0); Imm Gran Abs Auto 0.02 X10*3/uL (0.00-0.03); Imm Gran Pct Auto 0.3 % (0.0-0.4); Lymphocytes Absolute Auto 1.4 X10*3/uL (1.2-4.9); Lymphocytes Percent Auto 21.9 % (20-40); Mean Corpuscular HGB Conc 30.3 g/dl (31.0-35.0); Mean Corpuscular Hemoglobin 29.7 pg (27.0-33.0); Mean Corpuscular Volume 98.1 fL (80.0-98.0); Mean Platelet Volume 10.4 fL (9.4-12.3); Monocytes Absolute Auto 0.6 X10*3/uL (0.1-1.2); Monocytes Percent Auto 8.6 % (2-11); Neutrophils Absolute Auto 4.2 x10*3/uL (2.0-8.3); Neutrophils Percent Auto 64.9 % (45-73); Platelet Count 307 X10*3/uL (160-400); Red Blood Count 3.13 X10*6/uL (4.20-5.50); Red Cell Distribution Width 14.5 % (11.0-16.0); White Blood Count 6.5 X10*3/uL (4.8-10.8)
[2022-05-02 12:21] LABS: Estimated Average Glucose 117 mg/dL; Hemoglobin A1c % 5.7 %
[2022-05-02 12:59] LABS: Alanine Aminotransferase 7 U/L (0-31); Albumin Level 3.4 g/dL (3.5-5.0); Alkaline Phosphatase 91 U/L (39-117); Anion Gap 12 (12-20); Aspartate Amino Transferase 12 U/L (5-31); Bilirubin Total 0.4 mg/dL (0.0-1.0); Blood Urea Nitrogen 23 mg/dL (9-16); Calcium 7.9 mg/dL (8.4-10.2); Carbon Dioxide 22 mmol/L (22-29); Chloride 113 mmol/L (96-108); Cholesterol 166 mg/dL; Estimated Glomerular Filt Rate 42; Glucose Random 152 mg/dL (60-115); HDL Cholesterol 29 mg/dL; LDL Cholesterol Calculated 114 mg/dl; Potassium 4.4 mmol/L (3.3-5.1); Sodium 143 mmol/L (135-145); Total Protein 6.3 g/dL (6.5-8.0); Triglycerides 117 mg/dL
[2022-05-02 13:08] LABS: Creatinine Urine 79.71 mg/dL; Microalbum/Creatinine Ratio Ur 173.1 ug/mg cr
[2022-05-02 13:26] LABS: Vitamin B12 230 pg/mL (200-900)
== END 2022-05-02 11:34 | disposition home or self-care (01) ==
LOC: HO.LAB 11:33
PROVIDERS: PCP Internal Medicine; Visit Provider Internal Medicine
DX: I12.9 Hypertensive chronic kidney disease with stage 1 through stage 4 chronic kidney disease, or unspecified chronic kidney disease (principal); E11.22 Type 2 diabetes mellitus with diabetic chronic kidney disease; N18.9 Chronic kidney disease, unspecified; N17.9 Acute kidney failure, unspecified; F32.5 Major depressive disorder, single episode, in full remission
CPT/HCPCS: 36415; 80053; 80061; 82043; 82607; 83036; 85025

== ENCOUNTER 2022-05-04 13:32 | Outpatient (REF) | payer OTHER, SELFPAY ==
--- NOTE | ~2022-05-04 | MM_ITS ---
EXAMINATION: MM SCREENING DIGITAL BREAST TOMOSYNTHESIS, BILATERAL CLINICAL INFORMATION: Screening. Asymptomatic. The lifetime risk of breast cancer based on the Tyrer-Cuzick Model is 4%. COMPARISON: Mammography: 04/28/2021, 04/16/2020, 05/15/2018 TECHNIQUE: Digital breast tomosynthesis is performed in both the craniocaudal and mediolateral oblique views along with computer-aided detection (CAD). Synthesized 2D images are generated from the tomosynthesis. Additional left MLO view is provided. FINDINGS: The breasts are almost entirely fatty (ACR BI-RADS breast composition Category a). There are no significant masses, abnormal calcifications, or other abnormalities. No architectural abnormality or developing density or significant change from prior studies. Stromal markings are similar to prior exam. No axillary adenopathy. Skin contours are smooth. MM/MM tomosynthesis screening BI IMPRESSION: No mammographic evidence of malignancy. ASSESSMENT: BI-RADS 1: Negative RECOMMENDATION: Routine annual mammography screening. This patient's information was entered into a reminder system with a target due date for their next mammogram.
== END 2022-05-04 13:33 | disposition home or self-care (01) ==
LOC: HO.MAMMO 13:32
PROVIDERS: PCP Internal Medicine; Visit Provider Internal Medicine
DX: Z12.31 Encounter for screening mammogram for malignant neoplasm of breast (principal)
CPT/HCPCS: 77063; 77067

== ENCOUNTER → 2022-05-23 14:35 | Outpatient (BNVA) | payer OTHER, SELFPAY | PROVIDERS: PCP Internal Medicine; Visit Provider Nurse Practitioner Family | DX: N39.42 Incontinence without sensory awareness (principal); N39.41 Urge incontinence; R33.9 Retention of urine, unspecified; R35.0 Frequency of micturition | CPT/HCPCS: 51700; 99212 ==

== ENCOUNTER 2022-06-09 14:46 | Inpatient (IN) | payer OTHER, SELFPAY ==
[2022-06-09] VITALS (7 sets, daily range): BP systolic 114–150; BP diastolic 58–90; PULSE 59–62; RESP 10–17; TEMP 36.4; O2SAT 93–97; BMI 48.2
--- NOTE | ~2022-06-09 | XR_ITS ---
EXAMINATION: XR CHEST CLINICAL INFORMATION: Altered mental status COMPARISON: 06/08/2022 TECHNIQUE: Frontal view of the chest was obtained. FINDINGS: Cardiomegaly and pulmonary venous congestion without overt edema. Diffuse bronchial wall thickening. No discrete consolidation. No pleural effusion or pneumothorax. No acute osseous abnormalities. XR/XR chest 1V IMPRESSION: * Cardiomegaly and pulmonary venous congestion without overt edema. * Diffuse bronchial wall thickening suggestive of bronchitis.
--- NOTE | ~2022-06-09 | CT_ITS ---
EXAMINATION: CT HEAD WITHOUT CONTRAST CLINICAL INFORMATION: Unresponsive episode COMPARISON: 06/09/2022 TECHNIQUE: Contiguous axial imaging was performed from the skull base to vertex without intravenous administration of contrast. This CT examination was performed using dose optimization techniques as appropriate, variously including the following: *Automated exposure control *Adjustment of mA and/or kV according to patient size (this includes techniques or standardized protocols for targeted exams where dose is matched to indication/reason for exam; i.e. extremities or head) *Use of iterative reconstruction technique DLP: 751 mGy-cm FINDINGS: There is no evidence of acute intracranial hemorrhage or territorial infarction. No abnormal mass-effect or midline shift is seen. Mehta to white matter differentiation is well preserved. No extra-axial fluid collections are identified. The ventricles are normal in size. There is no abnormal attenuation within the brain parenchyma. The osseous structures and soft tissues are normal. Partially opacified mastoid air cells, left greater than right. Mucosal thickening of the right sphenoid sinus. CT/CT head/brain wo IV con IMPRESSION: No acute intracranial pathology.
--- NOTE | ~2022-06-09 | XR_ITS ---
EXAMINATION: XR CHEST CLINICAL INFORMATION: Hypoxic COMPARISON: 06/13/2022 TECHNIQUE: Frontal view of the chest was obtained. FINDINGS: Lung volumes are symmetric. Prominent central vasculature noted with patchy perihilar opacities suggesting edema. No evidence of pneumothorax. Small pleural effusions are difficult to exclude in this setting. Cardiac silhouette remains enlarged. No acute osseous findings are seen. XR/XR chest 1V IMPRESSION: Prominent central vasculature with patchy perihilar opacities suggesting edema. Enlarged cardiac silhouette.
--- NOTE | ~2022-06-09 | XR_ITS ---
EXAMINATION: XR CHEST CLINICAL INFORMATION: Acute mental status change. Shortness of breath. Rule out pneumonia. COMPARISON: Previous chest x-ray most recent 06/09/2022 TECHNIQUE: Frontal view of the chest was obtained. FINDINGS: The cardiac and mediastinal contours are stable. There is again enlarged cardiac silhouette and pulmonary venous redistribution questionable for mild CHF. Evaluation of the lung bases is somewhat limited due to overlying soft tissues. No definite pneumonia. New left upper lung subsegmental atelectasis. No pleural effusion or pneumothorax. Postsurgical changes to the cervical spine. Degenerative changes of the spine thoracic spine and shoulders. XR/XR chest 1V IMPRESSION: Question mild CHF similar to previous exam. New left upper lung subsegmental atelectasis. No definite pneumonia.
--- NOTE | ~2022-06-09 | CT_ITS ---
EXAMINATION: CT ABDOMEN AND PELVIS WITHOUT CONTRAST CLINICAL INFORMATION: Acute kidney injury. Question obstruction. COMPARISON: Multiple priors, most recent CT abdomen/pelvis dated 04/10/2022. TECHNIQUE: Multidetector volumetric imaging was performed from the superior aspect of the liver through the pubic symphysis. Sagittal and coronal reformatted images were obtained on the technologist's workstation. This CT examination was performed using dose optimization techniques as appropriate, variously including the following: *Automated exposure control *Adjustment of mA and/or kV according to patient size (this includes techniques or standardized protocols for targeted exams where dose is matched to indication/reason for exam; i.e. extremities or head) *Use of iterative reconstruction technique DLP: 1114 mGy-cm FINDINGS: LUNG BASES: Mild bibasilar atelectasis. Partially visualized cardiomegaly. Coronary artery calcifications. LIVER, GALLBLADDER, AND BILIARY TREE: The liver is normal in size, shape, and attenuation. No focal hepatic lesion or biliary ductal dilatation is present. Status post cholecystectomy. PANCREAS: Unremarkable. SPLEEN: Unremarkable. ADRENAL GLANDS: Unremarkable. KIDNEYS AND URETERS: The kidneys are normal in size, shape, and attenuation. Ovoid hypodense focus within the upper pole the right kidney measuring up to 5.3 x 4.3 cm and -3 Hounsfield units. Findings are unchanged when compared to the prior examination and may represent a simple cyst versus angiomyolipoma. Mild right and [id number] left hydroureteronephrosis, new when compared to the prior examination. No obstructing stone. BLADDER: Unremarkable. No associated calcification. GASTROINTESTINAL TRACT: No small or large bowel obstruction. Moderate stool burden, which could indicate a degree of constipation. No bowel wall thickening or inflammatory change. Unremarkable appendix. PERITONEAL CAVITY: No intra-abdominal free air or free fluid. No large intra-abdominal mass or organized fluid collection/abscess formation. ABDOMINAL WALL: No significant hernia is appreciated. LYMPH NODES: No significant lymphadenopathy. VASCULAR: No abdominal aortic dilatation. Atherosclerotic calcifications. PELVIC VISCERA: The uterus and adnexa are unremarkable. OSSEOUS STRUCTURES: Unremarkable. CT/CT abdomen pelvis wo IV con IMPRESSION: 1. Mild right and [id number] left hydroureteronephrosis, new when compared to the prior examination. No obstructing stone. Unremarkable urinary bladder without associated calcification. 2. Moderate stool burden, which could indicate a degree of constipation. No small or large bowel obstruction. No bowel wall thickening or inflammatory change. Unremarkable appendix. 3. No intra-abdominal mass, lymphadenopathy, or ascites. 4. Additional chronic findings are unchanged. Fleischner guidelines were followed.
--- NOTE | ~2022-06-09 | CT_ITS ---
EXAMINATION: CT HEAD WITHOUT CONTRAST CLINICAL INFORMATION: Altered mental status. COMPARISON: CT dated 06/09/2022. TECHNIQUE: Contiguous axial imaging was performed from the skullbase to vertex without intravenous administration of contrast. This CT examination was performed using dose optimization techniques as appropriate, variously including the following: *Automated exposure control *Adjustment of mA and/or kV according to patient size (this includes techniques or standardized protocols for targeted exams where dose is matched to indication/reason for exam; i.e. extremities or head) *Use of iterative reconstruction technique DLP: 823 mGy-cm. FINDINGS: There is no evidence of acute intracranial hemorrhage or territorial infarction. No abnormal mass effect or midline shift is seen. No extra-axial fluid collections are identified. Mild chronic white matter microangiopathic changes noted. The ventricles are normal in size. Small chronic infarcts again visible in the superior right cerebellar hemisphere. The osseous structures and soft tissues are normal. The mastoid air cells are well aerated. There are aerosolized secretions in a fluid level in the right sphenoid sinus. Mild mucosal thickening also noted in the right maxillary antrum. The remaining paranasal sinuses are fairly well aerated. CT/CT head/brain wo IV con IMPRESSION: No acute intracranial hemorrhage or territorial infarction.
--- NOTE | ~2022-06-09 | CT_ITS ---
EXAMINATION: CT HEAD WITHOUT CONTRAST CLINICAL INFORMATION: Altered mental status COMPARISON: CT head 01/11/2022 TECHNIQUE: Contiguous axial imaging was performed from the skull base to vertex without intravenous administration of contrast. Coronal and sagittal reformatted images are performed at the CT scanner. [This CT examination was performed using dose optimization techniques as appropriate, variously including the following: *Automated exposure control *Adjustment of mA and/or kV according to patient size (this includes techniques or standardized protocols for targeted exams where dose is matched to indication/reason for exam; i.e. extremities or head) *Use of iterative reconstruction technique] DLP: 746 mGy-cm. FINDINGS: There is no evidence of acute intracranial hemorrhage or territorial infarction. No abnormal mass-effect or midline shift is seen. Mehta to white matter differentiation is well preserved. No extra-axial fluid collections are identified. There is generalized global volume loss. There is moderate prominence of the ventricles and the sulci . There is mild hypodensity of the periventricular white matter due to chronic small vessel ischemic disease. There are vascular calcifications of the internal carotid arteries bilaterally. There is no osseous abnormality. The mastoid air cells and visualized portions of the paranasal sinuses are well-aerated. CT/CT head/brain wo IV con IMPRESSION: No acute intracranial pathology.
--- NOTE | 2022-06-09 15:03 | ECG_ITS ---
Test Reason : WEAKNESS Blood Pressure : / mmHG Vent. Rate : 060 BPM Atrial Rate : 060 BPM P-R Int : 192 ms QRS Dur : 084 ms QT Int : 438 ms P-R-T Axes : 082 017 013 degrees QTc Int : 438 ms Normal sinus rhythm Low voltage QRS Borderline ECG When compared with ECG of 10-APR-2022 00:45, Premature atrial complexes are no longer Present Referred By: Jesús Mayen Electronically Signed By:Gilbert Chavarria
--- NOTE | 2022-06-09 15:06 | ED_ITS ---
HPI - Altered Mental Status General Chief Complaint: Altered Mental Status Stated Complaint: ALTERED SINCE MONDAY PER FAMILY Time Seen by Provider: 06/09/22 15:00 Related Data Home Medications Medication Instructions Recorded Confirmed lancing device with lancets kit #1 ea 03/24/21 03/13/22 ([employer] Lancing Device kit) metoprolol tartrate 25 mg tablet 25 mg PO BID 07/15/21 06/09/22 quetiapine 300 mg tablet 300 mg PO BEDTIME PRN Insomnia 07/15/21 06/09/22 albuterol sulfate 90 mcg/actuation 2 puff inhalation QID PRN 11/30/21 06/09/22 aerosol inhaler Respiratory Distress duloxetine 30 mg capsule,delayed 30 mg PO DAILY 11/30/21 06/09/22 release ferrous sulfate 325 mg (65 mg 325 mg PO DAILY 11/30/21 06/09/22 iron) tablet fluoxetine 20 mg capsule 20 mg PO DAILY 11/30/21 06/09/22 ezetimibe 10 mg tablet 10 mg PO DAILY 06/09/22 06/09/22 gabapentin 600 mg tablet 600 mg PO TID 06/09/22 06/09/22 insulin lispro 100 unit/mL 6 unit subcut TID 06/09/22 06/09/22 subcutaneous pen (Humalog KwikPen (U-100) Insulin) lisinopril 20 1 tab PO DAILY 06/09/22 06/09/22 mg-hydrochlorothiazide 25 mg tablet quetiapine 200 mg tablet 200 mg PO BEDTIME 06/09/22 06/09/22 rosuvastatin 20 mg tablet 20 mg PO BEDTIME 06/09/22 06/09/22 Previous Rx's Medication Instructions Recorded apixaban 5 mg tablet (Eliquis) 5 mg PO BID #60 tabs 01/26/21 blood sugar diagnostic (FreeStyle #100 ea 01/26/21 Lite Strips) lancets 28 gauge (FreeStyle #100 ea 01/26/21 Lancets) pen needle, diabetic 32 gauge x #50 ea 01/26/21 (Pen Needle) amlodipine 5 mg tablet 5 mg PO DAILY #30 tabs 01/15/22 sulfamethoxazole 800 1 tab PO .COMPLEX 30 days #30 tabs 03/23/22 mg-trimethoprim 160 mg tablet (Bactrim DS) vibegron 75 mg tablet (Gemtesa) 75 mg PO DAILY 30 days #30 tabs 05/23/22 Allergies Allergy/AdvReac Type Severity Reaction Status Date / Time atorvastatin [ATORVASTATIN] Allergy Intermediate SWELLING Verified 05/23/22 14:53 morphine [MORPHINE] Allergy Intermediate RASH Verified 05/23/22 14:53 zolpidem [From AMBIEN] AdvReac Intermediate SLEEP WALKS Verified 05/23/22 14:53 [facility] Past Medical History Medical History Anxiety and depression Arthritis Asthma Atrial flutter CAD (coronary artery disease) Chronic kidney disease, stage 3 Chronic pain CKD (chronic kidney disease) stage 4, GFR 15-29 ml/min Diabetes mellitus High cholesterol History of myocardial infarction HTN (hypertension) Hyperglycemia Lateral malleolar fracture Limited mobility Multiple falls Myocardial infarction On anticoagulant therapy On beta lanette at home Paroxysmal atrial fibrillation Type 2 diabetes mellitus with unspecified complications Urgency incontinence Surgical History H/O neck surgery History of cataract extraction History of cystoscopy History of heart artery stent Hx of cholecystectomy Hx of colonoscopy Family History Family History Father No problems noted. Mother Diabetes High blood pressure Stomach cancer Social History Social History Household Members: Unknown / Unable to assess Housing: Unknown / Unable to assess Are you a primary resident care supervisor to a significant other at home: No Unable to assess alcohol history related to: Unable to respond and Unknown Alcohol intake: never Patient Tobacco Use Status: Former Tobacco user Quit Date: 2005 Tobacco use type: Cigarette Years Smoked: 30-40 years Smoked in Last 30 Days: No Second Hand Smoke Exposure: No Use of substances other than those prescribed or required for medical reasons: Yes Substance Use Type: Crack/Cocaine Advance Directives: No Advance Directives Information Provided: No service: No Current occupational status: disabled Physical Exam ED Vital Signs: Vital Signs - 24 hr 06/09/22 14:57 06/09/22 16:01 06/09/22 17:21 Temperature 97.5 F Pulse Rate 62 60 Respiratory Rate 16 12 Blood Pressure 137/61 123/64 114/58 L Pulse Oximetry 96 Oxygen Delivery Method Room Air BMI result Body Mass Index 48.2 Medications Administered Discontinued Medications Generic Name Dose Route Start Last Admin Trade Name Freq PRN Reason Stop Dose Admin Sodium Chloride 1,000 mls @ 999 mls/hr 06/09/22 15:15 06/09/22 17:42 Ns IV 06/09/22 16:15 Infused .Q1H1M MARY CARMEN Infusion Sodium Chloride 1,000 mls @ 999 mls/hr 06/09/22 15:15 06/09/22 17:35 Ns IV 06/09/22 16:15 999 mls/hr .Q1H1M MARY CARMEN Administration Calcium Gluconate 1 gm in 50 mls @ 200 mls/hr 06/09/22 17:06 06/09/22 17:22 Calcium Gluconate IV 06/09/22 17:20 200 mls/hr ONCE ONE Administration Sodium Bicarbonate 50 meq 06/09/22 17:06 06/09/22 17:20 Sodium Bicarbonate 8.4% 50 Meq/50 Ml Syringe IVPUSH 06/09/22 17:07 50 meq ONCE ONE Administration Medical Decision Making Medical Decision Making [facility] Narrative: 76-year-old female with history of intubation back in March patient has chronic urinary incontinence and was likely the source of her altered mental status this time as was the previous visit I will get a straight cath likely Solis for this patient fluids labs and reassess. 1711 patient found to be hyperkalemic with acute renal failure on top of her chronic renal disease I will start the patient on calcium glucose insulin and bicarbonate. Patient will need admission. Still pending at this time I did write for Rocephin Differential Diagnosis Differential Diagnoses: The differential diagnosis associated with the presentation includes Acute kidney injury urinary tract infection as patient has chronic incontinence altered mental status from fall head injury pneumonia or sepsis or electrolyte abnormality. Admission/Observation Consideration of admission/observation: Escalation of care including admission/observation considered Consult Healthcare Provider Management of the patient was discussed with: Hospitalist Dr. Luu who agreed with the admission. Lab Data [facility] Lab Attestation statement: I reviewed the patient's lab results. Acute on chronic renal failure with hyperkalemia treated aggressively 06/09/22 16:03 06/09/22 16:03 Labs: Lab Results 06/09/22 06/09/22 06/09/22 Range/Units 16:01 16:03 16:03 WBC 7.1 (4.8-10.8) X10*3/uL RBC 3.28 L (4.20-5.50) X10*6/uL Hgb 9.9 L (12.0-16.0) g/dl Hct 32.9 L (37.0-47.0) % MCV 100.3 H (80.0-98.0) fL MCH 30.2 (27.0-33.0) pg MCHC 30.1 L (31.0-35.0) g/dl RDW 15.7 (11.0-16.0) % Plt Count 304 (160-400) X10*3/uL MPV 10.9 (9.4-12.3) fL Immature Gran % (Auto) 0.4 (0.0-0.4) % Neut % (Auto) 74.2 H (45-73) % Lymph % (Auto) 16.3 L (20-40) % [place] % (Auto) 7.5 (2-11) % Eos % (Auto) 1.3 (0-4) % Baso % (Auto) 0.3 (0-2) % Lymph # (Auto) 1.2 (1.2-4.9) X10*3/uL [place] # (Auto) 0.5 (0.1-1.2) X10*3/uL Eos # (Auto) 0.1 (0.0-0.4) X10*3/uL Baso # (Auto) 0.0 (0.0-0.2) X10*3/uL Abs Immat Gran (auto) 0.03 (0.00-0.03) X10*3/uL Absolute Neuts (auto) 5.3 (2.0-8.3) x10*3/uL Absolute Nucleated RBC 0.000 (0.0-0.012) X10*3/uL Nucleated RBC % (auto) 0.0 (0.0-0.2) /100WBC Sodium 141 (135-145) mmol/L Potassium 7.2 H* D (3.3-5.1) mmol/L Chloride 113 H (96-108) mmol/L Carbon Dioxide 19 L (22-29) mmol/L Anion Gap 16 (12-20) BUN 72 H (9-16) mg/dL Creatinine 3.65 H (0.5-1.4) mg/dL Estim Creat Clear Calc 16.6 Estimated GFR 12 POC Glucose 122 H (60-115) mg/dL Random Glucose 133 H (60-115) mg/dL Lactic Acid (0.5-2.0) mmol/L Calcium 7.5 L (8.4-10.2) mg/dL Total Bilirubin 0.4 (0.0-1.0) mg/dL Direct Bilirubin 0.1 (0.0-0.5) mg/dL AST 9 (5-31) U/L ALT 8 (0-31) U/L Alkaline Phosphatase 117 (39-117) U/L Troponin I High Sens (<3.5-17.0) ng/L B-Natriuretic Peptide (<100) pg/mL Total Protein 7.4 (6.5-8.0) g/dL Albumin 4.0 (3.5-5.0) g/dL Lipase 11 (8-78) U/L Ethyl Alcohol mg/dL COVID-19 (REE) (Negative) COVID-19 Clin Com 06/09/22 06/09/22 06/09/22 Range/Units 16:03 16:03 16:03 WBC (4.8-10.8) X10*3/uL RBC (4.20-5.50) X10*6/uL Hgb (12.0-16.0) g/dl Hct (37.0-47.0) % MCV (80.0-98.0) fL MCH (27.0-33.0) pg MCHC (31.0-35.0) g/dl RDW (11.0-16.0) % Plt Count (160-400) X10*3/uL MPV (9.4-12.3) fL Immature Gran % (Auto) (0.0-0.4) % Neut % (Auto) (45-73) % Lymph % (Auto) (20-40) % [place] % (Auto) (2-11) % Eos % (Auto) (0-4) % Baso % (Auto) (0-2) % Lymph # (Auto) (1.2-4.9) X10*3/uL [place] # (Auto) (0.1-1.2) X10*3/uL Eos # (Auto) (0.0-0.4) X10*3/uL Baso # (Auto) (0.0-0.2) X10*3/uL Abs Immat Gran (auto) (0.00-0.03) X10*3/uL Absolute Neuts (auto) (2.0-8.3) x10*3/uL Absolute Nucleated RBC (0.0-0.012) X10*3/uL Nucleated RBC % (auto) (0.0-0.2) /100WBC Sodium (135-145) mmol/L Potassium (3.3-5.1) mmol/L Chloride (96-108) mmol/L Carbon Dioxide (22-29) mmol/L Anion Gap (12-20) BUN (9-16) mg/dL Creatinine (0.5-1.4) mg/dL Estim Creat Clear Calc Estimated GFR POC Glucose (60-115) mg/dL Random Glucose (60-115) mg/dL Lactic Acid (0.5-2.0) mmol/L Calcium (8.4-10.2) mg/dL Total Bilirubin (0.0-1.0) mg/dL Direct Bilirubin (0.0-0.5) mg/dL AST (5-31) U/L ALT (0-31) U/L Alkaline Phosphatase (39-117) U/L Troponin I High Sens 3.3 (<3.5-17.0) ng/L B-Natriuretic Peptide (<100) pg/mL Total Protein (6.5-8.0) g/dL Albumin (3.5-5.0) g/dL Lipase (8-78) U/L Ethyl Alcohol < 10 mg/dL COVID-19 (REE) Negative (Negative) COVID-19 Clin Com See Note 06/09/22 06/09/22 Range/Units 16:03 16:22 WBC (4.8-10.8) X10*3/uL RBC (4.20-5.50) X10*6/uL Hgb (12.0-16.0) g/dl Hct (37.0-47.0) % MCV (80.0-98.0) fL MCH (27.0-33.0) pg MCHC (31.0-35.0) g/dl RDW (11.0-16.0) % Plt Count (160-400) X10*3/uL MPV (9.4-12.3) fL Immature Gran % (Auto) (0.0-0.4) % Neut % (Auto) (45-73) % Lymph % (Auto) (20-40) % [place] % (Auto) (2-11) % Eos % (Auto) (0-4) % Baso % (Auto) (0-2) % Lymph # (Auto) (1.2-4.9) X10*3/uL [place] # (Auto) (0.1-1.2) X10*3/uL Eos # (Auto) (0.0-0.4) X10*3/uL Baso # (Auto) (0.0-0.2) X10*3/uL Abs Immat Gran (auto) (0.00-0.03) X10*3/uL Absolute Neuts (auto) (2.0-8.3) x10*3/uL Absolute Nucleated RBC (0.0-0.012) X10*3/uL Nucleated RBC % (auto) (0.0-0.2) /100WBC Sodium (135-145) mmol/L Potassium (3.3-5.1) mmol/L Chloride (96-108) mmol/L Carbon Dioxide (22-29) mmol/L Anion Gap (12-20) BUN (9-16) mg/dL Creatinine (0.5-1.4) mg/dL Estim Creat Clear Calc Estimated GFR POC Glucose (60-115) mg/dL Random Glucose (60-115) mg/dL Lactic Acid 0.6 (0.5-2.0) mmol/L Calcium (8.4-10.2) mg/dL Total Bilirubin (0.0-1.0) mg/dL Direct Bilirubin (0.0-0.5) mg/dL AST (5-31) U/L ALT (0-31) U/L Alkaline Phosphatase (39-117) U/L Troponin I High Sens (<3.5-17.0) ng/L B-Natriuretic Peptide 259 H (<100) pg/mL Total Protein (6.5-8.0) g/dL Albumin (3.5-5.0) g/dL Lipase (8-78) U/L Ethyl Alcohol mg/dL COVID-19 (REE) (Negative) COVID-19 Clin Com Independent Interpretation I performed an independent interpretation of an: EKG and Plain X-Ray Interpretation: Rate 60 patient does have hyperkalemia there is no signs of peaked T-waves or signs of hyperkalemia at this time. Radiology Impression Discussion of test interpretation with radiology: I have reviewed the ra diologist's reading. Independent Historian Clinical information obtained from an independent historian. History obtained from or confirmed by: EMS and Other External Record Review External record reviewed: Inpatient record, Outpatient record and Outside ED record Prescription Management I considered prescription management with: Other Patient hyperkalemic requiring insulin glucose bicarbonate and calcium Chronic Conditions Patient?s care impacted by: Diabetes and Hypertension Social Determinants Patient?s care significantly limited by Social Determinants of Health including: Inadequate housing, Low income and Other Social Determinant of Health Lives with family Core Measures AMI core measures followed: Yes Critical Care Time Critical Care Time Critical Care Time: Yes Total Critical Care Time: 50 Attestation: Patient came with altered mental status her old son mass workup was not manifesting any pain to it found that she was likely dehydrated with hyperkalemia and acute on chronic renal failure requiring fluids and medications. Discharge Plan Discharge Clinical Impression: Acute hyperkalemia, Acute UTI, Altered mental status Patient Disposition: Admitted As Inpatient
--- NOTE | 2022-06-09 15:39 | PHA.MEDREC ---
Pharmacy Consult ? Medication Reconciliation Pharmacy has completed the medication reconciliation. Patient had a bag of her medications at bedside
[2022-06-09 16:05] LABS: Glucose, Whole Blood 122 mg/dL (60-115)
[2022-06-09] MEDS: 0.9 % Sodium Chloride 1,000 ML 999 ML IV ×4 (16:12→19:15)
[2022-06-09 16:28] LABS: MANUAL DIFF FLAG NO
[2022-06-09 16:29] LABS: Basophils Percent Auto 0.3 % (0-2); Eosinophils Absolute Auto 0.1 X10*3/uL (0.0-0.4); Eosinophils Percent Auto 1.3 % (0-4); Hematocrit 32.9 % (37.0-47.0); Hemoglobin 9.9 g/dl (12.0-16.0); Imm Gran Abs Auto 0.03 X10*3/uL (0.00-0.03); Imm Gran Pct Auto 0.4 % (0.0-0.4); Lymphocytes Absolute Auto 1.2 X10*3/uL (1.2-4.9); Lymphocytes Percent Auto 16.3 % (20-40); Mean Corpuscular HGB Conc 30.1 g/dl (31.0-35.0); Mean Corpuscular Hemoglobin 30.2 pg (27.0-33.0); Mean Corpuscular Volume 100.3 fL (80.0-98.0); Mean Platelet Volume 10.9 fL (9.4-12.3); Monocytes Absolute Auto 0.5 X10*3/uL (0.1-1.2); Monocytes Percent Auto 7.5 % (2-11); Neutrophils Absolute Auto 5.3 x10*3/uL (2.0-8.3); Neutrophils Percent Auto 74.2 % (45-73); Platelet Count 304 X10*3/uL (160-400); Red Blood Count 3.28 X10*6/uL (4.20-5.50); Red Cell Distribution Width 15.7 % (11.0-16.0); White Blood Count 7.1 X10*3/uL (4.8-10.8)
[2022-06-09 16:38] LABS: Lactic Acid 0.6 mmol/L (0.5-2.0)
[2022-06-09 16:41] LABS: Ethanol < 10 mg/dL
[2022-06-09 16:46] LABS: COVID-19 Test Negative (Negative); IDNOW Serial# BCCEAD1C
[2022-06-09 16:48] LABS: B Type Natriuretic Peptide 259 pg/mL (<100)
[2022-06-09 16:50] LABS: Troponin-I High Sensitivity 3.3 ng/L (<3.5-17.0)
[2022-06-09 17:00] LABS: Alanine Aminotransferase 8 U/L (0-31); Alkaline Phosphatase 117 U/L (39-117); Anion Gap 16 (12-20); Aspartate Amino Transferase 9 U/L (5-31); Bilirubin Direct 0.1 mg/dL (0.0-0.5); Bilirubin Total 0.4 mg/dL (0.0-1.0); Blood Urea Nitrogen 72 mg/dL (9-16); Calcium 7.5 mg/dL (8.4-10.2); Carbon Dioxide 19 mmol/L (22-29); Chloride 113 mmol/L (96-108); Creatinine Clr Calc Pharmacy 16.6; Estimated Glomerular Filt Rate 12; Glucose Random 133 mg/dL (60-115); Lipase 11 U/L (8-78); Potassium 7.2 mmol/L (3.3-5.1); Sodium 141 mmol/L (135-145); Total Protein 7.4 g/dL (6.5-8.0)
[2022-06-09] MEDS: Sodium Bicarbonate 8.4% 50 MEQ/50 ML SYRINGE IVPUSH (17:20)
[2022-06-09] MEDS: Calcium Gluconate/NaCl,Iso-Osm 1 GM/50 ML PLAST..BAG IV (17:22)
[2022-06-09] MEDS: Insulin Regular, Human 100 UNIT/ML 3 ML VIAL 10 UNIT IVPUSH (18:35)
[2022-06-09] MEDS: cefTRIAXone sodium 1 GM in 0.9 % Sodium Chloride 50 ML IV (18:36)
[2022-06-09 18:40] LABS: Glucose, Whole Blood 172 mg/dL (60-115)
[2022-06-09] MEDS: Sodium Zirconium Cyclosilicate 10 GM POWD.PACK PO (18:42)
[2022-06-09 18:49] LABS: Appearance Urine Cloudy; Color Urine Yellow; Glucose Urine UA Negative (Negative); Leukocyte Esterase Urine Large (3+) (Negative); Nitrite Urine Negative (Negative); Specific Gravity - Urine 1.015 (1.005-1.025); UMIC TRIGGER UACC YES; Urine Blood Large (3+) (Negative); Urine Ketones Negative (Negative); Urine Protein 30 (1+) mg/dL (Neg-Trace)
[2022-06-09 19:00] LABS: Bacteria Urine None Seen (None Seen); Hyaline Casts Urine 0-2 /LPF (0-2); RBC Urine >20 /HPF (0-2); Squamous Epithelial Cell Urine 0-2 /HPF (0-2); UACC Culture Trigger YES; WBC Urine >50 /HPF (0-5)
[2022-06-09 19:04] LABS: Anion Gap 16 (12-20); Blood Urea Nitrogen 68 mg/dL (9-16); Carbon Dioxide 17 mmol/L (22-29); Chloride 116 mmol/L (96-108); Creatinine Clr Calc Pharmacy 18.4; Estimated Glomerular Filt Rate 14; Glucose Random 164 mg/dL (60-115); Potassium 6.5 mmol/L (3.3-5.1); Sodium 142 mmol/L (135-145)
[2022-06-09] MEDS: Dextrose 10 % 1,000 ML 200 ML IVCONT (19:15)
[2022-06-09 19:24] LABS: Glucose, Whole Blood 161 mg/dL (60-115)
--- NOTE | 2022-06-09 20:22 | P.HPHOSP_ITS ---
History of Present Illness Date of Service: 06/09/22 Attending physician on admission: Marcelo Kam Chief Complaint: AMS 76-year-old female patient with past medical history significant for hypertension, hyperlipidemia, diabetes mellitus on insulin, coronary artery disease, paroxysaml atrial flutter on eliquis, chronic bilateral leg weakness on motorized chair, history of cervical spine surgery, history of anxiety depression, chronic pain syndrome, history of chronic kidney disease with history of bilateral hydronephrosis / hydroureter and distended bladder?presented to the ED earlier today with family for evaluation of AMS ongoing since monday. The patient is a&ox3 but is confused and unable to give history. Her daughter states pt woke up monday confused and this has worsened since. She has reported dark urine. No fevers, chills and pt denies dysuria, hematuria. urgency, increased frequency. On arrival, vital signs stable. No leukocytosis. Creatinine 3.65, baseline 1.25. BUN 72. Sodium 141, potassium 7.2, chloride 113, CO2 19. glucose 133. BNP 259. Troponin 3.3. Treated with 10 units regular insulin, D10, calcium gluconate, Lokelma, and 4 L IV NS with improvement in potassium to 6.5. Minimal improvement in creatinine to 3.28, BUN 68. Chloride 116, CO2 17. Head CT is without any acute intracranial abnormalities. CXR showing pulmonary vascular congestion without any overt edema or effusions. No acute cardiopulmonary abnormality. Urinalysis showing 3+ leukocytes, negative nitrites, 3+ blood, positive urinary sediment, negative bacteria. Cultures pending. Given dose of 1 g ceftriaxone for empiric coverage for UTI. Review of Systems Review of Systems: Yes Unobtainable due to mental status FOR[facility] Medical History (Updated 06/09/22 @ 20:52 by DILIP Neri) LETHA (acute kidney injury) Anxiety and depression Arthritis Asthma Atrial flutter CAD (coronary artery disease) Chronic kidney disease, stage 3 Chronic pain CKD (chronic kidney disease) stage 4, GFR 15-29 ml/min Diabetes mellitus High cholesterol History of myocardial infarction HTN (hypertension) Hyperglycemia Lateral malleolar fracture Limited mobility Multiple falls Myocardial infarction On anticoagulant therapy On beta lanette at home Paroxysmal atrial fibrillation Type 2 diabetes mellitus with unspecified complications Urgency incontinence Family History Father No problems noted. Mother Diabetes High blood pressure Stomach cancer Surgical History H/O neck surgery History of cataract extraction History of cystoscopy History of heart artery stent Hx of cholecystectomy Hx of colonoscopy Social History Household Members: Unknown / Unable to assess Housing: Unknown / Unable to assess Are you a primary respiratory care instructor to a significant other at home: No Unable to assess alcohol history related to: Unable to respond and Unknown Alcohol intake: never Patient Tobacco Use Status: Former Tobacco user Quit Date: 2005 Tobacco use type: Cigarette Years Smoked: 30-40 years Smoked in Last 30 Days: No Second Hand Smoke Exposure: No Use of substances other than those prescribed or required for medical reasons: Yes Substance Use Type: Crack/Cocaine Advance Directives: No Advance Directives Information Provided: No service: No Current occupational status: disabled Meds Allergies Allergy/AdvReac Type Severity Reaction Status Date / Time atorvastatin [ATORVASTATIN] Allergy Intermediate SWELLING Verified 05/23/22 14:53 morphine [MORPHINE] Allergy Intermediate RASH Verified 05/23/22 14:53 zolpidem [From AMBIEN] AdvReac Intermediate SLEEP WALKS Verified 05/23/22 14:53 Active Medications: Current Medications Acetaminophen (Acetaminophen 325 Mg Tablet) 650 mg PO Q6H PRN PRN Reason: Pain, Mild (Pain Scale 1-3) Albuterol Sulfate (Albuterol Sulfate 90 Mcg 8 Gm Inhaler) 2 puff INHALE QID PRN PRN Reason: Respiratory Distress Amlodipine Besylate (Amlodipine Besylate 5 Mg Tablet) 5 mg PO DAILY MARY CARMEN; Protocol Apixaban (Apixaban 5 Mg Tablet) 5 mg PO BID MARY CARMEN Docusate Sodium (Docusate Sodium 100 Mg Capsule) 100 mg PO DAILY PRN PRN Reason: Constipation Ezetimibe (Ezetimibe 10 Mg Tablet) 10 mg PO DAILY MARY CARMEN Fluoxetine HCl (Fluoxetine Hcl 20 Mg Capsule) 20 mg PO DAILY MARY CARMEN Gabapentin (Gabapentin 600 Mg Tablet) 600 mg PO TID MARY CARMEN Glucose (Glucose Gel 15 Gm Gel..Gram.) 15 gm PO Q15M PRN; Protocol PRN Reason: per Hypoglycemia Standing Ord. Dextrose (D10) 1,000 mls @ 200 mls/hr IVCONT .Q5H [facility] Last Admin: 06/09/22 19:15 Dose: 200 mls/hr Dextrose (D10) 250 mls @ 750 mls/hr IV Q15M PRN; Protocol PRN Reason: per Hypoglycemia Standing Ord. Insulin Human Lispro (Insulin Lispro 100 Unit/Ml 3 Ml Vial) 0 unit SUBCUT QIDACHS MARY CARMEN; Protocol Insulin Human Regular (Insulin Regular, Human 100 Unit/Ml 3 Ml Vial) 5 unit IVPUSH ONCE ONE Stop: 06/09/22 20:21 Metoprolol Tartrate (Metoprolol Tartrate 25 Mg Tablet) 25 mg PO BID MARY CARMEN; P rotocol Non-Formulary Medication (Ferrous Sulfate) 325 mg PO DAILY MARY CARMEN Non-Formulary Medication (Rosuvastatin) 20 mg PO BEDTIME MARY CARMEN Non-Formulary Medication (Vibegron [Gemtesa]) 75 mg PO DAILY MARY CARMEN Ondansetron HCl (Ondansetron Hcl 4 Mg/2 Ml Vial) 4 mg IVPUSH Q8H PRN PRN Reason: Nausea and Vomiting Pharmacy Consult (Consult Rx Perform Med Rec) 1 each MISCELLANE ONCE PRN PRN Reason: Consult order Quetiapine Fumarate (Quetiapine Fumarate 200 Mg Tablet) 200 mg PO BEDTIME MARY CARMEN Quetiapine Fumarate (Quetiapine Fumarate 300 Mg Tablet) 300 mg PO BEDTIME PRN PRN Reason: Insomnia Sodium Chloride (0.9 % Sodium Chloride Flush 3 Ml Syringe) 3 ml IVFLUSH QSHIFT [facility] Home Medications Medication Instructions Recorded Confirmed Last Taken Type lancing device with lancets kit #1 ea 03/24/21 03/13/22 Unknown History ([facility] Lancing Device kit) metoprolol tartrate 25 mg tablet 25 mg PO BID 07/15/21 06/09/22 11/03/21 08:15 History quetiapine 300 mg tablet 300 mg PO BEDTIME PRN Insomnia 07/15/21 06/09/22 10/11/21 History albuterol sulfate 90 mcg/actuation 2 puff inhalation QID PRN 11/30/21 06/09/22 Unknown History aerosol inhaler Respiratory Distress duloxetine 30 mg capsule,delayed 30 mg PO DAILY 11/30/21 06/09/22 Unknown History release ferrous sulfate 325 mg (65 mg 325 mg PO DAILY 11/30/21 06/09/22 Unknown History iron) tablet fluoxetine 20 mg capsule 20 mg PO DAILY 11/30/21 06/09/22 Unknown History ezetimibe 10 mg tablet 10 mg PO DAILY 06/09/22 06/09/22 Unknown History gabapentin 600 mg tablet 600 mg PO TID 06/09/22 06/09/22 Unknown History insulin lispro 100 unit/mL 6 unit subcut TID 06/09/22 06/09/22 Unknown History subcutaneous pen (Humalog KwikPen (U-100) Insulin) lisinopril 20 1 tab PO DAILY 06/09/22 06/09/22 Unknown History mg-hydrochlorothiazide 25 mg tablet quetiapine 200 mg tablet 200 mg PO BEDTIME 06/09/22 06/09/22 Unknown History rosuvastatin 20 mg tablet 20 mg PO BEDTIME 06/09/22 06/09/22 Unknown History Physical Exam Vital Signs and Narrative: Vital Signs: Last Vital Signs Temp 97.5 F 06/09/22 14:57 Pulse 60 06/09/22 20:00 Resp 17 06/09/22 20:00 BP 124/67 06/09/22 20:00 Pulse Ox 97 06/09/22 20:00 O2 Del Method Room Air 06/09/22 20:00 BMI result Body Mass Index 48.2 Constitutional - Awake and Alert, No apparent distress Eyes - PERRLA, EOMI Cardiovascular - S1S2, RRR, 2+ edema LLE, 1+ edema RLE Respiratory - Normal lung expansion, Normal respiratory effort, No respiratory distress, CTA bilaterally Gastrointestinal - NT / ND; +BS; No rebound or guarding - No CVA tenderness Extremities - no calf tenderness bilaterally, no swelling Skin - Warm/Dry Neurological - Alert & oriented x3 btu not answering questions appropriately, confused, CN II-XII in tact, 5/5 strength BUE and BLE Psychological - Appropriate affect Results Labs 06/09/22 16:03 06/09/22 18:32 Labs: Laboratory Results - last 24 hr 06/09/22 06/09/22 06/09/22 16:01 16:03 16:03 MCV 100.3 H MCH 30.2 MCHC 30.1 L RDW 15.7 Plt Count 304 MPV 10.9 Immature Gran % (Auto) 0.4 Neut % (Auto) 74.2 H Lymph % (Auto) 16.3 L Preble % (Auto) 7.5 Eos % (Auto) 1.3 Baso % (Auto) 0.3 Lymph # (Auto) 1.2 Preble # (Auto) 0.5 Eos # (Auto) 0.1 Baso # (Auto) 0.0 Abs Immat Gran (auto) 0.03 Absolute Neuts (auto) 5.3 Absolute Nucleated RBC 0.000 Nucleated RBC % (auto) 0.0 Anion Gap 16 Estim Creat Clear Calc 16.6 Estimated GFR 12 POC Glucose 122 H Random Glucose 133 H Lactic Acid Calcium 7.5 L Total Bilirubin 0.4 Direct Bilirubin 0.1 AST 9 ALT 8 Alkaline Phosphatase 117 Troponin I High Sens B-Natriuretic Peptide Total Protein 7.4 Albumin 4.0 Lipase 11 Urine Color Urine Appearance Urine pH Ur Specific Prim Urine Protein Urine Glucose (UA) Urine Ketones Urine Blood Urine Nitrite Ur Leukocyte Esterase Urine RBC Urine WBC Ur Squamous Epith Cells Urine Bacteria Hyaline Casts Ethyl Alcohol COVID-19 (REE) COVID-Cognitive Match 06/09/22 06/09/22 06/09/22 16:03 16:03 16:03 MCV MCH MCHC RDW Plt Count MPV Immature Gran % (Auto) Neut % (Auto) Lymph % (Auto) Preble % (Auto) Eos % (Auto) Baso % (Auto) Lymph # (Auto) Preble # (Auto) Eos # (Auto) Baso # (Auto) Abs Immat Gran (auto) Absolute Neuts (auto) Absolute Nucleated RBC Nucleated RBC % (auto) Anion Gap Estim Creat Clear Calc Estimated GFR POC Glucose Random Glucose Lactic Acid Calcium Total Bilirubin Direct Bilirubin AST ALT Alkaline Phosphatase Troponin I High Sens 3.3 B-Natriuretic Peptide Total Protein Albumin Lipase Urine Color Urine Appearance Urine pH Ur Specific Prim Urine Protein Urine Glucose (UA) Urine Ketones Urine Blood Urine Nitrite Ur Leukocyte Esterase Urine RBC Urine WBC Ur Squamous Epith Cells Urine Bacteria Hyaline Casts Ethyl Alcohol < 10 COVID-19 (REE) Negative COVID-Cognitive Match See Note 06/09/22 06/09/22 06/09/22 16:03 16:22 18:32 MCV MCH MCHC RDW Plt Count MPV Immature Gran % (Auto) Neut % (Auto) Lymph % (Auto) Preble % (Auto) Eos % (Auto) Baso % (Auto) Lymph # (Auto) Preble # (Auto) Eos # (Auto) Baso # (Auto) Abs Immat Gran (auto) Absolute Neuts (auto) Absolute Nucleated RBC Nucleated RBC % (auto) Anion Gap Estim Creat Clear Calc Estimated GFR POC Glucose Random Glucose Lactic Acid 0.6 Calcium Total Bilirubin Direct Bilirubin AST ALT Alkaline Phosphatase Troponin I High Sens B-Natriuretic Peptide 259 H Total Protein Albumin Lipase Urine Color Yellow Urine Appearance Cloudy Urine pH 5.0 Ur Specific Prim 1.015 Urine Protein 30 (1+) H Urine Glucose (UA) Negative Urine Ketones Negative Urine Blood Large (3+) H Urine Nitrite Negative Ur Leukocyte Esterase Large (3+) H Urine RBC >20 H Urine WBC >50 H Ur Squamous Epith Cells 0-2 Urine Bacteria None Seen Hyaline Casts 0-2 Ethyl Alcohol COVID-19 (REE) COVID-Cognitive Match 06/09/22 06/09/22 06/09/22 18:32 18:34 19:20 MCV MCH MCHC RDW Plt Count MPV Immature Gran % (Auto) Neut % (Auto) Lymph % (Auto) Preble % (Auto) Eos % (Auto) Baso % (Auto) Lymph # (Auto) Preble # (Auto) Eos # (Auto) Baso # (Auto) Abs Immat Gran (auto) Absolute Neuts (auto) Absolute Nucleated RBC Nucleated RBC % (auto) Anion Gap 16 Estim Creat Clear Calc 18.4 Estimated GFR 14 POC Glucose 172 H 161 H Random Glucose 164 H Lactic Acid Calcium 7.0 L D Total Bilirubin Direct Bilirubin AST ALT Alkaline Phosphatase Troponin I High Sens B-Natriuretic Peptide Total Protein Albumin Lipase Urine Color Urine Appearance Urine pH Ur Specific Prim Urine Protein Urine Glucose (UA) Urine Ketones Urine Blood Urine Nitrite Ur Leukocyte Esterase Urine RBC Urine WBC Ur Squamous Epith Cells Urine Bacteria Hyaline Casts Ethyl Alcohol COVID-19 (REE) COVID-19 [facility] Radiologist's Impressions: Impressions Chest X-Ray 06/09/22 15:28 IMPRESSION: * Cardiomegaly and pulmonary venous congestion without overt edema. * Diffuse bronchial wall thickening suggestive of bronchitis. Head CT 06/09/22 15:47 IMPRESSION: No acute intracranial pathology. Assessment and Plan (1) Hyperkalemia: Status: Acute (2) Acute metabolic encephalopathy: Status: Acute (3) LETHA (acute kidney injury): Status: Acute Plan 76-year-old female patient with past medical history significant for hypertension, hyperlipidemia, diabetes mellitus on insulin, coronary artery disease, paroxysaml atrial flutter on eliquis, chronic bilateral leg weakness on motorized chair, history of cervical spine surgery, history of anxiety depression, chronic pain syndrome, history of chronic kidney disease with history of bilateral hydronephrosis / hydroureter and distended bladder?admitted for acute metabolic encephalopathy, LETHA, UTI. # acute kidney injury -creatinine 3.65, improved to 3.25 after 4 L IVF -Ct abd/pelvis pending to evaluate for obstruction -Solis catheter placed -Strict I&O -Low sodium diet -Nephrology consult -Avodi nephrotoxins #Acute UTI -Positive UA, history recurrent UTI -Ceftriaxone 1g daily x 5 days (initiated 06/09) -Follow cultures # acute hyperkalemia- lead to LETHA -on arrival, K 7.2. Improved to 6.5 following regular insulin, Lokelma -no EKG changes, given calcium gluconate -given additional 5 units regular insulin -follow BMP #Acute metabolic acidosis -2/2 LETHA -As above -nephrology consult # acute metabolic encephalopathy-likely secondary to LETHA, UTI -treat the above # insulin-dependent type 2 diabetes-without hyperglycemia -POC glucose -diabetic diet -Humalog on sliding scale # hypertension-reasonably controlled -continue amlodipine -hold lisinopril-hydrochlorothiazide in setting of LETHA # CAD/HLD -no anginal chest pain -continue beta-lanette, statin, Zetia # paroxysmal atrial fibrillation-rate controlled -continue Eliquis for anticoagulation, metoprolol # mood disorder -continue home meds # chronic pain disorder -continue duloxetine, gabapentin DVT prophylaxis-on Eliquis Full code Patient requires inpatient stay at least 2 midnights for management of acute me tabolic encephalopathy, LETHA, hyperkalemia requiring IV antibiotic therapy for UTI, close cardiac monitoring, close monitoring of renal function, and expert consultation Time Spent With Patient Time: Total time managing care of this patient today ____ minutes. Quality Stroke Does the patient have a stroke diagnosis?: No VTE Prior VTE?: No VTE Risk Level:: Medical - moderate - high VTE Device Contraindication: Treatment Not Indicated VTE Drug Contraindication: N/A - Med Ordered
[2022-06-09] MEDS: Apixaban 5 MG TABLET PO (20:51)
[2022-06-09] MEDS: Gabapentin 600 MG TABLET PO (20:51)
[2022-06-09] MEDS: Insulin Regular, Human 100 UNIT/ML 3 ML VIAL IVPUSH (20:54)
[2022-06-09 21:00] LABS: Glucose, Whole Blood 111 mg/dL (60-115)
[2022-06-09 23:36] LABS: Glucose, Whole Blood 144 mg/dL (60-115)
[2022-06-09 23:36] LABS: Glucose, Whole Blood 227 mg/dL (60-115)
[2022-06-10] VITALS (9 sets, daily range): BP systolic 90–170; BP diastolic 61–95; PULSE 53–72; RESP 15–20; TEMP 36.2–36.6; O2SAT 93–98
[2022-06-10] MEDS: 0.9 % Sodium Chloride Flush 3 ML SYRINGE IVFLUSH ×3 (00:21→16:36)
[2022-06-10 00:47] LABS: Potassium 5.6 mmol/L (3.3-5.1)
[2022-06-10] MEDS: Albumin Human 25 % 100 ML 133.33 ML IV ×2 (01:07→01:57)
[2022-06-10 05:03] LABS: MANUAL DIFF FLAG NO
[2022-06-10 05:04] LABS: Basophils Percent Auto 0.4 % (0-2); Eosinophils Absolute Auto 0.1 X10*3/uL (0.0-0.4); Eosinophils Percent Auto 2.1 % (0-4); Hematocrit 29.4 % (37.0-47.0); Hemoglobin 8.7 g/dl (12.0-16.0); Imm Gran Abs Auto 0.02 X10*3/uL (0.00-0.03); Imm Gran Pct Auto 0.4 % (0.0-0.4); Lymphocytes Absolute Auto 1.2 X10*3/uL (1.2-4.9); Lymphocytes Percent Auto 21.3 % (20-40); Mean Corpuscular HGB Conc 29.6 g/dl (31.0-35.0); Mean Corpuscular Hemoglobin 30.2 pg (27.0-33.0); Mean Corpuscular Volume 102.1 fL (80.0-98.0); Mean Platelet Volume 10.6 fL (9.4-12.3); Monocytes Absolute Auto 0.6 X10*3/uL (0.1-1.2); Monocytes Percent Auto 11.4 % (2-11); Neutrophils Absolute Auto 3.6 x10*3/uL (2.0-8.3); Neutrophils Percent Auto 64.4 % (45-73); Platelet Count 255 X10*3/uL (160-400); Red Blood Count 2.88 X10*6/uL (4.20-5.50); Red Cell Distribution Width 15.9 % (11.0-16.0); White Blood Count 5.6 X10*3/uL (4.8-10.8)
[2022-06-10 05:28] LABS: Anion Gap 15 (12-20); Blood Urea Nitrogen 62 mg/dL (9-16); Carbon Dioxide 17 mmol/L (22-29); Chloride 115 mmol/L (96-108); Creatinine Clr Calc Pharmacy 18.6; Estimated Glomerular Filt Rate 14; Glucose Random 100 mg/dL (60-115); Sodium 141 mmol/L (135-145)
[2022-06-10 07:09] LABS: Glucose, Whole Blood 96 mg/dL (60-115)
--- NOTE | 2022-06-10 08:13 | PC.NURSE ---
1st attempt for report to floor [id number]
[2022-06-10] MEDS: Ezetimibe 10 MG TABLET PO (08:55)
[2022-06-10] MEDS: FLUoxetine HCl 20 MG CAPSULE PO (08:55)
[2022-06-10] MEDS: Lactulose 20 GM/30 ML SOLUTION 10 GM PO (08:55)
[2022-06-10] MEDS: Gabapentin 600 MG TABLET PO ×3 (08:55→19:57)
[2022-06-10] MEDS: Apixaban 5 MG TABLET PO ×2 (08:55→19:57)
[2022-06-10] MEDS: Metoprolol Tartrate 25 MG TABLET PO ×2 (08:55→19:57)
[2022-06-10] MEDS: Ferrous Sulfate 324 MG TABLET.DR PO (08:55)
[2022-06-10] MEDS: amLODIPine Besylate 5 MG TABLET PO (08:56)
--- NOTE | 2022-06-10 09:10 | P.CONNP_ITS ---
History of Present Illness Reason for Consult Consult date: 06/10/22 Reason for consult: LETHA Chief Complaint Chief complaint: LETHA,hyperkalemia,UTI History of Present Illness Narrative: 76-year-old female patient with a history significant for hypertension, hyperlipidemia, diabetes mellitus on insulin, coronary artery disease, paroxysaml atrial flutter on eliquis, chronic bilateral leg weakness on motorized chair, history of cervical spine surgery, history of anxiety depression, chronic pain syndrome, history of chronic kidney disease with history of bilateral hydronephrosis / hydroureter and distended bladde r?presented to the ED earlier today with family for evaluation of AMS ongoing since monday. The patient is a&ox3 but is confused and unable to give history. Her daughter states pt woke up monday confused and this has worsened since. She has reported dark urine. No fevers, chills and pt denies dysuria, hematuria. urgency, increased frequency.? On arrival, vital signs stable.? No leukocytosis.? Creatinine 3.65, baseline 1.25.? BUN 72.? Sodium 141, potassium 7.2, chloride 113, CO2 19.? glucose 133.? BNP 259.? Troponin 3.3.? Treated with 10 units regular insulin, D10, calcium gluconate, Lokelma, and 4 L IV NS with improvement in potassium to 6.5.? Minimal improvement in creatinine to 3.28, BUN 68.? Chloride 116, CO2 17.? Head CT is without any acute intracranial abnormalities.? CXR showing pulmonary vascular congestion without any overt edema or effusions.? No acute cardiopulmonary abnormality.? Urinalysis showing 3+ leukocytes, negative nitrites, 3+ blood, positive urinary sediment, negative bacteria.? Cultures pending.? Given dose of 1 g ceftriaxone for empiric coverage for UTI. in , she had acute kidney injury in a setting of sepsis and required hemodialysis. At the time of discharge in early April serum creatinine was 1.29 mg/dL. Review of Systems Review of Systems Unobtainable due to mental status Yes unobtainable due to endotracheal tube PMFSH Past Medical History Medical History (Updated 06/09/22 @ 20:52 by DILIP Neri) LETHA (acute kidney injury) Anxiety and depression Arthritis Asthma Atrial flutter CAD (coronary artery disease) Chronic kidney disease, stage 3 Chronic pain CKD (chronic kidney disease) stage 4, GFR 15-29 ml/min Diabetes mellitus High cholesterol History of myocardial infarction HTN (hypertension) Hyperglycemia Lateral malleolar fracture Limited mobility Multiple falls Myocardial infarction On anticoagulant therapy On beta lanette at home Paroxysmal atrial fibrillation Type 2 diabetes mellitus with unspecified complications Urgency incontinence Family History Family History Father No problems noted. Mother Diabetes High blood pressure Stomach cancer Surgical History Surgical History H/O neck surgery History of cataract extraction History of cystoscopy History of heart artery stent Hx of cholecystectomy Hx of colonoscopy Social History Social History Household Members: None Housing: Apartment Are you a primary hospice care transitions coordinator to a significant other at home: No Unable to assess alcohol history related to: Unable to respond and Unknown Alcohol intake: never Patient Tobacco Use Status: Former Tobacco user Quit Date: 2005 Tobacco use type: Cigarette Years Smoked: 30-40 years Second Hand Smoke Exposure: No Substance Use Type: Crack/Cocaine service: No Current occupational status: disabled Meds Allergies Allergy/AdvReac Type Severity Reaction Status Date / Time atorvastatin [ATORVASTATIN] Allergy Intermediate SWELLING Verified 05/23/22 14 :53 morphine [MORPHINE] Allergy Intermediate RASH Verified 05/23/22 14:53 zolpidem [From AMBIEN] AdvReac Intermediate SLEEP WALKS Verified 05/23/22 14:53 Active Medications: Current Medications Acetaminophen (Acetaminophen 325 Mg Tablet) 650 mg PO Q6H PRN PRN Reason: Pain, Mild (Pain Scale 1-3) Albuterol Sulfate (Albuterol Sulfate 90 Mcg 8 Gm Inhaler) 2 puff INHALE QID PRN PRN Reason: Respiratory Distress Amlodipine Besylate (Amlodipine Besylate 5 Mg Tablet) 5 mg PO DAILY [facility]; Protocol Last Admin: 06/10/22 08:56 Dose: 5 mg Apixaban (Apixaban 5 Mg Tablet) 5 mg PO BID [facility] Last Admin: 06/10/22 08:55 Dose: 5 mg Docusate Sodium (Docusate Sodium 100 Mg Capsule) 100 mg PO DAILY PRN PRN Reason: Constipation Ezetimibe (Ezetimibe 10 Mg Tablet) 10 mg PO DAILY [facility] Last Admin: 06/10/22 08:55 Dose: 10 mg Ferrous Sulfate (Ferrous Sulfate 324 Mg Tablet.Dr) 324 mg PO DAILY [facility] Last Admin: 06/10/22 08:55 Dose: 324 mg Fluoxetine HCl (Fluoxetine Hcl 20 Mg Capsule) 20 mg PO DAILY [facility] Last Admin: 06/10/22 08:55 Dose: 20 mg Gabapentin (Gabapentin 600 Mg Tablet) 600 mg PO TID [facility] Last Admin: 06/10/22 08:55 Dose: 600 mg Glucose (Glucose Gel 15 Gm Gel..Gram.) 15 gm PO Q15M PRN; Protocol PRN Reason: per Hypoglycemia Standing Ord. Dextrose (D10) 250 mls @ 750 mls/hr IV Q15M PRN; Protocol PRN Reason: per Hypoglycemia Standing Ord. Ceftriaxone Sodium 1 gm/ (Sodium Chloride) 50 mls @ 100 mls/hr IV Q24H [facility] Stop: 06/13/22 19:29 Insulin Human Lispro (Insulin Lispro 100 Unit/Ml 3 Ml Vial) 0 unit SUBCUT QIDACHS [facility]; Protocol Last Admin: 06/10/22 07:08 Dose: Not Given Metoprolol Tartrate (Metoprolol Tartrate 25 Mg Tablet) 25 mg PO BID [facility]; Protocol Last Admin: 06/10/22 08:55 Dose: 25 mg Non-Formulary Medication (Rosuvastatin) 20 mg PO BEDTIME [facility] Ondansetron HCl (Ondansetron Hcl 4 Mg/2 Ml Vial) 4 mg IVPUSH Q8H PRN PRN Reason: Nausea and Vomiting Pharmacy Consult (Consult Rx Perform Med Rec) 1 each MISCELLANE ONCE PRN PRN Reason: Consult order Quetiapine Fumarate (Quetiapine Fumarate 200 Mg Tablet) 200 mg PO BEDTIME [facility] Last Admin: 06/09/22 20:53 Dose: Not Given Quetiapine Fumarate (Quetiapine Fumarate 300 Mg Tablet) 300 mg PO BEDTIME PRN PRN Reason: Insomnia Sodium Chloride (0.9 % Sodium Chloride Flush 3 Ml Syringe) 3 ml IVFLUSH QSHIFT [facility] Last Admin: 06/10/22 07:09 Dose: 3 ml Home Medications Medication Instructions Recorded Confirmed Last Taken Type lancing device with lancets kit #1 ea 03/24/21 03/13/22 Unknown History ([facility]) metoprolol tartrate 25 mg tablet 25 mg PO BID 07/15/21 06/09/22 11/03/21 08:15 History quetiapine 300 mg tablet 300 mg PO BEDTIME PRN Insomnia 07/15/21 06/09/22 10/11/21 History albuterol sulfate 90 mcg/actuation 2 puff inhalation QID PRN 11/30/21 06/09/22 Unknown History aerosol inhaler Respiratory Distress duloxetine 30 mg capsule,delayed 30 mg PO DAILY 11/30/21 06/09/22 Unknown History release ferrous sulfate 325 mg (65 mg 325 mg PO DAILY 11/30/21 06/09/22 Unknown History iron) tablet fluoxetine 20 mg capsule 20 mg PO DAILY 11/30/21 06/09/22 Unknown History ezetimibe 10 mg tablet 10 mg PO DAILY 06/09/22 06/09/22 Unknown History gabapentin 600 mg tablet 600 mg PO TID 06/09/22 06/09/22 Unknown History insulin lispro 100 unit/mL 6 unit subcut TID 06/09/22 06/09/22 Unknown History subcutaneous pen (Humalog KwikPen (U-100) Insulin) lisinopril 20 1 tab PO DAILY 06/09/22 06/09/22 Unknown History mg-hydrochlorothiazide 25 mg tablet quetiapine 200 mg tablet 200 mg PO BEDTIME 06/09/22 06/09/22 Unknown History rosuvastatin 20 mg tablet 20 mg PO BEDTIME 06/09/22 06/09/22 Unknown History Physical Exam Vital Signs: Last Vital Signs Temp 97.4 F 06/10/22 06:13 Pulse 65 06/10/22 06:13 Resp 15 06/10/22 06:13 BP 140/84 H 06/10/22 06:13 Pulse Ox 97 06/10/22 02:48 O2 Del Method Room Air 06/10/22 06:13 BMI result Body Mass Index 48.2 Constitutional - Awake and Alert, No apparent distress Eyes - PERRLA, EOMI Cardiovascular - S1S2, RRR, 2+ edema LLE, 1+ edema RLE Respiratory - Normal lung expansion, Normal respiratory effort, No respiratory distress, CTA bilaterally Gastrointestinal - NT / ND; +BS; No rebound or guarding - No CVA tenderness Extremities - no calf tenderness bilaterally, no swelling Skin - Warm/Dry Neurological - Alert & oriented x3 btu not answering questions appropriately, confused, CN II-XII in tact, 5/5 strength BUE and BLE Results Lab Results 06/10/22 04:59 06/10/22 04:59 Lab results: Chemistry 06/09/22 06/09/22 06/10/22 16:03 18:32 00:26 Sodium 141 142 Potassium 7.2 H* D 6.5 H* 5.6 H Carbon Dioxide 19 L 17 L BUN 72 H 68 H Creatinine 3.65 H 3.28 H Calcium 7.5 L 7.0 L D 06/10/22 04:59 Sodium 141 Potassium 6.0 H* Carbon Dioxide 17 L BUN 62 H Creatinine 3.26 H Calcium 7.0 L Hematology 06/09/22 06/10/22 16:03 04:59 WBC 7.1 5.6 Hgb 9.9 L 8.7 L Plt Count 304 255 Urinalysis 06/09/22 18:32 Urine Color Yellow Urine Appearance Cloudy Urine pH 5.0 Ur Specific [place] 1.015 Urine Protein 30 (1+) H Urine Glucose (UA) Negative Urine Ketones Negative Urine Blood Large (3+) H Urine Nitrite Negative Ur Leukocyte Esterase Large (3+) H Urine RBC >20 H Urine WBC >50 H Ur Squamous Epith Cells 0-2 Hyaline Casts 0-2 Assessment and Plan (1) LETHA (acute kidney injury): Status: Acute Plan Acute kidney injury superimposed on chronic kidney disease with severe hy perkalemia primarily due to obstructive uropathy/urinary retention. She could have superimposed tubular injury. No reason to believe she has any active glomerulonephritis at this time. Obstructive uropathy. Anemia without thrombocytopenia. Hyperchloremic metabolic acidosis. Recommendations Keep Solis catheter. Neurology consultation. Treat hyperkalemia medically. Agree with Lokelma to maintain serum potassium less than 5.2 millimoles. IV hydration to keep intake more than the output. Add sodium bicarbonate to correct acidosis. Continued our nephrotoxic agents. Follow renal function closely. There is no absolute indication for dialysis yet. We will follow her along with the team. Thank you Time Spent With Patient Time: Total time managing care of this patient today ____ minutes. Procedures Date of Service Date of Service: 06/10/22
--- NOTE | 2022-06-10 09:16 | MHC.CM.PN ---
Patient is here with AMS; CM spoke with Daughter/HCP/Viktoriya @ [phone] and addressed IMM with her (original will be mailed certified letter to Viktoriya and a copy will be placed on the chart). Patient lives alone in an apartment and she uses a motorized w/c to assist with mobility. Patient has a [employer] and vna through [facility]; home/resume said services is the goal and CM has initiated and will follow for dc planning. Patient has received Moderna/Covid vax x3 and her PCP is Dr. Janet Phelan.
--- NOTE | 2022-06-10 10:45 | PC.NURSE ---
Assumed care for this pt at this time
[2022-06-10 11:46] LABS: Glucose, Whole Blood 116 mg/dL (60-115)
--- NOTE | 2022-06-10 14:10 | P.PNIM_ITS ---
Subjective Subjective Date of Service: 06/10/22 Interval History: Patient awake alert to time place and person offers no acute complaints Solis catheter was recently removed after voiding trial by Urology, denies fever chills, no events overnight, denies lightheadedness, no dizziness, no headache, no nausea, no vomiting, tolerating diet. Review of Systems Review of Systems: Yes all other systems are reviewed and are negative Physical Exam Vital Signs: Vital Signs: Last Vital Signs Temp 97.1 F 06/10/22 12:00 Pulse 70 06/10/22 12:00 Resp 20 06/10/22 12:00 BP 144/68 H 06/10/22 12:00 Pulse Ox 95 06/10/22 12:00 O2 Del Method Room Air 06/10/22 12:00 BMI result Body Mass Index 48.2 Const: Other: General awake alert x3,no acute distress.? Neck? no JVD. CVS? regular rate rhythm, Respiratory lungs clear to auscultation, no respiratory distress, no wheeze, no rhonchi. Gastrointestinal abdomen soft, obese, nontender, bowel sounds audible Extremities no? edema Back no CVA tenderness Neuro nonfocal, speech clear Psych appropriate affect Solis catheter with cloudy urine Objective Data Active Medications Acetaminophen (Acetaminophen 325 Mg Tablet) 650 mg PO Q6H PRN PRN Reason: Pain, Mild (Pain Scale 1-3) Albuterol Sulfate (Albuterol Sulfate 90 Mcg 8 Gm Inhaler) 2 puff INHALE QID PRN PRN Reason: Respiratory Distress Amlodipine Besylate (Amlodipine Besylate 5 Mg Tablet) 5 mg PO DAILY [facility]; Protocol Last Admin: 06/10/22 08:56 Dose: 5 mg Documented By: BETHANY Apixaban (Apixaban 5 Mg Tablet) 5 mg PO BID [facility] Last Admin: 06/10/22 08:55 Dose: 5 mg Documented By: BETHANY Docusate Sodium (Docusate Sodium 100 Mg Capsule) 100 mg PO DAILY PRN PRN Reason: Constipation Ezetimibe (Ezetimibe 10 Mg Tablet) 10 mg PO DAILY [facility] Last Admin: 06/10/22 08:55 Dose: 10 mg Documented By: BETHANY Ferrous Sulfate (Ferrous Sulfate 324 Mg Tablet.) 324 mg PO DAILY [facility] Last Admin: 06/10/22 08:55 Dose: 324 mg Documented By: BETHANY Fluoxetine HCl (Fluoxetine Hcl 20 Mg Capsule) 20 mg PO DAILY [facility] Last Admin: 06/10/22 08:55 Dose: 20 mg Documented By: BEHTANY Gabapentin (Gabapentin 600 Mg Tablet) 600 mg PO TID [facility] Last Admin: 06/10/22 08:55 Dose: 600 mg Documented By: BETHANY Glucose (Glucose Gel 15 Gm Gel..Gram.) 15 gm PO Q15M PRN; Protocol PRN Reason: per Hypoglycemia Standing Ord. Dextrose (D10) 250 mls @ 750 mls/hr IV Q15M PRN; Protocol PRN Reason: per Hypoglycemia Standing Ord. Ceftriaxone Sodium 1 gm/ (Sodium Chloride) 50 mls @ 100 mls/hr IV Q24H [facility] Stop: 06/13/22 19:29 Insulin Human Lispro (Insulin Lispro 100 Unit/Ml 3 Ml Vial) 0 unit SUBCUT QIDACHS [facility]; Protocol Last Admin: 06/10/22 11:43 Dose: Not Given Documented By: JEEVAN Non-Admin Reason: No Insulin Coverage Metoprolol Tartrate (Metoprolol Tartrate 25 Mg Tablet) 25 mg PO BID [facility]; Protocol Last Admin: 06/10/22 08:55 Dose: 25 mg Documented By: BETHANY Non-Formulary Medication (Rosuvastatin) 20 mg PO BEDTIME [facility] Ondansetron HCl (Ondansetron Hcl 4 Mg/2 Ml Vial) 4 mg IVPUSH Q8H PRN PRN Reason: Nausea and Vomiting Pharmacy Consult (Consult Rx Perform Med Rec) 1 each MISCELLANE ONCE PRN PRN Reason: Consult order Quetiapine Fumarate (Quetiapine Fumarate 200 Mg Tablet) 200 mg PO BEDTIME [facility] Last Admin: 06/09/22 20:53 Dose: Not Given Documented By: BENITO Non-Admin Reason: Decreased Heart Rate Quetiapine Fumarate (Quetiapine Fumarate 300 Mg Tablet) 300 mg PO BEDTIME PRN PRN Reason: Insomnia Sodium Chloride (0.9 % Sodium Chloride Flush 3 Ml Syringe) 3 ml IVFLUSH QSHIFT [facility] Last Admin: 06/10/22 07:09 Dose: 3 ml Documented By: BETHANY Labs 06/10/22 04:59 06/10/22 04:59 Labs: Laboratory Results - last 24 hr 06/09/22 06/09/22 06/09/22 16:01 16:03 16:03 MCV 100.3 H MCH 30.2 MCHC 30.1 L RDW 15.7 Plt Count 304 MPV 10.9 Immature Gran % (Auto) 0.4 Neut % (Auto) 74.2 H Lymph % (Auto) 16.3 L [place] % (Auto) 7.5 Eos % (Auto) 1.3 Baso % (Auto) 0.3 Lymph # (Auto) 1.2 [place] # (Auto) 0.5 Eos # (Auto) 0.1 Baso # (Auto) 0.0 Abs Immat Gran (auto) 0.03 Absolute Neuts (auto) 5.3 Absolute Nucleated RBC 0.000 Nucleated RBC % (auto) 0.0 Anion Gap 16 Estim Creat Clear Calc 16.6 Estimated GFR 12 POC Glucose 122 H Random Glucose 133 H Lactic Acid Calcium 7.5 L Total Bilirubin 0.4 Direct Bilirubin 0.1 AST 9 ALT 8 Alkaline Phosphatase 117 Troponin I High Sens B-Natriuretic Peptide Total Protein 7.4 Albumin 4.0 Lipase 11 Urine Color Urine Appearance Urine pH Ur Specific [place] Urine Protein Urine Glucose (UA) Urine Ketones Urine Blood Urine Nitrite Ur Leukocyte Esterase Urine RBC Urine WBC Ur Squamous Epith Cells Urine Bacteria Hyaline Casts Ethyl Alcohol COVID-19 (REE) COVID-19 Clin Com 06/09/22 06/09/22 06/09/22 16:03 16:03 16:03 MCV MCH MCHC RDW Plt Count MPV Immature Gran % (Auto) Neut % (Auto) Lymph % (Auto) Wil[place] % (Auto) Eos % (Auto) Baso % (Auto) Lymph # (Auto) Wilkinson # (Auto) Eos # (Auto) Baso # (Auto) Abs Immat Gran (auto) Absolute Neuts (auto) Absolute Nucleated RBC Nucleated RBC % (auto) Anion Gap Estim Creat Clear Calc Estimated GFR POC Glucose Random Glucose Lactic Acid Calcium Total Bilirubin Direct Bilirubin AST ALT Alkaline Phosphatase Troponin I High Sens 3.3 B-Natriuretic Peptide Total Protein Albumin Lipase Urine Color Urine Appearance Urine pH Ur Specific [place] Urine Protein Urine Glucose (UA) Urine Ketones Urine Blood Urine Nitrite Ur Leukocyte Esterase Urine RBC Urine WBC Ur Squamous Epith Cells Urine Bacteria Hyaline Casts Ethyl Alcohol < 10 COVID-19 (REE) Negative COVID-19 [employer] Com See Note 06/09/22 06/09/22 06/09/22 16:03 16:22 18:32 MCV MCH MCHC RDW Plt Count MPV Immature Gran % (Auto) Neut % (Auto) Lymph % (Auto) [place] % (Auto) Eos % (Auto) Baso % (Auto) Lymph # (Auto) [place] # (Auto) Eos # (Auto) Baso # (Auto) Abs Immat Gran (auto) Absolute Neuts (auto) Absolute Nucleated RBC Nucleated RBC % (auto) Anion Gap Estim Creat Clear Calc Estimated GFR POC Glucose Random Glucose Lactic Acid 0.6 Calcium Total Bilirubin Direct Bilirubin AST ALT Alkaline Phosphatase Troponin I High Sens B-Natriuretic Peptide 259 H Total Protein Albumin Lipase Urine Color Yellow Urine Appearance Cloudy Urine pH 5.0 Ur Specific [place] 1.015 Urine Protein 30 (1+) H Urine Glucose (UA) Negative Urine Ketones Negative Urine Blood Large (3+) H Urine Nitrite Negative Ur Leukocyte Esterase Large (3+) H Urine RBC >20 H Urine WBC >50 H Ur Squamous Epith Cells 0-2 Urine Bacteria None Seen Hyaline Casts 0-2 Ethyl Alcohol COVID-19 (REE) [employer] 06/09/22 06/09/22 06/09/22 18:32 18:34 19:20 MCV MCH MCHC RDW Plt Count MPV Immature Gran % (Auto) Neut % (Auto) Lymph % (Auto) [place] % (Auto) Eos % (Auto) Baso % (Auto) Lymph # (Auto) [place] # (Auto) Eos # (Auto) Baso # (Auto) Abs Immat Gran (auto) Absolute Neuts (auto) Absolute Nucleated RBC Nucleated RBC % (auto) Anion Gap 16 Estim Creat Clear Calc 18.4 Estimated GFR 14 POC Glucose 172 H 161 H Random Glucose 164 H Lactic Acid Calcium 7.0 L D Total Bilirubin Direct Bilirubin AST ALT Alkaline Phosphatase Troponin I High Sens B-Natriuretic Peptide Total Protein Albumin Lipase Urine Color Urine Appearance Urine pH Ur Specific [place] Urine Protein Urine Glucose (UA) Urine Ketones Urine Blood Urine Nitrite Ur Leukocyte Esterase Urine RBC Urine WBC Ur Squamous Epith Cells Urine Bacteria Hyaline Casts Ethyl Alcohol COVID-19 (REE) COVID-19 [employer] Com 06/09/22 06/09/22 06/09/22 20:47 22:11 23:33 MCV MCH MCHC RDW Plt Count MPV Immature Gran % (Auto) Neut % (Auto) Lymph % (Auto) [place] % (Auto) Eos % (Auto) Baso % (Auto) Lymph # (Auto) [place] # (Auto) Eos # (Auto) Baso # (Auto) Abs Immat Gran (auto) Absolute Neuts (auto) Absolute Nucleated RBC Nucleated RBC % (auto) Anion Gap Estim Creat Clear Calc Estimated GFR POC Glucose 111 144 H 227 H Random Glucose Lactic Acid Calcium Total Bilirubin Direct Bilirubin AST ALT Alkaline Phosphatase Troponin I High Sens B-Natriuretic Peptide Total Protein Albumin Lipase Urine Color Urine Appearance Urine pH Ur Specific [place] Urine Protein Urine Glucose (UA) Urine Ketones Urine Blood Urine Nitrite Ur Leukocyte Esterase Urine RBC Urine WBC Ur Squamous Epith Cells Urine Bacteria Hyaline Casts Ethyl Alcohol COVID-19 (REE) [employer] 06/10/22 06/10/22 06/10/22 04:59 04:59 07:05 MCV 102.1 H MCH 30.2 MCHC 29.6 L RDW 15.9 Plt Count 255 MPV 10.6 Immature Gran % (Auto) 0.4 Neut % (Auto) 64.4 Lymph % (Auto) 21.3 [place] % (Auto) 11.4 H Eos % (Auto) 2.1 Baso % (Auto) 0.4 Lymph # (Auto) 1.2 [place] # (Auto) 0.6 Eos # (Auto) 0.1 Baso # (Auto) 0.0 Abs Immat Gran (auto) 0.02 Absolute Neuts (auto) 3.6 Absolute Nucleated RBC 0.000 Nucleated RBC % (auto) 0.0 Anion Gap 15 Estim Creat Clear Calc 18.6 Estimated GFR 14 POC Glucose 96 Random Glucose 100 Lactic Acid Calcium 7.0 L Total Bilirubin Direct Bilirubin AST ALT Alkaline Phosphatase Troponin I High Sens B-Natriuretic Peptide Total Protein Albumin Lipase Urine Color Urine Appearance Urine pH Ur Specific [place] Urine Protein Urine Glucose (UA) Urine Ketones Urine Blood Urine Nitrite Ur Leukocyte Esterase Urine RBC Urine WBC Ur Squamous Epith Cells Urine Bacteria Hyaline Casts Ethyl Alcohol COVID-19 (REE) [employer] 06/10/22 11:41 MCV MCH MCHC RDW Plt Count MPV Immature Gran % (Auto) Neut % (Auto) Lymph % (Auto) [place] % (Auto) Eos % (Auto) Baso % (Auto) Lymph # (Auto) [place] # (Auto) Eos # (Auto) Baso # (Auto) Abs Immat Gran (auto) Absolute Neuts (auto) Absolute Nucleated RBC Nucleated RBC % (auto) Anion Gap Estim Creat Clear Calc Estimated GFR POC Glucose 116 H Random Glucose Lactic Acid Calcium Total Bilirubin Direct Bilirubin AST ALT Alkaline Phosphatase Troponin I High Sens B-Natriuretic Peptide Total Protein Albumin Lipase Urine Color Urine Appearance Urine pH Ur Specific [place] Urine Protein Urine Glucose (UA) Urine Ketones Urine Blood Urine Nitrite Ur Leukocyte Esterase Urine RBC Urine WBC Ur Squamous Epith Cells Urine Bacteria Hyaline Casts Ethyl Alcohol COVID-19 (REE) COVID-19 Clin Com Microbiology Microbiology Results: Microbiology 06/09/22 19:05 Urine Culture - Preliminary Urine clean catch - Urine medina top No growth to date. Assessment and Plan (1) Acute metabolic encephalopathy: Status: Acute (2) Hyperkalemia: Status: Acute Plan 76-year-old female patient with past medical history significant for hypertension, hyperlipidemia, diabetes mellitus on insulin, coronary artery dise ase, paroxysaml atrial flutter on eliquis, chronic bilateral leg weakness on motorized chair, history of cervical spine surgery, history of anxiety depression, chronic pain syndrome, history of chronic kidney disease with history of bilateral hydronephrosis / hydroureter and distended bladder?admitted for acute metabolic encephalopathy, LETHA, UTI. # acute on chronic kidney disease stage 3 -creatinine 3.65, on admission improved to 3.26 s/p 4 L IVF -Ct abd/pelvis showed mild right and [id number] left hydro ureteral nephrosis new when compared to recent CT abdomen no obstructing stones or bladder abnormality noted -likely obstructive, Solis catheter placed, continue IV fluids Obtained Urology in renal consultation follow BMP and clinical course #Acute UTI -cloudy urine no bacteria,history recurrent UTI -Ceftriaxone 1g daily x 5 days (initiated 06/09) -Follow urine cultures # acute hyperkalemia- likely due to LETHA -on arrival, K 7.2.? Improved to 6.0 following regular insulin, Lokelma -no EKG changes, given calcium gluconate Will place on low-potassium diet, Lokelma 10 mg b.i.d. follow BMP #Acute metabolic acidosis -2/2 LETHA -nephrology consult # acute metabolic encephalopathy-likely secondary to LETHA, UTI -resolved # insulin-dependent type 2 diabetes-without hyperglycemia -stable blood sugars continue diabetic diet, Humalog sliding scale and monitor POC glucose # hypertension-reasonably controlled -continue amlodipine -hold lisinopril-hydrochlorothiazide in setting of LETHA # CAD/HLD -no anginal chest pain,continue beta-lanette, statin, Zetia # paroxysmal atrial fibrillation-rate controlled -continue Eliquis and metoprolol # mood disorder -continue home meds # chronic pain disorder -continue duloxetine, gabapentin DVT prophylaxis-on Eliquis Full code Patient required continued inpatient hospitalization for management of acute metabolic encephalopathy, LETHA, hyperkalemia requiring IV antibiotic therapy for UTI, close cardiac monitoring, close monitoring of renal function, and expert consultation Time Spent With Patient Time: Total time managing care of this patient today ____ minutes. Quality Stroke Does the patient have a stroke diagnosis?: No VTE Prior VTE?: No VTE Risk Level:: Medical - moderate - high VTE Device Contraindication: Treatment Not Indicated VTE Drug Contraindication: N/A - Med Ordered
[2022-06-10 15:49] LABS: Glucose, Whole Blood 125 mg/dL (60-115)
[2022-06-10] MEDS: Sodium Zirconium Cyclosilicate 10 GM POWD.PACK PO ×2 (16:35→19:57)
[2022-06-10] MEDS: Acetaminophen 325 MG TABLET 650 MG PO (18:27)
[2022-06-10] MEDS: cefTRIAXone sodium 1 GM in 0.9 % Sodium Chloride 50 ML IV (18:27)
[2022-06-10 19:51] LABS: Glucose, Whole Blood 120 mg/dL (60-115)
[2022-06-10] MEDS: QUEtiapine Fumarate 200 MG TABLET PO (19:57)
[2022-06-11] VITALS (7 sets, daily range): BP systolic 115–190; BP diastolic 67–97; PULSE 60–81; RESP 17–20; TEMP 36.1–37; O2SAT 94–98
--- NOTE | 2022-06-11 | ECG_ITS ---
Test Reason : chest pain Blood Pressure : / mmHG Vent. Rate : 067 BPM Atrial Rate : 067 BPM P-R Int : 176 ms QRS Dur : 078 ms QT Int : 410 ms P-R-T Axes : 085 044 027 degrees QTc Int : 433 ms Normal sinus rhythm Normal ECG When compared with ECG of 09-JUN-2022 15:19, No significant change was found Referred By: Kimberly Luu Electronically Signed By:Gilbert Chavarria
[2022-06-11] MEDS: 0.9 % Sodium Chloride Flush 3 ML SYRINGE IVFLUSH ×3 (00:51→21:02)
[2022-06-11 06:55] LABS: Anion Gap 15 (12-20); Blood Urea Nitrogen 65 mg/dL (9-16); Calcium 7.4 mg/dL (8.4-10.2); Carbon Dioxide 17 mmol/L (22-29); Chloride 117 mmol/L (96-108); Creatinine Clr Calc Pharmacy 20.7; Estimated Glomerular Filt Rate 16; Glucose Random 90 mg/dL (60-115); Sodium 143 mmol/L (135-145)
[2022-06-11 08:08] LABS: Glucose, Whole Blood 96 mg/dL (60-115)
--- NOTE | 2022-06-11 09:20 | PC.NURSE ---
pt reports chest pain that feels like pinching and radiates to the arm but also goes down to below her chest litlle by little but it comes and goes. pt reports that it is not new pain. On assessment, pt is breathing normally, denied sob, HR 67- sinus rhythm on tele. MD Dr Luu notified. EKG obtain - normal sinus rhythm.
[2022-06-11] MEDS: amLODIPine Besylate 5 MG TABLET PO (09:50)
[2022-06-11] MEDS: Gabapentin 600 MG TABLET PO ×3 (09:50→21:02)
[2022-06-11] MEDS: FLUoxetine HCl 20 MG CAPSULE PO (09:50)
[2022-06-11] MEDS: Sodium Zirconium Cyclosilicate 10 GM POWD.PACK PO ×2 (09:50→21:02)
[2022-06-11] MEDS: Apixaban 5 MG TABLET PO ×2 (09:50→21:02)
[2022-06-11] MEDS: Ezetimibe 10 MG TABLET PO (09:50)
[2022-06-11] MEDS: Metoprolol Tartrate 25 MG TABLET PO ×2 (09:51→21:02)
[2022-06-11] MEDS: Ferrous Sulfate 324 MG TABLET.DR PO (09:51)
[2022-06-11 11:55] LABS: Glucose, Whole Blood 112 mg/dL (60-115)
--- NOTE | 2022-06-11 13:44 | PM.PNNEP ---
Subjective Subjective Date of Service: 06/11/22 Interval history: Events noted Non oliguric with belcher Physical Exam Vital Signs: Vital Signs: Last Vital Signs Temp 97.8 F 06/11/22 12:00 Pulse 66 06/11/22 12:00 Resp 18 06/11/22 12:00 BP 157/80 H 06/11/22 12:00 Pulse Ox 98 06/11/22 12:00 O2 Del Method Room Air 06/11/22 12:00 BMI result Body Mass Index 48.2 Const: Other: General awake alert x3,no acute distress.? Neck? no JVD. CVS? regular rate rhythm, Respiratory lungs clear to auscultation, no respiratory distress, no wheeze, no rhonchi. Gastrointestinal abdomen soft, obese, nontender, bowel sounds audible Extremities no? edema Back no CVA tenderness Neuro nonfocal, speech clear Psych appropriate affect Belcher catheter with cloudy urine Objective Data Labs 06/10/22 04:59 06/11/22 05:54 Labs: Laboratory Results - last 24 hr 06/10/22 06/10/22 06/11/22 15:43 19:43 05:54 Sodium 143 Potassium 6.0 H* Chloride 117 H Carbon Dioxide 17 L Anion Gap 15 BUN 65 H Creatinine 2.92 H Estim Creat Clear Calc 20.7 Estimated GFR 16 POC Glucose 125 H 120 H Random Glucose 90 Calcium 7.4 L 06/11/22 06/11/22 08:03 11:45 Sodium Potassium Chloride Carbon Dioxide Anion Gap BUN Creatinine Estim Creat Clear Calc Estimated GFR POC Glucose 96 112 Random Glucose Calcium Microbiology Microbiology Results: Microbiology 06/09/22 19:05 Urine clean catch - Urine [facility] top Urine Culture - Preliminary Culture in progress. 06/09/22 16:18 Blood - Venous Blood Culture - Preliminary No growth after 24 hours. 06/09/22 16:06 Blood - Venous Blood Culture - Preliminary No growth after 24 hours. Procedures Date of Service Date of Service: 06/11/22 Assessment & Plan Assessment and plan (1) LETHA (acute kidney injury): Status: Acute Plan Acute kidney injury superimposed on chronic kidney disease with severe hyperkalemia primarily due to obstructive uropathy/urinary retention. She could have superimposed tubular injury. No reason to believe she has any active glomerulonephritis at this time. Obstructive uropathy. Anemia without thrombocytopenia. Hyperchloremic metabolic acidosis. Recommendations Keep Belcher catheter. Urology consultation. Treat hyperkalemia medically. Agree with Lokelma to maintain serum potassium less than 5.2 millimoles. IV hydration to keep intake more than the output. sodium bicarbonate to correct acidosis. Continued to avoid nephrotoxic agents. Follow renal function closely. There is no absolute indication for dialysis yet. We will follow her along with the team. Time Spent With Patient Time: Total time managing care of this patient today ____ minutes. Progress Note: Quality Stroke Does the patient have a stroke diagnosis?: No
--- NOTE | 2022-06-11 13:54 | HO.PM.IMPN ---
Subjective Subjective Date of Service: 06/11/22 Interval History: Complaining of intermittent left anterior chest pain that present as sharp needle jabs, lasting for seconds, it happened 7 times per hour, symptoms ongoing x3 months has been taking Tylenol at home no associated diaphoresis no shortness, EKG showed no ischemia, tolerating diet, no nausea, no vomiting, no abdominal pain, no fevers, no other acute issues overnight. Review of Systems Review of Systems: Yes all other systems are reviewed and are negative Physical Exam Vital Signs: Vital Signs: Last Vital Signs Temp 97.8 F 06/11/22 12:00 Pulse 66 06/11/22 12:00 Resp 18 06/11/22 12:00 BP 157/80 H 06/11/22 12:00 Pulse Ox 98 06/11/22 12:00 O2 Del Method Room Air 06/11/22 12:00 BMI result Body Mass Index 48.2 Const: Other: General awake alert x3,no acute distress.? Neck? no JVD. CVS? regular rate rhythm, Respiratory lungs clear to auscultation, no respiratory distress, no wheeze, no rhonchi. Gastrointestinal abdomen soft, obese, nontender, bowel sounds audible No chest wall tenderness Extremities no? edema Back no CVA tenderness Neuro nonfocal, speech clear Psych appropriate affect Objective Data Active Medications Acetaminophen (Acetaminophen 325 Mg Tablet) 650 mg PO Q6H PRN PRN Reason: Pain, Mild (Pain Scale 1-3) Last Admin: 06/10/22 18:27 Dose: 650 mg Documented By: JEEVAN Albuterol Sulfate (Albuterol Sulfate 90 Mcg 8 Gm Inhaler) 2 puff INHALE QID PRN PRN Reason: Respiratory Distress Amlodipine Besylate (Amlodipine Besylate 5 Mg Tablet) 5 mg PO DAILY PENDING SALE TO [facility]; Protocol Last Admin: 06/11/22 09:50 Dose: 5 mg Documented By: KEDAR Apixaban (Apixaban 5 Mg Tablet) 5 mg PO BID PENDING SALE TO [facility] Last Admin: 06/11/22 09:50 Dose: 5 mg Documented By: KEDAR Docusate Sodium (Docusate Sodium 100 Mg Capsule) 100 mg PO DAILY PRN PRN Reason: Constipation Ezetimibe (Ezetimibe 10 Mg Tablet) 10 mg PO DAILY PENDING SALE TO [facility] Last Admin: 06/11/22 09:50 Dose: 10 mg Documented By: KEDAR Ferrous Sulfate (Ferrous Sulfate 324 Mg Tablet.Dr) 324 mg PO DAILY PENDING SALE TO [facility] Last Admin: 06/11/22 09:51 Dose: 324 mg Documented By: KEDAR Fluoxetine HCl (Fluoxetine Hcl 20 Mg Capsule) 20 mg PO DAILY PENDING SALE TO [facility] Last Admin: 06/11/22 09:50 Dose: 20 mg Documented By: KEDAR Gabapentin (Gabapentin 600 Mg Tablet) 600 mg PO TID PENDING SALE TO [facility] Last Admin: 06/11/22 09:50 Dose: 600 mg Documented By: KEDAR Glucose (Glucose Gel 15 Gm Gel..Gram.) 15 gm PO Q15M PRN; Protocol PRN Reason: per Hypoglycemia Standing Ord. Dextrose (D10) 250 mls @ 750 mls/hr IV Q15M PRN; Protocol PRN Reason: per Hypoglycemia Standing Ord. Ceftriaxone Sodium 1 gm/ (Sodium Chloride) 50 mls @ 100 mls/hr IV Q24H PENDING SALE TO [facility] Stop: 06/13/22 19:29 Last Infusion: 06/10/22 18:59 Dose: 0 mls/hr Documented By: JEEVAN Insulin Human Lispro (Insulin Lispro 100 Unit/Ml 3 Ml Vial) 0 unit SUBCUT QIDACHS PENDING SALE TO [facility]; Protocol Last Admin: 06/11/22 12:16 Dose: Not Given Documented By: KEDAR Non-Admin Reason: No Insulin Coverage Lidocaine (Lidocaine 4 % Patch Adh..Patch) 0.5 patch TRANSDERMA ONCE ONE; Protocol Stop: 06/11/22 13:53 Metoprolol Tartrate (Metoprolol Tartrate 25 Mg Tablet) 25 mg PO BID PENDING SALE TO [facility]; Protocol Last Admin: 06/11/22 09:51 Dose: 25 mg Documented By: KEDAR Non-Formulary Medication (Rosuvastatin) 20 mg PO BEDTIME PENDING SALE TO [facility] Ondansetron HCl (Ondansetron Hcl 4 Mg/2 Ml Vial) 4 mg IVPUSH Q8H PRN PRN Reason: Nausea and Vomiting Pharmacy Consult (Consult Rx Perform Med Rec) 1 each MISCELLANE ONCE PRN PRN Reason: Consult order Quetiapine Fumarate (Quetiapine Fumarate 200 Mg Tablet) 200 mg PO BEDTIME PENDING SALE TO [facility] Last Admin: 06/10/22 19:57 Dose: 200 mg Documented By: JEEVAN Quetiapine Fumarate (Quetiapine Fumarate 300 Mg Tablet) 300 mg PO BEDTIME PRN PRN Reason: Insomnia Sodium Chloride (0.9 % Sodium Chloride Flush 3 Ml Syringe) 3 ml IVFLUSH QSHIFT PENDING SALE TO [facility] Last Admin: 06/11/22 09:51 Dose: 3 ml Documented By: KEDAR Sodium Zirconium Cyclosilicate (Sodium Zirconium Cyclosilicate 10 Gm Powd.Pack) 10 gm PO BID PENDING SALE TO [facility] Last Admin: 06/11/22 09:50 Dose: 10 gm Documented By: KEDAR Labs 06/10/22 04:59 06/11/22 05:54 Labs: Laboratory Results - last 24 hr 06/10/22 06/10/22 06/11/22 15:43 19:43 05:54 Anion Gap 15 Estim Creat Clear Calc 20.7 Estimated GFR 16 POC Glucose 125 H 120 H Random Glucose 90 Calcium 7.4 L 06/11/22 06/11/22 08:03 11:45 Anion Gap Estim Creat Clear Calc Estimated GFR POC Glucose 96 112 Random Glucose Calcium Microbiology Microbiology Results: Microbiology 06/09/22 19:05 Urine Culture - Preliminary Urine clean catch - Urine [facility] top Culture in progress. 06/09/22 16:18 Blood Culture - Preliminary Blood - Venous No growth after 24 hours. 06/09/22 16:06 Blood Culture - Preliminary Blood - Venous No growth after 24 hours. Assessment and Plan (1) Acute metabolic encephalopathy: Status: Acute (2) Hyperkalemia: Status: Acute Plan 76-year-old female patient with past medical history significant for hypertension, hyperlipidemia, diabetes mellitus on insulin, coronary artery disease, paroxysaml atrial flutter on eliquis, chronic bilateral leg weakness on motorized chair, history of cervical spine surgery, history of anxiety depression, chronic pain syndrome, history of chronic kidney disease with history of bilateral hydronephrosis / hydroureter and distended bladder?admitted for acute metabolic encephalopathy, LETHA, UTI. # acute on chronic kidney disease stage 3 -creatinine 3.65, on admission, gradually trending down, 2.92 today, s/p 4 L IVF -Ct abd/pelvis showed mild right and [id number] left hydro ureteral nephrosis new when compared to recent CT abdomen, no obstructing stones or bladder abnormality noted, good urine output -likely obstructive, Solis catheter placed, IV fluids follow BMP and clinical course Being followed by Nephrology no indication for hemodialysis, Urology consult obtained #Acute UTI -cloudy urine no bacteria,history recurrent UTI -urine culture showed no growth, will DC IV ceftriaxone # acute hyperkalemia- likely due to LETHA -on arrival, K 7.2.? Improved to 6.0 , continue Lokelma 10 mg b.i.d. and follow BMP - #Acute metabolic acidosis -2/2 LETHA, treatment soda bicarb follow BMP # acute metabolic encephalopathy-likely secondary to LETHA, UTI -resolved # insulin-dependent type 2 diabetes-without hyperglycemia -stable blood sugars continue diabetic diet, Humalog sliding scale and monitor POC glucose # hypertension-reasonably controlled -continue amlodipine and beta-blockers -hold lisinopril-hydrochlorothiazide in setting of LETHA # CAD/HLD -no anginal chest pain,continue beta-lanette, statin, Zetia # paroxysmal atrial fibrillation-rate controlled -continue Eliquis and metoprolol # mood disorder -continue home meds # chronic pain disorder -continue duloxetine, gabapentin # recurrent left anterior chest wall pain lasting for seconds ongoing x3 months will apply lidocaine patch in follow question related to anxiety EKG unremarkable. DVT prophylaxis-on Eliquis Full code Patient required continued inpatient hospitalization for management of acute metabolic encephalopathy, LETHA, hyperkalemia requiring IV antibiotic therapy for UTI, close cardiac monitoring, close monitoring of renal function, and expert consultation Time Spent With Patient Time: Total time managing care of this patient today ____ minutes. Quality Stroke Does the patient have a stroke diagnosis?: No VTE Prior VTE?: No VTE Risk Level:: Medical - moderate - high VTE Device Contraindication: Treatment Not Indicated VTE Drug Contraindication: N/A - Med Ordered
[2022-06-11] MEDS: Lactated Ringers 1,000 ML 80 ML IVCONT (14:24)
[2022-06-11] MEDS: Lidocaine 4 % Patch ADH..PATCH 0.5 PATCH TRANSDERMA (14:25)
[2022-06-11 15:45] LABS: Glucose, Whole Blood 123 mg/dL (60-115)
[2022-06-11 19:51] LABS: Glucose, Whole Blood 137 mg/dL (60-115)
[2022-06-11] MEDS: QUEtiapine Fumarate 200 MG TABLET PO (21:02)
[2022-06-11] MEDS: Sodium Bicarbonate 650 MG TABLET PO (21:02)
[2022-06-12] VITALS (11 sets, daily range): BP systolic 114–181; BP diastolic 70–96; PULSE 64–105; RESP 17–21; TEMP 36.6–37.6; O2SAT 91–99
[2022-06-12] MEDS: Lactated Ringers 1,000 ML 80 ML IVCONT (05:48)
[2022-06-12 06:59] LABS: Anion Gap 15 (12-20); Blood Urea Nitrogen 57 mg/dL (9-16); Carbon Dioxide 19 mmol/L (22-29); Chloride 116 mmol/L (96-108); Creatinine Clr Calc Pharmacy 25.6; Estimated Glomerular Filt Rate 20; Glucose Random 121 mg/dL (60-115); Potassium 5.4 mmol/L (3.3-5.1); Sodium 145 mmol/L (135-145)
[2022-06-12] MEDS: Albuterol Sulfate 90 MCG 8 GM INHALER 2 PUFF INHALE ×3 (07:26→16:49)
[2022-06-12 08:00] LABS: Glucose, Whole Blood 121 mg/dL (60-115)
[2022-06-12] MEDS: amLODIPine Besylate 5 MG TABLET PO (08:53)
[2022-06-12] MEDS: Gabapentin 600 MG TABLET PO ×3 (08:53→21:00)
[2022-06-12] MEDS: FLUoxetine HCl 20 MG CAPSULE PO (08:53)
[2022-06-12] MEDS: Ferrous Sulfate 324 MG TABLET.DR PO (08:53)
[2022-06-12] MEDS: Sodium Zirconium Cyclosilicate 10 GM POWD.PACK PO ×2 (08:53→21:00)
[2022-06-12] MEDS: Metoprolol Tartrate 25 MG TABLET PO ×2 (08:53→21:00)
[2022-06-12] MEDS: Ezetimibe 10 MG TABLET PO (08:53)
[2022-06-12] MEDS: Apixaban 5 MG TABLET PO ×2 (08:53→21:00)
[2022-06-12] MEDS: Sodium Bicarbonate 650 MG TABLET PO ×2 (08:53→21:00)
[2022-06-12 11:50] LABS: Glucose, Whole Blood 146 mg/dL (60-115)
--- NOTE | 2022-06-12 12:21 | HO.PM.IMPN ---
Subjective Subjective Date of Service: 06/12/22 Interval History: Complaining of intermittent sharp needle-like left anterior chest wall pain lasting for seconds for last 3 months, no associated diaphoresis, lightheadedness ,dizziness, headache, or shortness of breath, tolerating diet, no nausea, no vomiting, no abdominal pain, or diarrhea, good urinary output, Solis catheter with clear urine. Review of Systems Review of Systems: Yes all other systems are reviewed and are negative Physical Exam Vital Signs: Vital Signs: Last Vital Signs Temp 98.1 F 06/12/22 08:00 Pulse 98 06/12/22 08:00 Resp 18 06/12/22 08:00 BP 149/78 H 06/12/22 08:00 Pulse Ox 95 06/12/22 08:00 O2 Del Method Room Air 06/12/22 08:00 BMI result Body Mass Index 48.2 Const: Other: General awake alert x3,no acute distress.? Neck? no JVD. CVS? regular rate rhythm, Respiratory lungs clear to auscultation, no respiratory distress, no wheeze, no rhonchi. Gastrointestinal abdomen soft, obese, nontender, bowel sounds audible No chest wall tenderness, no redness, no tenderness, good range of motion left shoulder. Extremities no? edema Back no CVA tenderness Neuro nonfocal, speech clear Psych appropriate affect Objective Data Active Medications Acetaminophen (Acetaminophen 325 Mg Tablet) 650 mg PO Q6H PRN PRN Reason: Pain, Mild (Pain Scale 1-3) Last Admin: 06/10/22 18:27 Dose: 650 mg Documented By: JEEVAN Albuterol Sulfate (Albuterol Sulfate 90 Mcg 8 Gm Inhaler) 2 puff INHALE QID PRN PRN Reason: Respiratory Distress Last Admin: 06/12/22 07:26 Dose: 2 puff Documented By: CAROLYN Amlodipine Besylate (Amlodipine Besylate 5 Mg Tablet) 5 mg PO DAILY ON LICENSE OF [facility]; Protocol Last Admin: 06/12/22 08:53 Dose: 5 mg Documented By: PIPER Apixaban (Apixaban 5 Mg Tablet) 5 mg PO BID ON LICENSE OF [facility] Last Admin: 06/12/22 08:53 Dose: 5 mg Documented By: PIPER Docusate Sodium (Docusate Sodium 100 Mg Capsule) 100 mg PO DAILY PRN PRN Reason: Constipation Ezetimibe (Ezetimibe 10 Mg Tablet) 10 mg PO DAILY ON LICENSE OF [facility] Last Admin: 06/12/22 08:53 Dose: 10 mg Documented By: PIPER Ferrous Sulfate (Ferrous Sulfate 324 Mg Tablet.) 324 mg PO DAILY ON LICENSE OF [facility] Last Admin: 06/12/22 08:53 Dose: 324 mg Documented By: PIPER Fluoxetine HCl (Fluoxetine Hcl 20 Mg Capsule) 20 mg PO DAILY ON LICENSE OF [facility] Last Admin: 06/12/22 08:53 Dose: 20 mg Documented By: PIPER Gabapentin (Gabapentin 600 Mg Tablet) 600 mg PO TID ON LICENSE OF [facility] Last Admin: 06/12/22 08:53 Dose: 600 mg Documented By: PIPER Glucose (Glucose Gel 15 Gm Gel..Gram.) 15 gm PO Q15M PRN; Protocol PRN Reason: per Hypoglycemia Standing Ord. Dextrose (D10) 250 mls @ 750 mls/hr IV Q15M PRN; Protocol PRN Reason: per Hypoglycemia Standing Ord. Lactated Ringer's (Lr) 1,000 mls @ 80 mls/hr IVCONT .[id number] ON LICENSE OF [facility] Last Infusion: 06/12/22 08:57 Dose: 0 mls/hr Documented By: PIPER Insulin Human Lispro (Insulin Lispro 100 Unit/Ml 3 Ml Vial) 0 unit SUBCUT QIDACHS ON LICENSE OF [facility]; Protocol Last Admin: 06/12/22 11:53 Dose: Not Given Documented By: PIPER Non-Admin Reason: No Insulin Coverage Metoprolol Tartrate (Metoprolol Tartrate 25 Mg Tablet) 25 mg PO BID ON LICENSE OF [facility]; Protocol Last Admin: 06/12/22 08:53 Dose: 25 mg Documented By: PIPER Non-Formulary Medication (Rosuvastatin) 20 mg PO BEDTIME ON LICENSE OF [facility] Ondansetron HCl (Ondansetron Hcl 4 Mg/2 Ml Vial) 4 mg IVPUSH Q8H PRN PRN Reason: Nausea and Vomiting Pharmacy Consult (Consult Rx Perform Med Rec) 1 each MISCELLANE ONCE PRN PRN Reason: Consult order Quetiapine Fumarate (Quetiapine Fumarate 200 Mg Tablet) 200 mg PO BEDTIME ON LICENSE OF [facility] Last Admin: 06/11/22 21:02 Dose: 200 mg Documented By: ANDRES Quetiapine Fumarate (Quetiapine Fumarate 300 Mg Tablet) 300 mg PO BEDTIME PRN PRN Reason: Insomnia Sodium Bicarbonate (Sodium Bicarbonate 650 Mg Tablet) 650 mg PO BID ON LICENSE OF [facility] Last Admin: 06/12/22 08:53 Dose: 650 mg Documented By: PIPER Sodium Chloride (0.9 % Sodium Chloride Flush 3 Ml Syringe) 3 ml IVFLUSH QSHIFT ON LICENSE OF [facility] Last Admin: 06/12/22 08:02 Dose: Not Given Documented By: PIPER Non-Admin Reason: IV Running Sodium Zirconium Cyclosilicate (Sodium Zirconium Cyclosilicate 10 Gm Powd.Pack) 10 gm PO BID ON LICENSE OF [facility] Last Admin: 06/12/22 08:53 Dose: 10 gm Documented By: PIPER Labs 06/10/22 04:59 06/12/22 06:24 Labs: Laboratory Results - last 24 hr 06/11/22 06/11/22 06/12/22 15:33 19:39 06:24 Anion Gap 15 Estim Creat Clear Calc 25.6 Estimated GFR 20 POC Glucose 123 H 137 H Random Glucose 121 H Calcium 8.0 L D 06/12/22 06/12/22 07:42 11:43 Anion Gap Estim Creat Clear Calc Estimated GFR POC Glucose 121 H 146 H Random Glucose Calcium Microbiology Microbiology Results: Microbiology 06/09/22 19:05 Urine Culture - Preliminary Urine clean catch - Urine [facility] top Yeast 06/09/22 16:18 Blood Culture - Preliminary Blood - Venous No growth after 48 hours. 06/09/22 16:06 Blood Culture - Preliminary Blood - Venous No growth after 48 hours. Assessment and Plan (1) Acute metabolic encephalopathy: Status: Acute (2) Hyperkalemia: Status: Acute Plan 76-year-old female patient with past medical history significant for hypertension, hyperlipidemia, diabetes mellitus on insulin, coronary artery disease, paroxysaml atrial flutter on eliquis, chronic bilateral leg weakness on motorized chair, history of cervical spine surgery, history of anxiety depression, chronic pain syndrome, history of chronic kidney disease with history of bilateral hydronephrosis / hydroureter and distended bladder?admitted for acute metabolic encephalopathy, LETHA, UTI. # acute on chronic kidney disease stage 3 -creatinine 3.65, on admission, gradually trending down, 2.37 today, baseline creatinine less than 2, will DC IV fluids -Ct abd/pelvis showed mild right and [id number] left hydro ureteral nephrosis new when compared to recent CT abdomen, no obstructing stones or bladder abnormality noted, good urine output -likely obstructive, Solis catheter placed, follow BMP and clinical course Being followed by Nephrology no indication for hemodialysis, Urology consult obtained/pend # acute hyperkalemia- likely due to LETHA -on arrival, K 7.2.? Improved to 5.4 , on Lokelma 10 mg b.i.d. and follow BMP - #Acute metabolic acidosis -2/2 LETHA,on soda bicarb 650mg bid, follow BMP # acute metabolic encephalopathy-likely secondary to LETHA, UTI -resolved # insulin-dependent type 2 diabetes-without hyperglycemia -stable blood sugars continue diabetic diet, Humalog sliding scale and monitor POC glucose # hypertension-reasonably controlled -continue amlodipine and beta-blockers -hold lisinopril-hydrochlorothiazide in setting of LETHA # CAD/HLD -no anginal chest pain,continue beta-lanette, statin, Zetia # paroxysmal atrial fibrillation-rate controlled -continue Eliquis and metoprolol # mood disorder -continue home meds # chronic pain disorder -continue duloxetine, gabapentin # recurrent left anterior chest wall pain lasting for seconds ongoing x3 months placed on lidocaine patch,follow, question related to anxiety, EKG and trop unremarkable. DVT prophylaxis-on Eliquis Full code Patient required continued inpatient hospitalization for management of LETHA, hyperkalemia , close cardiac monitoring, close monitoring of renal function, and expert consultation Time Spent With Patient Time: Total time managing care of this patient today ____ minutes. Quality Stroke Does the patient have a stroke diagnosis?: No VTE Prior VTE?: No VTE Risk Level:: Medical - moderate - high VTE Device Contraindication: Treatment Not Indicated VTE Drug Contraindication: N/A - Med Ordered
[2022-06-12] MEDS: 0.9 % Sodium Chloride Flush 3 ML SYRINGE IVFLUSH ×2 (15:19→21:00)
[2022-06-12 15:48] LABS: Glucose, Whole Blood 144 mg/dL (60-115)
--- NOTE | 2022-06-12 19:19 | PM.PNNEP ---
Subjective Subjective Date of Service: 06/12/22 Interval history: Complaining of intermittent sharp needle-like left anterior chest wall pain lasting for seconds for last 3 months, no associated diaphoresis, lightheadedness ,dizziness, headache, or shortness of breath, tolerating diet, no nausea, no vomiting, no abdominal pain, or diarrhea, good urinary output, Solis catheter with clear urine. Physical Exam Vital Signs: Vital Signs: Last Vital Signs Temp 99.6 F 06/12/22 15:27 Pulse 102 H 06/12/22 15:27 Resp 17 06/12/22 15:27 BP 181/92 H 06/12/22 15:27 Pulse Ox 92 06/12/22 15:27 O2 Del Method Room Air 06/12/22 15:27 BMI result Body Mass Index 48.2 Objective Data Labs 06/10/22 04:59 06/12/22 06:24 Labs: Laboratory Results - last 24 hr 06/11/22 06/12/22 06/12/22 19:39 06:24 07:42 Sodium 145 Potassium 5.4 H Chloride 116 H Carbon Dioxide 19 L Anion Gap 15 BUN 57 H Creatinine 2.37 H Estim Creat Clear Calc 25.6 Estimated GFR 20 POC Glucose 137 H 121 H Random Glucose 121 H Calcium 8.0 L D 06/12/22 06/12/22 11:43 15:30 Sodium Potassium Chloride Carbon Dioxide Anion Gap BUN Creatinine Estim Creat Clear Calc Estimated GFR POC Glucose 146 H 144 H Random Glucose Calcium Microbiology Microbiology Results: Microbiology 06/09/22 19:05 Urine clean catch - Urine [facility] top Urine Culture - Preliminary Yeast 06/09/22 16:18 Blood - Venous Blood Culture - Preliminary No growth after 48 hours. 06/09/22 16:06 Blood - Venous Blood Culture - Preliminary No growth after 48 hours. Procedures Date of Service Date of Service: 06/12/22 Assessment & Plan Time Spent With Patient Time: Total time managing care of this patient today ____ minutes. Progress Note: Quality Stroke Does the patient have a stroke diagnosis?: No
--- NOTE | 2022-06-12 19:40 | PC.NURSE ---
at 1700 pt complained of SOB, RT called for PRN neb tx in the mean time this nurse went to give PRN albuterol pump with no relief. pt was desating - 86-87% on RA. 3L of O2 was started and pt came back up to low 90s. this nurse encouraged pt to breath in through the nose and out through the mouth which helpped with pt's anxiety as well. pt vitals other waldron stable. notified, and will continue to monitor.
[2022-06-12] MEDS: Albuterol/Iprat 2.5/0.5MG 3 ML AMPUL.NEB INHALE (19:59)
[2022-06-12 20:05] LABS: Glucose, Whole Blood 216 mg/dL (60-115)
[2022-06-12] MEDS: QUEtiapine Fumarate 200 MG TABLET PO (21:00)
[2022-06-12] MEDS: Insulin Lispro 100 UNIT/ML 3 ML VIAL SUBCUT (21:00)
[2022-06-13] VITALS (10 sets, daily range): BP systolic 145–175; BP diastolic 80–95; PULSE 92–130; RESP 18–98; TEMP 36.3–37.3; O2SAT 90–99
[2022-06-13] MEDS: Albuterol/Iprat 2.5/0.5MG 3 ML AMPUL.NEB INHALE ×3 (07:38→20:40)
[2022-06-13 07:44] LABS: Glucose, Whole Blood 131 mg/dL (60-115)
--- NOTE | 2022-06-13 10:14 | MHC.CM.PN ---
PER MD ROUNDS, PT NOT YET MEDICALLY CLEARED DCP REMAINS HOME WITH RESUMPTION OF [facility] AND [facility]. DAUGHTER/HCP, RENATO TO TRANSPORT
--- NOTE | 2022-06-13 10:43 | P.PNNP_ITS ---
Subjective Subjective Date of Service: 06/14/22 Interval history: Feeling better today. Currently nonoliguric with Solis. Physical Exam 2 Vital Signs: Vital Signs: Last Vital Signs Temp 97.4 F 06/13/22 07:54 Pulse 107 H 06/13/22 07:54 Resp 24 H 06/13/22 07:54 BP 175/82 H 06/13/22 07:54 Pulse Ox 99 06/13/22 07:54 O2 Del Method Nasal Cannula 06/13/22 03:23 O2 Flow Rate 2 06/13/22 03:23 BMI result Body Mass Index 48.2 Const: Other: General awake alert x3,no acute distress.? Neck? no JVD. CVS? regular rate rhythm, Respiratory lungs clear to auscultation, no respiratory distress, no wheeze, no rhonchi. Gastrointestinal abdomen soft, obese, nontender, bowel sounds audible Extremities no? edema Back no CVA tenderness Neuro nonfocal, speech clear Psych appropriate affect Solis catheter with cloudy urine Objective Data Labs 06/10/22 04:59 06/12/22 06:24 Labs: Laboratory Results - last 24 hr 06/12/22 06/12/22 06/12/22 11:43 15:30 19:53 POC Glucose 146 H 144 H 216 H 06/13/22 07:31 POC Glucose 131 H Microbiology Microbiology Results: Microbiology 06/09/22 19:05 Urine clean catch - Urine [facility] top Urine Culture - Final Jennifer parapsilosis 06/09/22 16:18 Blood - Venous Blood Culture - Preliminary No growth after 48 hours. 06/09/22 16:06 Blood - Venous Blood Culture - Preliminary No growth after 48 hours. Procedures Date of Service Date of Service: 06/13/22 Assessment & Plan Assessment and plan (1) LETHA (acute kidney injury): Status: Acute Plan Acute kidney injury superimposed on chronic kidney disease with severe hyperkalemia primarily due to obstructive uropathy/urinary retention. She could have superimposed tubular injury. No reason to believe she has any active glomerulonephritis at this time. Obstructive uropathy. Anemia without thrombocytopenia. Hyperchloremic metabolic acidosis. Recommendations Keep Solis catheter. Urology consultation. Treat hyperkalemia medically. Agree with Lokelma to maintain serum potassium less than 5.2 millimoles. IV hydration to keep intake more than the output. sodium bicarbonate to correct acidosis. Continued to avoid nephrotoxic agents. Follow renal function closely. Today's labs pending There is no absolute indication for dialysis yet. We will follow her along with the team. Time Spent With Patient Time: Total time managing care of this patient today ____ minutes. Progress Note: Quality Stroke Does the patient have a stroke diagnosis?: No
[2022-06-13] MEDS: Sodium Zirconium Cyclosilicate 10 GM POWD.PACK PO (10:44)
[2022-06-13] MEDS: Sodium Bicarbonate 650 MG TABLET PO (10:45)
[2022-06-13] MEDS: Ezetimibe 10 MG TABLET PO (10:45)
[2022-06-13] MEDS: 0.9 % Sodium Chloride Flush 3 ML SYRINGE IVFLUSH ×2 (10:46→17:38)
[2022-06-13] MEDS: Ferrous Sulfate 324 MG TABLET.DR PO (10:46)
[2022-06-13] MEDS: FLUoxetine HCl 20 MG CAPSULE PO (10:46)
[2022-06-13] MEDS: amLODIPine Besylate 5 MG TABLET PO (10:46)
[2022-06-13] MEDS: Apixaban 5 MG TABLET PO (10:46)
[2022-06-13] MEDS: Metoprolol Tartrate 25 MG TABLET PO (10:46)
[2022-06-13 11:22] LABS: Hematocrit 30.6 % (37.0-47.0); Hemoglobin 9.6 g/dl (12.0-16.0); Mean Corpuscular HGB Conc 31.4 g/dl (31.0-35.0); Mean Corpuscular Hemoglobin 30.9 pg (27.0-33.0); Mean Corpuscular Volume 98.4 fL (80.0-98.0); Mean Platelet Volume 10.8 fL (9.4-12.3); NRBC Pct Auto 0.2 /100WBC (0.0-0.2); Platelet Count 259 X10*3/uL (160-400); Red Blood Count 3.11 X10*6/uL (4.20-5.50); Red Cell Distribution Width 15.2 % (11.0-16.0); White Blood Count 11.9 X10*3/uL (4.8-10.8)
[2022-06-13 11:32] LABS: ABG Base Excess -3.5 mmol/L; ABG HCO3 21 mmol/L (22-26); ABG pCO2 38 mmHg (32-45); ABG pH 7.35 (7.35-7.45); ABG pO2 77 mmHg (83-108)
[2022-06-13 11:37] LABS: ABG Refer to POC result
[2022-06-13 11:38] LABS: Anion Gap 17 (12-20); Blood Urea Nitrogen 47 mg/dL (9-16); C Reactive Protein 21.47 mg/dL (< or = 0.50); Calcium 8.3 mg/dL (8.4-10.2); Carbon Dioxide 19 mmol/L (22-29); Chloride 113 mmol/L (96-108); Creatinine Clr Calc Pharmacy 30.2; Estimated Glomerular Filt Rate 24; Glucose Random 133 mg/dL (60-115); Potassium 4.8 mmol/L (3.3-5.1); Sodium 144 mmol/L (135-145)
[2022-06-13 11:53] LABS: Glucose, Whole Blood 136 mg/dL (60-115)
[2022-06-13 11:53] LABS: Ammonia 29 umol/L (13-55)
[2022-06-13 12:23] LABS: Procalcitonin 0.32 ng/mL
--- NOTE | 2022-06-13 14:42 | HO.PM.IMPN ---
Subjective Subjective Date of Service: 06/13/22 Interval History: This history was taken in Sinhala from the patient. Pt is hallucinating, per family and nursing this started yesterday Has some coughing No fever Review of Systems Review of Systems: Yes Unobtainable due to mental status Physical Exam Vital Signs: Vital Signs: Last Vital Signs Temp 98.5 F 06/13/22 11:16 Pulse 98 06/13/22 13:34 Resp 98 H 06/13/22 13:34 BP 173/93 H 06/13/22 13:34 Pulse Ox 99 06/13/22 07:54 O2 Del Method Nasal Cannula 06/13/22 03:23 O2 Flow Rate 2 06/13/22 03:23 BMI result Body Mass Index 48.2 Gen: in no acute distress HEENT: sclera anicteric, moist mucus membranes Neck: supple Lungs: diminished bilaterally Heart: regular rate and rhythm, no murmurs Abd: soft, non-tender, non-distended, morbid obesity : Solis with clear urine Ext: no edema Skin: warm/well-perfused Neuro: alert, confused, disoriented Psych: impaired insight Objective Data Active Medications Acetaminophen (Acetaminophen 325 Mg Tablet) 650 mg PO Q6H PRN PRN Reason: Pain, Mild (Pain Scale 1-3) Last Admin: 06/10/22 18:27 Dose: 650 mg Documented By: JEEVAN Albuterol Sulfate (Albuterol Sulfate 90 Mcg 8 Gm Inhaler) 2 puff INHALE QID PRN PRN Reason: Respiratory Distress Last Admin: 06/12/22 16:49 Dose: 2 puff Documented By: PIPER Albuterol/Ipratropium (Albuterol/Iprat 2.5/0.5mg 3 Ml Ampul.Neb) 3 ml INHALE RQ4H PRN PRN Reason: Wheezing Albuterol/Ipratropium (Albuterol/Iprat 2.5/0.5mg 3 Ml Ampul.Neb) 3 ml INHALE RQ4H WHILE AWAKE [facility] Last Admin: 06/13/22 11:15 Dose: 3 ml Documented By: LIV Amlodipine Besylate (Amlodipine Besylate 5 Mg Tablet) 5 mg PO DAILY [facility]; Protocol Last Admin: 06/13/22 10:46 Dose: 5 mg Documented By: LAM Apixaban (Apixaban 5 Mg Tablet) 5 mg PO BID [facility] Last Admin: 06/13/22 10:46 Dose: 5 mg Documented By: LAM Docusate Sodium (Docusate Sodium 100 Mg Capsule) 100 mg PO DAILY PRN PRN Reason: Constipation Ezetimibe (Ezetimibe 10 Mg Tablet) 10 mg PO DAILY [facility] Last Admin: 06/13/22 10:45 Dose: 10 mg Documented By: LAM Ferrous Sulfate (Ferrous Sulfate 324 Mg Tablet.Dr) 324 mg PO DAILY [facility] Last Admin: 06/13/22 10:46 Dose: 324 mg Documented By: LAM Fluoxetine HCl (Fluoxetine Hcl 20 Mg Capsule) 20 mg PO DAILY [facility] Last Admin: 06/13/22 10:46 Dose: 20 mg Documented By: LAM Glucose (Glucose Gel 15 Gm Gel..Gram.) 15 gm PO Q15M PRN; Protocol PRN Reason: per Hypoglycemia Standing Ord. Dextrose (D10) 250 mls @ 750 mls/hr IV Q15M PRN; Protocol PRN Reason: per Hypoglycemia Standing Ord. Insulin Human Lispro (Insulin Lispro 100 Unit/Ml 3 Ml Vial) 0 unit SUBCUT QIDACHS [facility]; Protocol Last Admin: 06/13/22 10:41 Dose: Not Given Documented By: LAM Non-Admin Reason: No Insulin Coverage Metoprolol Tartrate (Metoprolol Tartrate 25 Mg Tablet) 25 mg PO BID [facility]; Protocol Last Admin: 06/13/22 10:46 Dose: 25 mg Documented By: LAM Non-Formulary Medication (Rosuvastatin) 20 mg PO BEDTIME [facility] Nystatin (Nystatin Powder 15 Gm Bottle) 1 appl TOPICAL TID [facility]; Protocol Ondansetron HCl (Ondansetron Hcl 4 Mg/2 Ml Vial) 4 mg IVPUSH Q8H PRN PRN Reason: Nausea and Vomiting Pharmacy Consult (Consult Rx Perform Med Rec) 1 each MISCELLANE ONCE PRN PRN Reason: Consult order Sodium Bicarbonate (Sodium Bicarbonate 650 Mg Tablet) 650 mg PO BID [facility] Last Admin: 06/13/22 10:45 Dose: 650 mg Documented By: LAM Sodium Chloride (0.9 % Sodium Chloride Flush 3 Ml Syringe) 3 ml IVFLUSH QSHIFT [facility] Last Admin: 06/13/22 10:46 Dose: 3 ml Documented By: LAM Sodium Zirconium Cyclosilicate (Sodium Zirconium Cyclosilicate 10 Gm Powd.Pack) 10 gm PO BID [facility] Last Admin: 06/13/22 10:44 Dose: 10 gm Documented By: LAM Labs 06/13/22 11:08 06/13/22 05:55 Labs: Laboratory Results - last 24 hr 06/12/22 06/12/22 06/13/22 15:30 19:53 05:55 MCV MCH MCHC RDW Plt Count MPV Absolute Nucleated RBC Nucleated RBC % (auto) O2 Saturation ABG pH at Pt Temp ABG pCO2 at Pt Temp ABG pO2 at Pt Temp ABG HCO3 ABG Base Excess (Actual) Anion Gap 17 Estim Creat Clear Calc 30.2 Estimated GFR 24 POC Glucose 144 H 216 H Random Glucose 133 H Calcium 8.3 L Ammonia C-Reactive Protein 21.47 H Procalcitonin 0.32 06/13/22 06/13/22 06/13/22 07:31 11:08 11:08 MCV 98.4 H MCH 30.9 MCHC 31.4 RDW 15.2 Plt Count 259 MPV 10.8 Absolute Nucleated RBC 0.020 H Nucleated RBC % (auto) 0.2 O2 Saturation ABG pH at Pt Temp ABG pCO2 at Pt Temp ABG pO2 at Pt Temp ABG HCO3 ABG Base Excess (Actual) Anion Gap Estim Creat Clear Calc Estimated GFR POC Glucose 131 H Random Glucose Calcium Ammonia 29 C-Reactive Protein Procalcitonin 06/13/22 06/13/22 11:25 11:35 MCV MCH MCHC RDW Plt Count MPV Absolute Nucleated RBC Nucleated RBC % (auto) O2 Saturation 95.0 ABG pH at Pt Temp 7.35 ABG pCO2 at Pt Temp 38 ABG pO2 at Pt Temp 77 L ABG HCO3 21 L ABG Base Excess (Actual) -3.5 Anion Gap Estim Creat Clear Calc Estimated GFR POC Glucose 136 H Random Glucose Calcium Ammonia C-Reactive Protein Procalcitonin Microbiology Microbiology Results: Microbiology 06/09/22 19:05 Urine Culture - Final Urine clean catch - Urine [place] top Jennifer parapsilosis Assessment and Plan (1) Acute metabolic encephalopathy: Status: Acute (2) Hyperkalemia: Status: Acute Plan hospital d#5 76yo F with HTN, HLD, DM2, CAD, pAF on apixaban, chronic BLE weakness [uses motorized chair], anxiety, depression, chronic pain syndrome, CKD with bilateral hydroureteronephrosis admitted for acute metabolic encephalopathy, LETHA # acute toxic/metabolic encephalopathy - appears to be worsening despite improvement in renal function- will work up for infection- check CXR, PCT, CRP, BCx and start empiric ceftriaxone + doxycycline for possible PNA, check CT head as well - polypharmacy? d/c quetiapine + gabapentin as she is on quite high doses # LETHA/CKD3 - SCr improved with Solis, likely obstructive uropathy, Nephrology following, Urology consult pending - hold lisinopril-HCTZ # hyperK due to LETHA - K 7.2 on arrival, now 4.8, d/c Lokelma # metabolic acidosis - continue bicarbonate supplementation # DM2 - continue correction-dose lispro # HTN - cotinue amlodipine + metoprolol - hold lisinopril-HCTZ as above # CAD - continue metoprolol + statin + ezetimbe # paroxysmal AF - continue apixaban + metoprolol # mood disorder - continue fluoxetine + duloxetine, d/c quetiapine as above # chronic pain - /c gabapentin as above # chest wall pain - troponin + EKG unremarkable # VTE ppx: apixaban # dispo: TBD In my clinical judgment, the patient requires continued inpatient hospitalization for the following reasons: encephalopathy, LETHA Time Spent With Patient Time: Total time managing care of this patient today __55__ minutes. Quality Stroke Does the patient have a stroke diagnosis?: No VTE Prior VTE?: No VTE Risk Level:: Medical - moderate - high VTE Device Contraindication: Treatment Not Indicated VTE Drug Contraindication: N/A - Med Ordered
[2022-06-13 15:57] LABS: Glucose, Whole Blood 129 mg/dL (60-115)
[2022-06-13] MEDS: Doxycycline Hyclate 100 MG in 0.9 % Sodium Chloride 250 ML 166.67 MG IV (17:32)
[2022-06-13] MEDS: cefTRIAXone sodium 1 GM in 0.9 % Sodium Chloride 50 ML IV (17:38)
[2022-06-13 20:26] LABS: Glucose, Whole Blood 160 mg/dL (60-115)
[2022-06-13] MEDS: Insulin Lispro 100 UNIT/ML 3 ML VIAL SUBCUT (22:25)
[2022-06-13] MEDS: OLANZapine 10 MG VIAL 5 MG IM (22:26)
[2022-06-14] VITALS (10 sets, daily range): BP systolic 154–184; BP diastolic 84–111; PULSE 90–130; RESP 16–22; TEMP 36.3–37.2; O2SAT 88–94
--- NOTE | 2022-06-14 00:57 | PM.EVENT ---
Event Note Date of Service: 06/14/22 Event Note: pt agitated, not following command, shes refusing po meds including bicarb. tachycardic with HR in 130s given zyprexa, lopressor, and iv push of bicarb Time Spent With Patient Time: Total time managing care of this patient today ____ minutes.
[2022-06-14] MEDS: Metoprolol Tartrate 5 MG/5 ML VIAL IVPUSH (02:01)
[2022-06-14] MEDS: 0.9 % Sodium Chloride Flush 3 ML SYRINGE IVFLUSH ×3 (02:05→16:00)
[2022-06-14] MEDS: Doxycycline Hyclate 100 MG in 0.9 % Sodium Chloride 250 ML 166.67 MG IV ×2 (04:36→15:56)
[2022-06-14] MEDS: hydrALAZINE HCl 20 MG/ML VIAL 5 MG IVPUSH (04:36)
--- NOTE | 2022-06-14 05:51 | PC.NURSE ---
Pt was agitated, not following command, hallucinating and refusing po meds including bicarb. She was tachycardic with HR in 130s and elevated BP. LEt Dr Garcia know who ordered zyprexa, lopressor, and hydralazine. Will continue to monitor.
[2022-06-14 06:37] LABS: Hemoglobin 9.5 g/dl (12.0-16.0); Mean Corpuscular HGB Conc 30.6 g/dl (31.0-35.0); Mean Corpuscular Volume 97.8 fL (80.0-98.0); Mean Platelet Volume 10.7 fL (9.4-12.3); NRBC Pct Auto 0.1 /100WBC (0.0-0.2); Platelet Count 293 X10*3/uL (160-400); Red Blood Count 3.17 X10*6/uL (4.20-5.50); Red Cell Distribution Width 15.2 % (11.0-16.0); White Blood Count 14.4 X10*3/uL (4.8-10.8)
[2022-06-14 06:59] LABS: Anion Gap 17 (12-20); Blood Urea Nitrogen 39 mg/dL (9-16); Calcium 8.7 mg/dL (8.4-10.2); Carbon Dioxide 20 mmol/L (22-29); Chloride 114 mmol/L (96-108); Creatinine Clr Calc Pharmacy 36.3; Estimated Glomerular Filt Rate 30; Glucose Random 135 mg/dL (60-115); Potassium 4.8 mmol/L (3.3-5.1); Sodium 146 mmol/L (135-145)
[2022-06-14] MEDS: Albuterol/Iprat 2.5/0.5MG 3 ML AMPUL.NEB INHALE ×4 (07:44→18:57)
[2022-06-14 07:47] LABS: Glucose, Whole Blood 137 mg/dL (60-115)
[2022-06-14] MEDS: Metoprolol Tartrate 25 MG TABLET PO ×2 (08:39→21:33)
[2022-06-14] MEDS: Apixaban 5 MG TABLET PO ×2 (08:39→21:33)
[2022-06-14] MEDS: FLUoxetine HCl 20 MG CAPSULE PO (08:39)
[2022-06-14] MEDS: Sodium Bicarbonate 650 MG TABLET PO ×2 (08:39→21:40)
[2022-06-14] MEDS: Ferrous Sulfate 324 MG TABLET.DR PO (08:39)
[2022-06-14] MEDS: Ezetimibe 10 MG TABLET PO (08:39)
[2022-06-14] MEDS: amLODIPine Besylate 5 MG TABLET PO (08:39)
--- NOTE | 2022-06-14 10:40 | P.PNNP_ITS ---
Subjective Subjective Date of Service: 06/14/22 Interval history: This history was taken in Maltese from the patient. Pt is hallucinating, per family and nursing this started yesterday Has some coughing No fever Physical Exam Vital Signs: Vital Signs: Last Vital Signs Temp 98.2 F 06/14/22 07:39 Pulse 102 H 06/14/22 07:46 Resp 20 06/14/22 07:46 BP 168/84 H 06/14/22 08:40 Pulse Ox 94 06/14/22 07:39 O2 Del Method Nasal Cannula 06/14/22 07:39 O2 Flow Rate 3 06/14/22 07:39 BMI result Body Mass Index 48.2 Const: Other: General awake alert x3,no acute distress.? Neck? no JVD. CVS? regular rate rhythm, Respiratory lungs clear to auscultation, no respiratory distress, no wheeze, no rhonchi. Gastrointestinal abdomen soft, obese, nontender, bowel sounds audible Extremities no? edema Back no CVA tenderness Neuro nonfocal, speech clear Psych appropriate affect Solis catheter with cloudy urine Objective Data Labs 06/14/22 06:10 06/14/22 06:10 Labs: Laboratory Results - last 24 hr 06/13/22 06/13/22 06/13/22 05:55 11:08 11:08 WBC 11.9 H RBC 3.11 L Hgb 9.6 L Hct 30.6 L MCV 98.4 H MCH 30.9 MCHC 31.4 RDW 15.2 Plt Count 259 MPV 10.8 Absolute Nucleated RBC 0.020 H Nucleated RBC % (auto) 0.2 O2 Saturation ABG pH at Pt Temp ABG pCO2 at Pt Temp ABG pO2 at Pt Temp ABG HCO3 ABG Base Excess (Actual) Sodium 144 Potassium 4.8 Chloride 113 H Carbon Dioxide 19 L Anion Gap 17 BUN 47 H Creatinine 2.01 H Estim Creat Clear Calc 30.2 Estimated GFR 24 POC Glucose Random Glucose 133 H Calcium 8.3 L Ammonia 29 C-Reactive Protein 21.47 H Procalcitonin 0.32 06/13/22 06/13/22 06/13/22 11:25 11:35 15:42 WBC RBC Hgb Hct MCV MCH MCHC RDW Plt Count MPV Absolute Nucleated RBC Nucleated RBC % (auto) O2 Saturation 95.0 ABG pH at Pt Temp 7.35 ABG pCO2 at Pt Temp 38 ABG pO2 at Pt Temp 77 L ABG HCO3 21 L ABG Base Excess (Actual) -3.5 Sodium Potassium Chloride Carbon Dioxide Anion Gap BUN Creatinine Estim Creat Clear Calc Estimated GFR POC Glucose 136 H 129 H Random Glucose Calcium Ammonia C-Reactive Protein Procalcitonin 06/13/22 06/14/22 06/14/22 20:18 06:10 06:10 WBC 14.4 H RBC 3.17 L Hgb 9.5 L Hct 31.0 L MCV 97.8 MCH 30.0 MCHC 30.6 L RDW 15.2 Plt Count 293 MPV 10.7 Absolute Nucleated RBC 0.020 H Nucleated RBC % (auto) 0.1 O2 Saturation ABG pH at Pt Temp ABG pCO2 at Pt Temp ABG pO2 at Pt Temp ABG HCO3 ABG Base Excess (Actual) Sodium 146 H Potassium 4.8 Chloride 114 H Carbon Dioxide 20 L Anion Gap 17 BUN 39 H Creatinine 1.67 H Estim Creat Clear Calc 36.3 Estimated GFR 30 POC Glucose 160 H Random Glucose 135 H Calcium 8.7 Ammonia C-Reactive Protein Procalcitonin 06/14/22 07:39 WBC RBC Hgb Hct MCV MCH MCHC RDW Plt Count MPV Absolute Nucleated RBC Nucleated RBC % (auto) O2 Saturation ABG pH at Pt Temp ABG pCO2 at Pt Temp ABG pO2 at Pt Temp ABG HCO3 ABG Base Excess (Actual) Sodium Potassium Chloride Carbon Dioxide Anion Gap BUN Creatinine Estim Creat Clear Calc Estimated GFR POC Glucose 137 H Random Glucose Calcium Ammonia C-Reactive Protein Procalcitonin Microbiology Microbiology Results: Microbiology 06/09/22 19:05 Urine clean catch - Urine [facility] top Urine Culture - Final Jennifer parapsilosis 06/09/22 16:18 Blood - Venous Blood Culture - Preliminary No growth after 48 hours. 06/09/22 16:06 Blood - Venous Blood Culture - Preliminary No growth after 48 hours. Procedures Date of Service Date of Service: 06/14/22 Assessment & Plan Assessment and plan (1) LETHA (acute kidney injury): Status: Acute Plan Acute kidney injury superimposed on chronic kidney disease with severe hyperkalemia primarily due to obstructive uropathy/urinary retention. She could have superimposed tubular injury. No reason to believe she has any active glomerulonephritis at this time. Obstructive uropathy. Anemia without thrombocytopenia. Hyperchloremic metabolic acidosis. Recommendations Keep Solis catheter. Urology consultation. Watch K keep intake more than the output. sodium bicarbonate to correct acidosis. Continued to avoid nephrotoxic agents. Follow renal function closely. . We will follow her along upon DC Time Spent With Patient Time: Total time managing care of this patient today ____ minutes. Progress Note: Quality Stroke Does the patient have a stroke diagnosis?: No
[2022-06-14 11:17] LABS: Glucose, Whole Blood 133 mg/dL (60-115)
--- NOTE | 2022-06-14 11:17 | P.PNIM_ITS ---
Subjective Subjective Date of Service: 06/14/22 Interval History: This history was taken in Yoruba from the patient. Agitated overnight refusing PO meds- given 1 dose olanzapine Now calm though still disoriented [oriented to self] Review of Systems Review of Systems: Yes Unobtainable due to mental status Physical Exam Vital Signs: Vital Signs: Last Vital Signs Temp 97.5 F 06/14/22 10:58 Pulse 93 06/14/22 10:58 Resp 17 06/14/22 10:58 BP 154/89 H 06/14/22 10:58 Pulse Ox 93 06/14/22 10:58 O2 Del Method Nasal Cannula 06/14/22 10:58 O2 Flow Rate 3 06/14/22 10:58 BMI result Body Mass Index 48.2 Gen: in no acute distress HEENT: sclera anicteric, moist mucus membranes Neck: supple Lungs: diminished bilaterally Heart: regular rate and rhythm, no murmurs Abd: soft, non-tender, non-distended, morbid obesity : Solis with clear urine Ext: no edema Skin: warm/well-perfused Neuro: alert, confused, oriented to self only Psych: impaired insight Objective Data Active Medications Acetaminophen (Acetaminophen 325 Mg Tablet) 650 mg PO Q6H PRN PRN Reason: Pain, Mild (Pain Scale 1-3) Last Admin: 06/10/22 18:27 Dose: 650 mg Documented By: JEEVAN Albuterol Sulfate (Albuterol Sulfate 90 Mcg 8 Gm Inhaler) 2 puff INHALE QID PRN PRN Reason: Respiratory Distress Last Admin: 06/12/22 16:49 Dose: 2 puff Documented By: PIPER Albuterol/Ipratropium (Albuterol/Iprat 2.5/0.5mg 3 Ml Ampul.Neb) 3 ml INHALE RQ4H PRN PRN Reason: Wheezing Albuterol/Ipratropium (Albuterol/Iprat 2.5/0.5mg 3 Ml Ampul.Neb) 3 ml INHALE RQ4H WHILE AWAKE [facility] Last Admin: 06/14/22 07:44 Dose: 3 ml Documented By: LATOYA Amlodipine Besylate (Amlodipine Besylate 5 Mg Tablet) 5 mg PO DAILY [facility]; Protocol Last Admin: 06/14/22 08:39 Dose: 5 mg Documented By: JEEVAN Apixaban (Apixaban 5 Mg Tablet) 5 mg PO BID [facility] Last Admin: 06/14/22 08:39 Dose: 5 mg Documented By: JEEVAN Atorvastatin Calcium (Atorvastatin Calcium 80 Mg Tablet) 80 mg PO BEDTIME [facility] Docusate Sodium (Docusate Sodium 100 Mg Capsule) 100 mg PO DAILY PRN PRN Reason: Constipation Ezetimibe (Ezetimibe 10 Mg Tablet) 10 mg PO DAILY [facility] Last Admin: 06/14/22 08:39 Dose: 10 mg Documented By: JEEVAN Ferrous Sulfate (Ferrous Sulfate 324 Mg Tablet.Dr) 324 mg PO DAILY [facility] Last Admin: 06/14/22 08:39 Dose: 324 mg Documented By: JEEVAN Fluoxetine HCl (Fluoxetine Hcl 20 Mg Capsule) 20 mg PO DAILY [facility] Last Admin: 06/14/22 08:39 Dose: 20 mg Documented By: JEEVAN Glucose (Glucose Gel 15 Gm Gel..Gram.) 15 gm PO Q15M PRN; Protocol PRN Reason: per Hypoglycemia Standing Ord. Dextrose (D10) 250 mls @ 750 mls/hr IV Q15M PRN; Protocol PRN Reason: per Hypoglycemia Standing Ord. Ceftriaxone Sodium 1 gm/ (Sodium Chloride) 50 mls @ 100 mls/hr IV Q24H [facility] Last Infusion: 06/13/22 18:52 Dose: 0 mls/hr Documented By: LAM Doxycycline Hyclate 100 mg/ (Sodium Chloride) 250 mls @ 166.67 mls/hr IV Q12H [facility] Last Infusion: 06/14/22 08:43 Dose: 0 mls/hr Documented By: JEEVAN Insulin Human Lispro (Insulin Lispro 100 Unit/Ml 3 Ml Vial) 0 unit SUBCUT QIDACHS [facility]; Protocol Last Admin: 06/14/22 08:40 Dose: Not Given Documented By: JEEVAN Non-Admin Reason: No Insulin Coverage Metoprolol Tartrate (Metoprolol Tartrate 25 Mg Tablet) 25 mg PO BID [facility]; Protocol Last Admin: 06/14/22 08:39 Dose: 25 mg Documented By: JEEVAN Nystatin (Nystatin Powder 15 Gm Bottle) 1 appl TOPICAL TID [facility]; Protocol Last Admin: 06/13/22 22:39 Dose: Not Given Documented By: COLLIN Non-Admin Reason: Patient Refused Ondansetron HCl (Ondansetron Hcl 4 Mg/2 Ml Vial) 4 mg IVPUSH Q8H PRN PRN Reason: Nausea and Vomiting Pharmacy Consult (Consult Rx Perform Med Rec) 1 each MISCELLANE ONCE PRN PRN Reason: Consult order Sodium Bicarbonate (Sodium Bicarbonate 650 Mg Tablet) 650 mg PO BID [facility] Last Admin: 06/14/22 08:39 Dose: 650 mg Documented By: JEEVAN Sodium Chloride (0.9 % Sodium Chloride Flush 3 Ml Syringe) 3 ml IVFLUSH QSHIFT [facility] Last Admin: 06/14/22 08:36 Dose: 3 ml Documented By: JEEVAN Labs 06/14/22 06:10 06/14/22 06:10 Labs: Laboratory Results - last 24 hr 06/13/22 06/13/22 06/13/22 05:55 11:08 11:08 MCV 98.4 H MCH 30.9 MCHC 31.4 RDW 15.2 Plt Count 259 MPV 10.8 Absolute Nucleated RBC 0.020 H Nucleated RBC % (auto) 0.2 O2 Saturation ABG pH at Pt Temp ABG pCO2 at Pt Temp ABG pO2 at Pt Temp ABG HCO3 ABG Base Excess (Actual) Anion Gap 17 Estim Creat Clear Calc 30.2 Estimated GFR 24 POC Glucose Random Glucose 133 H Calcium 8.3 L Ammonia 29 C-Reactive Protein 21.47 H Procalcitonin 0.32 06/13/22 06/13/22 06/13/22 11:25 11:35 15:42 MCV MCH MCHC RDW Plt Count MPV Absolute Nucleated RBC Nucleated RBC % (auto) O2 Saturation 95.0 ABG pH at Pt Temp 7.35 ABG pCO2 at Pt Temp 38 ABG pO2 at Pt Temp 77 L ABG HCO3 21 L ABG Base Excess (Actual) -3.5 Anion Gap Estim Creat Clear Calc Estimated GFR POC Glucose 136 H 129 H Random Glucose Calcium Ammonia C-Reactive Protein Procalcitonin 06/13/22 06/14/22 06/14/22 20:18 06:10 06:10 MCV 97.8 MCH 30.0 MCHC 30.6 L RDW 15.2 Plt Count 293 MPV 10.7 Absolute Nucleated RBC 0.020 H Nucleated RBC % (auto) 0.1 O2 Saturation ABG pH at Pt Temp ABG pCO2 at Pt Temp ABG pO2 at Pt Temp ABG HCO3 ABG Base Excess (Actual) Anion Gap 17 Estim Creat Clear Calc 36.3 Estimated GFR 30 POC Glucose 160 H Random Glucose 135 H Calcium 8.7 Ammonia C-Reactive Protein Procalcitonin 06/14/22 07:39 MCV MCH MCHC RDW Plt Count MPV Absolute Nucleated RBC Nucleated RBC % (auto) O2 Saturation ABG pH at Pt Temp ABG pCO2 at Pt Temp ABG pO2 at Pt Temp ABG HCO3 ABG Base Excess (Actual) Anion Gap Estim Creat Clear Calc Estimated GFR POC Glucose 137 H Random Glucose Calcium Ammonia C-Reactive Protein Procalcitonin Microbiology Microbiology Results: Microbiology 06/09/22 19:05 Urine Culture - Final Urine clean catch - Urine [place] top Jennifer parapsilosis Assessment and Plan (1) Acute metabolic encephalopathy: Status: Acute (2) Hyperkalemia: Status: Acute Plan hospital d#6 76yo F with HTN, HLD, DM2, CAD, pAF on apixaban, chronic BLE weakness [uses motorized chair], anxiety, depression, chronic pain syndrome, CKD with bilateral hydroureteronephrosis admitted for acute metabolic encephalopathy, LETHA # acute toxic/metabolic encephalopathy - treating empiricaly for PNA with ceftriaxone + doxycycline #2 but suspect polypharmacy so d/c'ed quetiapine + gabapentin as she is on quite high doses # LETHA/CKD3 - SCr improved with Solis, likely obstructive uropathy, Nephrology following, Urology consult pending- will need to be d/c'ed with Susieadelita in place - hold lisinopril-HCTZ # hyperK due to LETHA - K 7.2 on arrival, now 4.8, d/c'ed [facility] # metabolic acidosis - continue bicarbonate supplementation # DM2 - continue correction-dose lispro # HTN - cotinue amlodipine + metoprolol - hold lisinopril-HCTZ as above # CAD - continue metoprolol + statin + ezetimibe # paroxysmal AF - continue apixaban + metoprolol # mood disorder - continue fluoxetine + duloxetine, d/c'ed quetiapine as above # chronic pain - d/c'ed gabapentin as above # chest wall pain - troponin + EKG unremarkable # VTE ppx: apixaban # dispo: TBD In my clinical judgment, the patient requires continued inpatient hospitalization for the following reasons: encephalopathy, LETHA Time Spent With Patient Time: Total time managing care of this patient today _40___ minutes. Quality Stroke Does the patient have a stroke diagnosis?: No VTE Prior VTE?: No VTE Risk Level:: Medical - moderate - high VTE Device Contraindication: Treatment Not Indicated VTE Drug Contraindication: N/A - Med Ordered
[2022-06-14] MEDS: Nystatin Powder 15 GM BOTTLE 1 APPL TOPICAL ×2 (11:52→21:35)
[2022-06-14] MEDS: cefTRIAXone sodium 1 GM in 0.9 % Sodium Chloride 50 ML IV (14:53)
[2022-06-14 15:48] LABS: Glucose, Whole Blood 133 mg/dL (60-115)
[2022-06-14 20:08] LABS: Glucose, Whole Blood 154 mg/dL (60-115)
[2022-06-14] MEDS: Atorvastatin Calcium 80 MG TABLET PO (21:33)
[2022-06-14] MEDS: Insulin Lispro 100 UNIT/ML 3 ML VIAL SUBCUT (21:35)
[2022-06-15] VITALS (11 sets, daily range): BP systolic 135–170; BP diastolic 78–96; PULSE 89–124; RESP 16–20; TEMP 36.4–37; O2SAT 92–98
[2022-06-15] MEDS: Haloperidol Lactate 5 MG/ML VIAL IM (01:13)
[2022-06-15] MEDS: 0.9 % Sodium Chloride Flush 3 ML SYRINGE IVFLUSH ×4 (01:14→20:55)
[2022-06-15 04:18] LABS: Glucose, Whole Blood 146 mg/dL (60-115)
[2022-06-15 04:33] LABS: ABG Base Excess -3.5 mmol/L; ABG HCO3 22 mmol/L (22-26); ABG pCO2 46 mmHg (32-45); ABG pH 7.29 (7.35-7.45); ABG pO2 81 mmHg (83-108)
--- NOTE | 2022-06-15 04:37 | P.EN_ITS ---
Event Note Date of Service: 06/15/22 Event Note: rapid response was called on this patient around 04:00 for a brief episode of unresponsiveness. Appears the patient was on the phone with her daughter when all of a sudden she loss consciousness. Patient is somnolent but arousable, she is Togolese-speaking, but we were able to use Togolese-speaking staff member to communicate with her, she response to verbal stimuli, denies any chest pain, no shortness of breath, no abdominal pain nausea or vomiting, no headache or change in vision, she has no weakness numbness or tingling. At this time will obtain chest x-ray, VBG, ABG, CMP, CBC, lactic acid. Vitals otherwise show a heart rate of 120 in AFib with RVR, blood pressure 160/80, pending temperature checked. will obtain head CT to rule out stroke. Of note patient did receive Haldol earlier in the night around 01:00 for agitation and delirium. Patient was pulling on her wires, Destructive, and therefore Haldol was given 3 hours prior to the episode. according to the nurse the hospital did not change her behavior, she continued to have agitation Until the episode of unresponsiveness.. Time Spent With Patient Time: Total time managing care of this patient today ____ minutes.
[2022-06-15 04:45] LABS: Hematocrit 31.4 % (37.0-47.0); Hemoglobin 9.7 g/dl (12.0-16.0); Mean Corpuscular HGB Conc 30.9 g/dl (31.0-35.0); Mean Corpuscular Volume 97.2 fL (80.0-98.0); Mean Platelet Volume 10.4 fL (9.4-12.3); NRBC Pct Auto 0.2 /100WBC (0.0-0.2); Platelet Count 311 X10*3/uL (160-400); Red Blood Count 3.23 X10*6/uL (4.20-5.50); Red Cell Distribution Width 15.5 % (11.0-16.0); White Blood Count 13.5 X10*3/uL (4.8-10.8)
[2022-06-15 04:47] LABS: VBG Base Excess -4.1 mmol/L; VBG HCO3 21 mmol/L (22-26); VBG pCO2 39 mmHg; VBG pH 7.33 (7.32-7.43); VBG pO2 65 mmHg
[2022-06-15 04:47] LABS: Venous Blood Gas Refer to POC result
--- NOTE | 2022-06-15 04:52 | PM.EVENT ---
Event Note Date of Service: 06/15/22 Event Note: ABG shows a pH of 7.29 with a CO2 of 47. No documented history of COPD in EMR, spoke to daughter over the phone, denies mother having any history of COPD will place on BiPAP 10 per early until morning time, will repeat VBG patient afebrile, labs shows sodium of 149, bicarb of 20, creatinine of 1.64 which is around her baseline, normal lactic acid head CT is negative chest x-ray shows possible edema Pt refusing to wear bipap. more awake, alert, more agitated, yelling and screaming. maintaining her O2 will rpt VBG in 1 hr at this time will treat with lasix, and obtian BNP Time Spent With Patient Time: Total time managing care of this patient today ____ minutes.
[2022-06-15 04:59] LABS: Lactic Acid 1.1 mmol/L (0.5-2.0)
[2022-06-15 05:09] LABS: Troponin-I High Sensitivity 13.3 ng/L (<3.5-17.0)
[2022-06-15 05:16] LABS: Alanine Aminotransferase 10 U/L (0-31); Albumin Level 3.9 g/dL (3.5-5.0); Alkaline Phosphatase 112 U/L (39-117); Anion Gap 18 (12-20); Aspartate Amino Transferase 11 U/L (5-31); Bilirubin Direct 0.4 mg/dL (0.0-0.5); Bilirubin Total 1.1 mg/dL (0.0-1.0); Blood Urea Nitrogen 37 mg/dL (9-16); Calcium 8.7 mg/dL (8.4-10.2); Carbon Dioxide 20 mmol/L (22-29); Chloride 116 mmol/L (96-108); Estimated Glomerular Filt Rate 31; Glucose Random 158 mg/dL (60-115); Potassium 4.5 mmol/L (3.3-5.1); Sodium 149 mmol/L (135-145); Total Protein 7.3 g/dL (6.5-8.0)
[2022-06-15 05:30] LABS: Procalcitonin 0.28 ng/mL
[2022-06-15] MEDS: Doxycycline Hyclate 100 MG in 0.9 % Sodium Chloride 250 ML 166.67 MG IV ×2 (05:39→16:06)
--- NOTE | 2022-06-15 07:00 | CA_ITS ---
Transthoracic Echocardiogram Patient (Last, First, Middle): Shweta Woodard, Gender: Female Date of : 1945 Age: 76 Procedure Date: 06/15/2022 Procedure Type: Transthoracic Echocardiogram [place] [facility] [place]: 157.48 cm Weight: 119.3 kg BSA: 2.15 m2 Heart Rate: bpm BP: 154 / 96 mmHg Ventilating Equipment Installer: Referring MD: Chase Barry MD [employer] Developer: Abram Mohr MD Symptoms: AF + CHF Study Quality: Technically Difficult ECG Rhythm: Atrial Fibrillation Conclusions: - 1. Normal LV systolic function with LVEF of 60 65% 2. Normal cardiac valvular Dopplers 3. Mildly elevated at worker systolic pressure 4. No gross pericardial effusion Findings Left Ventricle The left ventricle was not well visualized. There is mildly increased left ventricular wall thickness. The visually estimated ejection fraction is between 60-65%. There is no evidence of regional wall motion abnormalities. Diastolic function is indeterminate on the basis of available data. Right Ventricle The right ventricle was not well visualized. Atria The left atrium is normal in size. Interatrial shunt cannot be excluded. The right atrium was not well visualized. Aortic Valve The aortic valve was not well visualized. There is no aortic valve stenosis. There is no aortic valve regurgitation. Mitral Valve The mitral valve was not well visualized. There is mild mitral valve regurgitation. There is no mitral valve stenosis. Pulmonic Valve The pulmonic valve was not well visualized. Tricuspid Valve The tricuspid valve was not well visualized. There is trace tricuspid valve regurgitation. Normal right atrial pressure. Mild pulmonary hypertension is present. Great Vessels The aorta was not well visualized. The pulmonary artery was not well visualized. Venous The inferior vena cava is normal in size and collapses greater than 50% with inspiration. Pericardium/Pleural The pericardium was not well visualized. Measurements 2D Linear Measurements IVSd: 1.22 0.6-0.9/0.6-1.0 cm LVIDd: 4.17 3.9-5.3/4.2-5.9 cm LVIDd Index: 1.94 2.4-3.2/2.2-3.1 cm/m2 LVIDs: 2.72 2.0-3.6 cm LVPWd: 1.34 0.7-1.1 cm Ao Root: 3.30 2.1-3.5 cm LA Diam: 3.80 2.7-3.8/3.0-4.0 cm LAIDs Index: 1.77 1.5-2.3 cm/m2 LV Mass: 241.60 67-162/88-224 g LV Mass Index: 112.37 43-95/49-115 g/m2 LVOT Diam: 2.10 3.0+(-)1.3 cm Mitral Valve MV Pk E: 1.12 MV Decel Time: 247.00 E'Lateral: 10.30 E'Medial: 7.94 E/E' Med: 14.10 E/E' Lat: 10.90 PHT: 72.00 MVA PHT: 3.06 Decel [place]: 4.52 Aortic Valve AoV Pk Davey: 1.69 AoV Mn Davey: 1.12 AoV VTI: 0.32 AoV Pk Grad: 11.00 Aov Mn Grad: 6.00 WILLIE Cont.VTI: 1.82 LVOT LVOT Pk Davey: 0.87 LVOT Mn Davey: 0.54 LVOT VTI: 0.17 LVOT Pk Grad: 3.00 LVOT Mn Grad: 1.00 LVOT Diam: 2.10 LVOT Area: 3.46 Diastolic Function MV Pk E: 1.12 E'Medial: 7.94 E/E' Med: 14.10 E' Laterial: 10.30 E/E' Lat: 10.90 Right Ventricle TAPSE (mm): 20.00 TVS' Davey: 10.00 Tricuspid Valve TR Pk Davey: 3.17 TR Pk Grad: 40.00 RA Press: 3.00 RVSP: 43.00 Great Vessels Aorta Ao Root-2D: 3.30 2.0-3.7 cm Ao Asc: 3.80 2.1-3.4 cm Pulmonary Valve PV Pk Davey: 0.81 Peak PV Grad: 3.00 Updated in Other Vendor System with Status of Final Abram Mohr MD electronically signed on 06/15/2022 1:43:35 PM with status of Final
[2022-06-15 07:08] LABS: B Type Natriuretic Peptide 632 pg/mL (<100)
[2022-06-15 07:27] LABS: Glucose, Whole Blood 144 mg/dL (60-115)
--- NOTE | 2022-06-15 07:57 | PC.NURSE ---
Pt was showing increased agitation and hallucinations throughout the night. Contacted MD who ordered Haldol but to little effect. Around 04:00am PT was on the phone with her daughter when all of a sudden she lost consciousness. PT was unresponsive to verbal and physical stimuli so a rapid response was called. Patient was given O2 and became awake and began responding with the help of a [place] speaking staff. Several Tests were ordered for pt per MD. Pt once aware continued to show severe agitation. MD aware and will continue to monitor.
[2022-06-15] MEDS: amLODIPine Besylate 5 MG TABLET PO (08:34)
[2022-06-15] MEDS: Sodium Bicarbonate 650 MG TABLET PO ×2 (08:34→20:19)
[2022-06-15] MEDS: Furosemide 40 MG/4 ML VIAL IVPUSH ×2 (08:34→17:10)
[2022-06-15] MEDS: Metoprolol Tartrate 25 MG TABLET PO ×2 (08:34→20:19)
[2022-06-15] MEDS: Ferrous Sulfate 324 MG TABLET.DR PO (08:35)
[2022-06-15] MEDS: FLUoxetine HCl 20 MG CAPSULE PO (08:35)
[2022-06-15] MEDS: Ezetimibe 10 MG TABLET PO (08:35)
[2022-06-15] MEDS: Apixaban 5 MG TABLET PO ×2 (08:35→20:19)
[2022-06-15] MEDS: Nystatin Powder 15 GM BOTTLE 1 APPL TOPICAL ×3 (09:13→20:19)
--- NOTE | 2022-06-15 10:19 | P.PNNP_ITS ---
Subjective Subjective Date of Service: 06/25/22 Interval history: Events noted. Serum sodium continues to increase. Remains confused Physical Exam Vital Signs: Vital Signs: Last Vital Signs Temp 97.9 F 06/15/22 07:13 Pulse 120 H 06/15/22 07:13 Resp 17 06/15/22 07:13 BP 154/96 H 06/15/22 07:13 Pulse Ox 97 06/15/22 07:13 O2 Del Method Oxymask 06/15/22 07:13 O2 Flow Rate 15 06/15/22 07:13 BMI result Body Mass Index 48.2 Const: Other: General awake alert x3,no acute distress.? Neck? no JVD. CVS? regular rate rhythm, Respiratory lungs clear to auscultation, no respiratory distress, no wheeze, no rhonchi. Gastrointestinal abdomen soft, obese, nontender, bowel sounds audible Extremities no? edema Back no CVA tenderness Neuro nonfocal, speech clear Psych appropriate affect Solis catheter with cloudy urine Objective Data Labs 06/15/22 04:38 06/15/22 04:38 Labs: Laboratory Results - last 24 hr 06/14/22 06/14/22 06/14/22 11:06 15:39 19:48 WBC RBC Hgb Hct MCV MCH MCHC RDW Plt Count MPV Absolute Nucleated RBC Nucleated RBC % (auto) O2 Saturation ABG pH at Pt Temp ABG pCO2 at Pt Temp ABG pO2 at Pt Temp ABG HCO3 ABG Base Excess (Actual) VBG pH VBG pCO2 VBG pO2 VBG HCO3 VBG O2 Saturation VBG Base Excess Sodium Potassium Chloride Carbon Dioxide Anion Gap BUN Creatinine Estim Creat Clear Calc Estimated GFR POC Glucose 133 H 133 H 154 H Random Glucose Lactic Acid Calcium Total Bilirubin Direct Bilirubin AST ALT Alkaline Phosphatase Troponin I High Sens B-Natriuretic Peptide Total Protein Albumin Procalcitonin 06/15/22 06/15/22 06/15/22 04:13 04:23 04:38 WBC Cancelled RBC Cancelled Hgb Cancelled Hct Cancelled MCV Cancelled MCH Cancelled MCHC Cancelled RDW Cancelled Plt Count Cancelled MPV Cancelled Absolute Nucleated RBC Cancelled Nucleated RBC % (auto) Cancelled O2 Saturation 94.0 ABG pH at Pt Temp 7.29 L ABG pCO2 at Pt Temp 46 H ABG pO2 at Pt Temp 81 L ABG HCO3 22 ABG Base Excess (Actual) -3.5 VBG pH VBG pCO2 VBG pO2 VBG HCO3 VBG O2 Saturation VBG Base Excess Sodium Potassium Chloride Carbon Dioxide Anion Gap BUN Creatinine Estim Creat Clear Calc Estimated GFR POC Glucose 146 H Random Glucose Lactic Acid Calcium Total Bilirubin Direct Bilirubin AST ALT Alkaline Phosphatase Troponin I High Sens B-Natriuretic Peptide Total Protein Albumin Procalcitonin 06/15/22 06/15/22 06/15/22 04:38 04:38 04:38 WBC 13.5 H RBC 3.23 L Hgb 9.7 L Hct 31.4 L MCV 97.2 MCH 30.0 MCHC 30.9 L RDW 15.5 Plt Count 311 MPV 10.4 Absolute Nucleated RBC 0.030 H Nucleated RBC % (auto) 0.2 O2 Saturation ABG pH at Pt Temp ABG pCO2 at Pt Temp ABG pO2 at Pt Temp ABG HCO3 ABG Base Excess (Actual) VBG pH VBG pCO2 VBG pO2 VBG HCO3 VBG O2 Saturation VBG Base Excess Sodium 149 H Cancelled Potassium 4.5 Cancelled Chloride 116 H Cancelled Carbon Dioxide 20 L Cancelled Anion Gap 18 Cancelled BUN 37 H Cancelled Creatinine 1.64 H Cancelled Estim Creat Clear Calc 37.0 Cancelled Estimated GFR 31 Cancelled POC Glucose Random Glucose 158 H Cancelled Lactic Acid Calcium 8.7 Cancelled Total Bilirubin 1.1 H Direct Bilirubin 0.4 AST 11 ALT 10 Alkaline Phosphatase 112 Troponin I High Sens B-Natriuretic Peptide Total Protein 7.3 Albumin 3.9 Procalcitonin 0.28 06/15/22 06/15/22 06/15/22 04:38 04:38 04:38 WBC RBC Hgb Hct MCV MCH MCHC RDW Plt Count MPV Absolute Nucleated RBC Nucleated RBC % (auto) O2 Saturation ABG pH at Pt Temp ABG pCO2 at Pt Temp ABG pO2 at Pt Temp ABG HCO3 ABG Base Excess (Actual) VBG pH VBG pCO2 VBG pO2 VBG HCO3 VBG O2 Saturation VBG Base Excess Sodium Potassium Chloride Carbon Dioxide Anion Gap BUN Creatinine Estim Creat Clear Calc Estimated GFR POC Glucose Random Glucose Lactic Acid 1.1 Calcium Total Bilirubin Direct Bilirubin AST ALT Alkaline Phosphatase Troponin I High Sens 13.3 D B-Natriuretic Peptide 632 H Total Protein Albumin Procalcitonin 06/15/22 06/15/22 04:40 07:09 WBC RBC Hgb Hct MCV MCH MCHC RDW Plt Count MPV Absolute Nucleated RBC Nucleated RBC % (auto) O2 Saturation ABG pH at Pt Temp ABG pCO2 at Pt Temp ABG pO2 at Pt Temp ABG HCO3 ABG Base Excess (Actual) VBG pH 7.33 VBG pCO2 39 VBG pO2 65 VBG HCO3 21 L VBG O2 Saturation 90.0 VBG Base Excess -4.1 Sodium Potassium Chloride Carbon Dioxide Anion Gap BUN Creatinine Estim Creat Clear Calc Estimated GFR POC Glucose 144 H Random Glucose Lactic Acid Calcium Total Bilirubin Direct Bilirubin AST ALT Alkaline Phosphatase Troponin I High Sens B-Natriuretic Peptide Total Protein Albumin Procalcitonin Microbiology Microbiology Results: Microbiology 06/09/22 16:18 Blood - Venous Blood Culture - Final No growth after 5 days. 06/09/22 16:06 Blood - Venous Blood Culture - Final No growth after 5 days. 06/09/22 19:05 Urine clean catch - Urine medina top Urine Culture - Final Jennifer parapsilosis Procedures Date of Service Date of Service: 06/15/22 Assessment & Plan Assessment and plan (1) LETHA (acute kidney injury): Status: Acute Plan Acute kidney injury superimposed on chronic kidney disease with severe hype rkalemia primarily due to obstructive uropathy/urinary retention. She could have superimposed tubular injury. No reason to believe she has any active glomerulonephritis at this time. Obstructive uropathy. Anemia without thrombocytopenia. Hyperchloremic metabolic acidosis. Hypernatremia due to free water deficit. Probably worsened by use of loop diuretic. Recommendations DC Lasix and add hydrochlorothiazide 25 mg to correct hyponatremia. Increased hypotonic fluid intake /free water Keep Solis catheter. Urology consultation. Watch K keep intake more than the output. sodium bicarbonate to correct acidosis. Continued to avoid nephrotoxic agents. Follow renal function closely. . We will follow her along upon DC Time Spent With Patient Time: Total time managing care of this patient today ____ minutes. Progress Note: Quality Stroke Does the patient have a stroke diagnosis?: No
--- NOTE | 2022-06-15 10:30 | MHC.CM.PN ---
Per ROUNDS discussion, Patient was a Rapid Response last night and is not yet medically cleared for dc. Home/resume services is the goal and CM will continue to follow.
--- NOTE | 2022-06-15 10:31 | P.CNUR_ITS ---
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 Neurogenic bladder Does not empty Presented with acute kidney injury secondary to retention Has resolved Solis catheter Prior discussion has been had earlier this year with family and patient regarding clean intermittent catheterization Family did not considered a good candidate to learn clean intermittent catheterization Would discharge with Solis catheter Can review as outpatient Review of Systems Constitutional: Constitutional: Reports as per HPI and Reports no additional constitutional complaints Cardiovascular: Cardiovascular: Reports as per HPI and Reports no additional cardiovascular complaints Respiratory: Respiratory: Reports as per HPI and Reports no additional respiratory complaints Gastrointestinal: Gastrointestinal: Reports as per HPI and Reports no additional gastrointestinal complaints Genitourinary: Genitourinary: Reports as per HPI Musculoskeletal: Musculoskeletal: Reports no additional musculoskeletal complaints and Reports as per HPI Neurologic: Reports system reviewed and no additional complaints, except as documented and Reports as per HPI [facility] Past Medical History Medical History (Updated 06/09/22 @ 20:52 by DILIP Neri) LETHA (acute kidney injury) Anxiety and depression Arthritis Asthma Atrial flutter CAD (coronary artery disease) Chronic kidney disease, stage 3 Chronic pain CKD (chronic kidney disease) stage 4, GFR 15-29 ml/min Diabetes mellitus High cholesterol History of myocardial infarction HTN (hypertension) Hyperglycemia Lateral malleolar fracture Limited mobility Multiple falls Myocardial infarction On anticoagulant therapy On beta lanette at home Paroxysmal atrial fibrillation Type 2 diabetes mellitus with unspecified complications Urgency incontinence Family History Family History Father No problems noted. Mother Diabetes High blood pressure Stomach cancer Surgical History Surgical History H/O neck surgery History of cataract extraction History of cystoscopy History of heart artery stent Hx of cholecystectomy Hx of colonoscopy Social History Social History Household Members: None Housing: Apartment Are you a primary critical care clinical nurse specialist to a significant other at home: No Unable to assess alcohol history related to: Unable to respond and Unknown Alcohol intake: never Patient Tobacco Use Status: Former Tobacco user Quit Date: 2005 Tobacco use type: Cigarette Years Smoked: 30-40 years Second Hand Smoke Exposure: No Substance Use Type: Crack/Cocaine service: No Current occupational status: disabled Meds Allergies Allergy/AdvReac Type Severity Reaction Status Date / Time atorvastatin [ATORVASTATIN] Allergy Intermediate SWELLING Verified 05/23/22 14:53 morphine [MORPHINE] Allergy Intermediate RASH Verified 05/23/22 14:53 zolpidem [From AMBIEN] AdvReac Intermediate SLEEP WALKS Verified 05/23/22 14:53 Active Medications: Current Medications Acetaminophen (Acetaminophen 325 Mg Tablet) 650 mg PO Q6H PRN PRN Reason: Pain, Mild (Pain Scale 1-3) Last Admin: 06/10/22 18:27 Dose: 650 mg Albuterol Sulfate (Albuterol Sulfate 90 Mcg 8 Gm Inhaler) 2 puff INHALE QID PRN PRN Reason: Respiratory Distress Last Admin: 06/12/22 16:49 Dose: 2 puff Albuterol/Ipratropium (Albuterol/Iprat 2.5/0.5mg 3 Ml Ampul.Neb) 3 ml INHALE RQ4H PRN PRN Reason: Wheezing Albuterol/Ipratropium (Albuterol/Iprat 2.5/0.5mg 3 Ml Ampul.Neb) 3 ml INHALE RQ4H WHILE AWAKE [facility] Last Admin: 06/15/22 07:53 Dose: Not Given Amlodipine Besylate (Amlodipine Besylate 5 Mg Tablet) 5 mg PO DAILY [facility]; Protocol Last Admin: 06/15/22 08:34 Dose: 5 mg Apixaban (Apixaban 5 Mg Tablet) 5 mg PO BID [facility] Last Admin: 06/15/22 08:35 Dose: 5 mg Atorvastatin Calcium (Atorvastatin Calcium 80 Mg Tablet) 80 mg PO BEDTIME [facility] Last Admin: 06/14/22 21:33 Dose: 80 mg Docusate Sodium (Docusate Sodium 100 Mg Capsule) 100 mg PO DAILY PRN PRN Reason: Constipation Ezetimibe (Ezetimibe 10 Mg Tablet) 10 mg PO DAILY [facility] Last Admin: 06/15/22 08:35 Dose: 10 mg Ferrous Sulfate (Ferrous Sulfate 324 Mg Tablet.) 324 mg PO DAILY [facility] Last Admin: 06/15/22 08:35 Dose: 324 mg Fluoxetine HCl (Fluoxetine Hcl 20 Mg Capsule) 20 mg PO DAILY [facility] Last Admin: 06/15/22 08:35 Dose: 20 mg Furosemide (Furosemide 40 Mg/4 Ml Vial) 40 mg IVPUSH BID@0900,1800 [facility]; Protocol Last Admin: 06/15/22 08:34 Dose: 40 mg Glucose (Glucose Gel 15 Gm Gel..Gram.) 15 gm PO Q15M PRN; Protocol PRN Reason: per Hypoglycemia Standing Ord. Dextrose (D10) 250 mls @ 750 mls/hr IV Q15M PRN; Protocol PRN Reason: per Hypoglycemia Standing Ord. Ceftriaxone Sodium 1 gm/ (Sodium Chloride) 50 mls @ 100 mls/hr IV Q24H [facility] Last Infusion: 06/14/22 16:09 Dose: Infused Doxycycline Hyclate 100 mg/ (Sodium Chloride) 250 mls @ 166.67 mls/hr IV Q12H [facility] Last Infusion: 06/15/22 07:54 Dose: Infused Insulin Human Lispro (Insulin Lispro 100 Unit/Ml 3 Ml Vial) 0 unit SUBCUT QIDACHS [facility]; Protocol Last Admin: 06/15/22 08:16 Dose: Not Given Metoprolol Tartrate (Metoprolol Tartrate 25 Mg Tablet) 25 mg PO BID [facility]; Protocol Last Admin: 06/15/22 08:34 Dose: 25 mg Nystatin (Nystatin Powder 15 Gm Bottle) 1 appl TOPICAL TID [facility]; Protocol Last Admin: 06/15/22 09:13 Dose: 1 appl Ondansetron HCl (Ondansetron Hcl 4 Mg/2 Ml Vial) 4 mg IVPUSH Q8H PRN PRN Reason: Nausea and Vomiting Pharmacy Consult (Consult Rx Perform Med Rec) 1 each MISCELLANE ONCE PRN PRN Reason: Consult order Sodium Bicarbonate (Sodium Bicarbonate 650 Mg Tablet) 650 mg PO BID [facility] Last Admin: 06/15/22 08:34 Dose: 650 mg Sodium Chloride (0.9 % Sodium Chloride Flush 3 Ml Syringe) 3 ml IVFLUSH QSHIFT [facility] Last Admin: 06/15/22 08:35 Dose: 3 ml Home Medications Medication Instructions Recorded Confirmed Last Taken Type lancing device with lancets kit #1 ea 03/24/21 03/13/22 Unknown History (Evolve IP DelCourseHorse Lancing Device kit) metoprolol tartrate 25 mg tablet 25 mg PO BID 07/15/21 06/09/22 11/03/21 08:15 History quetiapine 300 mg tablet 300 mg PO BEDTIME PRN Insomnia 07/15/21 06/09/22 10/11/21 History albuterol sulfate 90 mcg/actuation 2 puff inhalation QID PRN 11/30/21 06/09/22 Unknown History aerosol inhaler Respiratory Distress duloxetine 30 mg capsule,delayed 30 mg PO DAILY 11/30/21 06/09/22 Unknown History release ferrous sulfate 325 mg (65 mg 325 mg PO DAILY 11/30/21 06/09/22 Unknown History iron) tablet fluoxetine 20 mg capsule 20 mg PO DAILY 11/30/21 06/09/22 Unknown History ezetimibe 10 mg tablet 10 mg PO DAILY 06/09/22 06/09/22 Unknown History gabapentin 600 mg tablet 600 mg PO TID 06/09/22 06/09/22 Unknown History insulin lispro 100 unit/mL 6 unit subcut TID 06/09/22 06/09/22 Unknown History subcutaneous pen (Humalog KwikPen (U-100) Insulin) lisinopril 20 1 tab PO DAILY 06/09/22 06/09/22 Unknown History mg-hydrochlorothiazide 25 mg tablet quetiapine 200 mg tablet 200 mg PO BEDTIME 06/09/22 06/09/22 Unknown History rosuvastatin 20 mg tablet 20 mg PO BEDTIME 06/09/22 06/09/22 Unknown History Physical Exam Vital Signs: Vital Signs: Last Vital Signs Temp 97.9 F 06/15/22 07:13 Pulse 120 H 06/15/22 07:13 Resp 17 06/15/22 07:13 BP 154/96 H 06/15/22 07:13 Pulse Ox 97 06/15/22 07:13 O2 Del Method Oxymask 06/15/22 07:13 O2 Flow Rate 15 06/15/22 07:13 BMI result Body Mass Index 48.2 Const: General: cooperative, healthy appearing, comfortable and no acute distress Orientation/consciousness: patient oriented x3 HEENT: Face and sinus: Yes normal facial exam Mouth: moist mucous membranes Neck: Neck: Yes normal visual inspection, Yes full ROM and Yes trachea midline Chest: Chest palpation & inspection: normal inspection of the chest Resp: Effort & Inspection: normal respiratory effort, able to speak in complete sentences and no respiratory distress GI: Inspection: Yes normal to inspection Back/Spine/Pelvis: Cervical Spine: normal cervical lordosis Thoracic/Lumbar Spine: thoracic and lumbar spine normal to inspection Skin: General skin exam: no rashes or lesions noted Neuro: General: patient oriented x3, tone normal and moves all extremities Extrem: General: Yes normal to inspection and Yes capillary refill normal Results Labs 06/15/22 04:38 06/15/22 04:38 Labs: Abnormal lab results 06/14/22 06/14/22 06/14/22 Range/Units 11:06 15:39 19:48 WBC (4.8-10.8) X10*3/uL RBC (4.20-5.50) X10*6/uL Hgb (12.0-16.0) g/dl Hct (37.0-47.0) % MCHC (31.0-35.0) g/dl Absolute Nucleated RBC (0.0-0.012) X10*3/uL ABG pH at Pt Temp (7.35-7.45) ABG pCO2 at Pt Temp (32-45) mmHg ABG pO2 at Pt Temp (83-108) mmHg VBG HCO3 (22-26) mmol/L Sodium (135-145) mmol/L Chloride (96-108) mmol/L Carbon Dioxide (22-29) mmol/L BUN (9-16) mg/dL Creatinine (0.5-1.4) mg/dL POC Glucose 133 H 133 H 154 H (60-115) mg/dL Random Glucose (60-115) mg/dL Total Bilirubin (0.0-1.0) mg/dL B-Natriuretic Peptide (<100) pg/mL 06/15/22 06/15/22 06/15/22 Range/Units 04:13 04:23 04:38 WBC (4.8-10.8) X10*3/uL RBC (4.20-5.50) X10*6/uL Hgb (12.0-16.0) g/dl Hct (37.0-47.0) % MCHC (31.0-35.0) g/dl Absolute Nucleated RBC (0.0-0.012) X10*3/uL ABG pH at Pt Temp 7.29 L (7.35-7.45) ABG pCO2 at Pt Temp 46 H (32-45) mmHg ABG pO2 at Pt Temp 81 L (83-108) mmHg VBG HCO3 (22-26) mmol/L Sodium 149 H (135-145) mmol/L Chloride 116 H (96-108) mmol/L Carbon Dioxide 20 L (22-29) mmol/L BUN 37 H (9-16) mg/dL Creatinine 1.64 H (0.5-1.4) mg/dL POC Glucose 146 H (60-115) mg/dL Random Glucose 158 H (60-115) mg/dL Total Bilirubin 1.1 H (0.0-1.0) mg/dL B-Natriuretic Peptide (<100) pg/mL 06/15/22 06/15/22 06/15/22 Range/Units 04:38 04:38 04:40 WBC 13.5 H (4.8-10.8) X10*3/uL RBC 3.23 L (4.20-5.50) X10*6/uL Hgb 9.7 L (12.0-16.0) g/dl Hct 31.4 L (37.0-47.0) % MCHC 30.9 L (31.0-35.0) g/dl Absolute Nucleated RBC 0.030 H (0.0-0.012) X10*3/uL ABG pH at Pt Temp (7.35-7.45) ABG pCO2 at Pt Temp (32-45) mmHg ABG pO2 at Pt Temp (83-108) mmHg VBG HCO3 21 L (22-26) mmol/L Sodium (135-145) mmol/L Chloride (96-108) mmol/L Carbon Dioxide (22-29) mmol/L BUN (9-16) mg/dL Creatinine (0.5-1.4) mg/dL POC Glucose (60-115) mg/dL Random Glucose (60-115) mg/dL Total Bilirubin (0.0-1.0) mg/dL B-Natriuretic Peptide 632 H (<100) pg/mL 06/15/22 Range/Units 07:09 WBC (4.8-10.8) X10*3/uL RBC (4.20-5.50) X10*6/uL Hgb (12.0-16.0) g/dl Hct (37.0-47.0) % MCHC (31.0-35.0) g/dl Absolute Nucleated RBC (0.0-0.012) X10*3/uL ABG pH at Pt Temp (7.35-7.45) ABG pCO2 at Pt Temp (32-45) mmHg ABG pO2 at Pt Temp (83-108) mmHg VBG HCO3 (22-26) mmol/L Sodium (135-145) mmol/L Chloride (96-108) mmol/L Carbon Dioxide (22-29) mmol/L BUN (9-16) mg/dL Creatinine (0.5-1.4) mg/dL POC Glucose 144 H (60-115) mg/dL Random Glucose (60-115) mg/dL Total Bilirubin (0.0-1.0) mg/dL B-Natriuretic Peptide (<100) pg/mL Short CBC 06/15/22 06/15/22 Range/Units 04:38 04:38 WBC Cancelled 13.5 H Hgb Cancelled 9.7 L Hct Cancelled 31.4 L Plt Count Cancelled 311 BMP 06/15/22 06/15/22 04:38 04:38 Sodium 149 H Cancelled Potassium 4.5 Cancelled Chloride 116 H Cancelled Carbon Dioxide 20 L Cancelled BUN 37 H Cancelled Creatinine 1.64 H Cancelled Calcium 8.7 Cancelled Liver Function 06/15/22 Range/Units 04:38 Total Bilirubin 1.1 H (0.0-1.0) mg/dL Direct Bilirubin 0.4 (0.0-0.5) mg/dL AST 11 (5-31) U/L ALT 10 (0-31) U/L Alkaline Phosphatase 112 (39-117) U/L Albumin 3.9 (3.5-5.0) g/dL Urine 06/09/22 Range/Units 18:32 Urine Color Yellow Urine Appearance Cloudy Urine pH 5.0 (5.0-9.0) Ur Specific [place] 1.015 (1.005-1.025) Urine Protein 30 (1+) H (Neg-Trace) mg/dL Urine Glucose (UA) Negative (Negative) mg/dL All other labs normal. Assessment and Plan (1) Urinary retention with incomplete bladder emptying: Status: Acute (2) Hydroureteronephrosis: Status: Acute Plan Inpatient management Solis catheter Will review as outpatient for decision regarding suprapubic tube placement Time Spent With Patient Time: Total time managing care of this patient today ____ minutes. Procedures Date of Service Date of Service: 06/15/22
[2022-06-15] MEDS: Albuterol/Iprat 2.5/0.5MG 3 ML AMPUL.NEB INHALE ×3 (11:11→18:55)
[2022-06-15] MEDS: Metoprolol Tartrate 5 MG/5 ML VIAL IVPUSH (11:25)
[2022-06-15 12:22] LABS: Glucose, Whole Blood 119 mg/dL (60-115)
[2022-06-15 15:09] LABS: Glucose, Whole Blood 137 mg/dL (60-115)
[2022-06-15] MEDS: cefTRIAXone sodium 1 GM in 0.9 % Sodium Chloride 50 ML IV (16:05)
[2022-06-15] MEDS: Atorvastatin Calcium 80 MG TABLET PO (20:18)
[2022-06-15 20:28] LABS: Glucose, Whole Blood 137 mg/dL (60-115)
[2022-06-16] VITALS (8 sets, daily range): BP systolic 132–189; BP diastolic 60–99; PULSE 102–143; RESP 17–22; TEMP 36.6–37.1; O2SAT 91–98
[2022-06-16] MEDS: Doxycycline Hyclate 100 MG in 0.9 % Sodium Chloride 250 ML 166.67 MG IV ×2 (03:56→17:33)
[2022-06-16] MEDS: Metoprolol Tartrate 5 MG/5 ML VIAL IVPUSH (04:33)
--- NOTE | 2022-06-16 04:48 | PC.NURSE ---
0433 pt's heart rate consistently in the 120'-130's. notified and 5mg IV metoprolol ordered.
[2022-06-16 07:02] LABS: Hematocrit 31.3 % (37.0-47.0); Hemoglobin 9.5 g/dl (12.0-16.0); Mean Corpuscular HGB Conc 30.4 g/dl (31.0-35.0); Mean Corpuscular Hemoglobin 29.4 pg (27.0-33.0); Mean Corpuscular Volume 96.9 fL (80.0-98.0); Mean Platelet Volume 10.7 fL (9.4-12.3); NRBC Pct Auto 0.2 /100WBC (0.0-0.2); Platelet Count 339 X10*3/uL (160-400); Red Blood Count 3.23 X10*6/uL (4.20-5.50); Red Cell Distribution Width 15.3 % (11.0-16.0); White Blood Count 13.8 X10*3/uL (4.8-10.8)
[2022-06-16 07:19] LABS: Anion Gap 14 (12-20); Blood Urea Nitrogen 38 mg/dL (9-16); Calcium 8.8 mg/dL (8.4-10.2); Carbon Dioxide 23 mmol/L (22-29); Chloride 116 mmol/L (96-108); Creatinine Clr Calc Pharmacy 35.4; Estimated Glomerular Filt Rate 29; Glucose Random 146 mg/dL (60-115); Magnesium 1.9 mg/dL (1.6-2.6); Potassium 3.8 mmol/L (3.3-5.1); Sodium 149 mmol/L (135-145)
[2022-06-16 07:26] LABS: B Type Natriuretic Peptide 596 pg/mL (<100)
[2022-06-16 07:40] LABS: Glucose, Whole Blood 137 mg/dL (60-115)
[2022-06-16 09:14] LABS: ABG Base Excess -1.9 mmol/L; ABG HCO3 22 mmol/L (22-26); ABG pCO2 38 mmHg (32-45); ABG pH 7.37 (7.35-7.45); ABG pO2 68 mmHg (83-108)
[2022-06-16] MEDS: OLANZapine 10 MG VIAL 5 MG IM ×2 (09:43→11:33)
--- NOTE | 2022-06-16 11:21 | HO.PM.IMPN ---
Subjective Subjective Date of Service: 06/15/22 Interval History: Late entry for progress note for 06/15/22 Pt received haloperidol at 0100 for agitation/delirium Pt had [employer] at 0400 for brief unresponsiveness while in the phone with her daughter was somnolent but arousable found to have AF/RVR in 120s placed briefly on BiPAP CXR with pulmonary edema, started furosedmie This AM, pt's mental status improved. Able to give her name, otherwise disoriented. Denies dyspnea but ROS limited by delirium. Review of Systems Review of Systems: Yes Unobtainable due to mental status Physical Exam Vital Signs: Vital Signs: Last Vital Signs Temp 98.5 F 06/16/22 08:00 Pulse 143 H 06/16/22 08:00 Resp 22 H 06/16/22 08:00 BP 189/88 H 06/16/22 08:00 Pulse Ox 92 06/16/22 08:00 O2 Del Method Nasal Cannula 06/16/22 08:00 O2 Flow Rate 4.5 06/16/22 08:00 BMI result Body Mass Index 48.2 Gen: in no acute distress HEENT: sclera anicteric, moist mucus membranes Neck: supple Lungs: diminished bilaterally Heart: rapid, irregular, no murmurs Abd: soft, non-tender, non-distended, morbid obesity : Solis with clear urine Ext: 1+ edema Skin: warm/well-perfused Neuro: alert, confused, oriented to self only Psych: impaired insight Objective Data Active Medications Acetaminophen (Acetaminophen 325 Mg Tablet) 650 mg PO Q6H PRN PRN Reason: Pain, Mild (Pain Scale 1-3) Last Admin: 06/10/22 18:27 Dose: 650 mg Documented By: JEEVAN Amlodipine Besylate (Amlodipine Besylate 5 Mg Tablet) 5 mg PO DAILY [facility]; Protocol Last Admin: 06/15/22 08:34 Dose: 5 mg Documented By: LISA Apixaban (Apixaban 5 Mg Tablet) 5 mg PO BID [facility] Last Admin: 06/15/22 20:19 Dose: 5 mg Documented By: CHARLY Atorvastatin Calcium (Atorvastatin Calcium 80 Mg Tablet) 80 mg PO BEDTIME [facility] Last Admin: 06/15/22 20:18 Dose: 80 mg Documented By: CHARLY Docusate Sodium (Docusate Sodium 100 Mg Capsule) 100 mg PO DAILY PRN PRN Reason: Constipation Ezetimibe (Ezetimibe 10 Mg Tablet) 10 mg PO DAILY [facility] Last Admin: 06/15/22 08:35 Dose: 10 mg Documented By: LISA Ferrous Sulfate (Ferrous Sulfate 324 Mg Tablet.Dr) 324 mg PO DAILY [facility] Last Admin: 06/15/22 08:35 Dose: 324 mg Documented By: LISA Fluoxetine HCl (Fluoxetine Hcl 20 Mg Capsule) 20 mg PO DAILY [facility] Last Admin: 06/15/22 08:35 Dose: 20 mg Documented By: LISA Furosemide (Furosemide 40 Mg/4 Ml Vial) 40 mg IVPUSH BID@0900,1800 [facility]; Protocol Last Admin: 06/15/22 17:10 Dose: 40 mg Documented By: SEGUNDO Glucose (Glucose Gel 15 Gm Gel..Gram.) 15 gm PO Q15M PRN; Protocol PRN Reason: per Hypoglycemia Standing Ord. Dextrose (D10) 250 mls @ 750 mls/hr IV Q15M PRN; Protocol PRN Reason: per Hypoglycemia Standing Ord. Ceftriaxone Sodium 1 gm/ (Sodium Chloride) 50 mls @ 100 mls/hr IV Q24H [facility] Last Infusion: 06/15/22 17:03 Dose: 0 mls/hr Documented By: SEGUNDO Doxycycline Hyclate 100 mg/ (Sodium Chloride) 250 mls @ 166.67 mls/hr IV Q12H [facility] Last Infusion: 06/16/22 06:08 Dose: 0 mls/hr Documented By: CHARLY Insulin Human Lispro (Insulin Lispro 100 Unit/Ml 3 Ml Vial) 0 unit SUBCUT QIDACHS [facility]; Protocol Last Admin: 06/16/22 07:41 Dose: Not Given Documented By: CTORRZ Non-Admin Reason: No Insulin Coverage Ipratropium [place] (Ipratropium [place] 0.5 Mg/2.5 Ml Solution) 0.5 mg INHALE RQ4H WHILE AWAKE [facility] Levalbuterol HCl (Levalbuterol Hcl 1.25 Mg/3 Ml Vial.Neb) 1.25 mg INHALE RQ4H WHILE AWAKE [facility] Levalbuterol HCl (Levalbuterol Hcl 1.25 Mg/3 Ml Vial.Neb) 1.25 mg INHALE Q2H PRN PRN Reason: wheeze/dyspnea Metoprolol Tartrate (Metoprolol Tartrate 25 Mg Tablet) 25 mg PO BID [facility]; Protocol Last Admin: 06/15/22 20:19 Dose: 25 mg Documented By: CHARLY Nystatin (Nystatin Powder 15 Gm Bottle) 1 appl TOPICAL TID [facility]; Protocol Last Admin: 06/15/22 20:19 Dose: 1 appl Documented By: CHARLY Ondansetron HCl (Ondansetron Hcl 4 Mg/2 Ml Vial) 4 mg IVPUSH Q8H PRN PRN Reason: Nausea and Vomiting Pharmacy Consult (Consult Rx Perform Med Rec) 1 each MISCELLANE ONCE PRN PRN Reason: Consult order Sodium Bicarbonate (Sodium Bicarbonate 650 Mg Tablet) 650 mg PO BID [facility] Last Admin: 06/15/22 20:19 Dose: 650 mg Documented By: CHARLY Sodium Chloride (0.9 % Sodium Chloride Flush 3 Ml Syringe) 3 ml IVFLUSH QSHIFT [facility] Last Admin: 06/16/22 08:30 Dose: Not Given Documented By: MARTÍNEZ Non-Admin Reason: No Access Labs 06/16/22 06:44 06/16/22 06:44 Labs: Laboratory Results - last 48 hr 06/14/22 06/14/22 06/15/22 15:39 19:48 04:13 WBC RBC Hgb Hct MCV MCH MCHC RDW Plt Count MPV Absolute Nucleated RBC Nucleated RBC % (auto) O2 Saturation ABG pH at Pt Temp ABG pCO2 at Pt Temp ABG pO2 at Pt Temp ABG HCO3 ABG Base Excess (Actual) VBG pH VBG pCO2 VBG pO2 VBG HCO3 VBG O2 Saturation VBG Base Excess Sodium Potassium Chloride Carbon Dioxide Anion Gap BUN Creatinine Estim Creat Clear Calc Estimated GFR POC Glucose 133 H 154 H 146 H Random Glucose Lactic Acid Calcium Magnesium Total Bilirubin Direct Bilirubin AST ALT Alkaline Phosphatase Troponin I High Sens B-Natriuretic Peptide Total Protein Albumin Procalcitonin 06/15/22 06/15/22 06/15/22 04:23 04:38 04:38 WBC Cancelled RBC Cancelled Hgb Cancelled Hct Cancelled MCV Cancelled MCH Cancelled MCHC Cancelled RDW Cancelled Plt Count Cancelled MPV Cancelled Absolute Nucleated RBC Cancelled Nucleated RBC % (auto) Cancelled O2 Saturation 94.0 ABG pH at Pt Temp 7.29 L ABG pCO2 at Pt Temp 46 H ABG pO2 at Pt Temp 81 L ABG HCO3 22 ABG Base Excess (Actual) -3.5 VBG pH VBG pCO2 VBG pO2 VBG HCO3 VBG O2 Saturation VBG Base Excess Sodium 149 H Potassium 4.5 Chloride 116 H Carbon Dioxide 20 L Anion Gap 18 BUN 37 H Creatinine 1.64 H Estim Creat Clear Calc 37.0 Estimated GFR 31 POC Glucose Random Glucose 158 H Lactic Acid Calcium 8.7 Magnesium Total Bilirubin 1.1 H Direct Bilirubin 0.4 AST 11 ALT 10 Alkaline Phosphatase 112 Troponin I High Sens B-Natriuretic Peptide Total Protein 7.3 Albumin 3.9 Procalcitonin 0.28 06/15/22 06/15/22 06/15/22 04:38 04:38 04:38 WBC 13.5 H RBC 3.23 L Hgb 9.7 L Hct 31.4 L MCV 97.2 MCH 30.0 MCHC 30.9 L RDW 15.5 Plt Count 311 MPV 10.4 Absolute Nucleated RBC 0.030 H Nucleated RBC % (auto) 0.2 O2 Saturation ABG pH at Pt Temp ABG pCO2 at Pt Temp ABG pO2 at Pt Temp ABG HCO3 ABG Base Excess (Actual) VBG pH VBG pCO2 VBG pO2 VBG HCO3 VBG O2 Saturation VBG Base Excess Sodium Cancelled Potassium Cancelled Chloride Cancelled Carbon Dioxide Cancelled Anion Gap Cancelled BUN Cancelled Creatinine Cancelled Estim Creat Clear Calc Cancelled Estimated GFR Cancelled POC Glucose Random Glucose Cancelled Lactic Acid 1.1 Calcium Cancelled Magnesium Total Bilirubin Direct Bilirubin AST ALT Alkaline Phosphatase Troponin I High Sens B-Natriuretic Peptide Total Protein Albumin Procalcitonin 06/15/22 06/15/22 06/15/22 04:38 04:38 04:40 WBC RBC Hgb Hct MCV MCH MCHC RDW Plt Count MPV Absolute Nucleated RBC Nucleated RBC % (auto) O2 Saturation ABG pH at Pt Temp ABG pCO2 at Pt Temp ABG pO2 at Pt Temp ABG HCO3 ABG Base Excess (Actual) VBG pH 7.33 VBG pCO2 39 VBG pO2 65 VBG HCO3 21 L VBG O2 Saturation 90.0 VBG Base Excess -4.1 Sodium Potassium Chloride Carbon Dioxide Anion Gap BUN Creatinine Estim Creat Clear Calc Estimated GFR POC Glucose Random Glucose Lactic Acid Calcium Magnesium Total Bilirubin Direct Bilirubin AST ALT Alkaline Phosphatase Troponin I High Sens 13.3 D B-Natriuretic Peptide 632 H Total Protein Albumin Procalcitonin 06/15/22 06/15/22 06/15/22 07:09 12:10 14:56 WBC RBC Hgb Hct MCV MCH MCHC RDW Plt Count MPV Absolute Nucleated RBC Nucleated RBC % (auto) O2 Saturation ABG pH at Pt Temp ABG pCO2 at Pt Temp ABG pO2 at Pt Temp ABG HCO3 ABG Base Excess (Actual) VBG pH VBG pCO2 VBG pO2 VBG HCO3 VBG O2 Saturation VBG Base Excess Sodium Potassium Chloride Carbon Dioxide Anion Gap BUN Creatinine Estim Creat Clear Calc Estimated GFR POC Glucose 144 H 119 H 137 H Random Glucose Lactic Acid Calcium Magnesium Total Bilirubin Direct Bilirubin AST ALT Alkaline Phosphatase Troponin I High Sens B-Natriuretic Peptide Total Protein Albumin Procalcitonin 06/15/22 06/16/22 06/16/22 19:42 06:44 06:44 WBC 13.8 H RBC 3.23 L Hgb 9.5 L Hct 31.3 L MCV 96.9 MCH 29.4 MCHC 30.4 L RDW 15.3 Plt Count 339 MPV 10.7 Absolute Nucleated RBC 0.030 H Nucleated RBC % (auto) 0.2 O2 Saturation ABG pH at Pt Temp ABG pCO2 at Pt Temp ABG pO2 at Pt Temp ABG HCO3 ABG Base Excess (Actual) VBG pH VBG pCO2 VBG pO2 VBG HCO3 VBG O2 Saturation VBG Base Excess Sodium 149 H Potassium 3.8 Chloride 116 H Carbon Dioxide 23 Anion Gap 14 BUN 38 H Creatinine 1.71 H Estim Creat Clear Calc 35.4 Estimated GFR 29 POC Glucose 137 H Random Glucose 146 H Lactic Acid Calcium 8.8 Magnesium 1.9 Total Bilirubin Direct Bilirubin AST ALT Alkaline Phosphatase Troponin I High Sens B-Natriuretic Peptide Total Protein Albumin Procalcitonin 06/16/22 06/16/22 06/16/22 06:44 07:25 09:05 WBC RBC Hgb Hct MCV MCH MCHC RDW Plt Count MPV Absolute Nucleated RBC Nucleated RBC % (auto) O2 Saturation 91.0 ABG pH at Pt Temp 7.37 ABG pCO2 at Pt Temp 38 ABG pO2 at Pt Temp 68 L ABG HCO3 22 ABG Base Excess (Actual) -1.9 VBG pH VBG pCO2 VBG pO2 VBG HCO3 VBG O2 Saturation VBG Base Excess Sodium Potassium Chloride Carbon Dioxide Anion Gap BUN Creatinine Estim Creat Clear Calc Estimated GFR POC Glucose 137 H Random Glucose Lactic Acid Calcium Magnesium Total Bilirubin Direct Bilirubin AST ALT Alkaline Phosphatase Troponin I High Sens B-Natriuretic Peptide 596 H Total Protein Albumin Procalcitonin 06/16/22 11:18 WBC RBC Hgb Hct MCV MCH MCHC RDW Plt Count MPV Absolute Nucleated RBC Nucleated RBC % (auto) O2 Saturation ABG pH at Pt Temp ABG pCO2 at Pt Temp ABG pO2 at Pt Temp ABG HCO3 ABG Base Excess (Actual) VBG pH VBG pCO2 VBG pO2 VBG HCO3 VBG O2 Saturation VBG Base Excess Sodium Potassium Chloride Carbon Dioxide Anion Gap BUN Creatinine Estim Creat Clear Calc Estimated GFR POC Glucose 132 H Random Glucose Lactic Acid Calcium Magnesium Total Bilirubin Direct Bilirubin AST ALT Alkaline Phosphatase Troponin I High Sens B-Natriuretic Peptide Total Protein Albumin Procalcitonin ITS Impressions Chest X-Ray 06/09/22 15:28 IMPRESSION: * Cardiomegaly and pulmonary venous congestion without overt edema. * Diffuse bronchial wall thickening suggestive of bronchitis. Head CT 06/09/22 15:47 IMPRESSION: No acute intracranial pathology. Abdomen/Pelvis CT 06/09/22 20:32 IMPRESSION: 1. Mild right and [id number] left hydroureteronephrosis, new when compared to the prior examination. No obstructing stone. Unremarkable urinary bladder without associated calcification. 2. Moderate stool burden, which could indicate a degree of constipation. No small or large bowel obstruction. No bowel wall thickening or inflammatory change. Unremarkable appendix. 3. No intra-abdominal mass, lymphadenopathy, or ascites. 4. Additional chronic findings are unchanged. Fleischner guidelines were followed. Chest X-Ray 06/13/22 12:33 IMPRESSION: Question mild CHF similar to previous exam. New left upper lung subsegmental atelectasis. No definite pneumonia. Head CT 06/13/22 13:47 IMPRESSION: No acute intracranial hemorrhage or territorial infarction. Chest X-Ray 06/15/22 04:35 IMPRESSION: Prominent central vasculature with patchy perihilar opacities suggesting edema. Enlarged cardiac silhouette. Head CT 06/15/22 05:24 IMPRESSION: No acute intracranial pathology. Assessment and Plan (1) Acute metabolic encephalopathy: Status: Acute (2) Hyperkalemia: Status: Acute Plan hospital d#7 76yo F with HTN, HLD, DM2, CAD, pAF on apixaban, chronic BLE weakness [uses motorized chair], anxiety, depression, chronic pain syndrome, CKD with bilateral hydroureteronephrosis admitted for acute metabolic encephalopathy, LETHA # acute HFpEF - diurese with fursoemide, check TTE, monitor I/O + lytes # acute hypoxic resp failure - diureses and wean O2 as tolerated # acute toxic/metabolic encephalopathy - treating empiricaly for PNA with ceftriaxone + doxycycline #4 but suspect polypharmacy so d/c'ed quetiapine + gabapentin as she is on quite high doses # paroxysmal AF/RVR - continue apixaban + metoprolol- give 1 dose IV metoprolo now # LETHA/CKD3 - SCr improved with Solis, likely obstructive uropathy, Nephrology following, Urology consulted- will need to d/c with Solis and f/u as outpt to discuss SPC when medically stable - hold lisinopril-HCTZ # hyperK due to LETHA - K 7.2 on arrival, now 4.8, d/c'ed Lokelma, lisinopril d/c'ed # metabolic acidosis - continue bicarbonate supplementation # DM2 - continue correction-dose lispro # HTN - cotinue amlodipine + metoprolol - hold lisinopril-HCTZ as above # CAD - continue metoprolol + statin + ezetimibe # mood disorder - continue fluoxetine + duloxetine, d/c'ed quetiapine as above # chronic pain - d/c'ed gabapentin as above # chest wall pain - troponin + EKG unremarkable # VTE ppx: apixaban # dispo: TBD In my clinical judgment, the patient requires continued inpatient hospitalization for the following reasons: encephalopathy, LETHA Time Spent With Patient Time: Total time managing care of this patient today ___55_ minutes. Quality Stroke Does the patient have a stroke diagnosis?: No VTE Prior VTE?: No VTE Risk Level:: Medical - moderate - high VTE Device Contraindication: Treatment Not Indicated VTE Drug Contraindication: N/A - Med Ordered
[2022-06-16 11:29] LABS: Glucose, Whole Blood 132 mg/dL (60-115)
[2022-06-16] MEDS: levalbuterol HCL 1.25 MG/3 ML VIAL.NEB INHALE (11:33)
[2022-06-16] MEDS: Ipratropium Bromide 0.5 MG/2.5 ML SOLUTION INHALE (11:33)
--- NOTE | 2022-06-16 11:41 | P.PNIM_ITS ---
Subjective Subjective Date of Service: 06/16/22 Interval History: Agitated this AM Pulled out IV Refused medications in AF/RVR Review of Systems Review of Systems: Yes Unobtainable due to mental status Physical Exam Vital Signs: Vital Signs: Last Vital Signs Temp 98.5 F 06/16/22 08:00 Pulse 127 H 06/16/22 11:35 Resp 20 06/16/22 11:35 BP 189/88 H 06/16/22 08:00 Pulse Ox 92 06/16/22 08:00 O2 Del Method Nasal Cannula 06/16/22 08:00 O2 Flow Rate 4.5 06/16/22 08:00 BMI result Body Mass Index 48.2 Gen: agitated but redirectable HEENT: sclera anicteric, moist mucus membranes Neck: supple Lungs: diminished bilaterally Heart: rapid, irregular, no murmurs Abd: soft, non-tender, non-distended, morbid obesity : Solis with clear urine Ext: 1+ edema Skin: warm/well-perfused Neuro: alert, confused, oriented to self only Psych: impaired insight Objective Data Active Medications Acetaminophen (Acetaminophen 325 Mg Tablet) 650 mg PO Q6H PRN PRN Reason: Pain, Mild (Pain Scale 1-3) Last Admin: 06/10/22 18:27 Dose: 650 mg Documented By: JEEVAN Amlodipine Besylate (Amlodipine Besylate 5 Mg Tablet) 5 mg PO DAILY [facility]; Protocol Last Admin: 06/15/22 08:34 Dose: 5 mg Documented By: LISA Apixaban (Apixaban 5 Mg Tablet) 5 mg PO BID [facility] Last Admin: 06/15/22 20:19 Dose: 5 mg Documented By: CHARLY Atorvastatin Calcium (Atorvastatin Calcium 80 Mg Tablet) 80 mg PO BEDTIME [facility] Last Admin: 06/15/22 20:18 Dose: 80 mg Documented By: CHARLY Docusate Sodium (Docusate Sodium 100 Mg Capsule) 100 mg PO DAILY PRN PRN Reason: Constipation Ezetimibe (Ezetimibe 10 Mg Tablet) 10 mg PO DAILY [facility] Last Admin: 06/15/22 08:35 Dose: 10 mg Documented By: LISA Ferrous Sulfate (Ferrous Sulfate 324 Mg Tablet.) 324 mg PO DAILY [facility] Last Admin: 06/15/22 08:35 Dose: 324 mg Documented By: LISA Fluoxetine HCl (Fluoxetine Hcl 20 Mg Capsule) 20 mg PO DAILY [facility] Last Admin: 06/15/22 08:35 Dose: 20 mg Documented By: LISA Furosemide (Furosemide 40 Mg/4 Ml Vial) 40 mg IVPUSH BID@0900,1800 [facility]; Protocol Last Admin: 06/15/22 17:10 Dose: 40 mg Documented By: SEGUNDO Glucose (Glucose Gel 15 Gm Gel..Gram.) 15 gm PO Q15M PRN; Protocol PRN Reason: per Hypoglycemia Standing Ord. Dextrose (D10) 250 mls @ 750 mls/hr IV Q15M PRN; Protocol PRN Reason: per Hypoglycemia Standing Ord. Ceftriaxone Sodium 1 gm/ (Sodium Chloride) 50 mls @ 100 mls/hr IV Q24H [facility] Last Infusion: 06/15/22 17:03 Dose: 0 mls/hr Documented By: SEGUNDO Doxycycline Hyclate 100 mg/ (Sodium Chloride) 250 mls @ 166.67 mls/hr IV Q12H [facility] Last Infusion: 06/16/22 06:08 Dose: 0 mls/hr Documented By: CHARLY Insulin Human Lispro (Insulin Lispro 100 Unit/Ml 3 Ml Vial) 0 unit SUBCUT QIDACHS [facility]; Protocol Last Admin: 06/16/22 07:41 Dose: Not Given Documented By: MARTÍNEZ Non-Admin Reason: No Insulin Coverage Ipratropium [place] (Ipratropium [place] 0.5 Mg/2.5 Ml Solution) 0.5 mg INHALE RQ4H WHILE AWAKE [facility] Last Admin: 06/16/22 11:33 Dose: 0.5 mg Levalbuterol HCl (Levalbuterol Hcl 1.25 Mg/3 Ml Vial.Neb) 1.25 mg INHALE RQ4H WHILE AWAKE [facility] Last Admin: 06/16/22 11:33 Dose: 1.25 mg Levalbuterol HCl (Levalbuterol Hcl 1.25 Mg/3 Ml Vial.Neb) 1.25 mg INHALE Q2H PRN PRN Reason: wheeze/dyspnea Metoprolol Tartrate (Metoprolol Tartrate 25 Mg Tablet) 25 mg PO BID [facility]; Protocol Last Admin: 06/15/22 20:19 Dose: 25 mg Documented By: CHARLY Nystatin (Nystatin Powder 15 Gm Bottle) 1 appl TOPICAL TID [facility]; Protocol Last Admin: 06/15/22 20:19 Dose: 1 appl Documented By: CHARLY Ondansetron HCl (Ondansetron Hcl 4 Mg/2 Ml Vial) 4 mg IVPUSH Q8H PRN PRN Reason: Nausea and Vomiting Pharmacy Consult (Consult Rx Perform Med Rec) 1 each MISCELLANE ONCE PRN PRN Reason: Consult order Sodium Bicarbonate (Sodium Bicarbonate 650 Mg Tablet) 650 mg PO BID [facility] Last Admin: 06/15/22 20:19 Dose: 650 mg Documented By: CHARLY Sodium Chloride (0.9 % Sodium Chloride Flush 3 Ml Syringe) 3 ml IVFLUSH QSHIFT [facility] Last Admin: 06/16/22 08:30 Dose: Not Given Documented By: MARTÍNEZ Non-Admin Reason: No Access Labs 06/16/22 06:44 06/16/22 06:44 Labs: Laboratory Results - last 24 hr 06/15/22 06/15/22 06/15/22 12:10 14:56 19:42 MCV MCH MCHC RDW Plt Count MPV Absolute Nucleated RBC Nucleated RBC % (auto) O2 Saturation ABG pH at Pt Temp ABG pCO2 at Pt Temp ABG pO2 at Pt Temp ABG HCO3 ABG Base Excess (Actual) Anion Gap Estim Creat Clear Calc Estimated GFR POC Glucose 119 H 137 H 137 H Random Glucose Calcium Magnesium B-Natriuretic Peptide 06/16/22 06/16/22 06/16/22 06:44 06:44 06:44 MCV 96.9 MCH 29.4 MCHC 30.4 L RDW 15.3 Plt Count 339 MPV 10.7 Absolute Nucleated RBC 0.030 H Nucleated RBC % (auto) 0.2 O2 Saturation ABG pH at Pt Temp ABG pCO2 at Pt Temp ABG pO2 at Pt Temp ABG HCO3 ABG Base Excess (Actual) Anion Gap 14 Estim Creat Clear Calc 35.4 Estimated GFR 29 POC Glucose Random Glucose 146 H Calcium 8.8 Magnesium 1.9 B-Natriuretic Peptide 596 H 06/16/22 06/16/22 06/16/22 07:25 09:05 11:18 MCV MCH MCHC RDW Plt Count MPV Absolute Nucleated RBC Nucleated RBC % (auto) O2 Saturation 91.0 ABG pH at Pt Temp 7.37 ABG pCO2 at Pt Temp 38 ABG pO2 at Pt Temp 68 L ABG HCO3 22 ABG Base Excess (Actual) -1.9 Anion Gap Estim Creat Clear Calc Estimated GFR POC Glucose 137 H 132 H Random Glucose Calcium Magnesium B-Natriuretic Peptide TTE 06/15/22 ?1. Normal LV systolic function with LVEF of 60 65% ? 2. Normal cardiac valvular Dopplers? 3. 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 4. No gross pericardial effusion ? Assessment and Plan (1) Acute metabolic encephalopathy: Status: Acute (2) Hyperkalemia: Status: Acute Plan hospital d#8 76yo F with HTN, HLD, DM2, CAD, pAF on apixaban, chronic BLE weakness [uses motorized chair], anxiety, depression, chronic pain syndrome, CKD with bilateral hydroureteronephrosis admitted for acute metabolic encephalopathy, LETHA # paroxysmal AF/RVR - continue apixaban + metoprolol- start diltiazem gtt once has IV access # acute HFpEF - diurese with furosemide, monitor I/O + lytes # acute hypoxic resp failure - diurese and wean O2 as tolerated # acute toxic/metabolic encephalopathy - treating empiricaly for PNA with ceftriaxone + doxycycline #4 but also suspect polypharmacy so d/c'ed quetiapine + gabapentin as she is on quite high doses # LETHA/CKD3 - SCr improved with Solis, likely obstructive uropathy, Nephrology following, Urology consulted- will need to d/c with Solis and f/u as outpt to discuss SPC w hen medically stable - hold lisinopril-HCTZ # hyperK due to LETHA - K 7.2 on arrival, now 4.8, d/c'ed Lokelma, lisinopril d/c'ed # metabolic acidosis - resolved- d/c bicarbonate supplementation # DM2 - continue correction-dose lispro # HTN - cotinue amlodipine + metoprolol - hold lisinopril-HCTZ as above # CAD - continue metoprolol + statin + ezetimibe # mood disorder - continue fluoxetine + duloxetine, d/c'ed quetiapine as above # chronic pain - d/c'ed gabapentin as above # chest wall pain - troponin + EKG unremarkable # VTE ppx: apixaban # dispo: TBD In my clinical judgment, the patient requires continued inpatient hospitalization for the following reasons: encephalopathy, LETHA Time Spent With Patient Time: Total time managing care of this patient today ___50_ minutes. Quality Stroke Does the patient have a stroke diagnosis?: No VTE Prior VTE?: No VTE Risk Level:: Medical - moderate - high VTE Device Contraindication: Treatment Not Indicated VTE Drug Contraindication: N/A - Med Ordered
[2022-06-16] MEDS: Furosemide 40 MG/4 ML VIAL IVPUSH ×2 (12:26→17:33)
[2022-06-16] MEDS: dilTIAZem HCL 125 MG in 0.9 % Sodium Chloride 100 ML 10 MG IVCONT (12:27)
[2022-06-16] MEDS: dilTIAZem HCL 50 MG/10 ML VIAL 20 MG IVPUSH (13:55)
[2022-06-16 14:19] LABS: ABG Refer to POC result
[2022-06-16 16:04] LABS: Glucose, Whole Blood 135 mg/dL (60-115)
--- NOTE | 2022-06-16 16:24 | P.CDIM_ITS ---
PROVIDER RESPONSE TEXT: To clarify, the appropriate diagnosis supported by the clinical indicators: Other (explain): morbid obesity QUERY TEXT: PHYSICIAN'S DOCUMENTATION REQUEST Date of Query: 06/14/2022 02:27 PM EDT Patient Name: Shweta Woodard Admit Date: 06/10/2022 Dear Chase Barry, A review of the medical record indicates additional documentation may be needed. Please review below and update the documentation accordingly. Clinical Indicators: Height: ( ) 5'2 Weight: ( ) 119.7 kg BMI: ( ) 48.3 Other Clinical Notes Supporting Significance of the BMI: Per Nutritional Risk Assessment 06/10/22: On therapeutic diet If possible, please provide an associated diagnosis related to the abnormal BMI, such as: Overweight Obesity Due to excess calories Obesity Drug induced Obesity Due to other cause Specify the other cause Severe or Morbid Obesity With alveolar hypoventilation Severe or Morbid Obesity Without alveolar hypoventilation BMI is not significant Other (explain) Clinically unable to determine (explain) Thank you, Blossom Kline RN Use of terms such as suspected, likely, concern for, or probable (associated with a specific diagnosi s that is being evaluated, monitored, or treated as if it exists) are acceptable and can be coded in the inpatient se tting, when documented at the time of discharge. Please use your independent medical judgment in providing your response. THIS QUERY IS PART OF THE PERMANENT MEDICAL RECORD
[2022-06-16] MEDS: cefTRIAXone sodium 1 GM in 0.9 % Sodium Chloride 50 ML IV (16:47)
[2022-06-16] MEDS: Nystatin Powder 15 GM BOTTLE 1 APPL TOPICAL ×2 (16:48→21:05)
[2022-06-16] MEDS: 0.9 % Sodium Chloride Flush 3 ML SYRINGE IVFLUSH (16:55)
[2022-06-16 19:16] LABS: Glucose, Whole Blood 144 mg/dL (60-115)
[2022-06-16] MEDS: dilTIAZem HCL 125 MG in 0.9 % Sodium Chloride 100 ML 15 MG IVCONT (19:48)
[2022-06-16] MEDS: Apixaban 5 MG TABLET PO (19:54)
[2022-06-16] MEDS: Metoprolol Tartrate 25 MG TABLET PO (19:54)
[2022-06-17] VITALS: BP 167/107; PULSE 107; RESP 18; TEMP 37.5; O2SAT 92
--- NOTE | 2022-06-17 00:01 | PC.NURSE ---
194; cardizem drip bag changed with assistance of an [facility] nurse. heart rate remains 110s-120s
[2022-06-17] MEDS: diphenhydrAMINE HCL 50 MG/ML VIAL 25 MG IVPUSH (01:01)
[2022-06-17] MEDS: 0.9 % Sodium Chloride Flush 3 ML SYRINGE IVFLUSH ×4 (01:01→20:39)
[2022-06-17 01:50] VITALS: BP 158/82
[2022-06-17] MEDS: Doxycycline Hyclate 100 MG in 0.9 % Sodium Chloride 250 ML 166.67 MG IV ×2 (03:36→16:31)
[2022-06-17] MEDS: dilTIAZem HCL 125 MG in 0.9 % Sodium Chloride 100 ML 15 MG IVCONT ×2 (04:28→11:50)
[2022-06-17 07:24] LABS: Glucose, Whole Blood 131 mg/dL (60-115)
[2022-06-17 07:36] LABS: Anion Gap 20 (12-20); Blood Urea Nitrogen 41 mg/dL (9-16); Calcium 8.9 mg/dL (8.4-10.2); Carbon Dioxide 22 mmol/L (22-29); Chloride 114 mmol/L (96-108); Creatinine Clr Calc Pharmacy 34.1; Estimated Glomerular Filt Rate 28; Glucose Random 131 mg/dL (60-115); Magnesium 1.6 mg/dL (1.6-2.6); Potassium 3.5 mmol/L (3.3-5.1); Sodium 152 mmol/L (135-145)
[2022-06-17 07:41] LABS: B Type Natriuretic Peptide 473 pg/mL (<100)
[2022-06-17 07:58] VITALS: BP 144/81; PULSE 94; RESP 20; TEMP 37.2; O2SAT 93
[2022-06-17] MEDS: Furosemide 40 MG/4 ML VIAL IVPUSH (08:54)
[2022-06-17] MEDS: Nystatin Powder 15 GM BOTTLE 1 APPL TOPICAL ×3 (09:04→20:38)
--- NOTE | 2022-06-17 09:52 | P.PNIM_ITS ---
Subjective Subjective Date of Service: 06/17/22 Interval History: Agitated this AM wicked confused HR is better Review of Systems Review of Systems: Yes Unobtainable due to mental status Physical Exam Vital Signs: Vital Signs: Last Vital Signs Temp 99.0 F 06/17/22 07:58 Pulse 94 06/17/22 07:58 Resp 20 06/17/22 07:58 BP 144/81 H 06/17/22 07:58 Pulse Ox 93 06/17/22 07:58 O2 Del Method Nasal Cannula 06/17/22 07:58 O2 Flow Rate 3 06/17/22 07:58 BMI result Body Mass Index 48.2 Objective Data Active Medications Acetaminophen (Acetaminophen 325 Mg Tablet) 650 mg PO Q6H PRN PRN Reason: Pain, Mild (Pain Scale 1-3) Last Admin: 06/10/22 18:27 Dose: 650 mg Documented By: JEEVAN Apixaban (Apixaban 5 Mg Tablet) 5 mg PO BID [facility] Last Admin: 06/17/22 09:03 Dose: Not Given Documented By: MARTÍNEZ Non-Admin Reason: Patient Refused Atorvastatin Calcium (Atorvastatin Calcium 80 Mg Tablet) 80 mg PO BEDTIME [facility] Last Admin: 06/16/22 19:58 Dose: Not Given Documented By: JL Non-Admin Reason: Patient Refused Docusate Sodium (Docusate Sodium 100 Mg Capsule) 100 mg PO DAILY PRN PRN Reason: Constipation Ezetimibe (Ezetimibe 10 Mg Tablet) 10 mg PO DAILY [facility] Last Admin: 06/17/22 09:04 Dose: Not Given Documented By: MARTÍNEZ Non-Admin Reason: Patient Refused Ferrous Sulfate (Ferrous Sulfate 324 Mg Tablet.Dr) 324 mg PO DAILY [facility] Last Admin: 06/17/22 09:04 Dose: Not Given Documented By: MARTÍNEZ Non-Admin Reason: Patient Refused Fluoxetine HCl (Fluoxetine Hcl 20 Mg Capsule) 20 mg PO DAILY [facility] Last Admin: 06/17/22 09:04 Dose: Not Given Documented By: MARTÍNEZ Non-Admin Reason: Patient Refused Furosemide (Furosemide 40 Mg/4 Ml Vial) 40 mg IVPUSH BID@0900,1800 [facility]; Protocol Last Admin: 06/17/22 08:54 Dose: 40 mg Documented By: MARTÍNEZ Glucose (Glucose Gel 15 Gm Gel..Gram.) 15 gm PO Q15M PRN; Protocol PRN Reason: per Hypoglycemia Standing Ord. Dextrose (D10) 250 mls @ 750 mls/hr IV Q15M PRN; Protocol PRN Reason: per Hypoglycemia Standing Ord. Ceftriaxone Sodium 1 gm/ (Sodium Chloride) 50 mls @ 100 mls/hr IV Q24H [facility] Last Infusion: 06/16/22 17:34 Dose: 0 mls/hr Documented By: MARTÍNEZ Doxycycline Hyclate 100 mg/ (Sodium Chloride) 250 mls @ 166.67 mls/hr IV Q12H [facility] Last Infusion: 06/17/22 05:15 Dose: 0 mls/hr Documented By: ARIADNE Diltiazem HCl 125 mg/ Sodium (Chloride) 125 mls @ 0 mls/hr IVCONT .Q0M [facility]; Protocol Last Admin: 06/17/22 04:28 Dose: 15 mg/hr, 15 mls/hr Documented By: ARIADNE Insulin Human Lispro (Insulin Lispro 100 Unit/Ml 3 Ml Vial) 0 unit SUBCUT QIDACHS [facility]; Protocol Last Admin: 06/17/22 07:37 Dose: Not Given Documented By: MARTÍNEZ Non-Admin Reason: No Insulin Coverage Ipratropium [place] (Ipratropium [place] 0.5 Mg/2.5 Ml Solution) 0.5 mg INHALE RQ4H WHILE AWAKE [facility] Last Admin: 06/17/22 07:55 Dose: Not Given Documented By: BRO Non-Admin Reason: See Note Levalbuterol HCl (Levalbuterol Hcl 1.25 Mg/3 Ml Vial.Neb) 1.25 mg INHALE RQ4H WHILE AWAKE [facility] Last Admin: 06/17/22 07:55 Dose: Not Given Documented By: BRO Non-Admin Reason: See Note Levalbuterol HCl (Levalbuterol Hcl 1.25 Mg/3 Ml Vial.Neb) 1.25 mg INHALE Q2H PRN PRN Reason: wheeze/dyspnea Metoprolol Tartrate (Metoprolol Tartrate 25 Mg Tablet) 25 mg PO BID [facility]; Protocol Last Admin: 06/17/22 09:04 Dose: Not Given Documented By: MARTÍNEZ Non-Admin Reason: Patient Refused Nystatin (Nystatin Powder 15 Gm Bottle) 1 appl TOPICAL TID [facility]; Protocol Last Admin: 06/17/22 09:04 Dose: 1 appl Documented By: MARTÍNEZ Ondansetron HCl (Ondansetron Hcl 4 Mg/2 Ml Vial) 4 mg IVPUSH Q8H PRN PRN Reason: Nausea and Vomiting Pharmacy Consult (Consult Rx Perform Med Rec) 1 each MISCELLANE ONCE PRN PRN Reason: Consult order Sodium Chloride (0.9 % Sodium Chloride Flush 3 Ml Syringe) 3 ml IVFLUSH QSHIFT [facility] Last Admin: 06/17/22 08:57 Dose: 3 ml Documented By: MARTÍNEZ Labs 06/16/22 06:44 06/17/22 06:43 Labs: Laboratory Results - last 24 hr 06/16/22 06/16/22 06/16/22 11:18 15:59 19:12 Anion Gap Estim Creat Clear Calc Estimated GFR POC Glucose 132 H 135 H 144 H Random Glucose Calcium Magnesium B-Natriuretic Peptide 06/17/22 06/17/22 06/17/22 06:43 06:43 07:12 Anion Gap 20 Estim Creat Clear Calc 34.1 Estimated GFR 28 POC Glucose 131 H Random Glucose 131 H Calcium 8.9 Magnesium 1.6 B-Natriuretic Peptide 473 H Assessment and Plan (1) Acute metabolic encephalopathy: Status: Acute (2) Hyperkalemia: Status: Acute Plan hospital d#9 76yo F with HTN, HLD, DM2, CAD, pAF on apixaban, chronic BLE weakness [uses motorized chair], anxiety, depression, chronic pain syndrome, CKD with bilateral hydroureteronephrosis admitted for acute metabolic encephalopathy, LETHA # paroxysmal AF/RVR - continue apixaban + metoprolol- diltiazem drip for RVR # acute HFpEF - diurese with furosemide, monitor I/O + lytes # acute hypoxic resp failure - diurese and wean O2 as tolerated # acute toxic/metabolic encephalopathy - treating empiricaly for PNA with ceftriaxone + doxycycline #4 but also suspect polypharmacy so d/c'ed quetiapine + gabapentin as she is on quite high doses # LETHA/CKD3 - SCr improved with Solis, likely obstructive uropathy, Nephrology following, Urology consulted- will need to d/c with [facility]is and f/u as outpt to discuss SPC when medically stable - hold lisinopril-HCTZ # hyperK due to LETHA - K 7.2 on arrival, now 4.8, d/c'ed Lokelma, lisinopril d/c'ed, K is 3.7 today # metabolic acidosis - resolved- # DM2 - continue correction-dose lispro #Hypernatremia--152, DC IV Lasix, may need IV water if not able to drink # HTN - cotinue amlodipine + metoprolol - hold lisinopril-HCTZ as above # CAD - continue metoprolol + statin + ezetimibe # mood disorder - continue fluoxetine + duloxetine, d/c'ed quetiapine as above # chronic pain - d/c'ed gabapentin as above # chest wall pain - troponin + EKG unremarkable # VTE ppx: apixaban # dispo: TBD In my clinical judgment, the patient requires continued inpatient hospitalization for the following reasons: encephalopathy, LETHA Time Spent With Patient Time: Total time managing care of this patient today ____ minutes. Quality Stroke Does the patient have a stroke diagnosis?: No VTE Prior VTE?: No VTE Risk Level:: Medical - moderate - high VTE Device Contraindication: Treatment Not Indicated VTE Drug Contraindication: N/A - Med Ordered
--- NOTE | 2022-06-17 10:43 | MHC.CM.PN ---
Per ROUNDS discussion, Patient is very confused and not yet medically cleared for dc. CM will follow.
[2022-06-17 11:44] VITALS: BP 144/78; PULSE 102; RESP 20; TEMP 37.9; O2SAT 97
[2022-06-17 11:56] LABS: Glucose, Whole Blood 149 mg/dL (60-115)
[2022-06-17 15:28] VITALS: BP 148/90; PULSE 91; RESP 20; TEMP 36.8; O2SAT 94
[2022-06-17] MEDS: cefTRIAXone sodium 1 GM in 0.9 % Sodium Chloride 50 ML IV (15:42)
[2022-06-17 16:26] LABS: Glucose, Whole Blood 135 mg/dL (60-115)
[2022-06-17 19:37] VITALS: BP 127/82; PULSE 102; RESP 20; TEMP 36; O2SAT 96
[2022-06-17] MEDS: Acetaminophen 325 MG TABLET 650 MG PO (20:35)
[2022-06-17] MEDS: Atorvastatin Calcium 80 MG TABLET PO (20:36)
[2022-06-17] MEDS: Apixaban 5 MG TABLET PO (20:37)
[2022-06-17] MEDS: Metoprolol Tartrate 25 MG TABLET PO (20:37)
[2022-06-17] MEDS: dilTIAZem HCL 125 MG in 0.9 % Sodium Chloride 100 ML 10 MG IVCONT (20:39)
[2022-06-17 20:44] LABS: Glucose, Whole Blood 147 mg/dL (60-115)
--- NOTE | 2022-06-17 21:20 | PM.PNNEP ---
Subjective Subjective Date of Service: 06/17/22 Interval history: Agitated this AM wicked confused HR is better Physical Exam Vital Signs: Vital Signs: Last Vital Signs Temp 96.8 F 06/17/22 19:37 Pulse 102 H 06/17/22 19:37 Resp 20 06/17/22 19:37 BP 127/82 06/17/22 19:37 Pulse Ox 96 06/17/22 19:37 O2 Del Method Nasal Cannula 06/17/22 19:37 O2 Flow Rate 3 06/17/22 19:37 BMI result Body Mass Index 48.2 Const: Other: General awake alert x3,no acute distress.? Neck? no JVD. CVS? regular rate rhythm, Respiratory lungs clear to auscultation, no respiratory distress, no wheeze, no rhonchi. Gastrointestinal abdomen soft, obese, nontender, bowel sounds audible Extremities no? edema Back no CVA tenderness Neuro nonfocal, speech clear Psych appropriate affect Solis catheter with cloudy urine Objective Data Labs 06/16/22 06:44 06/17/22 06:43 Labs: Laboratory Results - last 24 hr 06/17/22 06/17/22 06/17/22 06:43 06:43 07:12 Sodium 152 H Potassium 3.5 Chloride 114 H Carbon Dioxide 22 Anion Gap 20 BUN 41 H Creatinine 1.78 H Estim Creat Clear Calc 34.1 Estimated GFR 28 POC Glucose 131 H Random Glucose 131 H Calcium 8.9 Magnesium 1.6 B-Natriuretic Peptide 473 H 06/17/22 06/17/22 06/17/22 11:51 16:18 20:41 Sodium Potassium Chloride Carbon Dioxide Anion Gap BUN Creatinine Estim Creat Clear Calc Estimated GFR POC Glucose 149 H 135 H 147 H Random Glucose Calcium Magnesium B-Natriuretic Peptide Microbiology Microbiology Results: Microbiology 06/09/22 16:18 Blood - Venous Blood Culture - Final No growth after 5 days. 06/09/22 16:06 Blood - Venous Blood Culture - Final No growth after 5 days. 06/09/22 19:05 Urine clean catch - Urine [place] top Urine Culture - Final Jennifer parapsilosis Procedures Date of Service Date of Service: 06/17/22 Assessment & Plan Assessment and plan (1) LETHA (acute kidney injury): Status: Acute Plan Acute kidney injury superimposed on chronic kidney disease with severe hyperkalemia primarily due to obstructive uropathy/urinary retention. She could have superimposed tubular injury. No reason to believe she has any active glomerulonephritis at this time. Obstructive uropathy. Anemia without thrombocytopenia. Hyperchloremic metabolic acidosis. Hypernatremia due to free water deficit. Probably worsened by use of loop diuretic. Recommendations Hold Lasix D5 W ordred Keep Solis catheter. Urology f/u Watch K keep intake more than the output. sodium bicarbonate d/c 'd as bicarb is better - Na is better Continued to avoid nephrotoxic agents. Follow renal function closely. . We will follow her along upon DC Time Spent With Patient Time: Total time managing care of this patient today ____ minutes. Progress Note: Quality Stroke Does the patient have a stroke diagnosis?: No
[2022-06-17] MEDS: Dextrose 5 % 1,000 ML 125 ML IVCONT (21:56)
[2022-06-18] VITALS (8 sets, daily range): BP systolic 107–166; BP diastolic 51–90; PULSE 69–94; RESP 17–20; TEMP 36–38.1; O2SAT 91–99
--- NOTE | 2022-06-18 00:46 | PM.EVENT ---
Event Note Date of Service: 06/18/22 Event Note: pt had a 3s pause. awake Time Spent With Patient Time: Total time managing care of this patient today ____ minutes.
[2022-06-18] MEDS: Dextrose 5 % 1,000 ML 125 ML IVCONT (05:02)
[2022-06-18] MEDS: Doxycycline Hyclate 100 MG in 0.9 % Sodium Chloride 250 ML 166.67 MG IV (05:06)
[2022-06-18 08:22] LABS: Glucose, Whole Blood 151 mg/dL (60-115)
[2022-06-18 08:36] LABS: Anion Gap 12 (12-20); Blood Urea Nitrogen 44 mg/dL (9-16); Carbon Dioxide 26 mmol/L (22-29); Chloride 112 mmol/L (96-108); Creatinine Clr Calc Pharmacy 36.1; Estimated Glomerular Filt Rate 30; Glucose Random 158 mg/dL (60-115); Potassium 2.9 mmol/L (3.3-5.1); Sodium 147 mmol/L (135-145)
[2022-06-18 08:41] LABS: B Type Natriuretic Peptide 257 pg/mL (<100)
[2022-06-18 08:43] LABS: Calcium 8.1 mg/dL (8.4-10.2)
[2022-06-18] MEDS: Metoprolol Tartrate 25 MG TABLET PO ×2 (09:26→22:45)
[2022-06-18] MEDS: 0.9 % Sodium Chloride Flush 3 ML SYRINGE IVFLUSH ×3 (09:26→22:47)
[2022-06-18] MEDS: FLUoxetine HCl 20 MG CAPSULE PO (09:26)
[2022-06-18] MEDS: Apixaban 5 MG TABLET PO ×2 (09:26→22:45)
[2022-06-18] MEDS: Ferrous Sulfate 324 MG TABLET.DR PO (09:26)
--- NOTE | 2022-06-18 09:34 | P.PNIM_ITS ---
Subjective Subjective Date of Service: 06/18/22 Interval History: Patient is calm and oriented this am although lethargic HR is better, diltiazem drip discontinued overnight Cardiovascular Cardiovascular: Reports no additional cardiovascular complaints Respiratory Respiratory: Reports no additional respiratory complaints Physical Exam Vital Signs: Vital Signs: Last Vital Signs Temp 98.6 F 06/18/22 08:00 Pulse 77 06/18/22 08:00 Resp 17 06/18/22 08:00 BP 129/81 06/18/22 08:00 Pulse Ox 99 06/18/22 08:00 O2 Del Method Nasal Cannula 06/18/22 08:00 O2 Flow Rate 3 06/18/22 08:00 BMI result Body Mass Index 48.2 Const: Other: General awake alert x3,no acute distress.? Neck? no JVD. CVS? regular rate rhythm, Respiratory lungs clear to auscultation, no respiratory distress, no wheeze, no rhonchi. Gastrointestinal abdomen soft, obese, nontender, bowel sounds audible No chest wall tenderness, no redness, no tenderness, good range of motion left shoulder. Extremities no? edema Back no CVA tenderness Neuro nonfocal, speech clear Psych appropriate affect Objective Data Active Medications Acetaminophen (Acetaminophen 325 Mg Tablet) 650 mg PO Q6H PRN PRN Reason: Pain, Mild (Pain Scale 1-3) Last Admin: 06/17/22 20:35 Dose: 650 mg Documented By: EDEN Apixaban (Apixaban 5 Mg Tablet) 5 mg PO BID [facility] Last Admin: 06/18/22 09:26 Dose: 5 mg Documented By: JEEVAN Atorvastatin Calcium (Atorvastatin Calcium 80 Mg Tablet) 80 mg PO BEDTIME [facility] Last Admin: 06/17/22 20:36 Dose: 80 mg Documented By: EDEN Docusate Sodium (Docusate Sodium 100 Mg Capsule) 100 mg PO DAILY PRN PRN Reason: Constipation Ezetimibe (Ezetimibe 10 Mg Tablet) 10 mg PO DAILY [facility] Last Admin: 06/18/22 09:26 Dose: 10 mg Documented By: JEEVAN Ferrous Sulfate (Ferrous Sulfate 324 Mg Tablet.Dr) 324 mg PO DAILY [facility] Last Admin: 06/18/22 09:26 Dose: 324 mg Documented By: JEEVAN Fluoxetine HCl (Fluoxetine Hcl 20 Mg Capsule) 20 mg PO DAILY [facility] Last Admin: 06/18/22 09:26 Dose: 20 mg Documented By: JEEVAN Glucose (Glucose Gel 15 Gm Gel..Gram.) 15 gm PO Q15M PRN; Protocol PRN Reason: per Hypoglycemia Standing Ord. Dextrose (D10) 250 mls @ 750 mls/hr IV Q15M PRN; Protocol PRN Reason: per Hypoglycemia Standing Ord. Ceftriaxone Sodium 1 gm/ (Sodium Chloride) 50 mls @ 100 mls/hr IV Q24H [facility] Last Infusion: 06/17/22 16:42 Dose: 0 mls/hr Documented By: PAULINEORRZ Doxycycline Hyclate 100 mg/ (Sodium Chloride) 250 mls @ 166.67 mls/hr IV Q12H [facility] Last Infusion: 06/18/22 07:27 Dose: 0 mls/hr Documented By: JEEVAN Diltiazem HCl 125 mg/ Sodium (Chloride) 125 mls @ 0 mls/hr IVCONT .Q0M [facility]; Protocol Last Titration: 06/17/22 22:24 Dose: 5 mg/hr, 5 mls/hr Documented By: EDEN Dextrose (D5w) 1,000 mls @ 125 mls/hr IVCONT .Q8H [facility] Last Admin: 06/18/22 05:02 Dose: 125 mls/hr Documented By: TAD Insulin Human Lispro (Insulin Lispro 100 Unit/Ml 3 Ml Vial) 0 unit SUBCUT QIDACHS [facility]; Protocol Last Admin: 06/18/22 09:32 Dose: Not Given Documented By: JEEVAN Non-Admin Reason: Pt having decrease PO intake Ipratropium [place] (Ipratropium [place] 0.5 Mg/2.5 Ml Solution) 0.5 mg INHALE RQ4H WHILE AWAKE [facility] Last Admin: 06/18/22 07:57 Dose: Not Given Documented By: LIV Non-Admin Reason: See Note Levalbuterol HCl (Levalbuterol Hcl 1.25 Mg/3 Ml Vial.Neb) 1.25 mg INHALE RQ4H WHILE AWAKE [facility] Last Admin: 06/18/22 07:57 Dose: Not Given Documented By: LIV Non-Admin Reason: See Note Levalbuterol HCl (Levalbuterol Hcl 1.25 Mg/3 Ml Vial.Neb) 1.25 mg INHALE Q2H PRN PRN Reason: wheeze/dyspnea Metoprolol Tartrate (Metoprolol Tartrate 25 Mg Tablet) 25 mg PO BID [facility]; Protocol Last Admin: 06/18/22 09:26 Dose: 25 mg Documented By: JEEVAN Nystatin (Nystatin Powder 15 Gm Bottle) 1 appl TOPICAL TID [facility]; Protocol Last Admin: 06/17/22 20:38 Dose: 1 appl Documented By: EDEN Ondansetron HCl (Ondansetron Hcl 4 Mg/2 Ml Vial) 4 mg IVPUSH Q8H PRN PRN Reason: Nausea and Vomiting Pharmacy Consult (Consult Rx Perform Med Rec) 1 each MISCELLANE ONCE PRN PRN Reason: Consult order Potassium Chloride (Potassium Chloride Er 20 Meq Tab.Er.Prt) 20 meq PO ONCE ONE Stop: 06/18/22 09:32 Potassium Chloride (Potassium Chloride Packet 20 Meq Packet) 40 meq PO ONCE ONE Stop: 06/18/22 09:33 Potassium Chloride (Potassium Chloride Er 20 Meq Tab.Er.Prt) 40 meq PO ONCE ONE Stop: 06/18/22 17:33 Sodium Chloride (0.9 % Sodium Chloride Flush 3 Ml Syringe) 3 ml IVFLUSH QSHIFT [facility] Last Admin: 06/18/22 09:26 Dose: 3 ml Documented By: JEEVAN Labs 06/16/22 06:44 06/18/22 08:00 Labs: Laboratory Results - last 24 hr 06/17/22 06/17/22 06/17/22 11:51 16:18 20:41 Anion Gap Estim Creat Clear Calc Estimated GFR POC Glucose 149 H 135 H 147 H Random Glucose Calcium B-Natriuretic Peptide 06/18/22 06/18/22 06/18/22 08:00 08:00 08:18 Anion Gap 12 Estim Creat Clear Calc 36.1 Estimated GFR 30 POC Glucose 151 H Random Glucose 158 H Calcium 8.1 L D B-Natriuretic Peptide 257 H Assessment and Plan (1) LETHA (acute kidney injury): Status: Acute Plan 76yo F with HTN, HLD, DM2, CAD, pAF on apixaban, chronic BLE weakness [uses motorized chair], anxiety, depression, chronic pain syndrome, CKD with bilateral hydroureteronephrosis admitted for acute metabolic encephalopathy, LETHA # paroxysmal AF/RVR - continue apixaban + metoprolol- diltiazem drip discontinued for RVR # Hypokalemia - repleted # acute HFpEF - compensated, monitor I/O + lytes # acute hypoxic resp failure - d/t above - wean O2 as tolerated # hypernatremia - improved with hypotonic fluids # acute toxic/metabolic encephalopathy - completed abx empiricaly for PNA, also suspect polypharmacy so d/c'ed quetiapine + gabapentin as she is on quite high doses # LETHA/CKD3 - SCr improved with [facility], likely obstructive uropathy, Nephrology following, Urology consulted- will need to d/c with [facility] and f/u as outpt to discuss SPC when medically stable - hold lisinopril-HCTZ # metabolic acidosis - resolved- # DM2 - continue correction-dose lispro # HTN - cotinue amlodipine + metoprolol - hold lisinopril-HCTZ as above # CAD - continue metoprolol + statin + ezetimibe # mood disorder - continue fluoxetine + duloxetine, d/c'ed quetiapine as above # chronic pain - d/c'ed gabapentin as above # chest wall pain - troponin + EKG unremarkable # VTE ppx: apixaban # dispo: TBD In my clinical judgment, the patient requires continued inpatient hospitali zation for the following reasons: encephalopathy, LETHA, monitor HR Time Spent With Patient Time: Total time managing care of this patient today ____ minutes. Quality Stroke Does the patient have a stroke diagnosis?: No VTE Prior VTE?: No VTE Risk Level:: Medical - moderate - high VTE Device Contraindication: Treatment Not Indicated VTE Drug Contraindication: N/A - Med Ordered
[2022-06-18] MEDS: Nystatin Powder 15 GM BOTTLE 1 APPL TOPICAL ×3 (09:39→22:46)
[2022-06-18] MEDS: Potassium Chloride Packet 20 MEQ PACKET PO (11:03)
[2022-06-18] MEDS: Potassium Chloride Packet 20 MEQ PACKET 40 MEQ PO (11:03)
[2022-06-18 11:39] LABS: Glucose, Whole Blood 164 mg/dL (60-115)
--- NOTE | 2022-06-18 15:24 | PM.PNNEP ---
Subjective Subjective Date of Service: 06/19/22 Interval history: Patient is comfortable and awake Physical Exam Vital Signs: Vital Signs: Last Vital Signs Temp 97 F 06/18/22 11:51 Pulse 69 06/18/22 11:51 Resp 17 06/18/22 11:51 BP 132/88 06/18/22 11:51 Pulse Ox 97 06/18/22 11:51 O2 Del Method Nasal Cannula 06/18/22 11:51 O2 Flow Rate 2 06/18/22 11:51 BMI result Body Mass Index 48.2 Const: Other: General awake alert x3,no acute distress.? Neck? no JVD. CVS? regular rate rhythm, Respiratory lungs clear to auscultation, no respiratory distress, no wheeze, no rhonchi. Gastrointestinal abdomen soft, obese, nontender, bowel sounds audible No chest wall tenderness, no redness, no tenderness, good range of motion left shoulder. Extremities no? edema Back no CVA tenderness Neuro nonfocal, speech clear Psych appropriate affect Objective Data Labs 06/16/22 06:44 06/18/22 08:00 Labs: Laboratory Results - last 24 hr 06/17/22 06/17/22 06/18/22 16:18 20:41 08:00 Sodium 147 H Potassium 2.9 L Chloride 112 H Carbon Dioxide 26 Anion Gap 12 BUN 44 H Creatinine 1.68 H Estim Creat Clear Calc 36.1 Estimated GFR 30 POC Glucose 135 H 147 H Random Glucose 158 H Calcium 8.1 L D B-Natriuretic Peptide 06/18/22 06/18/22 06/18/22 08:00 08:18 11:28 Sodium Potassium Chloride Carbon Dioxide Anion Gap BUN Creatinine Estim Creat Clear Calc Estimated GFR POC Glucose 151 H 164 H Random Glucose Calcium B-Natriuretic Peptide 257 H Microbiology Microbiology Results: Microbiology 06/09/22 16:18 Blood - Venous Blood Culture - Final No growth after 5 days. 06/09/22 16:06 Blood - Venous Blood Culture - Final No growth after 5 days. 06/09/22 19:05 Urine clean catch - Urine [place] top Urine Culture - Final Jennifer parapsilosis Procedures Date of Service Date of Service: 06/19/22 Assessment & Plan Assessment and plan (1) LETHA (acute kidney injury): Status: Acute Plan Acute kidney injury superimposed on chronic kidney disease with severe hyperkalemia primarily due to obstructive uropathy/urinary retention. She could have superimposed tubular injury. No reason to believe she has any active glomerulonephritis at this time. Obstructive uropathy. Anemia without thrombocytopenia. Hyperchloremic metabolic acidosis. Hypernatremia due to free water deficit. Probably worsened by use of loop diuretic. Recommendations Hold diuretics Free water F/u Na levels Keep Solis catheter. Urology f/u Replace K / Check Mag level and replace Continued to avoid nephrotoxic agents. Follow renal function closely. . We will follow her along upon DC Time Spent With Patient Time: Total time managing care of this patient today ____ minutes. Progress Note: Quality Stroke Does the patient have a stroke diagnosis?: No
[2022-06-18 16:24] LABS: Glucose, Whole Blood 137 mg/dL (60-115)
[2022-06-18] MEDS: Acetaminophen 325 MG TABLET 650 MG PO (16:52)
[2022-06-18 20:57] LABS: Glucose, Whole Blood 142 mg/dL (60-115)
[2022-06-18] MEDS: Atorvastatin Calcium 80 MG TABLET PO (22:45)
[2022-06-19] VITALS (9 sets, daily range): BP systolic 125–141; BP diastolic 58–71; PULSE 61–108; RESP 13–20; TEMP 36.1–36.7; O2SAT 94–100
[2022-06-19 06:31] LABS: MANUAL DIFF FLAG NO
[2022-06-19 06:50] LABS: Basophils Percent Auto 0.3 % (0-2); Eosinophils Absolute Auto 0.3 X10*3/uL (0.0-0.4); Eosinophils Percent Auto 2.4 % (0-4); Hematocrit 28.8 % (37.0-47.0); Hemoglobin 8.7 g/dl (12.0-16.0); Imm Gran Abs Auto 0.05 X10*3/uL (0.00-0.03); Imm Gran Pct Auto 0.4 % (0.0-0.4); Lymphocytes Absolute Auto 1.3 X10*3/uL (1.2-4.9); Lymphocytes Percent Auto 10.9 % (20-40); Mean Corpuscular HGB Conc 30.2 g/dl (31.0-35.0); Mean Corpuscular Hemoglobin 30.2 pg (27.0-33.0); Mean Platelet Volume 10.9 fL (9.4-12.3); Monocytes Absolute Auto 0.8 X10*3/uL (0.1-1.2); Monocytes Percent Auto 7.2 % (2-11); Neutrophils Percent Auto 78.8 % (45-73); Platelet Count 282 X10*3/uL (160-400); Red Blood Count 2.88 X10*6/uL (4.20-5.50); Red Cell Distribution Width 14.6 % (11.0-16.0); White Blood Count 11.5 X10*3/uL (4.8-10.8)
[2022-06-19 07:06] LABS: Anion Gap 13 (12-20); Blood Urea Nitrogen 51 mg/dL (9-16); Calcium 8.1 mg/dL (8.4-10.2); Carbon Dioxide 25 mmol/L (22-29); Chloride 115 mmol/L (96-108); Creatinine Clr Calc Pharmacy 43.6; Estimated Glomerular Filt Rate 37; Glucose Random 129 mg/dL (60-115); Potassium 3.6 mmol/L (3.3-5.1); Sodium 149 mmol/L (135-145)
[2022-06-19 07:24] LABS: Glucose, Whole Blood 130 mg/dL (60-115)
[2022-06-19] MEDS: Ipratropium Bromide 0.5 MG/2.5 ML SOLUTION INHALE ×2 (07:38→18:50)
[2022-06-19] MEDS: levalbuterol HCL 1.25 MG/3 ML VIAL.NEB INHALE ×2 (07:38→18:50)
[2022-06-19] MEDS: Metoprolol Tartrate 25 MG TABLET PO ×2 (08:53→21:11)
[2022-06-19] MEDS: Ferrous Sulfate 324 MG TABLET.DR PO (08:53)
[2022-06-19] MEDS: Ezetimibe 10 MG TABLET PO (08:54)
[2022-06-19] MEDS: Apixaban 5 MG TABLET PO ×2 (08:54→21:11)
[2022-06-19] MEDS: 0.9 % Sodium Chloride Flush 3 ML SYRINGE IVFLUSH ×3 (08:54→21:12)
[2022-06-19] MEDS: FLUoxetine HCl 20 MG CAPSULE PO (08:54)
[2022-06-19] MEDS: Nystatin Powder 15 GM BOTTLE 1 APPL TOPICAL ×3 (08:56→21:12)
--- NOTE | 2022-06-19 10:33 | P.PNIM_ITS ---
Subjective Subjective Date of Service: 06/19/22 Interval History: No significant nursing events overnight. Patient is calm and oriented this am although lethargic HR is better, diltiazem drip discontinued. Cardiovascular Cardiovascular: Reports no additional cardiovascular complaints Respiratory Respiratory: Reports no additional respiratory complaints Physical Exam Vital Signs: Vital Signs: Last Vital Signs Temp 97.0 F 06/19/22 08:00 Pulse 83 06/19/22 08:00 Resp 20 06/19/22 08:00 BP 141/71 H 06/19/22 08:00 Pulse Ox 100 06/19/22 08:00 O2 Del Method CPAP 06/19/22 08:00 O2 Flow Rate 1 06/18/22 23:50 FiO2 35 06/19/22 03:57 BMI result Body Mass Index 48.2 Const: Other: General awake alert x2,no acute distress.? Neck? no JVD. CVS? regular rate rhythm, Respiratory decreased breath sounds Gastrointestinal abdomen soft, obese, nontender, bowel sounds audible No chest wall tenderness, no redness, no tenderness, good range of motion left shoulder. Extremities no? edema Back no CVA tenderness Neuro nonfocal, speech clear Psych appropriate affect Objective Data Active Medications Acetaminophen (Acetaminophen 325 Mg Tablet) 650 mg PO Q6H PRN PRN Reason: Pain, Mild (Pain Scale 1-3) Last Admin: 06/18/22 16:52 Dose: 650 mg Documented By: JEEVAN Apixaban (Apixaban 5 Mg Tablet) 5 mg PO BID [facility] Last Admin: 06/19/22 08:54 Dose: 5 mg Documented By: JEEVAN Atorvastatin Calcium (Atorvastatin Calcium 80 Mg Tablet) 80 mg PO BEDTIME [facility] Last Admin: 06/18/22 22:45 Dose: 80 mg Documented By: EDEN Docusate Sodium (Docusate Sodium 100 Mg Capsule) 100 mg PO DAILY PRN PRN Reason: Constipation Ezetimibe (Ezetimibe 10 Mg Tablet) 10 mg PO DAILY [facility] Last Admin: 06/19/22 08:54 Dose: 10 mg Documented By: JEEVAN Ferrous Sulfate (Ferrous Sulfate 324 Mg Tablet.Dr) 324 mg PO DAILY [facility] Last Admin: 06/19/22 08:53 Dose: 324 mg Documented By: JEEVAN Fluoxetine HCl (Fluoxetine Hcl 20 Mg Capsule) 20 mg PO DAILY [facility] Last Admin: 06/19/22 08:54 Dose: 20 mg Documented By: JEEVAN Glucose (Glucose Gel 15 Gm Gel..Gram.) 15 gm PO Q15M PRN; Protocol PRN Reason: per Hypoglycemia Standing Ord. Dextrose (D10) 250 mls @ 750 mls/hr IV Q15M PRN; Protocol PRN Reason: per Hypoglycemia Standing Ord. Insulin Human Lispro (Insulin Lispro 100 Unit/Ml 3 Ml Vial) 0 unit SUBCUT QIDACHS [facility]; Protocol Last Admin: 06/19/22 07:47 Dose: Not Given Documented By: JEEVAN Non-Admin Reason: No Insulin Coverage Ipratropium [place] (Ipratropium [place] 0.5 Mg/2.5 Ml Solution) 0.5 mg INHALE RQ4H WHILE AWAKE [facility] Last Admin: 06/19/22 07:38 Dose: 0.5 mg Documented By: LIV Levalbuterol HCl (Levalbuterol Hcl 1.25 Mg/3 Ml Vial.Neb) 1.25 mg INHALE RQ4H WHILE AWAKE [facility] Last Admin: 06/19/22 07:38 Dose: 1.25 mg Documented By: LIV Levalbuterol HCl (Levalbuterol Hcl 1.25 Mg/3 Ml Vial.Neb) 1.25 mg INHALE Q2H PRN PRN Reason: wheeze/dyspnea Metoprolol Tartrate (Metoprolol Tartrate 25 Mg Tablet) 25 mg PO BID [facility]; Protocol Last Admin: 06/19/22 08:53 Dose: 25 mg Documented By: JEEVAN Nystatin (Nystatin Powder 15 Gm Bottle) 1 appl TOPICAL TID [facility]; Protocol Last Admin: 06/19/22 08:56 Dose: 1 appl Documented By: JEEAVN Ondansetron HCl (Ondansetron Hcl 4 Mg/2 Ml Vial) 4 mg IVPUSH Q8H PRN PRN Reason: Nausea and Vomiting Pharmacy Consult (Consult Rx Perform Med Rec) 1 each MISCELLANE ONCE PRN PRN Reason: Consult order Sodium Chloride (0.9 % Sodium Chloride Flush 3 Ml Syringe) 3 ml IVFLUSH QSHIFT [facility] Last Admin: 06/19/22 08:54 Dose: 3 ml Documented By: JEEVAN Labs 06/19/22 06:04 06/19/22 06:04 Labs: Laboratory Results - last 24 hr 06/18/22 06/18/22 06/18/22 11:28 16:19 20:49 MCV MCH MCHC RDW Plt Count MPV Immature Gran % (Auto) Neut % (Auto) Lymph % (Auto) [place] % (Auto) Eos % (Auto) Baso % (Auto) Lymph # (Auto) [place] # (Auto) Eos # (Auto) Baso # (Auto) Abs Immat Gran (auto) Absolute Neuts (auto) Absolute Nucleated RBC Nucleated RBC % (auto) Anion Gap Estim Creat Clear Calc Estimated GFR POC Glucose 164 H 137 H 142 H Random Glucose Calcium 06/19/22 06/19/22 06/19/22 06:04 06:04 07:20 MCV 100.0 H MCH 30.2 MCHC 30.2 L RDW 14.6 Plt Count 282 MPV 10.9 Immature Gran % (Auto) 0.4 Neut % (Auto) 78.8 H Lymph % (Auto) 10.9 L [place] % (Auto) 7.2 Eos % (Auto) 2.4 Baso % (Auto) 0.3 Lymph # (Auto) 1.3 [place] # (Auto) 0.8 Eos # (Auto) 0.3 Baso # (Auto) 0.0 Abs Immat Gran (auto) 0.05 H Absolute Neuts (auto) 9.0 H Absolute Nucleated RBC 0.000 Nucleated RBC % (auto) 0.0 Anion Gap 13 Estim Creat Clear Calc 43.6 Estimated GFR 37 POC Glucose 130 H Random Glucose 129 H Calcium 8.1 L Assessment and Plan (1) Hypoxia: Status: Acute Plan 76yo F with HTN, HLD, DM2, CAD, pAF on apixaban, chronic BLE weakness [uses motorized chair], anxiety, depression, chronic pain syndrome, CKD with bilateral hydroureteronephrosis admitted for acute metabolic encephalopathy, LETHA # Weakness due to prolonged hospitalization: Will consult PT to evaluate and treat for safe disposition # acute HFpEF - compensated, monitor I/O + lytes -lasix held as per nephrology # acute hypoxic resp failure - d/t above - wean O2 as tolerated # paroxysmal AF/RVR - continue apixaban + metoprolol- diltiazem drip discontinued -continue to monitor hr # Hypokalemia - repleted # hypernatremia - improving with hypotonic fluids, renal following # acute toxic/metabolic encephalopathy - completed abx empiricaly for PNA, also suspect hypoxia + polypharmacy so d/c'ed quetiapine + gabapentin. -improving # LETHA/CKD3 - SCr improved with [facility], likely obstructive uropathy, Nephrology following, Urology consulted- will need to d/c with [facility] and f/u as outpt to discuss SPC when medically stable - hold lisinopril-HCTZ # metabolic acidosis - resolved- # DM2 - continue correction-dose lispro # HTN - cotinue amlodipine + metoprolol - hold lisinopril-HCTZ as above # CAD - continue metoprolol + statin + ezetimibe # mood disorder - continue fluoxetine + duloxetine, d/c'ed quetiapine as above # chronic pain - d/c'ed gabapentin as above # chest wall pain - troponin + EKG unremarkable # VTE ppx: apixaban # dispo: TBD In my clinical judgment, the patient requires continued inpatient hospitalization for the following reasons: supplemental o2, monitor HR + lytes, PT eval pending Time Spent With Patient Time: Total time managing care of this patient today ____ minutes. Quality Stroke Does the patient have a stroke diagnosis?: No VTE Prior VTE?: No VTE Risk Level:: Medical - moderate - high VTE Device Contraindication: Treatment Not Indicated VTE Drug Contraindication: N/A - Med Ordered
[2022-06-19 12:00] LABS: Glucose, Whole Blood 166 mg/dL (60-115)
[2022-06-19 16:13] LABS: Glucose, Whole Blood 106 mg/dL (60-115)
[2022-06-19 21:00] LABS: Glucose, Whole Blood 172 mg/dL (60-115)
[2022-06-19] MEDS: Atorvastatin Calcium 80 MG TABLET PO (21:11)
[2022-06-19] MEDS: Insulin Lispro 100 UNIT/ML 3 ML VIAL SUBCUT (21:11)
[2022-06-19] MEDS: Acetaminophen 325 MG TABLET 650 MG PO (21:12)
[2022-06-20] VITALS (12 sets, daily range): BP systolic 103–126; BP diastolic 56–69; PULSE 62–89; RESP 18–20; TEMP 36.2–36.8; O2SAT 93–100
[2022-06-20] MEDS: Ipratropium Bromide 0.5 MG/2.5 ML SOLUTION INHALE ×3 (07:31→19:20)
[2022-06-20] MEDS: levalbuterol HCL 1.25 MG/3 ML VIAL.NEB INHALE ×3 (07:32→19:20)
[2022-06-20 07:46] LABS: MANUAL DIFF FLAG NO
[2022-06-20 07:50] LABS: Basophils Percent Auto 0.3 % (0-2); Eosinophils Absolute Auto 0.3 X10*3/uL (0.0-0.4); Eosinophils Percent Auto 2.8 % (0-4); Hematocrit 27.9 % (37.0-47.0); Hemoglobin 8.3 g/dl (12.0-16.0); Imm Gran Abs Auto 0.04 X10*3/uL (0.00-0.03); Imm Gran Pct Auto 0.4 % (0.0-0.4); Lymphocytes Absolute Auto 1.5 X10*3/uL (1.2-4.9); Lymphocytes Percent Auto 14.3 % (20-40); Mean Corpuscular HGB Conc 29.7 g/dl (31.0-35.0); Mean Corpuscular Volume 100.7 fL (80.0-98.0); Mean Platelet Volume 11.1 fL (9.4-12.3); Monocytes Absolute Auto 0.7 X10*3/uL (0.1-1.2); Monocytes Percent Auto 6.8 % (2-11); Neutrophils Absolute Auto 7.9 x10*3/uL (2.0-8.3); Neutrophils Percent Auto 75.4 % (45-73); Platelet Count 292 X10*3/uL (160-400); Red Blood Count 2.77 X10*6/uL (4.20-5.50); Red Cell Distribution Width 14.6 % (11.0-16.0); White Blood Count 10.5 X10*3/uL (4.8-10.8)
[2022-06-20 08:01] LABS: Anion Gap 11 (12-20); Blood Urea Nitrogen 41 mg/dL (9-16); Calcium 8.3 mg/dL (8.4-10.2); Carbon Dioxide 28 mmol/L (22-29); Chloride 115 mmol/L (96-108); Creatinine Clr Calc Pharmacy 43.4; Estimated Glomerular Filt Rate 37; Glucose Random 127 mg/dL (60-115); Potassium 3.2 mmol/L (3.3-5.1); Sodium 151 mmol/L (135-145)
[2022-06-20] MEDS: 0.9 % Sodium Chloride Flush 3 ML SYRINGE IVFLUSH ×2 (08:32→21:59)
[2022-06-20] MEDS: Acetaminophen 325 MG TABLET 650 MG PO (08:33)
[2022-06-20] MEDS: Metoprolol Tartrate 25 MG TABLET PO ×2 (08:36→21:59)
[2022-06-20] MEDS: Ezetimibe 10 MG TABLET PO (08:36)
[2022-06-20] MEDS: Apixaban 5 MG TABLET PO ×2 (08:37→21:59)
[2022-06-20] MEDS: Ferrous Sulfate 324 MG TABLET.DR PO (08:37)
[2022-06-20] MEDS: FLUoxetine HCl 20 MG CAPSULE PO (08:37)
[2022-06-20] MEDS: Nystatin Powder 15 GM BOTTLE 1 APPL TOPICAL ×2 (08:39→21:59)
--- NOTE | 2022-06-20 10:22 | MHC.CM.PN ---
Per ROUNDS discussion, Patient is not yet medically cleared for dc and may benefit from a PT eval to assist with disposition. CM will follow.
--- NOTE | 2022-06-20 11:15 | PC.NURSE ---
Assumed care of patient at this time.
--- NOTE | 2022-06-20 11:28 | P.PNIM_ITS ---
Subjective Subjective Date of Service: 06/20/22 Physical Exam Vital Signs: Vital Signs: Last Vital Signs Temp 97.6 F 06/20/22 07:53 Pulse 85 06/20/22 10:09 Resp 20 06/20/22 07:53 BP 115/56 L 06/20/22 10:09 Pulse Ox 100 06/20/22 10:09 O2 Del Method Nasal Cannula 06/20/22 07:53 O2 Flow Rate 3 06/20/22 07:53 FiO2 35 06/19/22 03:57 BMI result Body Mass Index 48.2 Const: Other: General awake alert x2,no acute distress.? Neck? no JVD. CVS? regular rate rhythm, Respiratory decreased breath sounds Gastrointestinal abdomen soft, obese, nontender, bowel sounds audible No chest wall tenderness, no redness, no tenderness, good range of motion left shoulder. Extremities no? edema Back no CVA tenderness Neuro nonfocal, speech clear Psych appropriate affect Objective Data Active Medications Acetaminophen (Acetaminophen 325 Mg Tablet) 650 mg PO Q6H PRN PRN Reason: Pain, Mild (Pain Scale 1-3) Last Admin: 06/20/22 08:33 Dose: 650 mg Documented By: CRICKET Apixaban (Apixaban 5 Mg Tablet) 5 mg PO BID [facility] Last Admin: 06/20/22 08:37 Dose: 5 mg Documented By: CRICKET Atorvastatin Calcium (Atorvastatin Calcium 80 Mg Tablet) 80 mg PO BEDTIME [facility] Last Admin: 06/19/22 21:11 Dose: 80 mg Documented By: JOSIE Docusate Sodium (Docusate Sodium 100 Mg Capsule) 100 mg PO DAILY PRN PRN Reason: Constipation Ezetimibe (Ezetimibe 10 Mg Tablet) 10 mg PO DAILY [facility] Last Admin: 06/20/22 08:36 Dose: 10 mg Documented By: CRICKET Ferrous Sulfate (Ferrous Sulfate 324 Mg Tablet.Dr) 324 mg PO DAILY [facility] Last Admin: 06/20/22 08:37 Dose: 324 mg Documented By: CRICKET Fluoxetine HCl (Fluoxetine Hcl 20 Mg Capsule) 20 mg PO DAILY [facility] Last Admin: 06/20/22 08:37 Dose: 20 mg Documented By: CRICKET Glucose (Glucose Gel 15 Gm Gel..Gram.) 15 gm PO Q15M PRN; Protocol PRN Reason: per Hypoglycemia Standing Ord. Dextrose (D10) 250 mls @ 750 mls/hr IV Q15M PRN; Protocol PRN Reason: per Hypoglycemia Standing Ord. Insulin Human Lispro (Insulin Lispro 100 Unit/Ml 3 Ml Vial) 0 unit SUBCUT QIDACHS [facility]; Protocol Last Admin: 06/20/22 08:31 Dose: Not Given Documented By: CRICKET Non-Admin Reason: No Insulin Coverage Ipratropium [place] (Ipratropium [place] 0.5 Mg/2.5 Ml Solution) 0.5 mg INHALE RQ4H WHILE AWAKE [facility] Last Admin: 06/20/22 11:27 Dose: Not Given Documented By: LATOYA Non-Admin Reason: Patient Refused Levalbuterol HCl (Levalbuterol Hcl 1.25 Mg/3 Ml Vial.Neb) 1.25 mg INHALE RQ4H WHILE AWAKE [facility] Last Admin: 06/20/22 11:27 Dose: Not Given Documented By: LATOYA Non-Admin Reason: refused/wants to sleep Levalbuterol HCl (Levalbuterol Hcl 1.25 Mg/3 Ml Vial.Neb) 1.25 mg INHALE Q2H PRN PRN Reason: wheeze/dyspnea Metoprolol Tartrate (Metoprolol Tartrate 25 Mg Tablet) 25 mg PO BID [facility]; Protocol Last Admin: 06/20/22 08:36 Dose: 25 mg Documented By: CRICKET Nystatin (Nystatin Powder 15 Gm Bottle) 1 appl TOPICAL TID [facility]; Protocol Last Admin: 06/20/22 08:39 Dose: 1 appl Documented By: CRICKET Ondansetron HCl (Ondansetron Hcl 4 Mg/2 Ml Vial) 4 mg IVPUSH Q8H PRN PRN Reason: Nausea and Vomiting Pharmacy Consult (Consult Rx Perform Med Rec) 1 each MISCELLANE ONCE PRN PRN Reason: Consult order Sodium Chloride (0.9 % Sodium Chloride Flush 3 Ml Syringe) 3 ml IVFLUSH QSHIFT [facility] Last Admin: 06/20/22 08:32 Dose: 3 ml Documented By: CRICKET Labs 06/20/22 07:25 06/20/22 07:25 Labs: Laboratory Results - last 24 hr 06/19/22 06/19/22 06/19/22 11:56 16:09 20:41 MCV MCH MCHC RDW Plt Count MPV Immature Gran % (Auto) Neut % (Auto) Lymph % (Auto) [place] % (Auto) Eos % (Auto) Baso % (Auto) Lymph # (Auto) [place] # (Auto) Eos # (Auto) Baso # (Auto) Abs Immat Gran (auto) Absolute Neuts (auto) Absolute Nucleated RBC Nucleated RBC % (auto) Anion Gap Estim Creat Clear Calc Estimated GFR POC Glucose 166 H 106 172 H Random Glucose Calcium 06/20/22 06/20/22 07:25 07:25 MCV 100.7 H MCH 30.0 MCHC 29.7 L RDW 14.6 Plt Count 292 MPV 11.1 Immature Gran % (Auto) 0.4 Neut % (Auto) 75.4 H Lymph % (Auto) 14.3 L [place] % (Auto) 6.8 Eos % (Auto) 2.8 Baso % (Auto) 0.3 Lymph # (Auto) 1.5 [place] # (Auto) 0.7 Eos # (Auto) 0.3 Baso # (Auto) 0.0 Abs Immat Gran (auto) 0.04 H Absolute Neuts (auto) 7.9 Absolute Nucleated RBC 0.000 Nucleated RBC % (auto) 0.0 Anion Gap 11 L Estim Creat Clear Calc 43.4 Estimated GFR 37 POC Glucose Random Glucose 127 H Calcium 8.3 L Assessment and Plan (1) Hypoxia: Status: Acute Plan 76yo F with HTN, HLD, DM2, CAD, pAF on apixaban, chronic BLE weakness [uses motorized chair], anxiety, depression, chronic pain syndrome, CKD with bilateral hydroureteronephrosis admitted for acute metabolic encephalopathy, LETHA # Weakness due to prolonged hospitalization: PT to evaluate and treat for safe disposition # acute HFpEF - compensated, monitor I/O + lytes -lasix held as per nephrology # acute hypoxic resp failure - d/t above - wean O2 as tolerated # paroxysmal AF/RVR - continue apixaban + metoprolol- diltiazem drip discontinued -continue to monitor hr # Hypokalemia - repleted and better but still low # hypernatremia -Worse today at 151, need free water, will discuss with Nephrology, will # acute toxic/metabolic encephalopathy - completed abx empiricaly for PNA, also suspect hypoxia + polypharmacy so d/c'ed quetiapine + gabapentin. -markedly improved and is at baseline mental status according to daughter at bedside # LETHA/CKD3 - SCr improved with [facility], likely obstructive uropathy, Nephrology following, Urology consulted- will need to d/c with [facility] and f/u as outpt to discuss SPC when medically stable - hold lisinopril-HCTZ # DM2 - continue correction-dose lispro # HTN - cotinue amlodipine + metoprolol - hold lisinopril-HCTZ as above # CAD - continue metoprolol + statin + ezetimibe # mood disorder - continue fluoxetine + duloxetine, d/c'ed quetiapine as above # chronic pain - d/c'ed gabapentin as above # chest wall pain - troponin + EKG unremarkable # VTE ppx: apixaban # dispo: TBD In my clinical judgment, the patient requires continued inpatient hospitalization for the following reasons: supplemental o2, monitor HR + lytes, PT eval pending Time Spent With Patient Time: Total time managing care of this patient today ____ minutes. Quality Stroke Does the patient have a stroke diagnosis?: No VTE Prior VTE?: No VTE Risk Level:: Medical - moderate - high VTE Device Contraindication: Treatment Not Indicated VTE Drug Contraindication: N/A - Med Ordered
[2022-06-20 11:46] LABS: Glucose, Whole Blood 129 mg/dL (60-115)
[2022-06-20 11:46] LABS: Glucose, Whole Blood 138 mg/dL (60-115)
--- NOTE | 2022-06-20 14:55 | PC.NURSE ---
Assumed care at 07:00. Patient alert and oriented, speaks Canadian and Persian. Communicated with patient in [place] and Persian and also brought interpretter in, but patient and her daughter preferred to not use interpretter. Patient reported she has a strong throbbing headache, superior and lateral to right eye orbital. Given tylenol (ordered for 1-3/10 pain) Patient did not quantify pain numerically. She said she would let the nurse know if it still hurt afterward. NO dizziness. Serum sodium was 151 and her potassium 3.2 this morning, notified.
--- NOTE | 2022-06-20 16:24 | PM.PNNEP ---
Subjective Subjective Date of Service: 06/20/22 Interval history: Seen and examiend, events ntoed diarrhea noted by RNs notes Physical Exam Vital Signs: Vital Signs: Last Vital Signs Temp 97.2 F 06/20/22 15:30 Pulse 72 06/20/22 15:30 Resp 20 06/20/22 15:30 BP 117/69 06/20/22 15:30 Pulse Ox 93 06/20/22 15:30 O2 Del Method Room Air 06/20/22 15:30 O2 Flow Rate 2 06/20/22 11:38 FiO2 35 06/19/22 03:57 BMI result Body Mass Index 48.2 Const: Other: General awake alert x3,no acute distress.? Neck? no JVD. CVS? regular rate rhythm, Respiratory lungs clear to auscultation, no respiratory distress, no wheeze, no rhonchi. Gastrointestinal abdomen soft, obese, nontender, bowel sounds audible No chest wall tenderness, no redness, no tenderness, good range of motion left shoulder. Extremities no? edema Back no CVA tenderness Neuro nonfocal, speech clear Psych appropriate affect Objective Data Labs 06/20/22 07:25 06/20/22 07:25 Labs: Laboratory Results - last 24 hr 06/19/22 06/20/22 06/20/22 20:41 07:25 07:25 WBC 10.5 RBC 2.77 L Hgb 8.3 L Hct 27.9 L MCV 100.7 H MCH 30.0 MCHC 29.7 L RDW 14.6 Plt Count 292 MPV 11.1 Immature Gran % (Auto) 0.4 Neut % (Auto) 75.4 H Lymph % (Auto) 14.3 L [place] % (Auto) 6.8 Eos % (Auto) 2.8 Baso % (Auto) 0.3 Lymph # (Auto) 1.5 [place] # (Auto) 0.7 Eos # (Auto) 0.3 Baso # (Auto) 0.0 Abs Immat Gran (auto) 0.04 H Absolute Neuts (auto) 7.9 Absolute Nucleated RBC 0.000 Nucleated RBC % (auto) 0.0 Sodium 151 H Potassium 3.2 L Chloride 115 H Carbon Dioxide 28 Anion Gap 11 L BUN 41 H Creatinine 1.40 Estim Creat Clear Calc 43.4 Estimated GFR 37 POC Glucose 172 H Random Glucose 127 H Calcium 8.3 L 06/20/22 06/20/22 07:56 11:41 WBC RBC Hgb Hct MCV MCH MCHC RDW Plt Count MPV Immature Gran % (Auto) Neut % (Auto) Lymph % (Auto) [place] % (Auto) Eos % (Auto) Baso % (Auto) Lymph # (Auto) [place] # (Auto) Eos # (Auto) Baso # (Auto) Abs Immat Gran (auto) Absolute Neuts (auto) Absolute Nucleated RBC Nucleated RBC % (auto) Sodium Potassium Chloride Carbon Dioxide Anion Gap BUN Creatinine Estim Creat Clear Calc Estimated GFR POC Glucose 138 H 129 H Random Glucose Calcium Microbiology Microbiology Results: Microbiology 06/09/22 16:18 Blood - Venous Blood Culture - Final No growth after 5 days. 06/09/22 16:06 Blood - Venous Blood Culture - Final No growth after 5 days. 06/09/22 19:05 Urine clean catch - Urine [place] top Urine Culture - Final Jennifer parapsilosis Procedures Date of Service Date of Service: 06/20/22 Assessment & Plan Assessment and plan (1) LETHA (acute kidney injury): Status: Acute Plan - LETHA: peak SCr 3.65; resolved with [facility] c/w Obs uropathy ( known to Urol); will need chroni belcher as PT/family unable to ST cath - CKD 3: BSL Scr 1.2-1.4 -HyperNa: d/t combination of LETHA and inability to conc urne, poor PO intake and diarrhea REC: cont to encourage incr PO intake and start IV hypotonic fluid; need chronic belcher Time Spent With Patient Time: Total time managing care of this patient today ____ minutes. Progress Note: Quality Stroke Does the patient have a stroke diagnosis?: No
[2022-06-20 17:01] LABS: Glucose, Whole Blood 135 mg/dL (60-115)
[2022-06-20 22:17] LABS: Glucose, Whole Blood 168 mg/dL (60-115)
[2022-06-20] MEDS: Insulin Lispro 100 UNIT/ML 3 ML VIAL SUBCUT (22:32)
[2022-06-21] VITALS (10 sets, daily range): BP systolic 98–149; BP diastolic 51–77; PULSE 55–78; RESP 17–20; TEMP 36.1–36.8; O2SAT 95–100
[2022-06-21] MEDS: 0.9 % Sodium Chloride Flush 3 ML SYRINGE IVFLUSH ×3 (00:15→15:17)
[2022-06-21 07:33] LABS: Glucose, Whole Blood 112 mg/dL (60-115)
[2022-06-21] MEDS: levalbuterol HCL 1.25 MG/3 ML VIAL.NEB INHALE ×3 (07:37→19:59)
[2022-06-21] MEDS: Ipratropium Bromide 0.5 MG/2.5 ML SOLUTION INHALE ×3 (07:37→19:59)
[2022-06-21] MEDS: Apixaban 5 MG TABLET PO ×2 (09:29→20:40)
[2022-06-21] MEDS: FLUoxetine HCl 20 MG CAPSULE PO (09:31)
[2022-06-21] MEDS: Ferrous Sulfate 324 MG TABLET.DR PO (09:32)
[2022-06-21] MEDS: Nystatin Powder 15 GM BOTTLE 1 APPL TOPICAL ×3 (09:32→20:49)
[2022-06-21 11:30] LABS: Glucose, Whole Blood 115 mg/dL (60-115)
[2022-06-21 11:43] LABS: Anion Gap 17 (12-20); Blood Urea Nitrogen 35 mg/dL (9-16); Calcium 7.9 mg/dL (8.4-10.2); Carbon Dioxide 21 mmol/L (22-29); Chloride 116 mmol/L (96-108); Estimated Glomerular Filt Rate 39; Glucose Random 130 mg/dL (60-115); Potassium 3.8 mmol/L (3.3-5.1); Sodium 150 mmol/L (135-145)
--- NOTE | 2022-06-21 14:41 | P.PNIM_ITS ---
Subjective Subjective Date of Service: 06/22/22 Interval History: No new issues, continues to be lucid, not drinking enough water and some diarrhea sodium still high at 150 Physical Exam Vital Signs: Vital Signs: Last Vital Signs Temp 98.2 F 06/21/22 11:12 Pulse 75 06/21/22 11:37 Resp 20 06/21/22 11:37 BP 102/54 L 06/21/22 11:12 Pulse Ox 100 06/21/22 11:12 O2 Del Method Room Air 06/21/22 11:12 O2 Flow Rate 40 06/21/22 00:00 FiO2 35 06/19/22 03:57 BMI result Body Mass Index 48.2 Const: Other: General awake alert x2,no acute distress.? Neck? no JVD. CVS? regular rate rhythm, Respiratory lungs clear to auscultation, no respiratory distress, no wheeze, no rhonchi. Gastrointestinal abdomen soft, obese, nontender, bowel sounds audible No chest wall tenderness, no redness, no tenderness, good range of motion left shoulder. Extremities no? edema Back no CVA tenderness Neuro nonfocal, speech clear Psych appropriate affect Objective Data Active Medications Acetaminophen (Acetaminophen 325 Mg Tablet) 650 mg PO Q6H PRN PRN Reason: Pain, Mild (Pain Scale 1-3) Last Admin: 06/20/22 08:33 Dose: 650 mg Documented By: CRICKET Apixaban (Apixaban 5 Mg Tablet) 5 mg PO BID [facility] Last Admin: 06/21/22 09:29 Dose: 5 mg Documented By: JAYRO Atorvastatin Calcium (Atorvastatin Calcium 80 Mg Tablet) 80 mg PO BEDTIME [facility] Last Admin: 06/20/22 22:00 Dose: Not Given Documented By: JOSIE Non-Admin Reason: Allergy Docusate Sodium (Docusate Sodium 100 Mg Capsule) 100 mg PO DAILY PRN PRN Reason: Constipation Ezetimibe (Ezetimibe 10 Mg Tablet) 10 mg PO DAILY [facility] Last Admin: 06/21/22 09:30 Dose: Not Given Documented By: JAYRO Non-Admin Reason: Patient Refused Ferrous Sulfate (Ferrous Sulfate 324 Mg Tablet.) 324 mg PO DAILY [facility] Last Admin: 06/21/22 09:32 Dose: 324 mg Documented By: JAYRO Fluoxetine HCl (Fluoxetine Hcl 20 Mg Capsule) 20 mg PO DAILY [facility] Last Admin: 06/21/22 09:31 Dose: 20 mg Documented By: JAYRO Glucose (Glucose Gel 15 Gm Gel..Gram.) 15 gm PO Q15M PRN; Protocol PRN Reason: per Hypoglycemia Standing Ord. Dextrose (D10) 250 mls @ 750 mls/hr IV Q15M PRN; Protocol PRN Reason: per Hypoglycemia Standing Ord. Insulin Human Lispro (Insulin Lispro 100 Unit/Ml 3 Ml Vial) 0 unit SUBCUT QIDACHS [facility]; Protocol Last Admin: 06/21/22 11:38 Dose: Not Given Documented By: JAYRO Non-Admin Reason: No Insulin Coverage Ipratropium [place] (Ipratropium [place] 0.5 Mg/2.5 Ml Solution) 0.5 mg INHALE RQ4H WHILE AWAKE [facility] Last Admin: 06/21/22 11:37 Dose: 0.5 mg Documented By: LATOYA Levalbuterol HCl (Levalbuterol Hcl 1.25 Mg/3 Ml Vial.Neb) 1.25 mg INHALE RQ4H WHILE AWAKE [facility] Last Admin: 06/21/22 11:37 Dose: 1.25 mg Documented By: LATOYA Levalbuterol HCl (Levalbuterol Hcl 1.25 Mg/3 Ml Vial.Neb) 1.25 mg INHALE Q2H PRN PRN Reason: wheeze/dyspnea Metoprolol Tartrate (Metoprolol Tartrate 25 Mg Tablet) 25 mg PO BID [facility]; Protocol Last Admin: 06/21/22 09:31 Dose: 25 mg Documented By: JAYRO Nystatin (Nystatin Powder 15 Gm Bottle) 1 appl TOPICAL TID [facility]; Protocol Last Admin: 06/21/22 09:32 Dose: 1 appl Documented By: JAYRO Ondansetron HCl (Ondansetron Hcl 4 Mg/2 Ml Vial) 4 mg IVPUSH Q8H PRN PRN Reason: Nausea and Vomiting Pharmacy Consult (Consult Rx Perform Med Rec) 1 each MISCELLANE ONCE PRN PRN Reason: Consult order Sodium Chloride (0.9 % Sodium Chloride Flush 3 Ml Syringe) 3 ml IVFLUSH QSHIFT [facility] Last Admin: 06/21/22 09:32 Dose: 3 ml Documented By: JAYRO Labs 06/20/22 07:25 06/21/22 08:58 Labs: Laboratory Results - last 24 hr 06/20/22 06/20/22 06/21/22 16:54 21:49 07:30 Anion Gap Estim Creat Clear Calc Estimated GFR POC Glucose 135 H 168 H 112 Random Glucose Calcium 06/21/22 06/21/22 08:58 11:19 Anion Gap 17 Estim Creat Clear Calc 46.0 Estimated GFR 39 POC Glucose 115 Random Glucose 130 H Calcium 7.9 L Assessment and Plan (1) Hypoxia: Status: Acute Plan 76yo F with HTN, HLD, DM2, CAD, pAF on apixaban, chronic BLE weakness [uses motorized chair], anxiety, depression, chronic pain syndrome, CKD with bilateral hydroureteronephrosis admitted for acute metabolic encephalopathy, LETHA # Weakness due to prolonged hospitalization: PT recommends STR at DC # acute HFpEF - compensated, monitor I/O + lytes -lasix d/t high sodium, diarrhea # acute hypoxic resp failure - d/t above - wean O2 as tolerated # paroxysmal AF/RVR - continue apixaban + metoprolol- -continue to monitor hr # Hypokalemia - repleted, now 3.8 # hypernatremia -Worse today at 150, limited water intake, starting IV water l # acute toxic/metabolic encephalopathy - completed abx empiricaly for PNA, also suspect hypoxia + polypharmacy so d/c'ed quetiapine + gabapentin. -markedly improved and is at baseline mental status according to daughter at bedside # LETHA/CKD3 - SCr improved with [facility], likely obstructive uropathy, Nephrology following, Urology consulted- will need to d/c with [facility] and f/u as outpt to discuss SPC when medically stable - hold lisinopril-HCTZ # DM2 - continue correction-dose lispro # HTN - cotinue amlodipine + metoprolol - hold lisinopril-HCTZ as above # CAD - continue metoprolol + statin + ezetimibe # mood disorder - continue fluoxetine + duloxetine, d/c'ed quetiapine as above # chronic pain - d/c'ed gabapentin as above # chest wall pain - troponin + EKG unremarkable # VTE ppx: apixaban # dispo: TBD In my clinical judgment, the patient requires continued inpatient hospitalization for the following reasons: supplemental o2, monitor HR + lytes, PT eval pending Time Spent With Patient Time: Total time managing care of this patient today ____ minutes. Quality Stroke Does the patient have a stroke diagnosis?: No VTE Prior VTE?: No VTE Risk Level:: Medical - moderate - high VTE Device Contraindication: Treatment Not Indicated VTE Drug Contraindication: N/A - Med Ordered
[2022-06-21 16:14] LABS: Glucose, Whole Blood 146 mg/dL (60-115)
--- NOTE | 2022-06-21 16:37 | PM.PNNEP ---
Subjective Subjective Date of Service: 06/21/22 Interval history: Seen and examiend, eevnts noted Physical Exam Vital Signs: Vital Signs: Last Vital Signs Temp 98.0 F 06/21/22 15:13 Pulse 61 06/21/22 15:13 Resp 17 06/21/22 15:13 BP 98/51 L 06/21/22 15:13 Pulse Ox 96 06/21/22 15:13 O2 Del Method Room Air 06/21/22 15:13 O2 Flow Rate 40 06/21/22 00:00 FiO2 35 06/19/22 03:57 BMI result Body Mass Index 48.2 Const: Other: General awake alert x3,no acute distress.? Neck? no JVD. CVS? regular rate rhythm, Respiratory lungs clear to auscultation, no respiratory distress, no wheeze, no rhonchi. Gastrointestinal abdomen soft, obese, nontender, bowel sounds audible No chest wall tenderness, no redness, no tenderness, good range of motion left shoulder. Extremities no? edema Back no CVA tenderness Neuro nonfocal, speech clear Psych appropriate affect Objective Data Labs 06/20/22 07:25 06/21/22 08:58 Labs: Laboratory Results - last 24 hr 06/20/22 06/20/22 06/21/22 16:54 21:49 07:30 Sodium Potassium Chloride Carbon Dioxide Anion Gap BUN Creatinine Estim Creat Clear Calc Estimated GFR POC Glucose 135 H 168 H 112 Random Glucose Calcium 06/21/22 06/21/22 06/21/22 08:58 11:19 16:06 Sodium 150 H Potassium 3.8 Chloride 116 H Carbon Dioxide 21 L Anion Gap 17 BUN 35 H Creatinine 1.32 Estim Creat Clear Calc 46.0 Estimated GFR 39 POC Glucose 115 146 H Random Glucose 130 H Calcium 7.9 L Microbiology Microbiology Results: Microbiology 06/09/22 16:18 Blood - Venous Blood Culture - Final No growth after 5 days. 06/09/22 16:06 Blood - Venous Blood Culture - Final No growth after 5 days. 06/09/22 19:05 Urine clean catch - Urine medina top Urine Culture - Final Jennifer parapsilosis Procedures Date of Service Date of Service: 06/21/22 Assessment & Plan Assessment and plan (1) LETHA (acute kidney injury): Status: Acute Plan - LETHA: peak SCr 3.65; resolved with BELCHER c/w Obs uropathy ( known to Urol); will need chroni belcher as PT/family unable to ST cath - CKD 3: BSL Scr 1.2-1.4 -HyperNa: d/t combination of LETHA and inability to conc urne, poor PO intake and diarrhea REC: cont to encourage incr PO intake and start IV hypotonic fluid; need chronic belcher; check 24 hr total UOP and check Uosm Time Spent With Patient Time: Total time managing care of this patient today ____ minutes. Progress Note: Quality Stroke Does the patient have a stroke diagnosis?: No
[2022-06-21] MEDS: Dextrose 5 % 1,000 ML 80 ML IVCONT (17:30)
[2022-06-21 19:50] LABS: Glucose, Whole Blood 174 mg/dL (60-115)
[2022-06-21] MEDS: Insulin Lispro 100 UNIT/ML 3 ML VIAL SUBCUT (20:40)
[2022-06-21] MEDS: Metoprolol Tartrate 25 MG TABLET PO (20:40)
--- NOTE | 2022-06-21 21:33 | PC.NURSE ---
Patient refusing bedtime lipitor, reporting an allergic reaction to medication, per MAR, last dose of lipitor was given 06/19/22. Pharmacy notified.
[2022-06-22] VITALS (9 sets, daily range): BP systolic 99–147; BP diastolic 53–78; PULSE 54–73; RESP 15–20; TEMP 36.1–37.2; O2SAT 94–100
[2022-06-22] MEDS: 0.9 % Sodium Chloride Flush 3 ML SYRINGE IVFLUSH ×3 (00:03→20:19)
[2022-06-22] MEDS: Dextrose 5 % 1,000 ML 80 ML IVCONT ×2 (06:10→16:46)
[2022-06-22 07:35] LABS: Anion Gap 10 (12-20); Blood Urea Nitrogen 29 mg/dL (9-16); Carbon Dioxide 26 mmol/L (22-29); Chloride 112 mmol/L (96-108); Creatinine Clr Calc Pharmacy 47.4; Estimated Glomerular Filt Rate 41; Glucose Random 156 mg/dL (60-115); Potassium 3.1 mmol/L (3.3-5.1); Sodium 145 mmol/L (135-145)
[2022-06-22 07:35] LABS: Glucose, Whole Blood 161 mg/dL (60-115)
[2022-06-22] MEDS: Ipratropium Bromide 0.5 MG/2.5 ML SOLUTION INHALE ×4 (07:50→19:40)
[2022-06-22] MEDS: levalbuterol HCL 1.25 MG/3 ML VIAL.NEB INHALE ×4 (07:50→19:40)
[2022-06-22 08:18] LABS: Osmolality Urine 320 mosm/kg (373-1093)
[2022-06-22] MEDS: Potassium Chloride Packet 20 MEQ PACKET 40 MEQ PO (08:29)
[2022-06-22] MEDS: Insulin Lispro 100 UNIT/ML 3 ML VIAL SUBCUT ×3 (08:30→20:16)
[2022-06-22] MEDS: FLUoxetine HCl 20 MG CAPSULE PO (08:32)
[2022-06-22] MEDS: Acetaminophen 325 MG TABLET 650 MG PO ×2 (08:32→22:25)
[2022-06-22] MEDS: Ferrous Sulfate 324 MG TABLET.DR PO (08:32)
[2022-06-22] MEDS: Metoprolol Tartrate 25 MG TABLET PO ×3 (08:32→20:15)
[2022-06-22] MEDS: Nystatin Powder 15 GM BOTTLE 1 APPL TOPICAL ×3 (08:33→22:25)
[2022-06-22] MEDS: Ezetimibe 10 MG TABLET PO (08:47)
--- NOTE | 2022-06-22 09:01 | PC.NURSE ---
undid medication administration for Zetia on 06/18/2022 at 0900 in error while looking back at previous medication administration. Medication was administered on said date and time by Deysi Purdy RN. medication administration reentered. Supervisors aware.
[2022-06-22] MEDS: Apixaban 5 MG TABLET PO ×2 (09:55→20:15)
--- NOTE | 2022-06-22 10:24 | MHC.CM.PN ---
Per ROUNDS discussion, Patient is not yet medically cleared for dc (K is low and needs to be replaced); Home is the goal and CM will continue to follow.
--- NOTE | 2022-06-22 11:42 | HO.PM.IMPN ---
Subjective Subjective Date of Service: 06/23/22 Interval History: Doing well, refused bipap at night, sodium is better, vomitted meds including potassium this orning K is 3.1 Physical Exam Vital Signs: Vital Signs: Last Vital Signs Temp 97.2 F 06/22/22 11:15 Pulse 54 06/22/22 11:15 Resp 20 06/22/22 11:15 BP 118/72 06/22/22 11:15 Pulse Ox 100 06/22/22 11:15 O2 Del Method Room Air 06/22/22 11:15 O2 Flow Rate 40 06/21/22 00:00 FiO2 35 06/19/22 03:57 BMI result Body Mass Index 48.2 Const: Other: General awake alert x2,no acute distress.? Neck? no JVD. CVS? regular rate rhythm, Respiratory lungs clear to auscultation, no respiratory distress, no wheeze, no rhonchi. Gastrointestinal abdomen soft, obese, nontender, bowel sounds audible No chest wall tenderness, no redness, no tenderness, good range of motion left shoulder. Extremities no? edema Back no CVA tenderness Neuro nonfocal, speech clear Psych appropriate affect Objective Data Active Medications Acetaminophen (Acetaminophen 325 Mg Tablet) 650 mg PO Q6H PRN PRN Reason: Pain, Mild (Pain Scale 1-3) Last Admin: 06/22/22 08:32 Dose: 650 mg Documented By: JAYRO Apixaban (Apixaban 5 Mg Tablet) 5 mg PO BID [facility] Last Admin: 06/22/22 09:55 Dose: 5 mg Documented By: JAYRO Docusate Sodium (Docusate Sodium 100 Mg Capsule) 100 mg PO DAILY PRN PRN Reason: Constipation Ezetimibe (Ezetimibe 10 Mg Tablet) 10 mg PO DAILY [facility] Last Admin: 06/22/22 08:54 Dose: Not Given Documented By: JAYRO Non-Admin Reason: Patient Refused Ferrous Sulfate (Ferrous Sulfate 324 Mg Tablet.) 324 mg PO DAILY [facility] Last Admin: 06/22/22 08:32 Dose: 324 mg Documented By: JAYRO Fluoxetine HCl (Fluoxetine Hcl 20 Mg Capsule) 20 mg PO DAILY [facility] Last Admin: 06/22/22 08:32 Dose: 20 mg Documented By: JAYRO Glucose (Glucose Gel 15 Gm Gel..Gram.) 15 gm PO Q15M PRN; Protocol PRN Reason: per Hypoglycemia Standing Ord. Dextrose (D5w) 1,000 mls @ 80 mls/hr IVCONT .[id number] [facility] Last Admin: 06/22/22 06:10 Dose: 80 mls/hr Documented By: VARGHESE Insulin Human Lispro (Insulin Lispro 100 Unit/Ml 3 Ml Vial) 0 unit SUBCUT QIDACHS [facility]; Protocol Last Admin: 06/22/22 08:30 Dose: 2 unit Documented By: JAYRO Ipratropium [place]oe (Ipratropium [place] 0.5 Mg/2.5 Ml Solution) 0.5 mg INHALE RQ4H WHILE AWAKE [facility] Last Admin: 06/22/22 11:04 Dose: 0.5 mg Documented By: GALI Levalbuterol HCl (Levalbuterol Hcl 1.25 Mg/3 Ml Vial.Neb) 1.25 mg INHALE RQ4H WHILE AWAKE [facility] Last Admin: 06/22/22 11:04 Dose: 1.25 mg Documented By: GALI Levalbuterol HCl (Levalbuterol Hcl 1.25 Mg/3 Ml Vial.Neb) 1.25 mg INHALE Q2H PRN PRN Reason: wheeze/dyspnea Metoprolol Tartrate (Metoprolol Tartrate 25 Mg Tablet) 25 mg PO BID [facility]; Protocol Last Admin: 06/22/22 08:32 Dose: 25 mg Documented By: JAYRO Nystatin (Nystatin Powder 15 Gm Bottle) 1 appl TOPICAL TID [facility]; Protocol Last Admin: 06/22/22 08:33 Dose: 1 appl Documented By: JAYRO Ondansetron HCl (Ondansetron Hcl 4 Mg/2 Ml Vial) 4 mg IVPUSH Q8H PRN PRN Reason: Nausea and Vomiting Pharmacy Consult (Consult Rx Perform Med Rec) 1 each MISCELLANE ONCE PRN PRN Reason: Consult order Sodium Chloride (0.9 % Sodium Chloride Flush 3 Ml Syringe) 3 ml IVFLUSH QSHIFT [facility] Last Admin: 06/22/22 08:33 Dose: 3 ml Documented By: JAYRO Labs 06/20/22 07:25 06/22/22 06:21 Labs: Laboratory Results - last 24 hr 06/21/22 06/21/22 06/21/22 08:58 16:06 19:47 Anion Gap 17 Estim Creat Clear Calc 46.0 Estimated GFR 39 POC Glucose 146 H 174 H Random Glucose 130 H Calcium 7.9 L Urine Osmolality 06/22/22 06/22/22 06/22/22 06:21 07:22 07:26 Anion Gap 10 L Estim Creat Clear Calc 47.4 Estimated GFR 41 POC Glucose 161 H Random Glucose 156 H Calcium 8.0 L Urine Osmolality 320 L Assessment and Plan (1) Hypoxia: Status: Acute Plan 76yo F with HTN, HLD, DM2, CAD, pAF on apixaban, chronic BLE weakness [uses motorized chair], anxiety, depression, chronic pain syndrome, CKD with bilateral hydroureteronephrosis admitted for acute metabolic encephalopathy, LETHA # Weakness due to prolonged hospitalization: PT recommends STR at DC but pt wants to go home # acute HFpEF - compensated, monitor I/O + lytes -holding lasix d/t high sodium, diarrhea # acute hypoxic resp failure - d/t above, resolved, 100% on room air. # paroxysmal AF/RVR - continue apixaban + metoprolol- -continue to monitor hr # Hypokalemia - repleted, now 3.8 # hypernatremia -resolved after IVF # acute toxic/metabolic encephalopathy, d/t acute ilness, resolved # LETHA/CKD3 - SCr improved with Solis, likely obstructive uropathy, Nephrology following, Urology consulted- will need to d/c with [facility] and f/u as outpt to discuss SPC when medically stable - hold lisinopril-HCTZ # DM2 - continue correction-dose lispro # HTN - cotinue amlodipine + metoprolol - hold lisinopril-HCTZ as above # CAD - continue metoprolol + statin + ezetimibe # mood disorder - continue fluoxetine + duloxetine, d/c'ed quetiapine as above # chronic pain - d/c'ed gabapentin as above # chest wall pain - troponin + EKG unremarkable # VTE ppx: apixaban # dispo: TBD In my clinical judgment, the patient requires continued inpatient hospitalization for the following reasons: supplemental o2, monitor HR + lytes, PT eval pending likely home tomorrow Time Spent With Patient Time: Total time managing care of this patient today ____ minutes. Quality Stroke Does the patient have a stroke diagnosis?: No VTE Prior VTE?: No VTE Risk Level:: Medical - moderate - high VTE Device Contraindication: Treatment Not Indicated VTE Drug Contraindication: N/A - Med Ordered
[2022-06-22 11:43] LABS: Glucose, Whole Blood 148 mg/dL (60-115)
--- NOTE | 2022-06-22 12:44 | PM.PNNEP ---
Subjective Subjective Date of Service: 06/22/22 Interval history: Seen and exmained, events ntoted Physical Exam Vital Signs: Vital Signs: Last Vital Signs Temp 97.2 F 06/22/22 11:15 Pulse 54 06/22/22 11:15 Resp 20 06/22/22 11:15 BP 118/72 06/22/22 11:15 Pulse Ox 100 06/22/22 11:15 O2 Del Method Room Air 06/22/22 11:15 O2 Flow Rate 40 06/21/22 00:00 FiO2 35 06/19/22 03:57 BMI result Body Mass Index 48.2 Const: Other: General awake alert x3,no acute distress.? Neck? no JVD. CVS? regular rate rhythm, Respiratory lungs clear to auscultation, no respiratory distress, no wheeze, no rhonchi. Gastrointestinal abdomen soft, obese, nontender, bowel sounds audible No chest wall tenderness, no redness, no tenderness, good range of motion left shoulder. Extremities no? edema Back no CVA tenderness Neuro nonfocal, speech clear Psych appropriate affect Objective Data Labs 06/20/22 07:25 06/22/22 06:21 Labs: Laboratory Results - last 24 hr 06/21/22 06/21/22 06/22/22 16:06 19:47 06:21 Sodium 145 Potassium 3.1 L Chloride 112 H Carbon Dioxide 26 Anion Gap 10 L BUN 29 H Creatinine 1.28 Estim Creat Clear Calc 47.4 Estimated GFR 41 POC Glucose 146 H 174 H Random Glucose 156 H Calcium 8.0 L Urine Osmolality 06/22/22 06/22/22 06/22/22 07:22 07:26 11:36 Sodium Potassium Chloride Carbon Dioxide Anion Gap BUN Creatinine Estim Creat Clear Calc Estimated GFR POC Glucose 161 H 148 H Random Glucose Calcium Urine Osmolality 320 L Microbiology Microbiology Results: Microbiology 06/09/22 16:18 Blood - Venous Blood Culture - Final No growth after 5 days. 06/09/22 16:06 Blood - Venous Blood Culture - Final No growth after 5 days. 06/09/22 19:05 Urine clean catch - Urine medina top Urine Culture - Final Jennifer parapsilosis Procedures Date of Service Date of Service: 06/22/22 Assessment & Plan Assessment and plan (1) LETHA (acute kidney injury): Status: Acute Plan - LETHA: peak SCr 3.65; resolved with BELCHER c/w Obs uropathy ( known to Urol); will need chroni belcher as PT/family unable to ST cath - CKD 3: BSL Scr 1.2-1.4 -HyperNa: resolving weith incr PO intake -HypoK: replace REC: cont to encourage incr PO intake; need chronic belcher Time Spent With Patient Time: Total time managing care of this patient today ____ minutes. Progress Note: Quality Stroke Does the patient have a stroke diagnosis?: No
[2022-06-22 16:06] LABS: Glucose, Whole Blood 171 mg/dL (60-115)
[2022-06-22 19:42] LABS: Glucose, Whole Blood 166 mg/dL (60-115)
[2022-06-23] VITALS: BP 101/65; PULSE 62; RESP 18; TEMP 36.3; O2SAT 98
[2022-06-23 04:00] VITALS: BP 103/51; PULSE 60; RESP 16; TEMP 36.6; O2SAT 97
[2022-06-23] MEDS: Dextrose 5 % 1,000 ML 80 ML IVCONT (05:19)
[2022-06-23 07:16] LABS: Glucose, Whole Blood 144 mg/dL (60-115)
[2022-06-23 07:29] LABS: Anion Gap 12 (12-20); Blood Urea Nitrogen 26 mg/dL (9-16); Calcium 8.1 mg/dL (8.4-10.2); Carbon Dioxide 25 mmol/L (22-29); Chloride 110 mmol/L (96-108); Creatinine Clr Calc Pharmacy 42.8; Estimated Glomerular Filt Rate 36; Glucose Random 150 mg/dL (60-115); Potassium 3.6 mmol/L (3.3-5.1); Sodium 143 mmol/L (135-145)
[2022-06-23 07:38] VITALS: BP 124/57; PULSE 64; RESP 20; TEMP 36.1; O2SAT 96
[2022-06-23] MEDS: levalbuterol HCL 1.25 MG/3 ML VIAL.NEB INHALE ×2 (07:51→11:19)
[2022-06-23] MEDS: Ipratropium Bromide 0.5 MG/2.5 ML SOLUTION INHALE ×2 (07:51→11:19)
[2022-06-23 07:53] VITALS: PULSE 65; RESP 18; O2SAT 97
[2022-06-23] MEDS: Ferrous Sulfate 324 MG TABLET.DR PO (08:34)
[2022-06-23] MEDS: Ezetimibe 10 MG TABLET PO (08:34)
[2022-06-23] MEDS: Apixaban 5 MG TABLET PO (08:34)
[2022-06-23] MEDS: FLUoxetine HCl 20 MG CAPSULE PO (08:34)
[2022-06-23] MEDS: 0.9 % Sodium Chloride Flush 3 ML SYRINGE IVFLUSH (08:35)
[2022-06-23] MEDS: Nystatin Powder 15 GM BOTTLE 1 APPL TOPICAL (08:35)
[2022-06-23] MEDS: Metoprolol Tartrate 25 MG TABLET PO (08:35)
--- NOTE | 2022-06-23 11:06 | P.DS_ITS ---
DS: Providers Provider Date of Service: 06/23/22 Date of admission: 06/09/22 20:15 Primary care physician: Janet Phelan MD Consults: 06/09/22 20:37 Consult to Nephrology Routine Consulting Provider: Piter Novoa Reason for consultation: letha, hyperkalemia 06/10/22 13:34 Consult to Urology Routine Consulting Provider: Mayito Calhoun Reason for consultation: retention Has provider been notified: No DS: Diagnosis Discharge Diagnosis (1) LETHA (acute kidney injury): Status: Acute DS: Summary Status at Discharge Cognitive/behavioral status at discharge: Chief Complaint: AMS 76-year-old female patient with past medical history significant for hypertension, hyperlipidemia, diabetes mellitus on insulin, coronary artery disease, paroxysaml atrial flutter on eliquis, chronic bilateral leg weakness on motorized chair, history of cervical spine surgery, history of anxiety depression, chronic pain syndrome, history of chronic kidney disease with history of bilateral hydronephrosis / hydroureter and distended bladder?presented to the ED earlier today with family for evaluation of AMS ongoing since monday. The patient is a&ox3 but is confused and unable to give history. Her daughter states pt woke up monday confused and this has worsened since. She has reported dark urine. No fevers, chills and pt denies dysuria, hematuria. urgency, increased frequency.? On arrival, vital signs stable.? No leukocytosis.? Creatinine 3.65, baseline 1.25.? BUN 72.? Sodium 141, potassium 7.2, chloride 113, CO2 19.? glucose 133.? BNP 259.? Troponin 3.3.? Treated with 10 units regular insulin, D10, calcium gluconate, Lokelma, and 4 L IV NS with improvement in potassium to 6.5.? Minimal improvement in creatinine to 3.28, BUN 68.? Chloride 116, CO2 17.? Head CT is without any acute intracranial abnormalities.? CXR showing pulmonary vascular congestion without any overt edema or effusions.? No acute cardiopulmonary abnormality.? Urinalysis showing 3+ leukocytes, negative nitrites, 3+ blood, positive urinary sediment, negative bacteria.? Cultures pending.? Given dose of 1 g ceftriaxone for empiric coverage for UTI. Hospital course: Patient was admitted to acute respiratory failure with hypoxia, metabolic encephalopathy, LETHA d/t urinary retention and obstructive urophaty, periods of AFIB with RVR, heart failure and elctrolytes abnormalites, diarrhea # paroxysmal AF/RVR--Initially required IV cardizem drip and ultimately was able to be transition back to oral metoprolol, presently at 25 mg twice daily and to continue Eliquis 5 mg twice daily, heart rate is presently in the 60s. # acute HFpEF--She required IV Lasix, which ultimately was discontinued, once she was compensated, presently not on diuretics. Previously was on HCTZ but this has been off since hospitalization # acute hypoxic resp failure, likely related to heart failure, hypoventilation. This has resolved and presently saturation near 100% on rooma air. # acute toxic/metabolic encephalopathy--likely related to acute ilness of pneumonia, hypoxia, uti, real failure--This has resolved and she is at her baseline, in addition polypharmacy was of concern and therefore Seroquel and Gabapentin were stopped # LETHA/CKD3-- SCr improved with Belcher, likely obstructive uropathy, Nephrology following, Urology consulted- will need to go home with Belcher and f/u as outpt to discuss SPC when medically stable, family is not able to do straight cath. Stopped- lisinopril-HCTZ # hyperK due to LETHA, this resolved and infact developped Hypokalemia later and that has also resolved. Will continue to avoid Lisinpril. Hyperkalemia was treated with stopping lisinopril and adding Lokelma # metabolic acidosis - resolved- d/c bicarbonate supplementation # DM2--Resume home insulin # HTN - cotinue amlodipine + metoprolol. No longer on Liisinopril-HCTZ # CAD - continue metoprolol + statin + ezetimibe # mood disorder - continue fluoxetine + duloxetine, stopped quetiapine as above # chronic pain - stopped gabapentin as above Time Spent with Patient Time attestation: Total time managing care of this patient today ____ minutes. Discharge coordination time: Greater than 30 minutes Quality: Safe Use of Opioids Does Pt have an Active Cancer Diagnosis on the Problem List?: No Quality: Stroke Does the patient have a stroke diagnosis?: No Physical Exam Vital Signs: Vital Signs: Last Vital Signs Temp 96.9 F 06/23/22 07:38 Pulse 65 06/23/22 07:53 Resp 18 06/23/22 07:53 BP 124/57 L 06/23/22 07:38 Pulse Ox 96 06/23/22 07:38 O2 Del Method Room Air 06/23/22 07:38 O2 Flow Rate 40 06/21/22 00:00 FiO2 35 06/19/22 03:57 BMI result Body Mass Index 48.2 DS: Data Data Completed and Pending Completed studies during hospitalization [Text1]: Procedures Insertion of Endotracheal Airway into Trachea, Via Natural or Artificial Opening (04/10/22) Insertion of Infusion Device into Right Basilic Vein, Percutaneous Approach (01/21/21) Insertion of Infusion Device into Superior Vena Cava, Percutaneous Approach (04/10/22) Introduction of Vasopressor into Central Vein, Percutaneous Approach (04/10/22) Performance of Urinary Filtration, Intermittent, Less than 6 Hours Per Day (04/10/22) Respiratory Ventilation, 24-96 Consecutive Hours (04/10/22) Ultrasonography of Superior Vena Cava, Guidance (04/10/22) Labs on day of discharge: Laboratory Results - last 24 hr 06/22/22 06/22/22 06/22/22 11:36 16:03 19:39 Sodium Potassium Chloride Carbon Dioxide Anion Gap BUN Creatinine Estim Creat Clear Calc Estimated GFR POC Glucose 148 H 171 H 166 H Random Glucose Calcium 06/23/22 06/23/22 06:41 07:11 Sodium 143 Potassium 3.6 Chloride 110 H Carbon Dioxide 25 Anion Gap 12 BUN 26 H Creatinine 1.42 H Estim Creat Clear Calc 42.8 Estimated GFR 36 POC Glucose 144 H Random Glucose 150 H Calcium 8.1 L Discharge Plan Discharge Anticipated Discharge Date/Time: 06/23/22 11:01 Patient Disposition: Home Health Service Discharge Diagnosis: Acute hypoxic respiratory failure, metabolic encephalopathy, renal failure, hydronephrosis, obstructive uropathy. Referrals: Brittney KIRKLAND [Outside] - 1 Week Janet Phelan MD [Primary Care Provider] - 1 Week Discharge Medications: Continued Gemtesa 75 mg tablet 75 mg PO DAILY 30 Days Qty: 30 0RF metoprolol tartrate 25 mg tablet 25 mg PO BID Protocol: Hold for SBP/HR < HOLD for SBP < : 90 HOLD for HR < : 60 Eliquis 5 mg Tablet 5 mg PO BID Qty: 60 0RF (DME) lancets [FreeStyle Lancets] 28 gauge misc See Rx Instructions .ROUTE .MEDSUPPLY Qty: 100 0RF Rx Instructions: As directed (DME) FreeStyle Lite Strips Strip See Rx Instructions .Route Qty: 100 0RF Rx Instructions: As directed (DME) pen needle, diabetic [Pen Needle] 32 gauge x 5/32 needle See Rx Instructions .Route Qty: 50 0RF Rx Instructions: As directed duloxetine 30 mg capsule,delayed release(DR/EC) 30 mg PO DAILY amlodipine 5 mg Tablet 5 mg PO DAILY Qty: 30 0RF Protocol: Hold for SBP< HOLD for SBP < : 90 insulin lispro [Humalog KwikPen Insulin] 100 unit/mL insulin pen 6 unit subcut TID ezetimibe 10 mg tablet 10 mg PO DAILY rosuvastatin 20 mg tablet 20 mg PO BEDTIME (DME) lancing device with lancets [Road Herouch DelSportgenic Lanc Device] Kit See Rx Instructions .ROUTE .MEDSUPPLY Qty: 1 Rx Instructions: As directed fluoxetine 20 mg capsule 20 mg PO DAILY albuterol sulfate 90 mcg/actuation HFA aerosol inhaler 2 puff inhalation QID PRN (Reason: Respiratory Distress) ferrous sulfate 325 mg (65 mg iron) tablet 325 mg PO DAILY Discontinued sulfamethoxazole-trimethoprim [Bactrim DS] 800-160 mg tablet 1 tab PO .COMPLEX 30 Days Qty: 30 1RF Rx Instructions: 1 tab orally on days of catheter change; quetiapine 300 mg tablet 300 mg PO BEDTIME PRN (Reason: Insomnia) Rx Instructions: MRX1 gabapentin 600 mg tablet 600 mg PO TID quetiapine 200 mg tablet 200 mg PO BEDTIME lisinopril-hydrochlorothiazide 20-25 mg tablet 1 tab PO DAILY Discharge Orders: Discharge Order (Routine); Ordered 06/23/22 Ordered By: Tavon Daigle Diet: Diabetic diet Activity on Discharge: As tolerated Stand Alone Forms: Patient Portal Discharge page Care Plan Goals: Full recovery from respiratory failure, her metabolic encephalopathy renal failure. Health Concerns: Acute respiratory failure Renal failure Metabolic encephalopathy Plan of Treatment: Take all medications as recommended Stop taking lisinopril and Hydrochlorothiazide Stop taking seroquel and Gabapentin Follow up with DR. Song Follow up with kidney Dr. Contreras Follow up with your primary care provider May flush belcher catheter with 30-60 cc of sterile water as needed for blockage or increased sediment. May replace with similar size if becomes dislodged as needed and routine every 4 weeks Assessment: As above
[2022-06-23 11:19] VITALS: PULSE 66; RESP 18; O2SAT 96
[2022-06-23 11:26] LABS: Glucose, Whole Blood 131 mg/dL (60-115)
[2022-06-23 11:34] VITALS: BP 113/58; PULSE 56; RESP 20; TEMP 36.6; O2SAT 100
--- NOTE | 2022-06-23 11:43 | MHC.CM.PN ---
Patient has been medically cleared for dc to home today with services. A referral was made to [facility], who accepted Patient at that time and [facility] has been made aware of today's dc. Last IMM addressed on 06/21/2022.
--- NOTE | 2022-06-23 11:50 | W.MHC.F2F ---
Service Date Service Date: 06/23/22 Encounter Date of encounter: 06/23/22 Reasons for Services Signs and symptoms assessed: Weakness post hospitalization Reason for retirement: medication management, medication treatment, teach disease management and GI/ assessment Reason for physical therapy: therapeutic exercises and energy conservation Homebound: Leaving the home is medically contraindicated at this time without the asist of a device and/or another person due th the listed conditions above and below. Reason homebound: unsteady gait / fall risk and weakness related to hospital stay Homebound supporting statement: homebound due to prolonged hospitalization with heart failure, respiratory failure, weakness and therefore needs the assitance of another person Certification: Based on the above findings, I certify that this patient is confined to the home and needs intermittent retirement care, physical therapy and/or speech therapy, or continues to need occupational therapy. The patient is under my care, and I have initiated the establishment of the plan of care. The patient will be followed by a physician who will periodically review the plan of care. Time Spent With Patient Time: Total time managing care of this patient today ____ minutes.
--- NOTE | 2022-06-23 12:40 | MHC.CM.PN ---
Patient will be dc to home today at 3:30 PM via [facility].
== END 2022-06-23 15:58 | disposition home health service (06) | DRG 682 ==
LOC: HO.ED 17:14 → HO.EDOVER 20:31 → HO.IMC 06-10 07:37
PROVIDERS: Family Medicine; Hospitalist; Internal Medicine; Internal Medicine Nephrology; Student in an Organized Health Care Education/Training Program; Admitting Provider Physician Assistant; Emergency Provider Student in an Organized Health Care Education/Training Program; PCP Internal Medicine; Visit Provider Internal Medicine
DX: N17.9 Acute kidney failure, unspecified (principal); G92.8 Other toxic encephalopathy; I50.31 Acute diastolic (congestive) heart failure; I13.0 Hypertensive heart and chronic kidney disease with heart failure and stage 1 through stage 4 chronic kidney disease, or unspecified chronic kidney disease; E87.21 Acute metabolic acidosis; F05 Delirium due to known physiological condition; E87.0 Hyperosmolality and hypernatremia; N13.6 Pyonephrosis; E87.5 Hyperkalemia; N18.30 Chronic kidney disease, stage 3 unspecified; I25.10 Atherosclerotic heart disease of native coronary artery without angina pectoris; E11.22 Type 2 diabetes mellitus with diabetic chronic kidney disease; G89.4 Chronic pain syndrome; I48.0 Paroxysmal atrial fibrillation; D64.9 Anemia, unspecified; E11.43 Type 2 diabetes mellitus with diabetic autonomic (poly)neuropathy; D63.1 Anemia in chronic kidney disease; N32.81 Overactive bladder; Z20.822 Contact with and (suspected) exposure to COVID-19; Z87.440 Personal history of urinary (tract) infections; Z87.891 Personal history of nicotine dependence; Z88.5 Allergy status to narcotic agent; Z79.4 Long term (current) use of insulin; Z79.01 Long term (current) use of anticoagulants; Z79.899 Other long term (current) drug therapy
CPT/HCPCS: 36415; 36600; 70450; 71045; 74176; 80048; 80076; 81001; 82077; 82140; 82803; 82947; 83605; 83690; 83735; 83880; 83935; 84132; 84145; 84484; 85025; 85027; 86140; 87040; 87086; 87088; 87635; 93005; 93306; 94660; 97162; 99285; C1758; J0613; J0696; J1200; J1940; P9047

== ENCOUNTER 2022-06-23 09:42 | Outpatient (REF) | payer OTHER, SELFPAY | END 2022-06-23 09:43 | disposition home or self-care (01) | LOC: HO.HOSX 09:42 | PROVIDERS: Visit Provider Physician Assistant | DX: Z13.89 Encounter for screening for other disorder (principal) ==

== ENCOUNTER → 2022-07-07 14:22 | Outpatient (BNVA) | payer OTHER, SELFPAY | PROVIDERS: PCP Internal Medicine; Visit Provider Nurse Practitioner Family | DX: R33.9 Retention of urine, unspecified (principal); N39.42 Incontinence without sensory awareness; N39.0 Urinary tract infection, site not specified | CPT/HCPCS: 51798; 99212 ==

== ENCOUNTER 2022-07-25 10:52 | Outpatient (REF) | payer OTHER, SELFPAY ==
--- NOTE | ~2022-07-25 | US_ITS ---
EXAMINATION: US RETROPERITONEAL COMPLETE (RENAL) CLINICAL INFORMATION: Incontinence without sensory awareness. COMPARISON: CT abdomen and pelvis without intravenous contrast dated 06/09/2022. Bilateral renal ultrasound dated 07/15/2021. KUB dated 12/15/2011. TECHNIQUE: Real-time imaging of the kidneys and bladder. FINDINGS: RIGHT KIDNEY: 9.8 x 5.5 x 5.4 cm (SAG x AP x TRV). The kidney is normal in size, contour, and echogenicity. Renal cortical thickness is normal. No renal calculi or hydronephrosis. There is a 4.6 x 4.6 x 4.8 cm mass in the right kidney which was thought to be a solid mass on ultrasound. On color-flow Doppler imaging, some flow was appreciated within this mass. However, on the recent CT scan, this measured water density. Given the solid appearance on ultrasound, differential diagnosis would include a fat-poor angiomyolipoma. Further evaluation is recommended for clarification. LEFT KIDNEY: 10.2 x 5.5 x 3.6 cm (SAG x AP x TRV). The kidney is normal in size, contour, and echogenicity. Renal cortical thickness is normal. No renal calculi or hydronephrosis. A benign mid renal Bosniak class I, 1.3 cm cyst is seen which needs no additional imaging or followup. BLADDER: Well distended and normal. Bilateral ureteral jets are demonstrated. Prevoid bladder volume is 275 mL. Postvoid bladder volume is 306 mL. US/US retroperitoneal comp IMPRESSION: 1. A 4.8 cm possible solid right renal mass. Further evaluation is recommended with pre and postcontrast renal MRI. 2. Large 306 mL postvoid residual. 3. Benign Bosniak class I left renal cyst needs no further imaging or followup.
== END 2022-07-25 10:53 | disposition home or self-care (01) ==
LOC: HO.US 10:52
PROVIDERS: PCP Internal Medicine; Visit Provider Nurse Practitioner Family
DX: N39.0 Urinary tract infection, site not specified (principal); N39.42 Incontinence without sensory awareness; R33.9 Retention of urine, unspecified
CPT/HCPCS: 76770

== ENCOUNTER 2022-07-29 16:35 | Outpatient (REF) | payer OTHER, SELFPAY ==
[2022-07-29 16:47] LABS: Appearance Urine Cloudy; Color Urine Yellow; Glucose Urine UA Negative (Negative); Leukocyte Esterase Urine Large (3+) (Negative); Nitrite Urine Negative (Negative); PH 5.5 (5.0-9.0); UMIC TRIGGER UA YES; Urine Blood Large (3+) (Negative); Urine Ketones Negative (Negative); Urine Protein 30 (1+) mg/dL (Neg-Trace)
[2022-07-29 16:50] LABS: Bacteria Urine 4+ (None Seen); RBC Urine >20 /HPF (0-2); WBC Urine >50 /HPF (0-5)
== END 2022-07-29 16:36 | disposition home or self-care (01) ==
LOC: HO.LNP 16:35
PROVIDERS: PCP Urology; Visit Provider Nurse Practitioner Family
DX: N39.0 Urinary tract infection, site not specified (principal)
CPT/HCPCS: 81001; 87086; 87088; 87186

== ENCOUNTER 2022-08-11 14:13 | Outpatient (REF) | payer OTHER, SELFPAY | END 2022-08-11 14:14 | disposition home or self-care (01) | LOC: HO.LAB 14:13 | PROVIDERS: Visit Provider Urology | DX: N39.0 Urinary tract infection, site not specified (principal); R33.9 Retention of urine, unspecified; N39.42 Incontinence without sensory awareness; E11.9 Type 2 diabetes mellitus without complications | CPT/HCPCS: 87086; 87088; 87186; 99212 ==

== ENCOUNTER → 2022-08-18 14:29 | Outpatient (BNVA) | payer OTHER, SELFPAY | PROVIDERS: PCP Internal Medicine; Referring Provider Internal Medicine; Visit Provider Internal Medicine | DX: I48.0 Paroxysmal atrial fibrillation (principal); I10 Essential (primary) hypertension; E11.9 Type 2 diabetes mellitus without complications | CPT/HCPCS: 99212 ==

== ENCOUNTER 2022-09-29 13:33 | Outpatient (REF) | payer OTHER, SELFPAY ==
--- NOTE | ~2022-09-29 | MR_ITS ---
EXAMINATION: MR ABDOMEN WITHOUT AND WITH CONTRAST CLINICAL INFORMATION: Other specified disorders of the kidney and ureter, suspected solid renal mass on prior ultrasound COMPARISON: Renal ultrasound 07/25/2022, CT abdomen pelvis 06/09/2022 TECHNIQUE: MRI of the abdomen before and after the IV administration of 10 mL of Gadavist was obtained using routine sequences however with an abbreviated field due to to reported patient physical and breath hold limitations, only covering the kidneys in their entirety. FINDINGS: LUNG BASES: The visualized lung bases are unremarkable. KIDNEYS AND URETERS: Moderate left hydronephrosis. Kidneys are mildly atrophic. Bosniak 1 benign-appearing bilateral renal cysts and a Bosniak 2 intrinsically homogeneously T1 hyperintense Bosniak 2 left renal cyst no imaging follow-up recommended. A 5.0 x 5.3 x 4.7 cm centrally T2 hyperintense and necrotic peripherally enhancing exophytic right upper pole renal mass which demonstrates homogeneous loss of signal on opposed phase imaging and no definite macroscopic fat components. GALLBLADDER: Status post cholecystectomy. LIVER AND BILIARY TREE: Large portions of the liver are excluded from the fokcm-mz-fbwp on axial sequences limiting assessment. No intra or extrahepatic biliary duct dilatation. Mild loss of signal on opposed phase imaging suggesting hepatic steatosis. PANCREAS: Pancreatic tail is excluded from the beumh-ls-vyip on the axial sequences limiting assessment. No pancreatic duct dilatation. SPLEEN: Large portions of the spleen are included from the mhchl-gt-jjsg on axial sequences limiting evaluation. ADRENAL GLANDS: Unremarkable GASTROINTESTINAL TRACT: Unremarkable. LYMPH NODES: No lymphadenopathy. VASCULAR: Unremarkable ABDOMINAL WALL: Unremarkable. OSSEOUS STRUCTURES: A T2 bright lesion in the L3 vertebral body with intrinsic T1 hyperintense signal compatible with fat suggesting hemangioma or focal fat. MR/MR abdomen wo/w con IMPRESSION: * A 5.3 cm heterogeneous T2 heterogeneously enhancing exophytic right upper pole renal mass with loss of signal on opposed phase imaging, suspicious for clear cell renal cell carcinoma. Recommend urologic evaluation and management. * Moderate left hydronephrosis similar to prior. * Mild hepatic steatosis. * Technically limited exam performed with an appreciated protocol the entirety of the abdomen was not imaged on all sequences. The findings and recommendations were discussed with Willian Quigley MD by telephone at 09/30/2022 3:47 PM and it was ascertained that the content and urgency of the report was understood at the time of direct communication.
[2022-09-29] MEDS: gadobutroL 10 ML VIAL IVPUSH (14:32)
== END 2022-09-29 13:34 | disposition home or self-care (01) ==
LOC: HO.MRI 13:33
PROVIDERS: PCP Internal Medicine; Visit Provider Urology
DX: N28.89 Other specified disorders of kidney and ureter (principal)
CPT/HCPCS: 74183; A9585

== ENCOUNTER 2022-10-10 14:30 | Outpatient (AMB) | payer OTHER, SELFPAY ==
--- NOTE | 2022-10-10 11:42 | MHC.OFFVIS ---
Intake Intake Visit Reasons: MRI Results Intake Note: Patient presents today for a follow-up on MRI Results, Completed on 09/29/2022: Meds- None Allergies to Antibiotic- No Known Allergies Blood Thinner- Eliquis Field Representative/Health Education Required: No Allergies atorvastatin [ATORVASTATIN] Allergy (Intermediate, Verified 08/18/22 14:34) SWELLING morphine [MORPHINE] Allergy (Intermediate, Verified 08/18/22 14:34) RASH zolpidem [From AMBIEN] Adverse Reaction (Intermediate, Verified 08/18/22 14:34) SLEEP WALKS Medication List - Last Reconciled 10/10/22 by Willian Quigley MD albuterol sulfate 90 mcg/actuation 2 puffs inhalation QID PRN amlodipine 5 mg See Protocol PO DAILY apixaban (Eliquis) 5 mg PO BID blood sugar diagnostic (FreeStyle Lite Strips) As directed doxycycline hyclate 100 mg PO BID 5 days duloxetine 30 mg PO DAILY ferrous sulfate 325 mg PO DAILY fluoxetine 20 mg PO DAILY gabapentin 600 mg PO TID insulin lispro (Humalog KwikPen (U-100) Insulin) 6 units subcut TID lancets (FreeStyle Lancets) As directed lancing device with lancets (TigerText Lancing Device kit) As directed metoprolol tartrate 25 mg See Protocol PO BID nitrofurantoin monohyd/m-cryst 100 mg (Macrobid) 100 mg PO BID pen needle, diabetic (Pen Needle) As directed trazodone 50 - 100 mg PO BEDTIME PRN HPI HPI Comments History of Present Illness Details Shweta is a 77-year-old female who presents today with her daughter to the office for a follow-up. 10/10/2022? Shweta is followed today for abdomen MRI results. She was last seen by me on 08/11/2022 for chronic urinary tract infections. Fosfomycin was ordered at that time. MRI was ordered, and discussed with the patient and daughter that she may benefit from SP tube in the future at that time. I reviewed the microgen testing which was performed on 08/11/2022 which came back 2 bacteria, klebsiella pneumonia, and bacteroides fragilis. Klebsiella is sensitive for multiple antibiotics including Macrobid, and bacteroides was sensitive to doxycycline. Discussed with the family abdomen MRI results from 09/29/2022 revealed a 5.3 cm heterogeneous T2 heterogeneously enhancing exophytic right upper pole renal mass with loss of signal on opposed phase imaging, suspicious for clear cell renal cell carcinoma. Moderate left hydronephrosis similar to prior. Her daughter states that the patient has been having persistent urinary incontinence. Catheter was placed noting >375 mL of urine that was cloudy. A 16 Fr Belcher catheter was placed to drainage. 10/10/2022: Evaluation today?UA? leukocytes: 3+: blood: trace; nitrite positive. Review of charts: Last visit: 08/11/2022? 76-year-old English-speaking female who is accompanied by her daughter at todays visit. She is being followed for neurogenic bladder. She was seen last on 07/07/22 by PROPERTY DEVELOPER Angela Howell.? Past medical history significant for hypertension, hyperlipidemia, diabetes mellitus on insulin, coronary artery disease, paroxysmal atrial flutter on eliquis, chronic bilateral leg weakness on motorized chair, history of cervical spine surgery, anxiety, depression, chronic pain syndrome, chronic kidney disease with history of bilateral hydronephrosis / hydroureter and distended bladder. Of note, patient has seen Dr. Calhoun in the past for urinary urgency, recurring UTIs, and urinary urgency with urge incontinence in setting of diabetes. Patient has previously trialled and failed off of oxybutynin, Myrbetriq, Vesicare, and Gemtesa.. August 2020 - cystoscopy - normal anatomy with botox injection times 2 in the past. She reports initial Botox to have been effective however when undergoing botox again months later it did not work well for her. In review of chart, the patient was previously seen approximately 6 weeks ago at which time a voiding trial was performed in the office and patient successfully passed her voding trial. Approxitmately 2 weeks later patient presented to the ER and was noted to have LETHA which improved with fluids and belcher catheter. The patient was discherged with belcher in place however during assessment of the patient today her daughter reports belcher has been replaced by [facility] multiple times however despite inflating the balloon the belcher continues to fall out. The patient has been without an indwelling belcher since Monday this week per patient and daughter. The patients's daughter states that at the hospital on 07/29/22, the nurse was unable to insert the catheter even after the changing the size. The patient had an episode of UTI in the interim and has completed antibiotic therapy.? ?The patient is using pull-ups currently. I reviewed renal US from-- 07/25/22-- radiologist notes 4.6 cm lesion on US has some solid components.? However, on the CAT scan from 06/09/22 - reports lesion? appears to be a cystic. The patient is Unable to void to provide? urine for urinalysis.? PVR 9 mL.?? On exam:? Catheterized urine - +pyuria, 510 ML drained from the bladder Cystoscopy was not done because her urine was cloudy. Will empirically start fosfomycin. Urine culture?07/29/22-- Positive for? Klebsiella pneumoniae. Plan: Chronic UTI- Fosfomycin Renal mass.? MRI was ordered. Discussed with the patient and daughter that she may benefit from SP tube in the future. 10/10/2022: Plan: Will send for urine for culture. Lasix renal scan was ordered for further evaluation of the left hydronephrosis. Referral to Dr. Quiñones for right renal cell carcinoma. Nitrite positive urine. Prescribed Macrobid 100 mg BID for 10 days, and complete doxycycline. Tele-health follow-up in 3 weeks to review the nuclear lasix renal scan results. [facility] Medical History LETHA (acute kidney injury) Anxiety and depression Arthritis Asthma Atrial flutter CAD (coronary artery disease) Chronic kidney disease, stage 3 Chronic pain CKD (chronic kidney disease) stage 4, GFR 15-29 ml/min Diabetes mellitus High cholesterol History of myocardial infarction HTN (hypertension) Hyperglycemia Lateral malleolar fracture Limited mobility Multiple falls Myocardial infarction On anticoagulant therapy On beta lanette at home Paroxysmal atrial fibrillation Type 2 diabetes mellitus with unspecified complications Urgency incontinence Surgical History H/O neck surgery History of cataract extraction History of cystoscopy History of heart artery stent Hx of cholecystectomy Hx of colonoscopy Family History Father No problems noted. Mother Diabetes High blood pressure Stomach cancer Social History Household Members: None Housing: Apartment Are you a primary care professional to a significant other at home: No Unable to assess alcohol history related to: Unable to respond and Unknown Alcohol intake: never Patient Tobacco Use Status: Former Tobacco user Quit Date: 2005 Tobacco use type: Cigarette Years Smoked: 30-40 years Second Hand Smoke Exposure: No Substance Use Type: Crack/Cocaine service: No Current occupational status: disabled Review of Systems Const All systems reviewed & are unremarkable except as noted in HPI and below Reports no additional complaints Eyes Reports no additional complaints ENT Reports no additional complaints Card Denies dyspnea Resp Denies cough and Denies dyspnea GI Reports no additional complaints Reports no additional complaints Musc Reports no additional complaints Skin/Breast Denies rash and Denies unusual bruising Neuro Reports no additional complaints Psych Reports no additional complaints Endo Reports no additional complaints Kurtis/Lymph Reports no additional complaints Aller/Immun Reports no additional complaints Physical Exam Const General: cooperative and no acute distress Nutritional Appearance: overweight Orientation/consciousness: patient oriented x3 HEENT Head: Yes normal to inspection, Yes normocephalic and Yes atraumatic Eyes Conjunctivae: conjunctivae normal Neck Neck: Yes normal visual inspection and Yes trachea midline Chest Chest palpation & inspection: normal inspection of the chest Resp Effort & Inspection: normal respiratory effort Cardio Rate: regular rate GI Inspection: Yes normal to inspection Palpation (GI): Soft to palpation General: No no CVA tenderness External Female Exam: normal external appearance Speculum Exam - Vagina: vagina atrophic Back/Spine/Pelvis Back: No no CVA tenderness Skin General skin exam: no rashes or lesions noted Neuro General: patient oriented x3 Extrem General: Yes edema Psych Appearance: grossly normal Results AMB Urinalysis, Automated UA Leukoctes 500 Puma/uL Last Edit by ARASH Garcia on 10/10/22 15:15 3+ Gemma Helton 10/10/22 15:15 UA Nitrite Positive Last Edit by ARASH Garcia on 10/10/22 15:15 UA Urobilinogen 0.2 mg/dL Last Edit by Gemma Helton [facility] on 10/10/22 15:15 UA Protein 30 mg/dL Last Edit by Gemma Helton, [facility] on 10/10/22 15:15 1+ Gemma Helton 10/10/22 15:15 UA pH 6.0 Last Edit by Gemma Helton, [facility] on 10/10/22 15:15 UA Blood 10 John/uL Last Edit by Gemma Helton, [facility] on 10/10/22 15:15 UA Specific [place] 1.020 Last Edit by Gemma Helton [facility] on 10/10/22 15:15 UA Ketone Negative Last Edit by Gemma Helton [facility] on 10/10/22 15:15 UA Bilirubin 0 mg/dL Last Edit by Gemma Helton [facility] on 10/10/22 15:15 UA Glucose 0 mg/dL Last Edit by Gemma Helton [facility] on 10/10/22 15:15 Results Reviewed Results Reviewed: Laboratory Last Values Urine pH (Auto) 6.0 10/10/22 15:10 Specific [place] (Auto) 1.020 10/10/22 15:10 Urine Protein (Auto) 30 mg/dL 10/10/22 15:10 Glucose (UA)(Auto) 0 mg/dL 10/10/22 15:10 Urine Ketones (Auto) Negative 10/10/22 15:10 Urine Blood (Auto) 10 John/uL 10/10/22 15:10 Urine Nitrite (Auto) Positive 10/10/22 15:10 Urine Bilirubin (Auto) 0 mg/dL 10/10/22 15:10 Urine Urobilinogen (Auto) 0.2 mg/dL 10/10/22 15:10 Leukocyte Esterase (Auto) 500 Puma/uL 10/10/22 15:10 Date of Service: 09/29/22 EXAMINATION: MR ABDOMEN WITHOUT AND WITH CONTRAST CLINICAL INFORMATION: Other specified disorders of the kidney and ureter, suspected solid renal mass on prior ultrasound? COMPARISON: Renal ultrasound 07/25/2022, CT abdomen pelvis 06/09/2022 FINDINGS: LUNG BASES: The visualized lung bases are unremarkable.? KIDNEYS AND URETERS: Moderate left hydronephrosis. Kidneys are mildly atrophic. Bosniak 1 benign-appearing bilateral renal cysts and a Bosniak 2 intrinsically homogeneously T1 hyperintense Bosniak 2 left renal cyst no imaging follow-up recommended. A 5.0 x 5.3 x 4.7 cm centrally T2 hyperintense and necrotic peripherally enhancing exophytic right upper pole renal mass which demonstrates homogeneous loss of signal on opposed phase imaging and no definite macroscopic fat components. GALLBLADDER: Status post cholecystectomy.? LIVER AND BILIARY TREE: Large portions of the liver are excluded from the erifv-im-efqt on axial sequences limiting assessment. No intra or extrahepatic biliary duct dilatation. Mild loss of signal on opposed phase imaging suggesting hepatic steatosis. PANCREAS: Pancreatic tail is excluded from the lbqom-zf-xaly on the axial sequences limiting assessment. No pancreatic duct dilatation.? SPLEEN: Large portions of the spleen are included from the aytzk-aw-urad on axial sequences limiting evaluation. ADRENAL GLANDS: Unremarkable? ? GASTROINTESTINAL TRACT: Unremarkable. ? LYMPH NODES: No lymphadenopathy. VASCULAR: Unremarkable ABDOMINAL WALL: Unremarkable.? OSSEOUS STRUCTURES: A T2 bright lesion in the L3 vertebral body with intrinsic T1 hyperintense signal compatible with fat suggesting hemangioma or focal fat. IMPRESSION: *? A 5.3 cm heterogeneous T2 heterogeneously enhancing exophytic right upper pole renal mass with loss of signal on opposed phase imaging, suspicious for clear cell renal cell carcinoma. Recommend urologic evaluation and management. *? Moderate left hydronephrosis similar to prior. *? Mild hepatic steatosis. *? Technically limited exam performed with an appreciated protocol the entirety of the abdomen was not imaged on all sequences. ? The findings and recommendations were discussed with Willian Quigley MD by telephone at 09/30/2022 3:47 PM and it was ascertained that the content and urgency of the report was understood at the time of direct communication. Assessment & Plan Assessment & Plan (1) Hydronephrosis, left: Code(s): N13.30 - Unspecified hydronephrosis (2) Renal mass: Code(s): N28.89 - Other specified disorders of kidney and ureter (3) Urinary retention with incomplete bladder emptying: Code(s): R33.9 - Retention of urine, unspecified (4) Recurrent UTI: Code(s): N39.0 - Urinary tract infection, site not specified Plan Will send for urine for culture. Lasix renal scan was ordered for further evaluation of the left hydronephrosis. Referral to Dr. Quiñones for right renal cell carcinoma. Prescribed Macrobid 100 mg BID for 10 days, and complete doxycycline in 5 days. Tele-health follow-up in 3 weeks to review the nuclear lasix renal scan results. Orders: Orders AMB Urinalysis Automated 10/10/22 Z13.9 - Encounter for screening, unspecified NM renal flow w pharm int 10/10/22 N13.30 - Unspecified hydronephrosis Urine Culture 10/10/22 N39.0 - Urinary tract infection, site not specified Referrals Urology Referral N28.89 - Other specified disorders of kidney and ureter Medications: New nitrofurantoin monohyd/m-cryst 100 mg (Macrobid) must administer with a meal/food 100 mg PO BID 20 caps 0RF doxycycline hyclate after completing 10 day course of macrobid, start doxycycline 100 mg PO BID 10 tabs 0RF 5 days Patient Instructions: The patient had an opportunity to ask questions regarding treatment plan. All questions were answered. Imaging, Laboratory studies and physical exam results were discussed and reviewed in detail. No major barriers to understanding were identified. The patient expressed understanding and agreement with the above treatment plan.? ? ? The patient is aware they should contact our office by phone for worsening of their current condition or the appearance of new symptoms. Compliance is encouraged with any medications and followup testing that is ordered.? ? ? It is a privilege to be allowed the opportunity to participate in the urologic care of your patient. If you have any questions or concerns regarding treatment for the above conditions please do not hesitate to contact me. The office telephone contact is [phone].? ? ? This note is constructed in part using voice recognition software. While every effort has been made to ensure accuracy mold closer helper errors may have been included.? ? ? Yours sincerely,? ? ? Willian Quigley MD? ? Coding Level of Care Code Est Pt Level 4 (13674) Diagnoses Hydronephrosis, left N13.30 Renal mass N28.89 Urinary retention with incomplete bladder emptying R33.9 Recurrent UTI N39.0
== END 2022-10-10 15:16 | disposition home or self-care (01) ==
PROVIDERS: PCP Internal Medicine; Visit Provider Urology
DX: N13.30 Unspecified hydronephrosis (principal); N28.89 Other specified disorders of kidney and ureter; R33.9 Retention of urine, unspecified; N39.0 Urinary tract infection, site not specified
CPT/HCPCS: 99214

== ENCOUNTER 2022-10-10 14:30 | Outpatient (REF) | payer OTHER, SELFPAY | END 2022-10-10 14:31 | disposition home or self-care (01) | LOC: HO.LAB 14:30 | PROVIDERS: PCP Internal Medicine; Visit Provider Urology | DX: N39.0 Urinary tract infection, site not specified (principal) | CPT/HCPCS: 81003; 87086; 87088; 87186; 99212 ==

== ENCOUNTER → 2022-10-27 12:33 | Outpatient (REF) | payer OTHER, SELFPAY ==
--- NOTE | ~2022-10-27 | NM_ITS ---
EXAMINATION: NM RENOGRAM WITH LASIX CLINICAL INFORMATION: Unspecified moderate left-sided hydroureteronephrosis. Patient is known to have 5.3 cm heterogeneous enhancing exophytic right upper pole of renal mass most recently seen on the MRI of the abdomen done on 09/29/2022. COMPARISON: MRI of the abdomen done on 09/29/2022. CT of the abdomen and pelvis done on 06/09/2022. TECHNIQUE: Dynamic renal scintigraphy was performed after intravenous administration of 10.0 mCi Tc-99m Technetium 99m DTPA and images were obtained for 30 minutes. The patient had a Solis's catheter within the bladder.40 mg of furosemide was administered at 30 minutes and continued dynamic imaging of the abdomen/pelvis was obtained only for 10 minutes following administration of Lasix. No further dynamic imaging could be obtained beyond 10 minutes at the request of the patient (the patient wanted to void in spite of having a Solis's catheter already placed). A Postvoid image however was obtained at the end. FINDINGS: The split renal function is as follows: Left kidney 41% and the right kidney 59% of total renal uptake. Left Kidney: Normal perfusion. Mild fullness of the left renal pelvicalyceal system is noted. Presence or absence of obstruction remain indeterminate since standard 30 minutes post Lasix images could not be obtained. Right Kidney: Normal perfusion. The pelvicalyceal system appeared decompressed on the pre-Lasix images. No significant change on the initial 10 minutes post Lasix images. Post Lasix T1/2 accordingly could not be calculated. The post void image shows no evidence of any reflux. NM/NM renal flow w pharm int IMPRESSION: 1. Differential renal function: Left 41%, Right 59%. 2. Presence or absence of urinary tract obstruction could not be evaluated on this study since the study was aborted 10 minutes following administration of intravenous Lasix at the request of the patient.
== END ==
LOC: HO.NUCMED 12:33
PROVIDERS: Visit Provider Urology
DX: N13.30 Unspecified hydronephrosis (principal)
CPT/HCPCS: 78708; A9539; J1940

== ENCOUNTER 2022-11-03 13:01 | Outpatient (AMB) | payer OTHER, SELFPAY ==
--- NOTE | 2022-11-03 13:02 | A.OFFVIS_ITS ---
Intake Intake Visit Reasons: 3w/US Intake Note: Patient presents today for a follow-up on US Results, Completed on 10/27/2022: Meds- None Allergies to Antibiotic- No Known Allergies Blood Thinner- Eliquis Coach Operator Required: No Accompanied by: Self / Same As Patient Allergies atorvastatin [ATORVASTATIN] Allergy (Intermediate, Verified 11/03/22 13:02) SWELLING morphine [MORPHINE] Allergy (Intermediate, Verified 11/03/22 13:02) RASH zolpidem [From AMBIEN] Adverse Reaction (Intermediate, Verified 11/03/22 13:02) SLEEP WALKS HPI HPI Comments History of Present Illness Details Shweta is a 77-year-old female who presents today to the office via Tele-health visit for a follow-up. 11/03/2022? She is followed today via Tele-health to discuss renal scan results. She has been followed for chronic urinary tract infections and incomplete bladder emptying, currently with belcher in place, she was noted to have a renal mass. She was last seen by me on 10/10/2022 for MRI results. The patient was referral to Dr. Quiñones for right renal mass. I reviewed the renal scan results from 10/27/2022 revealed differential renal function: Left 41%, Right 59%.? I reviewed the urine culture results from 10/10/2022 which came back Klebsiella pneumonia? > 100,000 cfu/mL , and Organism 2 Enterococcus faecalis > 100,000 cfu/mL.? I spoke with her daughter regarding lasix renal scan. The patient is still waiting to hear from Dr. Quiñones. Review of charts: MRI results from 09/29/2022 revealed a 5.3 cm heterogeneous T2 heterogeneously enhancing exophytic right upper pole renal mass with loss of signal on opposed phase imaging, suspicious for clear cell renal cell carcinoma.? Moderate left hydronephrosis similar to prior.? 10/10/22-Referral to Dr. Quiñones for right renal mass. 11/03/2022: plan: Will arrange VNA to change the Belcher catheter every [address] Quiñones pending. [facility] Medical History CKD (chronic kidney disease) stage 4, GFR 15-29 ml/min CAD (coronary artery disease) History of myocardial infarction Type 2 diabetes mellitus with unspecified complications Paroxysmal atrial fibrillation Chronic kidney disease, stage 3 On beta lanette at home On anticoagulant therapy Multiple falls LETHA (acute kidney injury) Atrial flutter Hyperglycemia Arthritis Limited mobility Chronic pain Anxiety and depression Myocardial infarction Asthma Urgency incontinence High cholesterol Diabetes mellitus Lateral malleolar fracture HTN (hypertension) Surgical History History of cystoscopy Hx of cholecystectomy History of cataract extraction History of heart artery stent Hx of colonoscopy H/O neck surgery Family History Father No problems noted. Mother Diabetes High blood pressure Stomach cancer Social History Household Members: None Housing: Apartment Are you a primary care program resident to a significant other at home: No Unable to assess alcohol history related to: Unable to respond and Unknown Alcohol intake: never Patient Tobacco Use Status: Former Tobacco user Quit Date: 2005 Tobacco use type: Cigarette Years Smoked: 30-40 years Second Hand Smoke Exposure: No Substance Use Type: Crack/Cocaine service: No Current occupational status: disabled Review of Systems Const All systems reviewed & are unremarkable except as noted in HPI and below Reports no additional complaints Eyes Reports no additional complaints ENT Reports no additional complaints Card Denies dyspnea Resp Denies cough and Denies dyspnea GI Reports no additional complaints Reports no additional complaints Musc Reports no additional complaints Skin/Breast Denies rash and Denies unusual bruising Neuro Reports no additional complaints Psych Reports no additional complaints Endo Reports no additional complaints Kurtis/Lymph Reports no additional complaints Aller/Immun Reports no additional complaints Results Reviewed Results Reviewed: Ordered:? Urine Culture? Procedure?Result?Verified?Site ? Urine Culture? Final?10/13/22-5 ? ? ?Organism 1?Klebsiella pneumoniae ? Quant?> 100,000 cfu/mL ? ESBL Note:? NOTE: Extended-Spectrum Beta-Lactamase enzyme present ? ? ?Organism 2?Enterococcus faecalis ? Quant?> 100,000 cfu/mL ? Kleb pneum?E faecalis? M.I.C.? ? RX? ? ?M.I.C.? ? RX? --------- ---? ? --------- ---?Ampicillin?>=32?R? ? ?<=2? S?Ceftriaxone? >=64?R?Ertapenem? <=0.12? ? ?S?Gentamicin?<=1? S?Levofloxacin?2? R? ? ?1? S?Nitrofurantoin?32?S? ? ?<=16?S?Tetracycline? >=16?R?Trimethoprim/Sulfamethoxazole? >=320? ? ? R?Vancomycin? 1? S Date of Service: 10/27/22 EXAMINATION: NM RENOGRAM WITH LASIX CLINICAL INFORMATION:? Unspecified moderate left-sided hydroureteronephrosis. Patient is known to have 5.3 cm heterogeneous enhancing exophytic right upper pole of renal mass most recently seen on the MRI of the abdomen done on 09/29/2022. COMPARISON:? MRI of the abdomen done on 09/29/2022. CT of the abdomen and pelvis done on 06/09/2022. FINDINGS: The split renal function is as follows:? Left kidney 41% and the right kidney 59% of total renal uptake.?? Left Kidney: Normal perfusion. Mild fullness of the left renal pelvicalyceal system is noted. Presence or absence of obstruction remain indeterminate since standard 30 minutes post Lasix images could not be obtained. Right Kidney: Normal perfusion. The pelvicalyceal system appeared decompressed on the pre-Lasix images. No significant change on the initial 10 minutes post Lasix images. Post Lasix T1/2 accordingly could not be calculated. The post void image shows no evidence of any reflux. IMPRESSION: 1. Differential renal function: Left 41%, Right 59%. 2. Presence or absence of urinary tract obstruction could not be evaluated on this study since the study was aborted 10 minutes following administration of intravenous Lasix at the request of the patient. Assessment & Plan Assessment & Plan (1) Hydronephrosis, left: Code(s): N13.30 - Unspecified hydronephrosis (2) Renal mass: Code(s): N28.89 - Other specified disorders of kidney and ureter (3) Urinary retention with incomplete bladder emptying: Code(s): R33.9 - Retention of urine, unspecified (4) Recurrent UTI: Code(s): N39.0 - Urinary tract infection, site not specified Plan Will arrange VNA to change the Belcher catheter every [address] Quiñones pending. Patient Instructions: The patient had an opportunity to ask questions regarding treatment plan. All questions were answered. Imaging, Laboratory studies and physical exam results were discussed and reviewed in detail. No major barriers to understanding were identified. The patient expressed understanding and agreement with the above treatment plan.? ? ? The patient is aware they should contact our office by phone for worsening of their current condition or the appearance of new symptoms. Compliance is encouraged with any medications and followup testing that is ordered.? ? ? It is a privilege to be allowed the opportunity to participate in the urologic care of your patient. If you have any questions or concerns regarding treatment for the above conditions please do not hesitate to contact me. The office telephone contact is [phone].? ? ? This note is constructed in part using voice recognition software. While every effort has been made to ensure accuracy data capture clerk errors may have been included.? ? ? Yours sincerely,? ? ? Willian Quigley MD? ? Telehealth Telehealth Location of provider rendering services: practice address Location of patient: address on file Patient Identification confirmed using: Name, : Yes Telehealth method: voice only Patient verbally consented to treatment: Yes Patient verbally consented to billing insurance company: Yes Patient informed of any privacy concerns related to visit: Yes Minutes spent on Phone/Video with Pt.: 15 Coding Level of Care Code Tele Est Pt Level 3 (97494) Diagnoses Hydronephrosis, left N13.30 Renal mass N28.89 Urinary retention with incomplete bladder emptying R33.9 Recurrent UTI N39.0
== END 2022-11-03 16:03 | disposition home or self-care (01) ==
LOC: HO.HUSH 13:01
PROVIDERS: PCP Internal Medicine; Visit Provider Urology
DX: N13.30 Unspecified hydronephrosis (principal); N28.89 Other specified disorders of kidney and ureter; R33.9 Retention of urine, unspecified; N39.0 Urinary tract infection, site not specified
CPT/HCPCS: 99213

== ENCOUNTER → 2022-11-03 13:01 | Outpatient (BNVA) | payer OTHER, SELFPAY | PROVIDERS: PCP Internal Medicine; Visit Provider Urology ==

== ENCOUNTER 2022-12-12 14:22 | Outpatient (AMB) | payer OTHER, SELFPAY ==
--- NOTE | 2022-12-12 14:51 | A.OFFVIS_ITS ---
Intake Intake Visit Reasons: follow up after testing Allergies atorvastatin [ATORVASTATIN] Allergy (Intermediate, Verified 11/03/22 13:02) SWELLING morphine [MORPHINE] Allergy (Intermediate, Verified 11/03/22 13:02) RASH zolpidem [From AMBIEN] Adverse Reaction (Intermediate, Verified 11/03/22 13:02) SLEEP WALKS HPI HPI Comments History of Present Illness Details Shweta is a 77-year-old female who presents today to the office for a follow-up. 12/12/2022-- Shweta is a 77-year-old female who is followed due to voiding dysfunction currently with Solis catheter for urinary retention. She was noted on imaging to have a right renal mass suspicious for neoplasm and left hydronephrosis. The patient had a renal scan ordered to evaluate the left kidney to rule out obstruction, the test was not completed. The patient was referred to Dr. Quiñones for further management of the renal mass. The patient is here today with her daughter and they state that they have seen Dr. Quiñones however she wants further clarification of the left kidney function as well as discussed consideration for right kidney mass biopsy. The patient has VNA support at home for catheter changes every 4 weeks. Review of charts: I reviewed the renal scan results from 10/27/2022 revealed differential renal function: Left 41%, Right 59%.? Study in complete I reviewed the urine culture results from 10/10/2022 which came back Klebsiella pneumonia? > 100,000 cfu/mL , and Organism 2 Enterococcus faecalis > 100,000 cfu/mL.? MRI results from 09/29/2022 revealed a 5.3 cm heterogeneous T2 heterogeneously enhancing exophytic right upper pole renal mass with loss of signal on opposed phase imaging, suspicious for clear cell renal cell carcinoma.? Moderate left hydronephrosis similar to prior.? 10/10/22-Referral to Dr. Quiñones for right renal mass. 12/12/2022: Plan: Repeat Lasix NM renal scan was ordered today in the office. Follow-up post [facility] Medical History CKD (chronic kidney disease) stage 4, GFR 15-29 ml/min CAD (coronary artery disease) History of myocardial infarction Type 2 diabetes mellitus with unspecified complications Paroxysmal atrial fibrillation Chronic kidney disease, stage 3 On beta lanette at home On anticoagulant therapy Multiple falls LETHA (acute kidney injury) Atrial flutter Hyperglycemia Arthritis Limited mobility Chronic pain Anxiety and depression Myocardial infarction Asthma Urgency incontinence High cholesterol Diabetes mellitus Lateral malleolar fracture HTN (hypertension) Surgical History History of cystoscopy Hx of cholecystectomy History of cataract extraction History of heart artery stent Hx of colonoscopy H/O neck surgery Family History Father No problems noted. Mother Diabetes High blood pressure Stomach cancer Social History Household Members: None Housing: Apartment Are you a primary neonatal intensive care nurse to a significant other at home: No Unable to assess alcohol history related to: Unable to respond and Unknown Alcohol intake: never Patient Tobacco Use Status: Former Tobacco user Quit Date: 2005 Tobacco use type: Cigarette Years Smoked: 30-40 years Second Hand Smoke Exposure: No Substance Use Type: Crack/Cocaine service: No Current occupational status: disabled Review of Systems Const All systems reviewed & are unremarkable except as noted in HPI and below Reports no additional complaints Eyes Reports no additional complaints ENT Reports no additional complaints Card Denies dyspnea Resp Denies cough and Denies dyspnea GI Reports no additional complaints Reports no additional complaints Musc Reports no additional complaints Skin/Breast Denies rash and Denies unusual bruising Neuro Reports no additional complaints Psych Reports no additional complaints Endo Reports no additional complaints Kurtis/Lymph Reports no additional complaints Aller/Immun Reports no additional complaints Assessment & Plan Assessment & Plan (1) Hydronephrosis, left: Code(s): N13.30 - Unspecified hydronephrosis (2) Renal mass: Code(s): N28.89 - Other specified disorders of kidney and ureter (3) Urinary retention with incomplete bladder emptying: Code(s): R33.9 - Retention of urine, unspecified (4) Recurrent UTI: Code(s): N39.0 - Urinary tract infection, site not specified Plan Repeat Lasix renal scan was ordered today in the office. Follow-up post Orders: Orders NM renal flow w pharm int 12/12/22 N13.30 - Unspecified hydronephrosis, N28.89 - Other specified disorders of kidney and ureter Patient Instructions: The patient had an opportunity to ask questions regarding treatment plan. All questions were answered. Imaging, Laboratory studies and physical exam results were discussed and reviewed in detail. No major barriers to understanding were identified. The patient expressed understanding and agreement with the above treatment plan. The patient is aware they should contact our office by phone for worsening of their current condition or the appearance of new symptoms. Compliance is encouraged with any medications and followup testing that is ordered. It is a privilege to be allowed the opportunity to participate in the urologic care of your patient. If you have any questions or concerns regarding treatment for the above conditions please do not hesitate to contact me. The office telephone contact is [phone]. This note is constructed in part using voice recognition software. While every effort has been made to ensure accuracy plastics seasoner operator errors may have been inclu ded. Yours sincerely, Willian Quigley MD Coding Level of Care Code Est Pt Level 4 (26521) Diagnoses Hydronephrosis, left N13.30 Renal mass N28.89 Urinary retention with incomplete bladder emptying R33.9 Recurrent UTI N39.0
== END 2022-12-12 14:51 | disposition home or self-care (01) ==
LOC: HO.HUSH 14:22
PROVIDERS: PCP Internal Medicine; Visit Provider Urology
DX: N13.30 Unspecified hydronephrosis (principal); N28.89 Other specified disorders of kidney and ureter; R33.9 Retention of urine, unspecified; N39.0 Urinary tract infection, site not specified
CPT/HCPCS: 99214

== ENCOUNTER → 2022-12-12 14:22 | Outpatient (BNVA) | payer OTHER, SELFPAY | PROVIDERS: PCP Internal Medicine; Visit Provider Urology | DX: N13.30 Unspecified hydronephrosis (principal); N28.89 Other specified disorders of kidney and ureter; N39.0 Urinary tract infection, site not specified; R33.9 Retention of urine, unspecified | CPT/HCPCS: 99212 ==

== ENCOUNTER 2023-01-09 | Outpatient (REF) | payer OTHER, SELFPAY ==
[2023-01-10 12:02] LABS: Appearance Urine Turbid; Color Urine Yellow; Glucose Urine UA Negative (Negative); Leukocyte Esterase Urine Large (3+) (Negative); Nitrite Urine Positive (Negative); PH 6.5 (5.0-9.0); Specific Gravity - Urine 1.015 (1.005-1.025); UMIC TRIGGER UACC YES; Urine Blood Moderate (2+) (Negative); Urine Ketones Negative (Negative); Urine Protein 30 (1+) mg/dL (Neg-Trace)
[2023-01-10 12:17] LABS: Bacteria Urine 4+ (None Seen); Squamous Epithelial Cell Urine >20 /HPF (0-2); UACC Culture Trigger YES; WBC Clumps Urine Present; WBC Urine >50 /HPF (0-5)
== END 2023-01-09 00:01 | disposition home or self-care (01) ==
LOC: HO.HVNA
PROVIDERS: Visit Provider Urology
DX: N39.0 Urinary tract infection, site not specified (principal); N31.9 Neuromuscular dysfunction of bladder, unspecified
CPT/HCPCS: 81001; 81003; 87086

== ENCOUNTER → 2023-01-17 12:25 | Outpatient (REF) | payer OTHER, SELFPAY ==
--- NOTE | ~2023-01-17 | NM_ITS ---
EXAMINATION: NM KIDNEY IMAGING CLINICAL INFORMATION: Unspecified left hydronephrosis. COMPARISON: Ultrasound retroperitoneal complete 07/25/2022 and renal scan 10/27/2022. TECHNIQUE: Following intravenous administration of 10 mCi of 99M technetium DTPA, flow, followed by static images up to 30 minutes were obtained. At 30 minutes, 40 mg of IV Lasix was injected and further imaging was obtained for next the 30 minutes. FINDINGS: On initial imaging, there is perfusion to the left kidney. There is mild diminished perfusion to the right kidney. There is normal left renal cortical uptake with slightly diminished activity in the right kidney with the kidney appearing slightly smaller in size. There is excretion of isotope in both kidneys. The split renal function left kidney is 86.1% and right kidney is 13.9%. Time to max activity in the left kidney is 5 minutes and right kidney is 8 minutes. No hydronephrosis or increased activity seen in the renal pelvis in either kidney at 30 minutes. Post Lasix at 30 minutes, there is no signal change in the renal excretion up to 60 minutes of imaging. NM/NM renal flow w pharm int IMPRESSION: Slightly diminished right kidney perfusion, function and excretion. It has slightly worsened since the last renal scan of 10/27/2022. The split renal function of left kidney is 86.1 % and right kidney is 13.9%. Normal left kidney perfusion, function and delayed excretion. There is no response of either kidney to Lasix from 30 to 60 minutes.
== END ==
LOC: HO.NUCMED 12:25
PROVIDERS: PCP Internal Medicine; Visit Provider Urology
DX: N13.30 Unspecified hydronephrosis (principal); N28.89 Other specified disorders of kidney and ureter
CPT/HCPCS: 78708; A9539; J1940

== ENCOUNTER 2023-01-26 12:24 | Outpatient (AMB) | payer OTHER, SELFPAY ==
--- NOTE | 2023-01-26 12:29 | A.OFFVIS_ITS ---
Intake Intake Visit Reasons: 1m follow up Intake Note: Patient presents today for a 6 mo follow-up, patient on a Cath: Meds- Sulfa & Cipro Allergies to Antibiotic- No Known Allergies Blood Thinner- Eliquis Trailer Steerer Required: No Accompanied by: Family/Other Allergies atorvastatin [ATORVASTATIN] Allergy (Intermediate, Verified 01/26/23 12:30) SWELLING morphine [MORPHINE] Allergy (Intermediate, Verified 01/26/23 12:30) RASH zolpidem [From AMBIEN] Adverse Reaction (Intermediate, Verified 01/26/23 12:30) SLEEP WALKS HPI HPI Comments History of Present Illness Details Shweta is a 77-year-old female who presents today to the office for a follow-up. 01/26/23-- Shweta is a 77-year-old femal e who is followed due to voiding dysfunction currently with Belcher catheter for urinary retention. She was noted on imaging to have a right renal mass suspicious for neoplasm and left hydronephrosis. The patient had a renal scan ordered to evaluate the left kidney to rule out obstruction. The patient was referred to Dr. Quiñones for f urther management of the renal mass. The patient has VNA support at home for catheter changes every 4 weeks. Repeat Lasix renal scan was done on 01/17/23-- I have reviewed results: Diminished function, perfusion and execretion of the right kidney. Normal left kidney perfusion, function and delayed excretion. There is no response of either kidney to Lasix from 30 to 60 minutes. The split renal function of left kidney is 86.1 % and right kidney is 13.9%. Review of charts: --12/12/2022-- I reviewed the renal scan results from 10/27/2022 revealed differential renal fu nction: Left 41%, Right 59%.? Study was incomplete Labs/Results: urine culture results from 10/10/2022 which came back Klebsiella pneumonia? > 100,000 cfu/mL , and Organism 2 Enterococcus faecalis > 100,000 cfu/mL.? MRI results from 09/29/2022 revealed a 5.3 cm heterogeneous T2 heterogeneously enhancing exophytic right upper pole renal mass with loss of signal on opposed phase imaging, suspicious for clear cell renal cell carcinoma.? Moderate left hydronephrosis similar to prior.? 10/10/22-Referral to Dr. Quiñones for right renal mass. 01/26/23 Plan: Schedule cystoscopy Left ureteral stent [facility] Medical History (Updated 12/12/22 @ 14:46 by Willian Quigley MD) CKD (chronic kidney disease) stage 4, GFR 15-29 ml/min CAD (coronary artery disease) History of myocardial infarction Type 2 diabetes mellitus with unspecified complications Paroxysmal atrial fibrillation Chronic kidney disease, stage 3 On beta lanette at home On anticoagulant therapy Multiple falls LETHA (acute kidney injury) Atrial flutter Hyperglycemia Arthritis Limited mobility Chronic pain Anxiety and depression Myocardial infarction Asthma Urgency incontinence High cholesterol Diabetes mellitus Lateral malleolar fracture HTN (hypertension) Surgical History (Updated 03/03/23 @ 13:07 by Natasha Prasad RN) History of cystoscopy Hx of cholecystectomy History of cataract extraction History of heart artery stent Hx of colonoscopy H/O neck surgery Family History Father No problems noted. Mother Diabetes High blood pressure Stomach cancer Social History Household Members: None Housing: Apartment Are you a primary childbirth and infant care teacher to a significant other at home: No Unable to assess alcohol history related to: Unable to respond and Unknown Alcohol intake: never Patient Tobacco Use Status: Former Tobacco user Quit Date: 2005 Tobacco use type: Cigarette Years Smoked: 30-40 years Second Hand Smoke Exposure: No Substance Use Type: Crack/Cocaine service: No Current occupational status: disabled Results Reviewed Results Reviewed: Date of Service: 01/17/23 EXAMINATION: NM KIDNEY IMAGING CLINICAL INFORMATION: Unspecified left hydronephrosis. COMPARISON: Ultrasound retroperitoneal complete 07/25/2022 and renal scan 10/27/2022. TECHNIQUE: Following intravenous administration of 10 mCi of 99M technetium DTPA, flow, followed by static images up to 30 minutes were obtained. At 30 minutes, 40 mg of IV Lasix was injected and further imaging was obtained for next the 30 minutes. FINDINGS: On initial imaging, there is perfusion to the left kidney. There is mild diminished perfusion to the right kidney. There is normal left renal cortical uptake with slightly diminished activity in the right kidney with the kidney appearing slightly smaller in size. There is excretion of isotope in both kidneys. The split renal function left kidney is 86.1% and right kidney is 13.9%. Time to max activity in the left kidney is 5 minutes and right kidney is 8 minutes. No hydronephrosis or increased activity seen in the renal pelvis in either kidney at 30 minutes. Post Lasix at 30 minutes, there is no signal change in the renal excretion up to 60 minutes of imaging. IMPRESSION: Slightly diminished right kidney perfusion, function and excretion. It has slightly worsened since the last renal scan of 10/27/2022. The split renal function of left kidney is 86.1 % and right kidney is 13.9%. Normal left kidney perfusion, function and delayed excretion. There is no response of either kidney to Lasix from 30 to 60 minutes. Assessment & Plan Assessment & Plan (1) Hydronephrosis, left: Code(s): N13.30 - Unspecified hydronephrosis (2) Renal mass: Code(s): N28.89 - Other specified disorders of kidney and ureter (3) Urinary retention with incomplete bladder emptying: Code(s): R33.9 - Retention of urine, unspecified (4) Recurrent UTI: Code(s): N39.0 - Urinary tract infection, site not specified Plan Chronic belcher Schedule cysto left ureteral stent renal mass - pt has been referred to Dr. Quiñones who is monitoring Patient Instructions: The patient had an opportunity to ask questions regarding treatment plan. All questions were answered. Imaging, Laboratory studies and physical exam results were discussed and reviewed in detail. No major barriers to understanding were identified. The patient expressed understanding and agreement with the above treatment plan. The patient is aware they should contact our office by phone for worsening of their current condition or the appearance of new symptoms. Compliance is encouraged with any medications and followup testing that is ordered. It is a privilege to be allowed the opportunity to participate in the urologic care of your patient. If you have any questions or concerns regarding treatment for the above conditions please do not hesitate to contact me. The office telephone contact is [phone]. This note is constructed in part using voice recognition software. While every effort has been made to ensure accuracy police detention attendant errors may have been included. Yours sincerely, Willian Quigley MD Coding Level of Care Code Est Pt Level 4 (90246) Diagnoses Hydronephrosis, left N13.30 Renal mass N28.89 Urinary retention with incomplete bladder emptying R33.9 Recurrent UTI N39.0
== END 2023-01-26 13:44 | disposition home or self-care (01) ==
PROVIDERS: PCP Internal Medicine; Visit Provider Urology
DX: N13.30 Unspecified hydronephrosis (principal); N28.89 Other specified disorders of kidney and ureter; R33.9 Retention of urine, unspecified; N39.0 Urinary tract infection, site not specified
CPT/HCPCS: 99214

== ENCOUNTER → 2023-01-26 12:24 | Outpatient (BNVA) | payer OTHER, SELFPAY | PROVIDERS: PCP Internal Medicine; Visit Provider Urology | DX: N13.30 Unspecified hydronephrosis (principal); N28.89 Other specified disorders of kidney and ureter; N39.0 Urinary tract infection, site not specified; R33.9 Retention of urine, unspecified | CPT/HCPCS: 99212 ==

== ENCOUNTER 2023-03-07 08:29 | Day surgery (SDC) | payer OTHER, SELFPAY ==
--- NOTE | 2023-03-06 12:08 | P.CONAN_ITS ---
HPI - Anesthesia Eval Consult details Narrative: 77yo F for Cystoscopy retro grade, possible utereroscopy w/ left Stent Placement PCP clearance note pending Eliquis for afib Follows [facility] [place] cardiology. OK to proceed and ok to hold eliquis. ON LICENSE OF [facility] Active Problems Active Problems: All Active Problems (Updated 12/12/22 @ 14:46 by Willian Quigley MD) Right renal mass (Acute) Recurrent UTI (Acute) Hydronephrosis, left (Acute) Pyuria (Acute) Renal mass (Acute) Urinary incontinence without sensory awareness (Acute) Hydroureteronephrosis (Acute) Urinary retention with incomplete bladder emptying (Acute) Chronic UTI (urinary tract infection) (Acute) Frequency of micturition (Acute) HTN (hypertension) (Acute) Diabetes mellitus (Acute) High cholesterol (Acute) Urgency incontinence (Acute) Past Medical History Medical History (Updated 12/12/22 @ 14:46 by Willian Quigley MD) CKD (chronic kidney disease) stage 4, GFR 15-29 ml/min CAD (coronary artery disease) History of myocardial infarction Type 2 diabetes mellitus with unspecified complications Paroxysmal atrial fibrillation Chronic kidney disease, stage 3 On beta lanette at home On anticoagulant therapy Multiple falls LETHA (acute kidney injury) Atrial flutter Hyperglycemia Arthritis Limited mobility Chronic pain Anxiety and depression Myocardial infarction Asthma Urgency incontinence High cholesterol Diabetes mellitus Lateral malleolar fracture HTN (hypertension) Family History Family History Father No problems noted. Mother Diabetes High blood pressure Stomach cancer Family history of problems with anesthesia: No Surgical History Surgical History (Updated 03/03/23 @ 13:07 by Natasha Prasad RN) History of cystoscopy Hx of cholecystectomy History of cataract extraction History of heart artery stent Hx of colonoscopy H/O neck surgery History of Problems with Anesthesia: No Social History Social History Household Members: None Housing: Apartment Are you a primary home health care case manager to a significant other at home: No Unable to assess alcohol history related to: Unable to respond and Unknown Alcohol intake: never Patient Tobacco Use Status: Former Tobacco user Quit Date: 2005 Tobacco use type: Cigarette Years Smoked: 30-40 years Second Hand Smoke Exposure: No Substance Use Type: Crack/Cocaine service: No Current occupational status: disabled Meds Allergies Allergy/AdvReac Type Severity Reaction Status Date / Time atorvastatin [ATORVASTATIN] Allergy Intermediate SWELLING Verified 01/26/23 12:30 morphine [MORPHINE] Allergy Intermediate RASH Verified 01/26/23 12:30 zolpidem [From AMBIEN] AdvReac Intermediate SLEEP WALKS Verified 01/26/23 12:30 Home Medications Medication Instructions Recorded Confirmed Last Taken Type lancing device with lancets kit #1 ea 03/24/21 10/10/22 Unknown History (BioVex Lancing Device kit) metoprolol tartrate 25 mg tablet 25 mg PO BID 07/15/21 03/03/23 11/03/21 08:15 History albuterol sulfate 90 mcg/actuation 2 puff inhalation QID PRN 11/30/21 03/03/23 Unknown History aerosol inhaler Respiratory Distress duloxetine 30 mg capsule,delayed 30 mg PO DAILY 11/30/21 03/03/23 Unknown History release ferrous sulfate 325 mg (65 mg 325 mg PO DAILY 11/30/21 03/03/23 Unknown History iron) tablet fluoxetine 20 mg capsule 20 mg PO DAILY 11/30/21 03/03/23 Unknown History insulin lispro 100 unit/mL 6 unit subcut TID 06/09/22 03/03/23 Unknown History subcutaneous pen (Humalog KwikPen (U-100) Insulin) gabapentin 600 mg tablet 600 mg PO TID 07/07/22 03/03/23 Unknown History trazodone 50 mg tablet 50 - 100 mg PO BEDTIME PRN insomnia 07/07/22 03/03/23 Unknown History Exam Height,Weight and Vital Signs: Height 5 ft 2 in Narrative Narrative: ECHO 06/2022 Conclusions: - 1. Normal LV systolic function with LVEF of 60 65% 2. Normal cardiac valvular Dopplers 3. Mildly elevated at worker systolic pressure 4. No gross pericardial effusion EKG 05/2022 Vent. Rate : 067 BPM Atrial Rate : 067 BPM P-R Int : 176 ms QRS Dur : 078 ms QT Int : 410 ms P-R-T Axes : 085 044 027 degrees QTc Int : 433 ms Normal sinus rhythm Normal ECG When compared with ECG of 09-JUN-2022 15:19, No significant change was found Assessment and Plan Assessment Anesthesia Assessment: Chart Reviewed Final Anesthetic Review Family History of Problems with Anesthesia: No History of Problems with Anesthesia: No
--- NOTE | ~2023-03-07 | FL_ITS ---
EXAMINATION: XR FLUOROSCOPY WITH IMAGES CLINICAL INFORMATION: Cystoscopy. COMPARISON: CT abdomen and pelvis 06/09/2022. TECHNIQUE: Fluoroscopy Supervised By: Dr. Quigley. Fluoroscopy Time: 43.3 seconds. Cumulative Dose: 30.57 mGy. Images: 3. FINDINGS: Imaging demonstrates a wire in the left-sided collecting system which appears nondilated. The final image demonstrates the distal end of an internally dwelling double-J ureteral stent with its tip in the bladder. FL/FL guidance in OR IMPRESSION: Fluoroscopy and spot films provided during cystoscopy and stent placement.
[2023-03-07 11:17] VITALS: BMI 45.1
[2023-03-07 11:25] VITALS: BP 138/78; PULSE 71; RESP 18; TEMP 36.8; O2SAT 96
[2023-03-07 11:27] LABS: Hematocrit 27.7 % (37.0-47.0); Hemoglobin 8.6 g/dl (12.0-16.0); Mean Corpuscular Hemoglobin 29.5 pg (27.0-33.0); Mean Corpuscular Volume 94.9 fL (80.0-98.0); Mean Platelet Volume 9.8 fL (9.4-12.3); Platelet Count 282 X10*3/uL (160-400); Red Blood Count 2.92 X10*6/uL (4.20-5.50); Red Cell Distribution Width 15.3 % (11.0-16.0); White Blood Count 8.5 X10*3/uL (4.8-10.8)
[2023-03-07 11:28] LABS: Glucose, Whole Blood 90 mg/dL (60-115)
[2023-03-07] MEDS: Lactated Ringers 1,000 ML 100 ML IVCONT (11:32)
[2023-03-07 11:50] LABS: Anion Gap 16 (12-20); Blood Urea Nitrogen 60 mg/dL (9-16); Calcium 7.9 mg/dL (8.4-10.2); Carbon Dioxide 20 mmol/L (22-29); Chloride 115 mmol/L (96-108); Creatinine Clr Calc Pharmacy 16.6; Estimated Glomerular Filt Rate 13; Glucose Fasting 91 mg/dL (60-99); Potassium 4.5 mmol/L (3.3-5.1); Sodium 146 mmol/L (135-145)
--- NOTE | 2023-03-07 12:52 | HO.ANESPROP2 ---
[facility] Active Problems Active Problems: All Active Problems (Updated 12/12/22 @ 14:46 by Willian Quigley MD) Right renal mass (Acute) Recurrent UTI (Acute) Hydronephrosis, left (Acute) Pyuria (Acute) Renal mass (Acute) Urinary incontinence without sensory awareness (Acute) Hydroureteronephrosis (Acute) Urinary retention with incomplete bladder emptying (Acute) Chronic UTI (urinary tract infection) (Acute) Frequency of micturition (Acute) HTN (hypertension) (Acute) Diabetes mellitus (Acute) High cholesterol (Acute) Urgency incontinence (Acute) Past Medical History Medical History CKD (chronic kidney disease) stage 4, GFR 15-29 ml/min CAD (coronary artery disease) History of myocardial infarction Type 2 diabetes mellitus with unspecified complications Paroxysmal atrial fibrillation Chronic kidney disease, stage 3 On beta lanette at home On anticoagulant therapy Multiple falls LETHA (acute kidney injury) Atrial flutter Hyperglycemia Arthritis Limited mobility Chronic pain Anxiety and depression Myocardial infarction Asthma Urgency incontinence High cholesterol Diabetes mellitus Lateral malleolar fracture HTN (hypertension) Family History Family History Father No problems noted. Mother Diabetes High blood pressure Stomach cancer Family history of problems with anesthesia: No Surgical History Surgical History History of cystoscopy Hx of cholecystectomy History of cataract extraction History of heart artery stent Hx of colonoscopy H/O neck surgery History of Problems with Anesthesia: No Social History Social History Household Members: None Housing: Apartment Are you a primary health care manager to a significant other at home: No Unable to assess alcohol history related to: Unable to respond and Unknown Alcohol intake: never Patient Tobacco Use Status: Former Tobacco user Quit Date: 2004 Tobacco use type: Cigarette Years Smoked: 30-40 years Second Hand Smoke Exposure: No Use of substances other than those prescribed or required for medical reasons: No Substance Use Type: Crack/Cocaine Are you DNR?: No Advance Directives: No Advance Directives Information Provided: Yes service: No Current occupational status: disabled Meds Allergies Allergy/AdvReac Type Severity Reaction Status Date / Time atorvastatin [ATORVASTATIN] Allergy Intermediate SWELLING Verified 01/26/23 12:30 morphine [MORPHINE] Allergy Intermediate RASH Verified 01/26/23 12:30 zolpidem [From AMBIEN] AdvReac Intermediate SLEEP WALKS Verified 01/26/23 12:30 Active Medications: Current Medications Albuterol Sulfate (Albuterol Sulfate (0.083%) 2.5 Mg/3 Ml Vial.Neb) 2.5 mg INHALE ONCE PRN PRN Reason: Shortness of Breath/Wheezing Ampicillin Sodium 2 gm/ Sodium (Chloride) 100 mls @ 200 mls/hr IV ONCE ONE Stop: 03/06/23 18:53 Gentamicin Sulfate 120 mg/ (Sodium Chloride) 103 mls @ 100 mls/hr IV ONCE ONE Stop: 03/06/23 19:28 Lactated Ringer's (Lr) 1,000 mls @ 100 mls/hr IVCONT .Q10H MARY CARMEN Last Admin: 03/07/23 11:32 Dose: 100 mls/hr Home Medications Medication Instructions Recorded Confirmed Last Taken Type lancing device with lancets kit #1 ea 03/24/21 10/10/22 Unknown History ([facility] Lancing Device kit) metoprolol tartrate 25 mg tablet 25 mg PO BID 07/15/21 03/03/23 11/03/21 08:15 History albuterol sulfate 90 mcg/actuation 2 puff inhalation QID PRN 11/30/21 03/03/23 Unknown History aerosol inhaler Respiratory Distress duloxetine 30 mg capsule,delayed 30 mg PO DAILY 11/30/21 03/03/23 Unknown History release ferrous sulfate 325 mg (65 mg 325 mg PO DAILY 11/30/21 03/03/23 Unknown History iron) tablet fluoxetine 20 mg capsule 20 mg PO DAILY 11/30/21 03/03/23 Unknown History insulin lispro 100 unit/mL 6 unit subcut TID 06/09/22 03/03/23 Unknown History subcutaneous pen (Humalog KwikPen (U-100) Insulin) gabapentin 600 mg tablet 600 mg PO TID 07/07/22 03/03/23 Unknown History trazodone 50 mg tablet 50 - 100 mg PO BEDTIME PRN insomnia 07/07/22 03/03/23 Unknown History Exam Height,Weight and Vital Signs: Height 5 ft 2 in Weight 111.856 kg Last Vital Signs Temp 98.3 F 03/07/23 11:25 Pulse 71 03/07/23 11:25 Resp 18 03/07/23 11:25 BP 138/78 03/07/23 11:25 Pulse Ox 96 03/07/23 11:25 O2 Del Method Room Air 03/07/23 11:25 Pertinent Lab Results Pertinent Lab Results: Laboratory Tests 03/07/23 11:21 WBC 8.5 RBC 2.92 L Hgb 8.6 L Hct 27.7 L MCV 94.9 MCH 29.5 MCHC 31.0 RDW 15.3 Plt Count 282 MPV 9.8 Absolute Nucleated RBC 0.000 Nucleated RBC % (auto) 0.0 Sodium 146 H Potassium 4.5 Chloride 115 H Carbon Dioxide 20 L Anion Gap 16 BUN 60 H Creatinine 3.45 H Estim Creat Clear Calc 16.6 Estimated GFR 13 POC Glucose 90 Fasting Glucose 91 Calcium 7.9 L Airway Mallampati Class: III TM Dist: >3cm Neck ROM: Limited Loose/Missing/Broken Teeth: Yes and Upper Assessment and Plan Assessment Anesthesia Assessment: Anesthesia Plan Discussed and Chart Reviewed Final Anesthetic Review Family History of Problems with Anesthesia: No History of Problems with Anesthesia: No NPO: Yes ASA Class: III Final Preanesthetic Review: No Changes in Pt Med Stat, Meds/Allgs Chart Reviewed, Consent Obtained/Reviewed and Anes Risks/Benef Reviewed Patient Risk: Intermediate Procedure Risk: Intermediate Anesthetic Plan Anesthetic Plan: GA Disposition: Standard PACU
--- NOTE | 2023-03-07 12:57 | MHC.SHP ---
Pre-Procedural Eval Section A Date of Service: 03/07/23 The patient is an INPATIENT: No The History & Physical has been completed within 30 days and I have reviewed it.: Yes Section B Chief Complaint: Left hydronephrosis Allergies: Allergies Allergy/AdvReac Type Severity Reaction Status Date / Time atorvastatin [ATORVASTATIN] Allergy Intermediate SWELLING Verified 01/26/23 12:30 morphine [MORPHINE] Allergy Intermediate RASH Verified 01/26/23 12:30 zolpidem [From AMBIEN] AdvReac Intermediate SLEEP WALKS Verified 01/26/23 12:30 Plan I have reviewed the history and physical and performed a pertinent physical examination on my patient. No changes have occurred unless specified. Cystoscopy Left retrograde left ureteral stent. Time Spent With Patient Time: Total time managing care of this patient today ____ minutes.
[2023-03-07 13:56] VITALS: PULSE 71; RESP 16; TEMP 36.5; O2SAT 98
--- NOTE | 2023-03-07 13:56 | P.OP_ITS ---
Operative Note Operative Note Date of Service: 03/07/23 Narrative: PreOperative Diagnosis:?? Right renal mass, Left hydronephrosis Post Operative Diagnosis:?? ?Right renal mass, Left hydronephrosis Procedure: - cystoscopy, left retrograde left stent insertion, size 7 by 26 Surgeon:?Dr Willian Quigley Anesthesia:? General Indications for procedure: Shweta is a 77-year-old female has chronic belcher due to voiding dysfunction. She was noted on imaging to have a right renal mass suspicious for neoplasm and left hydronephrosis. Lasix renal scan was done on 01/17/23-- Diminished function, perfusion and execretion of the right kidney. Normal left kidney perfusion, function and delayed excretion. There is no response of either kidney to Lasix from 30 to 60 minutes. The split renal function of left kidney is 86.1 % and right kidney is 13.9%. Procedure: After informed consent was verified the patient was brought to the operating placed on the OR table in supine position.? General Anesthesia was administered per protocol.? The patient was placed in lithotomy position, the belcher was removed, the genitalia was prepped and draped in the usual sterile fashion.? Safety pause time-out and side of surgery confirmed.? Antibiotics confirmed. A 22 Norwegian cystoscope was inserted transurethrally, The bladder was visualized.? Erythematous changes on the posterior wall c/w prior catheter use noted. Both ureteric orifices were in normal position. The? left ureteric orifice was cannulated? and a A hydrophilic guidewire was placed up to the level of the renal pelvis under fluoroscopy. The ureteral catheter was passed into the renal pelvis, there was no brisk urine noted so a specimen was not obtained for urine c/s. A retrograde examination was performed, there was mild prominence of the renal pelvis noted. The guide wire was replaced and the ureteral catheter was removed. A 7 fr by 26 cm ureteral stent was passed over the guide wire under fluoroscopic guidance. The guide wire was removed. ? The rigid cystoscope was removed. ? A 16 fr belcher was placed. The patient tolerated the procedure well and was brought to the recovery room in stable condition. Complications: None Drains: Ureteral stent as dictated above, 16 fr belcher
[2023-03-07 14:01] VITALS: BP 121/47; PULSE 71; RESP 16; O2SAT 98
[2023-03-07 14:06] VITALS: BP 129/62; PULSE 78; RESP 18; O2SAT 98
[2023-03-07 14:11] VITALS: BP 134/69; PULSE 70; RESP 18; O2SAT 99
[2023-03-07 14:55] VITALS: TEMP 36.9
== END 2023-03-07 15:27 | disposition home or self-care (01) ==
PROVIDERS: Nurse Practitioner; PCP Internal Medicine; Visit Provider Urology
PROC: (CPT 52332; principal; 2023-03-07 11:00)
DX: N13.30 Unspecified hydronephrosis (principal); N28.89 Other specified disorders of kidney and ureter; R33.9 Retention of urine, unspecified; E11.22 Type 2 diabetes mellitus with diabetic chronic kidney disease; I12.9 Hypertensive chronic kidney disease with stage 1 through stage 4 chronic kidney disease, or unspecified chronic kidney disease; N18.4 Chronic kidney disease, stage 4 (severe); E78.00 Pure hypercholesterolemia, unspecified; I48.92 Unspecified atrial flutter; I25.2 Old myocardial infarction; R29.6 Repeated falls; Z87.440 Personal history of urinary (tract) infections; Z87.891 Personal history of nicotine dependence; Z79.4 Long term (current) use of insulin; Z79.01 Long term (current) use of anticoagulants
CPT/HCPCS: 52332; 36415; 80048; 82947; 85027; C2617; J0290; J1100; J1580; J2371; J2405; J2704; Q9967

== ENCOUNTER → 2023-03-07 08:29 | Outpatient (BNV) | payer OTHER, SELFPAY | PROVIDERS: PCP Internal Medicine; Visit Provider Urology | DX: N13.30 Unspecified hydronephrosis (principal); N28.89 Other specified disorders of kidney and ureter | CPT/HCPCS: 52332; 74420 ==

== ENCOUNTER 2023-03-11 08:37 | Outpatient (REF) | payer OTHER, SELFPAY ==
--- NOTE | ~2023-03-11 | XR_ITS ---
EXAMINATION: XR CHEST CLINICAL INFORMATION: History of kidney mass likely malignant. COMPARISON: Chest radiograph of 06/16/2019. TECHNIQUE: 2 views of the chest were obtained. FINDINGS: There is no gross pneumothorax. Evaluation of cardiomediastinal silhouette is limited due to low lung volumes. Orthopedic hardware overlies the partially-imaged cervical spine/lower face. No gross pleural effusion. Surgical clips in the upper abdomen. Advanced multilevel degenerative changes in the thoracic spine. Mild bibasilar streaky opacities, left greater than right, associated with low lung volumes may represent atelectasis/scar, although an inflammatory/infectious process should also be considered. XR/XR chest 2V IMPRESSION: Mild bibasilar streaky opacities, left greater than right, associated with low lung volumes may represent atelectasis/scar, although an inflammatory/infectious process should also be considered.
== END 2023-03-11 08:38 | disposition home or self-care (01) ==
LOC: HO.XRAY 08:37
PROVIDERS: PCP Internal Medicine; Visit Provider Urology
DX: N28.89 Other specified disorders of kidney and ureter (principal); R94.2 Abnormal results of pulmonary function studies
CPT/HCPCS: 71046

== ENCOUNTER → 2023-03-16 15:42 | Outpatient (BNVA) | payer OTHER, SELFPAY | PROVIDERS: PCP Internal Medicine; Visit Provider Urology | DX: R33.9 Retention of urine, unspecified (principal); N13.30 Unspecified hydronephrosis; N28.89 Other specified disorders of kidney and ureter; N39.0 Urinary tract infection, site not specified; Z96.0 Presence of urogenital implants | CPT/HCPCS: 99212 ==

== ENCOUNTER 2023-03-16 15:46 | Outpatient (AMB) | payer OTHER, SELFPAY ==
--- NOTE | 2023-03-16 16:08 | A.OFFVIS_ITS ---
Intake Intake Visit Reasons: S/P Cysto retrograde/Ureteroscopy Intake Note: Patient presents today for S/P Cysto Retrograde & Ureteroscopy: Meds- Sulfa & Cipro Allergies to Antibiotic- No Known Allergies Blood Thinner- Eliquis Double End Trimmer Required: No Accompanied by: Daughter Allergies atorvastatin [ATORVASTATIN] Allergy (Intermediate, Verified 03/16/23 16:15) SWELLING morphine [MORPHINE] Allergy (Intermediate, Verified 03/16/23 16:15) RASH zolpidem [From AMBIEN] Adverse Reaction (Intermediate, Verified 03/16/23 16:15) SLEEP WALKS HPI HPI Comments History of Present Illness Details 03/16/23--Shweta is a 77-year-old female w ho presents today to the office for a follow-up post left ureteral stent. Shweta is a 77-year-old female who is followed due to voiding dysfunction currently with Belcher catheter for urinary retention. She was noted on imaging to have a right renal mass suspicious for neoplasm and left hydronephrosis. The patient had a renal scan ordered to evaluate the left kidney to rule out obstruction. The patient was referred to Dr. Quiñones for further management of the renal mass. The patient has VNA support at home for catheter changes every 4 weeks. CoMorbidity - Diabetes Repeat Lasix renal scan was done on 01/17/23-- Noted Diminished function, perfusion and execretion of the right kidney. Normal left kidney perfusion, function and delayed excretion. There is no response of either kidney to Lasix from 30 to 60 minutes. The split renal function of left kidney is 86.1 % and right kidney is 13.9%. Review of charts: --12/12/2022-- I reviewed the renal scan results from 10/27/2022 revealed differential renal function: Left 41%, Right 59%.? Study was incomplete Labs/Results: urine culture results from 10/10/2022 which came back Klebsiella pneumonia? > 100,000 cfu/mL , and Organism 2 Enterococcus faecalis > 100,000 cfu/mL.? MRI results from 09/29/2022 revealed a 5.3 cm heterogeneous T2 heterogeneously enhancing exophytic right upper pole renal mass with loss of signal on opposed phase imaging, suspicious for clear cell renal cell carcinoma.? Moderate left hydronephrosis similar to prior.? 10/10/22-Referral to Dr. Quiñones for right renal mass. 03/16/23-- Plan: Repeat lasix renal scan i n 8 weeks, cont belcher, VNA to change catheter q 4 weeks Pt will cont fu with Dr. Quiñones for right renal mass. [facility] Medical History CKD (chronic kidney disease) stage 4, GFR 15-29 ml/min CAD (coronary artery disease) History of myocardial infarction Type 2 diabetes mellitus with unspecified complications Paroxysmal atrial fibrillation Chronic kidney disease, stage 3 On beta lanette at home On anticoagulant therapy Multiple falls LETHA (acute kidney injury) Atrial flutter Hyperglycemia Arthritis Limited mobility Chronic pain Anxiety and depression Myocardial infarction Asthma Urgency incontinence High cholesterol Diabetes mellitus Lateral malleolar fracture HTN (hypertension) Surgical History History of cystoscopy Hx of cholecystectomy History of cataract extraction History of heart artery stent Hx of colonoscopy H/O neck surgery Family History Father No problems noted. Mother Diabetes High blood pressure Stomach cancer Social History Household Members: None Housing: Apartment Are you a primary care trainer to a significant other at home: No Unable to assess alcohol history related to: Unable to respond and Unknown Alcohol intake: never Patient Tobacco Use Status: Former Tobacco user Quit Date: 2004 Tobacco use type: Cigarette Years Smoked: 30-40 years Second Hand Smoke Exposure: No Substance Use Type: Crack/Cocaine service: No Current occupational status: disabled Review of Systems Const All systems reviewed & are unremarkable except as noted in HPI and below Reports no additional complaints Eyes Reports no additional complaints ENT Reports no additional complaints Card Denies dyspnea Resp Denies cough and Denies dyspnea GI Reports no additional complaints Reports no additional complaints Musc Reports no additional complaints Skin/Breast Denies rash and Denies unusual bruising Neuro Reports no additional complaints Psych Reports no additional complaints Endo Reports no additional complaints Kurtis/Lymph Reports no additional complaints Aller/Immun Reports no additional complaints Assessment & Plan Assessment & Plan (1) Hydronephrosis, left: Code(s): N13.30 - Unspecified hydronephrosis (2) Renal mass: Code(s): N28.89 - Other specified disorders of kidney and ureter (3) Urinary retention with incomplete bladder emptying: Code(s): R33.9 - Retention of urine, unspecified (4) Recurrent UTI: Code(s): N39.0 - Urinary tract infection, site not specified Plan Plan: Repeat lasix renal scan in 8 weeks, cont belcher, VNA to change catheter q 4 weeks Pt will cont fu with Dr. Quiñones for right renal mass Orders: Orders NM renal flow w pharm int 8 Weeks N13.30 - Unspecified hydronephrosis Patient Instructions: The patient had an opportunity to ask questions regarding treatment plan. All questions were answered. Imaging, Laboratory studies and physical exam results were discussed and reviewed in detail. No major barriers to understanding were identified. The patient expressed understanding and agreement with the above treatment plan. The patient is aware they should contact our office by phone for worsening of their current condition or the appearance of new symptoms. Compliance is encouraged with any medications and followup testing that is ordered. It is a privilege to be allowed the opportunity to participate in the urologic care of your patient. If you have any questions or concerns regarding treatment for the above conditions please do not hesitate to contact me. The office telephone contact is [phone]. This note is constructed in part using voice recognition software. While every effort has been made to ensure accuracy tilting saw operator errors may have been included. Yours sincerely, Willian Quigley MD Coding Level of Care Code Est Pt Level 4 (45269) Diagnoses Hydronephrosis, left N13.30 Renal mass N28.89 Urinary retention with incomplete bladder emptying R33.9 Recurrent UTI N39.0
== END 2023-03-16 16:32 | disposition home or self-care (01) ==
PROVIDERS: PCP Internal Medicine; Visit Provider Urology
DX: N13.30 Unspecified hydronephrosis (principal); N28.89 Other specified disorders of kidney and ureter; R33.9 Retention of urine, unspecified; N39.0 Urinary tract infection, site not specified
CPT/HCPCS: 99214

== ENCOUNTER → 2023-03-23 08:02 | Outpatient (BNV) | payer OTHER, SELFPAY | PROVIDERS: PCP Internal Medicine; Visit Provider Internal Medicine Medical Oncology | DX: N28.89 Other specified disorders of kidney and ureter (principal) | CPT/HCPCS: 99204 ==

== ENCOUNTER → 2023-05-11 10:24 | Outpatient (REF) | payer OTHER, SELFPAY ==
--- NOTE | ~2023-05-11 | NM_ITS ---
EXAMINATION: RENAL DYNAMIC IMAGING STUDY WITH LASIX CLINICAL INFORMATION: Right renal mass status post stent left January 2023. Hydronephrosis. COMPARISON: Prior studies dated 01/17/2023 and 10/27/2022 are available for comparison. CT scan of the abdomen and pelvis dated 06/09/2022 is also available for comparison. MRI of the abdomen dated 09/29/2022 is also available for comparison. TECHNIQUE: Serial gamma scintillation camera images were obtained over the posterior trunk during the initial transit and subsequent distribution of a bolus intravenous injection of 10 mCi of Tc-99m a DTPA. At 30 minutes later, 40 mg of Lasix was administered intravenously and an additional 30 minutes of images obtained. A Solis catheter was in place throughout the study and this was clamped throughout the entire dynamic series, but was unclamped and a post void image was obtained. FINDINGS: Initial rapid sequence images show moderately to markedly diminished perfusion to both kidneys. Subsequent sequential static images obtained up to 30 minutes show moderately diminished concentration in the left kidney and markedly diminished concentration in the right kidney. The visualized functioning renal mass on the right is significantly smaller than on the left. As the study progresses some urinary bladder activity is visualized but the urinary bladder is not entirely in the [id number] and cannot be fully evaluated. At 30 minutes postinjection the right kidney is not well visualized and there is good washout from the parenchyma of the left kidney which is only faintly visualized at this time. There is no abnormal retention in the collecting system of either kidney at any time during the study. Following Lasix administration, there is continued washout from both kidneys and increasing activity in the urinary bladder, although again, as noted above, the urinary bladder is not entirely in the [id number] other than in the post void image. Because of the absence of significant excretory activity visualized in both kidneys, meaningful T-1/2 washout times following Lasix administration cannot be calculated. The relative function of the two kidneys based on the 2-3 minute images are: Left 80% and right 20%. Compared to the prior study dated 01/17/2023 there has not been a significant change in the appearance of either kidney. NM/NM renal flow w pharm int IMPRESSION: LEFT KIDNEY: Moderately impaired perfusion and moderately to markedly impaired function. No hydronephrosis or outflow obstruction is present. RIGHT KIDNEY: Markedly impaired perfusion and function. This kidney is not well visualized throughout the study, and the large mass in the upper pole of the right kidney visualized on the 2022 study is not apparent on this radionuclide scan. No definite hydronephrosis or outflow obstruction is present.
== END ==
LOC: HO.NUCMED 10:24
PROVIDERS: PCP Internal Medicine; Visit Provider Urology
DX: N13.30 Unspecified hydronephrosis (principal)
CPT/HCPCS: 78708; A9539; J1940

== ENCOUNTER 2023-05-19 10:20 | Outpatient (REF) | payer OTHER, SELFPAY | END 2023-05-19 10:21 | disposition home or self-care (01) | LOC: HO.MAMMO 10:20 | PROVIDERS: PCP Internal Medicine; Visit Provider Internal Medicine | DX: Z12.31 Encounter for screening mammogram for malignant neoplasm of breast (principal) | CPT/HCPCS: 77063; 77067 ==

== ENCOUNTER → 2023-05-19 11:15 | Outpatient (BNV) | payer OTHER, SELFPAY | PROVIDERS: PCP Internal Medicine; Visit Provider Radiology Diagnostic Radiology | DX: Z12.31 Encounter for screening mammogram for malignant neoplasm of breast (principal) | CPT/HCPCS: 77063; 77067 ==

== ENCOUNTER 2023-05-25 11:54 | Outpatient (AMB) | payer OTHER, SELFPAY ==
--- NOTE | 2023-05-25 11:57 | A.OFFVIS_ITS ---
Intake Visit Reasons: 10w/lasix scan Intake Note: Patient presents today via telephone: Meds- Sulfa & Cipro Allergies to Antibiotic- No Known Allergies Blood Thinner- Eliquis Breeder Service Technician Required: No Accompanied by: Daughter Allergies atorvastatin [ATORVASTATIN] Allergy (Intermediate, Verified 05/25/23 11:58) SWELLING morphine [MORPHINE] Allergy (Intermediate, Verified 05/25/23 11:58) RASH zolpidem [From AMBIEN] Adverse Reaction (Intermediate, Verified 05/25/23 11:58) SLEEP WALKS HPI Comments Details: 05/25/23-- Shweta is here for fu, s/p repeat lasix renal scan. reviewed results: Lasix renal scan 05/11/23--Following Lasix administration, there is continued washout from both kidneys. Pt states she is doing okay. She has follow up with Dr. Quiñones regarding right renal mass. Plan cysto left ureteral stent exchange. 03/16/23--Shweta is a 77-year-old female who presents today to the office for a follow-up post left ureteral stent. Shweta is a 77-year-old female who is followed due to voiding dysfunction currently with Belcher catheter for urinary retention. She was noted on imaging to have a right renal mass suspicious for neoplasm and left hydronephrosis. The patient had a renal scan ordered to evaluate the left kidney to rule out obstruction. The patient was referred to Dr. Quiñones for further management of the renal mass. The patient has VNA support at home for catheter changes every 4 weeks. CoMorbidity - Diabetes Repeat Lasix renal scan was done on 01/17/23-- Noted Diminished function, perfusion and execretion of the right kidney. Normal left kidney perfusion, function and delayed excretion. There is no response of either kidney to Lasix from 30 to 60 minutes. The split renal function of left kidney is 86.1 % and right kidney is 13.9%. Plan--Repeat lasix renal scan in 8 weeks, cont belcher, VNA to change catheter q 4 weeks. Pt will cont fu with Dr. Quiñones for right renal mass. 12/12/2022--I reviewed the renal scan results from 10/27/2022 revealed differential renal function: Left 41%, Right 59%.? Study was incomplete Labs/Results: urine culture results from 10/10/2022 which came back Klebsiella pneumonia? > 100,000 cfu/mL , and Organism 2 Enterococcus faecalis > 100,000 cfu/mL.? MRI results from 09/29/2022 revealed a 5.3 cm heterogeneous T2 heterogeneously enhancing exophytic right upper pole renal mass with loss of signal on opposed phase imaging, suspicious for clear cell renal cell carcinoma.? Moderate left hydronephrosis similar to prior.? 10/10/22-Referral to Dr. Quiñones for right renal mass. 05/25/23--Plan cysto left ureteral stent exchange. [facility] Medical History CKD (chronic kidney disease) stage 4, GFR 15-29 ml/min CAD (coronary artery disease) History of myocardial infarction Type 2 diabetes mellitus with unspecified complications Paroxysmal atrial fibrillation Chronic kidney disease, stage 3 On beta lanette at home On anticoagulant therapy Multiple falls LETHA (acute kidney injury) Atrial flutter Hyperglycemia Arthritis Limited mobility Chronic pain Anxiety and depression Myocardial infarction Asthma Urgency incontinence High cholesterol Diabetes mellitus Lateral malleolar fracture HTN (hypertension) Surgical History History of cystoscopy Hx of cholecystectomy History of cataract extraction History of heart artery stent Hx of colonoscopy H/O neck surgery Family History Father No problems noted. Mother Diabetes High blood pressure Stomach cancer Social History Household Members: None Housing: Apartment Are you a primary wound care nurse to a significant other at home: No Unable to assess alcohol history related to: Unable to respond and Unknown Alcohol intake: never Patient Tobacco Use Status: Former Tobacco user Quit Date: 2005 Tobacco use type: Cigarette Years Smoked: 30-40 Second Hand Smoke Exposure: No Substance Use Type: Crack/Cocaine Advance Directives Information Provided: No Advance Directives on File: No service: No Current occupational status: disabled Review of Systems Const All systems reviewed & are unremarkable except as noted in HPI and below Reports no additional complaints Eyes Reports no additional complaints ENT Reports no additional complaints Card Reports no additional complaints Resp Reports no additional complaints GI Reports no additional complaints Reports as per HPI Musc Reports no additional complaints Skin/Breast Reports system reviewed and no additional complaints, except as documented Neuro Reports no additional complaints Psych Reports no additional complaints Endo Reports no additional complaints Kurtis/Lymph Reports no additional complaints Aller/Immun Reports no additional complaints Results Reviewed Results Reviewed: Date of Service: 05/11/23 EXAMINATION: RENAL DYNAMIC IMAGING STUDY WITH LASIX CLINICAL INFORMATION: Right renal mass status post stent left January 2023. Hydronephrosis. COMPARISON: Prior studies dated 01/17/2023 and 10/27/2022 are available for comparison. CT scan of the abdomen and pelvis dated 06/09/2022 is also available for comparison. MRI of the abdomen dated 09/29/2022 is also available for comparison. TECHNIQUE: Serial gamma scintillation camera images were obtained over the posterior trunk during the initial transit and subsequent distribution of a bolus intravenous injection of 10 mCi of Tc-99m a DTPA. At 30 minutes later, 40 mg of Lasix was administered intravenously and an additional 30 minutes of images obtained. A Belcher catheter was in place throughout the study and this was clamped throughout the entire dynamic series, but was unclamped and a post void image was obtained. FINDINGS: Initial rapid sequence images show moderately to markedly diminished perfusion to both kidneys. Subsequent sequential static images obtained up to 30 minutes show moderately diminished concentration in the left kidney and markedly diminished concentration in the right kidney. The visualized functioning renal mass on the right is significantly smaller than on the left. As the study progresses some urinary bladder activity is visualized but the urinary bladder is not entirely in the [id number] and cannot be fully evaluated. At 30 minutes postinjection the right kidney is not well visualized and there is good washout from the parenchyma of the left kidney which is only faintly visualized at this time. There is no abnormal retention in the collecting system of either kidney at any time during the study. Following Lasix administration, there is continued washout from both kidneys and increasing activity in the urinary bladder, although again, as noted above, the urinary bladder is not entirely in the [id number] other than in the post void image. Because of the absence of significant excretory activity visualized in both kidneys, meaningful T-1/2 washout times following Lasix administration cannot be calculated. The relative function of the two kidneys based on the 2-3 minute images are: Left 80% and right 20%. Compared to the prior study dated 01/17/2023 there has not been a significant change in the appearance of either kidney. NM/NM renal flow w pharm int IMPRESSION: LEFT KIDNEY: Moderately impaired perfusion and moderately to markedly impaired function. No hydronephrosis or outflow obstruction is present. RIGHT KIDNEY: Markedly impaired perfusion and function. This kidney is not well visualized throughout the study, and the large mass in the upper pole of the right kidney visualized on the 2022 study is not apparent on this radionuclide scan. No definite hydronephrosis or outflow obstruction is present. Assessment & Plan Assessment & Plan (1) Hydronephrosis, left: Code(s): N13.30 - Unspecified hydronephrosis Category: Medical (2) Renal mass: Code(s): N28.89 - Other specified disorders of kidney and ureter Category: Medical (3) Urinary retention with incomplete bladder emptying: Code(s): R33.9 - Retention of urine, unspecified Category: Medical (4) Recurrent UTI: Code(s): N39.0 - Urinary tract infection, site not specified Category: Medical Plan Plan cysto left ureteral stent exchange. Cont VNA catheter changes q 3-4 weeks Patient Instructions: The patient had an opportunity to ask questions regarding treatment plan. The patient expressed understanding and agreement with the above treatment plan. The patient is aware they should contact our office by phone for worsening of their current condition or the appearance of new symptoms. Compliance is encouraged with any medications and followup testing that is ordered. It is a privilege to be allowed the opportunity to participate in the urologic care of your patient. If you have any questions or concerns regarding treatment for the above conditions please do not hesitate to contact me. The office telephone contact is [phone]. This note is constructed in part using voice recognition software. While every effort has been made to ensure accuracy billposting supervisor errors may have been included. Yours sincerely, Willian Quigley MD Coding Level of Care Code Est Pt Level 4 (81616) Diagnoses Hydronephrosis, left N13.30 Renal mass N28.89 Urinary retention with incomplete bladder emptying R33.9 Recurrent UTI N39.0
== END 2023-05-25 12:35 | disposition home or self-care (01) ==
LOC: HO.HUSH 11:54
PROVIDERS: PCP Internal Medicine; Visit Provider Urology
DX: N13.30 Unspecified hydronephrosis (principal); N28.89 Other specified disorders of kidney and ureter; R33.9 Retention of urine, unspecified; N39.0 Urinary tract infection, site not specified
CPT/HCPCS: 99214

== ENCOUNTER → 2023-05-25 11:54 | Outpatient (BNVA) | payer OTHER, SELFPAY | PROVIDERS: PCP Internal Medicine; Visit Provider Urology | DX: N13.30 Unspecified hydronephrosis (principal); N28.89 Other specified disorders of kidney and ureter; N39.0 Urinary tract infection, site not specified; R33.9 Retention of urine, unspecified | CPT/HCPCS: 99212 ==

== ENCOUNTER 2023-05-30 16:45 | Outpatient (REF) | payer OTHER, SELFPAY ==
[2023-05-30 17:59] LABS: Glucose Urine UA Negative (Negative); Leukocyte Esterase Urine Large (3+) (Negative); Nitrite Urine Negative (Negative); PH 7.5 (5.0-9.0); Specific Gravity - Urine 1.015 (1.005-1.025); UMIC TRIGGER UA YES; Urine Blood Large (3+) (Negative); Urine Ketones Negative (Negative); Urine Protein 300 (3+) mg/dL (Neg-Trace)
[2023-05-30 18:00] LABS: Appearance Urine Cloudy; Color Urine Yellow
[2023-05-30 18:02] LABS: Bacteria Urine 3+ (None Seen); Hyaline Casts Urine 0-2 /LPF (0-2); RBC Urine >20 /HPF (0-2); WBC Urine >50 /HPF (0-5)
== END 2023-05-30 16:46 | disposition home or self-care (01) ==
LOC: HO.HVNA 16:45
PROVIDERS: Visit Provider Urology
DX: N31.9 Neuromuscular dysfunction of bladder, unspecified (principal); R82.90 Unspecified abnormal findings in urine
CPT/HCPCS: 81001; 81003; 87086; 87088; 87186

== ENCOUNTER → 2023-06-13 07:24 | Outpatient (BNV) | payer OTHER, SELFPAY | PROVIDERS: PCP Internal Medicine; Visit Provider Urology | DX: N28.89 Other specified disorders of kidney and ureter (principal); N13.30 Unspecified hydronephrosis; D64.9 Anemia, unspecified; N18.9 Chronic kidney disease, unspecified | CPT/HCPCS: 99222 ==

== ENCOUNTER → 2023-06-13 07:24 | Day surgery (SDC) | payer OTHER, SELFPAY ==
--- NOTE | 2023-06-12 10:21 | P.CONAN_ITS ---
Documented by User: Jenny Wang NP 06/12/23 10:25 HPI - Anesthesia Eval Consult details Narrative: 77yo F for Left Cystoscopy Ureteral with stent exchange Right renal ca s/p cysto, etc 02/2023 with GA-LMA 4 - cardiac cleared prior Eliquis for afib PMFSH Active Problems Active Problems: All Active Problems Renal cancer (Acute) Right renal mass (Acute) Recurrent UTI (Acute) Hydronephrosis, left (Acute) Pyuria (Acute) Renal mass (Acute) Urinary incontinence without sensory awareness (Acute) Hydroureteronephrosis (Acute) Urinary retention with incomplete bladder emptying (Acute) Chronic UTI (urinary tract infection) (Acute) Frequency of micturition (Acute) HTN (hypertension) (Acute) Diabetes mellitus (Acute) High cholesterol (Acute) Urgency incontinence (Acute) Past Medical History Medical History CKD (chronic kidney disease) stage 4, GFR 15-29 ml/min CAD (coronary artery disease) History of myocardial infarction Type 2 diabetes mellitus with unspecified complications Paroxysmal atrial fibrillation Chronic kidney disease, stage 3 On beta lanette at home On anticoagulant therapy Multiple falls LETHA (acute kidney injury) Atrial flutter Hyperglycemia Arthritis Limited mobility Chronic pain Anxiety and depression Myocardial infarction Asthma Urgency incontinence High cholesterol Diabetes mellitus Lateral malleolar fracture HTN (hypertension) Family History Family History Father No problems noted. Mother Diabetes High blood pressure Stomach cancer Family history of problems with anesthesia: No Surgical History Surgical History History of cystoscopy Hx of cholecystectomy History of cataract extraction History of heart artery stent Hx of colonoscopy H/O neck surgery History of Problems with Anesthesia: No Social History Social History Household Members: None Housing: Apartment Are you a primary rn managed care to a significant other at home: No Unable to assess alcohol history related to: Unable to respond and Unknown Alcohol intake: never Patient Tobacco Use Status: Former Tobacco user Quit Date: 2005 Tobacco use type: Cigarette Years Smoked: 30-40 Second Hand Smoke Exposure: No Substance Use Type: Crack/Cocaine service: No Current occupational status: disabled Meds Allergies Allergy/AdvReac Type Severity Reaction Status Date / Time atorvastatin [ATORVASTATIN] Allergy Intermediate SWELLING Verified 06/13/23 09:54 morphine [MORPHINE] Allergy Intermediate RASH Verified 06/13/23 09:54 zolpidem [From AMBIEN] AdvReac Intermediate SLEEP WALKS Verified 06/13/23 09:54 Home Medications ?Medication ?Instructions ?Recorded ?Confirmed ?Last Taken ?Type lancing device with lancets kit #1 ea 03/24/21 03/23/23 Unknown History ([employer] Lancing Device kit) metoprolol tartrate 25 mg tablet 25 mg PO BID 07/15/21 06/09/23 11/03/21 08:15 History albuterol sulfate 90 mcg/actuation 2 puff inhalation QID PRN 11/30/21 06/09/23 Unknown History aerosol inhaler Respiratory Distress duloxetine 30 mg capsule,delayed 30 mg PO DAILY 11/30/21 06/09/23 Unknown History release ferrous sulfate 325 mg (65 mg 325 mg PO DAILY 11/30/21 06/09/23 Unknown History iron) tablet fluoxetine 20 mg capsule 20 mg PO DAILY 11/30/21 06/09/23 Unknown History insulin lispro 100 unit/mL 6 unit subcut TID 06/09/22 06/09/23 Unknown History subcutaneous pen (Humalog KwikPen (U-100) Insulin) Exam Height,Weight and Vital Signs: Height 5 ft 2 in Narrative Narrative: ECHO 06/2022 Conclusions: - 1. Normal LV systolic function with LVEF of 60 65% 2. Normal cardiac valvular Dopplers 3. Mildly elevated at worker systolic pressure 4. No gross pericardial effusion EKG 05/2022 Vent. Rate : 067 BPM Atrial Rate : 067 BPM P-R Int : 176 ms QRS Dur : 078 ms QT Int : 410 ms P-R-T Axes : 085 044 027 degrees QTc Int : 433 ms Normal sinus rhythm Normal ECG When compared with ECG of 09-JUN-2022 15:19, No significant change was found Assessment and Plan Assessment Anesthesia Assessment: Chart Reviewed Final Anesthetic Review Family History of Problems with Anesthesia: No History of Problems with Anesthesia: No Documented by User: Ronni Nguyen MD 06/13/23 09:55 HPI - Anesthesia Eval Consult details Narrative: 77yo F for Left Cystoscopy Ureteral with stent exchange Right renal ca s/p cysto, etc 02/2023 with GA-LMA 4 - cardiac cleared prior Eliquis for afib THIS PROCEDURE WAS CANCELLED AND THE PATIENT WAS TRANSFERRED TO THE ED BEC OF LOW HEMOGLOBIN AND HIGH POTASSIUM. See my Anesthesia consult note. [facility] Past Medical History Medical History CKD (chronic kidney disease) stage 4, GFR 15-29 ml/min CAD (coronary artery disease) History of myocardial infarction Type 2 diabetes mellitus with unspecified complications Paroxysmal atrial fibrillation Chronic kidney disease, stage 3 On beta lanette at home On anticoagulant therapy Multiple falls LETHA (acute kidney injury) Atrial flutter Hyperglycemia Arthritis Limited mobility Chronic pain Anxiety and depression Myocardial infarction Asthma Urgency incontinence High cholesterol Diabetes mellitus Lateral malleolar fracture HTN (hypertension) Family History Family History Father No problems noted. Mother Diabetes High blood pressure Stomach cancer Surgical History Surgical History History of cystoscopy Hx of cholecystectomy History of cataract extraction History of heart artery stent Hx of colonoscopy H/O neck surgery Social History Social History Household Members: None Housing: Apartment Are you a primary rn managed care to a significant other at home: No Unable to assess alcohol history related to: Unable to respond and Unknown Alcohol intake: never Patient Tobacco Use Status: Former Tobacco user Quit Date: 2005 Tobacco use type: Cigarette Years Smoked: 30-40 Second Hand Smoke Exposure: No Substance Use Type: Crack/Cocaine service: No Current occupational status: disabled Meds Allergies Allergy/AdvReac Type Severity Reaction Status Date / Time atorvastatin [ATORVASTATIN] Allergy Intermediate SWELLING Verified 06/13/23 09:54 morphine [MORPHINE] Allergy Intermediate RASH Verified 06/13/23 09:54 zolpidem [From AMBIEN] AdvReac Intermediate SLEEP WALKS Verified 06/13/23 09:54 Home Medications ?Medication ?Instructions ?Recorded ?Confirmed ?Last Taken ?Type lancing device with lancets kit #1 ea 03/24/21 03/23/23 Unknown History ([employer] Lancing Device kit) metoprolol tartrate 25 mg tablet 25 mg PO BID 07/15/21 06/09/23 11/03/21 08:15 History albuterol sulfate 90 mcg/actuation 2 puff inhalation QID PRN 11/30/21 06/09/23 Unknown History aerosol inhaler Respiratory Distress duloxetine 30 mg capsule,delayed 30 mg PO DAILY 11/30/21 06/09/23 Unknown History release ferrous sulfate 325 mg (65 mg 325 mg PO DAILY 11/30/21 06/09/23 Unknown History iron) tablet fluoxetine 20 mg capsule 20 mg PO DAILY 11/30/21 06/09/23 Unknown History insulin lispro 100 unit/mL 6 unit subcut TID 06/09/22 06/09/23 Unknown History subcutaneous pen (Humalog KwikPen (U-100) Insulin)
[2023-06-13 08:31] VITALS: BMI 39.0
[2023-06-13 08:44] LABS: MANUAL DIFF FLAG NO
[2023-06-13 08:47] LABS: Glucose, Whole Blood 124 mg/dL (60-115)
[2023-06-13 08:48] VITALS: BP 111/65; PULSE 92; RESP 16; TEMP 37.1; O2SAT 96
[2023-06-13 08:50] LABS: Basophils Percent Auto 0.5 % (0-2); Eosinophils Absolute Auto 0.2 X10*3/uL (0.0-0.4); Eosinophils Percent Auto 2.3 % (0-4); Hematocrit 21.3 % (37.0-47.0); Imm Gran Abs Auto 0.03 X10*3/uL (0.00-0.03); Imm Gran Pct Auto 0.4 % (0.0-0.4); Lymphocytes Percent Auto 24.7 % (20-40); Mean Corpuscular Hemoglobin 30.6 pg (27.0-33.0); Mean Corpuscular Volume 98.6 fL (80.0-98.0); Mean Platelet Volume 10.5 fL (9.4-12.3); Monocytes Absolute Auto 0.7 X10*3/uL (0.1-1.2); Monocytes Percent Auto 8.6 % (2-11); Neutrophils Absolute Auto 5.2 x10*3/uL (2.0-8.3); Neutrophils Percent Auto 63.5 % (45-73); Platelet Count 278 X10*3/uL (160-400); Red Blood Count 2.16 X10*6/uL (4.20-5.50); Red Cell Distribution Width 12.8 % (11.0-16.0); White Blood Count 8.1 X10*3/uL (4.8-10.8)
[2023-06-13 08:56] LABS: Hemoglobin 6.6 g/dl (12.0-16.0)
[2023-06-13] MEDS: Lactated Ringers 1,000 ML 100 ML IVCONT (09:01)
[2023-06-13 09:09] LABS: Anion Gap 14 (12-20); Blood Urea Nitrogen 53 mg/dL (9-16); Calcium 7.9 mg/dL (8.4-10.2); Carbon Dioxide 19 mmol/L (22-29); Chloride 114 mmol/L (96-108); Creatinine Clr Calc Pharmacy 18.9; Estimated Glomerular Filt Rate 16; Glucose Fasting 112 mg/dL (60-99); Potassium 5.3 mmol/L (3.3-5.1); Sodium 142 mmol/L (135-145)
--- NOTE | 2023-06-13 09:23 | PC.NURSE ---
MD DODGE GIVING REPORT TO MD VILLALOBOS IN THE ER REGARDING HER LAB VALUES. PATIENT CANCELLED FOR PROCEDURE. MD CHEEMA CALLED DAUGHTER AND AWARE OF HER PLAN OF CARE.
--- NOTE | 2023-06-13 09:27 | PC.NURSE ---
CALLED FOR A STAT EKG.
--- NOTE | 2023-06-13 09:28 | PC.NURSE ---
RECALLED CARDIOLOGY. PATIENTS EKG TO BE PERFORMED IN THE ED PER MD DODGE.
--- NOTE | 2023-06-13 09:31 | P.CONAN1_ITS ---
History of Present Illness Consult details Consult date: 06/13/23 Requesting physician: Willian Quigley Narrative: Mrs. Woodard presented to the OR today for elective left sided stent change by Dr. Quigley. The patient is a 77 yo F with known right renal mass (suspected renal cell ca) and left-sided hydronephrosis of unclear etiology, possibly UPJ obstruction. (There is no left-sided mass.) The patient has had worsening LETHA since Feb of this year. The patient underwent lab testing on arrival to [facility] today bec of known LETHA with marked azotemia. Labs came back showing Hgb 6.6 (previously 8.5 in Mar), and potassium 5.3 w BUN/creat 53/2.8 (previously 4.8 w BUN/creat 69/3.8). On questioning, she told me that her stool has been dark, dark, dark for a couple of months. After discussion, Dr. Drake has decided to defer the procedure and refer the patient to the ED. I called the ED and discussed the patient with Dr. Prasad. The patient will be transferred to the ED for further evaluation. [facility] Past Medical History Medical History CKD (chronic kidney disease) stage 4, GFR 15-29 ml/min CAD (coronary artery disease) History of myocardial infarction Type 2 diabetes mellitus with unspecified complications Paroxysmal atrial fibrillation Chronic kidney disease, stage 3 On beta lanette at home On anticoagulant therapy Multiple falls LETHA (acute kidney injury) Atrial flutter Hyperglycemia Arthritis Limited mobility Chronic pain Anxiety and depression Myocardial infarction Asthma Urgency incontinence High cholesterol Diabetes mellitus Lateral malleolar fracture HTN (hypertension) Family History Family History Father No problems noted. Mother Diabetes High blood pressure Stomach cancer Surgical History Surgical History History of cystoscopy Hx of cholecystectomy History of cataract extraction History of heart artery stent Hx of colonoscopy H/O neck surgery Social History Social History Household Members: None Housing: Apartment Are you a primary care process manager to a significant other at home: No Unable to assess alcohol history related to: Unable to respond and Unknown Alcohol intake: never Patient Tobacco Use Status: Former Tobacco user Quit Date: 2005 Tobacco use type: Cigarette Years Smoked: 30-40 Second Hand Smoke Exposure: No Substance Use Type: Crack/Cocaine Advance Directives: No Advance Directives Information Provided: Yes Advance Directives on File: No service: No Current occupational status: disabled Meds Allergies Allergy/AdvReac Type Severity Reaction Status Date / Time atorvastatin [ATORVASTATIN] Allergy Intermediate SWELLING Verified 05/25/23 11:58 morphine [MORPHINE] Allergy Intermediate RASH Verified 05/25/23 11:58 zolpidem [From AMBIEN] AdvReac Intermediate SLEEP WALKS Verified 05/25/23 11:58 Active Medications: Current Medications Albuterol Sulfate (Albuterol Sulfate (0.083%) 2.5 Mg/3 Ml Vial.Neb) 2.5 mg INHALE ONCE PRN PRN Reason: Shortness of Breath/Wheezing Lactated Ringer's (Lr) 1,000 mls @ 100 mls/hr IVCONT .Q10H MARY CARMEN Last Admin: 06/13/23 09:01 Dose: 100 mls/hr Home Medications ?Medication ?Instructions ?Recorded ?Confirmed ?Last Taken ?Type lancing device with lancets kit #1 ea 03/24/21 03/23/23 Unknown History ([facility]) metoprolol tartrate 25 mg tablet 25 mg PO BID 07/15/21 06/09/23 11/03/21 08:15 History albuterol sulfate 90 mcg/actuation 2 puff inhalation QID PRN 11/30/21 06/09/23 Unknown History aerosol inhaler Respiratory Distress duloxetine 30 mg capsule,delayed 30 mg PO DAILY 11/30/21 06/09/23 Unknown History release ferrous sulfate 325 mg (65 mg 325 mg PO DAILY 11/30/21 06/09/23 Unknown History iron) tablet fluoxetine 20 mg capsule 20 mg PO DAILY 11/30/21 06/09/23 Unknown History insulin lispro 100 unit/mL 6 unit subcut TID 06/09/22 06/09/23 Unknown History subcutaneous pen (Humalog KwikPen (U-100) Insulin) Physical Exam 2 Vital Signs: Vital Signs: Last Vital Signs Temp 98.7 F 06/13/23 08:48 Pulse 92 06/13/23 08:48 Resp 16 06/13/23 08:48 BP 111/65 06/13/23 08:48 Pulse Ox 96 06/13/23 08:48 O2 Del Method Room Air 06/13/23 08:48 BMI result Body Mass Index 39.0 Results Labs 06/13/23 08:32 06/13/23 08:32 Labs: Abnormal lab results 06/13/23 06/13/23 Range/Units 08:32 08:44 RBC 2.16 L D (4.20-5.50) X10*6/uL Hgb 6.6 L* D (12.0-16.0) g/dl Hct 21.3 L D (37.0-47.0) % MCV 98.6 H (80.0-98.0) fL Potassium 5.3 H (3.3-5.1) mmol/L Chloride 114 H (96-108) mmol/L Carbon Dioxide 19 L (22-29) mmol/L BUN 53 H (9-16) mg/dL Creatinine 2.89 H (0.5-1.4) mg/dL POC Glucose 124 H (60-115) mg/dL Fasting Glucose 112 H (60-99) mg/dL Calcium 7.9 L D (8.4-10.2) mg/dL Short CBC 06/13/23 Range/Units 08:32 WBC 8.1 (4.8-10.8) X10*3/uL Hgb 6.6 L* D (12.0-16.0) g/dl Hct 21.3 L D (37.0-47.0) % Plt Count 278 (160-400) X10*3/uL BMP 06/13/23 08:32 Sodium 142 Potassium 5.3 H Chloride 114 H Carbon Dioxide 19 L BUN 53 H Creatinine 2.89 H Calcium 7.9 L D All other labs normal. Procedures Date of Service Date of Service: 06/13/23
--- NOTE | 2023-06-13 09:33 | P.PNUR_ITS ---
Subjective Subjective Date of Service: 06/13/23 Interval history: Shweta is a 77-year-old female with chronic left hydronephrosis and right renal mass. She presented for elective left ureteral stent change. Preop labs were done which noted a low hemoglobin, and elevated potassium. The patient will be sent to the emergency room for further evaluation and the procedure will be postponed. The patient's daughter Batool was informed by me via telephone. Physical Exam 2 Vital Signs: Vital Signs: Last Vital Signs Temp 98.7 F 06/13/23 08:48 Pulse 92 06/13/23 08:48 Resp 16 06/13/23 08:48 BP 111/65 06/13/23 08:48 Pulse Ox 96 06/13/23 08:48 O2 Del Method Room Air 06/13/23 08:48 BMI result Body Mass Index 39.0 Urology Results Labs 06/13/23 08:32 06/13/23 08:32 Labs: Laboratory Results - last 24 hr 06/13/23 06/13/23 08:32 08:44 WBC 8.1 RBC 2.16 L D Hgb 6.6 L* D Hct 21.3 L D MCV 98.6 H MCH 30.6 MCHC 31.0 RDW 12.8 Plt Count 278 MPV 10.5 Immature Gran % (Auto) 0.4 Neut % (Auto) 63.5 Lymph % (Auto) 24.7 [place] % (Auto) 8.6 Eos % (Auto) 2.3 Baso % (Auto) 0.5 Lymph # (Auto) 2.0 [place] # (Auto) 0.7 Eos # (Auto) 0.2 Baso # (Auto) 0.0 Abs Immat Gran (auto) 0.03 Absolute Neuts (auto) 5.2 Absolute Nucleated RBC 0.000 Nucleated RBC % (auto) 0.0 Sodium 142 Potassium 5.3 H Chloride 114 H Carbon Dioxide 19 L Anion Gap 14 BUN 53 H Creatinine 2.89 H Estim Creat Clear Calc 18.9 Estimated GFR 16 POC Glucose 124 H Fasting Glucose 112 H Calcium 7.9 L D Progress Note: A&P Assessment and plan (1) Right renal mass: Status: Acute (2) Hydronephrosis, left: Status: Acute (3) Anemia: Status: Acute (4) Chronic kidney disease: Status: Acute Plan The patient will be sent to the emergency room for further evaluation. Time Spent With Patient Time: Total time managing care of this patient today ____ minutes.
--- NOTE | 2023-06-13 09:33 | PC.NURSE ---
CALLED AND SPOKE TO KALANI VELA CHARGE IN ED AND TRANSFERRING PATIENT TO BED 18.
--- NOTE | 2023-06-13 09:37 | PC.NURSE ---
OFF UNIT TO ER ON MONITOR
== END ==
PROVIDERS: Nurse Practitioner; PCP Internal Medicine; Visit Provider Urology
DX: N13.30 Unspecified hydronephrosis (principal); Z53.8 Procedure and treatment not carried out for other reasons; R79.9 Abnormal finding of blood chemistry, unspecified
CPT/HCPCS: 36415; 80048; 82947; 85025; J1580; J2704; J3010; Q9967

== ENCOUNTER 2023-06-13 09:47 | Inpatient (IN) | payer OTHER, SELFPAY ==
[2023-06-13] VITALS (13 sets, daily range): BP systolic 96–157; BP diastolic 50–82; PULSE 57–87; RESP 16–20; TEMP 36.4–36.8; O2SAT 98–100; BMI 42.1
--- NOTE | 2023-06-13 11:22 | ED.RECABL ---
HPI - Recheck/Abnormal Lab/Rx General Chief Complaint: Recheck/Abnormal Lab/Rx Stated Complaint: abnormal labs Time Seen by Provider: 06/13/23 10:02 Source: patient, family (Daughter) and interpreter translator Mode of arrival: ambulatory Limitations: no limitations History of Present Illness HPI narrative: This is a 77-year-old female here for short-stay surgery for replacement of renal stent and anesthesia noted that the patient had a low H&H with acute drop from her baseline patient reported dark stool for the past 2 months, patient otherwise no dizziness, no CP, no SOB, no headache. Related Data Home Medications ?Medication ?Instructions ?Recorded ?Confirmed lancing device with lancets kit #1 ea 03/24/21 03/23/23 ([employer] Lancing Device kit) metoprolol tartrate 25 mg tablet 25 mg PO BID 07/15/21 06/09/23 albuterol sulfate 90 mcg/actuation 2 puff inhalation QID PRN 11/30/21 06/09/23 aerosol inhaler Respiratory Distress duloxetine 30 mg capsule,delayed 30 mg PO DAILY 11/30/21 06/09/23 release ferrous sulfate 325 mg (65 mg 325 mg PO DAILY 11/30/21 06/09/23 iron) tablet fluoxetine 20 mg capsule 20 mg PO DAILY 11/30/21 06/09/23 insulin lispro 100 unit/mL 6 unit subcut TID 06/09/22 06/09/23 subcutaneous pen (Humalog KwikPen (U-100) Insulin) Previous Rx's ?Medication ?Instructions ?Recorded apixaban 5 mg tablet (Eliquis) 5 mg PO BID #60 tabs 01/26/21 blood sugar diagnostic (FreeStyle #100 ea 01/26/21 Lite Strips) lancets 28 gauge (FreeStyle #100 ea 01/26/21 Lancets) pen needle, diabetic 32 gauge x #50 ea 01/26/21 (Pen Needle) amlodipine 5 mg tablet 5 mg PO DAILY #30 tabs 01/15/22 fosfomycin tromethamine 3 gram 3 g PO Q3D 12 days #4 ea 06/01/23 oral packet Allergies Allergy/AdvReac Type Severity Reaction Status Date / Time atorvastatin [ATORVASTATIN] Allergy Intermediate SWELLING Verified 06/13/23 09:54 morphine [MORPHINE] Allergy Intermediate RASH Verified 06/13/23 09:54 zolpidem [From AMBIEN] AdvReac Intermediate SLEEP WALKS Verified 06/13/23 09:54 Review of Systems Review of Systems: All other systems are reviewed and are negative Constitutional: Reports as per HPI and Reports no additional constitutional complaints Eyes: Reports as per HPI and Reports no additional eye complaints Reports system reviewed and no additional complaints, except as documented Cardiovascular: Reports as per HPI and Reports no additional cardiovascular complaints Respiratory: Reports as per HPI and Reports no additional respiratory complaints Gastrointestinal: Reports as per HPI and Reports no additional gastrointestinal complaints Genitourinary: Reports no additional female genitourinary complaints Musculoskeletal: Reports no additional musculoskeletal complaints Skin/Breast: Reports system reviewed and no additional complaints, except as docu Psychiatric: Reports no additional psychiatric complaints Endocrine: Reports no additional endocrine complaints Hematologic/Lymphatic: Reports no additional hematologic/lymphatic complaints Allergic/Immunologic: Reports no additional allergic/immunologic complaints Reports system reviewed and no additional complaints, except as documented and Reports Abnormal speech present [facility] Past Medical History Medical History CKD (chronic kidney disease) stage 4, GFR 15-29 ml/min CAD (coronary artery disease) History of myocardial infarction Type 2 diabetes mellitus with unspecified complications Paroxysmal atrial fibrillation Chronic kidney disease, stage 3 On beta lanette at home On anticoagulant therapy Multiple falls LETHA (acute kidney injury) Atrial flutter Hyperglycemia Arthritis Limited mobility Chronic pain Anxiety and depression Myocardial infarction Asthma Urgency incontinence High cholesterol Diabetes mellitus Lateral malleolar fracture HTN (hypertension) Surgical History History of cystoscopy Hx of cholecystectomy History of cataract extraction History of heart artery stent Hx of colonoscopy H/O neck surgery Family History Family History Father No problems noted. Mother Diabetes High blood pressure Stomach cancer Social History Social History Household Members: None Housing: Apartment Are you a primary medicare contact specialist to a significant other at home: No Unable to assess alcohol history related to: Unable to respond and Unknown Alcohol intake: never Patient Tobacco Use Status: Former Tobacco user Quit Date: 2005 Tobacco use type: Cigarette Years Smoked: 30-40 Second Hand Smoke Exposure: No Substance Use Type: Crack/Cocaine Advance Directives: Yes Advance Directives Information Provided: Yes Advance Directives on File: No service: No Current occupational status: disabled Physical Exam Vital Signs: Vital Signs: Last Vital Signs Temp 98.0 F 06/13/23 10:09 Pulse 69 06/13/23 10:09 Resp 18 06/13/23 10:09 BP 139/64 06/13/23 10:09 Pulse Ox 100 06/13/23 10:09 O2 Del Method Room Air 06/13/23 10:09 BMI result Body Mass Index 42.1 Vital signs have been reviewed and appear to be correct. Blood pressure elevated. Heart rate normal. Respiratory rate normal. Temperature normal. Oxygen saturation normal. Appearance: Alert. Oriented X3. No acute distress. Head: Normal external exam. Normocephalic. Atraumatic. No Roman signs noted. No raccoon eyes noted Eyes: PERRLA. EOMI. Conjunctiva and sclera normal. Eyelids normal. ENT: TM's Normal. Pharynx normal. Uvula midline. Moist mucous membranes. No trismus noted. No drooling noted. No muffled voice noted. Neck: Normal inspection. Neck supple. FROM. No adenopathy. Thyroid Normal. No meningeal signs. No neck mass noted. CVS: Normal heart rate and rhythm. Heart sound normal. No murmurs noted. Pulses normal throughout. Respiratory: No respiratory distress. Painless inspiration. Breath sounds normal. No wheezes/rales/rhonchi noted. Chest nontender. No accessory muscle usage noted or decreased air movement noted. Abdomen: Soft and nontender. Bowel sounds normal in all 4 quadrants. No distention noted. No organomegaly noted. No visible injury noted. Rectal exam: Brown stool with trace blood positive, no hemorrhoids. Back: No CVA tenderness. Full range of motion noted. Skin: Skin warm and dry. Normal skin color. Normal skin turgor. No rashes/lesions/lacerations noted. Extremities: No lower extremity edema. Extremities exhibit normal range of motion. Extremities nontender. Neuro: Oriented X 3. Cranial nerve exam: II-XII are grossly intact No motor deficit. No sensory deficit. Reflexes normal. Course Reevaluation(s) Reevaluation #1: 77-year-old female with 2 months of dark stool found to be guaiac-positive patient had 2 units of H&H dropped from her baseline. Patient otherwise hemodynamically stable, asymptomatic, slight hyperkalemia without EKG changes, patient received Lokelma 10 mg in the ED. Will admit for further evaluation. Time: 12:16 Medications Administered Discontinued Medications Generic Name Dose Route Start Last Admin Trade Name Freq PRN Reason Stop Dose Admin Sodium Zirconium Cyclosilicate 10 gm 06/13/23 11:22 06/13/23 11:41 Sodium Zirconium Cyclosilicate 10 Gm Powd.Pack PO 06/13/23 11:23 10 gm ONCE ONE Administration Medical Decision Making Differential Diagnosis Differential Diagnoses: The differential diagnosis associated with the presentation includes (Active GI bleed, LETHA, thrombocytopenia, coagulopathy, severe anemia, electrolyte derangement.) Admission/Observation Consideration of admission/observation: Escalation of care including admission/observation considered Lab Data MDM Lab Attestation statement: I reviewed the patient's lab results. 06/13/23 11:53 06/13/23 11:53 Labs: Lab Results 06/13/23 06/13/23 Range/Units 11:13 11:53 WBC 8.1 (4.8-10.8) X10*3/uL RBC 2.19 L (4.20-5.50) X10*6/uL Hgb 6.6 L* (12.0-16.0) g/dl Hct 21.6 L (37.0-47.0) % MCV 98.6 H (80.0-98.0) fL MCH 30.1 (27.0-33.0) pg MCHC 30.6 L (31.0-35.0) g/dl RDW 12.8 (11.0-16.0) % Plt Count 259 (160-400) X10*3/uL MPV 10.0 (9.4-12.3) fL Immature Gran % (Auto) 0.2 (0.0-0.4) % Neut % (Auto) 62.3 (45-73) % Lymph % (Auto) 25.7 (20-40) % Hughes % (Auto) 8.7 (2-11) % Eos % (Auto) 2.6 (0-4) % Baso % (Auto) 0.5 (0-2) % Lymph # (Auto) 2.1 (1.2-4.9) X10*3/uL Hughes # (Auto) 0.7 (0.1-1.2) X10*3/uL Eos # (Auto) 0.2 (0.0-0.4) X10*3/uL Baso # (Auto) 0.0 (0.0-0.2) X10*3/uL Abs Immat Gran (auto) 0.02 (0.00-0.03) X10*3/uL Absolute Neuts (auto) 5.0 (2.0-8.3) x10*3/uL Absolute Nucleated RBC 0.000 (0.0-0.012) X10*3/uL Nucleated RBC % (auto) 0.0 (0.0-0.2) /100WBC Stool Occult Blood POSITIVE (NEGATIVE) Independent Interpretation I performed an independent interpretation of an: EKG Discharge Plan Discharge Clinical Impression: Anemia, GI bleed Patient Disposition: Admitted As Inpatient Prescriptions: No Action fosfomycin tromethamine 3 gram packet 3 g PO Q3D 12 Days Qty: 4 0RF Rx Instructions: One dose (one packet) every 3 days metoprolol tartrate 25 mg tablet 25 mg PO BID Protocol: Hold for SBP/HR < HOLD for SBP < : 90 HOLD for HR < : 60 Eliquis 5 mg Tablet 5 mg PO BID Qty: 60 0RF (DME) lancets [FreeStyle Lancets] 28 gauge misc See Rx Instructions .ROUTE .MEDSUPPLY Qty: 100 0RF Rx Instructions: As directed (DME) FreeStyle Lite Strips Strip See Rx Instructions .Route Qty: 100 0RF Rx Instructions: As directed (DME) pen needle, diabetic [Pen Needle] 32 gauge x 5/32 needle See Rx Instructions .Route Qty: 50 0RF Rx Instructions: As directed duloxetine 30 mg capsule,delayed release(DR/EC) 30 mg PO DAILY amlodipine 5 mg Tablet 5 mg PO DAILY Qty: 30 0RF Protocol: Hold for SBP< HOLD for SBP < : 90 insulin lispro [Humalog KwikPen Insulin] 100 unit/mL insulin pen 6 unit subcut TID (DME) lancing device with lancets [[employer] Lanc Device] Kit See Rx Instructions .ROUTE .MEDSUPPLY Qty: 1 Rx Instructions: As directed fluoxetine 20 mg capsule 20 mg PO DAILY albuterol sulfate 90 mcg/actuation HFA aerosol inhaler 2 puff inhalation QID PRN (Reason: Respiratory Distress) ferrous sulfate 325 mg (65 mg iron) tablet 325 mg PO DAILY Print Language: Greek
[2023-06-13 11:24] LABS: OBS Int Ctl Valid YES; OBS1 POSITIVE (NEGATIVE)
--- NOTE | 2023-06-13 11:40 | ECG_ITS ---
Test Reason : HYPERKALEMIA Blood Pressure : / mmHG Vent. Rate : 092 BPM Atrial Rate : 000 BPM P-R Int : 000 ms QRS Dur : 064 ms QT Int : 370 ms P-R-T Axes : 000 038 -75 degrees QTc Int : 457 ms Atrial fibrillation Low voltage QRS Nonspecific ST and T wave abnormality Abnormal ECG When compared with ECG of 11-JUN-2022 09:59, Atrial fibrillation has replaced Sinus rhythm Nonspecific T wave abnormality, worse in Anterolateral leads Referred By: Rachelle Prasad Electronically Signed By:SHORTY BUSTILLOS
[2023-06-13] MEDS: Sodium Zirconium Cyclosilicate 10 GM POWD.PACK PO (11:41)
[2023-06-13 11:59] LABS: MANUAL DIFF FLAG NO
[2023-06-13 12:01] LABS: Basophils Percent Auto 0.5 % (0-2); Eosinophils Absolute Auto 0.2 X10*3/uL (0.0-0.4); Eosinophils Percent Auto 2.6 % (0-4); Hematocrit 21.6 % (37.0-47.0); Imm Gran Abs Auto 0.02 X10*3/uL (0.00-0.03); Imm Gran Pct Auto 0.2 % (0.0-0.4); Lymphocytes Absolute Auto 2.1 X10*3/uL (1.2-4.9); Lymphocytes Percent Auto 25.7 % (20-40); Mean Corpuscular HGB Conc 30.6 g/dl (31.0-35.0); Mean Corpuscular Hemoglobin 30.1 pg (27.0-33.0); Mean Corpuscular Volume 98.6 fL (80.0-98.0); Monocytes Absolute Auto 0.7 X10*3/uL (0.1-1.2); Monocytes Percent Auto 8.7 % (2-11); Neutrophils Percent Auto 62.3 % (45-73); Platelet Count 259 X10*3/uL (160-400); Red Blood Count 2.19 X10*6/uL (4.20-5.50); Red Cell Distribution Width 12.8 % (11.0-16.0); White Blood Count 8.1 X10*3/uL (4.8-10.8)
[2023-06-13 12:03] LABS: Hemoglobin 6.6 g/dl (12.0-16.0)
[2023-06-13 12:14] LABS: Anion Gap 14 (12-20); Blood Urea Nitrogen 50 mg/dL (9-16); Calcium 8.1 mg/dL (8.4-10.2); Carbon Dioxide 19 mmol/L (22-29); Chloride 115 mmol/L (96-108); Creatinine Clr Calc Pharmacy 21.3; Estimated Glomerular Filt Rate 17; Glucose Random 107 mg/dL (60-115); Potassium 5.2 mmol/L (3.3-5.1); Sodium 143 mmol/L (135-145)
--- NOTE | 2023-06-13 13:13 | PHA.MEDREC ---
Pharmacy Consult ? Medication Reconciliation Pharmacy has completed the medication reconciliation.Spoke with family member in ED.
--- NOTE | 2023-06-13 14:48 | PM.IMHP ---
History of Present Illness Date of Service: 06/13/23 Chief Complaint: Anemia 77-year-old woman presented to the ER with anemia. Patient was scheduled for a ureteral stent today, labs had been drawn and noted that the H&H had dropped significantly. She was brought to the ER for further management. She reports that over the last 2 months she has had dark stools and more recently she has had some mild shortness of breath and more lethargy. She reported that she was also taking iron so she was not sure if it was true bleeding or a result of taking the iron supplementation. She denied any chest pain, dizziness, nausea, vomiting, diarrhea, headaches, visual changes, loss of consciousness. In the ER, hemoglobin noted to be 6.6/21.3, potassium 5.3, creatinine 2.89, stable vital signs. 2 units of packed red blood cells was ordered, she was given a dose of Lokelma and 2 L of IV fluids. She will be admitted for further management and treatment of acute blood loss anemia. Review of Systems Review of Systems: Denies any recent fever chills or decrease in appetite respiratory denies any shortness of breath or cough cardiovascular denies chest pain gastrointestinal denies any dysphagia abdominal pain nausea vomiting or diarrhea, reports dark stools for 2 months genitourinary denies any dysuria frequency or hematuria musculoskeletal denies any joint pain or swelling neuropsych denies any weakness or seizures all other systems reviewed are negative [facility] Medical History (Updated 06/13/23 @ 16:24 by Hailey Norris NP) CKD (chronic kidney disease) stage 4, GFR 15-29 ml/min CAD (coronary artery disease) History of myocardial infarction Type 2 diabetes mellitus with unspecified complications Paroxysmal atrial fibrillation Multiple falls Arthritis Limited mobility Chronic pain Anxiety and depression Asthma Urgency incontinence High cholesterol Lateral malleolar fracture HTN (hypertension) Family History Father No problems noted. Mother Diabetes High blood pressure Stomach cancer Surgical History History of cystoscopy Hx of cholecystectomy History of cataract extraction History of heart artery stent Hx of colonoscopy H/O neck surgery Social History Household Members: None Housing: Apartment Are you a primary career development facilitator to a significant other at home: No Unable to assess alcohol history related to: Unable to respond and Unknown Alcohol intake: never Patient Tobacco Use Status: Former Tobacco user Quit Date: 2005 Tobacco use type: Cigarette Years Smoked: 30-40 Second Hand Smoke Exposure: No Substance Use Type: Crack/Cocaine Advance Directives: Yes Advance Directives Information Provided: Yes Advance Directives on File: No service: No Current occupational status: disabled Meds Allergies Allergy/AdvReac Type Severity Reaction Status Date / Time atorvastatin [ATORVASTATIN] Allergy Intermediate SWELLING Verified 06/13/23 09:54 morphine [MORPHINE] Allergy Intermediate RASH Verified 06/13/23 09:54 zolpidem [From AMBIEN] AdvReac Intermediate SLEEP WALKS Verified 06/13/23 09:54 Home Medications ?Medication ?Instructions ?Recorded ?Confirmed ?Last Taken ?Type lancing device with lancets kit #1 ea 03/24/21 03/23/23 Unknown History ([employer] Lancing Device kit) albuterol sulfate 90 mcg/actuation 2 puff inhalation QID PRN 11/30/21 06/13/23 Unknown History aerosol inhaler Respiratory Distress ferrous sulfate 325 mg (65 mg 325 mg PO DAILY 11/30/21 06/13/23 Unknown History iron) tablet insulin lispro 100 unit/mL See Protocol subcut TIDAC 06/09/22 06/13/23 Unknown History subcutaneous pen (Humalog KwikPen (U-100) Insulin) acetaminophen 650 mg 650 mg PO TID 06/13/23 06/13/23 Unknown History tablet,extended release amlodipine 5 mg tablet 5 mg PO DAILY 06/13/23 06/13/23 Unknown History diclofenac sodium 1 % topical gel 4 g topical QID PRN Pain (Scale 06/13/23 06/13/23 Unknown History Score 1-3) duloxetine 60 mg capsule,delayed 60 mg PO DAILY 06/13/23 06/13/23 Unknown History release ezetimibe 10 mg tablet 10 mg PO DAILY 06/13/23 06/13/23 Unknown History fluticasone furoate 100 1 inh inhalation DAILY 06/13/23 06/13/23 Unknown History mcg/actuation blister powder for inhalation (Arnuity Ellipta) insulin glargine 100 unit/mL (3 6 unit subcut BEDTIME 06/13/23 06/13/23 Unknown History mL) subcutaneous pen (Lantus Solostar U-100 Insulin) lisinopril 20 1 tab PO DAILY 06/13/23 06/13/23 Unknown History mg-hydrochlorothiazide 25 mg tablet metoprolol tartrate 25 mg tablet 25 mg PO BID 06/13/23 06/13/23 Unknown History montelukast 10 mg tablet 10 mg PO BEDTIME 06/13/23 06/13/23 Unknown History quetiapine 150 mg tablet 150 mg PO BEDTIME 06/13/23 06/13/23 Unknown History rosuvastatin 20 mg tablet 20 mg PO BEDTIME 06/13/23 06/13/23 Unknown History torsemide 10 mg tablet 20 mg PO DAILY 06/13/23 06/13/23 Unknown History Physical Exam Vital Signs and Narrative: Vital Signs: Last Vital Signs Temp 98.0 F 06/13/23 10:09 Pulse 85 06/13/23 14:05 Resp 20 06/13/23 14:05 BP 120/62 06/13/23 14:05 Pulse Ox 98 06/13/23 14:05 O2 Del Method Room Air 06/13/23 14:05 BMI result Body Mass Index 42.1 Appearing in no acute distress head is normocephalic atraumatic eyes pupils are PERRLA sclera is anicteric mouth throat mucous membranes are intact and moist neck is supple no lymphadenopathy, no JVD noted lung sounds are clear to auscultation heart regular rate rhythm, clear S1, S2 positive bowel sounds, abdomen is soft, nontender neuro patient is alert x3, no focal deficits Results Labs 06/13/23 11:53 06/13/23 11:53 Labs: Laboratory Results - last 24 hr 06/13/23 06/13/23 11:13 11:53 MCV 98.6 H MCH 30.1 MCHC 30.6 L RDW 12.8 Plt Count 259 MPV 10.0 Immature Gran % (Auto) 0.2 Neut % (Auto) 62.3 Lymph % (Auto) 25.7 [place] % (Auto) 8.7 Eos % (Auto) 2.6 Baso % (Auto) 0.5 Lymph # (Auto) 2.1 [place] # (Auto) 0.7 Eos # (Auto) 0.2 Baso # (Auto) 0.0 Abs Immat Gran (auto) 0.02 Absolute Neuts (auto) 5.0 Absolute Nucleated RBC 0.000 Nucleated RBC % (auto) 0.0 Anion Gap 14 Estim Creat Clear Calc 21.3 Estimated GFR 17 Random Glucose 107 Calcium 8.1 L Stool Occult Blood POSITIVE Blood Type O Positive Antibody Screen NEGATIVE Assessment and Plan (1) GI bleed: Status: Acute (2) Anemia: Status: Acute Plan 77 year old women admitted with anemia and GI bleed Acute blood loss anemia Hx of anemia and dark stools for 2 months HH 6.6/21.6 stool occult positive tx 2 units prbc GI consult for possible EGD/colo check HH post tx Hyperkalemia s/p Lokelma follow BMP CKD 4 at baseline avoid nephrotoxins Asthma no exacerbation albuterol as needed Afib hold eliquis continue bb Hypertension stable BP Continue amlodipine monitor closely to avoid hypotension in light of anemia Diabetes mellitus 2 ss, Lantus, ada diet Mental health continue home medications Morbid obesity. BMI 42.1 Discussed importance of weight management as this may be contributing to worsening of other comorbidities DVT prophylaxis with SCD boots in light of anemia/GI bleed Full code Patient requires at least 48 hours inpatient admission due to acute blood loss anemia requiring blood transfusion and close monitoring of blood levels. Due to patient's age she is at risk for decompensation without close monitoring in an acute care setting. Quality Stroke Does the patient have a stroke diagnosis?: No VTE Prior VTE?: No VTE Risk Level:: Medical - moderate - high VTE Device Contraindication: N/A - Device Ordered VTE Drug Contraindication: Treatment Not Indicated
--- NOTE | 2023-06-13 16:15 | PC.NURSE ---
Addendum entered by Rohini Yang RN 06/13/23 16:18: transferred to hospital bed, family at bedside. Original Note: Assumed care of patient at this time. Patient brought over to overflow 1 via stretcher.
--- NOTE | 2023-06-13 17:40 | PC.NURSE ---
Blood transfusion not started yet due to no transfusion consent signed in chart. Guicho texted previous MIRIAN Mariee at [phone] to find out if it is in ED and left behind. Jaylene urban texted that she did not know blood transfusion was ordered. Provider to notify to sign consent.
--- NOTE | 2023-06-13 18:13 | MHC.CM.ED ---
IMM 06/12. Met with admitted patient in Over Flow unit with bed assignment pending. Pt declines a Crib Tender. Requested IMM in Urdu. Original given to patient and copy to medical records. A&Ox4. Address, phone, PCP and HCP verified. HCP on file. Pt lives alone. Has 2 DIRECTOR OF PERSONNEL's from [facility] Fanny 18 hours/wk in daytime and Honey 28 hours/wk at night. She uses an wheelchair and electric wheelchair for mobility. Pt is not independent with transfers. Pt feels she usually has what she needs. THRIVE assessment negative. Pt has been active in the past with [facility] and feels she may need visiting nurse services at discharge. Request to follow in [facility]. Pt states her daughter can provide transport home at discharge. CM will follow for discharge planning.
--- NOTE | 2023-06-13 18:56 | PC.NURSE ---
Consent signed by Dr. Muñiz with this RN present. Blood verified by two RNs. Pt denies sob/chest pain. Blood transfusion started as per ordered. Report given to oncoming nurse.
--- NOTE | 2023-06-13 19:45 | PC.NURSE ---
pt tolerating blood transfusion #1
[2023-06-13] MEDS: Albuterol/Iprat 2.5/0.5MG 3 ML AMPUL.NEB INHALE (19:49)
[2023-06-13 20:21] LABS: Iron 23 mcg/dL (30-160); Percent Iron Saturation 11 % (15-50); Total Iron Binding Capacity 208 mcg/dL (228-428); Unsaturated Iron Binding 185 ug/dL
[2023-06-13] MEDS: diphenhydrAMINE HCL 25 MG CAPSULE 12.5 MG PO (20:28)
[2023-06-13] MEDS: Acetaminophen 325 MG TABLET 650 MG PO (20:28)
--- NOTE | 2023-06-13 20:33 | PC.NURSE ---
Pt medicated per MAR
[2023-06-13 20:42] LABS: Ferritin 48 ng/mL (10-250)
[2023-06-13 21:28] LABS: Glucose, Whole Blood 155 mg/dL (60-115)
[2023-06-13] MEDS: Montelukast Sodium 10 MG TABLET PO (21:35)
[2023-06-13] MEDS: Metoprolol Tartrate 25 MG TABLET PO (21:36)
[2023-06-13] MEDS: QUEtiapine Fumarate 100 MG TABLET 150 MG PO (21:36)
[2023-06-13] MEDS: Insulin Lispro 100 UNIT/ML 3 ML VIAL SUBCUT (21:36)
[2023-06-13] MEDS: 0.9 % Sodium Chloride Flush 3 ML SYRINGE IVFLUSH (21:37)
[2023-06-14] VITALS (12 sets, daily range): BP systolic 93–155; BP diastolic 52–98; PULSE 54–97; RESP 16–20; TEMP 35.9–36.8; O2SAT 97–99
[2023-06-14 06:49] LABS: MANUAL DIFF FLAG NO
[2023-06-14 06:55] LABS: Basophils Percent Auto 0.4 % (0-2); Eosinophils Absolute Auto 0.3 X10*3/uL (0.0-0.4); Eosinophils Percent Auto 3.2 % (0-4); Hematocrit 27.6 % (37.0-47.0); Hemoglobin 8.8 g/dl (12.0-16.0); Imm Gran Abs Auto 0.02 X10*3/uL (0.00-0.03); Imm Gran Pct Auto 0.2 % (0.0-0.4); Lymphocytes Absolute Auto 1.8 X10*3/uL (1.2-4.9); Lymphocytes Percent Auto 20.6 % (20-40); Mean Corpuscular HGB Conc 31.9 g/dl (31.0-35.0); Mean Corpuscular Volume 94.2 fL (80.0-98.0); Mean Platelet Volume 10.8 fL (9.4-12.3); Monocytes Absolute Auto 0.8 X10*3/uL (0.1-1.2); Monocytes Percent Auto 9.9 % (2-11); Neutrophils Absolute Auto 5.6 x10*3/uL (2.0-8.3); Neutrophils Percent Auto 65.7 % (45-73); Platelet Count 242 X10*3/uL (160-400); Red Blood Count 2.93 X10*6/uL (4.20-5.50); Red Cell Distribution Width 16.5 % (11.0-16.0); White Blood Count 8.5 X10*3/uL (4.8-10.8)
[2023-06-14 07:13] LABS: Anion Gap 15 (12-20); Blood Urea Nitrogen 52 mg/dL (9-16); Calcium 8.8 mg/dL (8.4-10.2); Carbon Dioxide 18 mmol/L (22-29); Chloride 115 mmol/L (96-108); Creatinine Clr Calc Pharmacy 18.7; Estimated Glomerular Filt Rate 15; Glucose Random 99 mg/dL (60-115); Potassium 5.7 mmol/L (3.3-5.1); Sodium 142 mmol/L (135-145)
[2023-06-14 07:19] LABS: Magnesium 2.6 mg/dL (1.6-2.6)
[2023-06-14 07:35] LABS: Glucose, Whole Blood 93 mg/dL (60-115)
--- NOTE | 2023-06-14 07:46 | HO.PM.IMPN ---
Subjective Subjective Date of Service: 06/14/23 Interval History: Seen in follow up for acute blood loss anemia with melena INterval history: No abd pain, n/v. No recurrent melena/hematochezia. Pt reports no complaints. Has been following with [facility] oncology was supposed to start palliative radiation tomorrow. H/H improved following transfusion yesterday Review of Systems Review of Systems: Yes all other systems are reviewed and are negative Physical Exam Vital Signs: Vital Signs: Last Vital Signs Temp 97.4 F 06/14/23 03:32 Pulse 56 06/14/23 03:32 Resp 18 06/14/23 03:32 BP 101/59 L 06/14/23 03:32 Pulse Ox 99 06/14/23 03:32 O2 Del Method Room Air 06/13/23 21:10 BMI result Body Mass Index 42.1 Constitutional - Awake and Alert, No apparent distress Eyes - PERRLA, EOMI Cardiovascular - S1S2, RRR, No edema Respiratory - Normal lung expansion, Normal respiratory effort, No respiratory distress, CTA bilaterally Gastrointestinal - NT / ND; +BS; No rebound or guarding Extremities - no calf tenderness bilaterally, no swelling Skin - Warm/Dry Neurological - Alert & oriented x3 Psychological - Appropriate affect Objective Data Active Medications Acetaminophen (Acetaminophen 325 Mg Tablet) 650 mg PO Q6H PRN PRN Reason: Pain, Mild (Pain Scale 1-3) Albuterol Sulfate (Albuterol Sulfate 90 Mcg 8 Gm Inhaler) 2 puff INHALE QID PRN PRN Reason: Respiratory Distress Albuterol/Ipratropium (Albuterol/Iprat 2.5/0.5mg 3 Ml Ampul.Neb) 3 ml INHALE RQ4H WHILE AWAKE [facility] Last Admin: 06/13/23 19:49 Dose: 3 ml Documented By: JOSEPH Amlodipine Besylate (Amlodipine Besylate 5 Mg Tablet) 5 mg PO DAILY [facility]; Protocol Duloxetine HCl (Duloxetine Hcl 60 Mg Capsule.) 60 mg PO DAILY [facility] Ezetimibe (Ezetimibe 10 Mg Tablet) 10 mg PO DAILY [facility] Fluticasone Propionate (Fluticasone Propionate 100 Mcg Blst.W.Dev) 1 puff INHALE RBID [facility] Glucose (Glucose Gel 15 Gm Gel..Gram.) 15 gm PO Q15M PRN; Protocol PRN Reason: per Hypoglycemia Standing Ord. Hydrochlorothiazide (Hydrochlorothiazide 25 Mg Tablet) 25 mg PO DAILY [facility] Dextrose (D10) 250 mls @ 750 mls/hr IV Q15M PRN; Protocol PRN Reason: per Hypoglycemia Standing Ord. Insulin Human Lispro (Insulin Lispro 100 Unit/Ml 3 Ml Vial) 0 unit SUBCUT QIDACHS [facility]; Protocol Last Admin: 06/14/23 07:42 Dose: Not Given Documented By: JORDAN Non-Admin Reason: No Insulin Coverage Lisinopril (Lisinopril 20 Mg Tablet) 20 mg PO DAILY [facility] Metoprolol Tartrate (Metoprolol Tartrate 25 Mg Tablet) 25 mg PO BID [facility]; Protocol Last Admin: 06/13/23 21:36 Dose: 25 mg Documented By: CHARLES Montelukast Sodium (Montelukast Sodium 10 Mg Tablet) 10 mg PO BEDTIME [facility] Last Admin: 06/13/23 21:35 Dose: 10 mg Documented By: CHARLES Non-Formulary Medication (Rosuvastatin) 20 mg PO BEDTIME [facility] Ondansetron HCl (Ondansetron Hcl 4 Mg/2 Ml Vial) 4 mg IVPUSH Q8H PRN PRN Reason: Nausea and Vomiting Quetiapine Fumarate (Quetiapine Fumarate 100 Mg Tablet) 150 mg PO BEDTIME [facility] Last Admin: 06/13/23 21:36 Dose: 150 mg Documented By: CHARLES Sodium Chloride (0.9 % Sodium Chloride Flush 3 Ml Syringe) 3 ml IVFLUSH QSHIFT [facility] Last Admin: 06/13/23 21:37 Dose: 3 ml Documented By: CHARLES Torsemide (Torsemide 20 Mg Tablet) 20 mg PO DAILY [facility]; Protocol Labs 06/14/23 05:46 06/14/23 05:46 Labs: Laboratory Results - last 24 hr 06/13/23 06/13/23 06/13/23 11:13 11:53 21:18 MCV 98.6 H MCH 30.1 MCHC 30.6 L RDW 12.8 Plt Count 259 MPV 10.0 Immature Gran % (Auto) 0.2 Neut % (Auto) 62.3 Lymph % (Auto) 25.7 Cochran % (Auto) 8.7 Eos % (Auto) 2.6 Baso % (Auto) 0.5 Lymph # (Auto) 2.1 Cochran # (Auto) 0.7 Eos # (Auto) 0.2 Baso # (Auto) 0.0 Abs Immat Gran (auto) 0.02 Absolute Neuts (auto) 5.0 Absolute Nucleated RBC 0.000 Nucleated RBC % (auto) 0.0 Anion Gap 14 Estim Creat Clear Calc 21.3 Estimated GFR 17 POC Glucose 155 H Random Glucose 107 Calcium 8.1 L Magnesium Iron 23 L TIBC 208 L % Saturation 11 L Unsat Iron Binding 185 Ferritin 48 Stool Occult Blood POSITIVE Blood Type O Positive Antibody Screen NEGATIVE Crossmatch See Detail 06/14/23 06/14/23 05:46 07:21 MCV 94.2 MCH 30.0 MCHC 31.9 RDW 16.5 H Plt Count 242 MPV 10.8 Immature Gran % (Auto) 0.2 Neut % (Auto) 65.7 Lymph % (Auto) 20.6 Cochran % (Auto) 9.9 Eos % (Auto) 3.2 Baso % (Auto) 0.4 Lymph # (Auto) 1.8 Cochran # (Auto) 0.8 Eos # (Auto) 0.3 Baso # (Auto) 0.0 Abs Immat Gran (auto) 0.02 Absolute Neuts (auto) 5.6 Absolute Nucleated RBC 0.000 Nucleated RBC % (auto) 0.0 Anion Gap 15 Estim Creat Clear Calc 18.7 Estimated GFR 15 POC Glucose 93 Random Glucose 99 Calcium 8.8 D Magnesium 2.6 Iron TIBC % Saturation Unsat Iron Binding Ferritin Stool Occult Blood Blood Type Antibody Screen Crossmatch Assessment and Plan (1) GI bleed: Status: Acute (2) Anemia: Status: Acute Plan 77 year old women admitted with anemia and GI bleed Acute blood loss anemia r/t GI bleed Hx of anemia and dark stools for 2 months HH 6.6/21.6 on admission. Transfused 2 units 4/30 H/H improved to 8.8/27.6% stool occult positive Per GI, plan for EGD 06/14. NPO after midnight follow H/H Hyperkalemia 5.2-->5.7 06/13. Give addl dose lokelma hold lisinopril follow BMP, if no improvement in setting of CKD consider nephrology consult Renal cancer oncology consult was supposed to start palliative radiation tomorrow, follows with [facility] oncology CKD 4 at baseline Asthma no exacerbation albuterol as needed Afib hold eliquis continue bb Hypertension stable BP Continue amlodipine monitor closely to avoid hypotension in light of anemia Diabetes mellitus 2 ss, miryam Coulter diet Mental health continue home medications Morbid obesity. BMI 42.1 Discussed importance of weight management as this may be contributing to worsening of other comorbidities DVT prophylaxis with SCD boots in light of anemia/GI bleed Full code d/w dr faye pt requires ongoing inpt stay due to acute blood loss anemia with suspected gi bleed requiring blood transfusion close monitoring of renal function/lytes, EGD and expert consulation Quality Stroke Does the patient have a stroke diagnosis?: No VTE Prior VTE?: No VTE Risk Level:: Medical - moderate - high VTE Device Contraindication: N/A - Device Ordered VTE Drug Contraindication: Treatment Not Indicated
[2023-06-14] MEDS: Fluticasone Propionate 100 MCG BLST.W.DEV 1 PUFF INHALE (07:49)
[2023-06-14] MEDS: Albuterol/Iprat 2.5/0.5MG 3 ML AMPUL.NEB INHALE ×4 (07:49→19:50)
--- NOTE | 2023-06-14 08:13 | PM.HEMONCCN ---
Subjective - Subjective Chief complaint: Hematochezia Patient: known to practice within the last 3 years Consult date: 06/14/23 Primary Care Provider: Janet Phelan MD Medical Summary: Diagnosis: Right kidney cancer HPI - Consult Narrative Reason for consult: Anemia secondary to GI bleed, history of kidney cancer Narrative: Shweta Woodard is a 77 year old female with history of right kidney cancer that was diagnosed in 2022 in her presented yesterday with severe anemia. Patient states that in the last 2 months she has had dark colored stools and she thought it was because she was taking iron supplementation. She was noted to have a hemoglobin of 6.6 gram/dL, 2 units PRBC were transfused. She has had gradually worsening anemia since 2021. Her hemoglobin in March 2023 was 8.5 gram/dL. She also has chronic kidney disease. She has chronic left hydronephrosis and a large right renal mass suspicious for renal cell carcinoma. She was being followed by Dr. Quiñones at [facility] for her kidney cancer. She was recently referred to urology at [place] for possible surgery. She has been evaluated by Gastroenterology, EGD is being planned. Review of Systems - Constitutional Reports as per [facility] Medical History: Medical History (Last Reviewed 06/15/23 @ 13:17 by Camila Rodriguez MD) Anxiety and depression Arthritis Asthma CAD (coronary artery disease) Chronic pain CKD (chronic kidney disease) stage 4, GFR 15-29 ml/min High cholesterol History of myocardial infarction HTN (hypertension) Lateral malleolar fracture Limited mobility Multiple falls Paroxysmal atrial fibrillation Type 2 diabetes mellitus with unspecified complications Urgency incontinence Family History: Family History (Last Reviewed 06/15/23 @ 13:18 by Camila Rodriguez MD) Father No problems noted. Mother Diabetes High blood pressure Stomach cancer Surgical History: Surgical History (Last Reviewed 06/15/23 @ 13:18 by Camila Rodriguez MD) H/O neck surgery History of cataract extraction History of cystoscopy History of heart artery stent Hx of cholecystectomy Hx of colonoscopy Social History: Social History (Last Reviewed 06/15/23 @ 13:18 by Camila Rodriguez MD) Living Situation History: Household Members: None Housing: Apartment Are you a primary medication care manager to a significant other at home: No Do you presently have visiting nurse or other home services: Yes Alcohol History: Unable to assess alcohol history related to: Unable to respond Unable to assess alcohol history related to: Unknown Alcohol History Details: 1. How often do you have a drink containing alcohol?: a. Never AUDIT-C Alcohol total score: 0 Currently Displaying Signs/Symptoms of Alcohol Withdrawal: No Tobacco History: Patient Tobacco Use Status: Former Tobacco user Tobacco use type: Cigarette Years Smoked: 30-40 Smoke Quit Date: 2005 Second Hand Smoke Exposure: No Substance Use History: Use of substances other than those prescribed or required for medical reasons: No Substance Use Type: Crack/Cocaine Currently Displaying Signs/Symptoms of Drug Intoxication Withdrawal: No Domestic Abuse History: Have you been hit, kicked, punched, or otherwise hurt by someone within the past year? If so, by whom?: No Do you feel safe in your current relationship?: Yes Is there a partner from a previous relationship who is making you feel unsafe now?: No Are you made to feel afraid or neglected: No Advance Directives: Advance Directives: Yes Advance Directives Information Provided: Yes Advance Directives on File: No Advance Directives Date on File: 06/13/23 Homicidal Assessment: Do you have a plan to hurt others: No Plan Nutrition Assessment: Recently lost weight without trying: No Nutrition Risks: No Nutritional Risk Patient : No : No Poor oral hygiene: No Occupation Assessmet: service: No Current occupational status: disabled Home Medications and Allergies Current Medications: Current Medications Acetaminophen (Acetaminophen 325 Mg Tablet) 650 mg PO Q6H PRN PRN Reason: Pain, Mild (Pain Scale 1-3) Albuterol Sulfate (Albuterol Sulfate 90 Mcg 8 Gm Inhaler) 2 puff INHALE QID PRN PRN Reason: Respiratory Distress Albuterol/Ipratropium (Albuterol/Iprat 2.5/0.5mg 3 Ml Ampul.Neb) 3 ml INHALE RQ4H WHILE AWAKE [facility] Last Admin: 06/14/23 07:49 Dose: 3 ml Amlodipine Besylate (Amlodipine Besylate 5 Mg Tablet) 5 mg PO DAILY [facility]; Protocol Duloxetine HCl (Duloxetine Hcl 60 Mg Capsule.Dr) 60 mg PO DAILY [facility] Ezetimibe (Ezetimibe 10 Mg Tablet) 10 mg PO DAILY [facility] Fluticasone Propionate (Fluticasone Propionate 100 Mcg Blst.W.Dev) 1 puff INHALE RBID [facility] Last Admin: 06/14/23 07:49 Dose: 1 puff Glucose (Glucose Gel 15 Gm Gel..Gram.) 15 gm PO Q15M PRN; Protocol PRN Reason: per Hypoglycemia Standing Ord. Hydrochlorothiazide (Hydrochlorothiazide 25 Mg Tablet) 25 mg PO DAILY [facility] Dextrose (D10) 250 mls @ 750 mls/hr IV Q15M PRN; Protocol PRN Reason: per Hypoglycemia Standing Ord. Insulin Human Lispro (Insulin Lispro 100 Unit/Ml 3 Ml Vial) 0 unit SUBCUT QIDACHS [facility]; Protocol Last Admin: 06/14/23 07:42 Dose: Not Given Lisinopril (Lisinopril 20 Mg Tablet) 20 mg PO DAILY [facility] Metoprolol Tartrate (Metoprolol Tartrate 25 Mg Tablet) 25 mg PO BID [facility]; Protocol Last Admin: 06/13/23 21:36 Dose: 25 mg Montelukast Sodium (Montelukast Sodium 10 Mg Tablet) 10 mg PO BEDTIME [facility] Last Admin: 06/13/23 21:35 Dose: 10 mg Non-Formulary Medication (Rosuvastatin) 20 mg PO BEDTIME [facility] Ondansetron HCl (Ondansetron Hcl 4 Mg/2 Ml Vial) 4 mg IVPUSH Q8H PRN PRN Reason: Nausea and Vomiting Quetiapine Fumarate (Quetiapine Fumarate 100 Mg Tablet) 150 mg PO BEDTIME [facility] Last Admin: 06/13/23 21:36 Dose: 150 mg Sodium Chloride (0.9 % Sodium Chloride Flush 3 Ml Syringe) 3 ml IVFLUSH QSHIFT [facility] Last Admin: 06/13/23 21:37 Dose: 3 ml Torsemide (Torsemide 20 Mg Tablet) 20 mg PO DAILY [facility]; Protocol Home Medications ?Medication ?Instructions ?Recorded ?Confirmed ?Type lancing device with lancets kit #1 ea 03/24/21 03/23/23 History (DataSync Lancing Device kit) albuterol sulfate 90 mcg/actuation 2 puff inhalation QID PRN 11/30/21 06/13/23 History aerosol inhaler Respiratory Distress ferrous sulfate 325 mg (65 mg 325 mg PO DAILY 11/30/21 06/13/23 History iron) tablet insulin lispro 100 unit/mL See Protocol subcut TIDAC 06/09/22 06/13/23 History subcutaneous pen (Humalog KwikPen (U-100) Insulin) acetaminophen 650 mg 650 mg PO TID 06/13/23 06/13/23 History tablet,extended release amlodipine 5 mg tablet 5 mg PO DAILY 06/13/23 06/13/23 History diclofenac sodium 1 % topical gel 4 g topical QID PRN Pain (Scale 06/13/23 06/13/23 History Score 1-3) duloxetine 60 mg capsule,delayed 60 mg PO DAILY 06/13/23 06/13/23 History release ezetimibe 10 mg tablet 10 mg PO DAILY 06/13/23 06/13/23 History fluticasone furoate 100 1 inh inhalation DAILY 06/13/23 06/13/23 History mcg/actuation blister powder for inhalation (Arnuity Ellipta) insulin glargine 100 unit/mL (3 6 unit subcut BEDTIME 06/13/23 06/13/23 History mL) subcutaneous pen (Lantus Solostar U-100 Insulin) lisinopril 20 1 tab PO DAILY 06/13/23 06/13/23 History mg-hydrochlorothiazide 25 mg tablet metoprolol tartrate 25 mg tablet 25 mg PO BID 06/13/23 06/13/23 History montelukast 10 mg tablet 10 mg PO BEDTIME 06/13/23 06/13/23 History quetiapine 150 mg tablet 150 mg PO BEDTIME 06/13/23 06/13/23 History rosuvastatin 20 mg tablet 20 mg PO BEDTIME 06/13/23 06/13/23 History torsemide 10 mg tablet 20 mg PO DAILY 06/13/23 06/13/23 History Allergies Allergy/AdvReac Type Severity Reaction Status Date / Time atorvastatin [ATORVASTATIN] Allergy Intermediate SWELLING Verified 06/13/23 09:54 morphine [MORPHINE] Allergy Intermediate RASH Verified 06/13/23 09:54 zolpidem [From AMBIEN] AdvReac Intermediate SLEEP WALKS Verified 06/13/23 09:54 Physical Exam Vital signs: Vital Signs Temp 97.8 F 06/14/23 08:00 Pulse 64 06/14/23 08:00 Resp 16 06/14/23 08:00 BP 155/65 H 06/14/23 08:00 Pulse Ox 97 06/14/23 08:00 O2 Del Method Room Air 06/14/23 08:00 Intake & Output 06/13/23 06/14/23 06/14/23 18:59 06:59 18:59 Intake Total 0 / 1060 1060 / 1060 Output Total 1000 / 1000 Balance 0 / 60 60 / 60 Urine Output (Average ml/kg/hr) 0.77 Intake: Intake, Oral Amount 260 / 260 Intake (Blood Product) Amount 0 / 700 700 / 700 Red Blood Cells (E0336) Unit 0 / 350 350 / 350 [id number] Red Blood Cells (E0336) Unit 350 / 350 [id number] Intake, IV Amount 100 / 100 0.9 % Sodium Chloride 100 ml @ 100 / 100 100 mls/hr IV ONCE ONE Rx#: [id number] Output: Output, Urine Amount (Catheter) 1000 / 1000 belcher 1000 / 1000 Other: Urine Color Tea Last Bowel Movement 07/10/23 Weight 107.7 kg 107.7 kg [place] Weight in Grams [id number] Weight 107.7 kg - Constitutional Present: no acute distress, obese - Routine HEENT Exam Head: Present: normal inspection Eye: Present: EOMI - Routine Neck Exam Present: supple. Absent: lymphadenopathy - Routine Respiratory Exam Absent: accessory muscle use - Routine Cardiovascular Exam Cardiovascular: Present: S1, S2 - Routine Extremities Exam Present: pulses intact Hem/Onc Consult Result - Labs CBC & Chem 7: 06/16/23 06:36 06/16/23 06:36 Labs: Short CBC 06/13/23 06/14/23 Range/Units 11:53 05:46 WBC 8.1 8.5 (4.8-10.8) X10*3/uL Hgb 6.6 L* 8.8 L D (12.0-16.0) g/dl Hct 21.6 L 27.6 L D (37.0-47.0) % Plt Count 259 242 (160-400) X10*3/uL BMP 06/13/23 06/14/23 11:53 05:46 Sodium 143 142 Potassium 5.2 H 5.7 H Chloride 115 H 115 H Carbon Dioxide 19 L 18 L BUN 50 H 52 H Creatinine 2.67 H 3.05 H Calcium 8.1 L 8.8 D Assessment and Plan Patient Active problem list reviewed?: Yes (1) Anemia Status: Chronic Assessment and plan: 1. This is a 77-year-old woman was diagnosed with right kidney cancer in 2022. She has a 5.3 cm heterogenously enhancing exophytic right upper pole renal mass, she was referred to Dr. Quiñones at [facility]. Because of her comorbidities, she has not undergone surgery. She has switched her urological care to [facility]. She will need outpatient staging scans if not performed already. 2. Anemia secondary to GI bleed. She has had EGD. Results awaited. She has chronic underlying anemia secondary to kidney disease as well as malignancy. I will be happy to follow her upon discharge. Thank you for the consult. - Time Spent With Patient Time Spent with Patient (in minutes): 20
[2023-06-14] MEDS: hydroCHLOROthiazide 25 MG TABLET PO (08:16)
[2023-06-14] MEDS: Torsemide 20 MG TABLET PO (08:16)
[2023-06-14] MEDS: DULoxetine HCl 60 MG CAPSULE.DR PO (08:16)
[2023-06-14] MEDS: Ezetimibe 10 MG TABLET PO (08:16)
[2023-06-14] MEDS: lisinopriL 20 MG TABLET PO (08:17)
[2023-06-14] MEDS: Metoprolol Tartrate 25 MG TABLET PO ×2 (08:17→20:29)
[2023-06-14] MEDS: amLODIPine Besylate 5 MG TABLET PO (08:17)
[2023-06-14] MEDS: 0.9 % Sodium Chloride Flush 3 ML SYRINGE IVFLUSH ×3 (08:19→20:31)
--- NOTE | 2023-06-14 13:10 | PM.EVENT ---
Event Note Date of Service: 06/14/23 Event Note: GI-Consult Dictated Imp: Melena, Heme + stool, Anemia Rec: EGD with MAC 06/14. Full consent obtained for this, including risks of bleeding and perforation. Thanks Time Spent With Patient Time: Total time managing care of this patient today ____ minutes.
[2023-06-14] MEDS: Sodium Zirconium Cyclosilicate 10 GM POWD.PACK PO (14:07)
--- NOTE | 2023-06-14 15:20 | P.CDIM_ITS ---
PROVIDER RESPONSE TEXT: To clarify, the appropriate diagnosis supported by the clinical indicators: Other (explain): Corrected calcium for hypoalbuminemia is 8.6 . There is no hypocalcemia QUERY TEXT: PHYSICIAN'S DOCUMENTATION REQUEST Date of Query: 06/14/2023 10:01 AM EDT Patient Name: Shweta Woodard Admit Date: 06/13/2023 Dear Suzanne CHERRY, A review of the medical record indicates additional documentation may be needed. Please review below and update the documentation accordingly. Clinical Indicators: LAB FINDINGS: calcium 7.9 L 8.1 Based on the above, is there a diagnosis that correlates with these lab findings: Hypocalcemia resolved, possible, probable Labs indicate a diagnosis of (please specify) Other (explain) Clinically unable to determine (explain) Thank you, Ting Kennedy, CCS, CDIS Use of terms such as suspected, likely, concern for, or probable (associated with a specific diagnosi s that is being evaluated, monitored, or treated as if it exists) are acceptable and can be coded in the inpatient se tting, when documented at the time of discharge. Please use your independent medical judgment in providing your response. THIS QUERY IS PART OF THE PERMANENT MEDICAL RECORD
[2023-06-14 15:38] LABS: Glucose, Whole Blood 150 mg/dL (60-115)
[2023-06-14 15:38] LABS: Glucose, Whole Blood 103 mg/dL (60-115)
--- NOTE | 2023-06-14 15:50 | P.CDIM_ITS ---
PROVIDER RESPONSE TEXT: To clarify, the appropriate diagnosis supported by the clinical indicators: Other (explain): She has CKD stage 4, no LETHA QUERY TEXT: PHYSICIAN'S DOCUMENTATION REQUEST Date of Query: 06/14/2023 11:31 AM EDT Patient Name: Shweta Woodard Admit Date: 06/13/2023 Dear Suzanne CHERRY, A review of the medical record indicates additional documentation may be needed. Please review below and update the documentation accordingly. Clinical Indicators: Anesthesiology consultation note dated 06/12 - The patient has had worsening LETHA since February of this year. The patient underwent lab testing on arrival to [facility] today because of known LETHA with marked azotemia. BUN/creat 53/2.8 previously 4.8 w BUN/creat 69/3.8 On questioning she told me that her stool has been dark dark dark for a couple of months. CKD 4 Consistency and/or clarity of a noted diagnosis within the medical record: Acute renal failure suspected, possible, probable, not treating this dx. Other Other (explain) Clinically unable to determine (explain) Thank you, Ting Kennedy, CCS, CDIS Use of terms such as suspected, likely, concern for, or probable (associated with a specific diagnosi s that is being evaluated, monitored, or treated as if it exists) are acceptable and can be coded in the inpatient se tting, when documented at the time of discharge. Please use your independent medical judgment in providing your response. THIS QUERY IS PART OF THE PERMANENT MEDICAL RECORD
[2023-06-14 16:32] LABS: Glucose, Whole Blood 101 mg/dL (60-115)
[2023-06-14] MEDS: Montelukast Sodium 10 MG TABLET PO (20:29)
[2023-06-14] MEDS: QUEtiapine Fumarate 100 MG TABLET 150 MG PO (20:29)
[2023-06-14 20:43] LABS: Glucose, Whole Blood 136 mg/dL (60-115)
--- NOTE | 2023-06-14 22:49 | MHC.SHP ---
Pre-Procedural Eval Section A - 24 Hr Update-Section A only Date of Service: 06/15/23 The patient is an INPATIENT: Yes The patient has been examined within 24 hours of the surgical procedure. The History & Physical has been completed within 30 days and I have reviewed it.: Yes Section B - Complete if H&P > 30 days Chief Complaint: anemia Allergies: Allergies Allergy/AdvReac Type Severity Reaction Status Date / Time atorvastatin [ATORVASTATIN] Allergy Intermediate SWELLING Verified 06/13/23 09:54 morphine [MORPHINE] Allergy Intermediate RASH Verified 06/13/23 09:54 zolpidem [From AMBIEN] AdvReac Intermediate SLEEP WALKS Verified 06/13/23 09:54 Plan I have reviewed the history and physical and performed a pertinent physical examination on my patient. No changes have occurred unless specified. Time Spent With Patient Time: Total time managing care of this patient today ____ minutes.
[2023-06-14] MEDS: Pantoprazole Sodium 40 MG/10 ML VIAL IVPUSH (23:30)
[2023-06-15] VITALS (14 sets, daily range): BP systolic 97–131; BP diastolic 47–64; PULSE 58–82; RESP 12–20; TEMP 36.1–36.8; O2SAT 94–100
--- NOTE | 2023-06-15 04:17 | CONS_ITS ---
DATE OF SERVICE: 06/14/2023 REASON FOR CONSULTATION: Anemia, heme-positive stool, and melena. HISTORY OF PRESENT ILLNESS: The patient is a 77-year-old female, well known to me from previous office visit and procedures. I last saw her in October 2021, at which time, she underwent a colonoscopy for followup of a personal history of tubular adenoma of the colon. Colonoscopy was limited due to a relatively poor prep despite taking a 2-day preparation at home. I did not visualize any sign of polyps, but again the prep was quite limited. She was noted to have some diverticulosis and internal hemorrhoids. Her previous history was notable for a colonoscopy in 2010 with removal of flat adenomas, including 1 in the transverse colon in which the area was marked with submucosal ink. The colonoscopy in 2018 had revealed some residual polyp tissue in the transverse colon at the area of the previous polypectomy, and this was removed. The prep was somewhat poor at that time as well. Again, the most recent colonoscopy in 2021 was limited due to the prep as well. After the colonoscopy in October 2021, we had decided to hold off on any further colonoscopies due to the patient's comorbidities and the fact that she was having a difficult time achieving adequate clean out even with a 2-day preparation. In any event, the patient was diagnosed with a right renal mass and hydronephrosis. She has had a fairly longstanding anemia as well with a hemoglobin of 9.5 in June 2022 and 8.5 in March of 2023. However, she was admitted to short-stay surgery yesterday for planned urologic procedure with Dr. Quigley and at that time, was noted to have a hemoglobin of 6.6. She was transferred to the ER for admission. She has received 2 units of blood since admission and her hemoglobin has increased up to 8.8 this morning. She does have heme-positive stool. The patient denies any particularly new GI symptoms. She remains constipated but has not noticed any hematochezia. She denies any specific abdominal pain. She does take iron for her anemia. Over the past 2 months she has noticed a change in her bowel movements in which they have become somewhat darker. There has been no nausea, vomiting, anorexia, nor dysphagia. She denies any significant heartburn. There has been no hematochezia. She denies any history of previous upper GI issues such as ulcer disease. She does have a family history of colon cancer in her father in his late 70s. She does take Advil as well as Tylenol fairly regularly at home. She is also on Eliquis for atrial fibrillation. She has also been on a low-dose aspirin. MEDICATIONS: At home include acetaminophen, albuterol inhaler, amlodipine, diclofenac sodium, duloxetine, Eliquis, ezetimibe, ferrous sulfate, insulin, lisinopril with hydrochlorothiazide, metoprolol, montelukast, quetiapine, rosuvastatin, and torsemide. Medications here in the hospital include acetaminophen, albuterol, amlodipine, duloxetine, Zetia, hydrochlorothiazide, insulin, lisinopril, metoprolol, montelukast, Zofran p.r.n., quetiapine, rosuvastatin, and torsemide. PAST MEDICAL HISTORY: Colon polyps with her most recent colonoscopy in 2021 being negative, but was also limited by a relatively poor prep despite a 2-day preparation at home. She has coronary artery disease with [place] and coronary artery stent placed in 2006. Diabetes mellitus. Depression. Atrial fibrillation. UTIs. Renal insufficiency. Renal mass as described above, followed by Dr. Kuo and Dr. Quigley. Cholecystectomy. . Neck surgery. She has chronic renal insufficiency. History of arthritis. Anxiety. Hyperlipidemia. SOCIAL HISTORY: The patient does not smoke nor use any significant amounts of alcohol. She is single. FAMILY HISTORY: As above. REVIEW OF SYSTEMS: CONSTITUTIONAL: She has been feeling somewhat fatigued. SKIN: No rash, no pruritus. CARDIAC: No chest pain. PULMONARY: No cough, no hemoptysis. GI: As above. URINARY: No dysuria. No hematuria. NEUROLOGIC: No headache or seizures. PHYSICAL EXAMINATION: GENERAL: The patient is a pleasant, alert, comfortable-appearing female. HEENT: Anicteric sclerae. NECK: Supple. CARDIAC: Normal S1, S2. ABDOMEN: Soft, nondistended, nontender without palpable mass. LABORATORY DATA: Stool was heme positive. White blood cell count today 8.5, hemoglobin 8.8 after 2 units of blood. Platelet count of 242,000. Sodium 142, potassium 5.7, chloride 115, CO2 18, BUN 62, creatinine 3.05. Magnesium 2.6, calcium 8.8. Iron 23, iron saturation 11%, ferritin 48. Her most recent imaging of the abdomen was MRI last September describing a 5 cm lesion in the right upper pole of the kidney, suspicious for carcinoma. IMPRESSION: The patient is a 77-year-old female presenting with a worsening anemia and noted black stools while on Eliquis and iron for a previous chronic anemia as well. Her dark stools could very well be from the iron, but she reports that for several months before that while on the iron, she did not have any dark stools. She is not having any particular localizing GI complaints. At this point given her significant anemia, reported black stool as well as heme-positive stool, and the chronic need for Eliquis, I think it would be reasonable that she undergo an upper endoscopy for evaluation to rule out any significant upper GI tract lesion causing anemia. Overall, I suspect the cause of her anemia is multifactorial including renal failure and chronic disease. I would want to exclude a chronic upper GI source including ulcer disease, significant gastritis, gastropathy, and the less likely possibility of a neoplasm. I can obtain biopsies from the duodenum to rule out celiac disease, although I think that would be unlikely. At this point, she will an undergo upper endoscopy with monitored anesthesia care. Full consent has been obtained from her for that, including risks of bleeding and perforation. At this point, I would hold off on a colonoscopy given the clinical history, her multiple exams in the past, and the difficulty in achieving an adequate prep at this time. I would continue to follow her laboratories as well. Thank you for the consultation. MD MICAELA Ferguson/HERIBERTO / [id number] IMMANUEL
[2023-06-15] MEDS: Pantoprazole Sodium 40 MG/10 ML VIAL IVPUSH (05:40)
[2023-06-15 07:17] LABS: Glucose, Whole Blood 91 mg/dL (60-115)
[2023-06-15 07:28] LABS: MANUAL DIFF FLAG NO
[2023-06-15 07:37] LABS: Basophils Percent Auto 0.4 % (0-2); Eosinophils Absolute Auto 0.2 X10*3/uL (0.0-0.4); Eosinophils Percent Auto 2.9 % (0-4); Hematocrit 26.2 % (37.0-47.0); Hemoglobin 8.3 g/dl (12.0-16.0); Imm Gran Abs Auto 0.03 X10*3/uL (0.00-0.03); Imm Gran Pct Auto 0.4 % (0.0-0.4); Lymphocytes Absolute Auto 1.5 X10*3/uL (1.2-4.9); Lymphocytes Percent Auto 20.3 % (20-40); Mean Corpuscular HGB Conc 31.7 g/dl (31.0-35.0); Mean Corpuscular Hemoglobin 29.5 pg (27.0-33.0); Mean Corpuscular Volume 93.2 fL (80.0-98.0); Monocytes Absolute Auto 0.6 X10*3/uL (0.1-1.2); Monocytes Percent Auto 8.3 % (2-11); Neutrophils Absolute Auto 5.2 x10*3/uL (2.0-8.3); Neutrophils Percent Auto 67.7 % (45-73); Platelet Count 232 X10*3/uL (160-400); Red Blood Count 2.81 X10*6/uL (4.20-5.50); Red Cell Distribution Width 15.9 % (11.0-16.0); White Blood Count 7.6 X10*3/uL (4.8-10.8)
[2023-06-15 07:45] LABS: INTERNATIONAL NORM RATIO 1.1 (0.9-1.1); Prothrombin Time 13.6 SEC (11.1-13.3)
[2023-06-15 07:49] LABS: Anion Gap 17 (12-20); Blood Urea Nitrogen 54 mg/dL (9-16); Calcium 8.1 mg/dL (8.4-10.2); Carbon Dioxide 17 mmol/L (22-29); Chloride 113 mmol/L (96-108); Creatinine Clr Calc Pharmacy 18.2; Estimated Glomerular Filt Rate 14; Glucose Random 96 mg/dL (60-115); Potassium 5.1 mmol/L (3.3-5.1); Sodium 142 mmol/L (135-145)
[2023-06-15] MEDS: Fluticasone Propionate 100 MCG BLST.W.DEV 1 PUFF INHALE ×2 (07:57→20:26)
[2023-06-15] MEDS: Albuterol/Iprat 2.5/0.5MG 3 ML AMPUL.NEB INHALE ×4 (07:57→20:26)
[2023-06-15] MEDS: DULoxetine HCl 60 MG CAPSULE.DR PO (08:43)
[2023-06-15] MEDS: Metoprolol Tartrate 25 MG TABLET PO ×2 (08:43→20:40)
[2023-06-15] MEDS: hydroCHLOROthiazide 25 MG TABLET PO (08:43)
[2023-06-15] MEDS: Ezetimibe 10 MG TABLET PO (08:43)
[2023-06-15] MEDS: 0.9 % Sodium Chloride Flush 3 ML SYRINGE IVFLUSH ×2 (08:44→16:38)
[2023-06-15] MEDS: amLODIPine Besylate 5 MG TABLET PO (08:44)
[2023-06-15] MEDS: Torsemide 20 MG TABLET PO (08:44)
[2023-06-15 11:23] LABS: Glucose, Whole Blood 96 mg/dL (60-115)
--- NOTE | 2023-06-15 12:16 | P.CONAN_ITS ---
[facility] Active Problems Active Problems: All Active Problems GI bleed (Acute) Anemia (Acute) Chronic kidney disease (Acute) Anemia (Acute) Renal cancer (Acute) Right renal mass (Acute) Recurrent UTI (Acute) Hydronephrosis, left (Acute) Pyuria (Acute) Renal mass (Acute) Urinary incontinence without sensory awareness (Acute) Hydroureteronephrosis (Acute) Urinary retention with incomplete bladder emptying (Acute) Chronic UTI (urinary tract infection) (Acute) Frequency of micturition (Acute) HTN (hypertension) (Acute) Diabetes mellitus (Acute) High cholesterol (Acute) Urgency incontinence (Acute) Past Medical History Medical History CKD (chronic kidney disease) stage 4, GFR 15-29 ml/min CAD (coronary artery disease) History of myocardial infarction Type 2 diabetes mellitus with unspecified complications Paroxysmal atrial fibrillation Multiple falls Arthritis Limited mobility Chronic pain Anxiety and depression Asthma Urgency incontinence High cholesterol Lateral malleolar fracture HTN (hypertension) Functional capacity: independent ambulation Patient : No Family History Family History Father No problems noted. Mother Diabetes High blood pressure Stomach cancer Family history of problems with anesthesia: No Surgical History Surgical History History of cystoscopy Hx of cholecystectomy History of cataract extraction History of heart artery stent Hx of colonoscopy H/O neck surgery History of Problems with Anesthesia: No Social History Social History Household Members: None Housing: Apartment Are you a primary tree care foreman to a significant other at home: No Do you presently have visiting nurse or other home services: Yes Unable to assess alcohol history related to: Unable to respond and Unknown Alcohol intake: never Patient Tobacco Use Status: Former Tobacco user Quit Date: 2005 Tobacco use type: Cigarette Years Smoked: 30-40 Second Hand Smoke Exposure: No Substance Use Type: Crack/Cocaine Advance Directives Date on File: 06/13/23 service: No Current occupational status: disabled Meds Allergies Allergy/AdvReac Type Severity Reaction Status Date / Time atorvastatin [ATORVASTATIN] Allergy Intermediate SWELLING Verified 06/13/23 09:54 morphine [MORPHINE] Allergy Intermediate RASH Verified 06/13/23 09:54 zolpidem [From AMBIEN] AdvReac Intermediate SLEEP WALKS Verified 06/13/23 09:54 Active Medications: Current Medications Acetaminophen (Acetaminophen 325 Mg Tablet) 650 mg PO Q6H PRN PRN Reason: Pain, Mild (Pain Scale 1-3) Albuterol Sulfate (Albuterol Sulfate 90 Mcg 8 Gm Inhaler) 2 puff INHALE QID PRN PRN Reason: Respiratory Distress Albuterol/Ipratropium (Albuterol/Iprat 2.5/0.5mg 3 Ml Ampul.Neb) 3 ml INHALE RQ4H WHILE AWAKE [facility] Last Admin: 06/15/23 11:23 Dose: 3 ml Amlodipine Besylate (Amlodipine Besylate 5 Mg Tablet) 5 mg PO DAILY [facility]; Protocol Last Admin: 06/15/23 08:44 Dose: 5 mg Duloxetine HCl (Duloxetine Hcl 60 Mg Capsule.Dr) 60 mg PO DAILY [facility] Last Admin: 06/15/23 08:43 Dose: 60 mg Ezetimibe (Ezetimibe 10 Mg Tablet) 10 mg PO DAILY [facility] Last Admin: 06/15/23 08:43 Dose: 10 mg Fluticasone Propionate (Fluticasone Propionate 100 Mcg Blst.W.Dev) 1 puff INHALE RBID [facility] Last Admin: 06/15/23 07:57 Dose: 1 puff Glucose (Glucose Gel 15 Gm Gel..Gram.) 15 gm PO Q15M PRN; Protocol PRN Reason: per Hypoglycemia Standing Ord. Hydrochlorothiazide (Hydrochlorothiazide 25 Mg Tablet) 25 mg PO DAILY [facility] Last Admin: 06/15/23 08:43 Dose: 25 mg Dextrose (D10) 250 mls @ 750 mls/hr IV Q15M PRN; Protocol PRN Reason: per Hypoglycemia Standing Ord. Insulin Human Lispro (Insulin Lispro 100 Unit/Ml 3 Ml Vial) 0 unit SUBCUT QIDACHS [facility]; Protocol Last Admin: 06/15/23 11:20 Dose: Not Given Lisinopril (Lisinopril 20 Mg Tablet) 20 mg PO DAILY [facility] Last Admin: 06/14/23 08:17 Dose: 20 mg Metoprolol Tartrate (Metoprolol Tartrate 25 Mg Tablet) 25 mg PO BID [facility]; Protocol Last Admin: 06/15/23 08:43 Dose: 25 mg Montelukast Sodium (Montelukast Sodium 10 Mg Tablet) 10 mg PO BEDTIME [facility] Last Admin: 06/14/23 20:29 Dose: 10 mg Non-Formulary Medication (Rosuvastatin) 20 mg PO BEDTIME [facility] Ondansetron HCl (Ondansetron Hcl 4 Mg/2 Ml Vial) 4 mg IVPUSH Q8H PRN PRN Reason: Nausea and Vomiting Pantoprazole Sodium (Pantoprazole Sodium 40 Mg/10 Ml Vial) 40 mg IVPUSH BID@0630,1630 [facility] Last Admin: 06/15/23 05:40 Dose: 40 mg Quetiapine Fumarate (Quetiapine Fumarate 100 Mg Tablet) 150 mg PO BEDTIME [facility] Last Admin: 06/14/23 20:29 Dose: 150 mg Sodium Chloride (0.9 % Sodium Chloride Flush 3 Ml Syringe) 3 ml IVFLUSH QSHIFT [facility] Last Admin: 06/15/23 08:44 Dose: 3 ml Torsemide (Torsemide 20 Mg Tablet) 20 mg PO DAILY [facility]; Protocol Last Admin: 06/15/23 08:44 Dose: 20 mg Home Medications ?Medication ?Instructions ?Recorded ?Confirmed ?Last Taken ?Type lancing device with lancets kit #1 ea 03/24/21 03/23/23 Unknown History (GroupSwimSatispay Lancing Device kit) albuterol sulfate 90 mcg/actuation 2 puff inhalation QID PRN 11/30/21 06/13/23 Unknown History aerosol inhaler Respiratory Distress ferrous sulfate 325 mg (65 mg 325 mg PO DAILY 11/30/21 06/13/23 Unknown History iron) tablet insulin lispro 100 unit/mL See Protocol subcut TIDAC 06/09/22 06/13/23 Unknown History subcutaneous pen (Humalog KwikPen (U-100) Insulin) acetaminophen 650 mg 650 mg PO TID 06/13/23 06/13/23 Unknown History tablet,extended release amlodipine 5 mg tablet 5 mg PO DAILY 06/13/23 06/13/23 Unknown History diclofenac sodium 1 % topical gel 4 g topical QID PRN Pain (Scale 06/13/23 06/13/23 Unknown History Score 1-3) duloxetine 60 mg capsule,delayed 60 mg PO DAILY 06/13/23 06/13/23 Unknown History release ezetimibe 10 mg tablet 10 mg PO DAILY 06/13/23 06/13/23 Unknown History fluticasone furoate 100 1 inh inhalation DAILY 06/13/23 06/13/23 Unknown History mcg/actuation blister powder for inhalation (Arnuity Ellipta) insulin glargine 100 unit/mL (3 6 unit subcut BEDTIME 06/13/23 06/13/23 Unknown History mL) subcutaneous pen (Lantus Solostar U-100 Insulin) lisinopril 20 1 tab PO DAILY 06/13/23 06/13/23 Unknown History mg-hydrochlorothiazide 25 mg tablet metoprolol tartrate 25 mg tablet 25 mg PO BID 06/13/23 06/13/23 Unknown History montelukast 10 mg tablet 10 mg PO BEDTIME 06/13/23 06/13/23 Unknown History quetiapine 150 mg tablet 150 mg PO BEDTIME 06/13/23 06/13/23 Unknown History rosuvastatin 20 mg tablet 20 mg PO BEDTIME 06/13/23 06/13/23 Unknown History torsemide 10 mg tablet 20 mg PO DAILY 06/13/23 06/13/23 Unknown History Exam Height,Weight and Vital Signs: Height 5 ft 3 in Weight 107.7 kg Last Vital Signs Temp 97.8 F 06/15/23 11:40 Pulse 77 06/15/23 11:40 Resp 20 06/15/23 11:40 BP 120/62 06/15/23 11:40 Pulse Ox 98 06/15/23 11:40 O2 Del Method Room Air 06/15/23 11:40 Pertinent Lab Results Pertinent Lab Results: Laboratory Tests 06/13/23 06/13/23 06/13/23 11:13 11:53 16:20 WBC 8.1 RBC 2.19 L Hgb 6.6 L* Hct 21.6 L MCV 98.6 H MCH 30.1 MCHC 30.6 L RDW 12.8 Plt Count 259 MPV 10.0 Immature Gran % (Auto) 0.2 Neut % (Auto) 62.3 Lymph % (Auto) 25.7 [place] % (Auto) 8.7 Eos % (Auto) 2.6 Baso % (Auto) 0.5 Lymph # (Auto) 2.1 [place] # (Auto) 0.7 Eos # (Auto) 0.2 Baso # (Auto) 0.0 Abs Immat Gran (auto) 0.02 Absolute Neuts (auto) 5.0 Absolute Nucleated RBC 0.000 Nucleated RBC % (auto) 0.0 PT INR Sodium 143 Potassium 5.2 H Chloride 115 H Carbon Dioxide 19 L Anion Gap 14 BUN 50 H Creatinine 2.67 H Estim Creat Clear Calc 21.3 Estimated GFR 17 POC Glucose 103 Random Glucose 107 Calcium 8.1 L Magnesium Iron 23 L TIBC 208 L % Saturation 11 L Unsat Iron Binding 185 Ferritin 48 Stool Occult Blood POSITIVE Blood Type O Positive Antibody Screen NEGATIVE Crossmatch See Detail 06/13/23 06/13/23 06/14/23 19:14 21:18 05:46 WBC 8.5 RBC 2.93 L D Hgb 8.8 L D Hct 27.6 L D MCV 94.2 MCH 30.0 MCHC 31.9 RDW 16.5 H Plt Count 242 MPV 10.8 Immature Gran % (Auto) 0.2 Neut % (Auto) 65.7 Lymph % (Auto) 20.6 [place] % (Auto) 9.9 Eos % (Auto) 3.2 Baso % (Auto) 0.4 Lymph # (Auto) 1.8 [place] # (Auto) 0.8 Eos # (Auto) 0.3 Baso # (Auto) 0.0 Abs Immat Gran (auto) 0.02 Absolute Neuts (auto) 5.6 Absolute Nucleated RBC 0.000 Nucleated RBC % (auto) 0.0 PT INR Sodium 142 Potassium 5.7 H Chloride 115 H Carbon Dioxide 18 L Anion Gap 15 BUN 52 H Creatinine 3.05 H Estim Creat Clear Calc 18.7 Estimated GFR 15 POC Glucose 150 H 155 H Random Glucose 99 Calcium 8.8 D Magnesium 2.6 Iron TIBC % Saturation Unsat Iron Binding Ferritin Stool Occult Blood Blood Type Antibody Screen Crossmatch 06/14/23 06/14/23 06/14/23 07:21 11:29 16:28 WBC RBC Hgb Hct MCV MCH MCHC RDW Plt Count MPV Immature Gran % (Auto) Neut % (Auto) Lymph % (Auto) [place] % (Auto) Eos % (Auto) Baso % (Auto) Lymph # (Auto) [place] # (Auto) Eos # (Auto) Baso # (Auto) Abs Immat Gran (auto) Absolute Neuts (auto) Absolute Nucleated RBC Nucleated RBC % (auto) PT INR Sodium Potassium Chloride Carbon Dioxide Anion Gap BUN Creatinine Estim Creat Clear Calc Estimated GFR POC Glucose 93 133 H 101 Random Glucose Calcium Magnesium Iron TIBC % Saturation Unsat Iron Binding Ferritin Stool Occult Blood Blood Type Antibody Screen Crossmatch 06/14/23 06/15/23 06/15/23 20:34 06:43 06:44 WBC 7.6 RBC 2.81 L Hgb 8.3 L Hct 26.2 L MCV 93.2 MCH 29.5 MCHC 31.7 RDW 15.9 Plt Count 232 MPV 11.0 Immature Gran % (Auto) 0.4 Neut % (Auto) 67.7 Lymph % (Auto) 20.3 [place] % (Auto) 8.3 Eos % (Auto) 2.9 Baso % (Auto) 0.4 Lymph # (Auto) 1.5 [place] # (Auto) 0.6 Eos # (Auto) 0.2 Baso # (Auto) 0.0 Abs Immat Gran (auto) 0.03 Absolute Neuts (auto) 5.2 Absolute Nucleated RBC 0.000 Nucleated RBC % (auto) 0.0 PT 13.6 H INR 1.1 Sodium 142 Potassium 5.1 Chloride 113 H Carbon Dioxide 17 L Anion Gap 17 BUN 54 H Creatinine 3.14 H Estim Creat Clear Calc 18.2 Estimated GFR 14 POC Glucose 136 H Random Glucose 96 Calcium 8.1 L D Magnesium Iron TIBC % Saturation Unsat Iron Binding Ferritin Stool Occult Blood Blood Type Antibody Screen Crossmatch 06/15/23 06/15/23 07:10 11:17 WBC RBC Hgb Hct MCV MCH MCHC RDW Plt Count MPV Immature Gran % (Auto) Neut % (Auto) Lymph % (Auto) [place] % (Auto) Eos % (Auto) Baso % (Auto) Lymph # (Auto) [place] # (Auto) Eos # (Auto) Baso # (Auto) Abs Immat Gran (auto) Absolute Neuts (auto) Absolute Nucleated RBC Nucleated RBC % (auto) PT INR Sodium Potassium Chloride Carbon Dioxide Anion Gap BUN Creatinine Estim Creat Clear Calc Estimated GFR POC Glucose 91 96 Random Glucose Calcium Magnesium Iron TIBC % Saturation Unsat Iron Binding Ferritin Stool Occult Blood Blood Type Antibody Screen Crossmatch Airway Mallampati Class: IV TM Dist: >3cm Neck ROM: Full Denture: Upper Heart: RRR Lungs: CTA Assessment and Plan Assessment Anesthesia Assessment: Anesthesia Plan Discussed Final Anesthetic Review Family History of Problems with Anesthesia: No History of Problems with Anesthesia: No NPO: Yes ASA Class: III Final Preanesthetic Review: Meds/Allgs Chart Reviewed, Consent Obtained/Reviewed and Anes Risks/Benef Reviewed Patient Risk: Intermediate Procedure Risk: Low Anesthetic Plan Anesthetic Plan: MAC: Disposition: Standard PACU
[2023-06-15 12:52] LABS: Glucose, Whole Blood 97 mg/dL (60-115)
--- NOTE | 2023-06-15 13:01 | PC.NURSE ---
Dr. Reis at bedside for consent.
--- NOTE | 2023-06-15 13:16 | PC.NURSE ---
Adonay. John Bledsoe ornamental metalwork designer at bedside for report.
--- NOTE | 2023-06-15 13:17 | HO.ANESPROP2 ---
FORMERLY [facility], LATER [facility] Active Problems Active Problems: All Active Problems GI bleed (Acute) Anemia (Acute) Chronic kidney disease (Acute) Anemia (Acute) Renal cancer (Acute) Right renal mass (Acute) Recurrent UTI (Acute) Hydronephrosis, left (Acute) Pyuria (Acute) Renal mass (Acute) Urinary incontinence without sensory awareness (Acute) Hydroureteronephrosis (Acute) Urinary retention with incomplete bladder emptying (Acute) Chronic UTI (urinary tract infection) (Acute) Frequency of micturition (Acute) HTN (hypertension) (Acute) Diabetes mellitus (Acute) High cholesterol (Acute) Urgency incontinence (Acute) Past Medical History Medical History CKD (chronic kidney disease) stage 4, GFR 15-29 ml/min CAD (coronary artery disease) History of myocardial infarction Type 2 diabetes mellitus with unspecified complications Paroxysmal atrial fibrillation Multiple falls Arthritis Limited mobility Chronic pain Anxiety and depression Asthma Urgency incontinence High cholesterol Lateral malleolar fracture HTN (hypertension) Functional capacity: wheelchair bound Patient : No Family History Family History Father No problems noted. Mother Diabetes High blood pressure Stomach cancer Family history of problems with anesthesia: No Surgical History Surgical History History of cystoscopy Hx of cholecystectomy History of cataract extraction History of heart artery stent Hx of colonoscopy H/O neck surgery History of Problems with Anesthesia: No Social History Social History Household Members: None Housing: Apartment Are you a primary career center advisor to a significant other at home: No Do you presently have visiting nurse or other home services: Yes Unable to assess alcohol history related to: Unable to respond and Unknown Alcohol intake: never Patient Tobacco Use Status: Former Tobacco user Quit Date: 2005 Tobacco use type: Cigarette Years Smoked: 30-40 Second Hand Smoke Exposure: No Use of substances other than those prescribed or required for medical reasons: No Substance Use Type: Crack/Cocaine Currently Displaying Signs/Symptoms of Drug Intoxication Withdrawal: No Have you been hit, kicked, punched, or otherwise hurt by someone within the past year? If so, by whom?: No Do you feel safe in your current relationship?: Yes Is there a partner from a previous relationship who is making you feel unsafe now?: No Are you made to feel afraid or neglected: No Are you DNR?: No Advance Directives: Yes Advance Directives Information Provided: Yes Advance Directives on File: No Advance Directives Date on File: 06/13/23 Do you have a plan to hurt others: No Plan Recently lost weight without trying: No Nutrition Risks: No Nutritional Risk Patient : No : No Poor oral hygiene: No service: No Current occupational status: disabled Meds Allergies Allergy/AdvReac Type Severity Reaction Status Date / Time atorvastatin [ATORVASTATIN] Allergy Intermediate SWELLING Verified 06/13/23 09:54 morphine [MORPHINE] Allergy Intermediate RASH Verified 06/13/23 09:54 zolpidem [From AMBIEN] AdvReac Intermediate SLEEP WALKS Verified 06/13/23 09:54 Active Medications: Current Medications Acetaminophen (Acetaminophen 325 Mg Tablet) 650 mg PO Q6H PRN PRN Reason: Pain, Mild (Pain Scale 1-3) Albuterol Sulfate (Albuterol Sulfate 90 Mcg 8 Gm Inhaler) 2 puff INHALE QID PRN PRN Reason: Respiratory Distress Albuterol/Ipratropium (Albuterol/Iprat 2.5/0.5mg 3 Ml Ampul.Neb) 3 ml INHALE RQ4H WHILE AWAKE [facility] Last Admin: 06/15/23 11:23 Dose: 3 ml Amlodipine Besylate (Amlodipine Besylate 5 Mg Tablet) 5 mg PO DAILY [facility]; Protocol Last Admin: 06/15/23 08:44 Dose: 5 mg Duloxetine HCl (Duloxetine Hcl 60 Mg Capsule.Dr) 60 mg PO DAILY [facility] Last Admin: 06/15/23 08:43 Dose: 60 mg Ezetimibe (Ezetimibe 10 Mg Tablet) 10 mg PO DAILY [facility] Last Admin: 06/15/23 08:43 Dose: 10 mg Fluticasone Propionate (Fluticasone Propionate 100 Mcg Blst.W.Dev) 1 puff INHALE RBID [facility] Last Admin: 06/15/23 07:57 Dose: 1 puff Glucose (Glucose Gel 15 Gm Gel..Gram.) 15 gm PO Q15M PRN; Protocol PRN Reason: per Hypoglycemia Standing Ord. Hydrochlorothiazide (Hydrochlorothiazide 25 Mg Tablet) 25 mg PO DAILY [facility] Last Admin: 06/15/23 08:43 Dose: 25 mg Dextrose (D10) 250 mls @ 750 mls/hr IV Q15M PRN; Protocol PRN Reason: per Hypoglycemia Standing Ord. Insulin Human Lispro (Insulin Lispro 100 Unit/Ml 3 Ml Vial) 0 unit SUBCUT QIDACHS [facility]; Protocol Last Admin: 06/15/23 11:20 Dose: Not Given Lisinopril (Lisinopril 20 Mg Tablet) 20 mg PO DAILY [facility] Last Admin: 06/14/23 08:17 Dose: 20 mg Metoprolol Tartrate (Metoprolol Tartrate 25 Mg Tablet) 25 mg PO BID [facility]; Protocol Last Admin: 06/15/23 08:43 Dose: 25 mg Montelukast Sodium (Montelukast Sodium 10 Mg Tablet) 10 mg PO BEDTIME [facility] Last Admin: 06/14/23 20:29 Dose: 10 mg Non-Formulary Medication (Rosuvastatin) 20 mg PO BEDTIME [facility] Ondansetron HCl (Ondansetron Hcl 4 Mg/2 Ml Vial) 4 mg IVPUSH Q8H PRN PRN Reason: Nausea and Vomiting Pantoprazole Sodium (Pantoprazole Sodium 40 Mg/10 Ml Vial) 40 mg IVPUSH BID@0630,1630 [facility] Last Admin: 06/15/23 05:40 Dose: 40 mg Quetiapine Fumarate (Quetiapine Fumarate 100 Mg Tablet) 150 mg PO BEDTIME [facility] Last Admin: 06/14/23 20:29 Dose: 150 mg Sodium Chloride (0.9 % Sodium Chloride Flush 3 Ml Syringe) 3 ml IVFLUSH QSHIFT [facility] Last Admin: 06/15/23 08:44 Dose: 3 ml Torsemide (Torsemide 20 Mg Tablet) 20 mg PO DAILY [facility]; Protocol Last Admin: 06/15/23 08:44 Dose: 20 mg Home Medications ?Medication ?Instructions ?Recorded ?Confirmed ?Last Taken ?Type lancing device with lancets kit #1 ea 03/24/21 03/23/23 Unknown History ([facility] [employer] Lancing Device kit) albuterol sulfate 90 mcg/actuation 2 puff inhalation QID PRN 11/30/21 06/13/23 Unknown History aerosol inhaler Respiratory Distress ferrous sulfate 325 mg (65 mg 325 mg PO DAILY 11/30/21 06/13/23 Unknown History iron) tablet insulin lispro 100 unit/mL See Protocol subcut TIDAC 06/09/22 06/13/23 Unknown History subcutaneous pen (Humalog KwikPen (U-100) Insulin) acetaminophen 650 mg 650 mg PO TID 06/13/23 06/13/23 Unknown History tablet,extended release amlodipine 5 mg tablet 5 mg PO DAILY 06/13/23 06/13/23 Unknown History diclofenac sodium 1 % topical gel 4 g topical QID PRN Pain (Scale 06/13/23 06/13/23 Unknown History Score 1-3) duloxetine 60 mg capsule,delayed 60 mg PO DAILY 06/13/23 06/13/23 Unknown History release ezetimibe 10 mg tablet 10 mg PO DAILY 06/13/23 06/13/23 Unknown History fluticasone furoate 100 1 inh inhalation DAILY 06/13/23 06/13/23 Unknown History mcg/actuation blister powder for inhalation (Arnuity Ellipta) insulin glargine 100 unit/mL (3 6 unit subcut BEDTIME 06/13/23 06/13/23 Unknown History mL) subcutaneous pen (Lantus Solostar U-100 Insulin) lisinopril 20 1 tab PO DAILY 06/13/23 06/13/23 Unknown History mg-hydrochlorothiazide 25 mg tablet metoprolol tartrate 25 mg tablet 25 mg PO BID 06/13/23 06/13/23 Unknown History montelukast 10 mg tablet 10 mg PO BEDTIME 06/13/23 06/13/23 Unknown History quetiapine 150 mg tablet 150 mg PO BEDTIME 06/13/23 06/13/23 Unknown History rosuvastatin 20 mg tablet 20 mg PO BEDTIME 06/13/23 06/13/23 Unknown History torsemide 10 mg tablet 20 mg PO DAILY 06/13/23 06/13/23 Unknown History Exam Height,Weight and Vital Signs: Height 5 ft 3 in Weight 107.7 kg Last Vital Signs Temp 97.9 F 06/15/23 11:46 Pulse 77 06/15/23 11:46 Resp 18 06/15/23 11:46 BP 97/63 06/15/23 11:46 Pulse Ox 97 06/15/23 11:46 O2 Del Method Room Air 06/15/23 11:46 Pertinent Lab Results Pertinent Lab Results: Laboratory Tests 06/13/23 06/13/23 06/13/23 11:13 11:53 16:20 WBC 8.1 RBC 2.19 L Hgb 6.6 L* Hct 21.6 L MCV 98.6 H MCH 30.1 MCHC 30.6 L RDW 12.8 Plt Count 259 MPV 10.0 Immature Gran % (Auto) 0.2 Neut % (Auto) 62.3 Lymph % (Auto) 25.7 [place] % (Auto) 8.7 Eos % (Auto) 2.6 Baso % (Auto) 0.5 Lymph # (Auto) 2.1 [place] # (Auto) 0.7 Eos # (Auto) 0.2 Baso # (Auto) 0.0 Abs Immat Gran (auto) 0.02 Absolute Neuts (auto) 5.0 Absolute Nucleated RBC 0.000 Nucleated RBC % (auto) 0.0 PT INR Sodium 143 Potassium 5.2 H Chloride 115 H Carbon Dioxide 19 L Anion Gap 14 BUN 50 H Creatinine 2.67 H Estim Creat Clear Calc 21.3 Estimated GFR 17 POC Glucose 103 Random Glucose 107 Calcium 8.1 L Magnesium Iron 23 L TIBC 208 L % Saturation 11 L Unsat Iron Binding 185 Ferritin 48 Stool Occult Blood POSITIVE Blood Type O Positive Antibody Screen NEGATIVE Crossmatch See Detail 06/13/23 06/13/23 06/14/23 19:14 21:18 05:46 WBC 8.5 RBC 2.93 L D Hgb 8.8 L D Hct 27.6 L D MCV 94.2 MCH 30.0 MCHC 31.9 RDW 16.5 H Plt Count 242 MPV 10.8 Immature Gran % (Auto) 0.2 Neut % (Auto) 65.7 Lymph % (Auto) 20.6 [place] % (Auto) 9.9 Eos % (Auto) 3.2 Baso % (Auto) 0.4 Lymph # (Auto) 1.8 [place] # (Auto) 0.8 Eos # (Auto) 0.3 Baso # (Auto) 0.0 Abs Immat Gran (auto) 0.02 Absolute Neuts (auto) 5.6 Absolute Nucleated RBC 0.000 Nucleated RBC % (auto) 0.0 PT INR Sodium 142 Potassium 5.7 H Chloride 115 H Carbon Dioxide 18 L Anion Gap 15 BUN 52 H Creatinine 3.05 H Estim Creat Clear Calc 18.7 Estimated GFR 15 POC Glucose 150 H 155 H Random Glucose 99 Calcium 8.8 D Magnesium 2.6 Iron TIBC % Saturation Unsat Iron Binding Ferritin Stool Occult Blood Blood Type Antibody Screen Crossmatch 06/14/23 06/14/23 06/14/23 07:21 11:29 16:28 WBC RBC Hgb Hct MCV MCH MCHC RDW Plt Count MPV Immature Gran % (Auto) Neut % (Auto) Lymph % (Auto) [place] % (Auto) Eos % (Auto) Baso % (Auto) Lymph # (Auto) [place] # (Auto) Eos # (Auto) Baso # (Auto) Abs Immat Gran (auto) Absolute Neuts (auto) Absolute Nucleated RBC Nucleated RBC % (auto) PT INR Sodium Potassium Chloride Carbon Dioxide Anion Gap BUN Creatinine Estim Creat Clear Calc Estimated GFR POC Glucose 93 133 H 101 Random Glucose Calcium Magnesium Iron TIBC % Saturation Unsat Iron Binding Ferritin Stool Occult Blood Blood Type Antibody Screen Crossmatch 06/14/23 06/15/23 06/15/23 20:34 06:43 06:44 WBC 7.6 RBC 2.81 L Hgb 8.3 L Hct 26.2 L MCV 93.2 MCH 29.5 MCHC 31.7 RDW 15.9 Plt Count 232 MPV 11.0 Immature Gran % (Auto) 0.4 Neut % (Auto) 67.7 Lymph % (Auto) 20.3 [place] % (Auto) 8.3 Eos % (Auto) 2.9 Baso % (Auto) 0.4 Lymph # (Auto) 1.5 [place] # (Auto) 0.6 Eos # (Auto) 0.2 Baso # (Auto) 0.0 Abs Immat Gran (auto) 0.03 Absolute Neuts (auto) 5.2 Absolute Nucleated RBC 0.000 Nucleated RBC % (auto) 0.0 PT 13.6 H INR 1.1 Sodium 142 Potassium 5.1 Chloride 113 H Carbon Dioxide 17 L Anion Gap 17 BUN 54 H Creatinine 3.14 H Estim Creat Clear Calc 18.2 Estimated GFR 14 POC Glucose 136 H Random Glucose 96 Calcium 8.1 L D Magnesium Iron TIBC % Saturation Unsat Iron Binding Ferritin Stool Occult Blood Blood Type Antibody Screen Crossmatch 06/15/23 06/15/23 06/15/23 07:10 11:17 12:48 WBC RBC Hgb Hct MCV MCH MCHC RDW Plt Count MPV Immature Gran % (Auto) Neut % (Auto) Lymph % (Auto) [place] % (Auto) Eos % (Auto) Baso % (Auto) Lymph # (Auto) [place] # (Auto) Eos # (Auto) Baso # (Auto) Abs Immat Gran (auto) Absolute Neuts (auto) Absolute Nucleated RBC Nucleated RBC % (auto) PT INR Sodium Potassium Chloride Carbon Dioxide Anion Gap BUN Creatinine Estim Creat Clear Calc Estimated GFR POC Glucose 91 96 97 Random Glucose Calcium Magnesium Iron TIBC % Saturation Unsat Iron Binding Ferritin Stool Occult Blood Blood Type Antibody Screen Crossmatch Airway Mallampati Class: IV TM Dist: >3cm Neck ROM: Full Partial: Upper Heart: RRR Lungs: CTA Assessment and Plan Assessment Anesthesia Assessment: Anesthesia Plan Discussed Final Anesthetic Review Family History of Problems with Anesthesia: No History of Problems with Anesthesia: No ASA Class: III Final Preanesthetic Review: Meds/Allgs Chart Reviewed, Consent Obtained/Reviewed and Anes Risks/Benef Reviewed Patient Risk: Intermediate Procedure Risk: Intermediate Anesthetic Plan Anesthetic Plan: MAC: Disposition: Standard PACU
--- NOTE | 2023-06-15 13:28 | HO.PM.IMPN ---
Subjective Subjective Date of Service: 06/15/23 Interval History: Seen and examined this morning Follow-up for anemia, plan for EGD today History obtained with the assistance of a boarding room fixer Denies abdominal pain, dizziness, shortness of breath at this time Review of Systems Review of Systems: Yes all other systems are reviewed and are negative Constitutional Constitutional: Denies chills and Denies fever(s) Physical Exam Vital Signs: Vital Signs: Last Vital Signs Temp 97.9 F 06/15/23 11:46 Pulse 77 06/15/23 11:46 Resp 18 06/15/23 11:46 BP 97/63 06/15/23 11:46 Pulse Ox 97 06/15/23 11:46 O2 Del Method Room Air 06/15/23 11:46 BMI result Body Mass Index 42.1 Const: General: comfortable, no acute distress, alert and awake Nutritional Appearance: obese Orientation/consciousness: patient oriented x3 Resp: Other: scattered wheeze Effort & Inspection: normal respiratory effort, able to speak in complete sentences, no respiratory distress and no use of accessory muscles Cardio: Rate: regular rate GI: Inspection: No distended Palpation (GI): Soft to palpation : Other: belcher in place Neuro: General: patient oriented x3 Extrem: General: Yes no pedal edema Objective Data Active Medications Acetaminophen (Acetaminophen 325 Mg Tablet) 650 mg PO Q6H PRN PRN Reason: Pain, Mild (Pain Scale 1-3) Albuterol Sulfate (Albuterol Sulfate 90 Mcg 8 Gm Inhaler) 2 puff INHALE QID PRN PRN Reason: Respiratory Distress Albuterol/Ipratropium (Albuterol/Iprat 2.5/0.5mg 3 Ml Ampul.Neb) 3 ml INHALE RQ4H WHILE AWAKE [facility] Last Admin: 06/15/23 11:23 Dose: 3 ml Documented By: VICTOR M Amlodipine Besylate (Amlodipine Besylate 5 Mg Tablet) 5 mg PO DAILY [facility]; Protocol Last Admin: 06/15/23 08:44 Dose: 5 mg Documented By: JEEVAN Duloxetine HCl (Duloxetine Hcl 60 Mg Capsule.) 60 mg PO DAILY [facility] Last Admin: 06/15/23 08:43 Dose: 60 mg Documented By: JEEVAN Ezetimibe (Ezetimibe 10 Mg Tablet) 10 mg PO DAILY [facility] Last Admin: 06/15/23 08:43 Dose: 10 mg Documented By: JEEVAN Fluticasone Propionate (Fluticasone Propionate 100 Mcg Blst.W.Dev) 1 puff INHALE RBID [facility] Last Admin: 06/15/23 07:57 Dose: 1 puff Documented By: VICTOR M Glucose (Glucose Gel 15 Gm Gel..Gram.) 15 gm PO Q15M PRN; Protocol PRN Reason: per Hypoglycemia Standing Ord. Hydrochlorothiazide (Hydrochlorothiazide 25 Mg Tablet) 25 mg PO DAILY [facility] Last Admin: 06/15/23 08:43 Dose: 25 mg Documented By: JEEVAN Dextrose (D10) 250 mls @ 750 mls/hr IV Q15M PRN; Protocol PRN Reason: per Hypoglycemia Standing Ord. Insulin Human Lispro (Insulin Lispro 100 Unit/Ml 3 Ml Vial) 0 unit SUBCUT QIDACHS [facility]; Protocol Last Admin: 06/15/23 11:20 Dose: Not Given Documented By: JEEVAN Non-Admin Reason: NPO Lisinopril (Lisinopril 20 Mg Tablet) 20 mg PO DAILY [facility] Last Admin: 06/14/23 08:17 Dose: 20 mg Documented By: JORDAN Metoprolol Tartrate (Metoprolol Tartrate 25 Mg Tablet) 25 mg PO BID [facility]; Protocol Last Admin: 06/15/23 08:43 Dose: 25 mg Documented By: JEEVAN Montelukast Sodium (Montelukast Sodium 10 Mg Tablet) 10 mg PO BEDTIME [facility] Last Admin: 06/14/23 20:29 Dose: 10 mg Documented By: DANIS Non-Formulary Medication (Rosuvastatin) 20 mg PO BEDTIME [facility] Ondansetron HCl (Ondansetron Hcl 4 Mg/2 Ml Vial) 4 mg IVPUSH Q8H PRN PRN Reason: Nausea and Vomiting Pantoprazole Sodium (Pantoprazole Sodium 40 Mg/10 Ml Vial) 40 mg IVPUSH BID@0630,1630 [facility] Last Admin: 06/15/23 05:40 Dose: 40 mg Documented By: DANIS Quetiapine Fumarate (Quetiapine Fumarate 100 Mg Tablet) 150 mg PO BEDTIME [facility] Last Admin: 06/14/23 20:29 Dose: 150 mg Documented By: DANIS Sodium Chloride (0.9 % Sodium Chloride Flush 3 Ml Syringe) 3 ml IVFLUSH QSHIFT [facility] Last Admin: 06/15/23 08:44 Dose: 3 ml Documented By: JEEVAN Torsemide (Torsemide 20 Mg Tablet) 20 mg PO DAILY [facility]; Protocol Last Admin: 06/15/23 08:44 Dose: 20 mg Documented By: JEEVAN Labs 06/15/23 06:43 06/15/23 06:44 Labs: Laboratory Results - last 24 hr 06/13/23 06/13/23 06/14/23 16:20 19:14 16:28 MCV MCH MCHC RDW Plt Count MPV Immature Gran % (Auto) Neut % (Auto) Lymph % (Auto) [place] % (Auto) Eos % (Auto) Baso % (Auto) Lymph # (Auto) [place] # (Auto) Eos # (Auto) Baso # (Auto) Abs Immat Gran (auto) Absolute Neuts (auto) Absolute Nucleated RBC Nucleated RBC % (auto) PT INR Anion Gap Estim Creat Clear Calc Estimated GFR POC Glucose 103 150 H 101 Random Glucose Calcium 06/14/23 06/15/23 06/15/23 20:34 06:43 06:44 MCV 93.2 MCH 29.5 MCHC 31.7 RDW 15.9 Plt Count 232 MPV 11.0 Immature Gran % (Auto) 0.4 Neut % (Auto) 67.7 Lymph % (Auto) 20.3 [place] % (Auto) 8.3 Eos % (Auto) 2.9 Baso % (Auto) 0.4 Lymph # (Auto) 1.5 [place] # (Auto) 0.6 Eos # (Auto) 0.2 Baso # (Auto) 0.0 Abs Immat Gran (auto) 0.03 Absolute Neuts (auto) 5.2 Absolute Nucleated RBC 0.000 Nucleated RBC % (auto) 0.0 PT 13.6 H INR 1.1 Anion Gap 17 Estim Creat Clear Calc 18.2 Estimated GFR 14 POC Glucose 136 H Random Glucose 96 Calcium 8.1 L D 06/15/23 06/15/23 06/15/23 07:10 11:17 12:48 MCV MCH MCHC RDW Plt Count MPV Immature Gran % (Auto) Neut % (Auto) Lymph % (Auto) [place] % (Auto) Eos % (Auto) Baso % (Auto) Lymph # (Auto) [place] # (Auto) Eos # (Auto) Baso # (Auto) Abs Immat Gran (auto) Absolute Neuts (auto) Absolute Nucleated RBC Nucleated RBC % (auto) PT INR Anion Gap Estim Creat Clear Calc Estimated GFR POC Glucose 91 96 97 Random Glucose Calcium Assessment and Plan (1) GI bleed: Status: Acute (2) Anemia: Status: Acute Plan 77 year old women admitted with anemia and GI bleed Acute blood loss anemia r/t GI bleed Hx of anemia and dark stools for 2 months HH 6.6/21.6 on admission. Transfused 2 units 4/30 H/H improved to 8.8/27.6% stool occult positive IV PPI Per GI, plan for EGD today Hyperkalemia Resolved with Lokelma hold lisinopril Renal cancer oncology consult was supposed to start palliative radiation tomorrow, follows with [facility] oncology CKD 4/metabolic acidosis creatinine trending up Hold torsemide, HCTZ, lisinopril Nephrology consult Obstructive uropathy with chronic Belcher Chronic left hydronephrosis and right renal mass Planned for elective left ureteral stent change but procedure was canceled due to anemia will change belcher Will need outpatient follow-up with Urology to reschedule stent change Asthma, unspecified mild wheezing, no sob, no hypoxia prn breathing treatments, will follow closely albuterol as needed Afib hold eliquis for anemia, GIB continue bb Hypertension stable BP Continue amlodipine, metoprolol Hold torsemide, HCTZ, lisinopril as above Diabetes mellitus 2 ss, ada diet Home dose of Lantus discontinued for now as patient NPO Mental health continue home medications Morbid obesity. BMI 42.1 Discussed importance of weight management as this may be contributing to worsening of other comorbidities DVT prophylaxis with SCD boots in light of anemia/GI bleed Full code d/w dr faye pt requires ongoing inpt stay due to acute blood loss anemia with suspected gi bleed requiring blood transfusion close monitoring of renal function/lytes, EGD and expert consultation Quality Stroke Does the patient have a stroke diagnosis?: No VTE Prior VTE?: No VTE Risk Level:: Medical - moderate - high VTE Device Contraindication: N/A - Device Ordered VTE Drug Contraindication: Treatment Not Indicated
--- NOTE | 2023-06-15 14:00 | PM.EVENT ---
Event Note Date of Service: 06/15/23 Event Note: EGD with biopsies-Full note dictated Findings: 1. Chronic antral gastritis-biopsied x 3 2. Mild duodenitis 3. Small hiatal hernia 4. 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 I will hold off on colonoscopy given the clinical history. Would hold Eliquis for another 1-2 weeks. ? complete her /Renal w/u while off the Eliquis? D/W her daughter Batool. Thanks Time Spent With Patient Time: Total time managing care of this patient today ____ minutes.
--- NOTE | 2023-06-15 14:05 | P.BOP_ITS ---
Brief Operative Note Date of Service: 06/15/23 Pre-op diagnosis: UGI Bleed Post-op diagnosis: other (Gastritis, Duodenitis, Descending duodenal lipoma) Procedure: EGD with biopsies Surgeon: Gamal Reis MD Anesthesia: MAC Was an Geophysical Support Specialist used for this Procedure?: No Estimated blood loss (mL): 2.0 Pathology: other (A. Gastric antrum) Condition: stable Disposition: PACU
[2023-06-15 16:10] LABS: Glucose, Whole Blood 150 mg/dL (60-115)
--- NOTE | 2023-06-15 16:20 | P.CONNP_ITS ---
History of Present Illness Reason for Consult Consult date: 06/15/23 Reason for consult: CKD Chief Complaint Chief complaint: anemia History of Present Illness Narrative: 77-year-old woman presented to the ER with anemia. Patient was scheduled for a elective left ureteral stent change, labs had been drawn and noted that the H&H had dropped significantly. She was brought to the ER for further management. She reports that over the last 2 months she has had dark stools and more recently she has had some mild shortness of breath and more lethargy. She reported that she was also taking iron so she was not sure if it was true bleeding or a result of taking the iron supplementation. She denied any chest pain, dizziness, nausea, vomiting, diarrhea, headaches, visual changes, loss of consciousness. h/o right renal mass and chronic left hydro Underwent EGD today s/p Transfusion Baseline creatinine is 2.5 to 2.8 mg/dL Now with LETHA BP was relatively low She was on ACEi and HCTZ prior to admission Review of Systems Review of Systems No weight loss No chest pain No nausea or vomiting No diarrhea No polyuria, oliguria No headache PMFSH Past Medical History Medical History CKD (chronic kidney disease) stage 4, GFR 15-29 ml/min CAD (coronary artery disease) History of myocardial infarction Type 2 diabetes mellitus with unspecified complications Paroxysmal atrial fibrillation Multiple falls Arthritis Limited mobility Chronic pain Anxiety and depression Asthma Urgency incontinence High cholesterol Lateral malleolar fracture HTN (hypertension) Family History Family History Father No problems noted. Mother Diabetes High blood pressure Stomach cancer Surgical History Surgical History History of cystoscopy Hx of cholecystectomy History of cataract extraction History of heart artery stent Hx of colonoscopy H/O neck surgery Social History Social History Household Members: None Housing: Apartment Are you a primary career development coordinator/teacher to a significant other at home: No Do you presently have visiting nurse or other home services: Yes Unable to assess alcohol history related to: Unable to respond and Unknown Alcohol intake: never Patient Tobacco Use Status: Former Tobacco user Quit Date: 2005 Tobacco use type: Cigarette Years Smoked: 30-40 Second Hand Smoke Exposure: No Use of substances other than those prescribed or required for medical reasons: No Substance Use Type: Crack/Cocaine Currently Displaying Signs/Symptoms of Drug Intoxication Withdrawal: No Have you been hit, kicked, punched, or otherwise hurt by someone within the past year? If so, by whom?: No Do you feel safe in your current relationship?: Yes Is there a partner from a previous relationship who is making you feel unsafe now?: No Are you made to feel afraid or neglected: No Are you DNR?: No Advance Directives: Yes Advance Directives Information Provided: Yes Advance Directives on File: No Advance Directives Date on File: 06/13/23 Do you have a plan to hurt others: No Plan Recently lost weight without trying: No Nutrition Risks: No Nutritional Risk Patient : No : No Poor oral hygiene: No service: No Current occupational status: disabled Meds Allergies Allergy/AdvReac Type Severity Reaction Status Date / Time atorvastatin [ATORVASTATIN] Allergy Intermediate SWELLING Verified 06/13/23 09:54 morphine [MORPHINE] Allergy Intermediate RASH Verified 06/13/23 09:54 zolpidem [From AMBIEN] AdvReac Intermediate SLEEP WALKS Verified 06/13/23 09:54 Active Medications: Current Medications Acetaminophen (Acetaminophen 325 Mg Tablet) 650 mg PO Q6H PRN PRN Reason: Pain, Mild (Pain Scale 1-3) Albuterol Sulfate (Albuterol Sulfate 90 Mcg 8 Gm Inhaler) 2 puff INHALE QID PRN PRN Reason: Respiratory Distress Albuterol/Ipratropium (Albuterol/Iprat 2.5/0.5mg 3 Ml Ampul.Neb) 3 ml INHALE RQ4H WHILE AWAKE [facility] Last Admin: 06/15/23 16:13 Dose: 3 ml Amlodipine Besylate (Amlodipine Besylate 5 Mg Tablet) 5 mg PO DAILY [facility]; Protocol Last Admin: 06/15/23 08:44 Dose: 5 mg Duloxetine HCl (Duloxetine Hcl 60 Mg Capsule.Dr) 60 mg PO DAILY [facility] Last Admin: 06/15/23 08:43 Dose: 60 mg Ezetimibe (Ezetimibe 10 Mg Tablet) 10 mg PO DAILY [facility] Last Admin: 06/15/23 08:43 Dose: 10 mg Fluticasone Propionate (Fluticasone Propionate 100 Mcg Blst.W.Dev) 1 puff INHALE RBID [facility] Last Admin: 06/15/23 07:57 Dose: 1 puff Glucose (Glucose Gel 15 Gm Gel..Gram.) 15 gm PO Q15M PRN; Protocol PRN Reason: per Hypoglycemia Standing Ord. Hydrochlorothiazide (Hydrochlorothiazide 25 Mg Tablet) 25 mg PO DAILY [facility] Last Admin: 06/15/23 08:43 Dose: 25 mg Dextrose (D10) 250 mls @ 750 mls/hr IV Q15M PRN; Protocol PRN Reason: per Hypoglycemia Standing Ord. Insulin Human Lispro (Insulin Lispro 100 Unit/Ml 3 Ml Vial) 0 unit SUBCUT QIDACHS [facility]; Protocol Last Admin: 06/15/23 16:20 Dose: Not Given Lisinopril (Lisinopril 20 Mg Tablet) 20 mg PO DAILY [facility] Last Admin: 06/14/23 08:17 Dose: 20 mg Metoprolol Tartrate (Metoprolol Tartrate 25 Mg Tablet) 25 mg PO BID [facility]; Protocol Last Admin: 06/15/23 08:43 Dose: 25 mg Montelukast Sodium (Montelukast Sodium 10 Mg Tablet) 10 mg PO BEDTIME [facility] Last Admin: 06/14/23 20:29 Dose: 10 mg Non-Formulary Medication (Rosuvastatin) 20 mg PO BEDTIME [facility] Omeprazole (Omeprazole 20 Mg Capsule.Dr) 20 mg PO DAILY@0630 [facility] Ondansetron HCl (Ondansetron Hcl 4 Mg/2 Ml Vial) 4 mg IVPUSH Q8H PRN PRN Reason: Nausea and Vomiting Quetiapine Fumarate (Quetiapine Fumarate 100 Mg Tablet) 150 mg PO BEDTIME [facility] Last Admin: 06/14/23 20:29 Dose: 150 mg Sodium Chloride (0.9 % Sodium Chloride Flush 3 Ml Syringe) 3 ml IVFLUSH QSHIFT [facility] Last Admin: 06/15/23 08:44 Dose: 3 ml Torsemide (Torsemide 20 Mg Tablet) 20 mg PO DAILY [facility]; Protocol Last Admin: 06/15/23 08:44 Dose: 20 mg Home Medications ?Medication ?Instructions ?Recorded ?Confirmed ?Last Taken ?Type lancing device with lancets kit #1 ea 03/24/21 03/23/23 Unknown History (VisiQuate Lancing Device kit) albuterol sulfate 90 mcg/actuation 2 puff inhalation QID PRN 11/30/21 06/13/23 Unknown History aerosol inhaler Respiratory Distress ferrous sulfate 325 mg (65 mg 325 mg PO DAILY 11/30/21 06/13/23 Unknown History iron) tablet insulin lispro 100 unit/mL See Protocol subcut TIDAC 06/09/22 06/13/23 Unknown History subcutaneous pen (Humalog KwikPen (U-100) Insulin) acetaminophen 650 mg 650 mg PO TID 06/13/23 06/13/23 Unknown History tablet,extended release amlodipine 5 mg tablet 5 mg PO DAILY 06/13/23 06/13/23 Unknown History diclofenac sodium 1 % topical gel 4 g topical QID PRN Pain (Scale 06/13/23 06/13/23 Unknown History Score 1-3) duloxetine 60 mg capsule,delayed 60 mg PO DAILY 06/13/23 06/13/23 Unknown History release ezetimibe 10 mg tablet 10 mg PO DAILY 06/13/23 06/13/23 Unknown History fluticasone furoate 100 1 inh inhalation DAILY 06/13/23 06/13/23 Unknown History mcg/actuation blister powder for inhalation (Arnuity Ellipta) insulin glargine 100 unit/mL (3 6 unit subcut BEDTIME 06/13/23 06/13/23 Unknown History mL) subcutaneous pen (Lantus Solostar U-100 Insulin) lisinopril 20 1 tab PO DAILY 06/13/23 06/13/23 Unknown History mg-hydrochlorothiazide 25 mg tablet metoprolol tartrate 25 mg tablet 25 mg PO BID 06/13/23 06/13/23 Unknown History montelukast 10 mg tablet 10 mg PO BEDTIME 06/13/23 06/13/23 Unknown History quetiapine 150 mg tablet 150 mg PO BEDTIME 06/13/23 06/13/23 Unknown History rosuvastatin 20 mg tablet 20 mg PO BEDTIME 06/13/23 06/13/23 Unknown History torsemide 10 mg tablet 20 mg PO DAILY 06/13/23 06/13/23 Unknown History Physical Exam Vital Signs: Last Vital Signs Temp 97.1 F 06/15/23 15:19 Pulse 82 06/15/23 16:14 Resp 18 06/15/23 16:14 BP 110/64 06/15/23 15:19 Pulse Ox 94 06/15/23 15:19 O2 Del Method Room Air 06/15/23 15:19 BMI result Body Mass Index 42.1 Const General: ill appearing Neck Neck: Yes supple Resp Auscultation: rhonchi Cardio Palpation: no palpable S3 Heart sounds: no rubs GI Palpation (GI): Soft to palpation Auscultation: normal bowel sounds Neuro Motor exam (neuro): no asterixis Results Lab Results 06/15/23 06:43 06/15/23 06:44 Lab results: Chemistry 06/13/23 06/14/23 06/15/23 11:53 05:46 06:44 Sodium 143 142 142 Potassium 5.2 H 5.7 H 5.1 Carbon Dioxide 19 L 18 L 17 L BUN 50 H 52 H 54 H Creatinine 2.67 H 3.05 H 3.14 H Calcium 8.1 L 8.8 D 8.1 L D Hematology 06/13/23 06/14/23 06/15/23 11:53 05:46 06:43 WBC 8.1 8.5 7.6 Hgb 6.6 L* 8.8 L D 8.3 L Plt Count 259 242 232 Assessment and Plan (1) Chronic kidney disease: Status: Acute (2) Anemia: Status: Acute Plan 77 yr old woman with Chronic left hydronephrosis ,requiring stent change, right renal mass admitted with anemia- GI bleed Superimposed LETHA due to hypoperfusion in a setting of GL bleed /hypotension Also has Hyperchloremic metabolic acidosis s/o hyperkalemia Suggest Hold ACEi and HCTZ until LETHA resolves Hold Amlodipine due to low BP Cautious hydration - D5w with 3 amp NaHCO3 at 50 cc/hr tp correct acidosis : This should correct hyperkalemia No indication for dialysis Expect renal recovery Await left stent change per Procedures Date of Service Date of Service: 06/15/23
[2023-06-15] MEDS: Omeprazole 20 MG CAPSULE.DR PO (16:38)
--- NOTE | 2023-06-15 16:52 | OP_ITS ---
DATE OF SERVICE: 06/15/2023 SURGEON: Gamal Reis MD INDICATIONS: Patient presents for evaluation of presumed upper GI bleeding. Full consent has been obtained from her for this, including risks of bleeding and perforation. PREOPERATIVE DIAGNOSIS: Upper gastrointestinal bleeding. POSTOPERATIVE DIAGNOSIS: PROCEDURE PERFORMED: Esophagogastroduodenoscopy with biopsies. ESTIMATED BLOOD LOSS: COMPLICATIONS: ANESTHESIA: Monitored anesthesia care. ASSISTANTS: SPECIMENS: POSTOPERATIVE DIAGNOSES: Upper gastrointestinal bleeding, mild duodenitis, chronic gastritis, hiatal hernia, descending duodenum lipoma. DESCRIPTION OF PROCEDURE: The patient was placed in the left lateral decubitus position. The Olympus video gastroscope was passed in the posterior oropharynx and upper esophagus under direct vision. The scope was passed slowly into the distal esophagus. The gastroesophageal junction appeared normal at 36 cm. There was no sign of any esophagitis nor [place] mucosa. There was a small hiatal hernia. The scope was advanced to the pylorus and the duodenum was cannulated to the descending portion. There was some mild duodenitis in the duodenal bulb with some erythema, but no erosions or ulceration. In the descending duodenum, was a fairly large over 1.5 cm polypoid lesion, which was quite consistent with a lipoma. This appeared to be on a short stalk. The mucosa was quite normal without any sign of ulceration or bleeding. It was quite soft when probed with a biopsy forceps consistent with a lipoma. Biopsies were not obtained. It was not obstructing the lumen. The duodenum beyond this appeared normal. The scope was withdrawn back into the stomach. The gastric antrum and body had some changes of chronic gastritis with some erythema, edema, and minimal friability. There was no erosions or ulceration. There was good peristalsis. Biopsies were obtained from the antrum. The scope was retroflexed visualizing the proximal stomach carefully, which appeared normal, without any sign of mass or ulceration. The scope was straightened and withdrawn back to the esophagus. The esophageal mucosa did have some appearance of possible esophageal dissecans, but most of this washed off with irrigation. There was no sign of any Jennifer nor other mucosal abnormality. The scope was withdrawn from the patient. She tolerated the procedure well and was returned to the recovery area in stable condition. IMPRESSION: 1. Chronic gastritis. 2. Mild duodenitis. 3. Descending duodenal lipoma. 4. Hiatal hernia. PLAN: The results of the biopsy will be checked. These findings may still have contributed to her chronic blood loss while on her Eliquis. She will continue on her PPI. She should avoid all aspirin and NSAIDs. I would hold her Eliquis for at least a week or 2. Given her previous history of attempted multiple colonoscopies with poor preps, including 1 in 2021, I would hold off on repeating that given her overall condition at the present time. She clearly has other pressing issues with the renal mass and some renal insufficiency at the present time, as well as her other comorbidities. This has been discussed with her daughter, Batool.. MD MICAELA Ferguson/HERIBERTO / [id number] MTDD
[2023-06-15] MEDS: Montelukast Sodium 10 MG TABLET PO (20:40)
[2023-06-15 20:58] LABS: Glucose, Whole Blood 146 mg/dL (60-115)
[2023-06-15] MEDS: QUEtiapine Fumarate 100 MG TABLET 150 MG PO (22:14)
[2023-06-15] MEDS: Simethicone 80 MG TAB.CHEW 160 MG PO (23:21)
[2023-06-16] VITALS (9 sets, daily range): BP systolic 105–131; BP diastolic 55–72; PULSE 57–83; RESP 16–20; TEMP 36.3–37; O2SAT 95–99
[2023-06-16] MEDS: Omeprazole 20 MG CAPSULE.DR PO (06:04)
[2023-06-16 06:49] LABS: Hematocrit 30.1 % (37.0-47.0); Hemoglobin 9.5 g/dl (12.0-16.0); Mean Corpuscular HGB Conc 31.6 g/dl (31.0-35.0); Mean Platelet Volume 10.6 fL (9.4-12.3); Platelet Count 231 X10*3/uL (160-400); Red Blood Count 3.17 X10*6/uL (4.20-5.50); Red Cell Distribution Width 14.9 % (11.0-16.0); White Blood Count 10.7 X10*3/uL (4.8-10.8)
[2023-06-16 07:07] LABS: Anion Gap 17 (12-20); Blood Urea Nitrogen 54 mg/dL (9-16); Calcium 8.4 mg/dL (8.4-10.2); Carbon Dioxide 18 mmol/L (22-29); Chloride 110 mmol/L (96-108); Creatinine Clr Calc Pharmacy 18.5; Estimated Glomerular Filt Rate 15; Glucose Random 136 mg/dL (60-115); Potassium 5.3 mmol/L (3.3-5.1); Sodium 140 mmol/L (135-145)
[2023-06-16 07:28] LABS: Estimated Average Glucose 108 mg/dL; Hemoglobin A1c % 5.4 % (<6.0)
[2023-06-16 07:53] LABS: Glucose, Whole Blood 141 mg/dL (60-115)
[2023-06-16] MEDS: Albuterol/Iprat 2.5/0.5MG 3 ML AMPUL.NEB INHALE ×3 (08:28→15:45)
[2023-06-16] MEDS: Fluticasone Propionate 100 MCG BLST.W.DEV 1 PUFF INHALE (08:29)
[2023-06-16] MEDS: Sodium Bicarbonate 8.4% 150 MEQ in Dextrose 5 % 850 ML 50 MEQ IV (09:11)
[2023-06-16] MEDS: 0.9 % Sodium Chloride Flush 3 ML SYRINGE IVFLUSH ×2 (09:16)
[2023-06-16] MEDS: DULoxetine HCl 60 MG CAPSULE.DR PO (09:17)
[2023-06-16] MEDS: Metoprolol Tartrate 25 MG TABLET PO (09:17)
[2023-06-16] MEDS: Ezetimibe 10 MG TABLET PO (09:17)
[2023-06-16] MEDS: polyethylene glycoL 3350 17 GM POWD.PACK PO (09:21)
--- NOTE | 2023-06-16 09:41 | HO.POSTANES ---
Post Anesthesia Evaluation Post Anesthesia Evaluation Date of Service: 06/15/23 Vital Signs: Vital Signs Temp Pulse Resp BP Pulse Ox O2 Del Method 06/16/23 08:29 57 19 06/16/23 07:33 97.4 F 64 19 122/55 L 99 Room Air 06/16/23 03:39 98.6 F 83 20 117/72 98 Room Air 06/15/23 23:24 98.3 F 74 18 104/56 L 99 Room Air Anesthesia: Monitored Mental Status: Awake Pain Control: Satisfactory Nausea/Vomiting: None Hydration: Adequate Anesthesia-Related Issues: No Anes. Related Issues
[2023-06-16 12:05] LABS: Glucose, Whole Blood 129 mg/dL (60-115)
--- NOTE | 2023-06-16 15:39 | HO.PM.IMPN ---
Subjective Subjective Date of Service: 06/16/23 Interval History: And seen and examined this morning Follow-up for anemia, LETHA History obtained with the assistance of a developmental education instructor Feeling well although reports constipation Review of Systems Review of Systems: Yes all other systems are reviewed and are negative Constitutional Constitutional: Denies chills and Denies fever(s) ENT Ears, Nose, Mouth, and Throat: Denies dizziness Cardiovascular Cardiovascular: Denies chest pain and Denies dyspnea Respiratory Respiratory: Denies dyspnea Gastrointestinal Gastrointestinal: Denies abdominal pain Neurologic Neurologic: Denies dizziness Physical Exam Vital Signs: Vital Signs: Last Vital Signs Temp 97.4 F 06/16/23 15:25 Pulse 80 06/16/23 15:25 Resp 18 06/16/23 15:25 BP 105/60 06/16/23 15:25 Pulse Ox 99 06/16/23 15:25 O2 Del Method Room Air 06/16/23 15:25 BMI result Body Mass Index 42.1 Const: General: comfortable, no acute distress, alert and awake Nutritional Appearance: obese Orientation/consciousness: patient oriented x3 Resp: Effort & Inspection: normal respiratory effort, able to speak in complete sentences, no respiratory distress and no use of accessory muscles Cardio: Rate: regular rate GI: Inspection: No distended Palpation (GI): Soft to palpation : Other: belcher in place Neuro: General: patient oriented x3 Extrem: General: Yes no pedal edema Objective Data Active Medications Acetaminophen (Acetaminophen 325 Mg Tablet) 650 mg PO Q6H PRN PRN Reason: Pain, Mild (Pain Scale 1-3) Albuterol Sulfate (Albuterol Sulfate 90 Mcg 8 Gm Inhaler) 2 puff INHALE QID PRN PRN Reason: Respiratory Distress Albuterol/Ipratropium (Albuterol/Iprat 2.5/0.5mg 3 Ml Ampul.Neb) 3 ml INHALE RQ4H WHILE AWAKE [facility] Last Admin: 06/16/23 12:17 Dose: 3 ml Documented By: CAROLYN Amlodipine Besylate (Amlodipine Besylate 5 Mg Tablet) 5 mg PO DAILY [facility]; Protocol Last Admin: 06/15/23 08:44 Dose: 5 mg Documented By: JEEVAN Duloxetine HCl (Duloxetine Hcl 60 Mg Capsule.Dr) 60 mg PO DAILY [facility] Last Admin: 06/16/23 09:17 Dose: 60 mg Documented By: JEEVAN Ezetimibe (Ezetimibe 10 Mg Tablet) 10 mg PO DAILY [facility] Last Admin: 06/16/23 09:17 Dose: 10 mg Documented By: JEEVAN Fluticasone Propionate (Fluticasone Propionate 100 Mcg Blst.W.Dev) 1 puff INHALE RBID [facility] Last Admin: 06/16/23 08:29 Dose: 1 puff Documented By: CAROLYN Glucose (Glucose Gel 15 Gm Gel..Gram.) 15 gm PO Q15M PRN; Protocol PRN Reason: per Hypoglycemia Standing Ord. Hydrochlorothiazide (Hydrochlorothiazide 25 Mg Tablet) 25 mg PO DAILY [facility] Last Admin: 06/15/23 08:43 Dose: 25 mg Documented By: JEEVAN Dextrose (D10) 250 mls @ 750 mls/hr IV Q15M PRN; Protocol PRN Reason: per Hypoglycemia Standing Ord. Sodium Bicarbonate 150 meq/ (Dextrose) 1,000 mls @ 50 mls/hr IV .Q20H [facility] Stop: 06/17/23 04:14 Last Admin: 06/16/23 09:11 Dose: 50 mls/hr Documented By: JEEVAN Insulin Human Lispro (Insulin Lispro 100 Unit/Ml 3 Ml Vial) 0 unit SUBCUT QIDACHS [facility]; Protocol Last Admin: 06/16/23 12:21 Dose: Not Given Documented By: JEEVAN Non-Admin Reason: No Insulin Coverage Lisinopril (Lisinopril 20 Mg Tablet) 20 mg PO DAILY [facility] Last Admin: 06/14/23 08:17 Dose: 20 mg Documented By: JORDAN Metoprolol Tartrate (Metoprolol Tartrate 25 Mg Tablet) 25 mg PO BID [facility]; Protocol Last Admin: 06/16/23 09:17 Dose: 25 mg Documented By: JEEVAN Montelukast Sodium (Montelukast Sodium 10 Mg Tablet) 10 mg PO BEDTIME [facility] Last Admin: 06/15/23 20:40 Dose: 10 mg Documented By: DANIS Non-Formulary Medication (Rosuvastatin) 20 mg PO BEDTIME [facility] Omeprazole (Omeprazole 20 Mg Capsule.) 20 mg PO DAILY@0630 [facility] Last Admin: 06/16/23 06:04 Dose: 20 mg Documented By: DANIS Ondansetron HCl (Ondansetron Hcl 4 Mg/2 Ml Vial) 4 mg IVPUSH Q8H PRN PRN Reason: Nausea and Vomiting Polyethylene Glycol (Polyethylene Glycol 3350 17 Gm Powd.Pack) 17 gm PO DAILY PRN PRN Reason: Constipation Last Admin: 06/16/23 09:21 Dose: 17 gm Documented By: JEEVAN Quetiapine Fumarate (Quetiapine Fumarate 100 Mg Tablet) 150 mg PO BEDTIME [facility] Last Admin: 06/15/23 22:14 Dose: 150 mg Documented By: DANIS Sodium Chloride (0.9 % Sodium Chloride Flush 3 Ml Syringe) 3 ml IVFLUSH QSHIFT [facility] Last Admin: 06/16/23 09:16 Dose: 3 ml Documented By: JEEVAN Torsemide (Torsemide 20 Mg Tablet) 20 mg PO DAILY [facility]; Protocol Last Admin: 06/15/23 08:44 Dose: 20 mg Documented By: JEEVAN Labs 06/16/23 06:36 06/16/23 06:36 Labs: Laboratory Results - last 24 hr 06/15/23 06/15/23 06/16/23 15:55 20:49 06:36 MCV 95.0 MCH 30.0 MCHC 31.6 RDW 14.9 Plt Count 231 MPV 10.6 Absolute Nucleated RBC 0.000 Nucleated RBC % (auto) 0.0 Anion Gap 17 Estim Creat Clear Calc 18.5 Estimated GFR 15 POC Glucose 150 H 146 H Random Glucose 136 H Estimat Average Glucose 108 Hemoglobin A1c % 5.4 Calcium 8.4 06/16/23 06/16/23 07:31 11:49 MCV MCH MCHC RDW Plt Count MPV Absolute Nucleated RBC Nucleated RBC % (auto) Anion Gap Estim Creat Clear Calc Estimated GFR POC Glucose 141 H 129 H Random Glucose Estimat Average Glucose Hemoglobin A1c % Calcium Assessment and Plan (1) GI bleed: Status: Acute (2) Anemia: Status: Chronic (3) Chronic kidney disease: Status: Acute Plan 77 year old women admitted with anemia and GI bleed Acute blood loss anemia r/t GI bleed Hx of anemia and dark stools for 2 months. heme occult positive HH 6.6/21.6 on admission. Transfused 2 units 4/30 H/H improved and stable s/p IV PPI, now on po PPI sen by GI, s/p EGD 06/14 -with chronic gastritis, mild duodenitis. Recommend to hold Eliquis for 1-2 weeks. Avoid NSAIDs Hyperkalemia s/p Lokelma hold lisinopril Renal cancer oncology consult was supposed to start palliative radiation tomorrow, [place] [facility] [place] follow up mild LETHA on CKD 4/metabolic acidosis creatinine trending up Hold torsemide, HCTZ, lisinopril Nephrology following IVF with bicarb Obstructive uropathy with chronic Belcher Chronic left hydronephrosis and right renal mass Planned for elective left ureteral stent change but procedure was canceled due to anemia belcher changed 06/14 Will need outpatient follow-up with Urology to reschedule stent change Asthma, unspecified no acute exacerbation prn breathing treatments, will follow closely albuterol as needed Afib hold eliquis for anemia, GIB continue bb Hypertension bp soft Continue amlodipine, metoprolol Hold torsemide, HCTZ, lisinopril as above Diabetes mellitus 2 ss, ada diet on Lantus 6U at baseline, currently blood sugar controlled Mental health continue home medications Morbid obesity. BMI 42.1 Discussed importance of weight management as this may be contributing to worsening of other comorbidities DVT prophylaxis with SCD boots in light of anemia/GI bleed Full code d/w dr faye pt requires ongoing inpt stay due to acute blood loss anemia with suspected gi bleed requiring blood transfusion close monitoring of renal function/lytes, EGD and expert consultation Quality Stroke Does the patient have a stroke diagnosis?: No VTE Prior VTE?: No VTE Risk Level:: Medical - moderate - high VTE Device Contraindication: N/A - Device Ordered VTE Drug Contraindication: Treatment Not Indicated
--- NOTE | 2023-06-16 15:46 | P.CDIM_ITS ---
PROVIDER RESPONSE TEXT: To clarify, the appropriate diagnosis supported by the clinical indicators: Acute QUERY TEXT: PHYSICIAN'S DOCUMENTATION REQUEST Date of Query: 06/16/2023 07:24 AM EDT Patient Name: Shweta Woodard Admit Date: 06/13/2023 Dear Denisha Lee, A review of the medical record indicates additional documentation may be needed. Please review below and update the documentation accordingly. Clinical Indicators: Progress note dated 06/14 - Plan: CKD 4/metabolic acidosis creatinine trending up Clarify which of the following accurately represents the acuity of the metabolic acidosis: Acute Acute on chronic Other (explain) Clinically unable to determine (explain) Thank you, Ting Kennedy, CCS, CDIS Use of terms such as suspected, likely, concern for, or probable (associated with a specific diagnosi s that is being evaluated, monitored, or treated as if it exists) are acceptable and can be coded in the inpatient se tting, when documented at the time of discharge. Please use your independent medical judgment in providing your response. THIS QUERY IS PART OF THE PERMANENT MEDICAL RECORD
[2023-06-16 16:11] LABS: Glucose, Whole Blood 152 mg/dL (60-115)
[2023-06-16] MEDS: Insulin Lispro 100 UNIT/ML 3 ML VIAL SUBCUT (16:26)
[2023-06-16] MEDS: ondansetron HCL 4 MG/2 ML VIAL IVPUSH (16:27)
--- NOTE | 2023-06-16 19:23 | PM.PNNEP ---
Subjective Subjective Date of Service: 06/16/23 Interval history: seen and examined this morning ; Events noted. All recent data reviewed Physical Exam Vital Signs: Vital Signs: Last Vital Signs Temp 97.4 F 06/16/23 15:25 Pulse 72 06/16/23 15:46 Resp 18 06/16/23 15:46 BP 105/60 06/16/23 15:25 Pulse Ox 99 06/16/23 15:25 O2 Del Method Room Air 06/16/23 15:25 BMI result Body Mass Index 42.1 Const: General: comfortable and no acute distress Orientation/consciousness: patient oriented x3 HEENT: Head: Yes normocephalic Mouth: Normal oral and palatal mucosa present Eyes: EOM: EOMs intact bilaterally Neck: Neck: Yes supple Resp: Auscultation: clear to auscultation bilaterally Cardio: Jugular venous distension: no JVD Rate: regular rate GI: Palpation (GI): Soft to palpation Auscultation: normal bowel sounds : General: Yes no CVA tenderness Back/Spine/Pelvis: Back: no CVA tenderness Skin: General skin exam: no rashes or lesions noted Neuro: General: patient oriented x3 and moves all extremities Objective Data Labs 06/16/23 06:36 06/16/23 06:36 Labs: Laboratory Results - last 24 hr 06/15/23 06/16/23 06/16/23 20:49 06:36 07:31 WBC 10.7 RBC 3.17 L Hgb 9.5 L Hct 30.1 L MCV 95.0 MCH 30.0 MCHC 31.6 RDW 14.9 Plt Count 231 MPV 10.6 Absolute Nucleated RBC 0.000 Nucleated RBC % (auto) 0.0 Sodium 140 Potassium 5.3 H Chloride 110 H Carbon Dioxide 18 L Anion Gap 17 BUN 54 H Creatinine 3.08 H Estim Creat Clear Calc 18.5 Estimated GFR 15 POC Glucose 146 H 141 H Random Glucose 136 H Estimat Average Glucose 108 Hemoglobin A1c % 5.4 Calcium 8.4 06/16/23 06/16/23 11:49 16:08 WBC RBC Hgb Hct MCV MCH MCHC RDW Plt Count MPV Absolute Nucleated RBC Nucleated RBC % (auto) Sodium Potassium Chloride Carbon Dioxide Anion Gap BUN Creatinine Estim Creat Clear Calc Estimated GFR POC Glucose 129 H 152 H Random Glucose Estimat Average Glucose Hemoglobin A1c % Calcium Procedures Date of Service Date of Service: 06/16/23 Assessment & Plan Assessment and plan (1) Acute kidney injury superimposed on CKD: Status: Resolved Plan 77 yr old woman with Chronic left hydronephrosis ,requiring stent change, right renal mass admitted with anemia- GI bleed Has Superimposed LETHA due to reduced renal perfusion in a setting of GI bleed /hypotension ACEi and HCTZ has been on hold Renal functions improved and stable No indication for dialysis Expect renal recovery with time Await left stent change- likely out pt Needs to F/U with [facility] after D/C Progress Note: Quality Stroke Does the patient have a stroke diagnosis?: No
[2023-06-16 21:01] LABS: Glucose, Whole Blood 148 mg/dL (60-115)
[2023-06-16] MEDS: QUEtiapine Fumarate 100 MG TABLET 150 MG PO (21:34)
[2023-06-16] MEDS: Montelukast Sodium 10 MG TABLET PO (21:35)
[2023-06-17] VITALS: BP 99/68; PULSE 68; RESP 19; TEMP 36.7; O2SAT 99
[2023-06-17 00:32] VITALS: BP 96/68
[2023-06-17 04:00] VITALS: PULSE 73; RESP 19; TEMP 36.3
[2023-06-17 07:23] LABS: Glucose, Whole Blood 106 mg/dL (60-115)
[2023-06-17 07:35] LABS: Anion Gap 17 (12-20); Blood Urea Nitrogen 62 mg/dL (9-16); Calcium 7.9 mg/dL (8.4-10.2); Carbon Dioxide 23 mmol/L (22-29); Chloride 107 mmol/L (96-108); Creatinine Clr Calc Pharmacy 17.7; Estimated Glomerular Filt Rate 14; Glucose Random 106 mg/dL (60-115); Potassium 5.1 mmol/L (3.3-5.1); Sodium 142 mmol/L (135-145)
[2023-06-17 07:41] VITALS: BP 104/64; PULSE 68; RESP 18; TEMP 36.8; O2SAT 99
[2023-06-17] MEDS: Albuterol/Iprat 2.5/0.5MG 3 ML AMPUL.NEB INHALE ×2 (07:57→11:33)
[2023-06-17 07:58] VITALS: PULSE 74; RESP 18; O2SAT 98
[2023-06-17] MEDS: Fluticasone Propionate 100 MCG BLST.W.DEV 1 PUFF INHALE (07:58)
[2023-06-17] MEDS: Ezetimibe 10 MG TABLET PO (08:31)
[2023-06-17] MEDS: 0.9 % Sodium Chloride Flush 3 ML SYRINGE IVFLUSH (08:31)
[2023-06-17] MEDS: Metoprolol Tartrate 25 MG TABLET PO (08:31)
[2023-06-17] MEDS: DULoxetine HCl 60 MG CAPSULE.DR PO (08:31)
--- NOTE | 2023-06-17 11:04 | P.DS_ITS ---
DS: Providers Provider Date of Service: 06/17/23 Date of admission: 06/13/23 14:49 Date of discharge: 06/17/23 Primary care physician: Janet Phelan MD Consults: 06/13/23 16:17 Consult to Gastroenterology Routine Consulting Provider: Gamal Reis Reason for consultation: gi bleed, anemia 06/14/23 07:47 Consult to Hematology / Oncology Routine Consulting Provider: Mica oHang Reason for consultation: renal cancer, anemia 06/15/23 13:27 Consult to Nephrology Routine Consulting Provider: [facility] Reason for consultation: letha on ckd Has provider been notified: No DS: Diagnosis Discharge Diagnosis (1) Acute kidney injury superimposed on CKD: Status: Resolved (2) GI bleed: Status: Acute (3) Anemia: Status: Chronic (4) Renal cancer: Status: Acute (5) Hydronephrosis, left: Status: Acute DS: Summary Hospital Course Hospital Course: From H&P on the day of admission 77-year-old woman presented to the ER with anemia. Patient was scheduled for a ureteral stent today, labs had been drawn and noted that the H&H had dropped significantly. She was brought to the ER for further management. She reports that over the last 2 months she has had dark stools and more recently she has had some mild shortness of breath and more lethargy. She reported that she was also taking iron so she was not sure if it was true bleeding or a result of taking the iron supplementation. She denied any chest pain, dizziness, nausea, vomiting, diarrhea, headaches, visual changes, loss of consciousness. In the ER, hemoglobin noted to be 6.6/21.3, potassium 5.3, creatinine 2.89, stable vital signs. 2 units of packed red blood cells was ordered, she was given a dose of Lokelma and 2 L of IV fluids. She will be admitted for further management and treatment of acute blood loss anemia. Acute blood loss anemia r/t GI bleed Hx of anemia and dark stools for 2 months. heme occult positive. HH 6.6/21.6 on admission. Transfused 2 units 06/12 with improvement in H/H. H/H has remained st able. seen by GI and underwent EGD 06/14 found to have chronic gastritis, mild duodenitis. GI Recommends to hold Eliquis for 1-2 weeks. Avoid NSAIDs Hyperkalemia s/p Lokelma, lisinopril placed on hold. Hyperkalemia resolved. Renal cancer. Continue outpatient follow-up mild LETHA on CKD 4/metabolic acidosis creatinine trending up Hold torsemide, HCTZ, lisinopril. Seen by Nephrology, metabolic acidosis resolved with sodium bicarb. Creatinine remains slightly above baseline, okay for discharge per Nephrology with plan for close outpatient follow-up next week. We will continue to hold torsemide, hydrochlorothiazide, lisinopril upon discharge. Obstructive uropathy with chronic Belcher Chronic left hydronephrosis and right renal mass. Planned for elective left ureteral stent change but procedure was canceled due to anemia. belcher changed 06/14. Will need outpatient follow-up with Urology to reschedule stent change, does not need to be done during inpatient hospitalization per Urology. Afib Eliquis placed on hold due to anemia, hold for 1-2 weeks due to above gastritis/duodenitis per GI. Continued on beta lanette Hypertension bp soft . Continue amlodipine, metoprolol. Hold torsemide, HCTZ, lisinopril as above. Time Attestation Discharge Coordination Time (in mins): 36 Quality: Safe Use of Opioids Does Pt have an Active Cancer Diagnosis on the Problem List?: No Quality: Stroke Does the patient have a stroke diagnosis?: No Physical Exam Vital Signs: Vital Signs: Last Vital Signs Temp 98.3 F 06/17/23 07:41 Pulse 74 06/17/23 07:58 Resp 18 06/17/23 07:58 BP 104/64 06/17/23 07:41 Pulse Ox 99 06/17/23 07:41 O2 Del Method Room Air 06/17/23 07:41 O2 Flow Rate 98 06/17/23 04:00 BMI result Body Mass Index 42.1 Const: General: comfortable, no acute distress, alert and awake Nutritional Appearance: obese Orientation/consciousness: patient oriented x3 Resp: Effort & Inspection: normal respiratory effort, able to speak in complete sentences, no respiratory distress and no use of accessory muscles Auscultation: clear to auscultation bilaterally and no wheezes Cardio: Rate: regular rate GI: Inspection: No distended Palpation (GI): Soft to palpation : Other: belcher in place Neuro: General: patient oriented x3 Extrem: General: Yes no pedal edema DS: Data Data Completed and Pending Completed studies during hospitalization [Text1]: Procedures Assistance with Respiratory Ventilation, Less than 24 Consecutive Hours, Continuous Positive Airway Pressure (06/09/22) Insertion of Endotracheal Airway into Trachea, Via Natural or Artificial Opening (04/10/22) Insertion of Infusion Device into Right Basilic Vein, Percutaneous Approach (01/21/21) Insertion of Infusion Device into Superior Vena Cava, Percutaneous Approach (04/10/22) Introduction of Vasopressor into Central Vein, Percutaneous Approach (04/10/22) Performance of Urinary Filtration, Intermittent, Less than 6 Hours Per Day (04/10/22) Respiratory Ventilation, 24-96 Consecutive Hours (04/10/22) Ultrasonography of Superior Vena Cava, Guidance (04/10/22) Pending studies at discharge: Pending at discharge 06/15/23 13:42 Surgical [PTH] Routine Labs on day of discharge: Laboratory Results - last 24 hr 06/16/23 06/16/23 06/16/23 11:49 16:08 20:55 Hold Purple Top Sodium Potassium Chloride Carbon Dioxide Anion Gap BUN Creatinine Estim Creat Clear Calc Estimated GFR POC Glucose 129 H 152 H 148 H Random Glucose Calcium 06/17/23 06/17/23 07:09 07:13 Hold Purple Top SEE NOTE Sodium 142 Potassium 5.1 Chloride 107 Carbon Dioxide 23 Anion Gap 17 BUN 62 H Creatinine 3.22 H Estim Creat Clear Calc 17.7 Estimated GFR 14 POC Glucose 106 Random Glucose 106 Calcium 7.9 L Discharge Plan Discharge Anticipated Discharge Date/Time: 06/17/23 11:27 Patient Disposition: Home, Self-Care Discharge Diagnosis: Hyperkalemia Anemia due to GI bleed due to gastritis/duodenitis Referrals: Janet Phelan MD [Primary Care Provider] - 1 Week Piter Novoa MD [Physician] - 1 Week Willian Quigley MD [Physician] - 1 Week Discharge Medications: Continued amlodipine 5 mg tablet 5 mg PO DAILY acetaminophen 650 mg tablet extended release 650 mg PO TID montelukast 10 mg tablet 10 mg PO BEDTIME ezetimibe 10 mg tablet 10 mg PO DAILY rosuvastatin 20 mg tablet 20 mg PO BEDTIME duloxetine 60 mg capsule,delayed release(DR/EC) 60 mg PO DAILY Arnuity Ellipta 100 mcg/actuation blister with device 1 inh INHALATION DAILY metoprolol tartrate 25 mg tablet 25 mg PO BID insulin glargine [Lantus Solostar U-100 Insulin] 100 unit/mL (3 mL) insulin pen 6 unit subcut BEDTIME diclofenac sodium 1 % gel 4 g topical QID PRN (Reason: Pain (Scale Score 1-3)) quetiapine 150 mg tablet 150 mg PO BEDTIME insulin lispro [Humalog KwikPen Insulin] 100 unit/mL insulin pen See Protocol subcut TIDAC Protocol: Insulin Correction Scale Less than or equal to 110 ---- Give (units): 0 111 to 150 Give (units): 0 151 to 200 Give (units): 2 201 to 250 Give (units): 4 251 to 300 Give (units): 6 301 to 350 Give (units): 8 Greater than 350 Give (units): 10 Call MD if Blood Glucose > : 350 albuterol sulfate 90 mcg/actuation HFA aerosol inhaler 2 puff inhalation QID PRN (Reason: Respiratory Distress) ferrous sulfate 325 mg (65 mg iron) tablet 325 mg PO DAILY Held Eliquis 5 mg Tablet 5 mg PO BID Qty: 60 0RF Hold Instructions: Resume 06/26. Call PCP if any further bleeding occurs torsemide 10 mg tablet 20 mg PO DAILY Hold Instructions: hold. follow up with roofing applicator next week lisinopril-hydrochlorothiazide 20-25 mg tablet 1 tab PO DAILY Hold Instructions: Hold for now. follow up with roofing applicator No Action (DME) lancets [FreeStyle Lancets] 28 gauge misc See Rx Instructions .ROUTE .MEDSUPPLY Qty: 100 0RF Rx Instructions: As directed (DME) FreeStyle Lite Strips Strip See Rx Instructions .Route Qty: 100 0RF Rx Instructions: As directed (DME) pen needle, diabetic [Pen Needle] 32 gauge x 5/32 needle See Rx Instructions .Route Qty: 50 0RF Rx Instructions: As directed (DME) lancing device with lancets [OneTouch Delica Lanc Device] Kit See Rx Instructions .ROUTE .MEDSUPPLY Qty: 1 Rx Instructions: As directed Discharge Orders: Discharge Order (Routine); Ordered 06/17/23 Ordered By: Denisha Lee Activity on Discharge: As tolerated Stand Alone Forms: Patient Portal Discharge page Print Language: Albanian Care Plan Goals: See below Health Concerns: Anemia due to GI bleeding due to gastritis/duodenitis Hyperkalemia Low blood pressure Chronic kidney disease Chronic obstructive uropathy, chronic Belcher catheter, chronic hydronephrosis/renal mass Plan of Treatment: Due to gastritis/duodenitis recommend avoid NSAIDs (ibuprofen, naproxyn or other medications in the same class) hold Eliquis for now - resume 06/26. call PCP or return to the ED with any GI bleeding Do not take lisinopril/hydrochlorothiazide, torsemide due to low blood pressure. Can continue taking metoprolol and Norvasc Call to schedule a follow-up appointment in the Nephrology office for next week for close monitoring of kidney function and blood pressure Call to schedule a follow-up appointment with Oncology for ongoing management kidney mass Call to schedule follow-up appointment with Urology to reschedule appointment for left stent change Pathology from endoscopy is pending at the time of discharge. Should get follow up from GI regarding results Assessment: See discharge summary
[2023-06-17 11:08] LABS: Glucose, Whole Blood 146 mg/dL (60-115)
[2023-06-17 11:35] VITALS: PULSE 73; RESP 16; O2SAT 98
--- NOTE | 2023-06-17 11:48 | MHC.CM.PN ---
PT TO DC HOME TODAY WITH RESUMPTION OF UTILITY MANAGER AND [facility] SERVICES PT TO ARRANGE TRANSPORT [facility] NOTIFIED OF DC VIA CAREPORT
== END 2023-06-17 11:57 | disposition home health service (06) | DRG 378 ==
LOC: HO.ED 12:34 → HO.EDOVER 15:10 → HO.S3 19:26 → HO.IMC 06-14 10:15
PROVIDERS: Internal Medicine; Physician Assistant; Admitting Provider Nurse Practitioner Acute Care; Emergency Provider Emergency Medicine; PCP Internal Medicine; Visit Provider Physician Assistant Medical
PROC: 0DJ08ZZ Inspection of Upper Intestinal Tract, Via Natural or Artificial Opening Endoscopic (ICD-10-PCS; CPT 43235; principal; 2023-06-15 13:00)
DX: K29.81 Duodenitis with bleeding (principal); C64.1 Malignant neoplasm of right kidney, except renal pelvis; N18.4 Chronic kidney disease, stage 4 (severe); Z68.41 Body mass index [BMI] 40.0-44.9, adult; E87.21 Acute metabolic acidosis; N13.30 Unspecified hydronephrosis; K29.51 Unspecified chronic gastritis with bleeding; I25.10 Atherosclerotic heart disease of native coronary artery without angina pectoris; D17.5 Benign lipomatous neoplasm of intra-abdominal organs; E66.01 Morbid (severe) obesity due to excess calories; K44.9 Diaphragmatic hernia without obstruction or gangrene; D63.0 Anemia in neoplastic disease; D63.1 Anemia in chronic kidney disease; J45.909 Unspecified asthma, uncomplicated; I12.9 Hypertensive chronic kidney disease with stage 1 through stage 4 chronic kidney disease, or unspecified chronic kidney disease; I48.0 Paroxysmal atrial fibrillation; E87.5 Hyperkalemia; E11.22 Type 2 diabetes mellitus with diabetic chronic kidney disease; Z87.891 Personal history of nicotine dependence; Z79.4 Long term (current) use of insulin; Z79.01 Long term (current) use of anticoagulants; Z79.899 Other long term (current) drug therapy
CPT/HCPCS: 36415; 80048; 82272; 82728; 82947; 83036; 83540; 83735; 85025; 85027; 85610; 86850; 86900; 86901; 86923; 88305; 88313; 88342; 93005; 94640; 99285; C1758; C9113; J1580; J2405; J2704; P9016

== ENCOUNTER → 2023-06-13 11:40 | Outpatient (BNV) | payer OTHER, SELFPAY | PROVIDERS: Admitting Provider Nurse Practitioner Acute Care; Emergency Provider Emergency Medicine; PCP Internal Medicine; Visit Provider Internal Medicine | DX: I48.91 Unspecified atrial fibrillation (principal) | CPT/HCPCS: 93010 ==

== ENCOUNTER → 2023-06-13 14:49 | Outpatient (BNV) | payer OTHER, SELFPAY | PROVIDERS: Admitting Provider Nurse Practitioner Acute Care; Emergency Provider Emergency Medicine; PCP Internal Medicine; Visit Provider Internal Medicine | DX: K62.5 Hemorrhage of anus and rectum (principal); D63.8 Anemia in other chronic diseases classified elsewhere; C64.1 Malignant neoplasm of right kidney, except renal pelvis | CPT/HCPCS: 99222 ==

== ENCOUNTER → 2023-06-13 14:49 | Outpatient (BNV) | payer OTHER, SELFPAY | PROVIDERS: Admitting Provider Nurse Practitioner Acute Care; Emergency Provider Emergency Medicine; PCP Internal Medicine; Visit Provider Internal Medicine Nephrology | DX: N18.9 Chronic kidney disease, unspecified (principal); D64.9 Anemia, unspecified; Z96.0 Presence of urogenital implants | CPT/HCPCS: 99223; 99232 ==

== ENCOUNTER → 2023-06-13 14:49 | Outpatient (BNV) | payer OTHER, SELFPAY | PROVIDERS: Admitting Provider Nurse Practitioner Acute Care; Emergency Provider Emergency Medicine; PCP Internal Medicine; Visit Provider Nurse Practitioner Acute Care | DX: N17.9 Acute kidney failure, unspecified (principal); N18.9 Chronic kidney disease, unspecified; K92.2 Gastrointestinal hemorrhage, unspecified; D64.9 Anemia, unspecified; C64.9 Malignant neoplasm of unspecified kidney, except renal pelvis; N13.30 Unspecified hydronephrosis | CPT/HCPCS: 99223; 99232; 99233; 99239 ==

== ENCOUNTER 2023-06-23 10:27 | Outpatient (AMB) | payer OTHER, SELFPAY ==
--- NOTE | 2023-06-23 10:28 | HO.NEPHOV_ITS ---
Vital Signs 06/23/23 10:30 Height 5 ft 3 in Weight 220 lb BMI 39.0 BP 80/50 L Blood Pressure Location Lt brachial Position Sitting Pulse 92 Pulse Source Pulse Oximeter Pulse Oximetry (%) 93 Oxygen Delivery Method Room Air Intake Visit Reasons: Seen by DR Novoa at [facility] on 06/13/23/ Confirmed Wildlife Forensic Geneticist Required: No Accompanied by: Daughter Allergies atorvastatin [ATORVASTATIN] Allergy (Intermediate, Verified 06/23/23 10:34) SWELLING morphine [MORPHINE] Allergy (Intermediate, Verified 06/23/23 10:34) RASH zolpidem [From AMBIEN] Adverse Reaction (Intermediate, Verified 06/23/23 10:34) SLEEP WALKS HPI Comments Details: 77-year-old woman with advanced CKD who was scheduled for a ureteral stent , was found to have significantly low H&H and was sent to ER recently. She was brought to the ER for further management. She has had dark stools . She did not have any chest pain, dizziness, nausea, vomiting, diarrhea, headaches, visual changes, loss of consciousness. In the ER, hemoglobin noted to be 6.6/21.3, potassium 5.3, creatinine 2.89. She was admitted for further management and treatment of acute blood loss anemia. She underwent EGD 06/14 found to have chronic gastritis, mild duodenitis. GI Recommended to hold Eliquis for 1-2 weeks and avoid NSAIDs. She also has Solis catheter in place. She is known to have renal mass on the right side and had undergone biopsy in [facility], results of which were available to me at the time of this office visit. During the hospitalization her diuretics and lisinopril were put on hold. She is also planned for elective left ureteral stent change and will be following up with Urology. She denies any uremic symptoms. She was accompanied by her daughter in the office. She has not had any medication changes since hospital discharge. [facility] Medical History (Updated 06/23/23 @ 15:11 by Piter Novoa MD) CKD (chronic kidney disease) stage 4, GFR 15-29 ml/min CAD (coronary artery disease) History of myocardial infarction Type 2 diabetes mellitus with unspecified complications Paroxysmal atrial fibrillation Multiple falls Arthritis Limited mobility Chronic pain Anxiety and depression Asthma Urgency incontinence High cholesterol Lateral malleolar fracture HTN (hypertension) Surgical History History of cystoscopy Hx of cholecystectomy History of cataract extraction History of heart artery stent Hx of colonoscopy H/O neck surgery Family History Father No problems noted. Mother Diabetes High blood pressure Stomach cancer Social History Household Members: None Housing: Apartment Are you a primary special needs caregiver to a significant other at home: No Do you presently have visiting nurse or other home services: Yes Unable to assess alcohol history related to: Unable to respond and Unknown Alcohol intake: never Patient Tobacco Use Status: Former Tobacco user Quit Date: 2005 Tobacco use type: Cigarette Years Smoked: 30-40 Second Hand Smoke Exposure: No Substance Use Type: Crack/Cocaine Advance Directives Date on File: 06/13/23 service: No Current occupational status: disabled Physical Exam Vital Signs: Last Vital Signs Pulse 92 06/23/23 10:30 BP 80/50 L 06/23/23 10:30 Pulse Ox 93 06/23/23 10:30 Oxygen Delivery Method Room Air 06/23/23 10:30 BMI result Body Mass Index 39.0 Const Other: Solis catheter in place General: comfortable and no acute distress Orientation/consciousness: patient oriented x3 HEENT Head: Yes normocephalic Mouth: Normal oral and palatal mucosa present Eyes EOM: EOMs intact bilaterally Neck Neck: Yes supple Resp Auscultation: clear to auscultation bilaterally Cardio Jugular venous distension: no JVD Rate: regular rate GI Palpation (GI): Soft to palpation Auscultation: normal bowel sounds General: Yes no CVA tenderness Back/Spine/Pelvis Back: no CVA tenderness Skin General skin exam: no rashes or lesions noted Neuro General: patient oriented x3 and moves all extremities Extrem General: Yes no pedal edema Results Reviewed Nephrology Results: Hgb 9.5 g/dl (12.0-16.0) L 06/16/23 WBC 10.7 X10*3/uL (4.8-10.8) 06/16/23 Plt Count 231 X10*3/uL (160-400) 06/16/23 Sodium 142 mmol/L (135-145) 06/17/23 Potassium 5.1 mmol/L (3.3-5.1) 06/17/23 Chloride 107 mmol/L (96-108) 06/17/23 Carbon Dioxide 23 mmol/L (22-29) 06/17/23 BUN 62 mg/dL (9-16) H 06/17/23 Creatinine 3.22 mg/dL (0.5-1.4) H 06/17/23 Calcium 7.9 mg/dL (8.4-10.2) L 06/17/23 Urine Protein 300 (3+) mg/dL (Neg-Trace) H 05/30/23 Assessment & Plan Assessment & Plan (1) HTN (hypertension): Code(s): I10 - Essential (primary) hypertension Category: Medical Qualifiers: Hypertension type: primary hypertension Qualified Code(s): I10 - Essential (primary) hypertension (2) CKD (chronic kidney disease) stage 4, GFR 15-29 ml/min: Code(s): N18.4 - Chronic kidney disease, stage 4 (severe) Category: Medical Plan 77 yr old woman with Chronic left hydronephrosis ,requiring stent change, right renal mass recently admitted with GI bleed Has Superimposed LETHA due to reduced renal perfusion in a setting of GI bleed /hypotension; ACEi and HCTZ has been on hold Renal functions had been stable prior to discharge; Await left stent change; Had biopsy of the right renal mass in [facility] [place] [place](results pending) I did not make any medication changes today. Follow-up blood work ordered. Further management is pending evolving data Time spent calling providers, retrieving data, clinical encounter, documentation 62 minutes Orders: Orders Creatinine Today I10 - Essential (primary) hypertension, N18.4 - Chronic kidney disease, stage 4 (severe) Blood Urea Nitrogen Today I10 - Essential (primary) hypertension, N18.4 - Chronic kidney disease, stage 4 (severe) Electrolytes Today I10 - Essential (primary) hypertension, N18.4 - Chronic kidney disease, stage 4 (severe) Phosphorus Today I10 - Essential (primary) hypertension, N18.4 - Chronic kidney disease, stage 4 (severe) Calcium Today I10 - Essential (primary) hypertension, N18.4 - Chronic kidney disease, stage 4 (severe) Parathyroid Hormone Intact Today I10 - Essential (primary) hypertension, N18.4 - Chronic kidney disease, stage 4 (severe) Vitamin D 25-OH Total Today I10 - Essential (primary) hypertension, N18.4 - Chronic kidney disease, stage 4 (severe) Coding Level of Care Code Est Pt Level 5 (40189) Diagnoses Primary hypertension I10 Hypertension type: primary hypertension CKD (chronic kidney disease) stage 4, GFR 15-29 ml/min N18.4
[2023-06-23 10:30] VITALS: BP 80/50; PULSE 92; O2SAT 93; BMI 39.0
== END 2023-06-23 11:16 | disposition home or self-care (01) ==
PROVIDERS: PCP Internal Medicine; Visit Provider Internal Medicine Nephrology
DX: I12.9 Hypertensive chronic kidney disease with stage 1 through stage 4 chronic kidney disease, or unspecified chronic kidney disease (principal); N18.4 Chronic kidney disease, stage 4 (severe)
CPT/HCPCS: 99215

== ENCOUNTER → 2023-06-23 10:27 | Outpatient (BNVA) | payer OTHER, SELFPAY | PROVIDERS: PCP Internal Medicine; Visit Provider Internal Medicine Nephrology | DX: I12.9 Hypertensive chronic kidney disease with stage 1 through stage 4 chronic kidney disease, or unspecified chronic kidney disease (principal); N18.4 Chronic kidney disease, stage 4 (severe); N17.9 Acute kidney failure, unspecified | CPT/HCPCS: 99212 ==

== ENCOUNTER 2023-07-04 10:08 | Day surgery (SDC) | payer OTHER, SELFPAY ==
--- NOTE | ~2023-07-04 | FL_ITS ---
EXAMINATION: XR FLUOROSCOPY WITH IMAGES CLINICAL INFORMATION: Ureteral stent exchange. COMPARISON: None available. TECHNIQUE: Fluoroscopy Supervised By: Dr. Willian Quigley. Fluoroscopy Time: 7.9 seconds. Cumulative Dose: 5.61 mGy. DAP: No DAP on this machine. Images: 3. FINDINGS: Intraoperative fluoroscopy and spot films were performed during a procedure in the OR. Images show an exchange of a left ureteral stent with a guidewire in the left collecting system, an old stent removed and final image demonstrates a new stent with some redundancy in the region of the renal pelvis. Please see Dr. Willian Quigley's report for complete details. FL/FL guidance in OR IMPRESSION: Intraoperative fluoroscopy and spot films were obtained. Please see Dr. Willian Quigley's report for complete details.
[2023-07-04 10:54] VITALS: BP 141/85; PULSE 99; RESP 18; TEMP 36.4; O2SAT 99; BMI 41.8
[2023-07-04 11:07] LABS: Glucose, Whole Blood 103 mg/dL (60-115)
[2023-07-04 13:37] LABS: Glucose, Whole Blood 95 mg/dL (60-115)
--- NOTE | 2023-07-04 13:48 | PC.NURSE ---
spoke to daughter dian and made her aware that her mom hasnt had her procedure at this time.
--- NOTE | 2023-07-04 14:03 | HO.ANESPROP2 ---
[facility] Active Problems Active Problems: All Active Problems CKD (chronic kidney disease) stage 4, GFR 15-29 ml/min (Acute) GI bleed (Acute) Anemia (Chronic) Anemia (Acute) Renal cancer (Acute) Right renal mass (Acute) Recurrent UTI (Acute) Hydronephrosis, left (Acute) Pyuria (Acute) Renal mass (Acute) Urinary incontinence without sensory awareness (Acute) Hydroureteronephrosis (Acute) Urinary retention with incomplete bladder emptying (Acute) Chronic UTI (urinary tract infection) (Acute) Frequency of micturition (Acute) HTN (hypertension) (Acute) Diabetes mellitus (Acute) High cholesterol (Acute) Urgency incontinence (Acute) Past Medical History Medical History (Updated 06/25/23 @ 00:01 by Yoana Navarrete) Chronic kidney disease CKD (chronic kidney disease) stage 4, GFR 15-29 ml/min CAD (coronary artery disease) History of myocardial infarction Type 2 diabetes mellitus with unspecified complications Paroxysmal atrial fibrillation Multiple falls Arthritis Limited mobility Chronic pain Anxiety and depression Asthma Urgency incontinence High cholesterol Lateral malleolar fracture HTN (hypertension) Family History Family History Father No problems noted. Mother Diabetes High blood pressure Stomach cancer Family history of problems with anesthesia: No Surgical History Surgical History History of cystoscopy Hx of cholecystectomy History of cataract extraction History of heart artery stent Hx of colonoscopy H/O neck surgery History of Problems with Anesthesia: No Social History Social History Household Members: None Housing: Apartment Are you a primary daycare director to a significant other at home: No Do you presently have visiting nurse or other home services: Yes Unable to assess alcohol history related to: Unable to respond and Unknown Alcohol intake: never Patient Tobacco Use Status: Former Tobacco user Quit Date: 2005 Tobacco use type: Cigarette Years Smoked: 30-40 Second Hand Smoke Exposure: No Use of substances other than those prescribed or required for medical reasons: No Substance Use Type: Crack/Cocaine Are you DNR?: No Advance Directives: No Advance Directives Information Provided: Yes Advance Directives Date on File: 06/13/23 service: No Current occupational status: disabled Meds Allergies Allergy/AdvReac Type Severity Reaction Status Date / Time atorvastatin [ATORVASTATIN] Allergy Intermediate SWELLING Verified 06/23/23 10:34 morphine [MORPHINE] Allergy Intermediate RASH Verified 06/23/23 10:34 zolpidem [From AMBIEN] AdvReac Intermediate SLEEP WALKS Verified 06/23/23 10:34 Active Medications: Current Medications Acetaminophen (Acetaminophen 325 Mg Tablet) 650 mg PO ONCE PRN PRN Reason: Pain, Mild (Pain Scale 1-3) Stop: 07/04/23 17:41 Fentanyl (Fentanyl Citrate/Pf 100 Mcg/2 Ml Vial) 25 mcg IVPUSH Q5M PRN; Protocol PRN Reason: Pain, Moderate(Pain Scale 4-6) Stop: 07/04/23 17:41 Hydromorphone HCl (Hydromorphone Hcl 0.5 Mg/0.5 Ml Syringe) 0.5 mg IVPUSH Q5M PRN; Protocol PRN Reason: Pain, Severe (Pain Scale 7-10) Stop: 07/04/23 17:41 Ondansetron HCl (Ondansetron Hcl 4 Mg/2 Ml Vial) 4 mg IVPUSH ONCE PRN PRN Reason: Nausea and Vomiting Stop: 07/04/23 17:41 Home Medications ?Medication ?Instructions ?Recorded ?Confirmed ?Last Taken ?Type lancing device with lancets kit #1 ea 03/24/21 03/23/23 Unknown History (Spendji Lancing Device kit) albuterol sulfate 90 mcg/actuation 2 puff inhalation QID PRN 11/30/21 06/13/23 Unknown History aerosol inhaler Respiratory Distress insulin lispro 100 unit/mL See Protocol subcut TIDAC 06/09/22 06/13/23 Unknown History subcutaneous pen (Humalog KwikPen (U-100) Insulin) acetaminophen 650 mg 650 mg PO TID 06/13/23 06/13/23 Unknown History tablet,extended release amlodipine 5 mg tablet 5 mg PO DAILY 06/13/23 06/13/23 Unknown History duloxetine 60 mg capsule,delayed 60 mg PO DAILY 06/13/23 06/13/23 Unknown History release fluticasone furoate 100 1 inh inhalation DAILY 06/13/23 06/13/23 Unknown History mcg/actuation blister powder for inhalation (Arnuity Ellipta) insulin glargine 100 unit/mL (3 6 unit subcut BEDTIME 06/13/23 06/13/23 Unknown History mL) subcutaneous pen (Lantus Solostar U-100 Insulin) montelukast 10 mg tablet 10 mg PO BEDTIME 06/13/23 06/13/23 Unknown History quetiapine 150 mg tablet 150 mg PO BEDTIME 06/13/23 06/13/23 Unknown History rosuvastatin 20 mg tablet 20 mg PO BEDTIME 06/13/23 06/13/23 Unknown History estradiol 1 mg tablet 1 mg PO DAILY 06/23/23 Unknown History apixaban 5 mg tablet (Eliquis) 5 mg PO BID 07/03/23 07/03/23 Unknown History Exam Height,Weight and Vital Signs: Height 5 ft 4 in Weight 110.4 kg Last Vital Signs Temp 97.6 F 07/04/23 10:54 Pulse 99 07/04/23 10:54 Resp 18 07/04/23 10:54 BP 141/85 H 07/04/23 10:54 Pulse Ox 99 07/04/23 10:54 O2 Del Method Room Air 07/04/23 10:54 Pertinent Lab Results Pertinent Lab Results: Laboratory Tests 07/04/23 07/04/23 11:03 13:33 POC Glucose 103 95 Airway Mallampati Class: IV TM Dist: <=3cm Neck ROM: Full Loose/Missing/Broken Teeth: No Heart: rrr Lungs: cta Assessment and Plan Assessment Anesthesia Assessment: Anesthesia Plan Discussed and Chart Reviewed Final Anesthetic Review Family History of Problems with Anesthesia: No History of Problems with Anesthesia: No NPO: Yes ASA Class: III Final Preanesthetic Review: No Changes in Pt Med Stat, Meds/Allgs Chart Reviewed, Consent Obtained/Reviewed and Anes Risks/Benef Reviewed Patient Risk: Intermediate Procedure Risk: Low Anesthetic Plan Anesthetic Plan: GA Disposition: Standard PACU
--- NOTE | 2023-07-04 15:22 | MHC.SHP ---
Pre-Procedural Eval Section A - 24 Hr Update-Section A only Date of Service: 07/04/23 The patient is an INPATIENT: No The patient has been examined within 24 hours of the surgical procedure. The History & Physical has been completed within 30 days and I have reviewed it.: Yes Section B - Complete if H&P > 30 days Chief Complaint: hydonephrosis Allergies: Allergies Allergy/AdvReac Type Severity Reaction Status Date / Time atorvastatin [ATORVASTATIN] Allergy Intermediate SWELLING Verified 06/23/23 10:34 morphine [MORPHINE] Allergy Intermediate RASH Verified 06/23/23 10:34 zolpidem [From AMBIEN] AdvReac Intermediate SLEEP WALKS Verified 06/23/23 10:34 Plan Diagnosis/Plan: Unchanged I have reviewed the history and physical and performed a pertinent physical examination on my patient. No changes have occurred unless specified. cystoscopy Left Ureteral stent exchange Time Spent With Patient Time: Total time managing care of this patient today ____ minutes.
[2023-07-04 16:06] VITALS: BP 168/75; PULSE 66; RESP 19; TEMP 36.1; O2SAT 100
[2023-07-04 16:10] VITALS: BP 168/83; PULSE 65; RESP 18; O2SAT 100
--- NOTE | 2023-07-04 16:10 | W.PM.OPN ---
Operative Note Operative Note Date of Service: 07/04/23 Narrative: PreOperative Diagnosis:?? Right renal mass, Left hydronephrosis Post Operative Diagnosis:?? ?Right renal mass, Left hydronephrosis Procedure: - cystoscopy, left ureteral stent exchange, size 7 by 26 Surgeon:?Dr Willian Quigley Anesthesia:? General Indications for procedure: Shweta is a 77-year-old female has chronic belcher due to voiding dysfunction. She was noted on imaging to have a right renal mass suspicious for neoplasm and left hydronephrosis. Lasix renal scan was done on 01/17/23-- Diminished function, perfusion and execretion of the right kidney. Normal left kidney perfusion, function and delayed excretion. There is no response of either kidney to Lasix from 30 to 60 minutes. The split renal function of left kidney is 86.1 % and right kidney is 13.9%. Left ureteral stent placed in February. Here for stent exchange. Procedure: After informed consent was verified the patient was brought to the operating placed on the OR table in supine position.? General Anesthesia was administered per protocol.? The patient was placed in lithotomy position, on inspection, a small portion of the stent was visible throught the urethra. The genitalia was prepped and draped in the usual sterile fashion.? Safety pause time-out and side of surgery confirmed.? Antibiotics confirmed. A 22 Belarusian cystoscope was inserted transurethrally, The bladder was visualized.? Erythematous changes on the posterior wall c/w prior catheter use noted. Both ureteric orifices were in normal position. The left ureteral stent was visualized. A guide wire was passed along side the stent into the renal pelvis. the ureteral stent was removed. A 7 fr by 26 cm ureteral stent was passed over the guide wire under fluoroscopic guidance. The guide wire was removed. ? The rigid cystoscope was removed. ? A 16 fr belcher was placed. The patient tolerated the procedure well and was brought to the recovery room in stable condition. Complications: None Drains: Ureteral stent as dictated above, 16 fr belcher
[2023-07-04 16:15] VITALS: BP 163/78; PULSE 66; RESP 14; O2SAT 99
[2023-07-04 16:20] VITALS: BP 165/79; PULSE 66; RESP 14; O2SAT 99
[2023-07-04 16:35] VITALS: BP 167/74; PULSE 67; RESP 15; TEMP 36.1; O2SAT 97
== END 2023-07-04 16:53 | disposition home or self-care (01) ==
PROVIDERS: PCP Internal Medicine; Visit Provider Urology
PROC: 0TJB8ZZ Inspection of Bladder, Via Natural or Artificial Opening Endoscopic (ICD-10-PCS; CPT 52000; principal; 2023-07-04 13:00)
DX: N13.30 Unspecified hydronephrosis (principal); N28.89 Other specified disorders of kidney and ureter; C64.9 Malignant neoplasm of unspecified kidney, except renal pelvis; N32.9 Bladder disorder, unspecified; R33.9 Retention of urine, unspecified; E11.22 Type 2 diabetes mellitus with diabetic chronic kidney disease; I12.9 Hypertensive chronic kidney disease with stage 1 through stage 4 chronic kidney disease, or unspecified chronic kidney disease; N18.9 Chronic kidney disease, unspecified; E78.00 Pure hypercholesterolemia, unspecified; I48.0 Paroxysmal atrial fibrillation; Z87.440 Personal history of urinary (tract) infections; Z87.891 Personal history of nicotine dependence; Z79.4 Long term (current) use of insulin; Z79.899 Other long term (current) drug therapy; Z79.02 Long term (current) use of antithrombotics/antiplatelets; Z79.01 Long term (current) use of anticoagulants
CPT/HCPCS: 52332; 82947; C2617; J0290; J1580; J2704; J3010; Q9967

== ENCOUNTER → 2023-07-04 10:08 | Outpatient (BNV) | payer OTHER, SELFPAY | PROVIDERS: PCP Internal Medicine; Visit Provider Urology | DX: N32.9 Bladder disorder, unspecified (principal) | CPT/HCPCS: 52310 ==

== ENCOUNTER 2023-07-26 11:47 | Outpatient (AMB) | payer OTHER, SELFPAY ==
--- NOTE | 2023-07-26 11:56 | HO.NEPHOV_ITS ---
Vital Signs 07/26/23 11:57 Weight 220 lb BP 110/60 Blood Pressure Location Lt brachial Position Sitting Pulse 53 Pulse Source Pulse Oximeter Pulse Oximetry (%) 98 Oxygen Delivery Method Room Air Intake Visit Reasons: CKD/ 1 MO FU/ Conf Chart Computer Required: No Accompanied by: Grand Child Allergies atorvastatin [ATORVASTATIN] Allergy (Intermediate, Verified 07/26/23 11:59) SWELLING morphine [MORPHINE] Allergy (Intermediate, Verified 07/26/23 11:59) RASH zolpidem [From AMBIEN] Adverse Reaction (Intermediate, Verified 07/26/23 11:59) SLEEP WALKS HPI Comments Details: 77-year-old woman with advanced CKD who recently was found to have significantly low H&H with dark stools . She did not have any chest pain, dizziness, nausea, vomiting, diarrhea, headaches, visual changes, loss of consciousness. She underwent EGD 06/14 found to have chronic gastritis, mild duodenitis. GI Recommended to hold Eliquis for 1-2 weeks and avoid NSAIDs. She is known to have renal mass on the right side and had undergone biopsy in [facility]. During the hospitalization her diuretics and lisinopril were put on hold. She is also planned for elective left ureteral stent change and will be following up with Urology. She denies any uremic symptoms. She was accompanied by her grand daughter in the office. She has not had any medication changes recently. [facility], [facility] Medical History (Updated 06/25/23 @ 00:01 by Yoana Navarrete) Chronic kidney disease CKD (chronic kidney disease) stage 4, GFR 15-29 ml/min CAD (coronary artery disease) History of myocardial infarction Type 2 diabetes mellitus with unspecified complications Paroxysmal atrial fibrillation Multiple falls Arthritis Limited mobility Chronic pain Anxiety and depression Asthma Urgency incontinence High cholesterol Lateral malleolar fracture HTN (hypertension) Surgical History History of cystoscopy Hx of cholecystectomy History of cataract extraction History of heart artery stent Hx of colonoscopy H/O neck surgery Family History Father No problems noted. Mother Diabetes High blood pressure Stomach cancer Social History Household Members: None Housing: Apartment Are you a primary pet care assistant to a significant other at home: No Do you presently have visiting nurse or other home services: Yes Unable to assess alcohol history related to: Unable to respond and Unknown Alcohol intake: never Patient Tobacco Use Status: Former Tobacco user Tobacco use type: Cigarette Years Smoked: 30-40 Second Hand Smoke Exposure: No Substance Use Type: Crack/Cocaine Advance Directives Date on File: 06/13/23 service: No Current occupational status: disabled Review of Systems Const All systems reviewed & are unremarkable except as noted in HPI and below Physical Exam Vital Signs: Last Vital Signs Pulse 53 07/26/23 11:57 BP 110/60 07/26/23 11:57 Pulse Ox 98 07/26/23 11:57 Oxygen Delivery Method Room Air 07/26/23 11:57 Const General: comfortable and no acute distress Orientation/consciousness: patient oriented x3 HEENT Head: Yes normocephalic Mouth: Normal oral and palatal mucosa present Eyes EOM: EOMs intact bilaterally Neck Neck: Yes supple Resp Auscultation: clear to auscultation bilaterally Cardio Jugular venous distension: no JVD Rate: regular rate GI Palpation (GI): Soft to palpation Auscultation: normal bowel sounds General: Yes no CVA tenderness Back/Spine/Pelvis Back: no CVA tenderness Skin General skin exam: no rashes or lesions noted Neuro General: patient oriented x3 and moves all extremities Results Reviewed Nephrology Results: Hgb 9.5 g/dl (12.0-16.0) L 06/16/23 WBC 10.7 X10*3/uL (4.8-10.8) 06/16/23 Plt Count 231 X10*3/uL (160-400) 06/16/23 Sodium 142 mmol/L (135-145) 06/17/23 Potassium 5.1 mmol/L (3.3-5.1) 06/17/23 Chloride 107 mmol/L (96-108) 06/17/23 Carbon Dioxide 23 mmol/L (22-29) 06/17/23 BUN 62 mg/dL (9-16) H 06/17/23 Creatinine 3.22 mg/dL (0.5-1.4) H 06/17/23 Calcium 7.9 mg/dL (8.4-10.2) L 06/17/23 Assessment & Plan Assessment & Plan (1) CKD (chronic kidney disease) stage 4, GFR 15-29 ml/min: Code(s): N18.4 - Chronic kidney disease, stage 4 (severe) Category: Medical (2) HTN (hypertension): Code(s): I10 - Essential (primary) hypertension Category: Medical Qualifiers: Hypertension type: primary hypertension Qualified Code(s): I10 - Essential (primary) hypertension Plan 77 yr old woman with Chronic left hydronephrosis ,requiring stent change, right renal mass recently had hospitalization with GI bleed Has Superimposed LETHA due to reduced renal perfusion in a setting of GI bleed /hypotension; ACEi and HCTZ has been on hold Renal functions had been stable prior to discharge; Await left stent change; Had biopsy of the right renal mass in [facility] Labs ordered for today; I did not make any medication changes today. Follow-up blood work ordered as well. Orders: Orders Creatinine 3 Months N18.4 - Chronic kidney disease, stage 4 (severe) Blood Urea Nitrogen 3 Months N18.4 - Chronic kidney disease, stage 4 (severe) Electrolytes 3 Months N18.4 - Chronic kidney disease, stage 4 (severe) Calcium 3 Months N18.4 - Chronic kidney disease, stage 4 (severe) Coding Level of Care Code Est Pt Level 4 (54105) Diagnoses CKD (chronic kidney disease) stage 4, GFR 15-29 ml/min N18.4 Primary hypertension I10 Hypertension type: primary hypertension
[2023-07-26 11:57] VITALS: BP 110/60; PULSE 53; O2SAT 98
== END 2023-07-26 12:18 | disposition home or self-care (01) ==
PROVIDERS: PCP Internal Medicine; Visit Provider Internal Medicine Nephrology
DX: I12.9 Hypertensive chronic kidney disease with stage 1 through stage 4 chronic kidney disease, or unspecified chronic kidney disease (principal); N18.4 Chronic kidney disease, stage 4 (severe)
CPT/HCPCS: 99214

== ENCOUNTER 2023-07-26 12:32 | Outpatient (REF) | payer OTHER, SELFPAY ==
[2023-07-26 13:53] LABS: Anion Gap 14 (12-20); Blood Urea Nitrogen 45 mg/dL (9-16); Calcium 7.6 mg/dL (8.4-10.2); Carbon Dioxide 20 mmol/L (22-29); Chloride 113 mmol/L (96-108); Estimated Glomerular Filt Rate 17; Phosphorus 4.9 mg/dL (2.7-4.5); Potassium 4.4 mmol/L (3.3-5.1); Sodium 143 mmol/L (135-145)
[2023-07-26 14:13] LABS: Vitamin D 25-OH Total 10.5 ng/mL (>30)
[2023-07-26 14:45] LABS: Parathyroid Hormone Intact 410.1 pg/mL (8.7-77.1)
== END 2023-07-26 12:33 | disposition home or self-care (01) ==
LOC: HO.10HDL 12:32
PROVIDERS: Visit Provider Internal Medicine Nephrology
DX: I12.9 Hypertensive chronic kidney disease with stage 1 through stage 4 chronic kidney disease, or unspecified chronic kidney disease (principal); N18.4 Chronic kidney disease, stage 4 (severe)
CPT/HCPCS: 36415; 80051; 82306; 82310; 82565; 83970; 84100; 84520; 99212

== ENCOUNTER 2023-08-22 13:28 | Outpatient (AMB) | payer OTHER, SELFPAY ==
--- NOTE | 2023-08-22 13:29 | MHC.OFFVIS ---
Vital Signs 08/22/23 13:32 BMI Reason not done Patient refused/unable BP 110/70 Blood Pressure Location Rt brachial Position Sitting Pulse 72 Pulse Source Pulse Oximeter Intake Visit Reasons: 1 yr f/up Freezer Machine Operator Required: Yes Freezer Machine Operator Name: [id number]/[email or web address] Clinical Training Specialist: Clinical Training Specialist Present Accompanied by: Grand Child Allergies atorvastatin [ATORVASTATIN] Allergy (Intermediate, Verified 07/26/23 11:59) SWELLING morphine [MORPHINE] Allergy (Intermediate, Verified 07/26/23 11:59) RASH zolpidem [From AMBIEN] Adverse Reaction (Intermediate, Verified 07/26/23 11:59) SLEEP WALKS Medication List - Last Reconciled 08/22/23 by Mitchell Monterroso MD acetaminophen ER 650 mg PO TID albuterol sulfate 90 mcg/actuation 2 puffs inhalation QID PRN amlodipine 5 mg PO DAILY apixaban (Eliquis) 5 mg PO BID blood sugar diagnostic (FreeStyle Lite Strips) As directed cholecalciferol (vitamin D3) 1,250 mcg PO QWEEK duloxetine 60 mg PO DAILY estradiol 1 mg PO DAILY fluticasone furoate 100 mcg/actuation (Arnuity Ellipta) 1 inh inhalation DAILY insulin glargine (Lantus Solostar U-100 Insulin) 6 units subcut BEDTIME insulin lispro (Humalog KwikPen (U-100) Insulin) See Protocol sliding scale doses subcut TIDAC lancets (FreeStyle Lancets) As directed lancing device with lancets ([employer] Lancing Device kit) As directed montelukast 10 mg PO BEDTIME pen needle, diabetic (Pen Needle) As directed rosuvastatin 20 mg PO BEDTIME HPI Comments Details: Shweta returns for follow-up. In the past, she was seen regarding atrial fibrillation. Overall, she states she is doing fine. No complaints like angina or shortness of breath or palpitations or anything else cardiac sounding. Many comorbidities including obesity, diabetes, hypertension, dyslipidemia. She comes in a motorized wheelchair. No longer on beta-blockers. Unclear why. They do not know. Otherwise, it seems that she was hospitalized for GI bleed couple months ago. At that time, underwent workup and that showed gastritis, duodenitis and duodenal lipoma. There was a brief hold of Eliquis but now she is back on it. PFSH Medical History (Updated 08/22/23 @ 13:48 by Mitchell Monterroso MD) Paroxysmal atrial fibrillation Chronic kidney disease CKD (chronic kidney disease) stage 4, GFR 15-29 ml/min CAD (coronary artery disease) History of myocardial infarction Type 2 diabetes mellitus with unspecified complications Multiple falls Arthritis Limited mobility Chronic pain Anxiety and depression Asthma Urgency incontinence High cholesterol Lateral malleolar fracture HTN (hypertension) Surgical History History of cystoscopy Hx of cholecystectomy History of cataract extraction History of heart artery stent Hx of colonoscopy H/O neck surgery Family History Father No problems noted. Mother Diabetes High blood pressure Stomach cancer Social History Household Members: None Housing: Apartment Are you a primary hearing care practitioner to a significant other at home: No Do you presently have visiting nurse or other home services: Yes Unable to assess alcohol history related to: Unable to respond and Unknown Alcohol intake: never Patient Tobacco Use Status: Former Tobacco user Tobacco use type: Cigarette Years Smoked: 30-40 Second Hand Smoke Exposure: No Substance Use Type: Crack/Cocaine Advance Directives Date on File: 06/13/23 service: No Current occupational status: disabled Review of Systems Const Denies chills, Denies fatigue, Denies fever(s), Denies weight gain and Denies weight loss Card Denies chest pain, Denies leg edema, Denies lightheadedness, Denies palpitations, Denies dyspnea on exertion and Denies orthopnea Resp Denies cough and Denies dyspnea on exertion GI Denies hematochezia and Denies change in stool character Musc Denies muscle weakness and Denies radiating pain into limb Endo Denies fatigue and Denies palpitations Physical Exam Vital Signs: Last Vital Signs Pulse 72 08/22/23 13:32 BP 110/70 08/22/23 13:32 Const General: comfortable and no acute distress Orientation/consciousness: patient oriented x3 HEENT Other: Unremarkable Head: Yes normal to inspection Neck Neck: Yes normal visual inspection Chest Chest palpation & inspection: normal inspection of the chest Resp Auscultation: clear to auscultation bilaterally Cardio Palpation: normal PMI Heart sounds: S1 normal heart sound present, S2 normal heart sound present, no gallops, no murmurs and no rubs GI Palpation (GI): Soft to palpation Back/Spine/Pelvis Other: unremarkable Skin General skin exam: no rashes or lesions noted Neuro General: patient oriented x3 Extrem General: Yes normal to inspection Psych Mental Status: mental status grossly normal Assessment & Plan Assessment & Plan (1) Paroxysmal atrial fibrillation: Code(s): I48.0 - Paroxysmal atrial fibrillation Category: Medical (2) GI bleed: Code(s): K92.2 - Gastrointestinal hemorrhage, unspecified Category: Medical (3) HTN (hypertension): Code(s): I10 - Essential (primary) hypertension Category: Medical Qualifiers: Hypertension type: primary hypertension Qualified Code(s): I10 - Essential (primary) hypertension (4) Diabetes mellitus: Code(s): E11.9 - Type 2 diabetes mellitus without complications Category: Medical Plan Cardiac studies reviewed. Echocardiogram 2022 with LVEF of 60-60%. No wall motion abnormalities. Mild pulmonary hypertension. Myocardial perfusion imaging study 2021 shows no clear evidence of any ischemia or infarction. Suspected normal perfusion. In the Holter monitor from 2021, underlying rhythm is sinus with an average rate of 61/Min. Atrial fibrillation burden 21%. Today, by auscultation, she seems to be in atrial fibrillation. EKG from May shows atrial fibrillation with nonspecific ST-T changes. Ventricular rate 92/Min. Another EKG about the same time shows sinus rhythm. Overall, it seems that she is still in and out of atrial fibrillation. She was on beta-blockers but not currently taking them. Unclear reason, possibly due to low blood pressure. We will check another Holter. If the rate is spontaneously well controlled, then probably not necessary but if not resume beta-blockers and may have to cut back on the amlodipine. Continue anticoagulation unless there is recurrent GI bleeding issues. In that case, may need evaluation for Watchman device. With regard to diabetes, hemoglobin A1c is 5.4%. Seems controlled. Listed to be on insulin. Blood pressure stable and on amlodipine. Orders: Orders ECG 3 day holter monitor Today I48.0 - Paroxysmal atrial fibrillation Coding Level of Care Code Est Pt Level 4 (57985) Diagnoses Paroxysmal atrial fibrillation I48.0 GI bleed K92.2 Primary hypertension I10 Hypertension type: primary hypertension Diabetes mellitus E11.9
[2023-08-22 13:32] VITALS: BP 110/70; PULSE 72
== END 2023-08-22 13:54 | disposition home or self-care (01) ==
PROVIDERS: PCP Internal Medicine; Visit Provider Internal Medicine
DX: I48.0 Paroxysmal atrial fibrillation (principal); K92.2 Gastrointestinal hemorrhage, unspecified; I10 Essential (primary) hypertension; E11.9 Type 2 diabetes mellitus without complications
CPT/HCPCS: 99214

== ENCOUNTER → 2023-08-22 13:28 | Outpatient (BNVA) | payer OTHER, SELFPAY | PROVIDERS: PCP Internal Medicine; Visit Provider Internal Medicine | DX: I48.0 Paroxysmal atrial fibrillation (principal); K92.2 Gastrointestinal hemorrhage, unspecified; I10 Essential (primary) hypertension; E11.9 Type 2 diabetes mellitus without complications; Z79.01 Long term (current) use of anticoagulants | CPT/HCPCS: 99212 ==

== ENCOUNTER → 2023-09-06 12:28 | Outpatient (REF) | payer OTHER, SELFPAY ==
--- NOTE | 2023-09-06 12:31 | HM_ITS ---
* Total monitoring time 3 days. * Underlying rhythm is atrial fibrillation with an average rate of 106/Min. About 47% of the time, rate > 100/Min. * Rare supraventricular ectopy. * No significant pauses or AV blocks. * No patient markers or diary events. MTDD
== END ==
LOC: HO.CARD 12:28
PROVIDERS: PCP Internal Medicine; Visit Provider Internal Medicine
DX: I48.0 Paroxysmal atrial fibrillation (principal)
CPT/HCPCS: 93242

== ENCOUNTER → 2023-09-06 12:31 | Outpatient (BNV) | payer OTHER, SELFPAY | PROVIDERS: PCP Internal Medicine; Visit Provider Internal Medicine | DX: I48.91 Unspecified atrial fibrillation (principal) | CPT/HCPCS: 93244 ==

== ENCOUNTER 2023-10-11 10:19 | Inpatient (IN) | payer OTHER, SELFPAY ==
[2023-10-11] VITALS (24 sets, daily range): BP systolic 44–148; BP diastolic 26–106; PULSE 68–137; RESP 15–26; TEMP 35.1–36.6; O2SAT 88–100; BMI 37.2
--- NOTE | ~2023-10-11 | NM_ITS ---
PULMONARY PERFUSION ONLY STUDY: CLINICAL INDICATION: Dyspnea. Suspected pulmonary thromboembolism. PROCEDURE: Following the intravenous administration of 4.0 millicuries technetium 99m MAA, images of the chest were obtained in multiple projections using a gamma scintiphotographic camera. COMPARISON: No recent chest radiograph or a CT of the chest is available for comparison. PERFUSION IMAGES: No segmental perfusion defects or other perfusion abnormalities are noted. NM/NM pul perfusion IMPRESSION: Based on perfusion only modified PIOPED 2 criteria, pulmonary thromboembolism is absent. This critical result was discussed with Mylene CHERRY at 4:29 PM on 10/11/2023 and it was ascertained that the content and urgency of the report was understood at the time of direct communication. The need for chest radiograph was discussed at the time of direct communication. Electronically signed by: Austin Rosales MD 10/11/2023 04:33 PM EDT
--- NOTE | ~2023-10-11 | XR_ITS ---
EXAMINATION: XR CHEST CLINICAL INFORMATION: Intubated COMPARISON: Chest radiograph 03/11/2023 TECHNIQUE: Frontal view of the chest was obtained. FINDINGS: It is difficult to see the ET tube but this is probably about 5 cm above the stalin. An NG tube is present with its tip below the diaphragm beyond the [id number]. The lungs are markedly hypoinflated. There is airspace disease on the right as well as at the left lung base. A left-sided pleural effusion cannot be excluded. Synovial note again is made of cervical spine posterior fusion hardware XR/XR chest 1V IMPRESSION: 1. ET tube about 5 cm above the stalin. 2. Hypoinflated lungs with airspace disease on the right and left lung base. Electronically signed by: Ramesh Winchester MD 10/11/2023 07:34 PM EDT
--- NOTE | ~2023-10-11 | CT_ITS ---
EXAMINATION: CT CERVICAL SPINE WITHOUT CONTRAST CLINICAL INFORMATION: Pain after falling COMPARISON: None available. TECHNIQUE: Thin section axial images with sagittal and coronal reformats This CT examination was performed using dose optimization techniques as appropriate, variously including the following: *Automated exposure control *Adjustment of mA and/or kV according to patient size (this includes techniques or standardized protocols for targeted exams where dose is matched to indication/reason for exam; i.e. extremities or head) *Use of iterative reconstruction technique DLP: 706 mGy-cm FINDINGS: Extensive surgical changes in the posterior elements throughout the cervical spine with bridging osseous formation. This creates some artifact overlying the spinal canal. There is posterior bridging ossification along the posterior margin of the vertebral bodies which does create what appears to be chronic narrowing of the spinal canal throughout. No fracture or destructive process. There is calcification in the prevertebral soft tissues. There is extensive productive change at the C1-[address]/CT cervical spine wo IV con IMPRESSION: No fracture. See above comments. Fleischner guidelines were followed. Electronically signed by: Jayme Chairez MD 10/11/2023 12:02 PM EDT
--- NOTE | ~2023-10-11 | CT_ITS ---
EXAMINATION: CT HEAD WITHOUT CONTRAST CLINICAL INFORMATION: Fall. Pain COMPARISON: None available. TECHNIQUE: Contiguous axial imaging was performed from the skull base to vertex without intravenous administration of contrast. This CT examination was performed using dose optimization techniques as appropriate, variously including the following: *Automated exposure control *Adjustment of mA and/or kV according to patient size (this includes techniques or standardized protocols for targeted exams where dose is matched to indication/reason for exam; i.e. extremities or head) *Use of iterative reconstruction technique DLP: 716 mGy-cm FINDINGS: Prominence of the sulci and ventricles noted. No intra or extra-axial fluid collection, hemorrhage, mass or mass effect. Calvarium is intact. CT/CT head/brain wo IV con IMPRESSION: No acute intracranial pathology. Electronically signed by: Jayme Chairez MD 10/11/2023 12:22 PM EDT
--- NOTE | 2023-10-11 10:53 | ECG_ITS ---
Test Reason : SOB Blood Pressure : / mmHG Vent. Rate : 143 BPM Atrial Rate : 000 BPM P-R Int : 000 ms QRS Dur : 074 ms QT Int : 308 ms P-R-T Axes : 000 -06 197 degrees QTc Int : 475 ms Atrial fibrillation with rapid ventricular response Low voltage QRS Inferior infarct , age undetermined Abnormal ECG When compared with ECG of 13-JUN-2023 12:00, Vent. rate has increased BY 51 BPM Inferior infarct is now Present Referred By: Generic ED Physician Electronically Signed By:SONIA GALO
--- NOTE | 2023-10-11 11:23 | PC.NURSE ---
pt incontinent. changed and cleaned. large bandage and dressing noted to right flank. clean and intact.
[2023-10-11 11:38] LABS: MANUAL DIFF FLAG NO
[2023-10-11 11:44] LABS: Basophils Absolute Auto 0.1 X10*3/uL (0.0-0.2); Basophils Percent Auto 0.3 % (0-2); Hematocrit 31.3 % (37.0-47.0); Hemoglobin 9.8 g/dl (12.0-16.0); Imm Gran Abs Auto 0.33 X10*3/uL (0.00-0.03); Imm Gran Pct Auto 1.9 % (0.0-0.4); Lymphocytes Absolute Auto 0.6 X10*3/uL (1.2-4.9); Lymphocytes Percent Auto 3.3 % (20-40); Mean Corpuscular HGB Conc 31.3 g/dl (31.0-35.0); Mean Corpuscular Hemoglobin 28.4 pg (27.0-33.0); Mean Corpuscular Volume 90.7 fL (80.0-98.0); Mean Platelet Volume 10.4 fL (9.4-12.3); Monocytes Percent Auto 5.8 % (2-11); Neutrophils Absolute Auto 15.2 x10*3/uL (2.0-8.3); Neutrophils Percent Auto 88.7 % (45-73); Platelet Count 563 X10*3/uL (160-400); Red Blood Count 3.45 X10*6/uL (4.20-5.50); Red Cell Distribution Width 16.4 % (11.0-16.0); White Blood Count 17.2 X10*3/uL (4.8-10.8)
[2023-10-11 11:54] LABS: Alanine Aminotransferase 6 U/L (0-31); Albumin Level 3.3 g/dL (3.5-5.0); Alkaline Phosphatase 113 U/L (39-117); Anion Gap 18 (12-20); Aspartate Amino Transferase 15 U/L (5-31); Bilirubin Total 0.5 mg/dL (0.0-1.0); Blood Urea Nitrogen 41 mg/dL (9-16); Carbon Dioxide 21 mmol/L (22-29); Chloride 109 mmol/L (96-108); Creatinine Clr Calc Pharmacy 21.1; Estimated Glomerular Filt Rate 17; Glucose Random 184 mg/dL (60-115); Magnesium 2.2 mg/dL (1.6-2.6); Potassium 4.7 mmol/L (3.3-5.1); Sodium 143 mmol/L (135-145)
[2023-10-11 12:04] LABS: Troponin-I High Sensitivity 266.2 ng/L (<3.5-17.0)
--- NOTE | 2023-10-11 12:10 | ECG_ITS ---
Test Reason : ELEVATED TROP Blood Pressure : / mmHG Vent. Rate : 119 BPM Atrial Rate : 000 BPM P-R Int : 000 ms QRS Dur : 070 ms QT Int : 256 ms P-R-T Axes : 000 054 226 degrees QTc Int : 360 ms Atrial fibrillation with rapid ventricular response Low voltage QRS Nonspecific ST and T wave abnormality Abnormal ECG When compared with ECG of 11-OCT-2023 10:55, Criteria for Inferior infarct are no longer Present Referred By: Chino Turner Electronically Signed By:SONIA GALO
[2023-10-11 12:16] LABS: Influenza A PCR NEGATIVE (Negative); Influenza B PCR NEGATIVE (Negative); Resp Syncy Virus RNA Qual PCR NEGATIVE (Negative); SARS COV2 PCR INHOUSE POSITIVE (Negative)
--- NOTE | 2023-10-11 12:25 | ED.GENADULT ---
HPI - General Adult General Chief complaint: Fall Stated complaint: LKWT 9PM,RESP NOW,FELL PER EMS Time Seen by Provider: 10/11/23 12:01 History of Present Illness ED Provider: Johnny ROBLES narrative: 78-year-old female with past medical history of CKD, CAD, myocardial infarction, diabetes, hypertension, AFib currently not on thinners presenting for fall with prolonged down time. Per EMS patient was found by family on the ground this morning at her home. Patient states that at some point during the night she fell however she does not recall when or how it happened. Patient states that she experienced chest pain this morning however she is no longer having chest pain. She does endorse shortness of breath and denies head pain, neck pain, abdominal pain, nausea, vomiting, urinary symptoms. Patient was recently hospitalized for approximately 2-3 weeks at [facility] Related Data Home Medications ?Medication ?Instructions ?Recorded ?Confirmed lancing device with lancets kit #1 ea 03/24/21 08/22/23 ([email or web address] Lancing Device kit) albuterol sulfate 90 mcg/actuation 2 puff inhalation QID PRN 11/30/21 08/22/23 aerosol inhaler Respiratory Distress insulin lispro 100 unit/mL See Protocol subcut TIDAC 06/09/22 08/22/23 subcutaneous pen (Humalog KwikPen (U-100) Insulin) acetaminophen 650 mg 650 mg PO TID 06/13/23 08/22/23 tablet,extended release duloxetine 60 mg capsule,delayed 60 mg PO DAILY 06/13/23 08/22/23 release fluticasone furoate 100 1 inh inhalation DAILY 06/13/23 08/22/23 mcg/actuation blister powder for inhalation (Arnuity Ellipta) insulin glargine 100 unit/mL (3 6 unit subcut BEDTIME 06/13/23 08/22/23 mL) subcutaneous pen (Lantus Solostar U-100 Insulin) montelukast 10 mg tablet 10 mg PO BEDTIME 06/13/23 08/22/23 rosuvastatin 20 mg tablet 20 mg PO BEDTIME 06/13/23 06/13/23 estradiol 1 mg tablet 1 mg PO DAILY 06/23/23 08/22/23 apixaban 5 mg tablet (Eliquis) 5 mg PO BID 07/03/23 08/22/23 Previous Rx's ?Medication ?Instructions ?Recorded blood sugar diagnostic (FreeStyle #100 ea 01/26/21 Lite Strips) lancets 28 gauge (FreeStyle #100 ea 01/26/21 Lancets) pen needle, diabetic 32 gauge x #50 ea 01/26/21 (Pen Needle) cholecalciferol (vitamin D3) 1,250 1,250 mcg PO QWEEK #12 caps 07/26/23 mcg (50,000 unit) capsule metoprolol tartrate 25 mg tablet 25 mg PO BID 90 days #180 tabs 09/13/23 Allergies Allergy/AdvReac Type Severity Reaction Status Date / Time atorvastatin [ATORVASTATIN] Allergy Intermediate SWELLING Verified 10/11/23 10:44 morphine [MORPHINE] Allergy Intermediate RASH Verified 07/26/23 11:59 zolpidem [From AMBIEN] AdvReac Intermediate SLEEP WALKS Verified 07/26/23 11:59 Review of Systems Review of Systems: Patient denies fevers, chills, head pain, neck pain, abdominal pain, nausea, vomiting, urinary symptom Patient endorses shortness of breath, chest pain [facility] Past Medical History Attestation statement: The following information was validated with the patient. [facility] Narrative: AFib, CKD, renal mass, diabetes Source: old records reviewed Medical History (Updated 10/11/23 @ 20:32 by Chino Turner MD) Paroxysmal atrial fibrillation Chronic kidney disease CKD (chronic kidney disease) stage 4, GFR 15-29 ml/min CAD (coronary artery disease) History of myocardial infarction Type 2 diabetes mellitus with unspecified complications Multiple falls Arthritis Limited mobility Chronic pain Anxiety and depression Asthma Urgency incontinence High cholesterol Lateral malleolar fracture HTN (hypertension) Surgical History History of cystoscopy Hx of cholecystectomy History of cataract extraction History of heart artery stent Hx of colonoscopy H/O neck surgery Family History Family History Father No problems noted. Mother Diabetes High blood pressure Stomach cancer Social History Social History Household Members: None Housing: Apartment Are you a primary administrator health care facility to a significant other at home: No Do you presently have visiting nurse or other home services: Yes Unable to assess alcohol history related to: Unable to respond and Unknown Alcohol intake: never Patient Tobacco Use Status: Former Tobacco user Tobacco use type: Cigarette Years Smoked: 30-40 Smoked in Last 30 Days: No Second Hand Smoke Exposure: No Use of substances other than those prescribed or required for medical reasons: No Substance Use Type: Crack/Cocaine Advance Directives: Yes Advance Directives on File: Yes Advance Directives Date on File: 06/13/23 service: No Current occupational status: disabled Physical Exam ED Vital Signs: Vital Signs - 24 hr 10/11/23 10:40 10/11/23 14:57 10/11/23 16:43 Temperature 97.7 F 97.8 F Pulse Rate 137 H 136 H 101 H Respiratory Rate 26 H 15 Blood Pressure 124/88 148/106 H Pulse Oximetry 97 98 Oxygen Delivery Method Nasal Cannula Room Air Fraction of Inspired Oxygen 10/11/23 16:56 10/11/23 17:21 10/11/23 19:40 Temperature Pulse Rate 110 H Respiratory Rate 17 Blood Pressure 116/95 H Pulse Oximetry Oxygen Delivery Method Fraction of Inspired Oxygen 70 70 BMI result Body Mass Index 37.2 Lungs clear to auscultation bilaterally Normal S1-S2 irregular rate and tachycardic Abdomen soft, mildly distended however nontender to palpation No lower extremity edema appreciated No focal neurologic deficits appreciated No external signs of trauma appreciated Medications Administered Generic Name Dose Route Start Last Admin Trade Name Freq PRN Reason Stop Dose Admin Heparin Sodium/Sodium Chloride 25,000 unit in 250 mls @ 0 mls/hr 10/11/23 13:30 10/11/23 17:52 Heparin Sodium,Porcine/1/2ns IVCONT 0 units/kg/hr .Q0M MARY CARMEN 0 mls/hr Titration Protocol Per Protocol Fentanyl 1,000 mcg in 100 mls @ 0 mls/hr 10/11/23 16:45 10/11/23 16:56 Sublimaze/Ns IVCONT 50 mcg/hr .Q0M MARY CARMEN 5 mls/hr Titration Protocol Per Protocol Sodium Bicarbonate 150 meq/ 1,000 mls @ 100 mls/hr 10/11/23 19:00 10/11/23 19:19 Dextrose IV 100 mls/hr .Q10H MARY CARMEN Administration Vancomycin HCl 2,000 mg in 500 mls @ 250 mls/hr 10/11/23 19:00 10/11/23 19:30 Vancomycin/Ns IV 10/11/23 20:59 250 mls/hr ONCE ONE Administration Discontinued Medications Generic Name Dose Route Start Last Admin Trade Name Adam PRN Reason Stop Dose Admin Aspirin 325 mg 10/11/23 14:40 10/11/23 15:11 Aspirin Enteric Coated 325 Mg Tablet.Dr PO 10/11/23 14:41 325 mg ONCE ONE Administration Diltiazem HCl 25.375 mg 10/11/23 14:47 10/11/23 15:26 Diltiazem Hcl 50 Mg/10 Ml Vial 0.25 mg/kg (25.375 mg) 10/11/23 14:48 25.375 mg IVPUSH Administration ONCE ONE Heparin Sodium (Porcine) 8,100 unit 10/11/23 13:19 10/11/23 15:14 Heparin Sodium,Porcine 5,000 Unit/Ml Vial 80 unit/kg (8100 unit) 10/11/23 13:20 8,100 unit IVPUSH Administration ONCE ONE Piperacillin Sod/Tazobactam 50 mls @ 100 mls/hr 10/11/23 18:26 10/11/23 19:51 Sod 2.25 gm/ Sodium Chloride IV 10/11/23 18:55 Infused ONCE ONE Infusion Sodium Chloride 1,000 mls @ 999 mls/hr 10/11/23 18:45 10/11/23 19:51 Ns IV 10/11/23 19:45 Infused .Q1H1M MARY CARMEN Infusion Rocuronium [place] 100 mg 10/11/23 18:44 10/11/23 18:45 Rocuronium [place] 50 Mg/5 Ml Vial IVPUSH 10/11/23 18:45 100 mg ONCE ONE Administration Sodium Bicarbonate 50 meq 10/11/23 20:09 10/11/23 18:06 Sodium Bicarbonate 8.4% 50 Meq/50 Ml Syringe IVPUSH 10/11/23 20:10 50 meq ONCE ONE Administration Sodium Bicarbonate 50 meq 10/11/23 20:10 10/11/23 18:03 Sodium Bicarbonate 8.4% 50 Meq/50 Ml Syringe IVPUSH 10/11/23 20:11 50 meq ONCE ONE Administration Procedures Arterial Line Time Out Performed: No Size (Gauge): 14 Technique Used: modified Seldinger technique Post-Procedure: line sutured into place Patient Tolerated Procedure: well and no complications Complications: none Site: left Central Line Placement Right Femoral: Time Out Performed: No Patient Placed on Monitor/Pulse Ox: Yes MD Prep: mask and gloves Central Line Prep: Chlorhexidine scrub Ultrasound Used for Placement: Yes Central Line Lumen Inserted: triple Post Procedure: sutured in place Post Procedure X-Ray: tip of catheter in good position Patient Tolerated Procedure: well Complications: none Intubation Intubation Type:: Endotracheal Tube Insertion Intubation Date:: 10/11/23 Time out performed: No sedative: Etomidate Mg Given: 20 paralytic: Succinylcholine Mg Given: 100 Laryngoscope: Christin ET Tube Size: 7 ET Tube Uncuffed: No Tube Secured Depth (cm): 22 Tube Secured Location: teeth Tube Placement Confirmation: visualized tube passing through cords Patient Tolerated Procedure: no complications Intubation Complications: none Medical Decision Making Medical Decision Making [facility] Narrative: 78-year-old female patient with recent prolonged hospitalization presenting for fall and shortness of breath My primary concern is pulmonary embolism given her recent hospitalization, tachycardia and shortness of breath Patient's troponins are elevated and I am concerned for ACS as well considering demand ischemia, rhabdomyolysis, underlying infection, CHF exacerbation Patient is currently in AFib with RVR. Plan is to control her rate after pulmonary embolism is ruled out CT head and neck were ordered to rule out traumatic head and neck injury 13:20 CT head negative for bleed; heparin ordered Patient unable to undergo CT scanning due to kidney function; V/Q scan ordered instead Patient found to be COVID positive 15:40 pt became hypoxic to 70s with decreased AMS and patient was subsequently intubated Patient went into cardiac arrest after being intubated. She received multiple rounds of epi, sodium bicarb and calcium. She was PEA on rhythm checks. She received CPR for a total approx time of 35-40minuts. She received TNK during code due to concerns for PE as her VQ scan had not resulted. After ROSC she was started on epi drip and levo drip. Heparin drip was paused given she had received TNK. Propofol had initially been ordered for sedation however patient is pressures can not tolerate it and she was switched to a fentanyl drip I consulted Dr. Myles for admission however he felt that patient would be better served at [facility] given they have a CCU unit. I agreed with Dr. Myles and reached out to [facility] CCU in ICU for transfer however both teams declined. CCU attending, Dr. Mcdonough, stated patient was not a candidate for any immediate intervention and recommended ICU admission at [facility]. At [facility] ICU attending Dr. Lagunas declined admission stating that since she is not undergoing any immediate cardiac intervention she can remain here at [place]. I explained that patient continues to have rising trops and despite this neither team would accept her therefore pt will go to our ICU Patient's repeat CBC showed hemoglobin of 6.8 and platelets of 131. I ordered Kcentra, vitamin K, 1 unit of blood and 1 unit of platelet. Differential Diagnosis Differential Diagnoses: The differential diagnosis associated with the presentation includes PE, ACS, rhabdomyolysis, pneumonia, COVID/flu, pna Consult Healthcare Provider Management of the patient was discussed with: Electric T[employer] Slitter (Cardiology) I spoke with Dr. Mohr regarding patient's elevated troponin. He recommended rate control, heparin and agreed with plan for CTA to rule out PE I consulted Dr. Myles I consulted [facility]'s CCU attending (Dr. Mcdonough) and ICU attending (Dr. Lagunas) Lab Data MDM Lab Attestation statement: I reviewed the patient's lab results. Elevated troponin, elevated white count, COVID positive, anemic, low platelets 10/11/23 17:52 10/11/23 17:52 Labs: Lab Results 10/11/23 10/11/23 10/11/23 Range/Units 11:32 12:41 14:01 WBC 17.2 H 18.0 H (4.8-10.8) X10*3/uL RBC 3.45 L 3.38 L (4.20-5.50) X10*6/uL Hgb 9.8 L 9.5 L (12.0-16.0) g/dl Hct 31.3 L 30.5 L (37.0-47.0) % MCV 90.7 90.2 (80.0-98.0) fL MCH 28.4 28.1 (27.0-33.0) pg MCHC 31.3 31.1 (31.0-35.0) g/dl RDW 16.4 H 16.2 H (11.0-16.0) % Plt Count 563 H D 530 H (160-400) X10*3/uL MPV 10.4 10.0 (9.4-12.3) fL Immature Gran % (Auto) 1.9 H (0.0-0.4) % Neut % (Auto) 88.7 H (45-73) % Lymph % (Auto) 3.3 L (20-40) % [place] % (Auto) 5.8 (2-11) % Eos % (Auto) 0.0 (0-4) % Baso % (Auto) 0.3 (0-2) % Lymph # (Auto) 0.6 L (1.2-4.9) X10*3/uL [place] # (Auto) 1.0 (0.1-1.2) X10*3/uL Eos # (Auto) 0.0 (0.0-0.4) X10*3/uL Baso # (Auto) 0.1 (0.0-0.2) X10*3/uL Abs Immat Gran (auto) 0.33 H (0.00-0.03) X10*3/uL Absolute Neuts (auto) 15.2 H (2.0-8.3) x10*3/uL Absolute Nucleated RBC 0.000 0.000 (0.0-0.012) X10*3/uL Nucleated RBC % (auto) 0.0 0.0 (0.0-0.2) /100WBC Neutrophils % (Manual) (45-73) % Band Neutrophils % (3-5) % Lymphocytes % (Manual) (20-40) % Basophils % (Manual) (0-2) % Metamyelocytes % % Abs Neuts (Manual) (2.0-8.3) X10*3/uL Lymphocytes # (Manual) (1.2-4.9) X10*3/uL Basophils # (Manual) (0.0-0.2) X10*3/uL Metamyelocytes # X10*3/uL Nucleated RBCs (0-0) /100WBC Smudge Cells Platelet Estimate (NORMAL) Large Platelets Plt Morphology Comment RBC Morphology Acanthocytes (Spur) /OIF PT 15.0 H 14.6 H (11.1-13.3) SEC INR 1.2 H 1.2 H (0.9-1.1) APTT 27.1 (26.0-36.8) SEC aPTT Heparin Protocol 29.8 L (53-77.9) SEC O2 Saturation % ABG pH at Pt Temp (7.35-7.45) ABG pCO2 at Pt Temp (32-45) mmHg ABG pO2 at Pt Temp (83-108) mmHg ABG HCO3 (22-26) mmol/L ABG Base Excess (Actual) mmol/L VBG pH (7.32-7.43) VBG pCO2 mmHg VBG pO2 mmHg VBG HCO3 (22-26) mmol/L VBG O2 Saturation % VBG Base Excess mmol/L Sodium 143 (135-145) mmol/L Potassium 4.7 (3.3-5.1) mmol/L Chloride 109 H (96-108) mmol/L Carbon Dioxide 21 L (22-29) mmol/L Anion Gap 18 (12-20) BUN 41 H (9-16) mg/dL Creatinine 2.68 H (0.5-1.4) mg/dL Estim Creat Clear Calc 21.1 Estimated GFR 17 Random Glucose 184 H (60-115) mg/dL Lactic Acid (0.5-2.0) mmol/L Calcium 9.0 D (8.4-10.2) mg/dL Magnesium 2.2 (1.6-2.6) mg/dL Total Bilirubin 0.5 (0.0-1.0) mg/dL AST 15 (5-31) U/L ALT 6 (0-31) U/L Alkaline Phosphatase 113 (39-117) U/L Total Creatine Kinase 94 (26-140) U/L Troponin I High Sens 266.2 H* D 410.0 H* D (<3.5-17.0) ng/L B-Natriuretic Peptide 1401 H (<100) pg/mL Total Protein 8.0 (6.5-8.0) g/dL Albumin 3.3 L (3.5-5.0) g/dL Influenza Type A (PCR) NEGATIVE (Negative) Influenza Type B (PCR) NEGATIVE (Negative) RSV RNA Qual (PCR) NEGATIVE (Negative) SARS-CoV-2 RNA (RT-PCR) POSITIVE A (Negative) Blood Type Antibody Screen Crossmatch 10/11/23 10/11/23 10/11/23 Range/Units 17:01 17:52 17:58 WBC 23.3 H (4.8-10.8) X10*3/uL RBC 2.34 L D (4.20-5.50) X10*6/uL Hgb 6.7 L* D (12.0-16.0) g/dl Hct 22.6 L D (37.0-47.0) % MCV 96.6 D (80.0-98.0) fL MCH 28.6 (27.0-33.0) pg MCHC 29.6 L (31.0-35.0) g/dl RDW 16.7 H (11.0-16.0) % Plt Count 131 L D (160-400) X10*3/uL MPV 8.6 L (9.4-12.3) fL Immature Gran % (Auto) Cancelled (0.0-0.4) % Neut % (Auto) Cancelled (45-73) % Lymph % (Auto) Cancelled (20-40) % [place] % (Auto) Cancelled (2-11) % Eos % (Auto) Cancelled (0-4) % Baso % (Auto) Cancelled (0-2) % Lymph # (Auto) Cancelled (1.2-4.9) X10*3/uL [place] # (Auto) Cancelled (0.1-1.2) X10*3/uL Eos # (Auto) Cancelled (0.0-0.4) X10*3/uL Baso # (Auto) Cancelled (0.0-0.2) X10*3/uL Abs Immat Gran (auto) Cancelled (0.00-0.03) X10*3/uL Absolute Neuts (auto) Cancelled (2.0-8.3) x10*3/uL Absolute Nucleated RBC 0.080 H (0.0-0.012) X10*3/uL Nucleated RBC % (auto) 0.3 H (0.0-0.2) /100WBC Neutrophils % (Manual) 85 H (45-73) % Band Neutrophils % 6 H (3-5) % Lymphocytes % (Manual) 6 L (20-40) % Basophils % (Manual) 1 (0-2) % Metamyelocytes % 2 % Abs Neuts (Manual) 21.2 H (2.0-8.3) X10*3/uL Lymphocytes # (Manual) 1.4 (1.2-4.9) X10*3/uL Basophils # (Manual) 0.2 (0.0-0.2) X10*3/uL Metamyelocytes # 0.5 X10*3/uL Nucleated RBCs 1 H (0-0) /100WBC Smudge Cells PRESENT Platelet Estimate DECREASED (NORMAL) Large Platelets PRESENT Plt Morphology Comment NORMAL RBC Morphology NOTED Acanthocytes (Spur) 1+ (0-2) /OIF PT 18.5 H D (11.1-13.3) SEC INR 1.5 H (0.9-1.1) APTT 103.1 H* D (26.0-36.8) SEC aPTT Heparin Protocol (53-77.9) SEC O2 Saturation 99.0 % ABG pH at Pt Temp 7.23 L (7.35-7.45) ABG pCO2 at Pt Temp 65 H* (32-45) mmHg ABG pO2 at Pt Temp 281 H (83-108) mmHg ABG HCO3 28 H (22-26) mmol/L ABG Base Excess (Actual) -0.5 mmol/L VBG pH 7.15 L* (7.32-7.43) VBG pCO2 59 mmHg VBG pO2 45 mmHg VBG HCO3 21 L (22-26) mmol/L VBG O2 Saturation 54.0 % VBG Base Excess -7.3 mmol/L Sodium 157 H (135-145) mmol/L Potassium 4.7 (3.3-5.1) mmol/L Chloride 109 H (96-108) mmol/L Carbon Dioxide 19 L (22-29) mmol/L Anion Gap 34 H (12-20) BUN 42 H (9-16) mg/dL Creatinine 2.90 H (0.5-1.4) mg/dL Estim Creat Clear Calc 19.5 Estimated GFR 16 Random Glucose 167 H (60-115) mg/dL Lactic Acid 18.6 H* (0.5-2.0) mmol/L Calcium 10.9 H D (8.4-10.2) mg/dL Magnesium 2.7 H (1.6-2.6) mg/dL Total Bilirubin (0.0-1.0) mg/dL AST (5-31) U/L ALT (0-31) U/L Alkaline Phosphatase (39-117) U/L Total Creatine Kinase (26-140) U/L Troponin I High Sens 936.4 H* D (<3.5-17.0) ng/L B-Natriuretic Peptide (<100) pg/mL Total Protein (6.5-8.0) g/dL Albumin (3.5-5.0) g/dL Influenza Type A (PCR) (Negative) Influenza Type B (PCR) (Negative) RSV RNA Qual (PCR) (Negative) SARS-CoV-2 RNA (RT-PCR) (Negative) Blood Type O Positive Antibody Screen NEGATIVE Crossmatch See Detail ABG Data Attestation ABG: I personally reviewed and interpreted this ABG as follows: Interpretation: Low pH Independent Interpretation I performed an independent interpretation of an: EKG and CT Scan Interpretation: EKG showing AFib with RVR Patient is asking negative for large Critical Care Time Critical Care Time Critical Care Time: Yes Total Critical Care Time: 2 Attestation: 2 hours of critical care Discharge Plan Discharge Clinical Impression: Cardiac arrest, COVID, Elevated troponin Patient Disposition: Admitted As Inpatient
[2023-10-11 12:56] LABS: INTERNATIONAL NORM RATIO 1.2 (0.9-1.1)
[2023-10-11 12:59] LABS: Partial Thromboplastin Time 27.1 SEC (26.0-36.8)
[2023-10-11 13:07] LABS: B Type Natriuretic Peptide 1401 pg/mL (<100)
--- NOTE | 2023-10-11 13:15 | MHC.CM.ED ---
Received notification from Brittney KIRKLAND that patient is active with their agency. Return referral sent in [facility] so they can follow for d/c needs.
[2023-10-11 14:07] LABS: Hematocrit 30.5 % (37.0-47.0); Hemoglobin 9.5 g/dl (12.0-16.0); Mean Corpuscular HGB Conc 31.1 g/dl (31.0-35.0); Mean Corpuscular Hemoglobin 28.1 pg (27.0-33.0); Mean Corpuscular Volume 90.2 fL (80.0-98.0); Platelet Count 530 X10*3/uL (160-400); Red Blood Count 3.38 X10*6/uL (4.20-5.50); Red Cell Distribution Width 16.2 % (11.0-16.0)
--- NOTE | 2023-10-11 14:10 | PC.NURSE ---
per MD, pt can go to [facility] before starting heparin drip. Transport taking patient now
[2023-10-11 14:37] LABS: INTERNATIONAL NORM RATIO 1.2 (0.9-1.1); Prothrombin Time 14.6 SEC (11.1-13.3)
[2023-10-11 14:39] LABS: PTT Heparin Drip 29.8 SEC (53-77.9)
--- NOTE | 2023-10-11 14:54 | PC.NURSE ---
pt back from [facility]uc [facility]
[2023-10-11] MEDS: Aspirin Enteric Coated 325 MG TABLET.DR PO (15:11)
[2023-10-11] MEDS: Heparin Sodium,Porcine 5,000 UNIT/ML VIAL 8100 UNIT IVPUSH (15:14)
[2023-10-11] MEDS: Heparin Sodium,Porcine/1/2NS 25,000 UNIT/250 ML IV.SOLN 14.21 UNIT IVCONT (15:19)
[2023-10-11] MEDS: dilTIAZem HCL 50 MG/10 ML VIAL 25.375 MG IVPUSH (15:26)
--- NOTE | 2023-10-11 15:28 | PC.NURSE ---
heparin drip started, ordered for next PTT HD placed. pt reports on and off chest MD jaimie aware
[2023-10-11] MEDS: fentaNYL citrate/NS 1,000 MCG/100 ML PLAST..BAG 2.5 MCG IVCONT (16:43)
[2023-10-11 17:12] LABS: ABG Base Excess -0.5 mmol/L; ABG HCO3 28 mmol/L (22-26); ABG pCO2 65 mmHg (32-45); ABG pH 7.23 (7.35-7.45); ABG pO2 281 mmHg (83-108)
[2023-10-11] MEDS: Norepinephrine Bitartrate/D5W 8 MG/250 ML PLAST..BAG 152.25 MG IVCONT (17:18)
[2023-10-11] MEDS: Norepinephrine Bitartrate/D5W 8 MG/250 ML PLAST..BAG 380.63 MG IVCONT ×2 (18:02→20:43)
[2023-10-11 18:03] LABS: Venous Blood Gas Refer to POC result
[2023-10-11] MEDS: Sodium Bicarbonate 8.4% 50 MEQ/50 ML SYRINGE IVPUSH ×2 (18:03→18:06)
[2023-10-11 18:04] LABS: VBG Base Excess -7.3 mmol/L; VBG HCO3 21 mmol/L (22-26); VBG pCO2 59 mmHg; VBG pH 7.15 (7.32-7.43); VBG pO2 45 mmHg
[2023-10-11 18:12] LABS: INTERNATIONAL NORM RATIO 1.5 (0.9-1.1); Prothrombin Time 18.5 SEC (11.1-13.3)
[2023-10-11 18:17] LABS: Partial Thromboplastin Time 103.1 SEC (26.0-36.8)
[2023-10-11 18:20] LABS: Hematocrit 22.6 % (37.0-47.0); Mean Corpuscular HGB Conc 29.6 g/dl (31.0-35.0); Mean Corpuscular Hemoglobin 28.6 pg (27.0-33.0); Mean Corpuscular Volume 96.6 fL (80.0-98.0); Mean Platelet Volume 8.6 fL (9.4-12.3); NRBC Pct Auto 0.3 /100WBC (0.0-0.2); Platelet Count 131 X10*3/uL (160-400); Red Blood Count 2.34 X10*6/uL (4.20-5.50); Red Cell Distribution Width 16.7 % (11.0-16.0); White Blood Count 23.3 X10*3/uL (4.8-10.8)
[2023-10-11 18:26] LABS: Anion Gap 34 (12-20); Blood Urea Nitrogen 42 mg/dL (9-16); Calcium 10.9 mg/dL (8.4-10.2); Carbon Dioxide 19 mmol/L (22-29); Chloride 109 mmol/L (96-108); Creatinine Clr Calc Pharmacy 19.5; Estimated Glomerular Filt Rate 16; Glucose Random 167 mg/dL (60-115); Magnesium 2.7 mg/dL (1.6-2.6); Potassium 4.7 mmol/L (3.3-5.1); Sodium 157 mmol/L (135-145)
[2023-10-11 18:29] LABS: Hemoglobin 6.7 g/dl (12.0-16.0)
[2023-10-11 18:31] LABS: Lactic Acid 18.6 mmol/L (0.5-2.0)
[2023-10-11 18:36] LABS: Troponin-I High Sensitivity 936.4 ng/L (<3.5-17.0)
[2023-10-11] MEDS: 0.9 % Sodium Chloride 1,000 ML 999 ML IV (18:45)
[2023-10-11] MEDS: Rocuronium Bromide 50 MG/5 ML VIAL 100 MG IVPUSH (18:45)
[2023-10-11 18:52] LABS: Band Neutrophils Percent 6 % (3-5); Basophils Abs Manual 0.2 X10*3/uL (0.0-0.2); Basophils Percent Manual 1 % (0-2); Lymphocytes Absolute Manual 1.4 X10*3/uL (1.2-4.9); Lymphocytes Percent Manual 6 % (20-40); Metamyelocytes Absolute 0.5 X10*3/uL; Metamyelocytes Percent 2 %; Neutrophils Absolute Manual 21.2 X10*3/uL (2.0-8.3); Neutrophils Percent Manual 85 % (45-73); Nucleated Red Blood Cells 1 /100WBC (0-0)
[2023-10-11 18:53] LABS: Large Platelet PRESENT; Platelet Estimate DECREASED (NORMAL); Platelet Morphology Comment NORMAL
[2023-10-11 18:54] LABS: Acanthocytes 1+ (0-2) /OIF; Smudge Cells PRESENT
[2023-10-11 18:57] LABS: RBC Morphology NOTED
[2023-10-11] MEDS: Sodium Bicarbonate 8.4% 150 MEQ in Dextrose 5 % 850 ML 100 MEQ IV (19:19)
[2023-10-11] MEDS: Piperacillin Sodium/Tazobactam 2.25 GM in 0.9 % Sodium Chloride 50 ML IV (19:29)
[2023-10-11] MEDS: vancomycin/NS 2,000 MG/500 ML PLAST..BAG 250 MG IV (19:30)
[2023-10-11 19:56] LABS: Reflex Lactate? Lactic Acid Added
--- NOTE | 2023-10-11 20:27 | P.HPCC_ITS ---
History of Present Illness Date of Service: 10/11/23 <DILIP Reed - Last Filed: 10/11/23 23:37> Attending physician on admission: Golden Myles <DILIP Reed - Last Filed: 10/11/23 23:37> Chief Complaint: Hypoxic Resp Failure/arrest; Covid19, HAPNA <DILIP Reed - Last Filed: 10/11/23 23:37> HPI: ?The patient is a 78-year-old female with underlying history of paroxysmal atrial fibrillation on Eliquis, chronic kidney disease stage 4, coronary disease of unknown details, type 2 diabetes, chronic pain syndrome, anxiety and depression, asthma, urinary incontinence, hyperlipidemia, hypertension, prior GI bleed, anemia of chronic disease, hydroureteronephrosis, right renal mass, renal cancer among others who had recently been admitted and discharged from [facility] as of yesterday. Patient presented to the emergency room today after being found by her family members on the ground this morning at home, last well known time was last night at 09:00 o'clock.? Apparently the patient did not recall how she ended up on the floor.? Patient had experienced some chest pain this morning which was no longer present in the ER.? Reported some shortness of breath. Her workup was significant for unstable vital signs tachycardia and tachypnea but otherwise initially normotensive on 10 in the morning, subsequently by 17:00, the patient decompensated, her initial white count was 17.2 with H and H of 9.831.3, initial electrolytes within normal limits with the exception of chloride of 109, creatinine at baseline at 2.68, troponin initially was 266 with a BNP of 1400.? Subsequently the patient suffered hypoxic respiratory failure and was intubated and then had a cardiac arrest and received CPR as well as ACLS related medications per protocol including multiple doses of epinephrine, bicarb, hydrocortisone, among others.? ROSC obtained after 35-40 minutes? She received 1 L of IV fluids to concern of CHF.? Also she was given TNK taking her respiratory arrest could be related to PE, given elevated troponins she was also started on heparin which was subsequently stopped for the patient started having bleeding from different areas her H&H did drop down currently a 6.7 and 22.6 respectively.? Her sodium went up to 157, creatinine 2.90, her lactic acid is 18.6, latest troponin of 936.? Blood cultures pending.? The patient is COVID-19 positive.? Urinalysis not done. Patient was placed on propofol and fentanyl for sedation, given aspirin, started on vancomycin and Zosyn for possible superimposed pneumonia, V/Q scan revealed low probability for pulmonary embolism.? Head CT and cervical spine CT showed no intracranial pathology or cervical spine pathology.? Chest x-ray shows endotracheal tube above 5 cm above the stalin with hypoinflated lungs and airspace disease right and left bases. Given that the patient had compromised state after a prolonged hospitalization and there was a concern that she may have underlying coronary artery disease and active heart issues requiring possible intervention, initially the patient was requested to be transferred to [facility] but the ER physician discussed the case with them, they did not think the patient needed to be transferred to their facility therefore was admitted to our services.? Given the above-mentioned bleeding, the patient is now receiving Kcentra for reversal of the heparin and TNK administration done earlier, she is also receiving a pack of platelets.? Repeat H and H is pending and type and cross has been done. <DILIP Reed - Last Filed: 10/11/23 23:37> Review of Systems 2 Review of Systems: intubated unobtainable <DILIP Reed - Last Filed: 10/11/23 23:37> PMFSH Past Medical History Medical History: Medical History (Updated 10/11/23 @ 20:32 by Chino Turner MD) Paroxysmal atrial fibrillation Chronic kidney disease CKD (chronic kidney disease) stage 4, GFR 15-29 ml/min CAD (coronary artery disease) History of myocardial infarction Type 2 diabetes mellitus with unspecified complications Multiple falls Arthritis Limited mobility Chronic pain Anxiety and depression Asthma Urgency incontinence High cholesterol Lateral malleolar fracture HTN (hypertension) <DILIP Reed - Last Filed: 10/11/23 23:37> Family History Family History: Family History Father No problems noted. Mother Diabetes High blood pressure Stomach cancer <DILIP Reed - Last Filed: 10/11/23 23:37> Surgical History Surgical History: Surgical History History of cystoscopy Hx of cholecystectomy History of cataract extraction History of heart artery stent Hx of colonoscopy H/O neck surgery <DILIP Reed - Last Filed: 10/11/23 23:37> Social History Social History: Social History Household Members: Family Housing: House Are you a primary healthcare market consultant to a significant other at home: No Do you presently have visiting nurse or other home services: Yes Unable to assess alcohol history related to: Unable to respond and Unknown Alcohol intake: never Patient Tobacco Use Status: Former Tobacco user Tobacco use type: Cigarette Years Smoked: 30-40 Smoked in Last 30 Days: No Second Hand Smoke Exposure: No Use of substances other than those prescribed or required for medical reasons: Unable to respond Substance Use Type: Crack/Cocaine Currently Displaying Signs/Symptoms of Drug Intoxication Withdrawal: No Advance Directives: Yes Advance Directives on File: Yes Advance Directives Date on File: 06/13/23 Recently lost weight without trying: Unsure Nutrition Risks: On aspiration precautions Patient : No service: No Current occupational status: disabled <DILIP Reed - Last Filed: 10/11/23 23:37> Meds Allergies/Adverse reactions: Allergies Allergy/AdvReac Type Severity Reaction Status Date / Time atorvastatin [ATORVASTATIN] Allergy Intermediate SWELLING Verified 10/11/23 10:44 morphine [MORPHINE] Allergy Intermediate RASH Verified 07/26/23 11:59 zolpidem [From AMBIEN] AdvReac Intermediate SLEEP WALKS Verified 07/26/23 11:59 <DILIP Reed - Last Filed: 10/11/23 23:37> Active Medications: Current Medications Heparin Sodium (Porcine) (Heparin Sodium,Porcine 5,000 Unit/Ml Vial) 4,100 unit 40 unit/kg (4100 unit) IVPUSH PROTOCOL BOLUS PRN; Protocol PRN Reason: 40 unit/kg - Heparin Protocol Heparin Sodium (Porcine) (Heparin Sodium,Porcine 5,000 Unit/Ml Vial) 8,100 unit 80 unit/kg (8100 unit) IVPUSH PROTOCOL BOLUS PRN; Protocol PRN Reason: 80 unit/kg - Heparin Protocol Hydrocortisone Sodium Succinate (Hydrocortisone Sod Succ/Pf 100 Mg Vial) 100 mg IVPUSH Q8H [facility] Heparin Sodium/Sodium Chloride (Heparin Sodium,Porcine/1/2ns) 25,000 unit in 250 mls @ 0 mls/hr IVCONT .Q0M [facility]; Protocol Last Titration: 10/11/23 17:52 Dose: 0 units/kg/hr, 0 mls/hr Fentanyl (Sublimaze/Ns) 1,000 mcg in 100 mls @ 0 mls/hr IVCONT .Q0M [facility]; Protocol Last Titration: 10/11/23 16:56 Dose: 50 mcg/hr, 5 mls/hr Sodium Bicarbonate 150 meq/ (Dextrose) 1,000 mls @ 100 mls/hr IV .Q10H [facility] CARMEN Last Admin: 10/11/23 19:19 Dose: 100 mls/hr Vancomycin HCl (Vancomycin/Ns) 2,000 mg in 500 mls @ 250 mls/hr IV ONCE ONE Stop: 10/11/23 20:59 Last Infusion: 10/11/23 20:25 Dose: 0 mls/hr Sodium Chloride (Ns) 100 mls @ 100 mls/hr IV ONCE ONE Stop: 10/11/23 20:50 Vasopressin (Vasostrict) 20 unit in 100 mls @ 3 mls/hr IVCONT .Q24H [facility] Sodium Chloride (Ns) 100 mls @ 100 mls/hr IV ONCE ONE Stop: 10/11/23 20:55 Piperacillin Sod/Tazobactam (Sod 2.25 gm/ Sodium Chloride) 50 mls @ 100 mls/hr IV Q6H [facility] EPINEPHrine/NS (Epinephrine/Ns) 5 mg in 250 mls @ 0 mls/hr IVCONT .Q0M [facility] CARMEN; Protocol Norepinephrine Bitartrate (Levophed) 8 mg in 250 mls @ 0 mls/hr IVCONT .Q0M [facility] CARMEN; Protocol Last Titration: 10/11/23 17:22 Dose: 2 mcg/kg/min, 380.63 mls/hr Remdesivir 200 mg/ Sodium (Chloride) 210 mls @ 105 mls/hr IV ONCE ONE Stop: 10/11/23 23:59 Remdesivir 100 mg/ Sodium (Chloride) 230 mls @ 115 mls/hr IV Q24H [facility]MEN Stop: 10/15/23 23:59 Midazolam HCl (Versed) 50 mg in 50 mls @ 2 mls/hr IVCONT .Q24H [facility] Phytonadione 10 mg/ Sodium (Chloride) 51 mls @ 51 mls/hr IV ONCE ONE Stop: 10/11/23 21:21 Albumin Human (Kedbumin 25 %) 100 mls @ 133.333 mls/hr IV Q1H [facility]MEN Stop: 10/11/23 22:14 Naloxone HCl (Naloxone Hcl 0.4 Mg/Ml Vial) 0.2 mg IVPUSH Q2M PRN PRN Reason: Excessive sedation or RR < 8 Pharmacy Consult (Consult Rx Vancomycin Dosing) 1 each MISCELLANE DAILY PRN PRN Reason: Consult order <DILIP Reed - Last Filed: 10/11/23 23:37> Home medications: Home Medications ?Medication ?Instructions ?Recorded ?Confirmed ?Last Taken ?Type lancing device with lancets kit #1 ea 03/24/21 08/22/23 Unknown History ([facility] Lancing Device kit) albuterol sulfate 90 mcg/actuation 2 puff inhalation QID PRN 11/30/21 08/22/23 Unknown History aerosol inhaler Respiratory Distress insulin lispro 100 unit/mL See Protocol subcut TIDAC 06/09/22 08/22/23 Unknown History subcutaneous pen (Humalog KwikPen (U-100) Insulin) acetaminophen 650 mg 650 mg PO TID 06/13/23 08/22/23 Unknown History tablet,extended release duloxetine 60 mg capsule,delayed 60 mg PO DAILY 06/13/23 08/22/23 Unknown History release fluticasone furoate 100 1 inh inhalation DAILY 06/13/23 08/22/23 Unknown History mcg/actuation blister powder for inhalation (Arnuity Ellipta) insulin glargine 100 unit/mL (3 6 unit subcut BEDTIME 06/13/23 08/22/23 Unknown History mL) subcutaneous pen (Lantus Solostar U-100 Insulin) montelukast 10 mg tablet 10 mg PO BEDTIME 06/13/23 08/22/23 Unknown History rosuvastatin 20 mg tablet 20 mg PO BEDTIME 06/13/23 06/13/23 Unknown History estradiol 1 mg tablet 1 mg PO DAILY 06/23/23 08/22/23 Unknown History apixaban 5 mg tablet (Eliquis) 5 mg PO BID 07/03/23 08/22/23 Unknown History <DILIP Reed - Last Filed: 10/11/23 23:37> Physical Exam 2 Vital Signs: Vital Signs: Last Vital Signs Temp 97.8 F 10/11/23 14:57 Pulse 110 H 10/11/23 17:22 Resp 17 10/11/23 16:56 BP 44/26 L 10/11/23 17:22 Pulse Ox 98 10/11/23 14:57 O2 Del Method Room Air 10/11/23 14:57 FiO2 70 10/11/23 19:40 Oxygen Flow Rate 2 10/11/23 10:40 BMI result Body Mass Index 37.2 <DILIP Reed - Last Filed: 10/11/23 23:37> Sepsis exam done at 09:30 p.m. [facility] SET[facility] : AC, 22, 340, 5, 60% FiO2 ? General:? Sedated on a ventilator ? Skin:? Right femoral triple-lumen in place with moderate amount of bleeding around the catheter despite pressure application, left radial a line placed in the ER does not appear to be working properly and upon removing the tape it appears to be out of the arterial artery and barely into the subcu tissue. Multiple ecchymotic areas and bleeding, blood noted in the endotracheal tube. ? No ulcers. ? HEENT:? Head is normocephalic, atraumatic, pupils pinpointed and nonreactive.? Neck thick, lymphadenopathy, no masses. ? Cardiac:? Clear S1-S2, no murmurs rubs or gallops. ? Pulmonary:? Coarse lung sounds bilaterally with crackles at the bases. ? Abdomen:? Protuberant, positive bowel sounds in all 4 quadrants.? Soft ? Musculoskeletal:? No bony abnormalities, on passive range of motion at the major joints there is no cogwheeling or crepitus, no calf asymmetry or edema of the legs.? ? Neurologic:? As above otherwise unable to asses ? Vascular:? 2+ pulses upper and lower extremities distally. 3-4 second capillary refill of the finger and toes bilaterally upper and lower extremities. <DILIP Reed - Last Filed: 10/11/23 23:37> Results Labs CBC and Chem 7: 10/11/23 21:45 10/11/23 21:45 <DILIP Reed - Last Filed: 10/11/23 23:37> Labs: Laboratory Results - last 24 hr 10/11/23 10/11/23 10/11/23 11:32 12:41 14:01 MCV 90.7 90.2 MCH 28.4 28.1 MCHC 31.3 31.1 RDW 16.4 H 16.2 H Plt Count 563 H D 530 H MPV 10.4 10.0 Immature Gran % (Auto) 1.9 H Neut % (Auto) 88.7 H Lymph % (Auto) 3.3 L [place] % (Auto) 5.8 Eos % (Auto) 0.0 Baso % (Auto) 0.3 Lymph # (Auto) 0.6 L [place] # (Auto) 1.0 Eos # (Auto) 0.0 Baso # (Auto) 0.1 Abs Immat Gran (auto) 0.33 H Absolute Neuts (auto) 15.2 H Absolute Nucleated RBC 0.000 0.000 Nucleated RBC % (auto) 0.0 0.0 Neutrophils % (Manual) Band Neutrophils % Lymphocytes % (Manual) Basophils % (Manual) Metamyelocytes % Abs Neuts (Manual) Lymphocytes # (Manual) Basophils # (Manual) Metamyelocytes # Nucleated RBCs Smudge Cells Platelet Estimate Large Platelets Plt Morphology Comment RBC Morphology Acanthocytes (Spur) PT 15.0 H 14.6 H INR 1.2 H 1.2 H APTT 27.1 aPTT Heparin Protocol 29.8 L O2 Saturation ABG pH at Pt Temp ABG pCO2 at Pt Temp ABG pO2 at Pt Temp ABG HCO3 ABG Base Excess (Actual) VBG pH VBG pCO2 VBG pO2 VBG HCO3 VBG O2 Saturation VBG Base Excess Anion Gap 18 Estim Creat Clear Calc 21.1 Estimated GFR 17 Random Glucose 184 H Lactic Acid Calcium 9.0 D Magnesium 2.2 Total Bilirubin 0.5 AST 15 ALT 6 Alkaline Phosphatase 113 Total Creatine Kinase 94 Troponin I High Sens 266.2 H* D 410.0 H* D B-Natriuretic Peptide 1401 H Total Protein 8.0 Albumin 3.3 L Influenza Type A (PCR) NEGATIVE Influenza Type B (PCR) NEGATIVE RSV RNA Qual (PCR) NEGATIVE SARS-CoV-2 RNA (RT-PCR) POSITIVE A Blood Type Antibody Screen Crossmatch 10/11/23 10/11/23 10/11/23 17:01 17:52 17:58 MCV 96.6 D MCH 28.6 MCHC 29.6 L RDW 16.7 H Plt Count 131 L D MPV 8.6 L Immature Gran % (Auto) Cancelled Neut % (Auto) Cancelled Lymph % (Auto) Cancelled [place] % (Auto) Cancelled Eos % (Auto) Cancelled Baso % (Auto) Cancelled Lymph # (Auto) Cancelled [place] # (Auto) Cancelled Eos # (Auto) Cancelled Baso # (Auto) Cancelled Abs Immat Gran (auto) Cancelled Absolute Neuts (auto) Cancelled Absolute Nucleated RBC 0.080 H Nucleated RBC % (auto) 0.3 H Neutrophils % (Manual) 85 H Band Neutrophils % 6 H Lymphocytes % (Manual) 6 L Basophils % (Manual) 1 Metamyelocytes % 2 Abs Neuts (Manual) 21.2 H Lymphocytes # (Manual) 1.4 Basophils # (Manual) 0.2 Metamyelocytes # 0.5 Nucleated RBCs 1 H Smudge Cells PRESENT Platelet Estimate DECREASED Large Platelets PRESENT Plt Morphology Comment NORMAL RBC Morphology NOTED Acanthocytes (Spur) 1+ (0-2) PT 18.5 H D INR 1.5 H APTT 103.1 H* D aPTT Heparin Protocol O2 Saturation 99.0 ABG pH at Pt Temp 7.23 L ABG pCO2 at Pt Temp 65 H* ABG pO2 at Pt Temp 281 H ABG HCO3 28 H ABG Base Excess (Actual) -0.5 VBG pH 7.15 L* VBG pCO2 59 VBG pO2 45 VBG HCO3 21 L VBG O2 Saturation 54.0 VBG Base Excess -7.3 Anion Gap 34 H Estim Creat Clear Calc 19.5 Estimated GFR 16 Random Glucose 167 H Lactic Acid 18.6 H* Calcium 10.9 H D Magnesium 2.7 H Total Bilirubin AST ALT Alkaline Phosphatase Total Creatine Kinase Troponin I High Sens 936.4 H* D B-Natriuretic Peptide Total Protein Albumin Influenza Type A (PCR) Influenza Type B (PCR) RSV RNA Qual (PCR) SARS-CoV-2 RNA (RT-PCR) Blood Type O Positive Antibody Screen NEGATIVE Crossmatch See Detail <DILIP Reed - Last Filed: 10/11/23 23:37> Imaging Radiologist's Impressions: Impressions Head CT 10/11/23 11:07 IMPRESSION: No acute intracranial pathology. Electronically signed by: Jayme Chairez MD 10/11/2023 12:22 PM EDT RP Cervical Spine CT 10/11/23 11:10 IMPRESSION: No fracture. See above comments. Fleischner guidelines were followed. Electronically signed by: Jayme Chairez MD 10/11/2023 12:02 PM EDT RP Pulmonary Perfusion Imaging 10/11/23 13:15 IMPRESSION: Based on perfusion only modified PIOPED 2 criteria, pulmonary thromboembolism is absent. This critical result was discussed with Mylene CHERRY at 4:29 PM on 10/11/2023 and it was ascertained that the content and urgency of the report was understood at the time of direct communication. The need for chest radiograph was discussed at the time of direct communication. Electronically signed by: Austin Rosales MD 10/11/2023 04:33 PM EDT RP Chest X-Ray 10/11/23 15:49 IMPRESSION: 1. ET tube about 5 cm above the stalin. 2. Hypoinflated lungs with airspace disease on the right and left lung base. Electronically signed by: Ramesh Winchester MD 10/11/2023 07:34 PM EDT RP <DILIP Reed - Last Filed: 10/11/23 23:37> Assessment and Plan (1) Cardiac arrest: Status: Acute <DILIP Reed - Last Filed: 10/11/23 23:37> ASSESSMENT: 1.? Acute hypoxic respiratory failure leading to intubation 2.? Post intubation cardiac arrest with PEA 3.? COVID-19 pneumonia 4.? Suspected bilateral superimposed bacterial hospital-acquired pneumonia (given recent admission based [facility] ) 5.? Acute on chronic anemia of acute blood loss post heparin and TNK administration 6.? Troponin elevation likely stress myopathy but I can not rule out NSTEMI 7.? Reactive versus infective leukocytosis 8.? Iatrogenic thrombocytopenia 9.? Acute respiratory acidosis with hypercarbia state 10.?? Poor perfusion related lactic acidosis 11.?? Sirs/underlying early sepsis 12.?? Chronic kidney disease stage 4 13.?? Anion gap acidosis 14.?? Hypoalbuminemia 15. Renal cell carcinoma post recent resection and radiotherapy at [facility] PLAN OF CARE: Admit to ICU, COVID isolation, vital signs, I's and O's, we will place the patient on Levophed and vasopressin, albumin administration at 133 cc per hour, patient not a candidate for 30 mL per kg of crystalloids given the concern for CHF. hydrocortisone, blood cultures pending, urinalysis ordered, start her on vancomycin and Zosyn, sputum culture and Gram stain, will start her on remdesivir, will need a Infectious Disease consult.? We will repeat laboratories tonight and tomorrow as well as blood gas, bicarb replacement and electrolyte replacement as needed.? Monitor H&H closely, will place her on PPI b.i.d., repeat troponins and order transthoracic echo for the morning.? Avoid diuresis or nephrotoxins, any other medications can be renally adjusted.? Insulin sliding scale. GI PROPHYLAXIS: ?IV ppi DVT PROPHYLAXIS: ?Pneumatic stockings only Clinical update 22:30 Despite of our efforts, the patient continues to decompensate, her repeated H&H after 1 unit of blood and platelets has gone down to 5.7 and 18 respectively, she continues to bleed from multiple sites including the right femoral catheter area. The a line was replaced by me please see procedure for details, for this was completely out and nonfunctioning. Patient will need at least 2-3 more units of packed red blood cells, she is currently on 3 pressors including Levophed, epinephrine and vasopressin which is barely getting her blood pressure to be 90/50 At this point I also had a lengthy discussion almost 20 minutes were spent discussing with the patient's daughter who is in the hospital about the current clinical scenario and asked her to bring her other daughter in who is the 2nd healthcare proxy so that we can talk about goals of care; at this point, we did agree that if the patient was to have further complications such as a repeated cardiac arrest, she would not want any further artificial resuscitation with CPR therefore she will be DNR. Critical care time used for critical evaluation of this patient, diagnosis, treatment and coordination of care, review her records and documentation TOTAL CRITICAL CARE TIME 120 MIN . discussion and coordination with consultants, completely separate from any procedures performed. . Patient's care was discussed in detail with Dr. Myles.? He is aware of all the above as well as the plan of care for this patient. . <DILIP Reed - Last Filed: 10/11/23 23:37> ASSESSMENT: 1.? Acute hypoxic respiratory failure leading to intubation 2.? Post intubation cardiac arrest with PEA 3.? COVID-19 pneumonia 4.? Suspected bilateral superimposed bacterial hospital-acquired pneumonia (given recent admission based [facility] ) 5.? Acute on chronic anemia of acute blood loss post heparin and TNK administration 6.? Troponin elevation likely stress myopathy but I can not rule out NSTEMI 7.? Reactive versus infective leukocytosis 8.? Iatrogenic thrombocytopenia 9.? Acute respiratory acidosis with hypercarbia state 10.?? Poor perfusion related lactic acidosis 11.?? Sirs/underlying early sepsis 12.?? Chronic kidney disease stage 4 13.?? Anion gap acidosis 14.?? Hypoalbuminemia 15. Renal cell carcinoma post recent resection and radiotherapy at [facility] PLAN OF CARE: Admit to ICU, COVID isolation, vital signs, I's and O's, we will place the patient on Levophed and vasopressin, albumin administration at 133 cc per hour, patient not a candidate for 30 mL per kg of crystalloids given the concern for CHF. hydrocortisone, blood cultures pending, urinalysis ordered, start her on vancomycin and Zosyn, sputum culture and Gram stain, will start her on remdesivir, will need a Infectious Disease consult.? We will repeat laboratories tonight and tomorrow as well as blood gas, bicarb replacement and electrolyte replacement as needed.? Monitor H&H closely, will place her on PPI b.i.d., repeat troponins and order transthoracic echo for the morning.? Avoid diuresis or nephrotoxins, any other medications can be renally adjusted.? Insulin sliding scale. Neuro: Acute encephalopathy possibly due to metabolic encephalopathy however underlying hypoxic ischemic injury to the brain can not be ruled out given 45 minutes of down time On Versed for sedation, as needed fentanyl for analgesia Close neurological status monitoring in the ICU every hour Cardiac: Cardiac arrest: Possibly secondary to the cardiac event, PE cardiac arrest downtime of about 45 minutes Bedside echo showing poor cardiac contractility Based at [facility] [place] was called in for transfer as the patient possibly needs cardiac interventions but they refused transfer. Troponin increased from 200 to 400s prior to the code Patient received TNK during the code, and is profusely oozing from different sites including the GI and the lines so we will withhold on heparin for now. Shock: Possibly secondary to cardiogenic shock. Bedside echo showed very poor cardiac contractility especially in the lateral garcia, LV bulge towards the RV, RV collapsing IVC small. Patient is given 2 L of fluid bolus after the echo. However lung ultrasound showed bilateral lung base consolidations with effusion seen in the left lung base, possibility of septic shock could not be ruled out On Levophed and epinephrine support to keep map above 65 mm Hg. We will switch the epinephrine to vasopressin and we will add phenylephrine Respiratory: Acute hypoxemic respiratory failure due to ARDS from COVID-19 pneumonia. Bedside ultrasound shows for lung platelets consolidation, left lung base consolidation with effusion Currently on ventilator support On PRVC mode FiO2[70%], PEEP 5, TV 400, RR 20 Peak pressures and plateau pressures are under the curve Ventilator management bundle with head end elevation, aspiration precaution, chlorhexidine mouthwash, daily awakening trials, daily spontaneous breathing trials GI: We will start on tube feeds Renal: Acute on chronic kidney injury possibly secondary to ATN from shock and cardiac arrest, has a longstanding CKD with possible renal mass Baseline creatinine normal, creatinine today is We will closely monitor I's and O's Avoid nephrotoxic medications Heme: Chronic anemia, closely monitor H&H, transfuse for hemoglobin less than 7 grams/deciliter Endocrine: Blood sugars under control Sliding scale insulin as needed Infectious disease: We will send pancultures We will start on empiric Zosyn and vancomycin while waiting for the cultures Musculoskeletal: Decubitus ulcer prevention protocol Lines: Right femoral art line and central lines Prophylaxis: Lovenox, pantoprazole Critical care time spent is about 90 minutes on stabilizing this critically ill patient on multiple vasopressor support, multiple organ failure including cardiac arrest, cardiogenic shock, acute on chronic kidney disease, acute respiratory failure, acute encephalopathy time spent is mainly on post resuscitation management, managing patient's multiple vasopressor support, ventilator support, changing ventilator settings, close hemodynamic monitoring, close neurological status monitoring, multiple transfusion managing the bleedings from multiple sites, bedside echo and bedside ultrasound to guide the clinical management at this time is excluding procedural time. GI PROPHYLAXIS: ?IV ppi DVT PROPHYLAXIS: ?Pneumatic stockings only Clinical update 22:30 Despite of our efforts, the patient continues to decompensate, her repeated H&H after 1 unit of blood and platelets has gone down to 5.7 and 18 respectively, she continues to bleed from multiple sites including the right femoral catheter area. The a line was replaced by me please see procedure for details, for this was completely out and nonfunctioning. Patient will need at least 2-3 more units of packed red blood cells, she is currently on 3 pressors including Levophed, epinephrine and vasopressin which is barely getting her blood pressure to be 90/50 At this point I also had a lengthy discussion almost 20 minutes were spent discussing with the patient's daughter who is in the hospital about the current clinical scenario and asked her to bring her other daughter in who is the 2nd healthcare proxy so that we can talk about goals of care; at this point, we did agree that if the patient was to have further complications such as a repeated cardiac arrest, she would not want any further artificial resuscitation with CPR therefore she will be DNR. Critical care time used for critical evaluation of this patient, diagnosis, treatment and coordination of care, review her records and documentation TOTAL CRITICAL CARE TIME 120 MIN . discussion and coordination with consultants, completely separate from any procedures performed. . Patient's care was discussed in detail with Dr. Myles.? He is aware of all the above as well as the plan of care for this patient. . <Golden Myles MD - Last Filed: 10/12/23 10:50> Total time managing care of this patient today: 90 minutes. <Golden Myles MD - Last Filed: 10/12/23 10:50>
[2023-10-11] MEDS: Vasopressin 20 UNIT/100 ML INFUS..BTL 3 UNIT IVCONT (20:37)
[2023-10-11] MEDS: Hum Prothrombin Cplx(PCC)4Fact 2,000 UNIT in Container,Empty 0 ML 480 UNIT IV (20:46)
--- NOTE | 2023-10-11 21:45 | PC.NURSE ---
Pt BP via ART , provider Dr. Turner made aware, order to increase Levophed to 3 mcg and Vasopressin to 0.02 units/min at 2056.
--- NOTE | 2023-10-11 21:47 | PHA.PROG ---
Admission Date/Time: October 11, 2023 19:53 Indication: RESPIRATORY Weight in k.5 kg Adjusted body weight in Kg: [place] body weight in Kg: Obesity Dosing Indication % IBW: Serum Creatinine - Last 168 Hours 10/11/23 10/11/23 11:32 17:52 Creatinine 2.68 H 2.90 H Estimated CrCl and GFR - Last 168 Hours 10/11/23 10/11/23 11:32 17:52 Estim Creat Clear Calc 21.1 19.5 Estimated GFR 17 16 Vancomycin Loading Dose: 2000 MG Current Vancomycin Dosing Regimen: 750 MG Q24H Vancomycin Monitoring using AUC goal of 400 - 600 range with trough as surrogate marker: QWX=877 TROUGH=19.7 Date and Time for next Vancomycin Level to be drawn: 10/13/23 @1800 Pharmacist Comments on Vancomycin Plan: Vancomycin dosing will take advantage of [employer] as a clinical decision support tool that uses Bayesian modeling to calculate individual patient's pharmacokinetic parameters and forecast the patient's drug concentration time course with the target goal AUC 24 range of 400 - 600 mg/L/hr.
--- NOTE | 2023-10-11 21:50 | PC.NURSE ---
At 1535 the pt reported that she was having trouble breathing. The pt was sat up and the sat probe placed. Spo2 in mid 90s. Pt said she could not breath. I approached Dr. Turner for his assistance. We both reentered the room and thee pt continued to be in respiratory distress. RSI kit was obtained, respiratory was called and the pt was intubated. Meds given 1542 20 mg etomidate 1542 100mg succinylcholine OG tube placed NT tube 7.0 22@ the teeth 1550 propofol started 20mcg/kg We then prepared to start a belcher when the patients HR was noted to drop considerably on tele and CPR started 1552 no pulse, CPR started 1554 1mg epi 1556 50meq bicarb 1557 pulse check, no pulse found, CPR resumed 1602 1mg epi 1605 pulse check, no pulse found, no cardiac activity on ultrasound, resume CPR 1606 1mg epi 160[address] Turner gave a verbal order for TNK and it was obtained from the [facility]. At bedside, he ordered 50mg TNK IV push. Dr. Turner pushed 50mg TNK 1607 - 50meq Sodium bicarb 1610 pulse check, back board placed, no pulse found, CPR resumed 1610 1mg epi 1611 50meq bicarb 1613 1g calcium amp 1614 pulse check, no pulse found, CPR resumed 1614 1mg epi 1615 50meq sodium bicarb 1618 pulse check, no pulse found, CPR resumed 1618 1mg epi 1620 50meqbicarb 1g calcium 1622 pulse check, faint pulse found femoral with doppler 1623 1mg epi CPR halted, ROSC was achieved but pulses were lost again and CPR resumed 1627 CPR resumed 1627 1mg epi 1629 50meq sodium bicarb 1629 1gm calcium 1631 pulse check, no pulse, CPR resumed 1632 150mg Amiodarone 1632 50meq bicarb 1634 Pulse check, faint bilat femoral pulses. CPR halted, ROSC 1635 300mg Amiodarone 1640 - propafol stopped 1643 Fentanyl drip started 25mcg/hr 1646 Epinephrin drip started at 0.2 mcg.kg/hr. 5mg of Epinephrin were mixed into D5W according to bass fisher in Medroom 1645 epi drip stopped, no pulse was found, CPR resumed 164 1mg epi IVP 164 50meq sodium bicarb 165 pulse check - ROSC was acheived 1651 Epi drip hung again 0.2mcg/kg/min 165 fentanyl drip titrated to 50mcg/hr per verbal bedside order from Dr. Turner 1700 Dr. Turner started working on an A line. Sangita was placed at 1716. An RN from the ICU was called to set up the A line. While she was here, drips were titrated at some unknown times. 171 Norepi drip started at 0.8 mcg/kg/hr. The starting dose of Norepi was verbally ordered by Dr. Turner at bedside. It was communicated to him that protocol is to start at 0.5 according to MAR. 1721 500ml bolus NS 1722 Norepi drip increased to 2.0mcg/kg/hr per MD 1722 epi titrated up to .8 mcg/kg/hr per MD 1730 epi drip 1.2mg/kg/hr by PROJ MGR 1743 central line placed right femoral 1845 100mg Godwin ordered by inpatient feed mill manager to adjust ET tube From 1717 when the noreip drip was started to 2104 when the pt went to ICU, 5 bags of norepi were administered as a continuous drip. Some of these bag changes are unable to be added to the MAR. Rate stayed at 2 mcg/kg/hr as indicated in MAR until Dr. Turner verbally ordered an increase to 3mcg//kg/hr due to Hypotension. This titration is charted in the MAR. From 1645 to when vasopressin was started at 2036, 3 bags of 5mg Epinephrine in D5 were hung. These were per verbal order by Dr. Turner, 5mg in D5W is the protocol hanging on the bass fisher in the medroom. These were hung as continuous drip. They have not been able to be added to the MAR. titrations are listed above. The ending rate was 1.2mcg/kg/hr as titrated by the resource PROJ MGR. right before transport to ICU, pt was hypotensive systolic 50s over diastolic 40s. per verbal order by Dr. Turner, increase vasopressin to 0.02 units per minute and Norepi to 3mcg/kg/hr pt went to ICE with RN, tech and RT at 2105
[2023-10-11] MEDS: EPINEPHrine/NS 5 MG/250 ML PLAST..BAG 60.9 MG IVCONT (21:52)
[2023-10-11 21:53] LABS: VBG HCO3 11 mmol/L (22-26); VBG pCO2 41 mmHg; VBG pH 7.02 (7.32-7.43); VBG pO2 37 mmHg
[2023-10-11] MEDS: Albumin Human 25 % 100 ML 133.33 ML IV ×2 (21:54→22:24)
[2023-10-11] MEDS: Phytonadione (Vit K1) 10 MG in 0.9 % Sodium Chloride 50 ML 51 MG IV (22:02)
[2023-10-11] MEDS: Norepinephrine Bitartrate/NS 32 MG/250 ML PLAST..BAG 47.58 MG IVCONT (22:05)
[2023-10-11] MEDS: Pantoprazole Sodium 40 MG/10 ML VIAL IVPUSH (22:12)
[2023-10-11 22:16] LABS: Mean Corpuscular HGB Conc 28.9 g/dl (31.0-35.0); Mean Corpuscular Hemoglobin 29.2 pg (27.0-33.0); Mean Corpuscular Volume 101.1 fL (80.0-98.0); Mean Platelet Volume 10.4 fL (9.4-12.3); NRBC Pct Auto 0.4 /100WBC (0.0-0.2); Platelet Count 205 X10*3/uL (160-400); Red Blood Count 1.85 X10*6/uL (4.20-5.50); Red Cell Distribution Width 16.6 % (11.0-16.0)
[2023-10-11 22:18] LABS: Hematocrit 18.7 % (37.0-47.0); Hemoglobin 5.4 g/dl (12.0-16.0); White Blood Count 34.3 X10*3/uL (4.8-10.8)
[2023-10-11 22:25] LABS: ~Lactic Acid-LAB USE ONLY 25.8 mmol/L (0.5-2.0)
[2023-10-11 22:28] LABS: Alanine Aminotransferase 533 U/L (0-31); Albumin Level 1.6 g/dL (3.5-5.0); Alkaline Phosphatase 236 U/L (39-117); Anion Gap 35 (12-20); Aspartate Amino Transferase 1393 U/L (5-31); Bilirubin Total 0.7 mg/dL (0.0-1.0); Blood Urea Nitrogen 39 mg/dL (9-16); Calcium 8.5 mg/dL (8.4-10.2); Carbon Dioxide 12 mmol/L (22-29); Chloride 104 mmol/L (96-108); Estimated Glomerular Filt Rate 16; Glucose Random 352 mg/dL (60-115); Potassium 4.5 mmol/L (3.3-5.1); Sodium 146 mmol/L (135-145); Total Protein 3.9 g/dL (6.5-8.0)
[2023-10-11] MEDS: Remdesivir 200 MG in 0.9 % Sodium Chloride 210 ML 105 MG IV (22:29)
[2023-10-11] MEDS: EPINEPHrine/NS 5 MG/250 ML PLAST..BAG 609 MG IVCONT ×4 (22:34→23:57)
[2023-10-11 22:36] LABS: Atypical Lymph Absolute Manual 0.3 x10*3/uL; Atypical Lymphs Percent Manual 1 % (0-6); Band Neutrophils Percent 12 % (3-5); Lymphocytes Absolute Manual 3.4 X10*3/uL (1.2-4.9); Lymphocytes Percent Manual 10 % (20-40); Metamyelocytes Absolute 0.7 X10*3/uL; Metamyelocytes Percent 2 %; Monocytes Percent Manual 3 % (2-11); Neutrophils Absolute Manual 28.8 X10*3/uL (2.0-8.3); Neutrophils Percent Manual 72 % (45-73); RBC Morphology NOTED
[2023-10-11 22:37] LABS: Acanthocytes 2+ (3-5) /OIF
[2023-10-11 22:39] LABS: Procalcitonin 0.55 ng/mL
[2023-10-11 22:40] LABS: Large Platelet PRESENT; Platelet Estimate DECREASED (NORMAL); Platelet Morphology Comment NOTED
[2023-10-11 22:50] LABS: PTT Heparin Drip 179.5 SEC (53-77.9)
--- NOTE | 2023-10-11 23:25 | P.ACPN_ITS ---
Advanced Care Planning Note Advanced Care Planning Note Discussed with: family member(s) (3 daughters including 2 HCP) Time spent (in minutes): 30 Narrative: I had a very lengthy discussion with the patient's daughters, grandchildren and other siblings present in regards to this patient's current condition. 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 All of the leading events were discussed in detail including the fact that she was found down with last well known time as of yesterday evening at 21:00, leading to her visit today in the ER where she had mentioned she had had chest pain, shortness of breath, became hypoxic leading to intubation and subsequently having a cardiac arrest obtaining ROSC between 40-45 minutes later. The patient did receive TNK and heparin, subsequently developed significant bleeding and anemia, has received 1 unit of packed red blood cells and platelets, currently on 3 pressors, receiving albumin among multiple other medications including bicarbonate. Patient is COVID positive. All of the above and more was discussed in detail with them, explanation of laboratories and results among multiple other questions were answered. The consensus was that this is not something that the patient would have wanted as they have had discussions about this recently and they are not okay with pursuing further treatment in the ICU care, keeping her intubated or continuing with current treatment for this is not something that they want for their mom, they are aware that she must have suffered, that the chances of recovering from these is not a good 1 as well as her quality of life has not been the best home. At this point, they would like us to stop everything that we are doing and make her comfortable. Patient will go through a terminal extubation later on after all the family members are able to go into the room and say their goodbyes. Further transfusion has been canceled. Critical care time used for critical evaluation of this patient, diagnosis, treatment and coordination of care, review her records and documentation TOTAL CRITICAL CARE TIME 30 MIN . discussion and coordination with consultants, completely separate from any procedures performed. . Patient's care was discussed in detail with Dr. Myles. He is aware of all the above as well as the plan of care for this patient..
--- NOTE | 2023-10-11 23:31 | W.PM.CCHP ---
Procedures Date of Service Date of Service: 10/11/23 Arterial Line Consent: Emergent-no informed consent obtained Sterile Technique Used: Yes Time out performed: Yes Size (Gauge): 20 Technique used: direct puncture technique Post-Procedure: line sutured into place and dry sterile dressing placed Patient tolerated procedure: well and no complications Complications: none Site: right and radial (Connected to a line device, properly set up and good wave laura and readings)
[2023-10-11 23:37] LABS: Venous Blood Gas Refer to POC result
--- NOTE | 2023-10-11 23:40 | HO.HCP_ITS ---
Health Care Proxy Invocation Health Care Proxy Declaration: Kelechi Marrero PAC , on the date cited below, have determined that, Mrs MALLY DE LA ROSA, lacks the capacity to make or communicate, informed health care decision. This determination is made in accordance with accepted standards of medical judgment and pursuant to [place], the [place] Health Care Proxy Law. The cause, nature, extent and probable duration of the patient's inapacity are described below: Cause: NO NEURO REACTION DESPITE NOT BEING ON SEDATION/INTUBATED Nature: RESPIRATORY AND CARDIAC ARREST Extent: MODERATE Probable Duration of Patient's Incapacity:UNKNOWN discussed with pt's HCP her daughter Batool De La Rosa. Viktoriya Wiggins and mally Wiggins, who have , made the desicion to make the patient [employer]
[2023-10-11 23:56] LABS: Reflex Lactate? 2 Y
[2023-10-12] VITALS: BP 77/49; BP 78/50; PULSE 57; PULSE 60; RESP 22; O2SAT 88
[2023-10-12] MEDS: EPINEPHrine/NS 5 MG/250 ML PLAST..BAG 609 MG IVCONT (00:23)
[2023-10-12 00:45] VITALS: BP 59/40; PULSE 43
[2023-10-12] MEDS: fentaNYL citrate/PF 100 MCG/2 ML VIAL IVPUSH (00:58)
--- NOTE | 2023-10-12 01:11 | P.DS_ITS ---
DS: Providers Provider Date of Service: 10/12/23 <DILIP Reed - Last Filed: 10/12/23 01:14> Date of admission: 10/11/23 19:53 <DILIP Reed - Last Filed: 10/12/23 01:14> Date of discharge: 10/12/23 <DILIP Reed - Last Filed: 10/12/23 01:14> Primary care physician: Janet Phelan MD <DILIP Reed - Last Filed: 10/12/23 01:14> Admitting clinician: Golden Myles <DILIP Reed - Last Filed: 10/12/23 01:14> Attending physician on admission: Golden Myles <DILIP Reed - Last Filed: 10/12/23 01:14> Attending physician on discharge: Golden Myles <DILIP Reed - Last Filed: 10/12/23 01:14> Discharging clinician: Kelechi Helton <DILIP Reed - Last Filed: 10/12/23 01:14> DS: Diagnosis Discharge Diagnosis (1) Cardiac arrest: Status: Acute <DILIP Reed - Last Filed: 10/12/23 01:14> DS: Summary Time Attestation Total time managing care of this patient today: 60 mintues. <DILIP Reed - Last Filed: 10/12/23 01:14> Discharge Coordination Time (in mins): ADMISSION/DISCHARGE DIAGNOSES: 1.? Acute hypoxic respiratory failure leading to intubation 2.? Post intubation cardiac arrest with PEA 3.? COVID-19 pneumonia 4.? Suspected bilateral superimposed bacterial hospital-acquired pneumonia (given [facility] ) 5.? Acute on chronic anemia of acute blood loss post heparin and TNK administration 6.? Troponin elevation likely stress myopathy but I can not rule out NSTEMI 7.? Reactive versus infective leukocytosis 8.? Iatrogenic thrombocytopenia 9.? Acute respiratory acidosis with hypercarbia state 10.?? Poor perfusion related lactic acidosis 11.?? SIRS/Early Sepsis 12.?? Chronic kidney disease stage 4 13.?? Anion gap acidosis 14.?? Hypoalbuminemia 15. Renal cell carcinoma post recent resection and radiotherapy at [facility] Reason of : ?Multi organ failure post respiratory and cardiac arrest in the setting of COVID-19 infection, sepsis ?HPI/HOSPITAL COURSE: The patient is a 78-year-old female with underlying history of paroxysmal atrial fibrillation on Eliquis, chronic kidney disease stage 4, coronary disease of unknown details, type 2 diabetes, chronic pain syndrome, anxiety and depression, asthma, urinary incontinence, hyperlipidemia, hypertension, prior GI bleed, anemia of chronic disease, hydroureteronephrosis, right renal mass, renal cancer among others who had recently been admitted and discharged from [facility] as of yesterday. Patient presented to the emergency room today after being found by her family members on the ground this morning at home, last well known time was last night at 09:00 o'clock.? Apparently the patient did not recall how she ended up on the floor.? Patient had experienced some chest pain this morning which was no longer present in the ER.? Reported some shortness of breath. Her workup was significant for unstable vital signs tachycardia and tachypnea but otherwise initially normotensive on 10 in the morning, subsequently by 17:00, the patient decompensated, her initial white count was 17.2 with H and H of 9.831.3, initial electrolytes within normal limits with the exception of chloride of 109, creatinine at baseline at 2.68, troponin initially was 266 with a BNP of 1400.? Subsequently the patient suffered hypoxic respiratory failure and was intubated and then had a cardiac arrest and received CPR as well as ACLS related medications per protocol including multiple doses of epinephrine, bicarb, hydrocortisone, among others.? ROSC obtained after 35-40 minutes? She received 1 L of IV fluids to concern of CHF.? Also she was given TNK taking her respiratory arrest could be related to PE, given elevated troponins she was also started on heparin which was subsequently stopped for the patient started having bleeding from different areas her H&H did drop down currently a 6.7 and 22.6 respectively.? Her sodium went up to 157, creatinine 2.90, her lactic acid is 18.6, latest troponin of 936.? Blood cultures pending.? The patient is COVID-19 positive.? Urinalysis not done. Patient was placed on propofol and fentanyl for sedation, given aspirin, started on vancomycin and Zosyn for possible superimposed pneumonia, V/Q scan revealed low probability for pulmonary embolism.? Head CT and cervical spine CT showed no intracranial pathology or cervical spine pathology.? Chest x-ray shows endotracheal tube above 5 cm above the stalin with hypoinflated lungs and airspace disease right and left bases. Given that the patient had compromised state after a prolonged hospitalization and there was a concern that she may have underlying coronary artery disease and active heart issues requiring possible intervention, initially the patient was requested to be transferred to [facility] but the ER physician discussed the case with them, they did not think the patient needed to be transferred to their facility therefore was admitted to our services.? Given the above-mentioned bleeding, the patient is now receiving Kcentra for reversal of the heparin and TNK administration done earlier, she is also receiving a pack of platelets.? Patient was admitted to the ICU, COVID isolation, vital signs, I's and O's, we will place the patient on Levophed and vasopressin, albumin administration at 133 cc per hour, patient not a candidate for 30 mL per kg of crystalloids given the concern for CHF. hydrocortisone, blood cultures pending, urinalysis ordered, start her on vancomycin and Zosyn, sputum culture and Gram stain, will start her on remdesivir, will need a Infectious Disease consult.? We will repeat laboratories tonight and tomorrow as well as blood gas, bicarb replacement and electrolyte replacement as needed.? Monitor H&H closely, will place her on PPI b.i.d., repeat troponins and order transthoracic echo for the morning.? Avoid diuresis or nephrotoxins, any other medications can be renally adjusted.? Insulin sliding scale. Despite of our efforts, the patient continues to decompensate, her repeated H&H after 1 unit of blood and platelets has gone down to 5.7 and 18 respectively, she continues to bleed from multiple sites including the right femoral catheter area. The a line was replaced by me please see procedure for details, for this was completely out and nonfunctioning. Patient will need at least 2-3 more units of packed red blood cells, she is currently on 3 pressors including Levophed, epinephrine and vasopressin which is barely getting her blood pressure to be 90/50 At this point I also had a lengthy discussion almost 20 minutes were spent discussing with the patient's daughter who is in the hospital about the current clinical scenario and asked her to bring her other daughter in who is the 2nd healthcare proxy so that we can talk about goals of care; at this point, we did agree that if the patient was to have further complications such as a repeated cardiac arrest, she would not want any further artificial resuscitation with CPR therefore she will be DNR. 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 ?All of them were able to say their goodbyes. ?Amazingly the patient decompensated even further while still on maximum pressor support dropping her blood pressure and heart rate as well as her O2 sat despite of being intubated and ventilated. Medications were stopped at 1245 am on 10/12/2023; Patient was placed on fentanyl for comfort, if needed Ativan Intensol p.r.n. and scopolamine p.r.n. for secretions; terminal extubation was planned but the patient before this could happen. At? 0106 am asystole was noted on the monitor.? At this time, the patient has no heartbeat, no palpable pulses, pupils are fixed at 5 mm bilaterally, overall that anterior chamber and cornea of the eyes appear glossy, no spontaneous breathing.? There is no corneal reflexes bilaterally, capillary refill of the fingers and toes is significantly delayed.? Patient was pronounced at?0106 ?. Certificate Completed. Organ Center Called by RN.? Total time spent with the patient planning, coordinating, insuring a natural, non suffering and humane passing? as well as pronouncement evaluation, and this documentation was 60 minutes. Discussed in detail with Dr. Myles.? He is aware of all the above. <DILIP Reed - Last Filed: 10/12/23 01:14> Quality: Safe Use of Opioids Does Pt have an Active Cancer Diagnosis on the Problem List?: Yes <DILIP Reed - Last Filed: 10/12/23 01:14> Opioid Measure Date for CMS Report: 09/12/23 <DILIP Reed - Last Filed: 10/12/23 01:14> 09/12/23 <Golden Myles MD - Last Filed: 10/12/23 10:41> Opioid Measure Time for [facility] Report: 01:14 <DILIP Reed - Last Filed: 10/12/23 01:14> 10:31 <Golden Myles MD - Last Filed: 10/12/23 10:41> Quality: Stroke Does the patient have a stroke diagnosis?: No <DILIP Reed - Last Filed: 10/12/23 01:14> Physical Exam Vital Signs: Vital Signs: Last Vital Signs Temp 95.1 F L 10/11/23 20:44 Pulse 43 L 10/12/23 00:45 Resp 22 H 10/12/23 00:00 BP 59/40 L 10/12/23 00:45 Pulse Ox 88 L 10/12/23 00:00 O2 Del Method Mechanical Ventil ation 10/12/23 00:00 FiO2 40 10/12/23 00:00 Oxygen Flow Rate 2 10/11/23 10:40 BMI result Body Mass Index 37.2 <DILIP Reed - Last Filed: 10/12/23 01:14> DS: Data Data Completed and Pending Completed studies during hospitalization [Text1]: Procedures Assistance with Respiratory Ventilation, Less than 24 Consecutive Hours, Juan Antonio nuous Positive Airway Pressure (06/09/22) Excision of Stomach, Pylorus, Via Natural or Artificial Opening Endoscopic, Diagnostic (06/13/23) Insertion of Endotracheal Airway into Trachea, Via Natural or Artificial Opening (04/10/22) Insertion of Infusion Device into Right Basilic Vein, Percutaneous Approach (01/21/21) Insertion of Infusion Device into Superior Vena Cava, Percutaneous Approach (04/10/22) Introduction of Vasopressor into Central Vein, Percutaneous Approach (04/10/22) Performance of Urinary Filtration, Intermittent, Less than 6 Hours Per Day (04/10/22) Respiratory Ventilation, 24-96 Consecutive Hours (04/10/22) Transfusion of Nonautologous Red Blood Cells into Peripheral Vein, Percutaneous Approach (06/13/23) Ultrasonography of Superior Vena Cava, Guidance (04/10/22) <DILIP Reed - Last Filed: 10/12/23 01:14> Labs on day of discharge: Laboratory Results - last 24 hr 10/11/23 10/11/23 10/11/23 11:32 12:41 14:01 WBC 17.2 H 18.0 H RBC 3.45 L 3.38 L Hgb 9.8 L 9.5 L Hct 31.3 L 30.5 L MCV 90.7 90.2 MCH 28.4 28.1 MCHC 31.3 31.1 RDW 16.4 H 16.2 H Plt Count 563 H D 530 H MPV 10.4 10.0 Immature Gran % (Auto) 1.9 H Neut % (Auto) 88.7 H Lymph % (Auto) 3.3 L Nelson % (Auto) 5.8 Eos % (Auto) 0.0 Baso % (Auto) 0.3 Lymph # (Auto) 0.6 L Nelson # (Auto) 1.0 Eos # (Auto) 0.0 Baso # (Auto) 0.1 Abs Immat Gran (auto) 0.33 H Absolute Neuts (auto) 15.2 H Absolute Nucleated RBC 0.000 0.000 Nucleated RBC % (auto) 0.0 0.0 Neutrophils % (Manual) Band Neutrophils % Lymphocytes % (Manual) Atypical Lymphs % (Man) Monocytes % (Manual) Basophils % (Manual) Metamyelocytes % Abs Neuts (Manual) Lymphocytes # (Manual) Atyp Lymphs # (Manual) Monocytes # (Manual) Basophils # (Manual) Metamyelocytes # Nucleated RBCs Smudge Cells Platelet Estimate Large Platelets Plt Morphology Comment RBC Morphology Acanthocytes (Spur) PT 15.0 H 14.6 H INR 1.2 H 1.2 H APTT 27.1 aPTT Heparin Protocol 29.8 L O2 Saturation ABG pH at Pt Temp ABG pCO2 at Pt Temp ABG pO2 at Pt Temp ABG HCO3 ABG Base Excess (Actual) VBG pH VBG pCO2 VBG pO2 VBG HCO3 VBG O2 Saturation VBG Base Excess Sodium 143 Potassium 4.7 Chloride 109 H Carbon Dioxide 21 L Anion Gap 18 BUN 41 H Creatinine 2.68 H Estim Creat Clear Calc 21.1 Estimated GFR 17 Random Glucose 184 H Lactic Acid Lactic Acid F/U @ 2Hr Calcium 9.0 D Magnesium 2.2 Total Bilirubin 0.5 AST 15 ALT 6 Alkaline Phosphatase 113 Total Creatine Kinase 94 Troponin I High Sens 266.2 H* D 410.0 H* D B-Natriuretic Peptide 1401 H Total Protein 8.0 Albumin 3.3 L Procalcitonin Influenza Type A (PCR) NEGATIVE Influenza Type B (PCR) NEGATIVE RSV RNA Qual (PCR) NEGATIVE SARS-CoV-2 RNA (RT-PCR) POSITIVE A Blood Type Antibody Screen Crossmatch 10/11/23 10/11/23 10/11/23 17:01 17:52 17:58 WBC 23.3 H RBC 2.34 L D Hgb 6.7 L* D Hct 22.6 L D MCV 96.6 D MCH 28.6 MCHC 29.6 L RDW 16.7 H Plt Count 131 L D MPV 8.6 L Immature Gran % (Auto) Cancelled Neut % (Auto) Cancelled Lymph % (Auto) Cancelled Nelson % (Auto) Cancelled Eos % (Auto) Cancelled Baso % (Auto) Cancelled Lymph # (Auto) Cancelled Nelson # (Auto) Cancelled Eos # (Auto) Cancelled Baso # (Auto) Cancelled Abs Immat Gran (auto) Cancelled Absolute Neuts (auto) Cancelled Absolute Nucleated RBC 0.080 H Nucleated RBC % (auto) 0.3 H Neutrophils % (Manual) 85 H Band Neutrophils % 6 H Lymphocytes % (Manual) 6 L Atypical Lymphs % (Man) Monocytes % (Manual) Basophils % (Manual) 1 Metamyelocytes % 2 Abs Neuts (Manual) 21.2 H Lymphocytes # (Manual) 1.4 Atyp Lymphs # (Manual) Monocytes # (Manual) Basophils # (Manual) 0.2 Metamyelocytes # 0.5 Nucleated RBCs 1 H Smudge Cells PRESENT Platelet Estimate DECREASED Large Platelets PRESENT Plt Morphology Comment NORMAL RBC Morphology NOTED Acanthocytes (Spur) 1+ (0-2) PT 18.5 H D INR 1.5 H APTT 103.1 H* D aPTT Heparin Protocol O2 Saturation 99.0 ABG pH at Pt Temp 7.23 L ABG pCO2 at Pt Temp 65 H* ABG pO2 at Pt Temp 281 H ABG HCO3 28 H ABG Base Excess (Actual) -0.5 VBG pH 7.15 L* VBG pCO2 59 VBG pO2 45 VBG HCO3 21 L VBG O2 Saturation 54.0 VBG Base Excess -7.3 Sodium 157 H Potassium 4.7 Chloride 109 H Carbon Dioxide 19 L Anion Gap 34 H BUN 42 H Creatinine 2.90 H Estim Creat Clear Calc 19.5 Estimated GFR 16 Random Glucose 167 H Lactic Acid 18.6 H* Lactic Acid F/U @ 2Hr Calcium 10.9 H D Magnesium 2.7 H Total Bilirubin AST ALT Alkaline Phosphatase Total Creatine Kinase Troponin I High Sens 936.4 H* D B-Natriuretic Peptide Total Protein Albumin Procalcitonin Influenza Type A (PCR) Influenza Type B (PCR) RSV RNA Qual (PCR) SARS-CoV-2 RNA (RT-PCR) Blood Type O Positive Antibody Screen NEGATIVE Crossmatch See Detail 10/11/23 10/11/23 10/11/23 21:43 21:45 22:33 WBC 34.3 H* RBC 1.85 L D Hgb 5.4 L* Hct 18.7 L* MCV 101.1 H MCH 29.2 MCHC 28.9 L RDW 16.6 H Plt Count 205 D MPV 10.4 Immature Gran % (Auto) Cancelled Neut % (Auto) Cancelled Lymph % (Auto) Cancelled Nelson % (Auto) Cancelled Eos % (Auto) Cancelled Baso % (Auto) Cancelled Lymph # (Auto) Cancelled Nelson # (Auto) Cancelled Eos # (Auto) Cancelled Baso # (Auto) Cancelled Abs Immat Gran (auto) Cancelled Absolute Neuts (auto) Cancelled Absolute Nucleated RBC 0.130 H Nucleated RBC % (auto) 0.4 H Neutrophils % (Manual) 72 Band Neutrophils % 12 H Lymphocytes % (Manual) 10 L Atypical Lymphs % (Man) 1 Monocytes % (Manual) 3 Basophils % (Manual) Metamyelocytes % 2 Abs Neuts (Manual) 28.8 H Lymphocytes # (Manual) 3.4 Atyp Lymphs # (Manual) 0.3 Monocytes # (Manual) 1.0 Basophils # (Manual) Metamyelocytes # 0.7 Nucleated RBCs Smudge Cells Platelet Estimate DECREASED Large Platelets PRESENT Plt Morphology Comment NOTED RBC Morphology NOTED Acanthocytes (Spur) 2+ (3-5) PT INR APTT aPTT Heparin Protocol 179.5 H* D O2 Saturation ABG pH at Pt Temp ABG pCO2 at Pt Temp ABG pO2 at Pt Temp ABG HCO3 ABG Base Excess (Actual) VBG pH 7.02 L* VBG pCO2 41 VBG pO2 37 VBG HCO3 11 L VBG O2 Saturation Not Reportable VBG Base Excess -18.0 Sodium 146 H Potassium 4.5 Chloride 104 Carbon Dioxide 12 L Anion Gap 35 H BUN 39 H Creatinine 2.82 H Estim Creat Clear Calc 20.0 Estimated GFR 16 Random Glucose 352 H* Lactic Acid Lactic Acid F/U @ 2Hr 25.8 H* Calcium 8.5 D Magnesium Total Bilirubin 0.7 AST 1393 H ALT 533 H Alkaline Phosphatase 236 H Total Creatine Kinase Troponin I High Sens 2904.7 H* D B-Natriuretic Peptide Total Protein 3.9 L Albumin 1.6 L Procalcitonin 0.55 Influenza Type A (PCR) Influenza Type B (PCR) RSV RNA Qual (PCR) SARS-CoV-2 RNA (RT-PCR) Blood Type O Positive Antibody Screen NEGATIVE Crossmatch See Detail <DILIP Reed - Last Filed: 10/12/23 01:14> Discharge Plan Discharge Date/Time: 10/12/23 01:13 <DILIP Reed - Last Filed: 10/12/23 01:14> Patient Disposition: <DILIP Reed - Last Filed: 10/12/23 01:14> Discharge Diagnosis: Multiorgan failure/ cardio respiratory arrest covid 19 <DILIP Reed - Last Filed: 10/12/23 01:14> Multiorgan failure/ cardio respiratory arrest covid 19 <Golden Myles MD - Last Filed: 10/12/23 10:41> Referrals: Janet Phelan MD [Primary Care Provider] - 1 Week <DILIP Reed - Last Filed: 10/12/23 01:14> Discharge Medications: No Action cholecalciferol (vitamin D3) 1,250 mcg (50,000 unit) capsule 1,250 mcg PO QWEEK Qty: 12 3RF metoprolol tartrate 25 mg tablet 25 mg PO BID 90 Days Qty: 180 3RF (DME) lancets [FreeStyle Lancets] 28 gauge misc See Rx Instructions .ROUTE .MEDSUPPLY Qty: 100 0RF Rx Instructions: As directed (DME) FreeStyle Lite Strips Strip See Rx Instructions .Route Qty: 100 0RF Rx Instructions: As directed (DME) pen needle, diabetic [Pen Needle] 32 gauge x 5/32 needle See Rx Instructions .Route Qty: 50 0RF Rx Instructions: As directed acetaminophen 650 mg tablet extended release 650 mg PO TID montelukast 10 mg tablet 10 mg PO BEDTIME rosuvastatin 20 mg tablet 20 mg PO BEDTIME duloxetine 60 mg capsule,delayed release(DR/EC) 60 mg PO DAILY Arnuity Ellipta 100 mcg/actuation blister with device 1 inh INHALATION DAILY insulin glargine [Lantus Solostar U-100 Insulin] 100 unit/mL (3 mL) insulin pen 6 unit subcut BEDTIME insulin lispro [Humalog KwikPen Insulin] 100 unit/mL insulin pen See Protocol subcut TIDAC Protocol: Insulin Correction Scale Less than or equal to 110 ---- Give (units): 0 111 to 150 Give (units): 0 151 to 200 Give (units): 2 201 to 250 Give (units): 4 251 to 300 Give (units): 6 301 to 350 Give (units): 8 Greater than 350 Give (units): 10 Call MD if Blood Glucose > : 350 Eliquis 5 mg tablet 5 mg PO BID (DME) lancing device with lancets [H[employer] Learning Cent[employer] Delica Lanc Device] Kit See Rx Instructions .ROUTE .MEDSUPPLY Qty: 1 Rx Instructions: As directed albuterol sulfate 90 mcg/actuation HFA aerosol inhaler 2 puff inhalation QID PRN (Reason: Respiratory Distress) estradiol 1 mg tablet 1 mg PO DAILY Rx Instructions: off 1 week; repeat cycle <DILIP Reed - Last Filed: 10/12/23 01:14> Discharge Orders: Discharge Order (Routine); Ordered 10/12/23 Ordered By: Kelechi Helton <DILIP Reed - Last Filed: 10/12/23 01:14> Print Language: Tamazight <DILIP Reed - Last Filed: 10/12/23 01:14> Discharge Date/Time: 10/12/23 03:28 <DILIP Reed - Last Filed: 10/12/23 01:14>
[2023-10-12 01:50] VITALS: PULSE 41
--- NOTE | 2023-10-12 03:17 | PC.NURSE ---
Patient arrived to ICU from ED via stretcher with ED RN, dental laboratory technology teacher, and RT at approx 2100. Upon initial assessment, patient intubated and sedated, fentanyl gtt infusing at 50 mcg/hr, RASS -5. Fentanyl gtt discontinued by PA, see MAR. Patient remained completely unresponsive. Afib on tele, HR 90s-100s. A-line to left radial not in place and nonfunctional upon arrival, dampened waveform and not reading appropriately. Difficult to obtain NIBP, cuff placed on right calf. PA notified, new A-line placed to right radial with appropriate waveform, SBP 80s-90s. Levophed running at 3 mcg/kg/min on arrival from ED, PA notified. Vasopressin titrated per PA to 0.04 units/hr, then switched to 4x concentrated levophed and started per MAR. Epi gtt ordered and titrated per MAR. 2 bags albumin IV given as ordered, vitamin K IVPB, and sodium bicarb infusion administered per APR. 1 unit RBCs transfusing upon arrival and completed per TAR without s/s of transfusion reaction. Additional blood products ordered (see TAR), delay in initial administration due to need for new type and screen per blood bank, PA notified. Max doses of 3 vasopressors with SBP 70s-80s and HR 80s-90s, PA initiated goals of care discussion with family/HCP. ETT #7.0, 24cm @ lip, ACVC+ 22/340/6.0/40%, synchronous with the vent. In-line suction catheter with bloody secretions and OGT clamped with bloody output noted in tubing. Solis ordered, insertion deferred by PA due to hemodynamic instability. Patient bleeding from multiple sites, sandbag applied to right femoral TLC site d/t continuous bleeding. PA notified of all critical labs and acute changes in patient status. Advance care planning meeting held, code status decision made to be initially DNR, then subsequently CATEGORY ANALYST. Multiple rounds of family members at bedside to say goodbye, emotional support provided as needed. At approx. 0045, due to patient decompensation despite maximum support (HR 40s, SBP 50s), all infusions paused per PA. Patient given 100 mcg fentanyl IVP per MAR for comfort per PA. HCPs at bedside, time of 010, pronounced by DILIP Helton. [facility] called, patient declined, . Post mortem care provided [place] [facility] [place].
[2023-10-12 15:49] LABS: Glucose, Whole Blood 185 mg/dL (60-115)
== END 2023-10-12 03:28 | disposition expired | DRG 871 ==
LOC: HO.ED 12:01 → HO.EDOVER 20:18 → HO.ICU 20:21
PROVIDERS: Physician Assistant Medical; Admitting Provider Physician Assistant Medical; Emergency Provider Student in an Organized Health Care Education/Training Program; PCP Internal Medicine; Visit Provider Physician Assistant Medical
DX: A41.9 Sepsis, unspecified organism (principal); G93.41 Metabolic encephalopathy; U07.1 COVID-19; J12.9 Viral pneumonia, unspecified; J15.9 Unspecified bacterial pneumonia; J80 Acute respiratory distress syndrome; N17.0 Acute kidney failure with tubular necrosis; I21.4 Non-ST elevation (NSTEMI) myocardial infarction; N18.4 Chronic kidney disease, stage 4 (severe); D62 Acute posthemorrhagic anemia; E87.20 Acidosis, unspecified; I46.9 Cardiac arrest, cause unspecified; Z66 Do not resuscitate; D69.6 Thrombocytopenia, unspecified; E88.09 Other disorders of plasma-protein metabolism, not elsewhere classified; R57.0 Cardiogenic shock; G72.89 Other specified myopathies; E11.22 Type 2 diabetes mellitus with diabetic chronic kidney disease; I12.9 Hypertensive chronic kidney disease with stage 1 through stage 4 chronic kidney disease, or unspecified chronic kidney disease; Z85.528 Personal history of other malignant neoplasm of kidney; I48.0 Paroxysmal atrial fibrillation; G89.4 Chronic pain syndrome; D63.1 Anemia in chronic kidney disease; I25.10 Atherosclerotic heart disease of native coronary artery without angina pectoris; Z87.891 Personal history of nicotine dependence; Z79.4 Long term (current) use of insulin; Z79.01 Long term (current) use of anticoagulants; Z79.899 Other long term (current) drug therapy
CPT/HCPCS: 0241U; 36415; 70450; 71045; 72125; 78580; 80048; 80053; 82550; 82803; 82947; 83605; 83735; 83880; 84145; 84484; 85007; 85025; 85027; 85610; 85730; 86850; 86900; 86901; 86923; 87040; 87076; 87205; 93005; 94002; 94799; 99285; A9540; J0171; J0248; J0330; J1644; J2470; J2543; J2598; J3010; J3370; J3430; J7168; P9016; P9047

== ENCOUNTER → 2023-10-11 19:53 | Outpatient (BNV) | payer OTHER, SELFPAY | PROVIDERS: Admitting Provider Physician Assistant Medical; Emergency Provider Student in an Organized Health Care Education/Training Program; PCP Internal Medicine; Visit Provider Physician Assistant Medical | DX: I46.9 Cardiac arrest, cause unspecified (principal) | CPT/HCPCS: 36620; 99239; 99291; 99292 ==